=== PATIENT | male | born 1955 | race Caucasian/White ===

== ENCOUNTER → 2016-09-22 | Outpatient (CLI) | payer BC ==
[~2016-09-22] MED LIST: ACHD5005 PO; ALLP300T PO; ALPR0.25 PO; ALPR0.254 PO; AMLO10TA82 PO; AMLO5TAB2 PO; ASP325TEC PO; ASP81TEC PO; ASPI-875 PO; ASPI-892 PO; ASPI-983 PO; ASPI-999 PO; ATOR80TA2 PO; ATOR80TA75 PO; ATOR80TA76 PO; CLON0.1T PO; CLOP75TA PO; CLOP75TA28 PO; CLPD75T PO; COLC0.6T56 PO; COLC0.6T7 PO; CYCL10TA9 PO; ESCI5TAB12 PO; FEBU80TA PO; FISH1CAP15 PO; FURO40TA PO; FURO40TA4 PO; HCTZ12.5T PO; HYDR-3714 PO; HYDR-3812 PO; HYDR25TA4 PO; INDO50CA PO; INSU100I16 SQ; INSU100I29 SQ; INSU100V5 SQ; INSU100V6 SQ; ISM30TCR PO; MAGN400T6 PO; METF-380 PO; METF1000 PO; METH4TAB10 PO; METO-272 PO; METO-274 PO; METO100T5 PO; MTP100TCR PO; NIA500ERT PO; NTR.4SL SL; OMEG1CAP51 PO; OXYC-471 PO; PANT40TA3 PO; POTA10TA86 PO; RAMI10TA PO; RAMI2.5C PO; RAMI5CAP PO; RANO10003 PO; RANO500T3 PO; RMP2.5C PO; SMV20T PO; SUCR1TAB PO; SUCR1TAB36 PO; TEMA15CA6 PO; Ticagrelor PO; ZLP10T PO; ZOLP10TA5 PO
--- OUTSIDE RECORDS SUMMARY | 2016-09-22 13:30 | XMS REPORT | Continuity of Care Document ---
Author Author [facility] Organization [facility] Address Unknown Phone Unavailable Care Team Providers Care Mobile Paramedical Examiner Name Role Phone BENJAMIN ROMAN DO PCP Insurance Providers Payer Name Policy Number Subscriber Name Relationship [facility] [id number] Mickey Gillette 20 Self / Same As Patient Advance Directives Directive Response Recorded Date/Time Advance Directives No 04/02/14 1:10pm Health Care Power of Acid Tester No 04/02/14 1:10pm Organ Donor Yes 04/02/14 1:10pm Resuscitation Status Full Code 04/02/14 1:10pm Chief Complaint and Reason for Visit Chief Complaint CHEST PAIN Reason for Visit Coronary artery disease Problems Medical Problems Problem Onset Date Status Coronary artery disease Unknown Resolved Medications Medication Dose Route Sig Days/Qty Instructions Order Date Discontinued Date Status Metformin HCl (Glucophage) 1,000 Mg PO TWICE A DAY WITH MEALS Active Hydrochlorothiazide 12.5 Mg PO DAILY 01/21/11 11/08/13 Discontinued Amlodipine Besylate (Norvasc 10 Mg) 10 Mg PO DAILY 01/21/11 Discontinued Ramipril 10 Mg PO DAILY 01/21/11 04/04/14 Discontinued Aspirin 81 Mg PO DAILY 01/21/11 01/22/11 Discontinued Nitroglycerin 0.4 Mg SL PRN CHEST PAIN 01/21/11 11/08/13 Discontinued [place]-3 Fatty Acids/Fish Oil 1,000 Mg PO DAILY 01/21/11 11/08/13 Discontinued Allopurinol 300 Mg PO DAILY 01/21/11 11/08/13 Discontinued Simvastatin 20 Mg PO DAILY 01/21/11 11/08/13 Discontinued Metoprolol Succinate 50 Mg PO EVERY PM 01/21/11 11/08/13 Discontinued Metoprolol Succinate 100 Mg PO TWICE A DAY 01/21/11 04/04/14 Discontinued Niacin 1,000 Mg PO DAILY 01/21/11 11/08/13 Discontinued Insulin Glargine,Hum.rec.anlog 90 Unit SQ BEDTIME 01/21/11 11/08/13 Discontinued Clopidogrel Bisulfate 75 Mg PO DAILY 01/21/11 04/02/14 Discontinued Zolpidem Tartrate 10 Mg PO BEDTIME PRN SLEEP NEEDED FOR SLEEP Active Aspirin 325 Mg PO DAILY 01/22/11 04/04/14 Discontinued Hydrochlorothiazide 25 Mg PO DAILY 11/08/13 Active Atorvastatin Calcium 80 Mg PO DAILY 11/08/13 Active Potassium Chloride 10 Meq PO DAILY 11/08/13 Active Fish Oil/Dha/Epa 1,200 Mg PO DAILY 11/08/13 Active Nitroglycerin 0 SL DIRECTED PRN CHEST PAIN 11/08/13 Active Insulin Detemir 50 Unit SQ TWICE A DAY 11/08/13 04/04/14 Discontinued Indomethacin 50 Mg PO THREE TIMES A DAY PRN GOUT PAIN NEEDED FOR GOUT FLARES 11/08/13 04/04/14 Discontinued Acetaminophen/Hydrocodone Bitart 1 Tab PO THREE TIMES A DAY PRN PAIN 5- 325MG TABLET 11/08/13 Active Febuxostat 80 Mg PO DAILY 0 Qty 04/02/14 Active Clopidogrel Bisulfate 75 Mg PO DAILY 30 Qty 04/04/14 Active Ramipril 2.5 Mg PO DAILY 30 Qty 04/04/14 Active [Ticagrelor] 90 Mg PO TWICE A DAY 60 Qty 04/04/14 Active Metoprolol Succinate 150 Mg PO TWICE A DAY 90 Qty 04/04/14 Active Insulin Detemir 55 Unit SQ TWICE A DAY 5 Qty 04/04/14 Active Aspirin 81 Mg PO DAILY 30 Qty 04/04/14 Active Social History Social History Problem Response Recorded Date/Time Alcohol Use Denies Use 04/02/2014 1:10pm Recreational Drug Use No 04/02/2014 1:10pm Smoking Status Former Smoker 04/02/2014 2:33pm Do you dip or chew tobacco? No 04/02/2014 2:33pm Query Response Start Date Stop Date Smoking Status Former Smoker Hospital Discharge Instructions Patient Instructions Physician Instructions New, Converted, or Re-newed RX: Call to Patient Pharmacy Plan of Care/Instructions/FU: pt needs to follow up with cardiology in [address] roman in the next 2 weeks pt needs to bring in a copy of his blood glucose readings to his next office visit with dr. roman. Activity as Tolerated: Yes Dicharge Diet: ADA Diet Return to the hospital for: chest pain, shortness of breath, unusual bleeding, severe fatigue, abdominal pain, blood from stool, or any concern for lifethreatening illness or injury Plan of Care Discharge Date 04/04/14 7:00pm Disposition 01 HOME, SELF-CARE Instructions/Education Provided Myocardial Infarction (DC) Forms Provided Follow-Up Appts. Prescriptions See Medications Section Functional Status Query Response Date Recorded Patient Orientation Person Place Time Situation Normal For Age April 04, 2014 9:52pm Comprehension Ability Understands Concepts April 04, 2014 8:30am Allergies, Adverse Reactions, Alerts Allergen Type Severity Reaction Status Last Updated carvedilol Allergy Unknown Active 01/22/10 Immunizations Name Given Type Date of Influenza Vaccine 10/26/13 Historical pneumococcal polysaccharide PPV23 04/04/14 Administered pneumococcal polysaccharide PPV23 04/04/14 Administered pneumococcal polysaccharide PPV23 04/04/14 Administered Vital Signs Acute Vital Signs Vital Response Date/Time Temperature (Fahrenheit) 98.0 degrees F (97.6 - 99.5) Temperature (Calculated Celsius) 36.81540 degrees C (36.4 - 37.5) Temperature Source Tympanic Pulse Rate (adult) 84 bpm (60 - 90) Respiratory Rate 20 bpm (12 - 24) O2 Sat by Pulse Oximetry 97 % (88 - 100) Blood Pressure 121/80 mm Hg Pain Pain Intensity 0 Height (Feet) 5 feet Height (Inches) 8.00 inches Height (Calculated Centimeters) 172.282046 cm Weight (Pounds) 188 pounds Weight (Ounces) 9.0 oz Weight (Calculated Grams) 84352.512 gm Weight (Calculated Kilograms) 85.202866 kilograms Calculated BMI 28.89 Results Test Source Date Result Interp. Ref. Range Comments Activated Partial Thromboplast Time November 07, 2013 8:35am 36 SEC H 24- 35 Alanine Aminotransferase (ALT/SGPT) November 07, 2013 8:35am 34 U/L N 30- 65 Albumin November 07, 2013 8:35am 3.9 G/DL N 3.4-5.0 Alkaline Phosphatase November 07, 2013 8:35am 69 U/L N 50-136 Aspartate Amino Transf (AST/SGOT) November 07, 2013 8:35am 12 U/L L 15-37 BUN/Creatinine Ratio November 07, 2013 8:35am 13 - Basophils # (Auto) May 24, 2013 7:57am 0.0 10^3/uL N 0.0-0.1 Basophils (%) (Auto) May 24, 2013 7:57am 0 % N 0-10 Blood Urea Nitrogen November 07, 2013 8:35am 16 MG/DL N 7-18 Calcium Level November 07, 2013 8:35am 9.5 MG/DL N 8.5-10.1 Carbon Dioxide Level November 07, 2013 8:35am 24 MMOL/L N 21-32 Chloride Level November 07, 2013 8:35am 102 MMOL/L N 101-110 Cholesterol Level November 07, 2013 8:35am 98 MG/DL N -200 Creatinine November 07, 2013 8:35am 1.2 MG/DL N 0.6-1.3 Eosinophils # (Auto) May 24, 2013 7:57am 0.7 10^3/uL H 0.0-0.3 Eosinophils (%) (Auto) May 24, 2013 7:57am 7 % N 0-10 Free Thyroxine May 24, 2013 7:57am 0.65 NG/DL N 0.59-1.17 Glucose Level November 07, 2013 8:35am 262 MG/DL H 74-106 HDL Cholesterol November 07, 2013 8:35am 26 MG/DL L 35-60 Hematocrit November 07, 2013 8:35am 43 % N 40-54 Hemoglobin November 07, 2013 8:35am 15.0 G/DL N 13.3-17.7 Hemoglobin A1c January 25, 2014 11:57am 7.2 % H 4.5-6.2 LDL Cholesterol November 07, 2013 8:35am 50 MG/DL N 0-129 Lymphocytes # (Auto) May 24, 2013 7:57am 2.6 X 10^3 N 1.0-4.0 Lymphocytes (%) (Auto) May 24, 2013 7:57am 26 % N 12-44 Mean Corpuscular Hemoglobin November 07, 2013 8:35am 30 PG N 25-34 Mean Corpuscular Hemoglobin Concent November 07, 2013 8:35am 35 G/DL N 32- 36 Mean Corpuscular Volume November 07, 2013 8:35am 85 FL N 80-99 Mean Platelet Volume November 07, 2013 8:35am 9.6 FL N 7.4-10.4 Monocytes # (Auto) May 24, 2013 7:57am 0.5 X 10^3 N 0.0-1.0 Monocytes (%) (Auto) May 24, 2013 7:57am 6 % N 0-12 Neutrophils # (Auto) May 24, 2013 7:57am 6.0 X 10^3 N 1.8-7.8 Neutrophils (%) (Auto) May 24, 2013 7:57am 61 % N 42-75 Platelet Count November 07, 2013 8:35am 291 10^3/uL N 130-400 Potassium Level November 07, 2013 8:35am 3.8 MMOL/L N 3.6-5.0 Prostate Specific Antigen May 24, 2013 7:57am 0.35 NG/ML - Interpretative data is available online at:[email or web address] Enter Test Number:[id number] Prothromb Time International Ratio January 20, 2011 8:05am 1.0 N 0.8-1.4 INTERPRETIVE DATASUGGESTED THERAPEUTIC RANGE FOR INR'S: VENOUS THROMBOSIS, PULMONARY EMBOLISM, OR PREVENTION OF SYSTEMIC EMBOLISM (EG. IN ATRIAL FIBRILLATION): 2.0 - 3.0 MECHANICAL PROSTHETIC HEART VALVES: 2.5 - 3.5* *NOTE: INR'S UP TO 4.5 MAY BE NECESSARY IN SELECTED GROUPS OF HIGH RISK PATIENTS. [employer] [place] [employer] CONSENSUS CONFERENCE ON ANTITHROMBOTIC THERAPY (2000). Prothrombin Time November 07, 2013 8:35am 12.4 SEC N 12.2-14.7 Red Blood Count November 07, 2013 8:35am 5.04 10^6/uL N 4.35-5.85 Red Cell Distribution Width November 07, 2013 8:35am 13.1 % N 10.0-14.5 Sodium Level November 07, 2013 8:35am 137 MMOL/L N 135-145 Thyroid Stimulating Hormone (TSH) May 24, 2013 7:57am 0.96 UIU/ML N 0.34-5.60 Total Bilirubin November 07, 2013 8:35am 0.4 MG/DL N 0.0-1.0 Total Protein November 07, 2013 8:35am 7.8 G/DL N 6.4-8.2 Triglycerides Level November 07, 2013 8:35am 108 MG/DL N 30.0-150.0 Uric Acid March 16, 2013 8:33am 8.5 MG/DL H 2.6-7.2 VLDL Cholesterol November 07, 2013 8:35am 22 MG/DL N 5-40 White Blood Count November 07, 2013 8:35am 12.4 10^3/uL H 4.3-11.0 Glucometer January 22, 2011 6:50am 155 MG/DL H 70-110 Estimat Glomerular Filtration Rate November 07, 2013 8:35am > 60 - GFR INTERPRETIVE DATA UNITS FOR ESTIMATED GFR (eGFR): mL/min/1.73 M2 REFERENCE RANGE FOR ESTIMATED GFR (eGFR) eGFR NORMAL eGFR >60 MODERATELY DECREASED eGFR 30-59 SEVERLY DECREASED eGFR 15-29 KIDNEY FAILURE <15 (OR DIALYSIS) INR Comment November 07, 2013 8:35am 0.9 N 0.8-1.4 INTERPRETIVE DATASUGGESTED THERAPEUTIC RANGE FOR INR'S: VENOUS THROMBOSIS, PULMONARY EMBOLISM, OR PREVENTION OF SYSTEMIC EMBOLISM (EG. IN ATRIAL FIBRILLATION): 2.0 - 3.0 MECHANICAL PROSTHETIC HEART VALVES: 2.5 - 3.5* *NOTE: INR'S UP TO 4.5 MAY BE NECESSARY IN SELECTED GROUPS OF HIGH RISK PATIENTS. [employer] [place] [employer] CONSENSUS CONFERENCE ON ANTITHROMBOTIC THERAPY (2000). MRSA Screen Nasal January 21, 2010 9:35am MRSA not isolated Procedures Procedure Status Date Provider(s) Tracing only of electrocardiogram completed 04/02/14 TRISHA ANDRE MD Tracing only of electrocardiogram completed 04/02/14 ROBERT CALLAHAN MD Tracing only of electrocardiogram completed 04/02/14 ROBERT CALLAHAN MD Tracing only of electrocardiogram completed 04/02/14 Elli AGUIRRE MD Tracing only of electrocardiogram completed 04/03/14 Elli AGUIRRE MD Tracing only of electrocardiogram completed 04/04/14 Elli AGUIRRE MD Encounters Encounter Location Date/Time Discharged Inpatient Via [facility] 04/03/14 8:58am Recent Diagnosis Coronary artery disease
--- NOTE | 2016-09-24 08:29 | ECHOCARDIOGRAPHY REPORT ---
PROCEDURE PHYSICIAN: RANJAN CABRERA DATE OF PROCEDURE: 09/22/2016 TWO DIMENSIONAL ECHOCARDIOGRAM REPORT PRIMARY PHYSICIAN: Dr. Umanzor OTHER PHYSICIAN: REFERRING PHYSICIAN: ORDERING PHYSICIAN: Denise Navarrete APRN INDICATION FOR THE PROCEDURE: 1. Coronary artery disease. 2. Hypertension. 3. Hyperlipidemia. 4. Chest discomfort. MEASUREMENTS DERIVED VALUES LV DIAMETER (LAX) NORMALS NORMALS Diastolic 5.3 (3.6-5.2) Eject. Fract. (60%+/-6%) Systolic (2.3-3.9) Diastolic Vol. % Shortening (0.22-0.42) Systolic Vol. Aortic Root 3.4 IVS THICKNESS Diastolic 0.7 (0.6-1.1) LVPW THICKNESS Diastolic 0.8 (0.6-1.1) LA DIAMETER Systolic 3.5 (2.1-3.7) DESCRIPTION: Two-dimensional echocardiography shows normal global left ventricular systolic function with normal regional wall motion. Aortic, mitral and tricuspid valve leaflets show good leaflet excursion. Left ventricular ejection fraction is approximately 65%. Doppler imaging shows trivial tricuspid regurgitation. There is no Doppler evidence of significant valvular stenosis. Aortic valve leaflets are not very well visualized. There is no evidence of significant intracardiac shunt. Mitral inflow is suggestive of moderate diastolic dysfunction of the left ventricle. Inferior vena cava does exhibit inspiratory collapse. There is no evidence of significant valvular stenosis. Pulmonary artery systolic pressure is estimated to be approximately 20 mmHg. CONCLUSIONS: 1. Well preserved left ventricular systolic function with an ejection fraction of approximately 65%. 2. Moderate diastolic dysfunction of the left ventricle. 3. Trivial tricuspid regurgitation and pulmonary artery systolic pressure is approximately 20 mmHg. 4. No evidence of any significant valvular stenosis. Job ID: [id number] Dictated Date: 09/23/2016 14:21:34 Research And Development Manager Date: 09/24/2016 08:22:49 / tbk
== END ==
LOC: CARD 13:27
PROVIDERS: ATTEND Nurse Practitioner Family
DX: R06.09 Other forms of dyspnea (principal); I25.10 Atherosclerotic heart disease of native coronary artery without angina pectoris; I65.23 Occlusion and stenosis of bilateral carotid arteries; I10 Essential (primary) hypertension; E78.4 Other hyperlipidemia
CPT/HCPCS: 93306

== ENCOUNTER 2016-09-23 08:44 | Day surgery (SDC) | payer BC ==
[2016-09-23] VITALS (10 sets, daily range): BP systolic 142–157; BP diastolic 79–92
[~2016-09-23] VITALS: Ht 172.7 cm; Wt 79.4 kg
[~2016-09-23 08:44] MED LIST changes: -RAMI5CAP PO
[2016-09-23] MEDS ORDERED: LIDOCAINE 1% INJ 20 ML (XYLOCAINE) VIAL ONE (08:46)
[2016-09-23] MEDS ORDERED: HEParin (CATH LAB) 2,000 ML IV ONE (08:47)
[2016-09-23] MEDS ORDERED: NS IV 1000 ML 1,000 ML ONE (08:47)
--- OUTSIDE RECORDS SUMMARY | 2016-09-23 08:48 | XMS REPORT | Continuity of Care Document ---
Author Author [facility] Organization [facility] Address Unknown Phone Unavailable Care Team Providers Care Preschool Teacher Name Role Phone BENJAMIN ROMAN DO PCP Insurance Providers Payer Name Policy Number Subscriber Name Relationship [facility] [id number] Mickey Gillette 20 Self / Same As Patient Advance Directives Directive Response Recorded Date/Time Advance Directives No 04/02/14 1:10pm Health Care Power of Melter Helper No 04/02/14 1:10pm Organ Donor Yes 04/02/14 [...] SL PRN CHEST PAIN 01/21/11 11/08/13 Discontinued [place]-3 Fatty Acids/Fish Oil 1,000 Mg PO DAILY [...] F (97.6 - 99.5) Temperature (Calculated Celsius) 36.45327 degrees C (36.4 - 37.5) Temperature Source Tympanic Pulse Rate (adult) 84 bpm (60 - 90) Respiratory Rate 20 bpm (12 - 24) O2 Sat by Pulse Oximetry 97 % (88 - 100) Blood Pressure 121/80 mm Hg Pain Pain Intensity 0 Height (Feet) 5 feet Height (Inches) 8.00 inches Height (Calculated Centimeters) 172.924439 cm Weight (Pounds) 188 pounds Weight (Ounces) 9.0 oz Weight (Calculated Grams) 94454.512 gm Weight (Calculated Kilograms) 85.969729 kilograms Calculated BMI 28.89 Results Test Source [...] NG/ML - Interpretative data is available online at:[email or web address] Enter Test Number:[id number] Prothromb Time International Ratio January 20, 2011 8:05am 1.0 N 0.8-1.4 INTERPRETIVE DATASUGGESTED THERAPEUTIC RANGE FOR INR'S: VENOUS THROMBOSIS, PULMONARY EMBOLISM, OR PREVENTION OF SYSTEMIC EMBOLISM (EG. IN ATRIAL FIBRILLATION): 2.0 - 3.0 MECHANICAL PROSTHETIC HEART VALVES: 2.5 - 3.5* *NOTE: INR'S UP TO 4.5 MAY BE NECESSARY IN SELECTED GROUPS OF HIGH RISK PATIENTS. [employer] [place] [employer] CONSENSUS CONFERENCE ON [...] SELECTED GROUPS OF HIGH RISK PATIENTS. [employer] CONSENSUS CONFERENCE ON [...] Encounters Encounter Location Date/Time Discharged Inpatient Via [facility] 04/03/14 8:58am Recent Diagnosis Coronary artery disease
--- OUTSIDE RECORDS SUMMARY | 2016-09-23 08:48 | XMS REPORT | Continuity of Care Document ---
Author Author [facility] Organization [facility] Address Unknown Phone Unavailable Care Team Providers Care Regional Branch Manager Name Role Phone BENJAMIN ROMAN DO PCP Insurance Providers Payer Name Policy Number Subscriber Name Relationship [facility] [id number] Mickey Gillette 20 Self / Same As Patient Advance Directives Directive Response Recorded Date/Time Advance Directives No 04/02/14 1:10pm Health Care Power of Machine Adjuster Leader No 04/02/14 1:10pm Organ Donor Yes 04/02/14 [...] SL PRN CHEST PAIN 01/21/11 11/08/13 Discontinued [place]-3 Fatty Acids/Fish Oil 1,000 Mg PO DAILY [...] F (97.6 - 99.5) Temperature (Calculated Celsius) 36.68292 degrees C (36.4 - 37.5) Temperature Source Tympanic Pulse Rate (adult) 84 bpm (60 - 90) Respiratory Rate 20 bpm (12 - 24) O2 Sat by Pulse Oximetry 97 % (88 - 100) Blood Pressure 121/80 mm Hg Pain Pain Intensity 0 Height (Feet) 5 feet Height (Inches) 8.00 inches Height (Calculated Centimeters) 172.037902 cm Weight (Pounds) 188 pounds Weight (Ounces) 9.0 oz Weight (Calculated Grams) 93002.512 gm Weight (Calculated Kilograms) 85.153921 kilograms Calculated BMI 28.89 Results Test Source [...] NG/ML - Interpretative data is available online at:[email or web address] Enter Test Number:[id number] Prothromb Time International Ratio January 20, 2011 8:05am 1.0 N 0.8-1.4 INTERPRETIVE DATASUGGESTED THERAPEUTIC RANGE FOR INR'S: VENOUS THROMBOSIS, PULMONARY EMBOLISM, OR PREVENTION OF SYSTEMIC EMBOLISM (EG. IN ATRIAL FIBRILLATION): 2.0 - 3.0 MECHANICAL PROSTHETIC HEART VALVES: 2.5 - 3.5* *NOTE: INR'S UP TO 4.5 MAY BE NECESSARY IN SELECTED GROUPS OF HIGH RISK PATIENTS. [employer] [place] [employer] CONSENSUS CONFERENCE ON [...] SELECTED GROUPS OF HIGH RISK PATIENTS. [employer] [place] [employer] CONSENSUS CONFERENCE ON [...] Encounters Encounter Location Date/Time Discharged Inpatient Via [facility] 04/03/14 8:58am Recent Diagnosis Coronary artery disease
[2016-09-23] MEDS ORDERED: NS IV 1000 ML 1,000 ML IV SCH ×2 (08:55→11:49)
[2016-09-23] MEDS ORDERED: CLON0.1T PO (09:48)
[2016-09-23] MEDS ORDERED: RAMI5CAP PO (09:56)
[2016-09-23 10:09] LABS: MEAN PLATELET VOLUME 9.5 FL (7.4-10.4); RED BLOOD COUNT 5.15 10^6/uL (4.35-5.85); RED CELL DISTRIBUTION WIDTH 13.6 % (10.0-14.5); WHITE BLOOD COUNT 7.9 10^3/uL (4.3-11.0)
[2016-09-23] MEDS ORDERED: diphenhydrAMINE 50 MG/ML INJ (BENADRYL) ONE (10:10)
[2016-09-23] MEDS ORDERED: MIDAZOLAM 5 MG/5 ML (VERSED) VIAL ONE (10:10)
[2016-09-23] MEDS ORDERED: fentaNYL INJECTION 100 MCG/2 ML AMP ONE (10:10)
[2016-09-23 10:20] LABS: PROTHROMBIN TIME PATIENT 12.4 SEC (12.2-14.7)
[2016-09-23 10:29] LABS: ALANINE AMINOTRANSFERASE 19 U/L (0-55); ANION GAP 13 MMOL/L (5-14); ASPARTATE AMINO TRANSFERASE 16 U/L (5-34); BILIRUBIN,TOTAL 0.4 MG/DL (0.1-1.0); BLOOD UREA NITROGEN 20 MG/DL (7-18); BUN/CREATININE RATIO 17; CALCIUM 9.5 MG/DL (8.5-10.1); CARBON DIOXIDE 20 MMOL/L (21-32); CHLORIDE 104 MMOL/L (98-107); CHOLESTEROL 162 MG/DL (< 200); CREATININE SERUM 1.19 MG/DL (0.60-1.30); DIRECT LDL 108 MG/DL (1-129); GFR ESTIMATED > 60; GLUCOSE 214 MG/DL (70-105); SODIUM 137 MMOL/L (135-145); TOTAL PROTEIN 6.9 G/DL (6.4-8.2); TRIGLYCERIDES 228 MG/DL (<150); VLDL CHOLESTEROL 46 MG/DL (5-40)
[2016-09-23] MEDS ORDERED: FLU TRIvalent (5 YOA+) 2016-17 (AFLURIA) 0.5 ML IM ONE (10:45)
--- NOTE | 2016-09-23 11:00 | Cardiac Procedure Note-CS/ASA ---
Pre-Procedure Note Pre-Op Procedure Note H&P Reviewed The H&P was reviewed, patient examined and no changes noted. Date H&P Reviewed: Sep 23, 2016 Time H&P Reviewed: 10:59 Conscious Sedation Pre-Proced Time Reviewed: 10:59 ASA Class: 3 Airway Mallampati Classification: ([place] appropriate class) I. II. III, IV Lungs Heart ASA score ASA 1: a normal healthy patient ASA 2: a patient with a mild systemic disease (mid diabetes, controlled hypertension, obesity ASA 3: a patient with a severe systemic disease that limits activity (angina , COPD, prior Myocardial infarction) ASA 4: a patient with an incapacitating disease that is a constant threat to life (CHF, renal failure) ASA 5: a moribund patient not expected to survive 24 hrs. (ruptured aneurysm) ASA 6: a declared brain patient whose organs are being harvested. For emergent operations, add the letter E after the classification Grade 2 Sedation Plan: Analgesia, Amnesia, Plan communicated to team members, Discussed options with patient/fam, Discussed risks with patient/fam Note The patient is an appropriate candidate to undergo the planned procedure, sedation, and anesthesia. The patient immediately re-assessed prior to indication. RANJAN CABRERA MD FACP [facility] Sep 23, 2016 11:00
[2016-09-23] MEDS ORDERED: ADENOSINE 3 MG/1 ML (ADENOSCAN) 30ML VIAL IV ONE (11:09)
[2016-09-23] MEDS ORDERED: HEParin 1000 UNIT/ML (10ML VIAL) FOR BOLUS ONE (11:09)
[2016-09-23] MEDS ORDERED: ASPI-999 PO (11:53)
--- NOTE | 2016-09-23 11:55 | Discharge Inst-Post CATH ---
Discharge Inst-CATH Post Cardiac Cath D/C Inst Follow Up/Plan F/u with Dr Tracy in 1-2 weeks CARDIAC CATH DISCHARGE INSTRUCTIONS *Hold Metformin for 48 hours post heart cath. ACTIVITY * Go Home directly and rest. * Limit activity of the leg (or wrist if it was used) for 7 days including aerobics, swimming, jogging, bicycling, etc. * Restrict stair-climbing for 7 days if possible, if not, climb up with your non -cath leg, then bring together on the same step. * Avoid lifting, pushing, pulling or excessive movement of the affected extremity for 7 days. * Customary sexual activity may be resumed after 2 days-use caution not to use a position that strains or causes pain to the affected extremity. * No driving for 24 hours. * NO SMOKING. * Avoid straining for bowel movements for 7 days. * Gentle walking on level ground is allowed. * Returning to work will depend on the type of procedure and the results. Your doctor will discuss this with you. CALL YOUR DOCTOR FOR ANY OF THE FOLLOWING: *If bleeding from the puncture site occurs- Apply gentle pressure to site with clean cloth and call your doctor or EMS. * If a knot or lump forms under the skin, increases in size, or causes pain. * If bruising appears to be worsening or moving further down your leg instead of disappearing. * Temperature above 101 F. CARE OF YOUR GROIN INCISION; * Bruising or purple discoloration of the skin near the puncture site is common. * You may shower only, no bathtub bathing for 5 days. Be careful to avoid slipping as your leg may feel stiff. * If a closure device was used on your femoral artery, please see the attached guide regarding care of the device and your leg. * REMOVE the dressing from your groin the next day after your procedure in the shower. CARE OF YOUR WRIST INCISION; * Bruising or purple discoloration of the skin near the puncture site is common. * You may shower. * DO NOT submerge wrist. * Remove dressing in 24 hours. RANJAN TRACY MD [facility] Sep 23, 2016 11:54
--- NOTE | 2016-09-23 11:55 | Discharge Inst-Cardiology ---
Discharge Inst-Cardiac Discharge Medications New Medications: Aspirin (Aspirin) 81 Mg Tab.chew 81 MG PO DAILY #90 Ref 3 TAB Continued Medications: Alprazolam (Alprazolam) 0.25 Mg Tablet 0.25 MG PO BID PRN ANXIETY Amlodipine Besylate (Amlodipine Besylate) 5 Mg Tablet 5 MG PO DAILY #30 Ref 3 TAB Atorvastatin Calcium (Atorvastatin Calcium) 80 Mg Tablet 80 MG PO HS Clonidine HCl (Clonidine HCl) 0.1 Mg Tablet 0.1 MG PO HS TAB Clopidogrel Bisulfate (Clopidogrel) 75 Mg Tablet 75 MG PO DAILY Colchicine (Colchicine) 0.6 Mg Tablet 0.6 MG PO BID PRN GOUT PAIN Febuxostat (Uloric) 80 Mg Tablet 80 MG PO DAILY Furosemide (Furosemide) 40 Mg Tablet 40 MG PO DAILY Hydrocodone/Acetaminophen (Hydrocodon -Acetaminophen 5-325) 1 Each Tablet 1-2 TAB PO Q4H PRN PAIN Insulin Detemir (Levemir Flextouch) 100 Unit/1 Ml Insuln.pen 85 UNITS SQ BID Metoprolol Succinate (Metoprolol Succinate) 100 Mg Tab.er.24h 150 MG PO BID TAKES 1 & 1/2 (100MG) TABLET Pantoprazole Sodium (Pantoprazole Sodium) 40 Mg Tablet. 40 MG PO BID Ramipril (Ramipril) 5 Mg Capsule 5 MG PO DAILY CAP Sucralfate (Carafate) 1 Gm Tablet 1 GM PO QID Discontinued Medications: Aspirin (Aspirin EC) 81 Mg Tablet. 81 MG PO DAILY #100 Ref 4 TAB RANJAN CABRERA MD [facility] Sep 23, 2016 11:55
[2016-09-23] MEDS ORDERED: PATIENT MAY USE OWN MEDS, ALL PO SCH (12:00)
--- NOTE | 2016-09-23 13:45 | CARDIAC CATHETERIZATION ---
PROCEDURE PHYSICIAN: RANJAN CABRERA DATE OF PROCEDURE: 09/23/2016 Mickey Contreras is a 61-year-old man with a known coronary artery disease with multiple coronary artery disease risk factors and recent onset chest discomfort suggesting of new and progressive angina pectoris. Cardiac catheterization was carried out after having obtained an informed consent. PROCEDURE: He was brought to the cardiac catheterization laboratory in a fasting state. The right groin was prepared and draped usual sterile fashion. 1% lidocaine was used for local anesthesia. Modified Seldinger technique was used to advance a 5-Zambian sheath in right femoral artery. 5-Zambian JL4 catheter was used for left coronary angiography. 5-Zambian JR4 catheter was used for right coronary angiography. 5-Zambian pigtail catheter was used for left heart catheterization and left ventricular angiography. The pigtail catheter was pulled back and then removed. FRACTIONAL FLOW RESERVE MEASUREMENT IN THE RIGHT CORONARY ARTERY: Following completion of the diagnostic procedure, we carried out fractional flow reserve measurement in the right coronary artery. We exchanged the sheath over a wire for a 6-Zambian sheath. We used a 6-Zambian JR4 guide catheter to engage the right coronary artery. We advanced an Aeris wire across the proximal and mid lesions in the right coronary artery and the tip was placed in the distal vessel. 140 mcg/kg infusion of adenosine was carried out for 2-1/2 minutes. Fractional flow reserve was 0.94, indicating hemodynamic non-significance of the lesion in the proximal and mid right coronary artery. The wire was removed. Repeat coronary angiography was performed. The catheter was removed. Angiography of the right femoral artery was carried out through the sheath. Mynx was used to achieve hemostasis. HEMODYNAMICS: Left ventricular end diastolic pressure following coronary angiography was 14 mmHg. There is no significant pressure gradient on pullback across the aortic valve. Ascending aortic pressure was 146/87 with a mean 85 mmHg. LEFT VENTRICULAR ANGIOGRAPHY: Left ventricular angiography was carried out in the right anterior oblique position. Global left ventricular systolic function is normal. Left ventricular ejection fraction is approximately 55 to 60%. There does not appear to be significant mitral regurgitation. CORONARY ANGIOGRAPHY: Diffuse coronary calcification is present. The left main coronary artery does not exhibit significant obstructive disease. The left anterior descending artery has a widely patent stented area in its midportion. The left anterior descending artery exhibits moderate diffuse disease. The very terminal portion of the left anterior descending artery has 80 to 90% stenoses. The first diagonal branch of the left circumflex artery is of small caliber and has diffuse disease with stenoses up to 60 to 70%. The left circumflex artery has mild to moderate disease. The terminal obtuse marginal has approximately 60% proximal stenosis. Small caliber subbranches from a large first obtuse marginal branch have moderate to moderately severe disease. The right coronary artery is dominant. The distal posterolateral system of the right coronary artery has stenoses up to 80 to 90% but the vessel is of a small caliber here and not amenable to intervention. In the proximal and mid right coronary artery has stenoses of up to 50 to 60% and fractional flow reserve across these lesions is 0.94, indicating hemodynamic non-significance. The distal right coronary artery has a patent stent. CONCLUSION: 1. Coronary disease as detailed above. The mid left anterior descending artery has overlapping Promus 3 x 12 mm and 2.25 x 16 mm stent that have been postdilated with a 3-0 balloon at the overlap (March 2014). These stents are widely patent without significant disease. The left anterior descending artery exhibits diffuse, moderate disease and the very terminal portion of the left anterior descending artery has severe disease that was not amenable to intervention to this small vessel caliber. The left circumflex artery has diffuse, moderate disease and the disease is mostly in the terminal small caliber branches. The right coronary artery is dominant and has up to 50 to 60% proximal and mid vessel stenoses and the fractional flow reserve across these is 0.94, indicating hemodynamic non-significance. The very distal portion of the right coronary artery has severe disease, but this is in multiple vessels of a small caliber that are not amenable to intervention. There is a patent stent in the distal right coronary artery that is known to be Promus 2.25 x 18 mm. 2. Well preserved global left ventricular systolic function with an ejection fraction of 55 to 60%. 3. Mild elevation left ventricular end-diastolic pressure. 4. No significant mitral regurgitation. DISCUSSION AND RECOMMENDATIONS: Based on the results of this study, it appears appropriate to continue a conservative approach. Close outpatient follow-up is advised. Job ID: [id number] Dictated Date: 09/23/2016 11:44:42 Poacher Operator Date: 09/23/2016 13:28:53 / [email or web address]
== END 2016-09-23 16:45 | disposition home or self-care (01) ==
LOC: CATH 08:44 → SURG 11:59 → CATH 16:45
PROVIDERS: ATTEND Nurse Practitioner Family
DX: R07.89 Other chest pain (principal); I25.10 Atherosclerotic heart disease of native coronary artery without angina pectoris; I25.84 Coronary atherosclerosis due to calcified coronary lesion; I10 Essential (primary) hypertension; R06.09 Other forms of dyspnea; E11.9 Type 2 diabetes mellitus without complications; F41.9 Anxiety disorder, unspecified; E78.5 Hyperlipidemia, unspecified; Z79.899 Other long term (current) drug therapy; Z95.5 Presence of coronary angioplasty implant and graft
CPT/HCPCS: 36415; 80053; 80061; 85027; 85610; 85730; 87081; 93005; 93458; 93571

== ENCOUNTER → 2016-11-17 | Outpatient (CLI) | payer BC ==
[~2016-11-17] MED LIST changes: +RAMI5CAP PO
--- OUTSIDE RECORDS SUMMARY | 2016-11-17 10:56 | XMS REPORT | Continuity of Care Document ---
Author Author [facility] Organization [facility] Address Unknown Phone Unavailable Care Team Providers Care Agency Director Name Role Phone BENJAMIN ROMAN DO PCP Insurance Providers Payer Name Policy Number Subscriber Name Relationship [facility] [id number] Mickey [place] 20 Self / Same As Patient Advance Directives Directive Response Recorded Date/Time Advance Directives No 04/02/14 1:10pm Health Care Power of Cd Reactor Operator No 04/02/14 1:10pm Organ Donor Yes 04/02/14 [...] SL PRN CHEST PAIN 01/21/11 11/08/13 Discontinued [place]-3 Fatty Acids/Fish Oil 1,000 Mg PO DAILY [...] F (97.6 - 99.5) Temperature (Calculated Celsius) 36.69749 degrees C (36.4 - 37.5) Temperature Source Tympanic Pulse Rate (adult) 84 bpm (60 - 90) Respiratory Rate 20 bpm (12 - 24) O2 Sat by Pulse Oximetry 97 % (88 - 100) Blood Pressure 121/80 mm Hg Pain Pain Intensity 0 Height (Feet) 5 feet Height (Inches) 8.00 inches Height (Calculated Centimeters) 172.857957 cm Weight (Pounds) 188 pounds Weight (Ounces) 9.0 oz Weight (Calculated Grams) 51965.512 gm Weight (Calculated Kilograms) 85.787295 kilograms Calculated BMI 28.89 Results Test Source [...] NG/ML - Interpretative data is available online at:[email or web address] Enter Test Number:[id number] Prothromb Time International Ratio January 20, 2011 8:05am 1.0 N 0.8-1.4 INTERPRETIVE DATASUGGESTED THERAPEUTIC RANGE FOR INR'S: VENOUS THROMBOSIS, PULMONARY EMBOLISM, OR PREVENTION OF SYSTEMIC EMBOLISM (EG. IN ATRIAL FIBRILLATION): 2.0 - 3.0 MECHANICAL PROSTHETIC HEART VALVES: 2.5 - 3.5* *NOTE: INR'S UP TO 4.5 MAY BE NECESSARY IN SELECTED GROUPS OF HIGH RISK PATIENTS. [employer] CONSENSUS CONFERENCE ON [...] SELECTED GROUPS OF HIGH RISK PATIENTS. [employer] CONSENSUS CONFERENCE ON [...] Encounters Encounter Location Date/Time Discharged Inpatient Via [facility] 04/03/14 8:58am Recent Diagnosis Coronary artery disease
--- NOTE | 2016-11-17 14:34 | Diagnostic Imaging Report ---
EXAMINATION: Three views of the thoracic spine. INDICATION: Back pain. FINDINGS: There is right convexity scoliosis centered around the upper thoracic spine levels. The alignment of the posterior spinal line is satisfactory. The vertebral body heights appear preserved. There are multilevel anterior osteophytes, most prominent at the mid thoracic spine. No definite significant posterior osteophytes noted. IMPRESSION: Significant right convexity scoliosis centered around the upper to mid thoracic spine. Dictated by: Dictated on workstation # [id number]
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
== END ==
LOC: RAD 10:52
PROVIDERS: ATTEND Chiropractor
DX: M54.6 Pain in thoracic spine (principal); R07.81 Pleurodynia
CPT/HCPCS: 71110; 72072

== ENCOUNTER 2017-02-16 03:19 | Observation (INO) | payer BC ==
[~2017-02-16] VITALS: Ht 177.8 cm; Wt 84.5 kg
[2017-02-16] MEDS ORDERED: RX-NITROGLYCERIN 0.4 MG TAB BTL 25'S SL PRN (03:30)
[2017-02-16 03:35] LABS: BASOPHILS % (AUTO) 0 % (0-10); EOSINOPHILS # (AUTO) 0.5 10^3/uL (0.0-0.3); EOSINOPHILS % (AUTO) 6 % (0-10); LYMPHOCYTES # (AUTO) 2.3 X 10^3 (1.0-4.0); LYMPHOCYTES % (AUTO) 25 % (12-44); MEAN CORPUSCULAR HEMOGLOBIN 28 PG (25-34); MEAN CORPUSCULAR HGB CONC 34 G/DL (32-36); MEAN CORPUSCULAR VOLUME 81 FL (80-99); MEAN PLATELET VOLUME 9.3 FL (7.4-10.4); MONOCYTES # (AUTO) 0.6 X 10^3 (0.0-1.0); MONOCYTES % (AUTO) 7 % (0-12); NEUTROPHILS # (AUTO) 5.7 X 10^3 (1.8-7.8); NEUTROPHILS % (AUTO) 62 % (42-75); PLATELET COUNT 278 10^3/uL (130-400); RED BLOOD COUNT 5.05 10^6/uL (4.35-5.85); RED CELL DISTRIBUTION WIDTH 14.8 % (10.0-14.5); WHITE BLOOD COUNT 9.2 10^3/uL (4.3-11.0)
[2017-02-16 03:45] LABS: PROTHROMBIN TIME PATIENT 13.2 SEC (12.2-14.7)
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
[2017-02-16 03:57] LABS: ALANINE AMINOTRANSFERASE 13 U/L (0-55); ALBUMIN 3.7 G/DL (3.2-4.5); ASPARTATE AMINO TRANSFERASE 14 U/L (5-34); BILIRUBIN,TOTAL 0.5 MG/DL (0.1-1.0); BLOOD UREA NITROGEN 12 MG/DL (7-18); BUN/CREATININE RATIO 12; CALCIUM 9.6 MG/DL (8.5-10.1); CARBON DIOXIDE 24 MMOL/L (21-32); CREATININE SERUM 0.98 MG/DL (0.60-1.30); GFR ESTIMATED > 60; GLUCOSE 118 MG/DL (70-105)
[2017-02-16 04:05] LABS: ANION GAP 10 MMOL/L (5-14); CHLORIDE 106 MMOL/L (98-107); POTASSIUM 3.4 MMOL/L (3.6-5.0); SODIUM 140 MMOL/L (135-145)
[2017-02-16 04:08] LABS: MYOGLOBIN SERUM 45.3 NG/ML (10.0-92.0)
[2017-02-16] MEDS ORDERED: NS IV 500 ML 500 ML IV ONE (04:25)
[2017-02-16] MEDS ORDERED: IOHEXOL 350 MG/ML 150 ML (OMNIPAQUE 350) VIAL IV ONE (05:00)
[2017-02-16] MEDS ORDERED: NS 100 ML (IVPB) BAG IV ONE (05:00)
[2017-02-16] MEDS ORDERED: KETOROLAC 30 MG/ML VIAL IVP STA (05:07)
[2017-02-16] MEDS ORDERED: NS IV 1000 ML 1,000 ML ONE (06:36)
[2017-02-16] MEDS ORDERED: CATHETER FLUSH 10 ML SYR IV PRN (06:45)
[2017-02-16] MEDS: NS IV 1000 ML 1,000 ML IV SCH ×2 (06:46→15:38)
[2017-02-16 06:47] VITALS: BP 145/80
--- NOTE | 2017-02-16 07:39 | Diagnostic Imaging Report ---
INDICATION: Chest pain. COMPARISON: 11/17/2016 FINDINGS: Single frontal view of the chest demonstrates normal heart size and pulmonary vascularity. Evaluation of lung villa demonstrates suggestion of nodular opacity in the lower right lung field measuring approximately 2 cm. This, however, is felt to be artifact and related to projection of a rib end or possible healed rib fracture. Metallic foreign bodies are also again noted. Lungs are otherwise clear. There is no large effusion or pneumothorax on either side. Bony structures show no acute abnormalities. IMPRESSION: 1. Nodular opacity in the lower right lung field is felt to be artifact and related to projection of rib end or healed rib fracture. 2. Otherwise, no acute cardiopulmonary process. Dictated by: Dictated on workstation # [id number]
[2017-02-16 08:00] VITALS: BP 162/81
--- NOTE | 2017-02-16 08:14 | Diagnostic Imaging Report ---
PROCEDURE: CT angiography of the chest with contrast. TECHNIQUE: Multiple contiguous axial images were obtained through the chest after uneventful bolus administration of intravenous contrast. Reconstructed CTA MIP acquisitions were also performed. INDICATION: Chest pain. COMPARISON: Chest radiograph from earlier same day. FINDINGS: There is no acute embolus to the first subsegmental division of the pulmonary arteries. Heart size is within normal limits. There is calcified aortic and coronary atherosclerosis. Thoracic aorta is otherwise normal in course and caliber. Note is made of aberrant course of the right subclavian artery. Bilateral hilar lymph nodes are slightly prominent. Largest on the right measures 1.3 x 1.6 cm and largest on the left measures approximately 1.1 x 1.8 cm (images 64 and 71, series 4). Prominent AP window. Mediastinal lymph node is also identified and measures 1.6 x 2 cm. No abnormal axillary adenopathy is identified. Evaluation of lung villa demonstrates scattered areas of patchy and confluent densities throughout the right upper, right middle, and right lower lobes. Few of these areas have a somewhat nodular appearance. Floor Layer micronodular density seen within the posterior margins of the right upper lobe and measures approximately 5 mm in diameter (image 42, series 4). There is also bilateral dependent posterior atelectasis. Small effusion is present on the left. No pneumothorax is seen on either side. There is some mild air trapping within the mid and upper lung villa consistent with background of COPD. Multiple metallic fragmented foreign bodies are seen within the anterior subcutaneous soft tissues of the right chest. Old healed right-sided rib fractures are also noted and likely correspond to prominent nodular appearing opacities on chest radiograph from earlier same day. No acute appearing bony abnormalities are identified. Included portions of the upper abdomen are unremarkable. IMPRESSION: 1. No evidence of acute pulmonary embolus through the first subsegmental division of the pulmonary arteries. 2. Scattered patchy and confluent infiltrate type opacities within the right upper, middle, and lower lobes. Pneumonia is favored. Followup of serial chest ray graft is recommended. 3. Two micronodular opacities are also seen on the right and may be on the basis of patient's underlying infectious process. Followup with CT chest after appropriate course of antibiotic therapy is recommended to exclude underlying neoplastic process. 3. Small left effusion. 4. Background of COPD. 5. Bilateral hilar and mediastinal adenopathy. This could be reactive and related to the above, although other lymphoproliferative or lymphoinvasive process cannot be excluded. Again, followup is recommended. 6. Other nonacute findings as described above. Dictated by: Dictated on workstation # [id number]
[2017-02-16] MEDS ORDERED: ASPI-999 PO (10:34)
[2017-02-16] MEDS ORDERED: GABA600T2 PO (10:34)
[2017-02-16] MEDS ORDERED: METO-272 PO (10:34)
[2017-02-16] MEDS ORDERED: INSU300I SQ (10:34)
[2017-02-16] MEDS ORDERED: AMLO5TAB2 PO (10:34)
[2017-02-16] MEDS ORDERED: COLC0.6T53 PO (10:34)
[2017-02-16] MEDS ORDERED: CELE-63 PO (10:34)
[2017-02-16] MEDS ORDERED: FLUR30CA13 PO (10:34)
[2017-02-16 12:04] VITALS: BP 163/81
--- NOTE | 2017-02-16 12:32 | Consultation-Cardiology ---
HPI-Cardiology Cardiology Consultation: Date of Consultation 02/16/17 Date of Admission 02-16-17 Attending Physician Christie Umanzor DO Admitting Physician Christie Umanzor DO Consulting Physician Emani Tracy HPI: Chief Complaint: Chest pain Mr. Gillette is a 61 year old male admitted to ICU 6 from the ED. He reports he was feeling good on Thursday when he went to bed, but when he woke up on Thursday morning and was feeling weak and tired. He states he "recalls hallucinating" and yelling for a nurse even though he was home alone. He does not recall how long this went on for. He states he felt better later in the day on Thursday. Then on Thursday morning he was having left shoulder pain, which he felt was d/t his shingles. He states he took a nitro and it may have helped a little. He reports then the discomfort moved from his shoulder to the left side of his chest, just below the nipple like and a bit lateral. The discomfort was localized. It was a sharp pain which was worse with inspiration. He states he then took another nitro and 4 baby ASA. Which helped the pain somewhat, but did not resolve it. He reports an occasional non-productive cough. He reports no further chest pain except with deep inspiration. He is reporting right hip pain. No c/o palpitations, syncope or near syncope. No c/o n/v/d. The chest pain in 48 hrs in duration, constant, mod to severe, worse with deep breathing, without radiation and localized to to the L lateral lower rib cage, never experienced before, associated with a gen feeling of being unwell Review of Systems-Cardiology Review of Systems Time Seen by Provider: 12:32 Constitutional: As described under HPI Eyes: No blurred vision, No drainage, No pain, No vision change Ears/Nose/Throat: No ear discharge, No ear pain, No nasal drainage, No ulcerations Respiratory: As described under HPI Cardiovascular: As described under HPI Gastrointestinal: No constipation, No diarrhea, No nausea, No vomiting, No stool coloration changes Genitourinary: No dysuria, No discharge, No frequency, No hematuria, No urgency Skin: No rash, No skin related problems, No ulcerations Psychiatric/Neurological: No anxiety, No depression, No focal weakness, No seizure, No syncope Hematologic: No bleeding abnormalities All Other Systems Reviewed Negative Unless Noted: Yes [facility]-E[facility]-Dztn[facility] Hx Patient Social History Alcohol Use: Denies Use Recreational Drug Use: No Smoking Status: Never a Smoker 2nd Hand Smoke Exposure: No Recent Foreign Travel: No Recent Infectious Disease Expo: No Hospitalization with Isolation: Denies Physical Abuse Screen: No Sexual Abuse: No Immunizations Up To Date Tetanus Booster (TDap): Unknown Date of Pneumonia Vaccine: Apr 27, 2014 Date of Influenza Vaccine: May 08, 2015 Past Medical History PMH As described under Assessment. Family Medical History Family Medical History: He reports his mother had CAD and HTN. He reports his father had HTN and a CVA. Family History: 19 FATHER Alcoholism Cancer Family history: Hypertension Hearing loss Stroke 19 MOTHER Cancer Chest pain Family history: Cardiovascular disease Family history: Hypertension Heart disease Malignant neoplasm of lung Myocardial infarction G8 SISTER Family history: Arthritis (grandmother) Family history: Diabetes mellitus Allergies and Home Medications Allergies Coded Allergies: carvedilol (Unverified Allergy, Unknown, 01/22/10) codeine (Unverified Allergy, Unknown, PATIENT HAS RECEIVED MORPHINE WITHOUT ISSUE, 06/08/15) Home Medications Amlodipine Besylate 5 Mg Tablet, 5 MG PO DAILY, (Reported) Aspirin 81 Mg Tab.chew, 81 MG PO DAILY, (Reported) Celecoxib 200 Mg Capsule, 200 MG PO BID, (Reported) Clonidine HCl 0.1 Mg Tablet, 0.1 MG PO HS, (Reported) Clopidogrel Bisulfate 75 Mg Tablet, 75 MG PO DAILY, (Reported) Colchicine 0.6 Mg Tablet, 0.6 MG PO BID PRN for GOUT PAIN, (Reported) Febuxostat 80 Mg Tablet, 80 MG PO DAILY, (Reported) Flurazepam HCl 30 Mg Capsule, 30 MG PO HS PRN for SLEEP, (Reported) Gabapentin 600 Mg Tablet, 600 MG PO HS, (Reported) Insulin Glargine,Hum.rec.anlog 300 Unit/1 Ml Insuln.pen, 85 UNITS SQ BID, ( Reported) Metoprolol Succinate 100 Mg Tab.er.24h, 100 MG PO BID, (Reported) TAKES ALONG WITH METOPROLOL SUCCINATE ER 50 MG Metoprolol Succinate 50 Mg Tab.er.24h, 50 MG PO DAILY, (Reported) TAKES ALONG WITH METOPROLOL SUCCINATE ER 100 MG Pantoprazole Sodium 40 Mg Tablet.dr, 40 MG PO BID, (Reported) Ramipril 5 Mg Capsule, 5 MG PO DAILY, (Reported) Physical Exam-Cardiology Physical Exam Vital Signs/I&O Vital Sign - Last 12Hours 02/16/17 02/16/17 02/16/17 02/16/17 06:24 06:38 06:47 06:59 Temp 98.0 98.9 Pulse 60 70 69 Resp 14 B/P (MAP) 145/80 Pulse Ox 95 O2 Delivery Nasal Cannula Nasal Cannula Nasal Cannula O2 Flow Rate 2.00 2.00 2.00 02/16/17 02/16/17 02/16/17 02/16/17 08:00 08:00 08:00 12:00 Temp 98.5 Pulse 74 Resp 16 B/P (MAP) 162/81 Pulse Ox 98 98 O2 Delivery Nasal Cannula Nasal Cannula Nasal Cannula Nasal Cannula O2 Flow Rate 2.00 2.00 2.00 2.00 02/16/17 02/16/17 02/16/17 02/16/17 12:04 13:00 14:52 16:00 Temp 97.9 Pulse 75 76 Resp 18 B/P (MAP) 163/81 Pulse Ox 99 O2 Delivery Nasal Cannula Nasal Cannula Nasal Cannula O2 Flow Rate 2.00 2.00 2.00 02/16/17 02/16/17 16:18 16:56 Temp 98.3 Pulse 83 Resp 16 B/P (MAP) 162/78 Pulse Ox 96 O2 Delivery Nasal Cannula Nasal Cannula O2 Flow Rate 2.00 2.00 Capillary Refill : Less Than 3 Seconds Constitutional: appears stated age, No apparent distress, well-developed, well- nourished HEENT: PERRL, No discharge, hearing is well preserved, oral hygience is good, No ulceration, No xanthelasmas are seen Neck: No carotid bruit, carotid pulses are 2 + bilaterally Respiratory: No accessory muscle use, No respiratory distress, chest expansion is symmetric, chest is bilaterally symmetric, other (diminished right side) Cardiovascular: regular rate-rhythm, No JVD, S1 and S2 Gastrointestinal: No tender, soft, round, audible bowel sounds, No spleenomegaly Extremities: No clubbing, No cyanosis, No significant edema Neurologic/Psychiatric: alert, oriented x 3, power is 5/5 both on sides Skin: No rash, No ulcerations, other Data Review Labs Laboratory Tests 02/16/17 03:30: White Blood Count 9.2, Red Blood Count 5.05, Hemoglobin 14.0, Hematocrit 41, Mean Corpuscular Volume 81, Mean Corpuscular Hemoglobin 28, Mean Corpuscular Hemoglobin Concent 34, Red Cell Distribution Width 14.8H, Platelet Count 278, Mean Platelet Volume 9.3, Neutrophils (%) (Auto) 62, Lymphocytes (%) (Auto) 25, Monocytes (%) (Auto) 7, Eosinophils (%) (Auto) 6, Basophils (%) (Auto) 0, Neutrophils # (Auto) 5.7, Lymphocytes # (Auto) 2.3, Monocytes # (Auto) 0.6, Eosinophils # (Auto) 0.5H, Basophils # (Auto) 0.0, Prothrombin Time 13.2, INR Comment 1.0, Activated Partial Thromboplast Time 31, Sodium Level 140, Potassium Level 3.4L, Chloride Level 106, Carbon Dioxide Level 24, Anion Gap 10 , Blood Urea Nitrogen 12, Creatinine 0.98, Estimat Glomerular Filtration Rate > 60, BUN/Creatinine Ratio 12, Glucose Level 118H, Calcium Level 9.6, Magnesium Level 2.0, Total Bilirubin 0.5, Aspartate Amino Transf (AST/SGOT) 14, Alanine Aminotransferase (ALT/SGPT) 13, Alkaline Phosphatase 30L, Myoglobin 45.3, Troponin I < 0.30, Total Protein 7.0, Albumin 3.7 02/16/17 09:20: Troponin I < 0.30 02/16/17 15:43: Glucometer 254H Radiology NAME: YVROSE GILLETTE [facility] REC#: [id number] PT STATUS: ADM Lauren : 1955 PHYSICIAN: KEI MAYA MD ADMIT DATE: 02/16/17/ICU Signed Date of Exam: 02/16/17 CT ANGIO CHEST W PROCEDURE: CT angiography of the chest with contrast. TECHNIQUE: Multiple contiguous axial images were obtained through the chest after uneventful bolus administration of intravenous contrast. Reconstructed CTA MIP acquisitions were also performed. INDICATION: Chest pain. COMPARISON: Chest radiograph from earlier same day. FINDINGS: There is no acute embolus to the first subsegmental division of the pulmonary arteries. Heart size is within normal limits. There is calcified aortic and coronary atherosclerosis. Thoracic aorta is otherwise normal in course and caliber. Note is made of aberrant course of the right subclavian artery. Bilateral hilar lymph nodes are slightly prominent. Largest on the right measures 1.3 x 1.6 cm and largest on the left measures approximately 1.1 x 1.8 cm (images 64 and 71, series 4). Prominent AP window. Mediastinal lymph node is also identified and measures 1.6 x 2 cm. No abnormal axillary adenopathy is identified. Evaluation of lung villa demonstrates scattered areas of patchy and confluent densities throughout the right upper, right middle, and right lower lobes. Few of these areas have a somewhat nodular appearance. Dry Plasterer micronodular density seen within the posterior margins of the right upper lobe and measures approximately 5 mm in diameter (image 42, series 4). There is also bilateral dependent posterior atelectasis. Small effusion is present on the left. No pneumothorax is seen on either side. There is some mild air trapping within the mid and upper lung villa consistent with background of COPD. Multiple metallic fragmented foreign bodies are seen within the anterior subcutaneous soft tissues of the right chest. Old healed right-sided rib fractures are also noted and likely correspond to prominent nodular appearing opacities on chest radiograph from earlier same day. No acute appearing bony abnormalities are identified. Included portions of the upper abdomen are unremarkable. IMPRESSION: 1. No evidence of acute pulmonary embolus through the first subsegmental division of the pulmonary arteries. 2. Scattered patchy and confluent infiltrate type opacities within the right upper, middle, and lower lobes. Pneumonia is favored. Followup of serial chest ray graft is recommended. 3. Two micronodular opacities are also seen on the right and may be on the basis of patient's underlying infectious process. Followup with CT chest after appropriate course of antibiotic therapy is recommended to exclude underlying neoplastic process. 3. Small left effusion. 4. Background of COPD. 5. Bilateral hilar and mediastinal adenopathy. This could be reactive and related to the above, although other lymphoproliferative or lymphoinvasive process cannot be excluded. Again, followup is recommended. 6. Other nonacute findings as described above. Dictated by: Dictated on workstation # [id number] Dict: 02/16/17 0752 Trans: 02/16/17 1129 Interpreted by: WEI AVILES Electronically signed by: WEI AVILES 02/16/17 1129 ECG Impression ECG Initial ECG Rhythm: Normal Sinus (unchanged from previous) A/P-Cardiology Assessment/Admission Diagnosis Pleuritic chest pain, likely pleuritis. No evidence of ACS Right upper, middle and lower lobe pneumonia - medical services managing Chronic intermittent chest discomfort, including stable angina - no evidence of ACS Labile hypertension. Hospitalization with uncontrolled hypertension and transient neurologic symptoms in early Sep 2015. No evidence of CVA on MRI of 09/10/[address] head of 09/09/15 Low TSH in Jul 2015, being followed by Dr Umanzor Chest and epigastric pain due to PUD, based on endoscopy of 06/08/[address] Minaya that showed multiple gastric and duodenal ulcers. Vague history of syncope without evidence of any significant arrhythmia or acute coronary syndrome CAD - Last cardiac cath was on 09/23/16: The mid left anterior descending artery is known to have overlapping Promus 3 x 12 mm and 2.25 x 16 mm stents with the overlap having been treated with Quantum 3 balloon previously (March 2014). These stents are patent. The left anterior descending artery has diffuse mod erate disease and the very terminal portion has severe disese that is not amenable to intervention. The left circumflex artery has diffuse moderate disease, most in the terminal small caliber branches. The right coronary artery is dominant and has 50% proximal and mid vessel stenoses, with FFR 0.94. There is a patent stent in the distal right coronary artery which is known to be Promus 2.5 x 18 mm stent. The distal posterolateral system of the right coronary artery has severe disease but the vessel is of small caliber and not amenable to intervention. Mild elevation of LVEDP; LVEF 60%; no significant MR CT angio of 02-16-17 .No evidence of acute pulmonary embolus through the first subsegmental division of the pulmonary arteries. Scattered patchy and confluent infiltrate type opacities within the right upper, middle, and lower lobes. Pneumonia is favored. Followup of serial chest ray graft is recommended. Two micronodular opacities are also seen on the right and may be on the basis of patient's underlying infectious process. Followup with CT chest after appropriate course of antibiotic therapy is recommended to exclude underlying neoplastic process. Small left effusion. Background of COPD. Bilateral hilar and mediastinal adenopathy. This could be reactive and related to the above, although other lymphoproliferative or lymphoinvasive process cannot be excluded. Anxiety Echo of 09/22/16 showed LVEF 65%, mod diastolic dysfunction, PASP 20 mmHg Maturity onset diabetes mellitus, being managed by Dr. Umanzor. Hyperlipidemia - intolerant to statin (muscle discomfort) Gen muscle discomfort/fibromyalgia Gout. Carotid arterial disease. CTA of carotids on 09/20/15 showed 50% prox R ICA and less than 50% L ICA bulb stenoses. Mild carotid art disease on carotid u/s of 06/23 Peripheral arterial disease. S/p bilateral leg artery interventions by Dr Layton in Jul and Aug 2014. No leg claudication since Multiple rib fractures per report of November 2016 d/t a non-syncopal fall Discussion and Recomendations Complex management issue. Non-specific chest discomfort with no evidence of ACS thus far. Cardiac cath of September 2016 showed stable coronary status. Continue anti-hypertensives, ASA, Plavix and PPI. Right upper, middle, and lower lobe pneumonia per CT of the chest which is being managed by medical services. Monitor lab closely. We would like to thank the medical services for this consult. Further recommendations will be based on his hospital course. This consult is being scribed by Ronaldo Navarrete APRN on behalf of Dr. Tracy after discussion regarding plan of care. Clinical Quality Measures AMI/AHF: ASA po Prior to arrival: Yes ([phone]) DVT/VTE Risk/Contraindication: Risk Factor Score Per Nursin RFS Level Per Nursing on Admit: 4+=Very High Physician Assessment Physician Assessment Lungs: good bilat air entry Cor: reg A&R * As documented in our note above that I updated at the time of this writing ( italics) * Will carry out echo to eval for any pericardial eff * I spoke with him in detail and answered his questions * There is no evidence of any ACS at this time * Further recs based on his hosp course * Continue to monitor labs closely BLADIMIR NAVARRETE Feb 16, 2017 12:32 EMANI TRACY MD [facility] Feb 16, 2017 17:08
--- NOTE | 2017-02-16 16:14 | History & Physicial ---
History of Present Illness History of Present Illness Reason for visit/HPI This is a 61 year old male with a known history of CAD who presented to the Emergency Dept with c/o left upper shoulder pain improved with 2 Nitroglycerine sublingual and 4 ASA 81mg at home. Pt states Thursday evening he was having hallucinations at home and "speaking to people who have ." Thursday evening pt states he began to have Lt shoulder pain; pt then took 1 Nitro; when pain was not relieved he took an additional 1 Nitroglycerine and 4 ASA 81mg with some pain relief. He then proceeded to call EMS and was transported to [facility] Emergency Dept. His EKG and troponin showed no elevation; WBC count normal. He was given 2 additional doses of Nitroglycerine in the emergency department which relieved his Lt upper shoulder pain. Pt also had c/o rt hip and back pain from a recent shingles outbreak. He was given Toradol IV which relieved this Rt hip and back pain. A CT angiogram of chest completed with results of scattered infiltrates on the right upper, middle, and lower lobes. Clinically, pt has no evidence of infectious process as evidenced by normal WBC count, afebrile, no cough, and no crackles upon auscultation. Due to pt history of CAD he will be admitted with Cardiology consult and repeat cardiac enzymes. Incentive spirometry ordered and will continue to monitor for signs of pneumonia. Date of Admission Feb 16, 2017 at 06:24 Time Seen by Provider: 16:01 I consulted on this patient on 02/16/17 16:01 Attending Physician Christie Umanzor DO Admitting Physician Christie Umanzor DO Consult Allergies and Home Medications Allergies Coded Allergies: carvedilol (Unverified Allergy, Unknown, 01/22/10) codeine (Unverified Allergy, Unknown, PATIENT HAS RECEIVED MORPHINE WITHOUT ISSUE, 06/08/15) Home Medications Amlodipine Besylate 5 Mg Tablet, 5 MG PO DAILY, (Reported) Aspirin 81 Mg Tab.chew, 81 MG PO DAILY, (Reported) Celecoxib 200 Mg Capsule, 200 MG PO BID, (Reported) Clonidine HCl 0.1 Mg Tablet, 0.1 MG PO HS, (Reported) Clopidogrel Bisulfate 75 Mg Tablet, 75 MG PO DAILY, (Reported) Colchicine 0.6 Mg Tablet, 0.6 MG PO BID PRN for GOUT PAIN, (Reported) Febuxostat 80 Mg Tablet, 80 MG PO DAILY, (Reported) Flurazepam HCl 30 Mg Capsule, 30 MG PO HS PRN for SLEEP, (Reported) Gabapentin 600 Mg Tablet, 600 MG PO HS, (Reported) Insulin Glargine,Hum.rec.anlog 300 Unit/1 Ml Insuln.pen, 85 UNITS SQ BID, ( Reported) Metoprolol Succinate 100 Mg Tab.er.24h, 100 MG PO BID, (Reported) TAKES ALONG WITH METOPROLOL SUCCINATE ER 50 MG Metoprolol Succinate 50 Mg Tab.er.24h, 50 MG PO DAILY, (Reported) TAKES ALONG WITH METOPROLOL SUCCINATE ER 100 MG Pantoprazole Sodium 40 Mg Tablet.dr, 40 MG PO BID, (Reported) Ramipril 5 Mg Capsule, 5 MG PO DAILY, (Reported) Past Ksvyukj-Pgdvsm-Piiguc Hx Patient Social History Alcohol Use: Denies Use Recreational Drug Use: No Smoking Status: Never a Smoker 2nd Hand Smoke Exposure: No Physical Abuse Screen: No Sexual Abuse: No Recent Foreign Travel: No Contact w/other who traveled: No Recent Hopitalizations: No Recent Infectious Disease Expo: No Immunizations Up To Date Tetanus Booster (TDap): Unknown Date of Pneumonia Vaccine: Apr 27, 2014 Date of Influenza Vaccine: May 08, 2015 Seasonal Allergies Seasonal Allergies: No Surgeries HX Surgeries: Yes Surgeries: Cardiac, Coronary Stent, Ear Surgery, Orthopedic, Vascular Surgery Respiratory Hx Respiratory Disorders: Yes Cardiovascular Hx Cardiovascular Disorders: Yes Cardiac Disorders: Coronary Artery Disease, High Cholesterol, Hypertension, Peripheral Vascular Neurological Hx Neurological Disorders: Yes (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) Neurological Disorders: Stroke, TIA Reproductive System Hx Reproductive Disorders: No Genitourinary Hx Genitourinary Disorders: Yes (STRESS INCONTINENCE AT TIMES) Gastrointestinal Hx Gastrointestinal Disorders: Yes Gastrointestinal Disorders: Ulcer Musculoskeletal Hx Musculoskeletal Disorders: Yes Musculoskeletal Disorders: Arthritis, Gout Endocrine Hx Endocrine Disorders: Yes Endocrine Disorders: Diabetes, Insulin dep HEENT HX ENT Disorders: Yes ([place] 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; 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) Loss of Vision: Denies Hearing Impairment: Hard of Hearing Cancer Hx Cancer: No Psychosocial Hx Psychiatric Problems: Yes Behavioral Health Disorders: Sleep Difficulties, Anxiety Integumentary HX Skin/Integumentary Disorder: No Blood Transfusions Hx Blood Disorders: No Adverse Reaction to a Blood Tr: No Reviewed Nursing Assessment Reviewed/Agree w Nursing PMH: Yes Family Medical History Significant Family History: No Pertinent Family Hx Family Hx: Alcoholism 19 FATHER Cancer 19 FATHER 19 MOTHER Chest pain 19 MOTHER Family history: Arthritis (grandmother) G8 SISTER Family history: Cardiovascular disease 19 MOTHER Family history: Diabetes mellitus G8 SISTER Family history: Hypertension 19 FATHER 19 MOTHER Hearing loss 19 FATHER Heart disease 19 MOTHER Malignant neoplasm of lung 19 MOTHER Myocardial infarction 19 MOTHER Stroke 19 FATHER Constitutional: weakness EENTM: no symptoms reported Respiratory: no symptoms reported Cardiovascular: chest pain (Lt shoulder/upper arm) Gastrointestinal: No RUQ, No LUQ, No RLQ, No LLQ, No no symptoms reported, No see HPI, No abdominal pain, No constipation, No diarrhea, No dysphagia, No hematemesis, No heartburn, No jaundice, No loss of appetite, No melena, No nausea, No vomiting, No other Musculoskeletal: back pain (Rt lower), joint pain (Rt hip) Skin: No no symptoms reported, No see HPI, No change in color, No change in hair/nails, No dryness, No hx of skin cancer, No lesions, No lumps, No pruritus , No rash, No other Psychiatric/Neurological: Weakness Physical Exam Vital Signs Vital Sign - Last 12Hours Capillary Refill : Less Than 3 Seconds General Appearance: No Apparent Distress Eyes: Bilateral Eye PERRL HEENT: PERRL/EOMI Neck: Full Range of Motion Respiratory: Lungs Clear, Normal Breath Sounds, No Respiratory Distress Cardiovascular: Regular Rate, Rhythm, Systolic Murmur, Gallop/S4 Gastrointestinal: Normal Bowel Sounds, Non Tender Rectal: No Normal Exam, No Normal Rectal Tone, No Heme Negative Stool, No Deferred, No Black Stool, No Blood Streaked Stool, No Decreased Tone, No Heme Positive Stool, No Hemorrhoids, No Mass, No Tenderness, No Other Genital/Rectal: No Normal Genital Exam, No Normal Rectal Exam, No Normal Rectal Tone, No Normal Vaginal Exam, No Heme Negative Stool, No Blood at Uretheral Meatus, No Decreased Rectal Tone, No Heme Positive Stool, No Tenderness, No Other Back: Normal Inspection Extremity: No Normal Capillary Refill, No Normal Inspection, No Normal Range of Motion, No Non Tender, No No Calf Tenderness, No No Pedal Edema, No Calf Tenderness, No Inflammation, No Pedal Edema, No Pelvis Stable, No Slow Capillary Refill, No Swelling, No Other Neurologic/Psychiatric: Alert, Oriented x3 Skin: Normal Color, Warm/Dry Comments CT Scan of the [chest] was obtained. The study was read by the radiologist Laboratory Tests 02/16/17 03:30: White Blood Count 9.2, Red Blood Count 5.05, Hemoglobin 14.0, Hematocrit 41, Mean Corpuscular Volume 81, Mean Corpuscular Hemoglobin 28, Mean Corpuscular Hemoglobin Concent 34, Red Cell Distribution Width 14.8H, Platelet Count 278, Mean Platelet Volume 9.3, Neutrophils (%) (Auto) 62, Lymphocytes (%) (Auto) 25, Monocytes (%) (Auto) 7, Eosinophils (%) (Auto) 6, Basophils (%) (Auto) 0, Neutrophils # (Auto) 5.7, Lymphocytes # (Auto) 2.3, Monocytes # (Auto) 0.6, Eosinophils # (Auto) 0.5H, Basophils # (Auto) 0.0, Prothrombin Time 13.2, INR Comment 1.0, Activated Partial Thromboplast Time 31, Sodium Level 140, Potassium Level 3.4L, Chloride Level 106, Carbon Dioxide Level 24, Anion Gap 10 , Blood Urea Nitrogen 12, Creatinine 0.98, Estimat Glomerular Filtration Rate > 60, BUN/Creatinine Ratio 12, Glucose Level 118H, Calcium Level 9.6, Magnesium Level 2.0, Total Bilirubin 0.5, Aspartate Amino Transf (AST/SGOT) 14, Alanine Aminotransferase (ALT/SGPT) 13, Alkaline Phosphatase 30L, Myoglobin 45.3, Troponin I < 0.30, Total Protein 7.0, Albumin 3.7 02/16/17 09:20: Troponin I < 0.30 02/16/17 15:43: Glucometer 254H Assessment/Plan Assessment and Plan 1. Lt shoulder and upper arm pain relieved by Nitroglycerin- admit to cardiac step-down on telemetry. Repeat cardiac enzymes and EKG. Consult Cardiology. 2. Low back and Rt hip pain- Toradol given and currently pain free. 3. Infiltrates on CT chest with no evidence of active pneumonia- Incentive spirometry and monitor temperature, repeat CBC and CXR. Monitor for signs of infection. 4. HTN-Continue home medication Metoprolol and increase to 150mg BID 5. DMII insulin requiring with hyperglycemia-Levemir 40units HS and Sliding scale insulin per protocol. Problems: Clinical Quality Measures AMI/AHF: ASA po Prior to arrival: Yes (324) DVT/VTE Risk/Contraindication: Risk Factor Score Per Nursin RFS Level Per Nursing on Admit: 4+=Very High CHRISTIE UMANZOR DO Feb 16, 2017 16:13
[2017-02-16 16:18] VITALS: BP 162/78
[2017-02-16] MEDS: inSUlin (REGULAR) HUMAN 1 UNIT/0.01 ML (CHARGE PER UNIT) SC SCH ×2 (17:11→21:38)
[2017-02-16] MEDS ORDERED: HYDROcodone/APAP 5 MG/325 MG (LORTAB) TAB PO PRN (18:45)
[2017-02-16] MEDS ORDERED: PATIENT MAY USE OWN MED,SINGLE MED PO SCH (19:00)
[2017-02-16 20:00] VITALS: BP 159/79
[2017-02-16] MEDS: PANTOPRAZOLE 40 MG (PROTONIX) TAB PO SCH (20:47)
[2017-02-16] MEDS: CELECOXIB 100 MG (CeleBREX) CAP PO SCH (20:48)
[2017-02-16] MEDS: meTOproloL SUCCINATE 50 MG (TOPROL XL) TAB PO SCH (20:48)
[2017-02-16] MEDS: meTOprolol SUCCINATE 100 MG (TOPROL XL) TAB PO SCH (20:48)
[2017-02-16] MEDS ORDERED: NON-FORMULARY MEDICATION 1 EA EA (Celecoxib 200 MG) PO SCH (21:00)
[2017-02-16] MEDS ORDERED: GABAPENTIN 600 MG (NEURONTIN) TAB PO SCH (21:00)
[2017-02-16] MEDS ORDERED: cloNIDine 0.1 MG (CATAPRES) TAB PO SCH (21:00)
[2017-02-16] MEDS ORDERED: inSUlin DETERMIR 1 UNIT/0.01 ML (LEVEMIR) CHARGE PER UNIT SQ SCH (21:00)
[2017-02-17] VITALS: BP 153/78
[2017-02-17 04:00] VITALS: BP 154/88
[2017-02-17 04:28] LABS: BASOPHILS % (AUTO) 0 % (0-10); EOSINOPHILS # (AUTO) 0.6 10^3/uL (0.0-0.3); EOSINOPHILS % (AUTO) 7 % (0-10); LYMPHOCYTES # (AUTO) 2.2 X 10^3 (1.0-4.0); LYMPHOCYTES % (AUTO) 23 % (12-44); MEAN CORPUSCULAR HEMOGLOBIN 27 PG (25-34); MEAN CORPUSCULAR HGB CONC 34 G/DL (32-36); MEAN CORPUSCULAR VOLUME 81 FL (80-99); MEAN PLATELET VOLUME 9.7 FL (7.4-10.4); MONOCYTES # (AUTO) 0.5 X 10^3 (0.0-1.0); MONOCYTES % (AUTO) 6 % (0-12); NEUTROPHILS # (AUTO) 6.1 X 10^3 (1.8-7.8); NEUTROPHILS % (AUTO) 64 % (42-75); PLATELET COUNT 255 10^3/uL (130-400); RED BLOOD COUNT 5.59 10^6/uL (4.35-5.85); RED CELL DISTRIBUTION WIDTH 14.8 % (10.0-14.5); WHITE BLOOD COUNT 9.5 10^3/uL (4.3-11.0)
[2017-02-17 05:09] LABS: ALANINE AMINOTRANSFERASE 14 U/L (0-55); ANION GAP 13 MMOL/L (5-14); ASPARTATE AMINO TRANSFERASE 16 U/L (5-34); BILIRUBIN,TOTAL 0.5 MG/DL (0.1-1.0); BLOOD UREA NITROGEN 13 MG/DL (7-18); BUN/CREATININE RATIO 12; CALCIUM 9.5 MG/DL (8.5-10.1); CARBON DIOXIDE 20 MMOL/L (21-32); CHLORIDE 106 MMOL/L (98-107); CHOLESTEROL 148 MG/DL (< 200); CREATININE SERUM 1.08 MG/DL (0.60-1.30); DIRECT LDL 92 MG/DL (1-129); GFR ESTIMATED > 60; GLUCOSE 211 MG/DL (70-105); MAGNESIUM 2.4 MG/DL (1.8-2.4); POTASSIUM 3.9 MMOL/L (3.6-5.0); SODIUM 139 MMOL/L (135-145); TOTAL PROTEIN 7.2 G/DL (6.4-8.2); TRIGLYCERIDES 137 MG/DL (<150); VLDL CHOLESTEROL 27 MG/DL (5-40)
[2017-02-17] MEDS: NS IV 1000 ML 1,000 ML IV SCH (05:20)
[2017-02-17] MEDS: inSUlin (REGULAR) HUMAN 1 UNIT/0.01 ML (CHARGE PER UNIT) SC SCH ×2 (06:09→12:36)
[2017-02-17] MEDS: PANTOPRAZOLE 40 MG (PROTONIX) TAB PO SCH (06:09)
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
[2017-02-17 08:00] VITALS: BP 162/82
[2017-02-17] MEDS ORDERED: ASPIRIN 81 MG CHEW (CHILDREN'S ASA) PO SCH (09:00)
[2017-02-17] MEDS ORDERED: meTOproloL SUCCINATE 50 MG (TOPROL XL) TAB PO SCH (09:00)
[2017-02-17] MEDS ORDERED: ULORIC 80 MG PO SCH (09:00)
[2017-02-17] MEDS ORDERED: CLOPIDOGREL 75 MG (PLAVIX) TABLET PO SCH (09:00)
[2017-02-17] MEDS ORDERED: RAMIPRIL 5 MG (ALTACE) CAP PO SCH (09:00)
[2017-02-17] MEDS ORDERED: amLODIPine 5 MG (NORVASC) TAB PO SCH (09:00)
--- NOTE | 2017-02-17 10:22 | Progress Note-Cardiology ---
Cardiology SOAP Progress Note Subjective: Denies c/o CP, SOB, palpitations, syncope or near syncope. States he feels better today. He states his pleuritic chest pain has resolved nearly completely Objective: I&O/Vital Signs Vital Sign - Last 12Hours 02/17/17 02/17/17 02/17/17 02/17/17 04:00 04:00 07:00 08:00 Temp 96.9 98.0 Pulse 66 70 67 Resp 14 22 B/P (MAP) 154/88 162/82 Pulse Ox 98 99 O2 Delivery Nasal Cannula Nasal Cannula Room Air O2 Flow Rate 2.00 2.00 02/17/17 02/17/17 02/17/17 02/17/17 08:00 09:00 12:00 12:00 Temp 97.6 Pulse 77 Resp 16 B/P (MAP) 158/81 Pulse Ox 96 O2 Delivery Nasal Cannula Room Air Nasal Cannula Room Air O2 Flow Rate 2.00 2.00 Intake and Output 02/17/17 00:00 Intake Total 1390 ml Output Total 1250 ml Balance 140 ml Weight (Pounds): 186 Weight (Ounces): 6.0 Weight (Calculated Kilograms): 84.127574 Constitutional: appears stated age, No apparent distress, well-developed, well- nourished Respiratory: No accessory muscle use, No respiratory distress, chest expansion is symmetric, chest is bilaterally symmetric, other (diminished right side) Cardiovascular: regular rate-rhythm, No JVD, S1 and S2 Gastrointestional: No tender, soft, round, audible bowel sounds, No spleenomegaly Extremities: No clubbing, No cyanosis, No significant edema Neurologic/Psychiatric: alert, oriented x 3, power is 5/5 both on sides Skin: No rash, No ulcerations Results/Procedures: Labs Laboratory Tests 02/16/17 15:43: Glucometer 254H 02/16/17 21:30: Glucometer 235H 02/17/17 03:39: White Blood Count 9.5, Red Blood Count 5.59, Hemoglobin 15.2, Hematocrit 45, Mean Corpuscular Volume 81, Mean Corpuscular Hemoglobin 27, Mean Corpuscular Hemoglobin Concent 34, Red Cell Distribution Width 14.8H, Platelet Count 255, Mean Platelet Volume 9.7, Neutrophils (%) (Auto) 64, Lymphocytes (%) (Auto) 23, Monocytes (%) (Auto) 6, Eosinophils (%) (Auto) 7, Basophils (%) (Auto) 0, Neutrophils # (Auto) 6.1, Lymphocytes # (Auto) 2.2, Monocytes # (Auto) 0.5, Eosinophils # (Auto) 0.6H, Basophils # (Auto) 0.0, Sodium Level 139, Potassium Level 3.9, Chloride Level 106, Carbon Dioxide Level 20L, Anion Gap 13, Blood Urea Nitrogen 13, Creatinine 1.08, Estimat Glomerular Filtration Rate > 60, BUN/ Creatinine Ratio 12, Glucose Level 211H, Calcium Level 9.5, Magnesium Level 2.4 , Total Bilirubin 0.5, Aspartate Amino Transf (AST/SGOT) 16, Alanine Aminotransferase (ALT/SGPT) 14, Alkaline Phosphatase 40, Total Protein 7.2, Albumin 4.0, Triglycerides Level 137, Cholesterol Level 148, LDL Cholesterol Direct 92, VLDL Cholesterol 27, HDL Cholesterol 32L 02/17/17 12:31: Glucometer 207H A/P: Assessment: Pleuritic chest pain, likely pleuritis. No evidence of ACS. This is much improved today Right upper, middle and lower lobe pneumonia - medical services managing Chronic intermittent chest discomfort, including stable angina - no evidence of ACS Labile hypertension. Hospitalization with uncontrolled hypertension and transient neurologic symptoms in early Sep 2015. No evidence of CVA on MRI of 09/10/[address] head of 09/09/15 Low TSH in Jul 2015, being followed by Dr Umanzor Chest and epigastric pain due to PUD, based on endoscopy of 06/08/[address] Minaya that showed multiple gastric and duodenal ulcers. Vague history of syncope without evidence of any significant arrhythmia or acute coronary syndrome CAD - Last cardiac cath was on 09/23/16: The mid left anterior descending artery is known to have overlapping Promus 3 x 12 mm and 2.25 x 16 mm stents with the overlap having been treated with Quantum 3 balloon previously (March 2014). These stents are patent. The left anterior descending artery has diffuse mod erate disease and the very terminal portion has severe disese that is not amenable to intervention. The left circumflex artery has diffuse moderate disease, most in the terminal small caliber branches. The right coronary artery is dominant and has 50% proximal and mid vessel stenoses, with FFR 0.94. There is a patent stent in the distal right coronary artery which is known to be Promus 2.5 x 18 mm stent. The distal posterolateral system of the right coronary artery has severe disease but the vessel is of small caliber and not amenable to intervention. Mild elevation of LVEDP; LVEF 60%; no significant MR CT angio of 02-16-17 .No evidence of acute pulmonary embolus through the first subsegmental division of the pulmonary arteries. Scattered patchy and confluent infiltrate type opacities within the right upper, middle, and lower lobes. Pneumonia is favored. Followup of serial chest ray graft is recommended. Two micronodular opacities are also seen on the right and may be on the basis of patient's underlying infectious process. Followup with CT chest after appropriate course of antibiotic therapy is recommended to exclude underlying neoplastic process. Small left effusion. Background of COPD. Bilateral hilar and mediastinal adenopathy. This could be reactive and related to the above, although other lymphoproliferative or lymphoinvasive process cannot be excluded. Anxiety Echo of 09/22/16 showed LVEF 65%, mod diastolic dysfunction, PASP 20 mmHg Maturity onset diabetes mellitus, being managed by Dr. Umanzor. Hyperlipidemia - intolerant to statin (muscle discomfort) Gen muscle discomfort/fibromyalgia Gout. Carotid arterial disease. CTA of carotids on 09/20/15 showed 50% prox R ICA and less than 50% L ICA bulb stenoses. Mild carotid art disease on carotid u/s of 06/23 Peripheral arterial disease. S/p bilateral leg artery interventions by Dr Layton in Jul and Aug 2014. No leg claudication since Multiple rib fractures per report of November 2016 d/t a non-syncopal fall Plan: No evidence of ACS No c/o CP at this time Continue current medication regimen Pneumonia being managed by medical services Monitor lab There has been clinical improvement. I spoke with him and answered questions Echo today or as an outpatient Outpatient cardiac f/u advised Advised compliance with his cardiac regimen Physician Assessment Physician Assessment Lungs: clear Cor: reg A&R * As documented in our note above that I updated at the time of this writing ( italics) Clinical Quality Measures AMI/AHF: ASA po Prior to arrival: Yes (324) BLADIMIR MCLAIN BREAST SURGEON Feb 17, 2017 10:22 RANJAN CABRERA MD FACP [facility] Feb 17, 2017 14:16
[2017-02-17] MEDS: meTOprolol SUCCINATE 100 MG (TOPROL XL) TAB PO SCH (10:23)
[2017-02-17] MEDS: CELECOXIB 100 MG (CeleBREX) CAP PO SCH (10:23)
[2017-02-17] MEDS: meTOproloL SUCCINATE 50 MG (TOPROL XL) TAB PO SCH (10:23)
[2017-02-17 12:00] VITALS: BP 158/81
--- NOTE | 2017-02-17 12:28 | Discharge Inst-Simple/Standard ---
Discharge Inst-Standard Patient Instructions/Follow Up Plan of Care/Instructions/FU: Has pending appointment in 1 week Activity as Tolerated: Yes Discharge Diet: ADA Diet, Cardiac Diet BENJAMIN LOBO DO Feb 17, 2017 12:28 pm
[2017-02-17 13:15] VITALS: BP 158/81
--- NOTE | 2017-02-17 19:37 | Discharge Summary ---
Diagnosis/Chief Complaint Date of Admission Feb 16, 2017 at 6:24 am Date of Discharge Feb 17, 2017 at 6:10 pm Discharge Date: Feb 17, 2017 Admission Diagnosis Admission Diagnosis 1. Lt shoulder and upper arm pain relieved by Nitroglycerin- admit to cardiac step-down on telemetry. Repeat cardiac enzymes and EKG. Consult Cardiology. 2. Low back and Rt hip pain- Toradol given and currently pain free. 3. Infiltrates on CT chest with no evidence of active pneumonia- Incentive spirometry and monitor temperature, repeat CBC and CXR. Monitor for signs of infection. 4. HTN-Continue home medication Metoprolol and increase to 150mg BID 5. DMII insulin requiring with hyperglycemia-Levemir 40units HS and Sliding scale insulin per protocol. Discharge Diagnosis 1. Lt shoulder and upper arm pain--musculoskeletal in etiology 2. Low back and Rt hip pain--due to lumbar degenerative disc disease as well as postherpetic neuralgia--stable 3. Infiltrates on CT chest with no evidence of active pneumonia or infectious process--likely atelectesis from recent rib fractures to right side 4. HTN-Continue home medication Metoprolol and increase to 150mg BID 5. DMII insulin requiring with hyperglycemia--stable Reason Hospital Visit This is a 61 year old male with a known history of CAD who presented to the Emergency Dept with c/o left upper shoulder pain improved with 2 Nitroglycerine sublingual and 4 ASA 81mg at home. Pt states Thursday evening he was having hallucinations at home and "speaking to people who have ." Thursday evening pt states he began to have Lt shoulder pain; pt then took 1 Nitro; when pain was not relieved he took an additional 1 Nitroglycerine and 4 ASA 81mg with some pain relief. He then proceeded to call EMS and was transported to [facility] Emergency Dept. His EKG and troponin showed no elevation; WBC count normal. He was given 2 additional doses of Nitroglycerine in the emergency department which relieved his Lt upper shoulder pain. Pt also had c/o rt hip and back pain from a recent shingles outbreak. He was given Toradol IV which relieved this Rt hip and back pain. A CT angiogram of chest completed with results of scattered infiltrates on the right upper, middle, and lower lobes. Clinically, pt has no evidence of infectious process as evidenced by normal WBC count, afebrile, no cough, and no crackles upon auscultation. Due to pt history of CAD he will be admitted with Cardiology consult and repeat cardiac enzymes. Incentive spirometry ordered and will continue to monitor for signs of pneumonia. Discharge Summary Hospital Course Hospital Course This is a 61 year old male with a known history of CAD who presented to the Emergency Dept with c/o left upper shoulder pain improved with 2 Nitroglycerine sublingual and 4 ASA 81mg at home. The patients symptoms started Thursday evening with hallucinations at home and "speaking to people who have ." Thursday evening, he began to have Lt shoulder pain; pt then took 1 Nitro; when pain was not relieved he took an additional 1 Nitroglycerine and 4 ASA 81mg with some pain relief. He then proceeded to call EMS and was transported to [facility] Emergency Dept. His EKG and troponin showed no elevation; WBC count normal. He was given 2 additional doses of Nitroglycerine in the emergency department which relieved his Lt upper shoulder pain. Pt also had c/o rt hip and back pain from a recent shingles outbreak. He was given Toradol IV which relieved this Rt hip and back pain. A CT angiogram of chest was completed with results of scattered infiltrates on the right upper, middle, and lower lobes. Clinically, pt has no evidence of infectious process as evidenced by normal WBC count, afebrile, no cough, and no crackles upon auscultation. Due to pt history of CAD he was admitted to cardiac stepdown ont telemetry with Cardiology consult and repeat cardiac enzymes. Incentive spirometry was ordered due to his history of recent rib fractures but no antibiotics were started as the patient showed no signs of active infection. His repeat cardiac enzymes were negative and cardiology felt that his pain was musculoskeletal in nature and noncardiac. The morning of discharge, he remains afebrile without cough and still with a normal WBC count. He has had no further pain to his left upper arm and shoulder and would like to go home. He was instructed to contact my office or return to the emergency room if he has any signs of infection. Otherwise, he will followup with me in my office in 1 week. Labs Laboratory Tests 02/16/17 03:30: Red Cell Distribution Width 14.8H, Eosinophils # (Auto) 0.5H, Potassium Level 3.4L, Glucose Level 118H, Alkaline Phosphatase 30L 02/16/17 09:20: 02/16/17 15:43: Glucometer 254H 02/16/17 21:30: Glucometer 235H 02/17/17 03:39: Red Cell Distribution Width 14.8H, Eosinophils # (Auto) 0.6H, Carbon Dioxide Level 20L, Glucose Level 211H, HDL Cholesterol 32L 02/17/17 12:31: Glucometer 207H Procedures None. Discharge Physical Examination Allergies: Coded Allergies: carvedilol (Unverified Allergy, Unknown, 01/22/10) codeine (Unverified Allergy, Unknown, PATIENT HAS RECEIVED MORPHINE WITHOUT ISSUE, 06/08/15) Vitals & I&Os Vital Signs Date Time Temp Pulse Resp B/P (MAP) Pulse Ox O2 Delivery O2 Flow Rate FiO2 02/17/17 13:15 74 16 158/81 OxyMask 02/17/17 12:00 97.6 96 02/17/17 12:00 2.00 General Appearance: Alert, Oriented X3, Cooperative, No Acute Distress Respiratory: Clear to Auscultation, Normal Air Movement Cardiovascular: Regular Rate Abdominal: Normal Bowel Sounds, Soft, No Tenderness Extremities: No Clubbing, No Cyanosis, No Edema Skin: No Rashes Psych/Mental Status: Mental Status NL Discharge Home Medications Reviewed and agree with Discharge Medication list on patient's Discharge Instruction sheet Instructions to Patient/Family Please see electonic discharge instructions given to patient. Clinical Quality Measures AMI/AHF: ASA po Prior to arrival: Yes (324) DVT/VTE Risk/Contraindication: Risk Factor Score Per Nursin RFS Level Per Nursing on Admit: 4+=Very High BENJAMIN LOBO DO Feb 17, 2017 7:37 pm
== END 2017-02-17 12:25 | disposition home or self-care (01) ==
LOC: EDUNIT# 03:19 → ER 03:20 → UNDOADMOB 06:24 → ICU 06:24 → UNDODISOB 02-17 18:10
PROVIDERS: ADMIT Family Medicine; ATTEND Family Medicine
DX: M79.622 Pain in left upper arm (principal); M51.36 Other intervertebral disc degeneration, lumbar region; M25.551 Pain in right hip; B02.29 Other postherpetic nervous system involvement; R91.8 Other nonspecific abnormal finding of lung field; I10 Essential (primary) hypertension; E11.51 Type 2 diabetes mellitus with diabetic peripheral angiopathy without gangrene; I25.10 Atherosclerotic heart disease of native coronary artery without angina pectoris; F41.9 Anxiety disorder, unspecified; E78.5 Hyperlipidemia, unspecified; M10.9 Gout, unspecified; I65.23 Occlusion and stenosis of bilateral carotid arteries; I73.9 Peripheral vascular disease, unspecified; E11.65 Type 2 diabetes mellitus with hyperglycemia; Z95.5 Presence of coronary angioplasty implant and graft
CPT/HCPCS: 36415; 71010; 71020; 71275; 80053; 80061; 82962; 83735; 83874; 84484; 85025; 85610; 85730; 93005; 93041; 93306; 94664; 99211; G0378

== ENCOUNTER → 2017-03-30 | Outpatient (CLI) | payer BC, OTHER ==
[~2017-03-30] MED LIST changes: +CELE-63 PO; +COLC0.6T53 PO; +FLUR30CA13 PO; +GABA600T2 PO; +INSU300I SQ; -METO-274 PO; +METO-370 PO; +METO-395 PO
== END ==
LOC: RT 13:11
PROVIDERS: ATTEND Surgery
DX: Z02.71 Encounter for disability determination (principal)
CPT/HCPCS: 94060

== ENCOUNTER → 2017-11-20 | Outpatient (CLI) | payer OTHER ==
[~2017-11-20] MED LIST changes: -HYDR-3812 PO
--- NOTE | 2017-11-20 13:34 | Diagnostic Imaging Report ---
INDICATION: Bilateral hand pain. Disability workup. FINDINGS: RIGHT: There is diffuse loss of joint space with hypertrophic bony changes and erosion of the articulating surfaces throughout the DIP joints of all digits. The PIP joints show narrowing with mild erosive changes. The MP joints are well preserved. There is rather advanced degenerative change of the first metacarpocarpal joint. Radiocarpal joint shows minimal degenerative change. There are no fractures. There is a single small metallic foreign body overlying the dorsum of the distal aspect of the proximal phalanx of the second digit. LEFT: There is advanced arthritic disease with involvement of the DIP and PIP joints. There is marked bony erosion with hypertrophic bony changes. There is considerable bony destruction of the PIP joint of the fifth digit. There is fusion of the PIP joint of the second digit. The MP joints are well preserved. The first MC joint shows mild arthritic change. Radiocarpal joint shows uqbj-qe-dgyaqtyi degenerative changes. There is considerable metallic debris overlying the proximal soft tissues of the third, fourth, and fifth proximal phalanges. IMPRESSION: 1. 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 There is fusion of the second PIP joint and marked bony destruction of the fifth PIP joint. Metallic artifact overlying the proximal phalanges of the third, fourth, and fifth digits. 2. Right hand: Osteoarthritic changes, most severe in the DIP joints throughout the right hand. Moderate degenerative change in the PIP joints with luuqkjbz-pq-mkaabk arthritic change in the first MP joint. Dictated by: Dictated on workstation # [id number]
== END ==
LOC: RAD 11:09
PROVIDERS: ATTEND Neuromusculoskeletal Medicine, Sports Medicine
DX: Z02.71 Encounter for disability determination (principal); M19.041 Primary osteoarthritis, right hand; M19.042 Primary osteoarthritis, left hand; Z98.890 Other specified postprocedural states

== ENCOUNTER 2018-03-23 07:11 | Day surgery (SDC) | payer SELFPAY ==
[2018-03-23] VITALS (15 sets, daily range): BP systolic 98–182; BP diastolic 40–83
[~2018-03-23] VITALS: Ht 172.7 cm; Wt 89.8 kg
[~2018-03-23 07:11] MED LIST changes: +METF10002 PO
[2018-03-23] MEDS ORDERED: HEParin (CATH LAB) 2,000 ML IV ONE (07:18)
[2018-03-23] MEDS ORDERED: LIDOCAINE 1% INJ 20 ML 20 ML VIAL ONE (07:18)
[2018-03-23] MEDS ORDERED: NS IV 1000 ML 1,000 ML ONE (07:18)
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
--- OUTSIDE RECORDS SUMMARY | 2018-03-23 07:19 | XMS REPORT ---
Author Author ELIAS DOWNING Organization [facility] Address [address] [place] [address] Care Team Providers Care Sex Therapist Name Role Phone ELIAS DOWNING Unavailable PROBLEMS Type Condition ICD9-CM Code CMG11-RV Code Onset Dates Condition Status SNOMED Code Problem Type 2 diabetes mellitus without complications E11.9 Active 652173937 Problem Chronic gout of multiple sites, unspecified cause M1A.09X0 Active 86420029 Problem Coronary artery disease involving [place] coronary artery of [place] heart without angina pectoris I25.10 Active 1965071403013 Problem Essential hypertension I10 Active 24765441 Problem PVD (peripheral vascular disease) I73.9 Active 095198963 Problem Anxiety F41.9 Active 29773095 Problem half-way current use of insulin Z79.4 Active 360682101 Problem Arm paresthesia, left R20.2 Active 69430052 Problem Systemic lupus erythematosus with other organ involvement, unspecified SLE type M32.19 Active 76999971 Problem Hypertension, benign I10 Active 25719596 Problem Post herpetic neuralgia B02.29 Active 7696167 Problem Raynaud''s phenomenon without gangrene I73.00 Active 901207993 Problem Arthritis M19.90 Active 3154421 ALLERGIES No Information ENCOUNTERS Encounter Location Date Diagnosis [facility] [id number] [address]- [address] Apr, [facility] [address] [address]- 9103 Feb, [facility] [id number] [place] [address] 88787- 9995 Feb, [facility] [id number] [address]- 3180 Feb, Arm paresthesia, left R20.2 [facility] [id number] [address]- 7995 Feb, [facility] [id number] [place] [address] 13455- 5154 Dec, Essential hypertension I10 and Type 2 diabetes mellitus without complications E11.9 [facility] [id number] [place] [address] 99463- 1745 Nov, [facility] [address] [address]- 7071 Nov, [facility] [id number] [place] [address] 24711- 0026 Oct, Type 2 diabetes mellitus without complications E11.9 ; Arthritis M19.90 and Systemic lupus erythematosus with other organ involvement, unspecified SLE type M32.19 [place] [id number] [place] [address] 67505- 3307 Oct, [facility] [id number] [place] [address] 96423- 5881 Oct, Systemic lupus erythematosus with other organ involvement, unspecified SLE type M32.19 [place] [id number] [place] [address] 92983- 4471 Sep, [facility] [id number] [place] [address] 58847- 2528 Sep, Type 2 diabetes mellitus without complications E11.9 ; Anxiety F41.9 ; Dysuria R30.0 and Hypertension, benign I10 [facility] [address] [place] [address] 85578- 4973 Sep, Type 2 diabetes mellitus without complications E11.9 [facility] [id number] [place] [address] 14769- 1135 Sep, Systemic lupus erythematosus with other organ involvement, unspecified SLE type M32.19 [facility] [address] [place] [address] 05850- 4980 Sep, Post herpetic neuralgia B02.29 [place] [address] [address]- 9132 08 Sep, 2017 Raynaud''s phenomenon without gangrene I73.00 [facility] [address] [address]- 8683 03 Sep, 2017 [facility] [address] [place] [address] 40074- 4648 Aug, [facility] [id number] [place] [address] 14225- 0076 Aug, Type 2 diabetes mellitus without complications E11.9 [facility] [id number] [place] [address] 59766- 0765 19 Aug, 2017 [facility] [id number] [place] [address] 47791- 8653 18 Aug, 2017 [facility] [id number] [place] [address] 75520- 1142 14 Aug, 2017 Type 2 diabetes mellitus without complications E11.9 [facility] [address] [address]- 8641 14 Aug, 2017 Systemic lupus erythematosus with other organ involvement, unspecified SLE type M32.19 [facility] [address] [address]- 0012 05 Aug, 2017 [facility] [address] [address]- 1542 Jul, [facility] [address] [address]- 5330 16 Jul, 2017 Raynaud''s phenomenon without gangrene I73.00 [facility] [address] [place] [address] 61976- 8842 16 Jul, 2017 Dental examination Z01.20 [facility] [address] [address]- 4306 13 Jul, 2017 Type 2 diabetes mellitus without complications E11.9 [facility] [address] [address]- 5830 13 Jul, 2017 Raynaud''s phenomenon without gangrene I73.00 ; Arthritis M19.90 and Hypertension, benign I10 [facility] [id number] [address]- 2074 08 Jul, 2017 Type 2 diabetes mellitus without complications E11.9 [facility] [id number] [place] [address] 31295- 6812 08 Jul, 2017 [facility] [id number] [place] [address] 84738- 2321 Jul, [facility] [id number] [place] [address] 17204- 6394 Jul, Type 2 diabetes mellitus without complications E11.9 [facility] [id number] [place] [address] 22465- 1245 Jun, Type 2 diabetes mellitus without complications E11.9 ; half-way current use of insulin Z79.4 and Acute idiopathic gout of left hand M10.042 [facility] [address] [place] [address] 90641- 1345 27 Jun, 2017 Type 2 diabetes mellitus without complications E11.9 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 [place] [address] [place] [address] 93659- 6951 Jun, [facility] [id number] [place] [address] 79149- 8745 Jun, Type 2 diabetes mellitus without complications E11.9 [facility] [address] [place] [address] 61452- 1030 Jun, [facility] [id number] [place] [address] 43831- 7387 Jun, Type 2 diabetes mellitus without complications E11.9 ; half-way current use of insulin Z79.4 and Acute idiopathic gout of left hand M10.042 [facility] [id number] [place] [address] 91364- 7037 May, [facility] [address] [address]- 1445 May, Type 2 diabetes mellitus without complications E11.9 [facility] [address] [address]- 4861 May, Post herpetic neuralgia B02.29 [facility] [address] [address]- 6866 May, Type 2 diabetes mellitus without complications E11.9 [place] [address] [address]- 7307 Apr, Type 2 diabetes mellitus without complications E11.9 ; Chronic gout of multiple sites, unspecified cause M1A.09X0 and Anxiety F41.9 [place] [address] [address]- 7381 Apr, [place] [address] [address]- 0662 Apr, [place] [address] [address]- 5363 Apr, Post herpetic neuralgia B02.29 [place] [address] [address]- 3224 Aug, Type 2 diabetes mellitus without complications E11.9 [place] [address] [address]- 2049 14 Aug, 2016 Encounter to establish care Z76.89 ; Type 2 diabetes mellitus without complications E11.9 ; 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
--- OUTSIDE RECORDS SUMMARY | 2018-03-23 07:19 | XMS REPORT ---
Author Author ELIAS DOWNING Organization [facility] Address [address] [place] [address] Care Team Providers Care Bull Gang Worker Name Role Phone ELIAS DOWNING Unavailable PROBLEMS Type Condition ICD9-CM Code YCR49-SN Code Onset Dates Condition Status SNOMED Code Problem penitentiary current use of insulin Z79.4 Active 556042438 Problem Coronary artery disease involving [place] coronary artery of [place] heart without angina pectoris I25.10 Active 6125805324726 Problem Type 2 diabetes mellitus without complications E11.9 Active 092502909 Problem Essential hypertension I10 Active 25940299 Problem PVD (peripheral vascular disease) I73.9 Active 592247424 Problem Anxiety F41.9 Active 88627452 Problem Systemic lupus erythematosus with other organ involvement, unspecified SLE type M32.19 Active 08089117 Problem Raynaud''s phenomenon without gangrene I73.00 Active 141271495 Problem Post herpetic neuralgia B02.29 Active 9539713 Problem Chronic gout of multiple sites, unspecified cause M1A.09X0 Active 98172420 Problem Arthritis M19.90 Active 9991988 Problem Hypertension, benign I10 Active 22100639 ALLERGIES No Information ENCOUNTERS Encounter Location Date Diagnosis [facility] [id number], [place] [address] Feb, [facility] [id number] [place] [address] 56513- 5987 Dec, Essential hypertension I10 and Type 2 diabetes mellitus without complications E11.9 [facility] [id number] [place] [address] 68676- 0371 Nov, [facility] [address], [place] [address] 5966 Nov, [facility] [address] [place] [address] 10086- 0275 Oct, Type 2 diabetes mellitus without complications E11.9 ; Arthritis M19.90 and Systemic lupus erythematosus with other organ involvement, unspecified SLE type M32.19 [address] [id number] [place] [address] 32371- 3749 Oct, [facility] [id number] [place] [address] 82383- 9353 Oct, Systemic lupus erythematosus with other organ involvement, unspecified SLE type M32.19 [facility] [id number] [place] [address] 22191- 0553 Sep, [place] [id number] [place] [address] 85209- 2449 Sep, Type 2 diabetes mellitus without complications E11.9 ; Anxiety F41.9 ; Dysuria R30.0 and Hypertension, benign I10 [place] [id number] [place] [address] 56706- 9081 Sep, Type 2 diabetes mellitus without complications E11.9 [place] [id number] [place] [address] 19742- 7345 Sep, Systemic lupus erythematosus with other organ involvement, unspecified SLE type M32.19 [place] [id number] [place] [address] 62304- 1785 Sep, Post herpetic neuralgia B02.29 [place] [id number] [place] [address] 40481- 4350 Sep, Raynaud''s phenomenon without gangrene I73.00 [place] [id number] [place] [address] 30802- 3241 Sep, [place] [id number] [place] [address] 28315- 5963 Aug, [place] [id number] [place] [address] 08913- 6270 Aug, Type 2 diabetes mellitus without complications E11.9 [place] [id number] [place] [address] 45493- 1548 19 Aug, 2017 [facility] [id number] [place] [address] 78667- 5548 18 Aug, 2017 [facility] [id number] [place] [address] 98471- 9803 14 Aug, 2017 Type 2 diabetes mellitus without complications E11.9 [facility] [id number] [place] [address] 96827- 1973 14 Aug, 2017 Systemic lupus erythematosus with other organ involvement, unspecified SLE type M32.19 [facility] [id number] [place] [address] 08486- 4658 05 Aug, 2017 [facility] [id number] [place] [address] 70364- 9944 Jul, [facility] [id number] [place] [address] 97269- 8425 16 Jul, 2017 Raynaud''s phenomenon without gangrene I73.00 [facility] [id number] [place] [address] 14480- 3790 16 Jul, 2017 Dental examination Z01.20 [facility] [id number] [place] [address] 92422- 2499 13 Jul, 2017 Type 2 diabetes mellitus without complications E11.9 [facility] [id number] [place] [address] 46163- 0859 13 Jul, 2017 Raynaud''s phenomenon without gangrene I73.00 ; Arthritis M19.90 and Hypertension, benign I10 [facility] [id number] [place] [address] 02270- 7683 08 Jul, 2017 Type 2 diabetes mellitus without complications E11.9 [facility] [id number] [place] [address] 44445- 3099 08 Jul, 2017 [facility] [id number] [place] [address] 54462- 4960 Jul, [facility] [address], [place] [address] 2581 02 Jul, 2017 Type 2 diabetes mellitus without complications E11.9 [facility] [address] [place] [address] 25927- 5463 Jun, Type 2 diabetes mellitus without complications E11.9 ; 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 and Acute idiopathic gout of left hand M10.042 [facility] [id number] [place] [address] 35466- 3093 Jun, Type 2 diabetes mellitus without complications E11.9 and 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 [facility] [id number] [place] [address] 01929- 5864 Jun, [facility] [id number] [place] [address] 31056- 5115 Jun, Type 2 diabetes mellitus without complications E11.9 [facility] [id number] [place] [address] 15646- 5065 Jun, [facility] [id number] [place] [address] 74671- 0654 Jun, Type 2 diabetes mellitus without complications E11.9 ; 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 and Acute idiopathic gout of left hand M10.042 [facility] [address], [place] [address] 0902 May, [facility] [id number] [place] [address] 79692- 6679 May, Type 2 diabetes mellitus without complications E11.9 [facility] [id number] [place] [address] 81277- 5895 May, Post herpetic neuralgia B02.29 [facility] [id number] [place] [address] 87348- 1413 May, Type 2 diabetes mellitus without complications E11.9 [facility] [id number] [place] [address] 3367 Apr, Type 2 diabetes mellitus without complications E11.9 ; Chronic gout of multiple sites, unspecified cause M1A.09X0 and Anxiety F41.9 [place] [address] [address], [place] [address]- 1432 Apr, [place] [id number] [place] [address] 10695- 2467 Apr, [place] [id number] [place] [address] 51564- 2894 Apr, Post herpetic neuralgia B02.29 [id number] [place] [address] 13534- 0587 Aug, Type 2 diabetes mellitus without complications E11.9 [place] [id number] [place] [address] 74223- 8707 14 Aug, 2016 Encounter to establish care Z76.89 ; Type 2 diabetes mellitus without complications E11.9 ; 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
--- OUTSIDE RECORDS SUMMARY | 2018-03-23 07:19 | XMS REPORT ---
Author Author ELIAS DOWNING Organization [facility] Address [address] [place] [address] Care Team Providers Care Virtual Assistant For Advertisers Name Role Phone ELIAS DOWNING Unavailable PROBLEMS Type Condition ICD9-CM Code KRK37-JC Code Onset Dates Condition Status SNOMED Code Problem Type 2 diabetes mellitus without complications E11.9 Active 096441867 Problem Chronic gout of multiple sites, unspecified cause M1A.09X0 Active 05669995 Problem Coronary artery disease involving [place] coronary artery of [place] heart without angina pectoris I25.10 Active 7463797863494 Problem Essential hypertension I10 Active 35936264 Problem PVD (peripheral vascular disease) I73.9 Active 079866149 Problem Anxiety F41.9 Active 40963387 Problem detention current use of insulin Z79.4 Active 531321707 Problem Arm paresthesia, left R20.2 Active 37962046 Problem Systemic lupus erythematosus with other organ involvement, unspecified SLE type M32.19 Active 74984718 Problem Hypertension, benign I10 Active 86249187 Problem Post herpetic neuralgia B02.29 Active 3444988 Problem Raynaud''s phenomenon without gangrene I73.00 Active 393606501 Problem Arthritis M19.90 Active 5209261 ALLERGIES No Information ENCOUNTERS Encounter Location Date Diagnosis [facility] [address], [place] [address] 3478 Apr, [facility] [address], [place] [address] 5314 Feb, [facility] [id number] [place] [address] 53855- 4420 Feb, [facility] [id number], [place] [address]- 6312 Feb, Arm paresthesia, left R20.2 [facility] [id number], [place] [address]- 4550 Feb, [facility] [id number] [place] [address] 08602- 3766 Dec, Essential hypertension I10 and Type 2 diabetes mellitus without complications E11.9 [facility] [id number] [place] [address] 80164- 7809 Nov, [facility] [address] 89105- 8065 Nov, [facility] [id number] [place] [address] 35438- 1610 Oct, Type 2 diabetes mellitus without complications E11.9 ; Arthritis M19.90 and Systemic lupus erythematosus with other organ involvement, unspecified SLE type M32.19 [address] [id number] [place] [address] 39609- 0897 Oct, [facility] [id number] [place] [address] 38175- 1943 Oct, Systemic lupus erythematosus with other organ involvement, unspecified SLE type M32.19 [address] [id number] [place] [address] 86086- 7215 Sep, [facility] [id number] [place] [address] 28185- 8449 Sep, Type 2 diabetes mellitus without complications E11.9 ; Anxiety F41.9 ; Dysuria R30.0 and Hypertension, benign I10 [facility] [address] [place] [address] 85193- 5574 Sep, Type 2 diabetes mellitus without complications E11.9 [place] [id number] [place] [address] 12113- 6301 Sep, Systemic lupus erythematosus with other organ involvement, unspecified SLE type M32.19 [facility] [address] [place] [address] 76852- 3694 Sep, Post herpetic neuralgia B02.29 [place] [address], [place] [address]- 1104 08 Sep, 2017 Raynaud''s phenomenon without gangrene I73.00 [facility] [address], [place] [address]- 0401 03 Sep, 2017 [facility] [address] [place] [address] 62900- 3509 Aug, [facility] [id number] [place] [address] 12188- 5146 Aug, Type 2 diabetes mellitus without complications E11.9 [facility] [id number] [place] [address] 89412- 6569 19 Aug, 2017 [facility] [id number] [place] [address] 79386- 2922 18 Aug, 2017 [facility] [id number] [place] [address] 66615- 1214 14 Aug, 2017 Type 2 diabetes mellitus without complications E11.9 [facility] [address], [place] [address]- 5390 14 Aug, 2017 Systemic lupus erythematosus with other organ involvement, unspecified SLE type M32.19 [facility] [address], [place] [address]- 3135 05 Aug, 2017 [facility] [address], [place] [address]- 3654 Jul, [facility] [address], [place] [address]- 6242 16 Jul, 2017 Raynaud''s phenomenon without gangrene I73.00 [facility] [address] [place] [address] 94341- 4279 16 Jul, 2017 Dental examination Z01.20 [facility] [address], [place] [address]- 2670 13 Jul, 2017 Type 2 diabetes mellitus without complications E11.9 [facility] [address], [place] [address]- 1459 13 Jul, 2017 Raynaud''s phenomenon without gangrene I73.00 ; Arthritis M19.90 and Hypertension, benign I10 [facility] [id number], [place] [address]- 5743 08 Jul, 2017 Type 2 diabetes mellitus without complications E11.9 [facility] [id number] [place] [address] 87594- 7462 08 Jul, 2017 [facility] [id number] [place] [address] 31473- 0318 Jul, [facility] [id number] [place] [address] 55515- 3289 Jul, Type 2 diabetes mellitus without complications E11.9 [facility] [id number] [place] [address] 98314- 4432 Jun, Type 2 diabetes mellitus without complications E11.9 ; detention current use of insulin Z79.4 and Acute idiopathic gout of left hand M10.042 [facility] [address] [place] [address] 17978- 9520 27 Jun, 2017 Type 2 diabetes mellitus without complications E11.9 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 [place] [address] [place] [address] 97941- 7002 Jun, [facility] [id number] [place] [address] 68139- 7098 Jun, Type 2 diabetes mellitus without complications E11.9 [facility] [address] [place] [address] 39022- 3789 Jun, [facility] [id number] [place] [address] 29872- 2978 Jun, Type 2 diabetes mellitus without complications E11.9 ; detention current use of insulin Z79.4 and Acute idiopathic gout of left hand M10.042 [facility] [id number] [place] [address] 79411- 3171 May, [facility] [address], [place] [address]- 2305 May, Type 2 diabetes mellitus without complications E11.9 [facility] [address], [place] [address]- 8847 May, Post herpetic neuralgia B02.29 [facility] [address], [place] [address]- 6924 May, Type 2 diabetes mellitus without complications E11.9 [place] [address], [place] [address]- 9708 Apr, Type 2 diabetes mellitus without complications E11.9 ; Chronic gout of multiple sites, unspecified cause M1A.09X0 and Anxiety F41.9 [place] [address], [place] [address]- 8425 Apr, [place] [address], [place] [address]- 9493 Apr, [place] [address], [place] [address]- 4429 Apr, Post herpetic neuralgia B02.29 [place] [address], [place] [address]- 0671 Aug, Type 2 diabetes mellitus without complications E11.9 [place] [address], [place] [address]- 7093 14 Aug, 2016 Encounter to establish care Z76.89 ; Type 2 diabetes mellitus without complications E11.9 ; 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.4 ; Essential hypertension I10 ; Chronic gout of multiple sites, unspecified cause M1A.09X0 ; Coronary artery disease involving [place] coronary artery of [place] heart without angina pectoris I25.10 ; PVD (peripheral vascular disease) I73.9 ; Financial difficulties Z59.8 and Anxiety F41.9 [place] [address] [place] [address]- 8496 Aug, IMMUNIZATIONS No Known Immunizations SOCIAL HISTORY Never Assessed REASON FOR VISIT repository med PLAN OF CARE VITAL SIGNS MEDICATIONS Medication Instructions Dosage Frequency Start Date End Date Duration Status Celebrex 200 mg Orally twice a day 1 capsule with food 12h 90 days Active RESULTS No Results PROCEDURES No Known procedures [...] wound to left hand Hospitalization History stroke 2015 Hospitalization History 14 heart caths Hospitalization History surgeries listed above Hospitalization History surgeries of the ears as a child Hospitalization History shingles (internal) 2016
--- OUTSIDE RECORDS SUMMARY | 2018-03-23 07:20 | XMS REPORT ---
Author Author ELIAS DOWNING Organization [facility] Address [address] [place] [address] Care Team Providers Care Silver Recovery Operator Name Role Phone ELIAS DOWNING Unavailable PROBLEMS Type Condition ICD9-CM Code OLF86-VN Code Onset Dates Condition Status SNOMED Code Problem Type 2 diabetes mellitus without complications E11.9 Active 255367295 Problem Chronic gout of multiple sites, unspecified cause M1A.09X0 Active 61877506 Problem Coronary artery disease involving c[place]o coronary artery of caddo heart without angina pectoris I25.10 Active 5441636230731 Problem Essential hypertension I10 Active 08370045 Problem PVD (peripheral vascular disease) I73.9 Active 696885764 Problem Anxiety F41.9 Active 24520282 Problem FCI current use of insulin Z79.4 Active 412783709 Problem Arm paresthesia, left R20.2 Active 04163471 Problem Systemic lupus erythematosus with other organ involvement, unspecified SLE type M32.19 Active 26165025 Problem Hypertension, benign I10 Active 45461866 Problem Post herpetic neuralgia B02.29 Active 7111948 Problem Raynaud''s phenomenon without gangrene I73.00 Active 315296292 Problem Arthritis M19.90 Active 8129767 ALLERGIES No Information ENCOUNTERS Encounter Location Date Diagnosis [facility] [id number], [place] [address] Apr, [facility] [address], [place] [address] 8[address] Feb, [facility] [id number] [place] [address] 20591- 7896 Feb, [facility] [id number], [place] [address] 2861 Feb, Arm paresthesia, left R20.2 [facility] [id number] [address] 3790 Feb, [facility] [id number] [place] [address] 25263- 6638 Dec, Essential hypertension I10 and Type 2 diabetes mellitus without complications E11.9 [facility] [id number] [place] [address] 12896- 0376 Nov, [facility] [address] [address]- 0919 Nov, [facility] [id number] [place] [address] 22712- 7939 Oct, Type 2 diabetes mellitus without complications E11.9 ; Arthritis M19.90 and Systemic lupus erythematosus with other organ involvement, unspecified SLE type M32.19 [place] [id number] [place] [address] 30747- 9839 Oct, [facility] [id number] [place] [address] 55180- 4216 Oct, Systemic lupus erythematosus with other organ involvement, unspecified SLE type M32.19 [place] [id number] [place] [address] 55545- 8446 Sep, [facility] [id number] [place] [address] 50702- 8301 Sep, Type 2 diabetes mellitus without complications E11.9 ; Anxiety F41.9 ; Dysuria R30.0 and Hypertension, benign I10 [facility] [address] [place] [address] 69958- 4127 Sep, Type 2 diabetes mellitus without complications E11.9 [place] [id number] [place] [address] 03884- 6021 Sep, Systemic lupus erythematosus with other organ involvement, unspecified SLE type M32.19 [facility] [address] [place] [address] 23306- 1834 Sep, Post herpetic neuralgia B02.29 [place], [place] [address] 7414 08 Sep, 2017 Raynaud''s phenomenon without gangrene I73.00 [facility] [address], [place] [address] 2760 03 Sep, 2017 [facility] [address] [place] [address] 18509- 3641 Aug, [facility] [id number] [place] [address] 86341- 2242 Aug, Type 2 diabetes mellitus without complications E11.9 [facility] [id number] [place] [address] 29610- 2970 19 Aug, 2017 [facility] [id number] [place] [address] 38054- 8817 18 Aug, 2017 [facility] [id number] [place] [address] 22535- 1784 14 Aug, 2017 Type 2 diabetes mellitus without complications E11.9 [facility] [address], [place] [address] 6050 14 Aug, 2017 Systemic lupus erythematosus with other organ involvement, unspecified SLE type M32.19 [facility] [address], [place] [address] 5604 05 Aug, 2017 [facility] [address], [place] [address] 2943 Jul, [facility] [address], [place] [address] 1501 16 Jul, 2017 Raynaud''s phenomenon without gangrene I73.00 [facility] [address] [place] [address] 78886- 6019 16 Jul, 2017 Dental examination Z01.20 [facility] [address], [place] [address] 5505 13 Jul, 2017 Type 2 diabetes mellitus without complications E11.9 [facility] [address], [place] [address]- 0844 13 Jul, 2017 Raynaud''s phenomenon without gangrene I73.00 ; Arthritis M19.90 and Hypertension, benign I10 [facility] [address], [place] [address] 2564 08 Jul, 2017 Type 2 diabetes mellitus without complications E11.9 [facility] [id number] [place] [address] 01717- 1582 08 Jul, 2017 [facility] [id number] [place] [address] 31931- 8809 Jul, [facility] [id number] [place] [address] 31093- 5053 Jul, Type 2 diabetes mellitus without complications E11.9 [facility] [id number] [place] [address] 00897- 3693 Jun, Type 2 diabetes mellitus without complications E11.9 ; FCI current use of insulin Z79.4 and Acute idiopathic gout of left hand M10.042 [facility] [address] [place] [address] 31734- 3207 27 Jun, 2017 Type 2 diabetes mellitus without complications E11.9 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 [place] [address] [place] [address] 59155- 6819 Jun, [facility] [id number] [place] [address] 66420- 0980 Jun, Type 2 diabetes mellitus without complications E11.9 [facility] [address] [place] [address] 63915- 4585 Jun, [facility] [id number] [place] [address] 78295- 6995 Jun, Type 2 diabetes mellitus without complications E11.9 ; FCI current use of insulin Z79.4 and Acute idiopathic gout of left hand M10.042 [facility] [id number] [place] [address] 54905- 0602 May, [facility] [address], [place] [address]- 9057 May, Type 2 diabetes mellitus without complications E11.9 [facility] [address], [place] [address]- 0514 May, Post herpetic neuralgia B02.29 [facility] [address], [place] [address]- 9195 May, Type 2 diabetes mellitus without complications E11.9 [place] [address], [place] [address] 4623 Apr, Type 2 diabetes mellitus without complications E11.9 ; Chronic gout of multiple sites, unspecified cause M1A.09X0 and Anxiety F41.9 [place] [address], [place] [address]- 0599 Apr, [place] [address], [place] [address]- 5520 Apr, [place] [address], [place] [address]- 9397 Apr, Post herpetic neuralgia B02.29 [place] [address], [place] [address]- 4760 Aug, Type 2 diabetes mellitus without complications E11.9 [place] [address], [place] [address]- 0275 14 Aug, 2016 Encounter to establish care Z76.89 ; Type 2 diabetes mellitus without complications E11.9 ; 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.4 ; Essential hypertension I10 ; Chronic gout of multiple sites, unspecified cause M1A.09X0 ; Coronary artery disease involving c[place] coronary artery of caddo heart without angina pectoris I25.10 ; PVD (peripheral vascular disease) I73.9 ; Financial difficulties Z59.8 and Anxiety F41.9 [place] [address], [place] [address]- 3217 Aug, IMMUNIZATIONS No Known Immunizations SOCIAL HISTORY Never Assessed REASON FOR VISIT BS f/u attempt PLAN OF CARE VITAL SIGNS MEDICATIONS Medication Instructions Dosage Frequency Start Date End Date Duration Status Atorvastatin Calcium 20 mg Orally Once a day 1/2 tablet 24h 60 days Active Pantoprazole Sodium 40 mg Orally twice a day 1 tablet 12h Active RESULTS No Results PROCEDURES No Known [...]
--- OUTSIDE RECORDS SUMMARY | 2018-03-23 07:20 | XMS REPORT ---
Author Author ELIAS DOWNING Organization [facility] Address [address] [place] [address] Care Team Providers Care Route Relief Driver Name Role Phone ELIAS DOWNING Unavailable PROBLEMS Type Condition ICD9-CM Code LUT03-MN Code Onset Dates Condition Status SNOMED Code Problem Type 2 diabetes mellitus without complications E11.9 Active 658046182 Problem Chronic gout of multiple sites, unspecified cause M1A.09X0 Active 45404696 Problem Coronary artery disease involving [place] coronary artery of [place] heart without angina pectoris I25.10 Active 1807260236597 Problem Essential hypertension I10 Active 13570753 Problem PVD (peripheral vascular disease) I73.9 Active 925819752 Problem Anxiety F41.9 Active 76610531 Problem senior living current use of insulin Z79.4 Active 713301796 Problem Arm paresthesia, left R20.2 Active 85776352 Problem Systemic lupus erythematosus with other organ involvement, unspecified SLE type M32.19 Active 23203486 Problem Hypertension, benign I10 Active 48360178 Problem Post herpetic neuralgia B02.29 Active 6993482 Problem Raynaud''s phenomenon without gangrene I73.00 Active 405639077 Problem Arthritis M19.90 Active 4704979 ALLERGIES Substance Reaction Event Type Date Status Codeine Sulfate nausea Drug Allergy Aug, Active ENCOUNTERS Encounter Location Date Diagnosis [facility] [address] [facility] [id number] [address] 0305 Apr, [facility] [id number] [address]- 7623 Feb, [facility] [id number] [address]- 9675 Feb, Arm paresthesia, left R20.2 [facility] [id number] [address]- 1405 Feb, [facility] [address], [place] [address]- 4159 Dec, Essential hypertension I10 and Type 2 diabetes mellitus without complications E11.9 [facility] [id number] [place] [address] 03662- 6162 Nov, [facility] [id number] [place] [address] 53469- 8109 Nov, [facility] [id number] [place] [address] 00389- 5049 Oct, Type 2 diabetes mellitus without complications E11.9 ; Arthritis M19.90 and Systemic lupus erythematosus with other organ involvement, unspecified SLE type M32.19 [place] [id number] [place] [address] 15510- 8489 Oct, [place] [id number] [place] [address] 08580- 8389 Oct, Systemic lupus erythematosus with other organ involvement, unspecified SLE type M32.19 [place] [id number] [place] [address] 97488- 6388 Sep, [facility] [id number] [place] [address] 41843- 8943 Sep, Type 2 diabetes mellitus without complications E11.9 ; Anxiety F41.9 ; Dysuria R30.0 and Hypertension, benign I10 [place] [address], [place] [address]- 3870 Sep, Type 2 diabetes mellitus without complications E11.9 [place] [address] [address]- 2129 Sep, Systemic lupus erythematosus with other organ involvement, unspecified SLE type M32.19 [facility] [address], [place] [address]- 3488 Sep, Post herpetic neuralgia B02.29 [facility] [id number] [place] [address] 95965- 7377 Sep, Raynaud''s phenomenon without gangrene I73.00 [facility] [address], [place] [address]- 4761 Sep, [facility] [address], [place] [address]- 6751 Aug, [facility] [id number] [place] [address] 00874- 4581 Aug, Type 2 diabetes mellitus without complications E11.9 [facility] [address] [place] [address] 73333- 9846 19 Aug, 2017 [facility] [id number] [place] [address] 76317- 1052 18 Aug, 2017 [facility] [id number] [place] [address] 52848- 2822 14 Aug, 2017 Type 2 diabetes mellitus without complications E11.9 [facility] [id number] [place] [address] 89045- 2053 14 Aug, 2017 Systemic lupus erythematosus with other organ involvement, unspecified SLE type M32.19 [facility] [address] [place] [address] 36277- 3298 05 Aug, 2017 [facility] [address] [place] [address] 66696- 6634 22 Jul, 2017 [facility] [address], [place] [address]- 2976 16 Jul, 2017 Raynaud''s phenomenon without gangrene I73.00 [facility] [address] [place] [address] 83883- 6674 16 Jul, 2017 Dental examination Z01.20 [facility] [address], [place] [address]- 2600 13 Jul, 2017 Type 2 diabetes mellitus without complications E11.9 [facility] [address] [place] [address] 75553- 4233 Jul, Raynaud''s phenomenon without gangrene I73.00 ; Arthritis M19.90 and Hypertension, benign I10 [facility] [id number] [place] [address] 82671- 8836 08 Jul, 2017 Type 2 diabetes mellitus without complications E11.9 [facility] [id number] [place] [address] 73173- 8873 08 Jul, 2017 [facility] [id number] [place] [address] 44227- 5266 Jul, [facility] [id number] [place] [address] 53459- 3038 Jul, Type 2 diabetes mellitus without complications E11.9 [facility] [id number] [place] [address] 45671- 5791 Jun, Type 2 diabetes mellitus without complications E11.9 ; 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 current use of insulin Z79.4 and Acute idiopathic gout of left hand M10.042 [facility] [id number] [place] [address] 23830- 1344 Jun, Type 2 diabetes mellitus without complications E11.9 and 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 current use of insulin Z79.4 [facility] [id number] [place] [address] 79298- 5514 Jun, [facility] [id number] [place] [address] 60614- 7014 Jun, Type 2 diabetes mellitus without complications E11.9 [facility] [address] [place] [address] 63181- 0427 Jun, [facility] [id number] [place] [address] 91558- 9927 Jun, Type 2 diabetes mellitus without complications E11.9 ; senior living current use of insulin Z79.4 and Acute idiopathic gout of left hand M10.042 [facility] [address] [place] [address] 73209- 4564 May, [place] [address] [address]- 5253 May, Type 2 diabetes mellitus without complications E11.9 [place] [address] [address]- 2542 May, Post herpetic neuralgia B02.29 [place] [address] [address]- 4345 May, Type 2 diabetes mellitus without complications E11.9 [place] [address] [address]- 5415 Apr, Type 2 diabetes mellitus without complications E11.9 ; Chronic gout of multiple sites, unspecified cause M1A.09X0 and Anxiety F41.9 [place] [address] [address]- 8438 Apr, [place] [id number] [place] [address] 46573- 0757 Apr, [place] [address] [place] [address] 55336- 5381 Apr, Post herpetic neuralgia B02.29 [place] [address] [place] [address] 27351- 4906 Aug, Type 2 diabetes mellitus without complications E11.9 [place] [address] [address]- 4456 14 Aug, 2016 Encounter to establish care Z76.89 ; Type 2 diabetes mellitus without complications E11.9 ; 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 current use of insulin Z79.4 ; Essential hypertension I10 ; Chronic gout of multiple sites, unspecified cause M1A.09X0 ; Coronary artery disease involving [place] coronary artery of [place] heart without angina pectoris I25.10 ; PVD (peripheral vascular disease) I73.9 ; Financial difficulties Z59.8 and Anxiety F41.9 [place] [id number] [address]- 6167 05 Aug, 2016 IMMUNIZATIONS No Known Immunizations SOCIAL HISTORY Never Assessed REASON FOR VISIT 1 month follow up , PT has concerns with swelling in hands and feet and turning blue-[place] HIREN PLAN OF CARE VITAL SIGNS Height 68 in 2017-08-20 Weight 189.0 lbs 2017-08-20 Temperature 98.4 degrees Fahrenheit 2017-08-20 Heart Rate 78 bpm 2017-08-20 Respiratory Rate 18 2017-08-20 BMI 28.73 kg/m2 2017-08-20 Blood pressure systolic 156 mmHg 2017-08-20 Blood pressure diastolic 82 mmHg 2017-08-20 MEDICATIONS Medication Instructions Dosage Frequency Start Date End Date Duration Status Aspirin Adult Low Dose 81 MG Orally Once a day 1 tablet 24h Active Metformin HCl 1000 MG Orally Twice a day 1 tablet with meals 12h Jul, Active Pen Lipan 30G X 8 MM subcutaneously Once a day Use with tresiba pens to Inject 24h Jul, 90 days Active Uloric 80 MG Orally Once a day 1 tablet 24h Apr, Sep, 30 day(s) Not-Taking Toprol XL 50 mg Orally 2 times a day 1 tablet 12h Jun, Active Metoprolol Succinate ER 50 MG Orally Once a day 1 tablet 24h Not- Taking Uloric 80 MG Orally Once a day 1 tablet 24h Jun, Active Rosser 7.5-325 MG Orally every 6 hrs 1 tablet as needed 6h Aug, Active Tresiba FlexTouch 200 UNIT/ML Subcutaneous Once a day inject 140 units 24h Jun, Active Pantoprazole Sodium 40 mg Orally twice a day 1 tablet 12h Active Atorvastatin Calcium 20 mg Orally Once a day 1 tablet 24h Active Plavix 75 MG Orally Once a day 1 tablet 24h Not-Taking Glucocard Expression Monitor w/Device test blood sugar 12h Aug, Active Celebrex 200 MG Orally twice a day 1 capsule with food 12h 30 days Active Cane 1 as directed Apr, Active Blood Glucose Monitor System w/Device as directed Jul, Active Ramipril 5 mg Orally Once a day 1 capsule 24h Not-Taking Gabapentin 600 MG Orally 2 times a day 1 tablet 12h 90 days Active Glucocard Expression Test - test blood sugar 12h Aug, Active Clonidine HCl 0.1 MG Orally Once a day 1 tablet at bedtime 24h Active Hydroxychloroquine Sulfate 200 mg Orally Once a day 1 tablet with food or milk 24h Aug, Active Blood Glucose Test Strip Test Strips test 3 times per day Jul, Active Ambien 10 mg Orally Once a day 1 tablet at bedtime as needed 24h Apr, Active Amlodipine Besylate 10 MG Orally Once a day 1 tablet 24h Active RESULTS No Results PROCEDURES No Known [...]
--- OUTSIDE RECORDS SUMMARY | 2018-03-23 07:20 | XMS REPORT ---
Author Author ELIAS DOWNING Organization [facility] Address [address] [place] [address] Care Team Providers Care Washing Machine Loader Name Role Phone ELIAS DOWNING Unavailable PROBLEMS Type Condition ICD9-CM Code DKR91-IK Code Onset Dates Condition Status SNOMED Code Problem Type 2 diabetes mellitus without complications E11.9 Active 210094377 Problem Chronic gout of multiple sites, unspecified cause M1A.09X0 Active 55687628 Problem Coronary artery disease involving chilkat coronary artery of chilkat heart without angina pectoris I25.10 Active 0412799660711 Problem Essential hypertension I10 Active 36974441 Problem PVD (peripheral vascular disease) I73.9 Active 883016667 Problem Anxiety F41.9 Active 41389893 Problem 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 current use of insulin Z79.4 Active 601094425 Problem Arm paresthesia, left R20.2 Active 04039860 Problem Systemic lupus erythematosus with other organ involvement, unspecified SLE type M32.19 Active 25721558 Problem Hypertension, benign I10 Active 15718698 Problem Post herpetic neuralgia B02.29 Active 0982878 Problem Raynaud''s phenomenon without gangrene I73.00 Active 623736391 Problem Arthritis M19.90 Active 8580708 ALLERGIES No Information ENCOUNTERS Encounter Location Date Diagnosis [facility] [id number], [place] [address] Apr, [facility] [id number] [place] [address] 57980- 8499 Feb, Arm paresthesia, left R20.2 [facility] [address] [place] [address] 77085- 2161 Feb, [facility] [id number] [place] [address] 22427- 6381 Dec, Essential hypertension I10 and Type 2 diabetes mellitus without complications E11.9 [place] [id number] [place] [address] 07379- 8316 Nov, [facility] [id number] [place] [address] 67341- 5387 Nov, [facility] [id number] [place] [address] 32095- 2025 Oct, Type 2 diabetes mellitus without complications E11.9 ; Arthritis M19.90 and Systemic lupus erythematosus with other organ involvement, unspecified SLE type M32.19 [place] [id number] [place] [address] 70884- 4611 Oct, [facility] [id number] [place] [address] 93402- 7792 Oct, Systemic lupus erythematosus with other organ involvement, unspecified SLE type M32.19 [place] [id number] [place] [address] 08141- 1442 Sep, [place] [id number] [place] [address] 71011- 0322 Sep, Type 2 diabetes mellitus without complications E11.9 ; Anxiety F41.9 ; Dysuria R30.0 and Hypertension, benign I10 [place] [id number] [place] [address] 97965- 6991 Sep, Type 2 diabetes mellitus without complications E11.9 [place] [id number] [place] [address] 95806- 4934 Sep, Systemic lupus erythematosus with other organ involvement, unspecified SLE type M32.19 [place] [id number] [place] [address] 80379- 3725 Sep, Post herpetic neuralgia B02.29 [place] [id number] [place] [address] 93641- 9307 Sep, Raynaud''s phenomenon without gangrene I73.00 [place] [id number] [place] [address] 40209- 5585 Sep, [facility] [address], [place] [address] 1020 Aug, [facility] [address] [place] [address] 38213- 8308 Aug, Type 2 diabetes mellitus without complications E11.9 [facility] [address] [place] [address] 68966- 0285 Aug, [facility] [id number] [place] [address] 76713- 9672 18 Aug, 2017 [facility] [id number] [place] [address] 91648- 6438 14 Aug, 2017 Type 2 diabetes mellitus without complications E11.9 [facility] [id number] [place] [address] 17355- 7891 14 Aug, 2017 Systemic lupus erythematosus with other organ involvement, unspecified SLE type M32.19 [facility] [address] [address]- 5968 05 Aug, 2017 [facility] [id number] [place] [address] 66974- 1829 22 Jul, 2017 [facility] [address] [place] [address] 87746- 1343 16 Jul, 2017 Raynaud''s phenomenon without gangrene I73.00 [facility] [address] [address] 8603 16 Jul, 2017 Dental examination Z01.20 [facility] [address] [place] [address] 75520- 3639 13 Jul, 2017 Type 2 diabetes mellitus without complications E11.9 [facility] [address] [address]- 8865 13 Jul, 2017 Raynaud''s phenomenon without gangrene I73.00 ; Arthritis M19.90 and Hypertension, benign I10 [facility] [id number] [address] 6040 08 Jul, 2017 Type 2 diabetes mellitus without complications E11.9 [facility] [address] [address]- 0974 08 Jul, 2017 [facility] [address] [address]- 5448 Jul, [facility] [address] [place] [address] 25088- 1889 Jul, Type 2 diabetes mellitus without complications E11.9 [facility] [id number], [place] [address] 2834 Jun, Type 2 diabetes mellitus without complications E11.9 ; 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 current use of insulin Z79.4 and Acute idiopathic gout of left hand M10.042 [facility] [address] [address] 3654 Jun, Type 2 diabetes mellitus without complications E11.9 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 [facility] [address] [address]- 9985 Jun, [facility] [address] [address]- 4916 Jun, Type 2 diabetes mellitus without complications E11.9 [facility] [address] [address]- 2632 Jun, [facility] [address] [address] 1842 Jun, Type 2 diabetes mellitus without complications E11.9 ; 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 and Acute idiopathic gout of left hand M10.042 [facility] [address] [address] 4711 May, [facility] [address] [address]- 6364 May, Type 2 diabetes mellitus without complications E11.9 [facility] [id number] [address] 4402 May, Post herpetic neuralgia B02.29 [place] [id number] [place] [address] 41116- 6673 May, Type 2 diabetes mellitus without complications E11.9 [place] [id number] [place] [address] 09951- 4051 Apr, Type 2 diabetes mellitus without complications E11.9 ; Chronic gout of multiple sites, unspecified cause M1A.09X0 and Anxiety F41.9 [place] [id number] [place] [address] 39077- 9185 Apr, [place] [id number] [place] [address] 05426- 0531 Apr, [place] [id number] [place] [address] 47088- 4379 Apr, Post herpetic neuralgia B02.29 [place] [address] [place] [address] 46606- 5241 Aug, Type 2 diabetes mellitus without complications E11.9 [place] [address] [place] [address] 06624- 2158 Aug, Encounter to establish care Z76.89 ; Type 2 diabetes mellitus without complications E11.9 ; 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 current use of insulin Z79.4 ; Essential hypertension I10 ; Chronic gout of multiple sites, unspecified cause M1A.09X0 ; Coronary artery disease involving chilkat coronary artery of chilkat heart without angina pectoris I25.10 ; PVD (peripheral vascular disease) I73.9 ; Financial difficulties Z59.8 and Anxiety F41.9 [place] [address] [place] [address] 29076- 5482 Aug, IMMUNIZATIONS No Known Immunizations SOCIAL HISTORY Never Assessed REASON FOR VISIT med change PLAN OF CARE VITAL SIGNS MEDICATIONS Medication Instructions Dosage Frequency Start Date End Date Duration Status NovoLog 100 UNIT/ML Subcutaneous 3 times a day with meals 30 umits Aug Active Tresiba FlexTouch 200 UNIT/ML Subcutaneous Once a day inject 100 units 24h 30 Jun, 2017 Active RESULTS No Results PROCEDURES No Known [...]
--- OUTSIDE RECORDS SUMMARY | 2018-03-23 07:20 | XMS REPORT ---
Author Author ELIAS DOWNING Organization [facility] Address [address] [place] [address] Care Team Providers Care Inspector Aligning Name Role Phone ELIAS DOWNING Unavailable PROBLEMS Type Condition ICD9-CM Code OFK15-MP Code Onset Dates Condition Status SNOMED Code Problem correction current use of insulin Z79.4 Active 528817399 Problem Coronary artery disease involving [place] coronary artery of [place] heart without angina pectoris I25.10 Active 7267430951537 Problem Type 2 diabetes mellitus without complications E11.9 Active 420206415 Problem Essential hypertension I10 Active 33724977 Problem PVD (peripheral vascular disease) I73.9 Active 886666536 Problem Anxiety F41.9 Active 97643580 Problem Systemic lupus erythematosus with other organ involvement, unspecified SLE type M32.19 Active 19542017 Problem Raynaud''s phenomenon without gangrene I73.00 Active 733694224 Problem Post herpetic neuralgia B02.29 Active 7067817 Problem Chronic gout of multiple sites, unspecified cause M1A.09X0 Active 51171629 Problem Arthritis M19.90 Active 7412885 Problem Hypertension, benign I10 Active 73196681 ALLERGIES No Information ENCOUNTERS Encounter Location Date Diagnosis [facility] [id number], [place] [address]130 Feb, [facility] [address] [place] [address] 65293- 1100 Dec, Essential hypertension I10 and Type 2 diabetes mellitus without complications E11.9 [facility] [address] [place] [address] 01423- 1342 Nov, [facility] [address], [place] [address] 1549 Nov, [facility] [address] [place] [address] 40511- 6366 Oct, Type 2 diabetes mellitus without complications E11.9 ; Arthritis M19.90 and Systemic lupus erythematosus with other organ involvement, unspecified SLE type M32.19 [place] [id number] [place] [address] 98291- 0345 Oct, [facility] [id number] [place] [address] 26736- 4434 Oct, Systemic lupus erythematosus with other organ involvement, unspecified SLE type M32.19 [facility] [id number] [place] [address] 09638- 5636 Sep, [place] [id number] [place] [address] 02286- 0800 Sep, Type 2 diabetes mellitus without complications E11.9 ; Anxiety F41.9 ; Dysuria R30.0 and Hypertension, benign I10 [place] [id number] [place] [address] 15011- 2014 Sep, Type 2 diabetes mellitus without complications E11.9 [place] [id number] [place] [address] 53896- 5629 Sep, Systemic lupus erythematosus with other organ involvement, unspecified SLE type M32.19 [place] [id number] [place] [address] 43496- 1881 Sep, Post herpetic neuralgia B02.29 [place] [id number] [place] [address] 00292- 5906 Sep, Raynaud''s phenomenon without gangrene I73.00 [place] [id number] [place] [address] 38605- 8095 Sep, [place] [id number] [place] [address] 13799- 7717 Aug, [place] [id number] [place] [address] 81207- 7461 Aug, Type 2 diabetes mellitus without complications E11.9 [place] [address] [place] [address] 08059- 9342 19 Aug, 2017 [facility] [id number] [place] [address] 13465- 6843 18 Aug, 2017 [facility] [id number] [place] [address] 60001- 7767 14 Aug, 2017 Type 2 diabetes mellitus without complications E11.9 [facility] [id number] [place] [address] 39246- 0137 14 Aug, 2017 Systemic lupus erythematosus with other organ involvement, unspecified SLE type M32.19 [facility] [id number] [place] [address] 15473- 0570 05 Aug, 2017 [facility] [id number] [place] [address] 11232- 9132 Jul, [facility] [id number] [place] [address] 03628- 1058 16 Jul, 2017 Raynaud''s phenomenon without gangrene I73.00 [facility] [id number] [place] [address] 31382- 7154 16 Jul, [address]20 [facility] [id number] [place] [address] 53105- 0194 13 Jul, 2017 Type 2 diabetes mellitus without complications E11.9 [facility] [id number] [place] [address] 05463- 1910 13 Jul, 2017 Raynaud''s phenomenon without gangrene I73.00 ; Arthritis M19.90 and Hypertension, benign I10 [facility] [id number] [place] [address] 51468- 0043 08 Jul, 2017 Type 2 diabetes mellitus without complications E11.9 [facility] [id number] [place] [address] 35801- 7938 08 Jul, 2017 [facility] [id number] [place] [address] 12041- 0485 Jul, [facility] [address], [place] [address]- 9691 02 Jul, 2017 Type 2 diabetes mellitus without complications E11.9 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 [id number] [place] [address] 34767- 7094 Jun, [facility] [id number] [place] [address] 69119- 6154 Jun, Type 2 diabetes mellitus without complications E11.9 [facility] [address] [place] [address] 95545- 3280 Jun, 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 [address], [place] [address]- 7936 May, [facility] [address] [place] [address] 68763- 6154 May, Type 2 diabetes mellitus without complications E11.9 [facility] [address] [place] [address] 97007- 1545 May, Post herpetic neuralgia B02.29 [facility] [address] [place] [address] 67267- 2630 May, Type 2 diabetes mellitus without complications E11.9 [facility] [address], [place] [address]- 9101 Apr, Type 2 diabetes mellitus without complications E11.9 ; Chronic gout of multiple sites, unspecified cause M1A.09X0 and Anxiety F41.9 [place] [address], [place] [address]- 9349 Apr, [place] [id number] [place] [address] 81998- 9152 Apr, [place] [id number] [place] [address] 48592- 6543 Apr, Post herpetic neuralgia B02.29 [id number] [place] [address] 79359- 7896 Aug, Type 2 diabetes mellitus without complications E11.9 [place] [id number] [place] [address] 29655- 1744 14 Aug, 2016 Encounter to establish care Z76.89 ; Type 2 diabetes mellitus without complications E11.9 ; 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
--- OUTSIDE RECORDS SUMMARY | 2018-03-23 07:20 | XMS REPORT ---
Author Author ELIAS DOWNING Organization [facility] Address [address] [place] [address] Care Team Providers Care Nurse Substance Abuse Name Role Phone ELIAS DOWNING Unavailable PROBLEMS Type Condition ICD9-CM Code UPU96-SF Code Onset Dates Condition Status SNOMED Code Problem FDC current use of insulin Z79.4 Active 641557270 Problem Coronary artery disease involving [place] coronary artery of [place] heart without angina pectoris I25.10 Active 2139399704040 Problem Type 2 diabetes mellitus without complications E11.9 Active 253107253 Problem Essential hypertension I10 Active 47661921 Problem PVD (peripheral vascular disease) I73.9 Active 560493012 Problem Anxiety F41.9 Active 20391874 Problem Systemic lupus erythematosus with other organ involvement, unspecified SLE type M32.19 Active 89414582 Problem Raynaud''s phenomenon without gangrene I73.00 Active 108970839 Problem Post herpetic neuralgia B02.29 Active 2481673 Problem Chronic gout of multiple sites, unspecified cause M1A.09X0 Active 81615072 Problem Arthritis M19.90 Active 7794287 Problem Hypertension, benign I10 Active 14016253 ALLERGIES No Information ENCOUNTERS Encounter Location Date Diagnosis [facility] [id number] [address] Feb, [facility] [id number] [place] [address] 78116- 7106 Dec, Essential hypertension I10 and Type 2 diabetes mellitus without complications E11.9 [facility] [id number] [place] [address] 56908- 4619 Nov, [facility] [address] [address] Nov, [facility] [id number] [place] [address] 52692- 2377 Oct, Type 2 diabetes mellitus without complications E11.9 ; Arthritis M19.90 and Systemic lupus erythematosus with other organ involvement, unspecified SLE type M32.19 [place] [id number] [place] [address] 94114- 0640 Oct, [facility] [id number] [place] [address] 19554- 8988 Oct, Systemic lupus erythematosus with other organ involvement, unspecified SLE type M32.19 [facility] [id number] [place] [address] 44417- 2976 Sep, [place] [id number] [place] [address] 66704- 2969 Sep, Type 2 diabetes mellitus without complications E11.9 ; Anxiety F41.9 ; Dysuria R30.0 and Hypertension, benign I10 [place] [id number] [place] [address] 72736- 5527 Sep, Type 2 diabetes mellitus without complications E11.9 [place] [id number] [place] [address] 02472- 8579 Sep, Systemic lupus erythematosus with other organ involvement, unspecified SLE type M32.19 [place] [id number] [place] [address] 72008- 4363 Sep, Post herpetic neuralgia B02.29 [place] [id number] [place] [address] 53248- 9752 Sep, Raynaud''s phenomenon without gangrene I73.00 [place] [id number] [place] [address] 46896- 5695 Sep, [place] [id number] [place] [address] 63007- 3917 Aug, [place] [id number] [place] [address] 50329- 9665 Aug, Type 2 diabetes mellitus without complications E11.9 [place] [address] [place] [address] 91123- 7806 19 Aug, 2017 [facility] [id number] [place] [address] 62076- 0960 18 Aug, 2017 [facility] [id number] [place] [address] 83019- 8313 14 Aug, 2017 Type 2 diabetes mellitus without complications E11.9 [facility] [id number] [place] [address] 43031- 8506 14 Aug, 2017 Systemic lupus erythematosus with other organ involvement, unspecified SLE type M32.19 [facility] [id number] [place] [address] 84534- 8132 05 Aug, 2017 [facility] [id number] [place] [address] 44480- 9332 Jul, [facility] [id number] [place] [address] 82837- 1485 16 Jul, 2017 Raynaud''s phenomenon without gangrene I73.00 [facility] [id number] [place] [address] 49634- 0514 16 Jul, 2017 Dental examination Z01.20 [facility] [id number] [place] [address] 70115- 8589 13 Jul, 2017 Type 2 diabetes mellitus without complications E11.9 [facility] [id number] [place] [address] 12904- 5278 13 Jul, 2017 Raynaud''s phenomenon without gangrene I73.00 ; Arthritis M19.90 and Hypertension, benign I10 [facility] [id number] [place] [address] 33052- 7163 08 Jul, 2017 Type 2 diabetes mellitus without complications E11.9 [facility] [id number] [place] [address] 60225- 0161 08 Jul, 2017 [facility] [id number] [place] [address] 32280- 8215 Jul, [facility] [address] [address] 3313 02 Jul, 2017 Type 2 diabetes mellitus without complications E11.9 [facility] [address] [place] [address] 18033- 7028 Jun, Type 2 diabetes mellitus without complications E11.9 ; 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 and Acute idiopathic gout of left hand M10.042 [facility] [id number] [place] [address] 54127- 9632 Jun, Type 2 diabetes mellitus without complications E11.9 and 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 [facility] [id number] [place] [address] 60894- 2545 Jun, [facility] [id number] [place] [address] 77212- 4080 Jun, Type 2 diabetes mellitus without complications E11.9 [facility] [id number] [place] [address] 59884- 4588 Jun, [facility] [id number] [place] [address] 75527- 3152 Jun, Type 2 diabetes mellitus without complications E11.9 ; 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 and Acute idiopathic gout of left hand M10.042 [facility] [address], [place] [address] 7[address] May, [facility] [id number] [place] [address] 08883- 6210 May, Type 2 diabetes mellitus without complications E11.9 [facility] [id number] [place] [address] 69517- 7405 May, Post herpetic neuralgia B02.29 [facility] [id number] [place] [address] 81652- 5628 May, Type 2 diabetes mellitus without complications E11.9 [facility] [id number] [place] [address] 77073- 3882 Apr, Type 2 diabetes mellitus without complications E11.9 ; Chronic gout of multiple sites, unspecified cause M1A.09X0 and Anxiety F41.9 [place] [address] [address] Apr, [place] [id number] [place] [address] 12639- 7167 Apr, [place] [id number] [place] [address] 49747- 5441 Apr, Post herpetic neuralgia B02.29 [id number] [place] [address] 93612- 2731 Aug, Type 2 diabetes mellitus without complications E11.9 [place] [id number] [place] [address] 18135- 8053 14 Aug, 2016 Encounter to establish care Z76.89 ; Type 2 diabetes mellitus without complications E11.9 ; 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
--- OUTSIDE RECORDS SUMMARY | 2018-03-23 07:20 | XMS REPORT ---
Author Author ELIAS DOWNING Organization [facility] Address [address] [place] [address] Care Team Providers Care Music Education Adjunct Professor Name Role Phone ELIAS DOWNING Unavailable PROBLEMS Type Condition ICD9-CM Code CVN68-WD Code Onset Dates Condition Status SNOMED Code Problem senior living current use of insulin Z79.4 Active 386673179 Problem Coronary artery disease involving [place] coronary artery of [place] heart without angina pectoris I25.10 Active 2731358852398 Problem Type 2 diabetes mellitus without complications E11.9 Active 129191693 Problem Essential hypertension I10 Active 76291544 Problem PVD (peripheral vascular disease) I73.9 Active 292362003 Problem Anxiety F41.9 Active 04221754 Problem Systemic lupus erythematosus with other organ involvement, unspecified SLE type M32.19 Active 23145524 Problem Raynaud''s phenomenon without gangrene I73.00 Active 453399916 Problem Post herpetic neuralgia B02.29 Active 1543679 Problem Chronic gout of multiple sites, unspecified cause M1A.09X0 Active 85681647 Problem Arthritis M19.90 Active 7595682 Problem Hypertension, benign I10 Active 89843042 ALLERGIES Substance Reaction Event Type Date Status Codeine Sulfate nausea Drug Allergy May, Active ENCOUNTERS Encounter Location Date Diagnosis [facility] [id number] [address] 2[address] Feb, [facility] [id number] [address]- 6660 Dec, Essential hypertension I10 and Type 2 diabetes mellitus without complications E11.9 [facility] [id number] [address]- 4454 Nov, [facility] [id number] [address]- 9767 Nov, [facility] [id number] [place] [address] 00779- 7463 Oct, Type 2 diabetes mellitus without complications E11.9 ; Arthritis M19.90 and Systemic lupus erythematosus with other organ involvement, unspecified SLE type M32.19 [facility] [id number] [place] [address] 45240- 6078 Oct, [place] [address] 09100- 6323 Oct, Systemic lupus erythematosus with other organ involvement, unspecified SLE type M32.19 [place] [id number] [place] [address] 82918- 1603 Sep, [place] [id number] [place] [address] 44754- 2675 Sep, Type 2 diabetes mellitus without complications E11.9 ; Anxiety F41.9 ; Dysuria R30.0 and Hypertension, benign I10 [place] [id number] [place] [address] 05106- 5294 Sep, Type 2 diabetes mellitus without complications E11.9 [place] [id number] [place] [address] 52525- 8362 Sep, Systemic lupus erythematosus with other organ involvement, unspecified SLE type M32.19 [place] [id number] [place] [address] 19034- 1367 Sep, Post herpetic neuralgia B02.29 [place] [id number] [place] [address] 60910- 7211 Sep, Raynaud''s phenomenon without gangrene I73.00 [place] [address] 18974- 1111 Sep, [facility] [id number] [place] [address] 75355- 3500 Aug, [place] [address] 50347- 3896 Aug, Type 2 diabetes mellitus without complications E11.9 [facility] [id number] [address]- 7909 19 Aug, 2017 [facility] [id number] [place] [address] 68376- 3818 18 Aug, 2017 [facility] [id number] [place] [address] 71243- 2763 14 Aug, 2017 Type 2 diabetes mellitus without complications E11.9 [facility] [id number] [place] [address] 76227- 6124 14 Aug, 2017 Systemic lupus erythematosus with other organ involvement, unspecified SLE type M32.19 [facility] [id number] [place] [address] 68395- 8926 05 Aug, 2017 [facility] [id number] [place] [address] 29627- 0644 Jul, [facility] [id number] [place] [address] 44311- 5290 16 Jul, 2017 Raynaud''s phenomenon without gangrene I73.00 [facility] [id number] [place] [address] 36912- 0910 16 Jul, 2017 Dental examination Z01.20 [facility] [id number] [place] [address] 22185- 8408 13 Jul, 2017 Type 2 diabetes mellitus without complications E11.9 [facility] [id number] [place] [address] 45736- 4151 13 Jul, 2017 Raynaud''s phenomenon without gangrene I73.00 ; Arthritis M19.90 and Hypertension, benign I10 [facility] [id number] [place] [address] 75175- 1154 08 Jul, 2017 Type 2 diabetes mellitus without complications E11.9 [facility] [id number] [place] [address] 72142- 7926 08 Jul, 2017 [facility] [id number] [address]- 2371 Jul, [facility] [id number] [address]- 5134 Jul, Type 2 diabetes mellitus without complications E11.9 [facility] [id number] [address]- 1582 Jun, Type 2 diabetes mellitus without complications E11.9 ; senior living current use of insulin Z79.4 and Acute idiopathic gout of left hand M10.042 [facility] [id number] [address]- 1290 Jun, Type 2 diabetes mellitus without complications E11.9 and senior living current use of insulin Z79.4 [facility] [id number] [address]- 1616 Jun, [facility] [id number] [place] [address] 98403- 6422 Jun, Type 2 diabetes mellitus without complications E11.9 [facility] [address] [address]- 9952 Jun, [facility] [address] [address]- 9442 Jun, Type 2 diabetes mellitus without complications E11.9 ; senior living current use of insulin Z79.4 and Acute idiopathic gout of left hand M10.042 [facility] [address] [address]- 1649 May, [facility] [address] [address]- 4044 May, Type 2 diabetes mellitus without complications E11.9 [facility] [address] [address]- 6100 May, Post herpetic neuralgia B02.29 [facility] [address] [address]- 1674 May, Type 2 diabetes mellitus without complications E11.9 [place] [address] [address]- 0331 Apr, Type 2 diabetes mellitus without complications E11.9 ; Chronic gout of multiple sites, unspecified cause M1A.09X0 and Anxiety F41.9 [place] [address], [place] [address]- 5545 Apr, [place] [id number] [place] [address] 31598- 8865 Apr, [place] [id number] [place] [address] 12130- 3715 Apr, Post herpetic neuralgia B02.29 [place] [id number] [place] [address] 37460- 2767 Aug, Type 2 diabetes mellitus without complications E11.9 [place] [id number] [place] [address] 41167- 6343 14 Aug, 2016 Encounter to establish care Z76.89 ; Type 2 diabetes mellitus without complications E11.9 ; 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 ; Essential hypertension I10 ; Chronic gout of multiple sites, unspecified cause M1A.09X0 ; Coronary artery disease involving [place] coronary artery of [place] heart without angina pectoris I25.10 ; PVD (peripheral vascular disease) I73.9 ; Financial difficulties Z59.8 and Anxiety F41.9 [place] [id number] [place] [address] 59090- 7558 Aug, IMMUNIZATIONS No Known Immunizations SOCIAL HISTORY Never Assessed REASON FOR VISIT PALS PLAN OF CARE VITAL SIGNS MEDICATIONS Medication Instructions Dosage Frequency Start Date End Date Duration Status Tocarlos SoloStar 300 UNIT/ML Subcutaneous 2 times a day Inject 85 units 12h 14 Aug, 2016 90 days Active RESULTS No Results PROCEDURES [...]
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
--- OUTSIDE RECORDS SUMMARY | 2018-03-23 07:21 | XMS REPORT ---
Author Author ELIAS DOWNING Organization [facility] Address [address] [place] [address] Care Team Providers Care Fixing Carpenter Name Role Phone ELIAS DOWNING Unavailable PROBLEMS Type Condition ICD9-CM Code [id number] Code Onset Dates Condition Status SNOMED Code Problem Type 2 diabetes mellitus without complications E11.9 Active 138457444 Problem Chronic gout of multiple sites, unspecified cause M1A.09X0 Active 66698182 Problem Coronary artery disease involving napaimute coronary artery of napaimute heart without angina pectoris I25.10 Active 6441584675420 Problem Essential hypertension I10 Active 29779042 Problem PVD (peripheral vascular disease) I73.9 Active 539754683 Problem Anxiety F41.9 Active 41170738 Problem FCI current use of insulin Z79.4 Active 295866083 Problem Arm paresthesia, left R20.2 Active 77164125 Problem Systemic lupus erythematosus with other organ involvement, unspecified SLE type M32.19 Active 84809912 Problem Hypertension, benign I10 Active 65429349 Problem Post herpetic neuralgia B02.29 Active 9781823 Problem Raynaud''s phenomenon without gangrene I73.00 Active 414442886 Problem Arthritis M19.90 Active 7488730 ALLERGIES No Information ENCOUNTERS Encounter Location Date Diagnosis [facility] [address], [place] [address]- 4896 Apr, [facility] [address], [place] [address]- 9528 Feb, [facility] [address] [place] [address] 87975- 9627 Feb, Arm paresthesia, left R20.2 [facility] [id number], [place] [address]- 0227 Feb, [facility] [id number] [place] [address] 35130- 7931 Dec, Essential hypertension I10 and Type 2 diabetes mellitus without complications E11.9 [facility] [id number] [place] [address] 38370- 9539 Nov, [facility] [id number] [place] [address] 06484- 0620 Nov, [facility] [id number] [place] [address] 90620- 2702 Oct, Type 2 diabetes mellitus without complications E11.9 ; Arthritis M19.90 and Systemic lupus erythematosus with other organ involvement, unspecified SLE type M32.19 [facility] [id number] [place] [address] 55335- 5859 Oct, [facility] [id number] [place] [address] 40683- 4876 Oct, Systemic lupus erythematosus with other organ involvement, unspecified SLE type M32.19 [facility] [id number] [place] [address] 75064- 1649 Sep, [facility] [id number] [place] [address] 69938- 1617 Sep, Type 2 diabetes mellitus without complications E11.9 ; Anxiety F41.9 ; Dysuria R30.0 and Hypertension, benign I10 [facility] [id number] [place] [address] 10459- 4521 Sep, Type 2 diabetes mellitus without complications E11.9 [facility] [id number] [place] [address] 79329- 6187 Sep, Systemic lupus erythematosus with other organ involvement, unspecified SLE type M32.19 [facility] [id number] [place] [address] 42402- 0269 Sep, Post herpetic neuralgia B02.29 [facility] [id number] [place] [address] 18576- 6355 Sep, Raynaud''s phenomenon without gangrene I73.00 [facility] [address], [place] [address]- 8657 Sep, [facility] [address] [place] [address] 11463- 5801 Aug, [facility] [address] [place] [address] 35066- 6323 Aug, Type 2 diabetes mellitus without complications E11.9 [facility] [address] [place] [address] 41108- 4883 19 Aug, 2017 [facility] [id number] [place] [address] 41121- 0981 18 Aug, 2017 [facility] [id number] [place] [address] 41845- 4657 14 Aug, 2017 Type 2 diabetes mellitus without complications E11.9 [facility] [id number] [place] [address] 04814- 0282 14 Aug, 2017 Systemic lupus erythematosus with other organ involvement, unspecified SLE type M32.19 [facility] [address] [place] [address] 16552- 9074 05 Aug, 2017 [facility] [address] [place] [address] 18273- 2048 22 Jul, 2017 [facility] [address] [place] [address] 88628- 9558 16 Jul, 2017 Raynaud''s phenomenon without gangrene I73.00 [facility] [address], [place] [address]- 9382 16 Jul, 2017 Dental examination Z01.20 [facility] [address] [place] [address] 36027- 9026 13 Jul, 2017 Type 2 diabetes mellitus without complications E11.9 [facility] [address], [place] [address]- 8008 13 Jul, 2017 Raynaud''s phenomenon without gangrene I73.00 ; Arthritis M19.90 and Hypertension, benign I10 [facility] [id number] [place] [address] 93701- 9592 08 Jul, 2017 Type 2 diabetes mellitus without complications E11.9 [facility] [id number] [place] [address] 95478- 5136 08 Jul, 2017 [facility] [id number] [place] [address] 16748- 3486 Jul, [facility] [id number] [place] [address] 46019- 2799 Jul, Type 2 diabetes mellitus without complications E11.9 [facility] [id number] [place] [address] 58187- 4675 Jun, Type 2 diabetes mellitus without complications E11.9 ; 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 Z79.4 and Acute idiopathic gout of left hand M10.042 [facility] [id number] [place] [address] 84954- 1556 Jun, Type 2 diabetes mellitus without complications E11.9 and FCI current use of insulin Z79.4 [facility] [id number] [place] [address] 48212- 3477 Jun, [facility] [id number] [place] [address] 23443- 4820 Jun, Type 2 diabetes mellitus without complications E11.9 [facility] [id number] [place] [address] 56839- 9622 Jun, [facility] [address] [place] [address] 94493- 3767 Jun, Type 2 diabetes mellitus without complications E11.9 ; FCI current use of insulin Z79.4 and Acute idiopathic gout of left hand M10.042 [facility] [address] [address]- 9587 May, [facility] [id number] [place] [address] 84906- 8185 May, Type 2 diabetes mellitus without complications E11.9 [place] [address] [place] [address] 34613- 9371 May, Post herpetic neuralgia B02.29 [place] [address] [place] [address] 00391- 3701 May, Type 2 diabetes mellitus without complications E11.9 [place] [id number] [place] [address] 11474- 9822 Apr, Type 2 diabetes mellitus without complications E11.9 ; Chronic gout of multiple sites, unspecified cause M1A.09X0 and Anxiety F41.9 [place] [id number] [place] [address] 45948- 1387 Apr, [place] [id number] [place] [address] 33364- 6851 Apr, [place] [id number] [place] [address] 47530- 4394 Apr, Post herpetic neuralgia B02.29 [place] [address] [place] [address] 21021- 2888 Aug, Type 2 diabetes mellitus without complications E11.9 [place] [address] [place] [address] 07101- 9237 14 Aug, 2016 Encounter to establish care Z76.89 ; Type 2 diabetes mellitus without complications E11.9 ; FCI current use of insulin Z79.4 ; Essential hypertension I10 ; Chronic gout of multiple sites, unspecified cause M1A.09X0 ; Coronary artery disease involving napaimute coronary artery of napaimute heart without angina pectoris I25.10 ; PVD (peripheral vascular disease) I73.9 ; Financial difficulties Z59.8 and Anxiety F41.9 [place] [address] [address]- 6257 05 Aug, 2016 IMMUNIZATIONS No Known Immunizations [...]
--- OUTSIDE RECORDS SUMMARY | 2018-03-23 07:21 | XMS REPORT ---
Author Author ELIAS DOWNING Organization [facility] Address [address] [place] [address] Care Team Providers Care Inspector Aide Name Role Phone ELIAS DOWNING Unavailable PROBLEMS Type Condition ICD9-CM Code [id number] Code Onset Dates Condition Status SNOMED Code Problem Type 2 diabetes mellitus without complications E11.9 Active 799545150 Problem Chronic gout of multiple sites, unspecified cause M1A.09X0 Active 63273558 Problem Coronary artery disease involving [place] coronary artery of [place] heart without angina pectoris I25.10 Active [id number] Problem Essential hypertension I10 Active 86345339 Problem PVD (peripheral vascular disease) I73.9 Active 590790592 Problem Anxiety F41.9 Active 47524865 Problem care home current use of insulin Z79.4 Active 683132653 Problem Arm paresthesia, left R20.2 Active 75413321 Problem Systemic lupus erythematosus with other organ involvement, unspecified SLE type M32.19 Active 17190204 Problem Hypertension, benign I10 Active 02240446 Problem Post herpetic neuralgia B02.29 Active 8989924 Problem Raynaud''s phenomenon without gangrene I73.00 Active 279660563 Problem Arthritis M19.90 Active 3879069 ALLERGIES No Information ENCOUNTERS Encounter Location Date Diagnosis [facility] [address] [address] Apr, [facility] [address] [address] Feb, [facility] [address] [place] [address] 74085- 8347 Feb, Arm paresthesia, left R20.2 [facility] [id number] [address] 96[address] Feb, [facility] [id number] [place] [address] 15411- 1904 Dec, Essential hypertension I10 and Type 2 diabetes mellitus without complications E11.9 [facility] [id number] [place] [address] 81624- 3156 Nov, [facility] [id number] [place] [address] 59051- 7752 Nov, [facility] [id number] [place] [address] 03635- 3780 Oct, Type 2 diabetes mellitus without complications E11.9 ; Arthritis M19.90 and Systemic lupus erythematosus with other organ involvement, unspecified SLE type M32.19 [facility] [id number] [place] [address] 25625- 9754 Oct, [facility] [id number] [place] [address] 09783- 8011 Oct, Systemic lupus erythematosus with other organ involvement, unspecified SLE type M32.19 [facility] [id number] [place] [address] 83034- 8273 Sep, [facility] [id number] [place] [address] 38726- 4343 Sep, Type 2 diabetes mellitus without complications E11.9 ; Anxiety F41.9 ; Dysuria R30.0 and Hypertension, benign I10 [facility] [id number] [place] [address] 82891- 5541 Sep, Type 2 diabetes mellitus without complications E11.9 [facility] [id number] [place] [address] 94211- 4521 Sep, Systemic lupus erythematosus with other organ involvement, unspecified SLE type M32.19 [facility] [id number] [place] [address] 14494- 7143 Sep, Post herpetic neuralgia B02.29 [facility] [id number] [place] [address] 72624- 1374 Sep, Raynaud''s phenomenon without gangrene I73.00 [facility] [address] [address] 88[address] Sep, [facility] [address] [place] [address] 48554- 9585 Aug, [facility] [address] [place] [address] 53564- 9317 Aug, Type 2 diabetes mellitus without complications E11.9 [facility] [address] [place] [address] 70955- 5664 19 Aug, 2017 [facility] [id number] [place] [address] 43739- 3547 18 Aug, 2017 [facility] [id number] [place] [address] 15056- 7705 14 Aug, 2017 Type 2 diabetes mellitus without complications E11.9 [facility] [id number] [place] [address] 90313- 2060 14 Aug, 2017 Systemic lupus erythematosus with other organ involvement, unspecified SLE type M32.19 [facility] [address] [place] [address] 31715- 0693 05 Aug, 2017 [facility] [address] [place] [address] 45336- 2754 22 Jul, 2017 [facility] [address] [place] [address] 99223- 6129 16 Jul, 2017 Raynaud''s phenomenon without gangrene I73.00 [facility] [address] [address] 4859 16 Jul, 2017 Dental examination Z01.20 [facility] [address] [place] [address] 60530- 3764 13 Jul, 2017 Type 2 diabetes mellitus without complications E11.9 [facility] [address] [address]- 9318 13 Jul, 2017 Raynaud''s phenomenon without gangrene I73.00 ; Arthritis M19.90 and Hypertension, benign I10 [facility] [id number] [place] [address] 48987- 7630 08 Jul, 2017 Type 2 diabetes mellitus without complications E11.9 [facility] [id number] [place] [address] 48844- 1389 08 Jul, 2017 [facility] [id number] [place] [address] 89962- 8554 Jul, [facility] [id number] [place] [address] 13465- 9377 Jul, Type 2 diabetes mellitus without complications E11.9 [facility] [id number] [place] [address] 75961- 9626 Jun, Type 2 diabetes mellitus without complications E11.9 ; 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 and Acute idiopathic gout of left hand M10.042 [facility] [id number] [place] [address] 35310- 5239 Jun, Type 2 diabetes mellitus without complications E11.9 and care home current use of insulin Z79.4 [facility] [id number] [place] [address] 85003- 6394 Jun, [facility] [id number] [place] [address] 35598- 9861 Jun, Type 2 diabetes mellitus without complications E11.9 [facility] [id number] [place] [address] 89122- 8801 Jun, [facility] [address] [place] [address] 78174- 8458 Jun, Type 2 diabetes mellitus without complications E11.9 ; care home current use of insulin Z79.4 and Acute idiopathic gout of left hand M10.042 [facility] [address] [address]- 8851 May, [facility] [id number] [place] [address] 05087- 4965 May, Type 2 diabetes mellitus without complications E11.9 [place] [address] [place] [address] 67344- 5556 May, Post herpetic neuralgia B02.29 [place] [address] [place] [address] 83967- 4133 May, Type 2 diabetes mellitus without complications E11.9 [place] [id number] [place] [address] 31762- 0616 Apr, Type 2 diabetes mellitus without complications E11.9 ; Chronic gout of multiple sites, unspecified cause M1A.09X0 and Anxiety F41.9 [place] [id number] [place] [address] 24674- 7126 Apr, [place] [id number] [place] [address] 20677- 0262 Apr, [place] [id number] [place] [address] 34674- 3007 Apr, Post herpetic neuralgia B02.29 [place] [address] [place] [address] 93802- 3207 Aug, Type 2 diabetes mellitus without complications E11.9 [place] [address] [place] [address] 06520- 6420 14 Aug, 2016 Encounter to establish care Z76.89 ; Type 2 diabetes mellitus without complications E11.9 ; care home current use of insulin Z79.4 ; Essential hypertension I10 ; Chronic gout of multiple sites, unspecified cause M1A.09X0 ; Coronary artery disease involving [place] coronary artery of [place] heart without angina pectoris I25.10 ; PVD (peripheral vascular disease) I73.9 ; Financial difficulties Z59.8 and Anxiety F41.9 [place] [address] [address]- 2635 05 Aug, 2016 IMMUNIZATIONS No Known Immunizations SOCIAL HISTORY Never Assessed REASON FOR VISIT BS f/u PLAN OF CARE VITAL SIGNS MEDICATIONS Unknown [...]
--- OUTSIDE RECORDS SUMMARY | 2018-03-23 07:21 | XMS REPORT ---
Author Author ELIAS DOWNING Organization [facility] Address [address] [place] [address] Care Team Providers Care Densitometer Reader Name Role Phone ELIAS DOWNING Unavailable PROBLEMS Type Condition ICD9-CM Code ZGV63-SK Code Onset Dates Condition Status SNOMED Code Problem shelter current use of insulin Z79.4 Active 221727921 Problem Coronary artery disease involving [place] coronary artery of [place] heart without angina pectoris I25.10 Active 3583910175519 Problem Type 2 diabetes mellitus without complications E11.9 Active 460567544 Problem Essential hypertension I10 Active 52473672 Problem PVD (peripheral vascular disease) I73.9 Active 467209478 Problem Anxiety F41.9 Active 71566420 Problem Systemic lupus erythematosus with other organ involvement, unspecified SLE type M32.19 Active 70725391 Problem Raynaud''s phenomenon without gangrene I73.00 Active 866965867 Problem Post herpetic neuralgia B02.29 Active 8034770 Problem Chronic gout of multiple sites, unspecified cause M1A.09X0 Active 91251509 Problem Arthritis M19.90 Active 3586306 Problem Hypertension, benign I10 Active 73834217 ALLERGIES No Information ENCOUNTERS Encounter Location Date Diagnosis [facility] [id number], [place] [address]- 1869 Feb, [facility] [address] [place] [address] 37128- 4765 Dec, Essential hypertension I10 and Type 2 diabetes mellitus without complications E11.9 [facility] [address] [place] [address] 20041- 6950 Nov, [facility] [address] [place] [address] 46495- 3149 Nov, [facility] [address] [place] [address] 93176- 1550 Oct, Type 2 diabetes mellitus without complications E11.9 ; Arthritis M19.90 and Systemic lupus erythematosus with other organ involvement, unspecified SLE type M32.19 [place] [id number] [place] [address] 94719- 1121 Oct, [facility] [id number] [place] [address] 22120- 2073 Oct, Systemic lupus erythematosus with other organ involvement, unspecified SLE type M32.19 [facility] [id number] [place] [address] 37368- 0212 Sep, [place] [id number] [place] [address] 26035- 2879 Sep, Type 2 diabetes mellitus without complications E11.9 ; Anxiety F41.9 ; Dysuria R30.0 and Hypertension, benign I10 [place] [id number] [place] [address] 35015- 1836 Sep, Type 2 diabetes mellitus without complications E11.9 [place] [id number] [place] [address] 54706- 8499 Sep, Systemic lupus erythematosus with other organ involvement, unspecified SLE type M32.19 [place] [id number] [place] [address] 70597- 1425 Sep, Post herpetic neuralgia B02.29 [place] [id number] [place] [address] 57928- 8953 Sep, Raynaud''s phenomenon without gangrene I73.00 [place] [id number] [place] [address] 15239- 9273 Sep, [place] [id number] [place] [address] 05245- 8338 Aug, [place] [id number] [place] [address] 79337- 0009 Aug, Type 2 diabetes mellitus without complications E11.9 [place] [address] [place] [address] 05902- 6589 19 Aug, 2017 [facility] [id number] [place] [address] 90774- 5597 18 Aug, 2017 [facility] [id number] [place] [address] 53756- 4060 14 Aug, 2017 Type 2 diabetes mellitus without complications E11.9 [facility] [id number] [place] [address] 32387- 7416 14 Aug, 2017 Systemic lupus erythematosus with other organ involvement, unspecified SLE type M32.19 [facility] [id number] [place] [address] 07442- 8049 05 Aug, 2017 [facility] [id number] [place] [address] 53350- 9743 Jul, [facility] [id number] [place] [address] 25616- 3309 16 Jul, 2017 Raynaud''s phenomenon without gangrene I73.00 [facility] [id number] [place] [address] 78272- 1996 16 Jul, 2017 Dental examination Z01.20 [facility] [id number] [place] [address] 71117- 0357 13 Jul, 2017 Type 2 diabetes mellitus without complications E11.9 [facility] [id number] [place] [address] 70752- 6150 13 Jul, 2017 Raynaud''s phenomenon without gangrene I73.00 ; Arthritis M19.90 and Hypertension, benign I10 [facility] [id number] [place] [address] 15810- 6738 08 Jul, 2017 Type 2 diabetes mellitus without complications E11.9 [facility] [id number] [place] [address] 86650- 3371 08 Jul, 2017 [facility] [id number] [place] [address] 83424- 6952 Jul, [facility] [address], [place] [address]- 4981 02 Jul, 2017 Type 2 diabetes mellitus without complications E11.9 [facility] [address] [place] [address] 16697- 2172 Jun, Type 2 diabetes mellitus without complications E11.9 ; 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 and Acute idiopathic gout of left hand M10.042 [facility] [id number] [place] [address] 66550- 3321 Jun, Type 2 diabetes mellitus without complications E11.9 and 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 [facility] [id number] [place] [address] 58845- 5581 Jun, [facility] [id number] [place] [address] 53327- 8162 Jun, Type 2 diabetes mellitus without complications E11.9 [facility] [address] [place] [address] 28128- 3330 Jun, [facility] [id number] [place] [address] 42583- 7528 Jun, Type 2 diabetes mellitus without complications E11.9 ; 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 and Acute idiopathic gout of left hand M10.042 [facility] [address], [place] [address]- 2797 May, [facility] [address] [place] [address] 07623- 6728 May, Type 2 diabetes mellitus without complications E11.9 [facility] [address] [place] [address] 92707- 2171 May, Post herpetic neuralgia B02.29 [facility] [address] [place] [address] 26176- 6053 May, Type 2 diabetes mellitus without complications E11.9 [facility] [id number] [place] [address]- 2297 Apr, Type 2 diabetes mellitus without complications E11.9 ; Chronic gout of multiple sites, unspecified cause M1A.09X0 and Anxiety F41.9 [place] [address], [place] [address]- 4180 Apr, [place] [id number] [place] [address] 61509- 7130 Apr, [place] [id number] [place] [address] 98882- 8798 Apr, Post herpetic neuralgia B02.29 [id number] [place] [address] 26262- 2675 Aug, Type 2 diabetes mellitus without complications E11.9 [place] [id number] [place] [address] 75019- 0197 14 Aug, 2016 Encounter to establish care Z76.89 ; Type 2 diabetes mellitus without complications E11.9 ; 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
--- OUTSIDE RECORDS SUMMARY | 2018-03-23 07:21 | XMS REPORT ---
Author Author ELIAS DOWNING Organization [facility] Address [address] [place] [address] Care Team Providers Care Package Line Operator Name Role Phone ELIAS DOWNING Unavailable PROBLEMS Type Condition ICD9-CM Code GAG04-GW Code Onset Dates Condition Status SNOMED Code Problem Type 2 diabetes mellitus without complications E11.9 Active 506149403 Problem Chronic gout of multiple sites, unspecified cause M1A.09X0 Active 06549105 Problem Coronary artery disease involving white earth coronary artery of white earth heart without angina pectoris I25.10 Active 1466829840093 Problem Essential hypertension I10 Active 13341597 Problem PVD (peripheral vascular disease) I73.9 Active 218373008 Problem Anxiety F41.9 Active 27477454 Problem [facility] current use of insulin Z79.4 Active 567008014 Problem Arm paresthesia, left R20.2 Active 86107673 Problem Systemic lupus erythematosus with other organ involvement, unspecified SLE type M32.19 Active 70942853 Problem Hypertension, benign I10 Active 59798330 Problem Post herpetic neuralgia B02.29 Active 9912375 Problem Raynaud''s phenomenon without gangrene I73.00 Active 044483581 Problem Arthritis M19.90 Active 6165438 ALLERGIES No Information ENCOUNTERS Encounter Location Date Diagnosis [facility] [address] [address] Apr, [facility] [address], [place] [address] Feb, [facility] [id number] [place] [address] 63886- 2752 Feb, Arm paresthesia, left R20.2 [facility] [id number] [address] Feb, [facility] [id number] [place] [address] 57310- 0108 Dec, Essential hypertension I10 and Type 2 diabetes mellitus without complications E11.9 [facility] [id number] [place] [address] 32152- 1055 Nov, [facility] [id number] [place] [address] 82998- 3302 Nov, [facility] [id number] [place] [address] 16980- 8089 Oct, Type 2 diabetes mellitus without complications E11.9 ; Arthritis M19.90 and Systemic lupus erythematosus with other organ involvement, unspecified SLE type M32.19 [facility] [id number] [place] [address] 63893- 3731 Oct, [facility] [id number] [place] [address] 05019- 9814 Oct, Systemic lupus erythematosus with other organ involvement, unspecified SLE type M32.19 [facility] [id number] [place] [address] 93883- 2223 Sep, [facility] [id number] [place] [address] 46150- 3697 Sep, Type 2 diabetes mellitus without complications E11.9 ; Anxiety F41.9 ; Dysuria R30.0 and Hypertension, benign I10 [facility] [id number] [place] [address] 40097- 1356 Sep, Type 2 diabetes mellitus without complications E11.9 [facility] [id number] [place] [address] 83990- 5112 Sep, Systemic lupus erythematosus with other organ involvement, unspecified SLE type M32.19 [facility] [id number] [place] [address] 28814- 4814 Sep, Post herpetic neuralgia B02.29 [facility] [id number] [place] [address] 70308- 0957 Sep, Raynaud''s phenomenon without gangrene I73.00 [facility] [address], [place] [address] 68[address] Sep, [facility] [id number] [place] [address] 45429- 3465 Aug, [facility] [id number] [place] [address] 83702- 0629 Aug, Type 2 diabetes mellitus without complications E11.9 [facility] [id number] [place] [address] 02840- 9632 19 Aug, 2017 [facility] [id number] [place] [address] 58629- 9785 18 Aug, 2017 [facility] [id number] [place] [address] 25333- 1143 14 Aug, 2017 Type 2 diabetes mellitus without complications E11.9 [facility] [id number] [place] [address] 60768- 5670 14 Aug, 2017 Systemic lupus erythematosus with other organ involvement, unspecified SLE type M32.19 [facility] [id number] [place] [address] 53373- 7193 05 Aug, 2017 [facility] [id number] [place] [address] 84068- 4966 22 Jul, 2017 [facility] [id number] [place] [address] 63103- 8288 16 Jul, 2017 Raynaud''s phenomenon without gangrene I73.00 [facility] [address], [place] [address] 0599 16 Jul, 2017 Dental examination Z01.20 [facility] [id number] [place] [address] 64924- 1088 13 Jul, 2017 Type 2 diabetes mellitus without complications E11.9 [facility] [address], [place] [address] 5318 13 Jul, 2017 Raynaud''s phenomenon without gangrene I73.00 ; Arthritis M19.90 and Hypertension, benign I10 [facility] [id number] [place] [address] 00557- 5536 08 Jul, 2017 Type 2 diabetes mellitus without complications E11.9 [facility] [id number] [place] [address] 91359- 8129 08 Jul, 2017 [facility] [id number] [place] [address] 63839- 5700 Jul, [facility] [id number] [place] [address] 47898- 4542 Jul, Type 2 diabetes mellitus without complications E11.9 [facility] [id number] [place] [address] 31309- 9109 Jun, Type 2 diabetes mellitus without complications E11.9 ; 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 and Acute idiopathic gout of left hand M10.042 [facility] [id number] [place] [address] 29828- 8677 Jun, Type 2 diabetes mellitus without complications E11.9 and [facility] current use of insulin Z79.4 [facility] [id number] [place] [address] 49740- 0789 Jun, [facility] [id number] [place] [address] 30391- 3080 Jun, Type 2 diabetes mellitus without complications E11.9 [facility] [id number] [place] [address] 94744- 2880 Jun, [facility] [id number] [place] [address] 73609- 2977 Jun, Type 2 diabetes mellitus without complications E11.9 ; [facility] current use of insulin Z79.4 and Acute idiopathic gout of left hand M10.042 [facility] [address], [place] [address]- 4849 May, [facility] [id number] [place] [address] 94447- 6873 May, Type 2 diabetes mellitus without complications E11.9 [place] [id number] [place] [address] 36871- 0011 May, Post herpetic neuralgia B02.29 [place] [id number] [place] [address] 10362- 9469 May, Type 2 diabetes mellitus without complications E11.9 [place] [id number] [place] [address] 24644- 6870 Apr, Type 2 diabetes mellitus without complications E11.9 ; Chronic gout of multiple sites, unspecified cause M1A.09X0 and Anxiety F41.9 [place] [id number] [place] [address] 62793- 6580 Apr, [place] [id number] [place] [address] 78523- 0452 Apr, [place] [id number] [place] [address] 30491- 9031 Apr, Post herpetic neuralgia B02.29 [place] [id number] [place] [address] 46520- 7409 Aug, Type 2 diabetes mellitus without complications E11.9 [place] [address] [place] [address] 79466- 9434 14 Aug, 2016 Encounter to establish care Z76.89 ; Type 2 diabetes mellitus without complications E11.9 ; [facility] current use of insulin Z79.4 ; Essential hypertension I10 ; Chronic gout of multiple sites, unspecified cause M1A.09X0 ; Coronary artery disease involving white earth coronary artery of white earth heart without angina pectoris I25.10 ; PVD (peripheral vascular disease) I73.9 ; Financial difficulties Z59.8 and Anxiety F41.9 [place] [address], [place] [address]- 5902 05 Aug, 2016 IMMUNIZATIONS No Known Immunizations SOCIAL HISTORY Never Assessed REASON FOR VISIT PALS IN-Novolog FlexPen PLAN OF CARE VITAL SIGNS MEDICATIONS Unknown [...]
--- OUTSIDE RECORDS SUMMARY | 2018-03-23 07:22 | XMS REPORT ---
Author Author ELIAS DOWNING Organization [facility] Address [address] [place] [address] Care Team Providers Care Chief Executive Or Managing Director Name Role Phone ELIAS DOWNING Unavailable PROBLEMS Type Condition ICD9-CM Code JIL32-EC Code Onset Dates Condition Status SNOMED Code Problem [facility] current use of insulin Z79.4 Active 563819721 Problem Coronary artery disease involving huslia coronary artery of huslia heart without angina pectoris I25.10 Active 6109010457129 Problem Type 2 diabetes mellitus without complications E11.9 Active 767018178 Problem Essential hypertension I10 Active 81659350 Problem PVD (peripheral vascular disease) I73.9 Active 054609493 Problem Anxiety F41.9 Active 32210345 Problem Systemic lupus erythematosus with other organ involvement, unspecified SLE type M32.19 Active 45956075 Problem Raynaud''s phenomenon without gangrene I73.00 Active 334440760 Problem Post herpetic neuralgia B02.29 Active 5844787 Problem Chronic gout of multiple sites, unspecified cause M1A.09X0 Active 28328877 Problem Arthritis M19.90 Active 8568514 Problem Hypertension, benign I10 Active 16025204 ALLERGIES No Information ENCOUNTERS Encounter Location Date Diagnosis [facility] [id number], [place] [address]- 8674 Feb, [facility] [id number] [place] [address] 41059- 2969 Dec, Essential hypertension I10 and Type 2 diabetes mellitus without complications E11.9 [facility] [id number] [place] [address] 98433- 6849 Nov, [facility] [address], [place] [address]- 5257 Nov, [facility] [id number] [place] [address] 31818- 7478 Oct, Type 2 diabetes mellitus without complications E11.9 ; Arthritis M19.90 and Systemic lupus erythematosus with other organ involvement, unspecified SLE type M32.19 [place] [id number] [place] [address] 24037- 1022 Oct, [facility] [id number] [place] [address] 28251- 4970 Oct, Systemic lupus erythematosus with other organ involvement, unspecified SLE type M32.19 [facility] [id number] [place] [address] 78126- 4992 Sep, [place] [id number] [place] [address] 87997- 6708 Sep, Type 2 diabetes mellitus without complications E11.9 ; Anxiety F41.9 ; Dysuria R30.0 and Hypertension, benign I10 [place] [id number] [place] [address] 66279- 8435 Sep, Type 2 diabetes mellitus without complications E11.9 [place] [id number] [place] [address] 24215- 4109 Sep, Systemic lupus erythematosus with other organ involvement, unspecified SLE type M32.19 [place] [id number] [place] [address] 63711- 0495 Sep, Post herpetic neuralgia B02.29 [place] [id number] [place] [address] 35003- 9209 Sep, Raynaud''s phenomenon without gangrene I73.00 [place] [id number] [place] [address] 08249- 7543 Sep, [place] [id number] [place] [address] 59448- 6464 Aug, [place] [id number] [place] [address] 27467- 0964 Aug, Type 2 diabetes mellitus without complications E11.9 [place] [id number] [place] [address] 76738- 4854 19 Aug, 2017 [facility] [id number] [place] [address] 62207- 9298 18 Aug, 2017 [facility] [id number] [place] [address] 36642- 8046 14 Aug, 2017 Type 2 diabetes mellitus without complications E11.9 [facility] [id number] [place] [address] 57647- 6013 14 Aug, 2017 Systemic lupus erythematosus with other organ involvement, unspecified SLE type M32.19 [facility] [id number] [place] [address] 66324- 9895 05 Aug, 2017 [facility] [id number] [place] [address] 99030- 2360 Jul, [facility] [id number] [place] [address] 92329- 0035 16 Jul, 2017 Raynaud''s phenomenon without gangrene I73.00 [facility] [id number] [place] [address] 61179- 9338 16 Jul, 2017 Dental examination Z01.20 [facility] [id number] [place] [address] 08347- 4400 13 Jul, 2017 Type 2 diabetes mellitus without complications E11.9 [facility] [id number] [place] [address] 00560- 3509 13 Jul, 2017 Raynaud''s phenomenon without gangrene I73.00 ; Arthritis M19.90 and Hypertension, benign I10 [facility] [id number] [place] [address] 17551- 8995 08 Jul, 2017 Type 2 diabetes mellitus without complications E11.9 [facility] [id number] [place] [address] 31692- 0195 08 Jul, 2017 [facility] [id number] [place] [address] 10943- 2667 Jul, [facility] [address], [place] [address]- 9995 02 Jul, 2017 Type 2 diabetes mellitus without complications E11.9 [facility] [id number] [place] [address] 89309- 7699 Jun, Type 2 diabetes mellitus without complications E11.9 ; 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 and Acute idiopathic gout of left hand M10.042 [facility] [id number] [place] [address] 70837- 4061 Jun, Type 2 diabetes mellitus without complications E11.9 and 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 [facility] [id number] [place] [address] 34652- 7967 Jun, [facility] [id number] [place] [address] 83352- 9614 Jun, Type 2 diabetes mellitus without complications E11.9 [facility] [id number] [place] [address] 33796- 3975 Jun, [facility] [id number] [place] [address] 57273- 9927 Jun, Type 2 diabetes mellitus without complications E11.9 ; 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 and Acute idiopathic gout of left hand M10.042 [facility] [address], [place] [address]- 8527 May, [facility] [id number] [place] [address] 43460- 6613 May, Type 2 diabetes mellitus without complications E11.9 [facility] [id number] [place] [address] 43207- 4165 May, Post herpetic neuralgia B02.29 [facility] [id number] [place] [address] 16911- 8692 May, Type 2 diabetes mellitus without complications E11.9 [facility] [id number], [place] [address]- 5358 Apr, Type 2 diabetes mellitus without complications E11.9 ; Chronic gout of multiple sites, unspecified cause M1A.09X0 and Anxiety F41.9 [place] [address], [place] [address]- 4263 Apr, [place] [id number] [place] [address] 27763- 6545 Apr, [place] [id number] [place] [address] 56200- 9238 Apr, Post herpetic neuralgia B02.29 [place] [id number] [place] [address] 43324- 1004 Aug, Type 2 diabetes mellitus without complications E11.9 [place] [id number] [place] [address] 34601- 4611 14 Aug, 2016 Encounter to establish care Z76.89 ; Type 2 diabetes mellitus without complications E11.9 ; 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
--- OUTSIDE RECORDS SUMMARY | 2018-03-23 07:22 | XMS REPORT ---
Author Author ELIAS DOWNING Organization [facility] [place] Address [address] [place] [address] Care Team Providers Care Selling Underwriter Name Role Phone ELIAS DOWNING Unavailable PROBLEMS Type Condition ICD9-CM Code LBW38-SN Code Onset Dates Condition Status SNOMED Code Problem Type 2 diabetes mellitus without complications E11.9 Active 600338939 Problem Chronic gout of multiple sites, unspecified cause M1A.09X0 Active 76490026 Problem Coronary artery disease involving jackson coronary artery of jackson heart without angina pectoris I25.10 Active 1334454777929 Problem Essential hypertension I10 Active 18189954 Problem PVD (peripheral vascular disease) I73.9 Active 015203408 Problem Anxiety F41.9 Active 26744267 Problem correction current use of insulin Z79.4 Active 255355572 Problem Arm paresthesia, left R20.2 Active 53633679 Problem Systemic lupus erythematosus with other organ involvement, unspecified SLE type M32.19 Active 70932576 Problem Hypertension, benign I10 Active 76386834 Problem Post herpetic neuralgia B02.29 Active 3285391 Problem Raynaud''s phenomenon without gangrene I73.00 Active 704186416 Problem Arthritis M19.90 Active 1598265 ALLERGIES No Information ENCOUNTERS Encounter Location Date Diagnosis [facility] [place] [id number] [address] Apr, [facility] [place] [address] [address] Feb, [facility] [place] [id number] [place] [address]4479- 9251 Feb, [facility] [place] [id number] [address] Feb, Arm paresthesia, left R20.2 [facility] [place] [id number] [address] Feb, [facility] [place] [id number] [place] [address] 28430- 8290 Dec, Essential hypertension I10 and Type 2 diabetes mellitus without complications E11.9 [facility] [place] [id number] [place] [address] 40317- 3343 Nov, [facility] [place] [address] [address]- [address]99 Nov, [facility] [place] [id number] [place] [address] 41674- 1738 Oct, Type 2 diabetes mellitus without complications E11.9 ; Arthritis M19.90 and Systemic lupus erythematosus with other organ involvement, unspecified SLE type M32.19 [place] [id number] [place] [address] 47020- 1468 Oct, [facility] [place] [id number] [place] [address] 78826- 7340 Oct, Systemic lupus erythematosus with other organ involvement, unspecified SLE type M32.19 [place] [id number] [place] [address] 45313- 5542 Sep, [facility] [place] [id number] [place] [address] 61215- 1838 Sep, Type 2 diabetes mellitus without complications E11.9 ; Anxiety F41.9 ; Dysuria R30.0 and Hypertension, benign I10 [facility] [place] [id number] [place] [address] 32734- 8249 Sep, Type 2 diabetes mellitus without complications E11.9 [place] [id number] [place] [address] 94873- 2002 Sep, Systemic lupus erythematosus with other organ involvement, unspecified SLE type M32.19 [facility] [place] [id number] [place] [address] 01140- 9184 Sep, Post herpetic neuralgia B02.29 [place] [id number] [address] 6[address] 08 Sep, 2017 Raynaud''s phenomenon without gangrene I73.00 [facility] [place] [address] [address] 1701 03 Sep, 2017 [facility] [place] [id number] [place] [address] 97024- 8388 Aug, [facility] [place] [id number] [place] [address] 81890- 9250 Aug, Type 2 diabetes mellitus without complications E11.9 [facility] [place] [id number] [place] [address] 94119- 7209 19 Aug, 2017 [facility] [place] [id number] [place] [address] 50430- 1886 18 Aug, 2017 [facility] [place] [id number] [place] [address] 06821- 6196 14 Aug, 2017 Type 2 diabetes mellitus without complications E11.9 [facility] [place] [address] [address] 9252 14 Aug, 2017 Systemic lupus erythematosus with other organ involvement, unspecified SLE type M32.19 [facility] [place] [address] [address]- 5376 05 Aug, 2017 [facility] [place] [address] [address] 8346 Jul, [facility] [place] [address] [address] 9368 16 Jul, 2017 Raynaud''s phenomenon without gangrene I73.00 [facility] [place] [address] [place] [address] 32216- 8556 16 Jul, 2017 Dental examination Z01.20 [facility] [place] [address] [address]- 9188 13 Jul, 2017 Type 2 diabetes mellitus without complications E11.9 [facility] [place] [address] [address]- 2437 13 Jul, 2017 Raynaud''s phenomenon without gangrene I73.00 ; Arthritis M19.90 and Hypertension, benign I10 [facility] [place] [id number] [address]- 5544 08 Jul, 2017 Type 2 diabetes mellitus without complications E11.9 [facility] [place] [id number] [place] [address] 49586- 9000 08 Jul, 2017 [facility] [place] [id number] [place] [address] 51862- 4964 Jul, [facility] [place] [id number] [place] [address] 10623- 8814 Jul, Type 2 diabetes mellitus without complications E11.9 [facility] [place] [id number] [place] [address] 37988- 2189 Jun, Type 2 diabetes mellitus without complications E11.9 ; correction current use of insulin Z79.4 and Acute idiopathic gout of left hand M10.042 [facility] [place] [id number] [place] [address] 08277- 1640 27 Jun, 2017 Type 2 diabetes mellitus without complications E11.9 and eeg tech current use of insulin Z79.4 [place] [id number] [place] [address] 37399- 7114 Jun, [facility] [place] [id number] [place] [address] 47140- 0243 Jun, Type 2 diabetes mellitus without complications E11.9 [facility] [place] [id number] [place] [address] 38008- 4438 Jun, [facility] [place] [id number] [place] [address] 24049- 3109 Jun, Type 2 diabetes mellitus without complications E11.9 ; correction current use of insulin Z79.4 and Acute idiopathic gout of left hand M10.042 [facility] [place] [id number] [place] [address] 09937- 8101 May, [facility] [place] [address] [address]- 5471 May, Type 2 diabetes mellitus without complications E11.9 [facility] [place] [address] [address]- 0510 May, Post herpetic neuralgia B02.29 [facility] [place] [address] [address]- 1637 May, Type 2 diabetes mellitus without complications E11.9 [place] [address] [address]- 8596 Apr, Type 2 diabetes mellitus without complications E11.9 ; Chronic gout of multiple sites, unspecified cause M1A.09X0 and Anxiety F41.9 [place] [address] [address]- 0727 Apr, [place] [id number] [address]- 1027 Apr, [place] [address] [address]- 5272 Apr, Post herpetic neuralgia B02.29 [place] [address] [address]- 4259 Aug, Type 2 diabetes mellitus without complications E11.9 [place] [address] [address]- 8981 14 Aug, 2016 Encounter to establish care Z76.89 ; Type 2 diabetes mellitus without complications E11.9 ; eeg tech current use of insulin Z79.4 ; Essential hypertension I10 ; Chronic gout of multiple sites, unspecified cause M1A.09X0 ; Coronary artery disease involving jackson coronary artery of jackson heart without angina pectoris I25.10 ; PVD (peripheral vascular disease) I73.9 ; Financial difficulties Z59.8 and Anxiety F41.9 [place] [address] [address]- 0587 Aug, IMMUNIZATIONS No Known Immunizations SOCIAL HISTORY [...]
--- OUTSIDE RECORDS SUMMARY | 2018-03-23 07:22 | XMS REPORT ---
Author Author ELIAS DOWNING Organization [facility] Address [address] [place] [address] Care Team Providers Care Nail Expert Name Role Phone ELIAS DOWNING Unavailable PROBLEMS Type Condition ICD9-CM Code FYY49-PB Code Onset Dates Condition Status SNOMED Code Problem [facility] current use of insulin Z79.4 Active 676060915 Problem Coronary artery disease involving jamul coronary artery of jamul heart without angina pectoris I25.10 Active 0501669613406 Problem Type 2 diabetes mellitus without complications E11.9 Active 187845030 Problem Essential hypertension I10 Active 27337699 Problem PVD (peripheral vascular disease) I73.9 Active 797719112 Problem Anxiety F41.9 Active 70965200 Problem Systemic lupus erythematosus with other organ involvement, unspecified SLE type M32.19 Active 95546792 Problem Raynaud''s phenomenon without gangrene I73.00 Active 816905100 Problem Post herpetic neuralgia B02.29 Active 3259561 Problem Chronic gout of multiple sites, unspecified cause M1A.09X0 Active 62519367 Problem Arthritis M19.90 Active 1738541 Problem Hypertension, benign I10 Active 49727422 ALLERGIES Substance Reaction Event Type Date Status Codeine Sulfate nausea Drug Allergy May, Active ENCOUNTERS Encounter Location Date Diagnosis [facility] [id number], [place] [address]- 7943 Feb, [facility] [id number], [place] [address]- 3922 Dec, Essential hypertension I10 and Type 2 diabetes mellitus without complications E11.9 [facility] [id number], [place] [address]- 9677 Nov, [facility] [id number], [place] [address]- 5980 Nov, [facility] [id number] [place] [address] 90145- 0644 Oct, Type 2 diabetes mellitus without complications E11.9 ; Arthritis M19.90 and Systemic lupus erythematosus with other organ involvement, unspecified SLE type M32.19 [facility] [id number] [place] [address] 29718- 3887 Oct, [place] [address] [address]- 7006 Oct, Systemic lupus erythematosus with other organ involvement, unspecified SLE type M32.19 [place] [id number] [place] [address] 97296- 0215 Sep, [place] [id number] [place] [address] 74248- 5927 Sep, Type 2 diabetes mellitus without complications E11.9 ; Anxiety F41.9 ; Dysuria R30.0 and Hypertension, benign I10 [place] [id number] [place] [address] 75518- 2320 Sep, Type 2 diabetes mellitus without complications E11.9 [place] [id number] [place] [address] 55371- 3218 Sep, Systemic lupus erythematosus with other organ involvement, unspecified SLE type M32.19 [place] [id number] [place] [address] 50820- 4849 Sep, Post herpetic neuralgia B02.29 [place] [id number] [place] [address] 07932- 3179 Sep, Raynaud''s phenomenon without gangrene I73.00 [place] [address] 05371- 4895 Sep, [facility] [id number] [place] [address] 72216- 7360 Aug, [place] [address] 71318- 1441 Aug, Type 2 diabetes mellitus without complications E11.9 [facility] [address] [place] [address]- 4987 19 Aug, 2017 [facility] [id number] [place] [address] 15947- 6715 18 Aug, 2017 [facility] [id number] [place] [address] 37410- 7859 14 Aug, 2017 Type 2 diabetes mellitus without complications E11.9 [facility] [id number] [place] [address] 07081- 4591 14 Aug, 2017 Systemic lupus erythematosus with other organ involvement, unspecified SLE type M32.19 [facility] [id number] [place] [address] 90317- 3866 05 Aug, 2017 [facility] [id number] [place] [address] 23390- 9550 Jul, [facility] [id number] [place] [address] 31272- 4112 16 Jul, 2017 Raynaud''s phenomenon without gangrene I73.00 [facility] [id number] [place] [address] 71076- 5414 16 Jul, 2017 Dental examination Z01.20 [facility] [id number] [place] [address] 39454- 8479 13 Jul, 2017 Type 2 diabetes mellitus without complications E11.9 [facility] [id number] [place] [address] 91153- 2280 13 Jul, 2017 Raynaud''s phenomenon without gangrene I73.00 ; Arthritis M19.90 and Hypertension, benign I10 [facility] [id number] [place] [address] 57624- 7108 08 Jul, 2017 Type 2 diabetes mellitus without complications E11.9 [facility] [id number] [place] [address] 48216- 6160 08 Jul, 2017 [facility] [address], [place] [address]- 3842 Jul, [facility] [id number], [place] [address]- 2228 Jul, Type 2 diabetes mellitus without complications E11.9 [facility] [id number], [place] [address]- 2748 Jun, Type 2 diabetes mellitus without complications E11.9 ; [facility] current use of insulin Z79.4 and Acute idiopathic gout of left hand M10.042 [facility] [id number], [place] [address]- 1336 Jun, Type 2 diabetes mellitus without complications E11.9 and [facility] current use of insulin Z79.4 [facility] [id number], [place] [address]- 7584 Jun, [facility] [address] [place] [address] 90106- 0275 Jun, Type 2 diabetes mellitus without complications E11.9 [facility] [address], [place] [address]- 9887 Jun, [facility] [address], [place] [address]- 5959 Jun, Type 2 diabetes mellitus without complications E11.9 ; [facility] current use of insulin Z79.4 and Acute idiopathic gout of left hand M10.042 [facility] [address], [place] [address]- 7103 May, [facility] [address], [place] [address]- 5937 May, Type 2 diabetes mellitus without complications E11.9 [facility] [address], [place] [address]- 6554 May, Post herpetic neuralgia B02.29 [facility] [address], [place] [address]- 9275 May, Type 2 diabetes mellitus without complications E11.9 [place] [address], [place] [address]- 2833 Apr, Type 2 diabetes mellitus without complications E11.9 ; Chronic gout of multiple sites, unspecified cause M1A.09X0 and Anxiety F41.9 [place] [address], [place] [address]- 9555 Apr, [place] [id number] [place] [address] 35903- 7367 Apr, [place] [id number] [place] [address] 32695- 8702 Apr, Post herpetic neuralgia B02.29 [place] [id number] [place] [address] 54509- 0694 Aug, Type 2 diabetes mellitus without complications E11.9 [place] [id number] [place] [address] 58919- 4239 14 Aug, 2016 Encounter to establish care Z76.89 ; Type 2 diabetes mellitus without complications E11.9 ; [facility] current use of insulin Z79.4 ; Essential hypertension I10 ; Chronic gout of multiple sites, unspecified cause M1A.09X0 ; Coronary artery disease involving jamul coronary artery of jamul heart without angina pectoris I25.10 ; PVD (peripheral vascular disease) I73.9 ; Financial difficulties Z59.8 and Anxiety F41.9 [place] [address] [place] [address] 09465- 7459 Aug, IMMUNIZATIONS No Known Immunizations SOCIAL HISTORY Never Assessed REASON FOR VISIT Repository Refill Request PLAN OF CARE VITAL SIGNS MEDICATIONS Medication Instructions Dosage Frequency Start Date End Date Duration Status Celebrex 200 MG Orally twice a day 1 capsule with food 12h 30 days Active RESULTS No Results PROCEDURES No [...]
--- OUTSIDE RECORDS SUMMARY | 2018-03-23 07:22 | XMS REPORT ---
Author Author ELIAS DOWNING Organization [facility] Address [address] [place] [address] Care Team Providers Care Customer Engineering Specialist Name Role Phone ELIAS DOWNING Unavailable PROBLEMS Type Condition ICD9-CM Code [id number] Code Onset Dates Condition Status SNOMED Code Problem [facility] current use of insulin Z79.4 Active 559242326 Problem Coronary artery disease involving [place] coronary artery of [place] heart without angina pectoris I25.10 Active [id number] Problem Type 2 diabetes mellitus without complications E11.9 Active 121530374 Problem Essential hypertension I10 Active 23089710 Problem PVD (peripheral vascular disease) I73.9 Active 021284236 Problem Anxiety F41.9 Active 93250275 Problem Systemic lupus erythematosus with other organ involvement, unspecified SLE type M32.19 Active 22391437 Problem Raynaud''s phenomenon without gangrene I73.00 Active 399710738 Problem Post herpetic neuralgia B02.29 Active 2574152 Problem Chronic gout of multiple sites, unspecified cause M1A.09X0 Active 35202326 Problem Arthritis M19.90 Active 1676547 Problem Hypertension, benign I10 Active 26443776 ALLERGIES Substance Reaction Event Type Date Status Codeine Sulfate nausea Drug Allergy Jun, Active ENCOUNTERS Encounter Location Date Diagnosis [facility] [id number] [address] Feb, [facility] [id number] [address] Dec, Essential hypertension I10 and Type 2 diabetes mellitus without complications E11.9 [facility] [id number] [address] Nov, [facility] [id number] [address] Nov, [facility] [id number] [place] [address] 49811- 9068 Oct, Type 2 diabetes mellitus without complications E11.9 ; Arthritis M19.90 and Systemic lupus erythematosus with other organ involvement, unspecified SLE type M32.19 [facility] [id number] [place] [address]50- 2501 Oct, [place] [address] [address]- [address] Oct, Systemic lupus erythematosus with other organ involvement, unspecified SLE type M32.19 [place] [id number] [place] [address] 70536- 6171 Sep, [place] [id number] [place] [address] 81453- 4595 Sep, Type 2 diabetes mellitus without complications E11.9 ; Anxiety F41.9 ; Dysuria R30.0 and Hypertension, benign I10 [place] [id number] [place] [address] 36912- 8256 Sep, Type 2 diabetes mellitus without complications E11.9 [place] [id number] [place] [address] 00333- 8336 Sep, Systemic lupus erythematosus with other organ involvement, unspecified SLE type M32.19 [place] [id number] [place] [address] 11746- 3489 Sep, Post herpetic neuralgia B02.29 [place] [id number] [place] [address] 49631- 0568 Sep, Raynaud''s phenomenon without gangrene I73.00 [place] [address] 15086- 9861 Sep, [facility] [id number] [place] [address] 45681- 1655 Aug, [place] [address] 05503- 7039 Aug, Type 2 diabetes mellitus without complications E11.9 [facility] [id number], [place] [address] 19 Aug, 2017 [facility] [id number] [place] [address] 68799- 6841 18 Aug, 2017 [facility] [id number] [place] [address] 01914- 4635 14 Aug, 2017 Type 2 diabetes mellitus without complications E11.9 [facility] [id number] [place] [address] 24453- 6188 14 Aug, 2017 Systemic lupus erythematosus with other organ involvement, unspecified SLE type M32.19 [facility] [id number] [place] [address] 28743- 7033 05 Aug, 2017 [facility] [id number] [place] [address] 97102- 2176 Jul, [facility] [id number] [place] [address] 41231- 4170 16 Jul, 2017 Raynaud''s phenomenon without gangrene I73.00 [facility] [id number] [place] [address] 61272- 5319 16 Jul, 2017 Dental examination Z01.20 [facility] [id number] [place] [address] 15383- 2929 13 Jul, 2017 Type 2 diabetes mellitus without complications E11.9 [facility] [id number] [place] [address] 60835- 1850 13 Jul, 2017 Raynaud''s phenomenon without gangrene I73.00 ; Arthritis M19.90 and Hypertension, benign I10 [facility] [id number] [place] [address] 58470- 8592 08 Jul, 2017 Type 2 diabetes mellitus without complications E11.9 [facility] [id number] [place] [address] 45889- 9134 08 Jul, 2017 [facility] [id number], [place] [address] Jul, [facility] [id number], [place] [address] Jul, Type 2 diabetes mellitus without complications E11.9 [facility] [id number], [place] [address] Jun, Type 2 diabetes mellitus without complications E11.9 ; [facility] current use of insulin Z79.4 and Acute idiopathic gout of left hand M10.042 [facility] [id number], [place] [address] Jun, Type 2 diabetes mellitus without complications E11.9 and [facility] current use of insulin Z79.4 [facility] [id number], [place] [address] Jun, [facility] [address] [place] [address] 98840- 4276 Jun, Type 2 diabetes mellitus without complications E11.9 [facility] [address], [place] [address] Jun, [facility] [address], [place] [address] 94[address] Jun, Type 2 diabetes mellitus without complications E11.9 ; [facility] current use of insulin Z79.4 and Acute idiopathic gout of left hand M10.042 [facility] [address], [place] [address] May, [facility] [address], [place] [address] 3[address] May, Type 2 diabetes mellitus without complications E11.9 [facility] [address], [place] [address] May, Post herpetic neuralgia B02.29 [facility] [address], [place] [address] 07[address] May, Type 2 diabetes mellitus without complications E11.9 [place] [address], [place] [address] Apr, Type 2 diabetes mellitus without complications E11.9 ; Chronic gout of multiple sites, unspecified cause M1A.09X0 and Anxiety F41.9 [place] [address], [place] [address] Apr, [place] [id number] [place] [address] 12962- 8746 Apr, [place] [id number] [place] [address] 49153- 1196 Apr, Post herpetic neuralgia B02.29 [place] [id number] [place] [address] 06487- 1324 Aug, Type 2 diabetes mellitus without complications E11.9 [place] [id number] [place] [address] 98067- 4048 14 Aug, 2016 Encounter to establish care Z76.89 ; Type 2 diabetes mellitus without complications E11.9 ; 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 ; Essential hypertension I10 ; Chronic gout of multiple sites, unspecified cause M1A.09X0 ; Coronary artery disease involving [place] coronary artery of [place] heart without angina pectoris I25.10 ; PVD (peripheral vascular disease) I73.9 ; Financial difficulties Z59.8 and Anxiety F41.9 [place] [address] [place] [address] 64478- 0450 Aug, IMMUNIZATIONS No Known Immunizations SOCIAL HISTORY Never Assessed REASON FOR VISIT PALS PLAN OF CARE VITAL SIGNS MEDICATIONS Medication Instructions Dosage Frequency Start Date End Date Duration Status Tresiba FlexTouch 200 UNIT/ML Subcutaneous Once a day inject 170 units 24h Jun, 90 days Active RESULTS No Results PROCEDURES [...]
--- OUTSIDE RECORDS SUMMARY | 2018-03-23 07:22 | XMS REPORT ---
Author Author ELIAS DOWNING Organization [facility] Address [address] [place] [address] Care Team Providers Care Retail Department Supervisor Name Role Phone ELIAS DOWNING Unavailable PROBLEMS Type Condition ICD9-CM Code AFF35-PF Code Onset Dates Condition Status SNOMED Code Problem senior care current use of insulin Z79.4 Active 196303965 Problem Coronary artery disease involving [place] coronary artery of [place] heart without angina pectoris I25.10 Active 7807114320976 Problem Type 2 diabetes mellitus without complications E11.9 Active 725236163 Problem Essential hypertension I10 Active 70913438 Problem PVD (peripheral vascular disease) I73.9 Active 204298959 Problem Anxiety F41.9 Active 70038236 Problem Systemic lupus erythematosus with other organ involvement, unspecified SLE type M32.19 Active 56262872 Problem Raynaud''s phenomenon without gangrene I73.00 Active 485583443 Problem Post herpetic neuralgia B02.29 Active 3910478 Problem Chronic gout of multiple sites, unspecified cause M1A.09X0 Active 52084128 Problem Arthritis M19.90 Active 7338815 Problem Hypertension, benign I10 Active 47828259 ALLERGIES No Information ENCOUNTERS Encounter Location Date Diagnosis [facility] [id number] [address] Feb, [facility] [id number] [place] [address] 55343- 4662 Dec, Essential hypertension I10 and Type 2 diabetes mellitus without complications E11.9 [facility] [address] [place] [address] 17129- 5475 Nov, [facility] [address] [address]- 4234 Nov, [facility] [id number] [place] [address] 07190- 5085 Oct, Type 2 diabetes mellitus without complications E11.9 ; Arthritis M19.90 and Systemic lupus erythematosus with other organ involvement, unspecified SLE type M32.19 [place] [id number] [place] [address] 05196- 5590 Oct, [facility] [id number] [place] [address] 48735- 5555 Oct, Systemic lupus erythematosus with other organ involvement, unspecified SLE type M32.19 [facility] [id number] [place] [address] 32683- 6496 Sep, [place] [id number] [place] [address] 22651- 1981 Sep, Type 2 diabetes mellitus without complications E11.9 ; Anxiety F41.9 ; Dysuria R30.0 and Hypertension, benign I10 [place] [id number] [place] [address] 85551- 2703 Sep, Type 2 diabetes mellitus without complications E11.9 [place] [id number] [place] [address] 74285- 9372 Sep, Systemic lupus erythematosus with other organ involvement, unspecified SLE type M32.19 [place] [id number] [place] [address] 20476- 9116 Sep, Post herpetic neuralgia B02.29 [place] [id number] [place] [address] 61558- 5144 Sep, Raynaud''s phenomenon without gangrene I73.00 [place] [id number] [place] [address] 92493- 6131 Sep, [place] [id number] [place] [address] 16385- 7846 Aug, [place] [id number] [place] [address] 56349- 2420 Aug, Type 2 diabetes mellitus without complications E11.9 [place] [id number] [place] [address] 95193- 2433 19 Aug, 2017 [facility] [id number] [place] [address] 94975- 3880 18 Aug, 2017 [facility] [id number] [place] [address] 38423- 5021 14 Aug, 2017 Type 2 diabetes mellitus without complications E11.9 [facility] [id number] [place] [address] 89617- 1839 14 Aug, 2017 Systemic lupus erythematosus with other organ involvement, unspecified SLE type M32.19 [facility] [id number] [place] [address] 09897- 9802 05 Aug, 2017 [facility] [id number] [place] [address] 77413- 8228 Jul, [facility] [id number] [place] [address] 22713- 9360 16 Jul, 2017 Raynaud''s phenomenon without gangrene I73.00 [facility] [id number] [place] [address] 10312- 8733 16 Jul, 2017 Dental examination Z01.20 [facility] [id number] [place] [address] 32030- 1968 13 Jul, 2017 Type 2 diabetes mellitus without complications E11.9 [facility] [id number] [place] [address] 54363- 0173 13 Jul, 2017 Raynaud''s phenomenon without gangrene I73.00 ; Arthritis M19.90 and Hypertension, benign I10 [facility] [id number] [place] [address] 91346- 7579 08 Jul, 2017 Type 2 diabetes mellitus without complications E11.9 [facility] [id number] [place] [address] 86439- 7367 08 Jul, 2017 [facility] [id number] [place] [address] 81991- 5647 Jul, [facility] [address] [address]- 7001 02 Jul, 2017 Type 2 diabetes mellitus without complications E11.9 [facility] [id number] [place] [address] 29155- 9723 Jun, Type 2 diabetes mellitus without complications E11.9 ; 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 and Acute idiopathic gout of left hand M10.042 [facility] [id number] [place] [address] 48410- 1108 Jun, Type 2 diabetes mellitus without complications E11.9 and 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 [facility] [id number] [place] [address] 82069- 7637 Jun, [facility] [id number] [place] [address] 39791- 9000 Jun, Type 2 diabetes mellitus without complications E11.9 [facility] [id number] [place] [address] 53682- 0183 Jun, [facility] [id number] [place] [address] 08330- 4055 Jun, Type 2 diabetes mellitus without complications E11.9 ; 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 and Acute idiopathic gout of left hand M10.042 [facility] [address], [place] [address]- 2787 May, [facility] [id number] [place] [address] 83448- 3733 May, Type 2 diabetes mellitus without complications E11.9 [facility] [id number] [place] [address] 23292- 5306 May, Post herpetic neuralgia B02.29 [facility] [id number] [place] [address] 66180- 4362 May, Type 2 diabetes mellitus without complications E11.9 [facility] [id number] [address]- 7600 Apr, Type 2 diabetes mellitus without complications E11.9 ; Chronic gout of multiple sites, unspecified cause M1A.09X0 and Anxiety F41.9 [place] [address] [address]- 7366 Apr, [place] [id number] [place] [address] 64628- 9747 Apr, [place] [id number] [place] [address] 86880- 7605 Apr, Post herpetic neuralgia B02.29 [place] [id number] [place] [address] 12059- 4470 Aug, Type 2 diabetes mellitus without complications E11.9 [place] [id number] [place] [address] 80239- 6893 14 Aug, 2016 Encounter to establish care Z76.89 ; Type 2 diabetes mellitus without complications E11.9 ; 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 ; Essential hypertension I10 ; Chronic gout of multiple sites, unspecified cause M1A.09X0 ; Coronary artery disease involving [place] coronary artery of [place] heart without angina pectoris I25.10 ; PVD (peripheral vascular disease) I73.9 ; Financial difficulties Z59.8 and Anxiety F41.9 [place] [address], [place] [address]- 9964 Aug, IMMUNIZATIONS No Known Immunizations SOCIAL HISTORY Never Assessed REASON FOR VISIT Requests return call PLAN OF CARE VITAL SIGNS MEDICATIONS Medication Instructions Dosage Frequency Start Date End Date Duration Status Toulexi SoloStar 300 UNIT/ML Subcutaneous Once a day Inject 170 units 24h Aug, Active RESULTS No Results PROCEDURES No Known [...]
--- OUTSIDE RECORDS SUMMARY | 2018-03-23 07:22 | XMS REPORT ---
Author Author ELIAS DOWNING Organization [facility] Address [address] [place] [address] Care Team Providers Care Table Games Dual Rate Supervisor Name Role Phone ELIAS DOWNING Unavailable PROBLEMS Type Condition ICD9-CM Code DFX36-MG Code Onset Dates Condition Status SNOMED Code Problem Type 2 diabetes mellitus without complications E11.9 Active 874968347 Problem Chronic gout of multiple sites, unspecified cause M1A.09X0 Active 90229311 Problem Coronary artery disease involving the [place] coronary artery of [place] heart without angina pectoris I25.10 Active 5230864181278 Problem Essential hypertension I10 Active 24308704 Problem PVD (peripheral vascular disease) I73.9 Active 917945028 Problem Anxiety F41.9 Active 76066625 Problem correction current use of insulin Z79.4 Active 886532894 Problem Arm paresthesia, left R20.2 Active 33793349 Problem Systemic lupus erythematosus with other organ involvement, unspecified SLE type M32.19 Active 38832806 Problem Hypertension, benign I10 Active 92402949 Problem Post herpetic neuralgia B02.29 Active 2063596 Problem Raynaud''s phenomenon without gangrene I73.00 Active 478187877 Problem Arthritis M19.90 Active 6513180 ALLERGIES No Information ENCOUNTERS Encounter Location Date Diagnosis [facility] [address], [place] [address] Apr, [facility] [address], [place] [address] Feb, [facility] [id number] [place] [address] 50571- 0329 Feb, [facility] [id number], [place] [address]88 Feb, Arm paresthesia, left R20.2 [facility] [id number] [address]279 Feb, [facility] [id number] [place] [address] 56819- 8837 Dec, Essential hypertension I10 and Type 2 diabetes mellitus without complications E11.9 [facility] [id number] [place] [address] 04623- 4689 Nov, [facility] [address] [address]- 1818 Nov, [facility] [id number] [place] [address] 84235- 3857 Oct, Type 2 diabetes mellitus without complications E11.9 ; Arthritis M19.90 and Systemic lupus erythematosus with other organ involvement, unspecified SLE type M32.19 [place] [id number] [place] [address] 59215- 7574 Oct, [facility] [id number] [place] [address] 17741- 9154 Oct, Systemic lupus erythematosus with other organ involvement, unspecified SLE type M32.19 [place] [id number] [place] [address] 47516- 0173 Sep, [facility] [id number] [place] [address] 92148- 5236 Sep, Type 2 diabetes mellitus without complications E11.9 ; Anxiety F41.9 ; Dysuria R30.0 and Hypertension, benign I10 [facility] [address] [place] [address] 32836- 8766 Sep, Type 2 diabetes mellitus without complications E11.9 [place] [id number] [place] [address] 21248- 6429 Sep, Systemic lupus erythematosus with other organ involvement, unspecified SLE type M32.19 [facility] [address] [place] [address] 16452- 9906 Sep, Post herpetic neuralgia B02.29 [place] [address], [place] [address]- 83[address] 08 Sep, 2017 Raynaud''s phenomenon without gangrene I73.00 [facility] [address], [place] [address]- 5113 03 Sep, 2017 [facility] [address] [place] [address] 47516- 5392 Aug, [facility] [id number] [place] [address] 77395- 7691 Aug, Type 2 diabetes mellitus without complications E11.9 [facility] [id number] [place] [address] 40084- 9406 19 Aug, 2017 [facility] [id number] [place] [address] 78276- 1872 18 Aug, 2017 [facility] [id number] [place] [address] 82328- 5932 14 Aug, 2017 Type 2 diabetes mellitus without complications E11.9 [facility] [address], [place] [address]- 0290 14 Aug, 2017 Systemic lupus erythematosus with other organ involvement, unspecified SLE type M32.19 [facility] [address], [place] [address]- 6825 05 Aug, 2017 [facility] [address], [place] [address]- 95[address] Jul, [facility] [address], [place] [address]- 2333 16 Jul, 2017 Raynaud''s phenomenon without gangrene I73.00 [facility] [address] [place] [address] 49289- 4946 16 Jul, 2017 Dental examination Z01.20 [facility] [address], [place] [address]- 7573 13 Jul, 2017 Type 2 diabetes mellitus without complications E11.9 [facility] [address], [place] [address]- 3333 13 Jul, 2017 Raynaud''s phenomenon without gangrene I73.00 ; Arthritis M19.90 and Hypertension, benign I10 [facility] [address] [address]- 8346 08 Jul, 2017 Type 2 diabetes mellitus without complications E11.9 [facility] [id number] [place] [address] 54028- 0492 08 Jul, 2017 [facility] [id number] [place] [address] 57710- 5185 Jul, [facility] [id number] [place] [address] 42849- 2533 Jul, Type 2 diabetes mellitus without complications E11.9 [facility] [id number] [place] [address] 59518- 7213 Jun, Type 2 diabetes mellitus without complications E11.9 ; correction current use of insulin Z79.4 and Acute idiopathic gout of left hand M10.042 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 [id number] [place] [address] 02040- 6281 Jun, Type 2 diabetes mellitus without complications E11.9 [facility] [address] [place] [address] 86035- 7268 Jun, [facility] [id number] [place] [address] 49908- 4671 Jun, Type 2 diabetes mellitus without complications E11.9 ; correction current use of insulin Z79.4 and Acute idiopathic gout of left hand M10.042 [facility] [id number] [place] [address] 34971- 5919 May, [facility] [address], [place] [address]- 9702 May, Type 2 diabetes mellitus without complications E11.9 [facility] [address], [place] [address]- 1568 May, Post herpetic neuralgia B02.29 [facility] [address], [place] [address]- 0313 May, Type 2 diabetes mellitus without complications E11.9 [place] [address], [place] [address]- 8721 Apr, Type 2 diabetes mellitus without complications E11.9 ; Chronic gout of multiple sites, unspecified cause M1A.09X0 and Anxiety F41.9 [place] [address], [place] [address]- 7256 Apr, [place] [address], [place] [address]- 3609 Apr, [place] [address], [place] [address]- 7463 Apr, Post herpetic neuralgia B02.29 [place] [address], [place] [address]- 6806 Aug, Type 2 diabetes mellitus without complications E11.9 [place] [address], [place] [address]- 3947 14 Aug, 2016 Encounter to establish care Z76.89 ; Type 2 diabetes mellitus without complications E11.9 ; 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 ; Essential hypertension I10 ; Chronic gout of multiple sites, unspecified cause M1A.09X0 ; Coronary artery disease involving [place] coronary artery of [place] heart without angina pectoris I25.10 ; PVD (peripheral vascular disease) I73.9 ; Financial difficulties Z59.8 and Anxiety F41.9 [place] [address], [place] [address]- 7602 Aug, IMMUNIZATIONS No Known Immunizations SOCIAL HISTORY Never Assessed REASON FOR VISIT Medication refill request PLAN OF CARE VITAL SIGNS MEDICATIONS Medication Instructions Dosage Frequency Start Date End Date Duration Status VESIcare 5 mg Orally Once a day 1 tablet 24h Sep, Nov, 30 day(s) Active RESULTS No Results PROCEDURES No Known [...]
--- OUTSIDE RECORDS SUMMARY | 2018-03-23 07:22 | XMS REPORT ---
Author Author EDY MOFFETT [facility] Address [address] [place] [address] Care Team Providers Care Ppa Teacher Name Role Phone EDY MOFFETT Unavailable PROBLEMS Type Condition ICD9-CM Code CLB08-UA Code Onset Dates Condition Status SNOMED Code Problem PVD (peripheral vascular disease) I73.9 Active 266932726 Problem Anxiety F41.9 Active 85181351 Problem Post herpetic neuralgia B02.29 Active 6033392 Problem Type 2 diabetes mellitus without complications E11.9 Active 629169326 Problem Chronic gout of multiple sites, unspecified cause M1A.09X0 Active 23914990 Problem Coronary artery disease involving [place] coronary artery of [place] heart without angina pectoris I25.10 Active 5988636364149 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
--- OUTSIDE RECORDS SUMMARY | 2018-03-23 07:23 | XMS REPORT ---
Author Author ELIAS DOWNING Organization [facility] Address [address] [place] [address] Care Team Providers Care Staff Certified Nurse Midwife Name Role Phone ELIAS DOWNING Unavailable PROBLEMS Type Condition ICD9-CM Code IOV59-DZ Code Onset Dates Condition Status SNOMED Code Problem Type 2 diabetes mellitus without complications E11.9 Active 455956307 Problem Chronic gout of multiple sites, unspecified cause M1A.09X0 Active 64707022 Problem Coronary artery disease involving [place] coronary artery of [place] heart without angina pectoris I25.10 Active 1853920073541 Problem Essential hypertension I10 Active 38848006 Problem PVD (peripheral vascular disease) I73.9 Active 533359522 Problem Anxiety F41.9 Active 92593233 Problem penitentiary current use of insulin Z79.4 Active 347021154 Problem Arm paresthesia, left R20.2 Active 68775226 Problem Systemic lupus erythematosus with other organ involvement, unspecified SLE type M32.19 Active 37132444 Problem Hypertension, benign I10 Active 62098275 Problem Post herpetic neuralgia B02.29 Active 6738978 Problem Raynaud''s phenomenon without gangrene I73.00 Active 979523378 Problem Arthritis M19.90 Active 9956135 ALLERGIES No Information ENCOUNTERS Encounter Location Date Diagnosis [facility] [address], [place] [address] 0113 Apr, [facility] [address], [place] [address]- 9324 Feb, [facility] [address] [place] [address] 34507- 9565 Feb, Arm paresthesia, left R20.2 [facility] [id number], [place] [address]- 0884 Feb, [facility] [id number] [place] [address] 48171- 5851 Dec, Essential hypertension I10 and Type 2 diabetes mellitus without complications E11.9 [facility] [id number] [place] [address] 75681- 6743 Nov, [facility] [id number] [place] [address] 52086- 5275 Nov, [facility] [id number] [place] [address] 29838- 2898 Oct, Type 2 diabetes mellitus without complications E11.9 ; Arthritis M19.90 and Systemic lupus erythematosus with other organ involvement, unspecified SLE type M32.19 [facility] [id number] [place] [address] 38360- 9282 Oct, [facility] [id number] [place] [address] 58350- 6956 Oct, Systemic lupus erythematosus with other organ involvement, unspecified SLE type M32.19 [facility] [id number] [place] [address] 25043- 6852 Sep, [facility] [id number] [place] [address] 07543- 7467 Sep, Type 2 diabetes mellitus without complications E11.9 ; Anxiety F41.9 ; Dysuria R30.0 and Hypertension, benign I10 [facility] [id number] [place] [address] 76206- 7904 Sep, Type 2 diabetes mellitus without complications E11.9 [facility] [id number] [place] [address] 26081- 9012 Sep, Systemic lupus erythematosus with other organ involvement, unspecified SLE type M32.19 [facility] [id number] [place] [address] 27004- 1712 Sep, Post herpetic neuralgia B02.29 [facility] [id number] [place] [address] 18747- 2856 Sep, Raynaud''s phenomenon without gangrene I73.00 [facility] [address], [place] [address]- 4117 Sep, [facility] [address] [place] [address] 91518- 0704 Aug, [facility] [address] [place] [address] 59446- 9878 Aug, Type 2 diabetes mellitus without complications E11.9 [facility] [address] [place] [address] 66407- 6733 19 Aug, 2017 [facility] [id number] [place] [address] 59439- 9171 18 Aug, 2017 [facility] [id number] [place] [address] 31776- 2830 14 Aug, 2017 Type 2 diabetes mellitus without complications E11.9 [facility] [id number] [place] [address] 15501- 0589 14 Aug, 2017 Systemic lupus erythematosus with other organ involvement, unspecified SLE type M32.19 [facility] [address] [place] [address] 69521- 1914 05 Aug, 2017 [facility] [address] [place] [address] 55955- 2303 22 Jul, 2017 [facility] [address] [place] [address] 14847- 2546 16 Jul, 2017 Raynaud''s phenomenon without gangrene I73.00 [facility] [address], [place] [address]- 2389 16 Jul, 2017 Dental examination Z01.20 [facility] [address] [place] [address] 52579- 8979 13 Jul, 2017 Type 2 diabetes mellitus without complications E11.9 [facility] [address], [place] [address]- 6014 13 Jul, 2017 Raynaud''s phenomenon without gangrene I73.00 ; Arthritis M19.90 and Hypertension, benign I10 [facility] [id number] [place] [address] 16456- 9945 08 Jul, 2017 Type 2 diabetes mellitus without complications E11.9 [facility] [id number] [place] [address] 67356- 6342 08 Jul, 2017 [facility] [id number] [place] [address] 57909- 1468 Jul, [facility] [id number] [place] [address] 23482- 7071 Jul, Type 2 diabetes mellitus without complications E11.9 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 [id number] [place] [address] 18441- 2455 Jun, Type 2 diabetes mellitus without complications E11.9 and penitentiary current use of insulin Z79.4 [facility] [id number] [place] [address] 40682- 5247 Jun, [facility] [id number] [place] [address] 02784- 4651 Jun, Type 2 diabetes mellitus without complications E11.9 [facility] [id number] [place] [address] 93115- 9805 Jun, [facility] [address] [place] [address] 88182- 0531 Jun, Type 2 diabetes mellitus without complications E11.9 ; penitentiary current use of insulin Z79.4 and Acute idiopathic gout of left hand M10.042 [facility] [address], [place] [address]- 4209 May, [facility] [id number] [place] [address] 36191- 9801 May, Type 2 diabetes mellitus without complications E11.9 [place] [address], [place] [address]- 6364 May, Post herpetic neuralgia B02.29 [place] [address] [place] [address] 37019- 2033 May, Type 2 diabetes mellitus without complications E11.9 [place] [id number] [place] [address] 46631- 0970 Apr, Type 2 diabetes mellitus without complications E11.9 ; Chronic gout of multiple sites, unspecified cause M1A.09X0 and Anxiety F41.9 [place] [id number] [place] [address] 24218- 5835 Apr, [place] [id number] [place] [address] 38551- 3258 Apr, [place] [id number] [place] [address] 05092- 4090 Apr, Post herpetic neuralgia B02.29 [place] [address] [place] [address] 54191- 3306 Aug, Type 2 diabetes mellitus without complications E11.9 [place] [address], [place] [address]- 5327 14 Aug, 2016 Encounter to establish care Z76.89 ; Type 2 diabetes mellitus without complications E11.9 ; penitentiary current use of insulin Z79.4 ; Essential hypertension I10 ; Chronic gout of multiple sites, unspecified cause M1A.09X0 ; Coronary artery disease involving [place] coronary artery of [place] heart without angina pectoris I25.10 ; PVD (peripheral vascular disease) I73.9 ; Financial difficulties Z59.8 and Anxiety F41.9 [place] [address], [place] [address]- 1902 05 Aug, 2016 IMMUNIZATIONS No Known Immunizations SOCIAL HISTORY Never Assessed REASON FOR VISIT BS f/u stimichela starting mealtime insulin attempt PLAN OF CARE VITAL SIGNS MEDICATIONS [...]
--- OUTSIDE RECORDS SUMMARY | 2018-03-23 07:23 | XMS REPORT ---
Author Author ELIAS DOWNING Organization [facility] Address [address] [place] [address] Care Team Providers Care Screen Door Maker Name Role Phone ELIAS DOWNING Unavailable PROBLEMS Type Condition ICD9-CM Code [id number] Code Onset Dates Condition Status SNOMED Code Problem custodial current use of insulin Z79.4 Active 894227055 Problem Coronary artery disease involving quinault coronary artery of quinault heart without angina pectoris I25.10 Active 7428521328735 Problem Type 2 diabetes mellitus without complications E11.9 Active 017228231 Problem Essential hypertension I10 Active 29132524 Problem PVD (peripheral vascular disease) I73.9 Active 606270644 Problem Anxiety F41.9 Active 11783825 Problem Systemic lupus erythematosus with other organ involvement, unspecified SLE type M32.19 Active 03062667 Problem Raynaud''s phenomenon without gangrene I73.00 Active 470885306 Problem Post herpetic neuralgia B02.29 Active 3170020 Problem Chronic gout of multiple sites, unspecified cause M1A.09X0 Active 60889445 Problem Arthritis M19.90 Active 6743607 Problem Hypertension, benign I10 Active 35415346 ALLERGIES Substance Reaction Event Type Date Status Codeine Sulfate nausea Drug Allergy Apr, Active ENCOUNTERS Encounter Location Date Diagnosis [facility] [id number] [address] Dec, [facility] [id number] [address] Nov, [facility] [id number] [place] [address] 64586- 5686 Nov, [facility] [id number] [address] Oct, Type 2 diabetes mellitus without complications E11.9 ; Arthritis M19.90 and Systemic lupus erythematosus with other organ involvement, unspecified SLE type M32.19 [facility] [address] [place] [address] 85606- 3826 Oct, [facility] [id number] [place] [address] Oct, Systemic lupus erythematosus with other organ involvement, unspecified SLE type M32.19 [facility] [id number] [place] [address] 17164- 7921 Sep, [facility] [id number] [place] [address] 35849- 5192 Sep, Type 2 diabetes mellitus without complications E11.9 ; Anxiety F41.9 ; Dysuria R30.0 and Hypertension, benign I10 [facility] [id number] [place] [address] 51105- 0566 Sep, Type 2 diabetes mellitus without complications E11.9 [facility] [id number] [place] [address] 09498- 0622 Sep, Systemic lupus erythematosus with other organ involvement, unspecified SLE type M32.19 [facility] [id number] [place] [address] 87402- 1570 Sep, Post herpetic neuralgia B02.29 [facility] [id number] [place] [address] 03253- 4487 Sep, Raynaud''s phenomenon without gangrene I73.00 [facility] [id number] [place] [address] 40631- 0287 Sep, [facility] [address] [place] [address] 17270- 8590 Aug, [facility] [id number] [place] [address] 58894- 8340 Aug, Type 2 diabetes mellitus without complications E11.9 [facility] [id number] [place] [address] 58979- 2269 Aug, [facility] [address] [place] [address] 20105- 4811 18 Aug, 2017 [facility] [id number] [place] [address] 41117- 8481 14 Aug, 2017 Type 2 diabetes mellitus without complications E11.9 [facility] [id number] [place] [address] 56742- 5818 14 Aug, 2017 Systemic lupus erythematosus with other organ involvement, unspecified SLE type M32.19 [facility] [id number] [place] [address] 71593- 0142 05 Aug, 2017 [facility] [address] 56408- 3761 22 Jul, 2017 [facility] [id number] [place] [address] 05257- 9585 16 Jul, 2017 Raynaud''s phenomenon without gangrene I73.00 [facility] [id number] [place] [address] 45293- 8859 16 Jul, 2017 Dental examination Z01.20 [facility] [id number] [place] [address] 71801- 4771 13 Jul, 2017 Type 2 diabetes mellitus without complications E11.9 [facility] [id number] [place] [address] 69154- 5523 13 Jul, 2017 Raynaud''s phenomenon without gangrene I73.00 ; Arthritis M19.90 and Hypertension, benign I10 [facility] [address] [place] [address] 05907- 0197 08 Jul, 2017 Type 2 diabetes mellitus without complications E11.9 [facility] [id number] [place] [address] 14018- 3280 08 Jul, 2017 [facility] [id number] [place] [address] 57668- 9621 07 Jul, 2017 [facility] [id number] [place] [address] 83916- 7985 Jul, Type 2 diabetes mellitus without complications E11.9 [facility] [address] [address] Jun, Type 2 diabetes mellitus without complications E11.9 ; 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 and Acute idiopathic gout of left hand M10.042 [facility] [address] [address] Jun, Type 2 diabetes mellitus without complications E11.9 and custodial current use of insulin Z79.4 [facility] [id number] [address] 6[address] Jun, [facility] [id number] [place] [address] 48867- 6253 Jun, Type 2 diabetes mellitus without complications E11.9 [facility] [id number] [address]- 9248 Jun, [facility] [id number] [place] [address] 24758- 7076 Jun, Type 2 diabetes mellitus without complications E11.9 ; custodial current use of insulin Z79.4 and Acute idiopathic gout of left hand M10.042 [facility] [address] [address] 5367 May, [facility] [address] [address] 9833 May, Type 2 diabetes mellitus without complications E11.9 [facility] [address] [address] 1399 May, Post herpetic neuralgia B02.29 [facility] [id number] [place] [address] 57762- 4865 May, Type 2 diabetes mellitus without complications E11.9 [facility] [address] [address] 2403 Apr, Type 2 diabetes mellitus without complications E11.9 ; Chronic gout of multiple sites, unspecified cause M1A.09X0 and Anxiety F41.9 [facility] [address] [address]- 0043 Apr, [facility] [address] [address]- 2055 Apr, [facility] [address] [place] [address] 47676- 9193 Apr, Post herpetic neuralgia B02.29 [facility] [address] [place] [address] 69047- 8886 15 Aug, 2016 Type 2 diabetes mellitus without complications E11.9 [facility] [address] [place] [address] 21121- 6864 14 Aug, 2016 Encounter to establish care Z76.89 ; Type 2 diabetes mellitus without complications E11.9 ; custodial current use of insulin Z79.4 ; Essential hypertension I10 ; Chronic gout of multiple sites, unspecified cause M1A.09X0 ; Coronary artery disease involving quinault coronary artery of quinault heart without angina pectoris I25.10 ; PVD (peripheral vascular disease) I73.9 ; Financial difficulties Z59.8 and Anxiety F41.9 [facility] [address] [address]- 1668 05 Aug, 2016 IMMUNIZATIONS No Known Immunizations SOCIAL HISTORY Never Assessed REASON FOR VISIT Establish Care was suppose to see Ana, needed refills. Has been working for 2 yrs to get disability. Needs another script for his cane. Reports may get call from his disability. Has internal shingles right waist. CBrumbackRN PLAN OF CARE VITAL SIGNS Height 68 in 2017-04-30 Weight 178.8 lbs 2017-04-30 Temperature 97.5 degrees Fahrenheit 2017-04-30 Heart Rate 76 bpm 2017-04-30 Respiratory Rate 18 2017-04-30 BMI 27.18 kg/m2 2017-04-30 Blood pressure systolic 154 mmHg 2017-04-30 Blood pressure diastolic 80 mmHg 2017-04-30 MEDICATIONS Medication Instructions Dosage Frequency Start Date End Date Duration Status Cam Bauerar 300 UNIT/ML Subcutaneous 2 times a day Inject 80 units 12h Aug, Active Clonidine HCl 0.1 MG Orally Once a day 1 tablet at bedtime 24h Active Gabapentin 600 MG Orally 2 times a day 1 tablet 12h Active Glucocard Expression Monitor w/Device test blood sugar 12h Aug, Active Atorvastatin Calcium 20 MG Orally Once a day 1 tablet 24h Active Celebrex 200 MG Orally twice a day 1 capsule with food 12h Active Amlodipine Besylate 5 MG Orally Once a day 1 tablet 24h Active Cane 1 as directed Apr, Active Colcrys 0.6 MG Orally Once a day 1 tablet 24h Active Metoprolol Succinate ER 100 mg Orally twice a day 1.5 tablets 12h Active Ambien 10 mg Orally Once a day 1 tablet at bedtime as needed 24h Apr, Active Uloric 80 MG Orally Once a day 1 tablet 24h Apr, Sep, 30 day(s) Active Plavix 75 MG Orally Once a day 1 tablet 24h Active Aspirin Adult Low Dose 81 MG Orally Once a day 1 tablet 24h Active Glucocard Expression Test - test blood sugar 12h Aug, Active Pantoprazole Sodium 40 mg Orally twice a day 1 tablet 12h Active Ramipril 5 mg Orally Once a day 1 capsule 24h Active Uloric 80 MG Orally Once a day 1 tablet 24h Active Metoprolol Succinate ER 50 MG Orally [...]
--- OUTSIDE RECORDS SUMMARY | 2018-03-23 07:23 | XMS REPORT ---
Author Author ELIAS DOWNING Organization [facility] [place] Address [address] [place] [address] Care Team Providers Care Tire Technician Name Role Phone ELIAS DOWNING Unavailable PROBLEMS Type Condition ICD9-CM Code NMP38-VJ Code Onset Dates Condition Status SNOMED Code Problem Type 2 diabetes mellitus without complications E11.9 Active 076662871 Problem Chronic gout of multiple sites, unspecified cause M1A.09X0 Active 76584643 Problem Coronary artery disease involving chevak coronary artery of chevak heart without angina pectoris I25.10 Active 8894021309549 Problem Essential hypertension I10 Active 18664855 Problem PVD (peripheral vascular disease) I73.9 Active 115536130 Problem Anxiety F41.9 Active 56239036 Problem jail current use of insulin Z79.4 Active 834879084 Problem Arm paresthesia, left R20.2 Active 95746787 Problem Systemic lupus erythematosus with other organ involvement, unspecified SLE type M32.19 Active 73583292 Problem Hypertension, benign I10 Active 42554420 Problem Post herpetic neuralgia B02.29 Active 1074105 Problem Raynaud''s phenomenon without gangrene I73.00 Active 716998049 Problem Arthritis M19.90 Active 5889320 ALLERGIES No Information ENCOUNTERS Encounter Location Date Diagnosis [facility] [place] [address] [address]- 8[address] Apr, [facility] [place] [address], [place] [address]- 2867 Feb, [facility] [place] [id number] [place] [address] 13340- 8121 Feb, [facility] [place] [id number] [address]- 9790 Feb, Arm paresthesia, left R20.2 [facility] [place] [id number] [address]- 4851 Feb, [facility] [place] [id number] [place] [address] 02710- 2464 Dec, Essential hypertension I10 and Type 2 diabetes mellitus without complications E11.9 [facility] [place] [id number] [place] [address] 15833- 4932 Nov, [facility] [place] [address] 8[address]40- 8888 Nov, [facility] [place] [id number] [place] [address] 62190- 7714 Oct, Type 2 diabetes mellitus without complications E11.9 ; Arthritis M19.90 and Systemic lupus erythematosus with other organ involvement, unspecified SLE type M32.19 [facility] [id number] [place] [address] 14034- 7236 Oct, [facility] [place] [id number] [place] [address] 06568- 1479 Oct, Systemic lupus erythematosus with other organ involvement, unspecified SLE type M32.19 [facility] [id number] [place] [address] 89486- 0539 Sep, [facility] [place] [id number] [place] [address] 96708- 3119 Sep, Type 2 diabetes mellitus without complications E11.9 ; Anxiety F41.9 ; Dysuria R30.0 and Hypertension, benign I10 [facility] [place] [address] [place] [address] 35848- 9881 Sep, Type 2 diabetes mellitus without complications E11.9 [facility] [id number] [place] [address] 27911- 1244 Sep, Systemic lupus erythematosus with other organ involvement, unspecified SLE type M32.19 [facility] [place] [address] [place] [address] 07834- 9639 Sep, Post herpetic neuralgia B02.29 [place] [address] [address]- 3279 08 Sep, 2017 Raynaud''s phenomenon without gangrene I73.00 [facility] [place] [address] [address]- 9577 03 Sep, 2017 [facility] [place] [id number] [place] [address] 56331- 8216 Aug, [facility] [place] [id number] [place] [address] 30656- 8695 Aug, Type 2 diabetes mellitus without complications E11.9 [facility] [place] [id number] [place] [address] 54552- 4277 19 Aug, 2017 [facility] [place] [id number] [place] [address] 58276- 8734 18 Aug, 2017 [facility] [place] [id number] [place] [address] 40650- 3266 14 Aug, 2017 Type 2 diabetes mellitus without complications E11.9 [facility] [place] [address] [address]- 7212 14 Aug, 2017 Systemic lupus erythematosus with other organ involvement, unspecified SLE type M32.19 [facility] [place] [address] [address]- 6556 05 Aug, 2017 [facility] [place] [address] [address]- 5325 Jul, [facility] [place] [address], [place] [address]- 5640 16 Jul, 2017 Raynaud''s phenomenon without gangrene I73.00 [facility] [place] [address] [place] [address] 68439- 8313 16 Jul, 2017 Dental examination Z01.20 [facility] [place] [address], [place] [address]- 6525 13 Jul, 2017 Type 2 diabetes mellitus without complications E11.9 [facility] [place] [address], [place] [address]- 5948 13 Jul, 2017 Raynaud''s phenomenon without gangrene I73.00 ; Arthritis M19.90 and Hypertension, benign I10 [facility] [place] [id number] [address]- 0686 08 Jul, 2017 Type 2 diabetes mellitus without complications E11.9 [facility] [place] [id number] [place] [address] 90624- 7882 08 Jul, 2017 [facility] [place] [id number] [place] [address] 83725- 7722 Jul, [facility] [place] [id number] [place] [address] 83713- 4078 Jul, Type 2 diabetes mellitus without complications E11.9 [facility] [place] [id number] [place] [address] 90261- 6527 Jun, Type 2 diabetes mellitus without complications E11.9 ; jail current use of insulin Z79.4 and Acute idiopathic gout of left hand M10.042 [facility] [place] [address] [place] [address] 55491- 2158 27 Jun, 2017 Type 2 diabetes mellitus without complications E11.9 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 [facility] [address] [place] [address] 24085- 5902 Jun, [facility] [place] [id number] [place] [address] 39598- 5923 Jun, Type 2 diabetes mellitus without complications E11.9 [facility] [place] [address] [place] [address] 61598- 0986 Jun, [facility] [place] [id number] [place] [address] 38839- 6554 Jun, Type 2 diabetes mellitus without complications E11.9 ; jail current use of insulin Z79.4 and Acute idiopathic gout of left hand M10.042 [facility] [place] [id number] [place] [address] 24717- 8249 May, [facility] [place] [address], [place] [address]- 8245 May, Type 2 diabetes mellitus without complications E11.9 [facility] [place] [address], [place] [address]- 0208 May, Post herpetic neuralgia B02.29 [facility] [place] [address], [place] [address]- 9131 May, Type 2 diabetes mellitus without complications E11.9 [facility] [facility] [address], [place] [address]- 0827 Apr, Type 2 diabetes mellitus without complications E11.9 ; Chronic gout of multiple sites, unspecified cause M1A.09X0 and Anxiety F41.9 [place] [address], [place] [address]- 5816 Apr, [place] [facility] [address], [place] [address]- 6432 Apr, [place] [address], [place] [address]- 7812 Apr, Post herpetic neuralgia B02.29 [place] [address] [address]- 8112 Aug, Type 2 diabetes mellitus without complications E11.9 [facility] [facility] [address], [place] [address]- 0674 14 Aug, 2016 Encounter to establish care Z76.89 ; Type 2 diabetes mellitus without complications E11.9 ; 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 ; Essential hypertension I10 ; Chronic gout of multiple sites, unspecified cause M1A.09X0 ; Coronary artery disease involving [place]vak coronary artery of chevak heart without angina pectoris I25.10 ; PVD (peripheral vascular disease) I73.9 ; Financial difficulties Z59.8 and Anxiety F41.9 [place] [address], [place] [address]- 7634 Aug, IMMUNIZATIONS No Known Immunizations SOCIAL HISTORY Never Assessed REASON FOR VISIT BS f/u PLAN OF CARE VITAL SIGNS MEDICATIONS Medication Instructions Dosage Frequency Start Date End Date Duration Status NovoLog 100 UNIT/ML Subcutaneous 3 times a day with meals 30 umits Aug Active RESULTS No Results PROCEDURES No Known [...]
--- OUTSIDE RECORDS SUMMARY | 2018-03-23 07:23 | XMS REPORT ---
Author Author ELIAS DOWNING Organization [facility] Address [address] [place] [address] Care Team Providers Care Hand Drawer In Helper Name Role Phone ELIAS DOWNING Unavailable PROBLEMS Type Condition ICD9-CM Code PTH38-PI Code Onset Dates Condition Status SNOMED Code Problem Type 2 diabetes mellitus without complications E11.9 Active 915011211 Problem Chronic gout of multiple sites, unspecified cause M1A.09X0 Active 14130094 Problem Coronary artery disease involving grindstone coronary artery of grindstone heart without angina pectoris I25.10 Active 9340694388765 Problem Essential hypertension I10 Active 83286798 Problem PVD (peripheral vascular disease) I73.9 Active 907145813 Problem Anxiety F41.9 Active 76565898 Problem nursing home current use of insulin Z79.4 Active 137584413 Problem Arm paresthesia, left R20.2 Active 18269469 Problem Systemic lupus erythematosus with other organ involvement, unspecified SLE type M32.19 Active 74185917 Problem Hypertension, benign I10 Active 91271363 Problem Post herpetic neuralgia B02.29 Active 8128400 Problem Raynaud''s phenomenon without gangrene I73.00 Active 977422107 Problem Arthritis M19.90 Active 7153355 ALLERGIES No Information ENCOUNTERS Encounter Location Date Diagnosis [facility] [address], [place] [address] Apr, [facility] [address], [place] [address] Feb, [facility] [id number] [place] [address] 98250- 5656 Feb, [facility] [id number] [address] 39[address] Feb, Arm paresthesia, left R20.2 [facility] [id number] [address] 6070 Feb, [facility] [id number] [place] [address] 80468- 9350 Dec, Essential hypertension I10 and Type 2 diabetes mellitus without complications E11.9 [facility] [id number] [place] [address] 47468- 4605 Nov, [facility] [address] [address]- [address]1 Nov, [facility] [id number] [place] [address] 85258- 4602 Oct, Type 2 diabetes mellitus without complications E11.9 ; Arthritis M19.90 and Systemic lupus erythematosus with other organ involvement, unspecified SLE type M32.19 [facility] [facility] [id number] [place] [address] 87398- 8818 Oct, [facility] [id number] [place] [address] 92792- 6824 Oct, Systemic lupus erythematosus with other organ involvement, unspecified SLE type M32.19 [facility] [id number] [place] [address] 88619- 9406 Sep, [facility] [id number] [place] [address] 76253- 6945 Sep, Type 2 diabetes mellitus without complications E11.9 ; Anxiety F41.9 ; Dysuria R30.0 and Hypertension, benign I10 [facility] [address] [place] [address] 64645- 6627 Sep, Type 2 diabetes mellitus without complications E11.9 [facility] [id number] [place] [address] 45753- 5861 Sep, Systemic lupus erythematosus with other organ involvement, unspecified SLE type M32.19 [facility] [address] [place] [address] 81863- 8727 Sep, Post herpetic neuralgia B02.29 [place] [id number], [place] [address] 9070 08 Sep, 2017 Raynaud''s phenomenon without gangrene I73.00 [facility] [address], [place] [address] 2163 03 Sep, 2017 [facility] [id number] [place] [address] 32796- 9800 Aug, [facility] [id number] [place] [address] 22181- 3311 Aug, Type 2 diabetes mellitus without complications E11.9 [facility] [id number] [place] [address] 05458- 3029 19 Aug, 2017 [facility] [id number] [place] [address] 51758- 2194 18 Aug, 2017 [facility] [id number] [place] [address] 06478- 3976 14 Aug, 2017 Type 2 diabetes mellitus without complications E11.9 [facility] [address], [place] [address] 0359 14 Aug, 2017 Systemic lupus erythematosus with other organ involvement, unspecified SLE type M32.19 [facility] [address], [place] [address]- 5060 05 Aug, 2017 [facility] [address], [place] [address] 0368 Jul, [facility] [address], [place] [address]- 5127 16 Jul, 2017 Raynaud''s phenomenon without gangrene I73.00 [facility] [id number] [place] [address] 50882- 5117 16 Jul, 2017 Dental examination Z01.20 [facility] [address], [place] [address] 1020 13 Jul, 2017 Type 2 diabetes mellitus without complications E11.9 [facility] [address], [place] [address] 3257 13 Jul, 2017 Raynaud''s phenomenon without gangrene I73.00 ; Arthritis M19.90 and Hypertension, benign I10 [facility] [id number] [address] 3543 08 Jul, 2017 Type 2 diabetes mellitus without complications E11.9 [facility] [id number] [place] [address] 15391- 2104 08 Jul, 2017 [facility] [id number] [place] [address] 48216- 3668 Jul, [facility] [id number] [place] [address] 30021- 7244 Jul, Type 2 diabetes mellitus without complications E11.9 [facility] [id number] [place] [address] 46481- 8249 Jun, Type 2 diabetes mellitus without complications E11.9 ; nursing home current use of insulin Z79.4 and Acute idiopathic gout of left hand M10.042 [facility] [address] [place] [address] 47397- 0576 27 Jun, 2017 Type 2 diabetes mellitus without complications E11.9 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 [facility] [address] [place] [address] 66118- 6117 Jun, [facility] [id number] [place] [address] 79713- 5117 Jun, Type 2 diabetes mellitus without complications E11.9 [facility] [id number] [place] [address] 14441- 7078 Jun, [facility] [id number] [place] [address] 05762- 0124 Jun, Type 2 diabetes mellitus without complications E11.9 ; nursing home current use of insulin Z79.4 and Acute idiopathic gout of left hand M10.042 [facility] [id number] [place] [address] 82159- 5902 May, [facility] [address], [place] [address]- 6389 May, Type 2 diabetes mellitus without complications E11.9 [facility] [address], [place] [address]- 1481 May, Post herpetic neuralgia B02.29 [facility] [address], [place] [address]- 0674 May, Type 2 diabetes mellitus without complications E11.9 [facility] [facility] [address], [place] [address]- 8621 Apr, Type 2 diabetes mellitus without complications E11.9 ; Chronic gout of multiple sites, unspecified cause M1A.09X0 and Anxiety F41.9 [facility] [address], [place] [address]- 9542 Apr, [facility] [facility] [address], [place] [address]- 6047 Apr, [facility] [address], [place] [address]- 9291 Apr, Post herpetic neuralgia B02.29 [place] [address], [place] [address]- 4102 Aug, Type 2 diabetes mellitus without complications E11.9 [facility] [facility] [address], [place] [address]- 1598 14 Aug, 2016 Encounter to establish care Z76.89 ; Type 2 diabetes mellitus without complications E11.9 ; 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 ; Essential hypertension I10 ; Chronic gout of multiple sites, unspecified cause M1A.09X0 ; Coronary artery disease involving grindstone coronary artery of grindstone heart without angina pectoris I25.10 ; PVD (peripheral vascular disease) I73.9 ; Financial difficulties Z59.8 and Anxiety F41.9 [facility] [facility] [address], [place] [address]- 2824 Aug, IMMUNIZATIONS No Known Immunizations SOCIAL HISTORY Never Assessed REASON FOR VISIT Controlled Refill/Need Ameritox PLAN OF CARE VITAL SIGNS MEDICATIONS Medication Instructions Dosage Frequency Start Date End Date Duration Status Exchange 7.5-325 MG Orally every 6 hrs 1 tablet as needed 6h Sep, 28 days Active Ambien 10 mg Orally Once a day 1 tablet at bedtime as needed 24h Apr, 28 days Active RESULTS No Results PROCEDURES No [...]
--- OUTSIDE RECORDS SUMMARY | 2018-03-23 07:23 | XMS REPORT ---
Author Author ELIAS DOWNING Organization [facility] Address [address] [place] [address] Care Team Providers Care Student Counselor Name Role Phone ELIAS DOWNING Unavailable PROBLEMS Type Condition ICD9-CM Code ITQ50-XP Code Onset Dates Condition Status SNOMED Code Problem [facility] current use of insulin Z79.4 Active 744926817 Problem Coronary artery disease involving tejon coronary artery of tejon heart without angina pectoris I25.10 Active 9259952672320 Problem Type 2 diabetes mellitus without complications E11.9 Active 767861312 Problem Essential hypertension I10 Active 28893863 Problem PVD (peripheral vascular disease) I73.9 Active 313147132 Problem Anxiety F41.9 Active 19193584 Problem Systemic lupus erythematosus with other organ involvement, unspecified SLE type M32.19 Active 24009423 Problem Raynaud''s phenomenon without gangrene I73.00 Active 807178640 Problem Post herpetic neuralgia B02.29 Active 1909450 Problem Chronic gout of multiple sites, unspecified cause M1A.09X0 Active 80377469 Problem Arthritis M19.90 Active 1802347 Problem Hypertension, benign I10 Active 76039825 ALLERGIES No Information ENCOUNTERS Encounter Location Date Diagnosis [facility] [id number] [address]- 1076 Feb, [facility] [address] [place] [address] 23019- 6334 Dec, Essential hypertension I10 and Type 2 diabetes mellitus without complications E11.9 [facility] [id number] [place] [address] 64549- 4893 Nov, [facility] [address] [address]- 0098 Nov, [facility] [id number] [place] [address] 10010- 5985 Oct, Type 2 diabetes mellitus without complications E11.9 ; Arthritis M19.90 and Systemic lupus erythematosus with other organ involvement, unspecified SLE type M32.19 [place] [id number] [place] [address] 07720- 0182 Oct, [facility] [id number] [place] [address] 26057- 2154 Oct, Systemic lupus erythematosus with other organ involvement, unspecified SLE type M32.19 [facility] [id number] [place] [address] 65730- 2058 Sep, [place] [id number] [place] [address] 95394- 9941 Sep, Type 2 diabetes mellitus without complications E11.9 ; Anxiety F41.9 ; Dysuria R30.0 and Hypertension, benign I10 [place] [id number] [place] [address] 60404- 9330 Sep, Type 2 diabetes mellitus without complications E11.9 [place] [id number] [place] [address] 81842- 4548 Sep, Systemic lupus erythematosus with other organ involvement, unspecified SLE type M32.19 [place] [id number] [place] [address] 46239- 6767 Sep, Post herpetic neuralgia B02.29 [place] [id number] [place] [address] 95162- 1375 Sep, Raynaud''s phenomenon without gangrene I73.00 [place] [id number] [place] [address] 38869- 8881 Sep, [place] [id number] [place] [address] 22835- 8644 Aug, [place] [id number] [place] [address] 00255- 1027 Aug, Type 2 diabetes mellitus without complications E11.9 [place] [address] [place] [address] 21369- 8408 19 Aug, 2017 [facility] [id number] [place] [address] 01517- 0638 18 Aug, 2017 [facility] [id number] [place] [address] 35364- 4205 14 Aug, 2017 Type 2 diabetes mellitus without complications E11.9 [facility] [id number] [place] [address] 39928- 8960 14 Aug, 2017 Systemic lupus erythematosus with other organ involvement, unspecified SLE type M32.19 [facility] [id number] [place] [address] 59746- 4038 05 Aug, 2017 [facility] [id number] [place] [address] 50305- 5204 Jul, [facility] [id number] [place] [address] 04278- 1754 16 Jul, 2017 Raynaud''s phenomenon without gangrene I73.00 [facility] [id number] [place] [address] 32851- 3662 16 Jul, 2017 Dental examination Z01.20 [facility] [id number] [place] [address] 63559- 3541 13 Jul, 2017 Type 2 diabetes mellitus without complications E11.9 [facility] [id number] [place] [address] 01545- 2900 13 Jul, 2017 Raynaud''s phenomenon without gangrene I73.00 ; Arthritis M19.90 and Hypertension, benign I10 [facility] [id number] [place] [address] 14132- 7872 08 Jul, 2017 Type 2 diabetes mellitus without complications E11.9 [facility] [id number] [place] [address] 48863- 5099 08 Jul, 2017 [facility] [id number] [place] [address] 60890- 5738 Jul, [facility] [address] [address]- 6607 02 Jul, 2017 Type 2 diabetes mellitus without complications E11.9 [facility] [address] [place] [address] 33363- 2927 Jun, Type 2 diabetes mellitus without complications E11.9 ; 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 and Acute idiopathic gout of left hand M10.042 [facility] [id number] [place] [address] 99777- 4117 Jun, Type 2 diabetes mellitus without complications E11.9 and 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 [facility] [id number] [place] [address] 01629- 7558 Jun, [facility] [id number] [place] [address] 88778- 5925 Jun, Type 2 diabetes mellitus without complications E11.9 [facility] [address] [place] [address] 87692- 3161 Jun, [facility] [id number] [place] [address] 14303- 5778 Jun, Type 2 diabetes mellitus without complications E11.9 ; 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 and Acute idiopathic gout of left hand M10.042 [facility] [address] [address]- 2005 May, [facility] [address] [place] [address] 28008- 1720 May, Type 2 diabetes mellitus without complications E11.9 [facility] [address] [place] [address] 25410- 1134 May, Post herpetic neuralgia B02.29 [facility] [address] [place] [address] 23964- 5828 May, Type 2 diabetes mellitus without complications E11.9 [facility] [id number] [place] [address] 77413- 8059 Apr, Type 2 diabetes mellitus without complications E11.9 ; Chronic gout of multiple sites, unspecified cause M1A.09X0 and Anxiety F41.9 [place] [address] [address]- 6228 Apr, [place] [id number] [place] [address] 44243- 1030 Apr, [place] [id number] [place] [address] 83272- 8883 Apr, Post herpetic neuralgia B02.29 [place] [id number] [place] [address] 51140- 3444 Aug, Type 2 diabetes mellitus without complications E11.9 [place] [id number] [place] [address] 26023- 0742 14 Aug, 2016 Encounter to establish care Z76.89 ; Type 2 diabetes mellitus without complications E11.9 ; 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 ; Essential hypertension I10 ; Chronic gout of multiple sites, unspecified cause M1A.09X0 ; Coronary artery disease involving tejon coronary artery of tejon heart without angina pectoris I25.10 ; PVD (peripheral vascular disease) I73.9 ; Financial difficulties Z59.8 and Anxiety F41.9 [place] [address] [address]- 4742 Aug, IMMUNIZATIONS No Known Immunizations SOCIAL HISTORY Never Assessed REASON FOR VISIT Controlled Refill Request PLAN OF CARE VITAL SIGNS MEDICATIONS Medication Instructions Dosage Frequency Start Date End Date Duration Status Ambien 10 mg Orally Once a day 1 tablet at bedtime as needed 24h Apr, Active RESULTS No Results PROCEDURES No Known [...]
[2018-03-23] MEDS: NS IV 1000 ML 1,000 ML IV SCH ×2 (07:24→17:00)
--- OUTSIDE RECORDS SUMMARY | 2018-03-23 07:24 | XMS REPORT ---
Author Author ELIAS DOWNING Organization [facility] Address [address] [place] [address] Care Team Providers Care Aircraft Maintenance Director Name Role Phone ELIAS DOWNING Unavailable PROBLEMS Type Condition ICD9-CM Code DRV56-GN Code Onset Dates Condition Status SNOMED Code Problem snf current use of insulin Z79.4 Active 915095454 Problem Coronary artery disease involving [place] coronary artery of [place] heart without angina pectoris I25.10 Active 8759594733764 Problem Type 2 diabetes mellitus without complications E11.9 Active 988604012 Problem Essential hypertension I10 Active 81058321 Problem PVD (peripheral vascular disease) I73.9 Active 049364523 Problem Anxiety F41.9 Active 22102927 Problem Systemic lupus erythematosus with other organ involvement, unspecified SLE type M32.19 Active 90492692 Problem Raynaud''s phenomenon without gangrene I73.00 Active 619361038 Problem Post herpetic neuralgia B02.29 Active 2005329 Problem Chronic gout of multiple sites, unspecified cause M1A.09X0 Active 27102827 Problem Arthritis M19.90 Active 0639164 Problem Hypertension, benign I10 Active 87310415 ALLERGIES No Information ENCOUNTERS Encounter Location Date Diagnosis [facility] [id number] [address] Feb, [facility] [address] [place] [address] 98877- 1778 Dec, Essential hypertension I10 and Type 2 diabetes mellitus without complications E11.9 [facility] [address] [place] [address] 02454- 9253 Nov, [facility] [address] [address] Nov, [facility] [address] [place] [address] 84636- 3268 Oct, Type 2 diabetes mellitus without complications E11.9 ; Arthritis M19.90 and Systemic lupus erythematosus with other organ involvement, unspecified SLE type M32.19 [place] [id number] [place] [address] 19009- 8140 Oct, [facility] [id number] [place] [address] 97740- 4687 Oct, Systemic lupus erythematosus with other organ involvement, unspecified SLE type M32.19 [facility] [id number] [place] [address] 71323- 5248 Sep, [place] [id number] [place] [address] 86930- 3875 Sep, Type 2 diabetes mellitus without complications E11.9 ; Anxiety F41.9 ; Dysuria R30.0 and Hypertension, benign I10 [place] [id number] [place] [address] 48655- 2717 Sep, Type 2 diabetes mellitus without complications E11.9 [place] [id number] [place] [address] 92215- 7933 Sep, Systemic lupus erythematosus with other organ involvement, unspecified SLE type M32.19 [place] [id number] [place] [address] 09441- 9786 Sep, Post herpetic neuralgia B02.29 [place] [id number] [place] [address] 92825- 4785 Sep, Raynaud''s phenomenon without gangrene I73.00 [place] [id number] [place] [address] 25819- 4741 Sep, [place] [id number] [place] [address] 40646- 7111 Aug, [place] [id number] [place] [address] 13359- 9481 Aug, Type 2 diabetes mellitus without complications E11.9 [place] [address] [place] [address] 59551- 4452 19 Aug, 2017 [facility] [id number] [place] [address] 74374- 0868 18 Aug, 2017 [facility] [id number] [place] [address] 04929- 8236 14 Aug, 2017 Type 2 diabetes mellitus without complications E11.9 [facility] [id number] [place] [address] 62131- 9443 14 Aug, 2017 Systemic lupus erythematosus with other organ involvement, unspecified SLE type M32.19 [facility] [id number] [place] [address] 69615- 1921 05 Aug, 2017 [facility] [id number] [place] [address] 25426- 9999 Jul, [facility] [id number] [place] [address] 11129- 8714 16 Jul, 2017 Raynaud''s phenomenon without gangrene I73.00 [facility] [id number] [place] [address] 69260- 2008 16 Jul, 2017 Dental examination Z01.20 [facility] [id number] [place] [address] 65573- 7327 13 Jul, 2017 Type 2 diabetes mellitus without complications E11.9 [facility] [id number] [place] [address] 32024- 2337 13 Jul, 2017 Raynaud''s phenomenon without gangrene I73.00 ; Arthritis M19.90 and Hypertension, benign I10 [facility] [id number] [place] [address] 19673- 5468 08 Jul, 2017 Type 2 diabetes mellitus without complications E11.9 [facility] [id number] [place] [address] 37928- 2414 08 Jul, 2017 [facility] [id number] [place] [address] 47825- 8526 Jul, [facility] [address] [address] 7129 02 Jul, 2017 Type 2 diabetes mellitus without complications E11.9 [facility] [address] [place] [address] 58685- 1424 Jun, Type 2 diabetes mellitus without complications E11.9 ; 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 and Acute idiopathic gout of left hand M10.042 [facility] [id number] [place] [address] 32285- 3205 Jun, Type 2 diabetes mellitus without complications E11.9 and 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 [facility] [id number] [place] [address] 10653- 4763 Jun, [facility] [id number] [place] [address] 48179- 9232 Jun, Type 2 diabetes mellitus without complications E11.9 [facility] [address] [place] [address] 45803- 5648 Jun, [facility] [id number] [place] [address] 97867- 3452 Jun, Type 2 diabetes mellitus without complications E11.9 ; 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 and Acute idiopathic gout of left hand M10.042 [facility] [address] [address] May, [facility] [address] [place] [address] 69372- 1813 May, Type 2 diabetes mellitus without complications E11.9 [facility] [address] [place] [address] 83161- 5316 May, Post herpetic neuralgia B02.29 [facility] [address] [place] [address] 14159- 8993 May, Type 2 diabetes mellitus without complications E11.9 [facility] [id number] [address] Apr, Type 2 diabetes mellitus without complications E11.9 ; Chronic gout of multiple sites, unspecified cause M1A.09X0 and Anxiety F41.9 [place] [address] [address]- 478[address] Apr, [place] [id number] [place] [address] 41036- 4630 Apr, [place] [id number] [place] [address] 23974- 4064 Apr, Post herpetic neuralgia B02.29 [place] [id number] [place] [address] 37843- 7744 Aug, Type 2 diabetes mellitus without complications E11.9 [place] [id number] [place] [address] 21117- 6329 14 Aug, 2016 Encounter to establish care Z76.89 ; Type 2 diabetes mellitus without complications E11.9 ; 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 ; Essential hypertension I10 ; Chronic gout of multiple sites, unspecified cause M1A.09X0 ; Coronary artery disease involving [place] coronary artery of sw[place] heart without angina pectoris I25.10 ; PVD (peripheral vascular disease) I73.9 ; Financial difficulties Z59.8 and Anxiety F41.9 [place] [address] [place] [address] 84821- 6093 Aug, IMMUNIZATIONS No Known Immunizations SOCIAL HISTORY Never Assessed REASON FOR VISIT PALS PLAN OF CARE VITAL SIGNS MEDICATIONS Medication Instructions Dosage Frequency Start Date End Date Duration Status Pen [place] 30G X 8 MM subcutaneously Once a day Use with tresiba pens to Inject 24h Jul, 90 days Active RESULTS No Results PROCEDURES [...]
--- OUTSIDE RECORDS SUMMARY | 2018-03-23 07:24 | XMS REPORT ---
Author Author ELIAS DOWNING Organization [facility] Address [address] [place] [address] Care Team Providers Care Cable Spooler Name Role Phone ELIAS DOWNING Unavailable PROBLEMS Type Condition ICD9-CM Code DGM75-HP Code Onset Dates Condition Status SNOMED Code Problem [facility] current use of insulin Z79.4 Active 984350149 Problem Coronary artery disease involving [place] coronary artery of [place] heart without angina pectoris I25.10 Active 1157502639593 Problem Type 2 diabetes mellitus without complications E11.9 Active 415487501 Problem Essential hypertension I10 Active 51418334 Problem PVD (peripheral vascular disease) I73.9 Active 788706640 Problem Anxiety F41.9 Active 21787823 Problem Systemic lupus erythematosus with other organ involvement, unspecified SLE type M32.19 Active 27213442 Problem Raynaud''s phenomenon without gangrene I73.00 Active 937245374 Problem Post herpetic neuralgia B02.29 Active 0359934 Problem Chronic gout of multiple sites, unspecified cause M1A.09X0 Active 04270606 Problem Arthritis M19.90 Active 5062742 Problem Hypertension, benign I10 Active 31178868 ALLERGIES Substance Reaction Event Type Date Status Codeine Sulfate nausea Drug Allergy May, Active ENCOUNTERS Encounter Location Date Diagnosis [facility] [id number], [place] [address] Feb, [facility] [id number], [place] [address] 1990 Dec, Essential hypertension I10 and Type 2 diabetes mellitus without complications E11.9 [facility] [id number], [place] [address]- 4633 Nov, [facility] [id number] [address]- 6173 Nov, [facility] [id number] [place] [address] 34453- 1799 Oct, Type 2 diabetes mellitus without complications E11.9 ; Arthritis M19.90 and Systemic lupus erythematosus with other organ involvement, unspecified SLE type M32.19 [facility] [id number] [place] [address] 01980- 3370 Oct, [place] [address] 65177- 5027 Oct, Systemic lupus erythematosus with other organ involvement, unspecified SLE type M32.19 [place] [id number] [place] [address] 22015- 6123 Sep, [place] [id number] [place] [address] 98708- 6180 Sep, Type 2 diabetes mellitus without complications E11.9 ; Anxiety F41.9 ; Dysuria R30.0 and Hypertension, benign I10 [place] [id number] [place] [address] 61636- 0788 Sep, Type 2 diabetes mellitus without complications E11.9 [place] [id number] [place] [address] 24463- 6226 Sep, Systemic lupus erythematosus with other organ involvement, unspecified SLE type M32.19 [place] [id number] [place] [address] 77340- 2184 Sep, Post herpetic neuralgia B02.29 [place] [id number] [place] [address] 01445- 4242 Sep, Raynaud''s phenomenon without gangrene I73.00 [place] [address] 75919- 9362 Sep, [facility] [id number] [place] [address] 41728- 5826 Aug, [place] [address] 77797- 6894 Aug, Type 2 diabetes mellitus without complications E11.9 [facility] [id number], [place] [address]- 5308 19 Aug, 2017 [facility] [id number] [place] [address] 88066- 5213 18 Aug, 2017 [facility] [id number] [place] [address] 17703- 8056 14 Aug, 2017 Type 2 diabetes mellitus without complications E11.9 [facility] [id number] [place] [address] 36279- 1238 14 Aug, 2017 Systemic lupus erythematosus with other organ involvement, unspecified SLE type M32.19 [facility] [id number] [place] [address] 34800- 1944 05 Aug, 2017 [facility] [id number] [place] [address] 38636- 6757 Jul, [facility] [id number] [place] [address] 26071- 7391 16 Jul, 2017 Raynaud''s phenomenon without gangrene I73.00 [facility] [id number] [place] [address] 31650- 6311 16 Jul, 2017 Dental examination Z01.20 [facility] [id number] [place] [address] 51631- 3836 13 Jul, 2017 Type 2 diabetes mellitus without complications E11.9 [facility] [id number] [place] [address] 19140- 5662 13 Jul, 2017 Raynaud''s phenomenon without gangrene I73.00 ; Arthritis M19.90 and Hypertension, benign I10 [facility] [id number] [place] [address] 06940- 4953 08 Jul, 2017 Type 2 diabetes mellitus without complications E11.9 [facility] [id number] [place] [address] 16243- 3537 08 Jul, 2017 [facility] [id number], [place] [address]- 8035 Jul, [facility] [id number], [place] [address]- 8880 Jul, Type 2 diabetes mellitus without complications E11.9 [facility] [id number], [place] [address]- 7992 Jun, Type 2 diabetes mellitus without complications E11.9 ; MCFP current use of insulin Z79.4 and Acute idiopathic gout of left hand M10.042 [facility] [id number] [address]- 9787 Jun, Type 2 diabetes mellitus without complications E11.9 and MCFP current use of insulin Z79.4 [facility] [id number], [place] [address]- 6361 Jun, [facility] [address] [place] [address] 55064- 9629 Jun, Type 2 diabetes mellitus without complications E11.9 [facility] [address], [place] [address]- 9177 Jun, [facility] [address], [place] [address]- 6563 Jun, Type 2 diabetes mellitus without complications E11.9 ; MCFP current use of insulin Z79.4 and Acute idiopathic gout of left hand M10.042 [facility] [address], [place] [address]- 9060 May, [facility] [address] [address]- 5389 May, Type 2 diabetes mellitus without complications E11.9 [facility] [address], [place] [address]- 4110 May, Post herpetic neuralgia B02.29 [facility] [address] [place] [address]- 2037 May, Type 2 diabetes mellitus without complications E11.9 [place] [address], [place] [address]- 5950 Apr, Type 2 diabetes mellitus without complications E11.9 ; Chronic gout of multiple sites, unspecified cause M1A.09X0 and Anxiety F41.9 [place] [address], [place] [address]- 8074 Apr, [place] [id number] [place] [address] 95647- 7935 Apr, [place] [id number] [place] [address] 95740- 1180 Apr, Post herpetic neuralgia B02.29 [place] [id number] [place] [address] 04226- 8118 Aug, Type 2 diabetes mellitus without complications E11.9 [place] [id number] [place] [address] 90443- 7845 14 Aug, 2016 Encounter to establish care Z76.89 ; Type 2 diabetes mellitus without complications E11.9 ; 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 ; Essential hypertension I10 ; Chronic gout of multiple sites, unspecified cause M1A.09X0 ; Coronary artery disease involving [place] coronary artery of [place] heart without angina pectoris I25.10 ; PVD (peripheral vascular disease) I73.9 ; Financial difficulties Z59.8 and Anxiety F41.9 [place] [address] [place] [address] 14608- 0359 Aug, IMMUNIZATIONS No Known Immunizations SOCIAL HISTORY Never Assessed REASON FOR VISIT samples PLAN OF CARE VITAL SIGNS MEDICATIONS Medication Instructions Dosage Frequency Start Date End Date Duration Status Toulexi SoloStar 300 UNIT/ML Subcutaneous 2 times a day Inject 85 units 12h 14 Aug, 2016 Active RESULTS No Results PROCEDURES No Known [...]
--- OUTSIDE RECORDS SUMMARY | 2018-03-23 07:24 | XMS REPORT ---
Author Author EDY MOFFETT [facility] Address [address] [place] [address] Care Team Providers Care Animal Scientist Name Role Phone EDY MOFFETT Unavailable PROBLEMS Type Condition ICD9-CM Code [id number] Code Onset Dates Condition Status SNOMED Code Problem PVD (peripheral vascular disease) I73.9 Active 912839011 Problem Anxiety F41.9 Active 85607506 Problem Post herpetic neuralgia B02.29 Active 9555334 Problem Type 2 diabetes mellitus without complications E11.9 Active 738375418 Problem Chronic gout of multiple sites, unspecified cause M1A.09X0 Active 52466099 Problem Coronary artery disease involving [place] coronary artery of [place] heart without angina pectoris I25.10 Active 3112620328326 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 454008892 Problem Essential hypertension I10 Active 72004033 ALLERGIES Substance Reaction Event Type Date Status Codeine Sulfate nausea Drug Allergy Aug, Active SOCIAL HISTORY No smoking Hx information available PLAN OF CARE Activity Details Follow Up 4 Weeks Reason:DM VITAL SIGNS Height 68 in 2016-08-20 Weight 186 lbs 2016-08-20 Temperature 97.9 degrees Fahrenheit 2016-08-20 Heart Rate 88 bpm 2016-08-20 Respiratory Rate 16 2016-08-20 BMI 28.28 kg/m2 2016-08-20 Blood pressure systolic 147 mmHg 2016-08-20 Blood pressure diastolic 102 mmHg 2016-08-20 MEDICATIONS Medication Instructions Dosage Frequency Start Date End Date Duration Status Amlodipine Besylate 5 MG Orally Once a day 1 tablet 24h Active Escitalopram Oxalate 10 MG Orally Once a day 1 tablet 24h Active Glucocard Expression Test - test blood sugar 12h Aug, Active Hydrocodone-Acetaminophen 5-325 MG Orally every 4-6 hours as needed 1 tablet as needed Active Lasix 40 mg Orally Once a day 1 tablet 24h Active Atorvastatin Calcium 20 MG Orally Once a day 1 tablet 24h Active Flurazepam HCl 30 MG Orally Once a day 1 capsule at bedtime 24h Active Cam WeaveroStar 300 UNIT/ML Subcutaneous 2 times a day Inject 85 units 12h Aug, Active Clonidine HCl 0.1 MG Orally Once a day 1 tablet at bedtime 24h Active Uloric 80 MG Orally Once a day 1 tablet 24h Active Plavix 75 MG Orally Once a day 1 tablet 24h Active Glucocard Expression Monitor w/Device test blood sugar 12h Aug, Active Ramipril 5 mg Orally Once a day 1 capsule 24h Active Pantoprazole Sodium 40 mg Orally twice a day 1 tablet 12h Active Metoprolol Succinate ER 100 MG Orally twice a day 1.5 tablets 12h 90 days Active Alprazolam 0.25 MG Orally Three times a day 1 tablet 8h Active RESULTS No Results PROCEDURES Procedure Date Ordered Related Diagnosis Body Site Office Visit, New Pt., Level 3 Aug 20, 2016 IMMUNIZATIONS No Known Immunizations
--- OUTSIDE RECORDS SUMMARY | 2018-03-23 07:24 | XMS REPORT ---
Author Author ELIAS DOWNING Organization [facility] Address [address] [place] [address] Care Team Providers Care Advertiser Name Role Phone ELIAS DOWNING Unavailable PROBLEMS Type Condition ICD9-CM Code OHR05-PS Code Onset Dates Condition Status SNOMED Code Problem Type 2 diabetes mellitus without complications E11.9 Active 879001507 Problem Chronic gout of multiple sites, unspecified cause M1A.09X0 Active 07168358 Problem Coronary artery disease involving [place] coronary artery of [place] heart without angina pectoris I25.10 Active 3396062817407 Problem Essential hypertension I10 Active 81290913 Problem PVD (peripheral vascular disease) I73.9 Active 677718636 Problem Anxiety F41.9 Active 90583385 Problem MCFP current use of insulin Z79.4 Active 168425755 Problem Arm paresthesia, left R20.2 Active 47026262 Problem Systemic lupus erythematosus with other organ involvement, unspecified SLE type M32.19 Active 99411303 Problem Hypertension, benign I10 Active 56263560 Problem Post herpetic neuralgia B02.29 Active 2990865 Problem Raynaud''s phenomenon without gangrene I73.00 Active 670817937 Problem Arthritis M19.90 Active 5083087 ALLERGIES Substance Reaction Event Type Date Status Codeine Sulfate nausea Drug Allergy Aug, Active ENCOUNTERS Encounter Location Date Diagnosis [facility] [address] [facility] [id number] [address] Apr, [facility] [id number] [address] Feb, [facility] [id number] [address] Feb, Arm paresthesia, left R20.2 [facility] [id number] [address] Feb, [facility] [address] [address] Dec, Essential hypertension I10 and Type 2 diabetes mellitus without complications E11.9 [facility] [id number] [place] [address] Nov, [facility] [id number] [place] [address] 99153- 2611 Nov, [facility] [id number] [place] [address] 84215- 4271 Oct, Type 2 diabetes mellitus without complications E11.9 ; Arthritis M19.90 and Systemic lupus erythematosus with other organ involvement, unspecified SLE type M32.19 [place] [id number] [place] [address]79- 8285 Oct, [place] [id number] [place] [address] 36993- 6500 Oct, Systemic lupus erythematosus with other organ involvement, unspecified SLE type M32.19 [place] [id number] [place] [address] 15954- 1574 Sep, [facility] [id number] [place] [address] 43993- 8185 Sep, Type 2 diabetes mellitus without complications E11.9 ; Anxiety F41.9 ; Dysuria R30.0 and Hypertension, benign I10 [place] [id number] [address] Sep, Type 2 diabetes mellitus without complications E11.9 [place] [id number] [address] Sep, Systemic lupus erythematosus with other organ involvement, unspecified SLE type M32.19 [facility] [address], [place] [address] Sep, Post herpetic neuralgia B02.29 [facility] [id number] [place] [address] 40743- 0005 Sep, Raynaud''s phenomenon without gangrene I73.00 [facility] [id number] [address] Sep, [facility] [address] [address] Aug, [facility] [id number] [place] [address] 33551- 2173 Aug, Type 2 diabetes mellitus without complications E11.9 [facility] [id number] [place] [address] 22468- 7447 19 Aug, 2017 [facility] [id number] [place] [address] 52051- 9353 18 Aug, 2017 [facility] [id number] [place] [address] 66300- 2515 14 Aug, 2017 Type 2 diabetes mellitus without complications E11.9 [facility] [id number] [place] [address] 45879- 2103 14 Aug, 2017 Systemic lupus erythematosus with other organ involvement, unspecified SLE type M32.19 [facility] [id number] [place] [address] 24728- 5499 05 Aug, 2017 [facility] [id number] [place] [address] 22295- 4170 22 Jul, 2017 [facility] [address] [address] 16 Jul, 2017 Raynaud''s phenomenon without gangrene I73.00 [facility] [id number] [place] [address] 21343- 6265 16 Jul, 2017 Dental examination Z01.20 [facility] [address] [address] 13 Jul, 2017 Type 2 diabetes mellitus without complications E11.9 [facility] [id number] [place] [address] 13842- 5863 Jul, Raynaud''s phenomenon without gangrene I73.00 ; Arthritis M19.90 and Hypertension, benign I10 [facility] [id number] [place] [address] 13319- 0428 08 Jul, 2017 Type 2 diabetes mellitus without complications E11.9 [facility] [id number] [place] [address] 08168- 4146 08 Jul, 2017 [facility] [id number] [place] [address] 87519- 8915 Jul, [facility] [id number] [place] [address] 11906- 7885 Jul, Type 2 diabetes mellitus without complications E11.9 [facility] [id number] [place] [address] 93057- 2169 Jun, Type 2 diabetes mellitus without complications E11.9 ; neurophysiology tech current use of insulin Z79.4 and Acute idiopathic gout of left hand M10.042 [facility] [id number] [place] [address] 87731- 5333 Jun, Type 2 diabetes mellitus without complications E11.9 and neurophysiology tech current use of insulin Z79.4 [facility] [id number] [place] [address] 95106- 5370 Jun, [facility] [id number] [place] [address] 35878- 9807 Jun, Type 2 diabetes mellitus without complications E11.9 [facility] [id number] [place] [address] 31824- 9847 Jun, [facility] [id number] [place] [address] 15811- 9016 Jun, Type 2 diabetes mellitus without complications E11.9 ; MCFP current use of insulin Z79.4 and Acute idiopathic gout of left hand M10.042 [facility] [id number] [place] [address] 99477- 0208 May, [place] [address] [address] May, Type 2 diabetes mellitus without complications E11.9 [place] [address] [address] May, Post herpetic neuralgia B02.29 [place] [address] [address] May, Type 2 diabetes mellitus without complications E11.9 [place] [id number] [address] Apr, Type 2 diabetes mellitus without complications E11.9 ; Chronic gout of multiple sites, unspecified cause M1A.09X0 and Anxiety F41.9 [place] [address] [address] Apr, [place] [id number] [place] [address] 75942- 6954 Apr, [place] [id number] [place] [address] 61694- 5095 Apr, Post herpetic neuralgia B02.29 [place] [id number] [place] [address] 91227- 8915 Aug, Type 2 diabetes mellitus without complications E11.9 [place] [address] [address] 14 Aug, 2016 Encounter to establish care Z76.89 ; Type 2 diabetes mellitus without complications E11.9 ; neurophysiology tech current use of insulin Z79.4 ; Essential hypertension I10 ; Chronic gout of multiple sites, unspecified cause M1A.09X0 ; Coronary artery disease involving [place] coronary artery of [place] heart without angina pectoris I25.10 ; PVD (peripheral vascular disease) I73.9 ; Financial difficulties Z59.8 and Anxiety F41.9 [place] [id number] [address] 05 Aug, 2016 IMMUNIZATIONS No Known Immunizations SOCIAL HISTORY Never Assessed REASON FOR VISIT PALS PLAN OF CARE VITAL SIGNS MEDICATIONS Medication Instructions Dosage Frequency Start Date End Date Duration Status NovoLog 100 UNIT/ML Subcutaneous 3 times a day with meals 30 umits Aug 90 days Active RESULTS No Results PROCEDURES [...]
--- OUTSIDE RECORDS SUMMARY | 2018-03-23 07:35 | XMS REPORT | Continuity of Care Document ---
Author Author [facility] Organization [facility] Address Unknown Phone Unavailable Allergies Active Description Code Type Severity Reaction Onset Reported/Identified Relationship to Patient Clinical Status Yes carvedilol [id number] Drug Allergy Unknown N/A 01/22/2010 Yes codeine [id number] Drug Allergy Unknown N/A 09/14/2014 Yes codeine [id number] Drug Allergy Unknown PATIENT HAS REC 06/08/2015 Medications There is no data. Problems Date Dx Coded Attending Type Code Diagnosis Diagnosed By 01/23/2010 Ot 250.00 01/23/2010 Ot 272.4 01/23/2010 Ot 274.9 01/23/2010 Ot 401.9 01/23/2010 Ot 414.01 01/23/2010 Ot V45.82 04/08/2010 Ot V45.82 04/08/2010 Ot V57.89 01/22/2011 Ot 250.00 01/22/2011 Ot 272.4 01/22/2011 Ot 274.9 01/22/2011 Ot 401.9 01/22/2011 Ot 414.01 01/22/2011 Ot 433.10 01/22/2011 Ot 780.79 01/22/2011 Ot 786.09 01/22/2011 Ot 786.59 01/22/2011 Ot V45.82 01/22/2011 Ot V58.63 01/22/2011 Ot V58.67 01/22/2011 Ot V58.69 11/08/2013 RICK CHAPIN FACC, RANJAN MARTINEZ CCDS Ot 250.00 DIAB DORINA WO COMPL, TYPE II OR UNSPEC TY 11/08/2013 RICK CHAPIN FACC, RANJAN GODFREYP CCDS Ot 272.4 HYPERLIPIDEMIA NEC/NOS 11/08/2013 RANJAN CABRERA MD, FACCP CCDS Ot 274.9 GOUT NOS 11/08/2013 RICK CHAPIN FACC, RANJAN GODFREYP CCDS Ot 401.9 HYPERTENSION NOS 11/08/2013 RICK CHAPIN FACC, RANJAN GODFREYP CCDS Ot 414.01 CORONARY ATHEROSCLEROSIS OF [place] CORON 11/08/2013 RICK CHAPIN FACC, RANJAN MARTINEZ CCDS Ot 414.4 CORONARY ATHEROSCLEROSIS DUE TO [place] 11/08/2013 RICK CHAPIN FACC, RANJAN FACP CCDS Ot 443.9 PERIPH VASCULAR DIS NOS 11/08/2013 RICK CHAPIN FACC, RANJAN FACP CCDS Ot 780.79 OTH MALAISE FATIGUE 11/08/2013 RICK CHAPIN FACC, RANJAN FACP CCDS Ot 786.09 RESPIRATORY ABNORM NEC 11/08/2013 RICK CHAPIN FACC, RANJAN GODFREYP CCDS Ot V45.82 PERCUTANEOUS TRANSLUM CORON ANGIOPLASTY 11/08/2013 RICK CHAPIN FACC, RANJAN GODFREYP CCDS Ot V58.69 OTH MED,LT,CURRENT USE 04/04/2014 LALI UMANZOR DOQUELINE S Ot 250.00 DIAB DORINA WO COMPL, TYPE II OR UNSPEC TY 04/04/2014 LALI UMANZOR DOQUELINE S Ot 274.9 GOUT NOS 04/04/2014 TRENTON UMANZOR DOLINE S Ot 401.9 HYPERTENSION NOS 04/04/2014 LALI UMANZOR DOQUELINE S Ot 410.71 AC MYOCARDIAL INFARCT,SUBENDO INFARCT,IN 04/04/2014 LALI UMANZOR DOQUELINE S Ot 414.01 CORONARY ATHEROSCLEROSIS OF [place] CORON 04/04/2014 LALI UMANZOR DOQUELINE S Ot 996.74 OTH COMPL DUE TO [facility] VASCULAR DEVICE,IMP 04/04/2014 LALI UMANZOR DOQUELINE S Ot V45.81 AORTOCORONARY BYPASS 04/04/2014 LALI UMANZOR DOQUELINE S Ot V58.67 LONG-TERM (CURRENT) USE OF INSULIN 04/14/2014 RAMIRO GILL MD Ot 250.00 DIAB DORINA WO COMPL, TYPE II OR UNSPEC TY 04/14/2014 RAMIRO GILL MD Ot 272.4 HYPERLIPIDEMIA NEC/NOS 04/14/2014 RAMIRO GILL MD Ot 274.9 GOUT NOS 04/14/2014 RAMIRO GILL MD Ot 401.9 HYPERTENSION NOS 04/14/2014 RAMIRO GILL MD Ot 411.1 INTERMED CORONARY SYND 04/14/2014 RAMIRO GILL MD Ot 414.01 CORONARY ATHEROSCLEROSIS OF [place] CORON 04/14/2014 RAMIRO GILL MD Ot 443.9 PERIPH VASCULAR DIS NOS 04/14/2014 RAMIRO GILL MD Ot V45.82 PERCUTANEOUS TRANSLUM CORON ANGIOPLASTY 04/14/2014 RAMIRO GILL MD Ot V58.67 LONG-TERM (CURRENT) USE OF INSULIN 04/14/2014 RAMIRO GILL MD Ot V58.69 OT MED,LT,CURRENT USE 06/27/2014 RICK CHAPIN FACC, ALI FACP CCDS Ot 250.00 DIAB DORINA WO COMPL, TYPE II OR UNSPEC TY 06/27/2014 RICK CHAPIN FACC, ALI FACP CCDS Ot 272.4 HYPERLIPIDEMIA NEC/NOS 06/27/2014 RICK CHAPIN FACC, ALI FACP CCDS Ot 274.9 GOUT NOS 06/27/2014 RICK CHAPIN FACC, ALI FACP CCDS Ot 275.2 DIS MAGNESIUM METABOLISM 06/27/2014 RICK CHAPIN FACC, ALI FACP CCDS Ot 401.9 HYPERTENSION NOS 06/27/2014 RICK CHAPIN FACSusana, ALI FACP CCDS Ot 414.01 CORONARY ATHEROSCLEROSIS OF [place] CORON 06/27/2014 RICK CHAPIN FACC, ALI FACP CCDS Ot 440.21 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 EXTREM W INTERMIT 06/27/2014 RICK CHAPIN FACC, ALI FACP CCDS Ot 440.4 CHRONIC TOTAL OCCLUSION OF ARTERY OF THE 06/27/2014 RICK CHAPIN FACC, RANJAN FACP CCDS Ot V45.82 PERCUTANEOUS TRANSLUM CORON ANGIOPLASTY 06/27/2014 RICK CHAPIN FACC, ALI FACP CCDS Ot V58.63 LONG-TERM(CURRENT)USE OF ANTIPLATELET/AN 06/27/2014 RICK CHAPIN FACC, ALI FACP CCDS Ot V58.69 OT MED,LT,CURRENT USE 07/08/2014 DIANA HUDSON MD Ot 272.4 HYPERLIPIDEMIA NEC/NOS 07/08/2014 DIANA HUDSON MD Ot 401.9 HYPERTENSION NOS 07/08/2014 DIANA HUDSON MD Ot 414.01 CORONARY ATHEROSCLEROSIS OF [place] CORON 07/08/2014 DIANA HUDSON MD Ot 440.21 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 EXTREM W INTERMIT 07/08/2014 DIANA HUDSON MD Ot 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.4 CHRONIC TOTAL OCCLUSION OF ARTERY OF THE 07/08/2014 DIANA HUDSON MD Ot V45.82 PERCUTANEOUS TRANSLUM CORON ANGIOPLASTY 07/08/2014 DIANA HUDSON MD Ot V58.63 LONG-TERM(CURRENT)USE OF ANTIPLATELET/AN 07/08/2014 DIANA HUDSON MD Ot V58.69 OTH MED,LT,CURRENT USE 07/10/2014 BLADIMIR MCLAIN CONSULTING TECHNICAL MANAGER Ot 997.2 SURG COMP-BRUNO VASC SYST 08/16/2014 Ot 414.00 08/16/2014 Ot V45.82 08/16/2014 Ot 413.9 08/16/2014 Ot 414.01 08/16/2014 Ot 786.05 08/16/2014 Ot 794.39 08/16/2014 Ot V58.69 08/16/2014 Ot V72.63 08/16/2014 Ot V72.81 08/16/2014 Ot V74.8 08/16/2014 Ot 250.00 08/16/2014 Ot 414.01 08/16/2014 Ot 433.10 08/16/2014 Ot 250.00 08/16/2014 Ot 272.4 08/16/2014 Ot 401.9 08/16/2014 Ot 413.9 08/16/2014 Ot 414.00 08/16/2014 Ot 780.79 08/16/2014 Ot 786.05 08/16/2014 Ot V58.63 08/16/2014 Ot V58.66 08/16/2014 Ot V58.67 08/16/2014 Ot V58.69 08/16/2014 Ot V72.63 08/16/2014 Ot 250.00 08/16/2014 Ot 272.4 08/16/2014 Ot 414.01 08/16/2014 Ot 443.9 08/16/2014 Ot 274.9 08/16/2014 JEAN-PIERRE PRITCHETT CONSULTING TECHNICAL MANAGER Ot 250.00 08/16/2014 JEAN-PIERRE PRITCHETT M CONSULTING TECHNICAL MANAGER Ot 272.4 08/16/2014 JEAN-PIERRE PRITCHETT CONSULTING TECHNICAL MANAGER Ot V76.44 08/16/2014 Ot 274.9 08/16/2014 Ot 250.00 08/16/2014 Ot 274.9 08/16/2014 Ot 414.00 08/16/2014 CHRISTIE UMANZOR DO Ot 250.02 08/16/2014 CHRISTIE UMANZOR DO Ot 272.4 08/16/2014 ORENDER DO, CHRISTIE S Ot 274.9 08/16/2014 ORENDER DO, CHRISTIE S Ot 401.9 08/16/2014 ORENDER DO, CHRISTIE S Ot 414.00 08/16/2014 RICK CHAPIN FACC, ALI FACP CCDS Ot 250.00 08/16/2014 RICK CHAPIN FACC, ALI FACP CCDS Ot 272.4 08/16/2014 RICK CHAPIN FACC, ALI FACP CCDS Ot 278.00 08/16/2014 RICK MD FACC, ALI FACP CCDS Ot 401.9 08/16/2014 RICK MD FACC, ALI FACP CCDS Ot 414.01 08/16/2014 RICK CHAPIN FACC, ALI FACP CCDS Ot 786.50 08/16/2014 RICK CHAPIN FACC, ALI FACP CCDS Ot V72.81 08/16/2014 RICK CHAPIN FACC, ALI FACP CCDS Ot V72.84 08/16/2014 NANER DO, CHRISTIE S Ot 250.00 08/16/2014 ERIKNDER DO, CHRISTIE S Ot 410.92 08/16/2014 ERIKNDER DO, CHRISTIE S Ot 780.79 08/16/2014 ORENDER DO, CHRISTIE S Ot 786.09 08/16/2014 ORENDER DO, CHRISTIE S Ot 787.91 08/16/2014 RAYNE BLADIMIR L CONSULTING TECHNICAL MANAGER Ot 789.09 08/16/2014 BLADIMIR MCLAIN L CONSULTING TECHNICAL MANAGER Ot 793.6 08/16/2014 RICK CHAPIN FACC, ALI FACP CCDS Ot 250.00 08/16/2014 RICK CHAPIN FACC, ALI FACP CCDS Ot 272.4 08/16/2014 RICK CHAPIN FACC, ALI FACP CCDS Ot 401.9 08/16/2014 RICK CHAPIN FACC, ALI FACP CCDS Ot 413.9 08/16/2014 RICK CHAPIN FACC, ALI FACP CCDS Ot 414.00 08/16/2014 RICK CHAPIN FACC, ALI FACP CCDS Ot 440.20 08/16/2014 RICK CHAPIN FACC, ALI FACP CCDS Ot 786.09 08/16/2014 JEAN-PIERRE PRITCHETT CONSULTING TECHNICAL MANAGER Ot 250.02 08/16/2014 JEAN-PIERRE PRITCHETT CONSULTING TECHNICAL MANAGER Ot 272.4 08/16/2014 JEAN-PIERRE PRITCHETT CONSULTING TECHNICAL MANAGER Ot 401.9 08/16/2014 BLADIMIR MCLAIN CONSULTING TECHNICAL MANAGER Ot 443.9 08/16/2014 BLADIMIR MCLAIN CONSULTING TECHNICAL MANAGER Ot 997.79 08/18/2014 Ot 414.00 08/18/2014 Ot V45.82 08/18/2014 Ot 413.9 08/18/2014 Ot 414.01 08/18/2014 Ot 786.05 08/18/2014 Ot 794.39 08/18/2014 Ot V58.69 08/18/2014 Ot V72.63 08/18/2014 Ot V72.81 08/18/2014 Ot V74.8 08/18/2014 Ot 250.00 08/18/2014 Ot 414.01 08/18/2014 Ot 433.10 08/18/2014 Ot 250.00 08/18/2014 Ot 272.4 08/18/2014 Ot 401.9 08/18/2014 Ot 413.9 08/18/2014 Ot 414.00 08/18/2014 Ot 780.79 08/18/2014 Ot 786.05 08/18/2014 Ot V58.63 08/18/2014 Ot V58.66 08/18/2014 Ot V58.67 08/18/2014 Ot V58.69 08/18/2014 Ot V72.63 08/18/2014 Ot 250.00 08/18/2014 Ot 272.4 08/18/2014 Ot 414.01 08/18/2014 Ot 443.9 08/18/2014 Ot 274.9 08/18/2014 ERWINJEAN-PIERRE REEDER CONSULTING TECHNICAL MANAGER Ot 250.00 08/18/2014 ERWINJEAN-PIERRE REEDER CONSULTING TECHNICAL MANAGER Ot 272.4 08/18/2014 LINUSRAMIROJEAN-PIERRE REEDER CONSULTING TECHNICAL MANAGER Ot V76.44 08/18/2014 Ot 274.9 08/18/2014 Ot 250.00 08/18/2014 Ot 274.9 08/18/2014 Ot 414.00 08/18/2014 CHRISTIE UMANZOR DO S Ot 250.02 08/18/2014 CHRISTIE UMANZOR DO S Ot 272.4 08/18/2014 CHRISTIE UMANZOR DO S Ot 274.9 08/18/2014 YAMIL MARSHALL CHRISTIE S Ot 401.9 08/18/2014 NANER , CHRISTIE S Ot 414.00 08/18/2014 RICK CHAPIN FACC, ALI FACP CCDS Ot 250.00 08/18/2014 RIKC MD FACC, ALI FACP CCDS Ot 272.4 08/18/2014 RICK MD FACC, ALI FACP CCDS Ot 278.00 08/18/2014 RICK MD FACC, ALI FACP CCDS Ot 401.9 08/18/2014 RICK MD FACC, ALI FACP CCDS Ot 414.01 08/18/2014 RICK MD FACC, ALI FACP CCDS Ot 786.50 08/18/2014 RICK CHAPIN FACC, ALI FACP CCDS Ot V72.81 08/18/2014 RICK MD FACC, ALI FACP CCDS Ot V72.84 08/18/2014 LALI UMANZOR DOQUELINE S Ot 250.00 08/18/2014 YAMIL MARSHALL, CHRISTIE S Ot 410.92 08/18/2014 NANER , CHRISTIE S Ot 780.79 08/18/2014 NANER , CHRISTIE S Ot 786.09 08/18/2014 YAMIL MARSHALL, CHRISTIE S Ot 787.91 08/18/2014 BLADIMIR MCLAIN CONSULTING TECHNICAL MANAGER Ot 789.09 08/18/2014 BLADIMIR MCLAIN L CONSULTING TECHNICAL MANAGER Ot 793.6 08/18/2014 RICK CHAPIN FACC, ALI FACP CCDS Ot 250.00 08/18/2014 RICK CHAPIN FACC, ALI FACP CCDS Ot 272.4 08/18/2014 RICK MD FACC, ALI FACP CCDS Ot 401.9 08/18/2014 RICK MD FACC, ALI FACP CCDS Ot 413.9 08/18/2014 RICK CHAPIN FACC, ALI FACP CCDS Ot 414.00 08/18/2014 RICK MD FACC, ALI FACP CCDS Ot 440.20 08/18/2014 RICK MD FACC, ALI FACP CCDS Ot 786.09 08/18/2014 JEAN-PIERRE PRITCHETT CONSULTING TECHNICAL MANAGER Ot 250.02 08/18/2014 JEAN-PIERRE PRITCHETT CONSULTING TECHNICAL MANAGER Ot 272.4 08/18/2014 JEAN-PIERRE PRITCHETT CONSULTING TECHNICAL MANAGER Ot 401.9 08/18/2014 ABIMBOLABLADIMIR MARADIAGA CONSULTING TECHNICAL MANAGER Ot 443.9 08/18/2014 BLADIMIR MCLAIN CONSULTING TECHNICAL MANAGER Ot 997.79 08/19/2014 DIANA HUDSON MD Ot 272.4 HYPERLIPIDEMIA NEC/NOS 08/19/2014 DIANA HUDSON MD Ot 401.9 HYPERTENSION NOS 08/19/2014 DIANA HUDSON MD Ot 412 OLD MYOCARDIAL INFARCT 08/19/2014 DIANA HUDSON MD Ot 414.01 CORONARY ATHEROSCLEROSIS OF [place] CORON 08/19/2014 DIANA HUDSON MD Ot 440.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9 09/14/2014 Ot 414.00 09/14/2014 Ot 780.79 09/14/2014 Ot 786.05 09/14/2014 Ot V58.63 09/14/2014 Ot V58.66 09/14/2014 Ot V58.67 09/14/2014 Ot V58.69 09/14/2014 Ot V72.63 09/14/2014 Ot 250.00 09/14/2014 Ot 272.4 09/14/2014 Ot 414.01 09/14/2014 Ot 443.9 09/14/2014 Ot 274.9 09/14/2014 LINUSBECELAEJEAN-PIERRE LOPES M CONSULTING TECHNICAL MANAGER Ot 250.00 09/14/2014 VANBECELAERE, JEAN-PIERRE M CONSULTING TECHNICAL MANAGER Ot 272.4 09/14/2014 VANBECELAERE, JEAN-PIERRE M CONSULTING TECHNICAL MANAGER Ot V76.44 09/14/2014 Ot 274.9 09/14/2014 Ot 250.00 09/14/2014 Ot 274.9 09/14/2014 Ot 414.00 09/14/2014 ORENDER DO, CHRISTIE S Ot 250.02 09/14/2014 ORENDER DO, CHRISTIE S Ot 272.4 09/14/2014 ORENDER DO, CHRISTIE S Ot 274.9 09/14/2014 ORENDER DO, CHRISTIE S Ot 401.9 09/14/2014 ORENDER DO, CHRISTIE S Ot 414.00 09/14/2014 RICK CHAPIN FAC, ALI FACP CCDS Ot 250.00 09/14/2014 RICK CHAPIN [facility], ALI FACP CCDS Ot 272.4 09/14/2014 RICK CHAPIN [facility], ALI FACP CCDS Ot 278.00 09/14/2014 RICK [facility], ALI FACP CCDS Ot 401.9 09/14/2014 RICK [facility], ALI FACP CCDS Ot 414.01 09/14/2014 RICK CHAPIN [facility], ALI FACP CCDS Ot 786.50 09/14/2014 RICK CHAPIN [facility], ALI FACP CCDS Ot V72.81 09/14/2014 RICK CHAP[facility], ALI FACP CCDS Ot V72.84 09/14/2014 ORENDER DO, CHRISTIE S Ot 250.00 09/14/2014 ORENDER DO, CHRISTIE S Ot 410.92 09/14/2014 ORENDER DO, CHRISTIE S Ot 780.79 09/14/2014 ORENDER DO, CHRISTIE S Ot 786.09 09/14/2014 ORENDER DO, CHRISTIE S Ot 787.91 09/14/2014 BLADIMIR MCLAIN CONSULTING TECHNICAL MANAGER Ot 789.09 09/14/2014 BLADIMIR MCLAIN CONSULTING TECHNICAL MANAGER Ot 793.6 09/14/2014 RICK CHAPIN [facility], ALI FACP CCDS Ot 250.00 09/14/2014 RICK CHAPIN [facility], ALI FACP CCDS Ot 272.4 09/14/2014 RICK CHAPIN [facility], ALI FACP CCDS Ot 401.9 09/14/2014 RICK CHAPIN [facility], ALI FACP CCDS Ot 413.9 09/14/2014 RICK CHAPIN [facility], ALI FACP CCDS Ot 414.00 09/14/2014 RICK CHAPIN [facility], ALI FACP CCDS Ot 440.20 09/14/2014 RICK CHAPIN [facility], ALI FACP CCDS Ot 786.09 09/14/2014 LINUSRAMIROJEAN-PIERRE REEDER CONSULTING TECHNICAL MANAGER Ot 250.02 09/14/2014 LINUSBETH JEAN-PIERRE Calloway CONSULTING TECHNICAL MANAGER Ot 272.4 09/14/2014 LINUSBETH JEAN-PIERRE Calloway CONSULTING TECHNICAL MANAGER Ot 401.9 09/14/2014 BLADIMIR MCLAIN CONSULTING TECHNICAL MANAGER Ot 443.9 09/14/2014 BLADIMIR MCLAIN CONSULTING TECHNICAL MANAGER Ot 997.79 09/14/2014 DIANA HUDSON MD Ot 447.0 09/15/2014 RAMIRO GILL MD Ot 250.00 DIAB DORINA WO COMPL, TYPE II OR UNSPEC TY 09/15/2014 RAMRIO GILL MD Ot 272.4 HYPERLIPIDEMIA NEC/NOS 09/15/2014 RAMIRO GILL MD Ot 401.9 HYPERTENSION NOS 09/15/2014 RAMIRO GILL MD Ot 412 OLD MYOCARDIAL INFARCT 09/15/2014 RAMIRO GILL MD Ot 414.01 CORONARY ATHEROSCLEROSIS OF [place] CORON 09/15/2014 RAMIRO GILL MD Ot 440.21 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 EXTREM W INTERMIT 09/15/2014 RAMIRO GILL MD Ot 440.4 CHRONIC TOTAL OCCLUSION OF ARTERY OF THE 09/15/2014 RAMIRO GILL MD Ot 786.59 09/18/2014 RAMIRO GILL MD Ot 250.00 DIAB DORINA WO COMPL, TYPE II OR UNSPEC TY 09/18/2014 RAMIRO GILL MD Ot 272.4 HYPERLIPIDEMIA NEC/NOS 09/18/2014 RAMIRO GILL MD Ot 401.9 HYPERTENSION NOS 09/18/2014 RAMIRO GILL MD Ot 411.1 INTERMED CORONARY SYND 09/18/2014 RAMIRO GILL MD Ot 414.01 CORONARY ATHEROSCLEROSIS OF [place] CORON 09/18/2014 RAMIRO GILL MD Ot V17.3 FAM HX-ISCHEM HEART DIS 09/18/2014 RAMIRO GILL MD Ot V45.82 PERCUTANEOUS TRANSLUM CORON ANGIOPLASTY 09/18/2014 RAMIRO GILL MD Ot V58.67 LONG-TERM (CURRENT) USE OF INSULIN 09/18/2014 RAMIRO GILL MD Ot V58.69 OTH MED,LT,CURRENT USE 12/22/2014 RICK CHAPIN FACC, ALI EPIFANIOP CCDS Ot 413.9 12/22/2014 RICK CHAPIN FACSusana, RANJAN GODFREYP CCDS Ot V57.89 01/03/2015 Ot 414.00 01/03/2015 Ot V45.82 01/03/2015 Ot 413.9 01/03/2015 Ot 414.01 01/03/2015 Ot 786.05 01/03/2015 Ot 794.39 01/03/2015 Ot V58.69 01/03/2015 Ot V72.63 01/03/2015 Ot V72.81 01/03/2015 Ot V74.8 01/03/2015 Ot 250.00 01/03/2015 Ot 414.01 01/03/2015 Ot 433.10 01/03/2015 Ot 250.00 01/03/2015 Ot 272.4 01/03/2015 Ot 401.9 01/03/2015 Ot 413.9 01/03/2015 Ot 414.00 01/03/2015 Ot 780.79 01/03/2015 Ot 786.05 01/03/2015 Ot V58.63 01/03/2015 Ot V58.66 01/03/2015 Ot V58.67 01/03/2015 Ot V58.69 01/03/2015 Ot V72.63 01/03/2015 Ot 250.00 01/03/2015 Ot 272.4 01/03/2015 Ot 414.01 01/03/2015 Ot 443.9 01/03/2015 Ot 274.9 01/03/2015 JEAN-PIERRE PRITCHETT CONSULTING TECHNICAL MANAGER Ot 250.00 01/03/2015 JEAN-PIERRE PRITCHETTP Ot 272.4 01/03/2015 JEAN-PIERRE PRITCHETT CONSULTING TECHNICAL MANAGER Ot V76.44 01/03/2015 Ot 274.9 01/03/2015 Ot 250.00 01/03/2015 Ot 274.9 01/03/2015 Ot 414.00 01/03/2015 ORENDER DO, CHRISTIE S Ot 250.02 01/03/2015 ORENDER DO, CHRISTIE S Ot 272.4 01/03/2015 ORENDER DO, CHRISTIE S Ot 274.9 01/03/2015 ORENDER DO, CHRISTIE S Ot 401.9 01/03/2015 ORENDER DO, CHRISTIE S Ot 414.00 01/03/2015 RICK CHAPIN FACC, ALI FACP CCDS Ot 250.00 01/03/2015 RICK CHAPIN FACC, ALI FACP CCDS Ot 272.4 01/03/2015 RICK CHAPIN FACC, ALI FACP CCDS Ot 278.00 01/03/2015 RICK CHAPIN FACC, ALI FACP CCDS Ot 401.9 01/03/2015 RICK CHAPIN FACC, ALI FACP CCDS Ot 414.01 01/03/2015 RICK CHAPIN FACC, ALI FACP CCDS Ot 786.50 01/03/2015 RICK CHAPIN FACC, ALI FACP CCDS Ot V72.81 01/03/2015 RICK CHAPIN FACC, ALI FACP CCDS Ot V72.84 01/03/2015 ERIKNDER DO, CHRISTIE S Ot 250.00 01/03/2015 ORENDER DO, CHRISTIE S Ot 410.92 01/03/2015 ORENDER DO, CHRISTIE S Ot 780.79 01/03/2015 ORENDER DO, CHRISTIE S Ot 786.09 01/03/2015 ORENDER DO, CHRISTIE S Ot 787.91 01/03/2015 BLADIMIR MCLAIN L CONSULTING TECHNICAL MANAGER Ot 789.09 01/03/2015 BLADIMIR MCLAIN L CONSULTING TECHNICAL MANAGER Ot 793.6 01/03/2015 RICK GODFREYC, ALI FACP CCDS Ot 250.00 01/03/2015 RICK GODFREYC, ALI FACP CCDS Ot 272.4 01/03/2015 RICK CHAPIN FACC, ALI FACP CCDS Ot 401.9 01/03/2015 RICK GODFREYC, ALI FACP CCDS Ot 413.9 01/03/2015 RICK CHAPIN FACC, ALI FACP CCDS Ot 414.00 01/03/2015 RICK GODFREYC, ALI FACP CCDS Ot 440.20 01/03/2015 RICK CHAPIN FACC, ALI FACP CCDS Ot 786.09 01/03/2015 JEAN-PIERRE PRITCHETT CONSULTING TECHNICAL MANAGER Ot 250.02 01/03/2015 LINUSRAMIROJEAN-PIERRE REEDER M CONSULTING TECHNICAL MANAGER Ot 272.4 01/03/2015 LINUSRAMIROJEAN-PIERRE REEDER M CONSULTING TECHNICAL MANAGER Ot 401.9 01/03/2015 BLADIMIR MCLAIN CONSULTING TECHNICAL MANAGER Ot 443.9 01/03/2015 ABIMBOLABLADIMIR MARADIAGA L CONSULTING TECHNICAL MANAGER Ot 997.79 01/03/2015 TRISTAN CHAPIN, DIANA Ibrahim Ot 447.0 01/03/2015 RICK CHAPIN FAC, ALI FACP CCDS Ot 413.9 01/03/2015 RICK GODFREYC, ALI FACP CCDS Ot V57.89 01/05/2015 RICK CHAPIN FACC, ALI FACP CCDS Ot 413.9 ANGINA PECTORIS NEC/NOS 01/05/2015 RICK CHAPIN FACC, ALI FACP CCDS Ot V57.89 REHABILITATION PROC NEC 03/13/2015 RICK CHAPIN FAC, ALI FACP CCDS Ot 250.00 03/13/2015 RICK GODFREY, ALI FACP CCDS Ot 272.4 03/13/2015 RICK CHAPIN FAC, ALI FACP CCDS Ot 401.9 03/13/2015 RICK CHAPIN FACC, ALI FACP CCDS Ot 413.9 03/13/2015 RICK CHAPIN FAC, ALI FACP CCDS Ot 414.00 03/13/2015 RICK GODFREY, ALI FACP CCDS Ot 443.9 04/24/2015 Ot 414.00 04/24/2015 Ot V45.82 04/24/2015 Ot 413.9 04/24/2015 Ot 414.01 04/24/2015 Ot 786.05 04/24/2015 Ot 794.39 04/24/2015 Ot V58.69 04/24/2015 Ot V72.63 04/24/2015 Ot V72.81 04/24/2015 Ot V74.8 04/24/2015 Ot 250.00 04/24/2015 Ot 414.01 04/24/2015 Ot 433.10 04/24/2015 Ot 250.00 04/24/2015 Ot 272.4 04/24/2015 Ot 401.9 04/24/2015 Ot 413.9 04/24/2015 Ot 414.00 04/24/2015 Ot 780.79 04/24/2015 Ot 786.05 04/24/2015 Ot V58.63 04/24/2015 Ot V58.66 04/24/2015 Ot V58.67 04/24/2015 Ot V58.69 04/24/2015 Ot V72.63 04/24/2015 Ot 250.00 04/24/2015 Ot 272.4 04/24/2015 Ot 414.01 04/24/2015 Ot 443.9 04/24/2015 Ot 274.9 04/24/2015 SHREYASJEAN-PIERRE M CONSULTING TECHNICAL MANAGER Ot 250.00 04/24/2015 SHREYASBRONSONSA M CONSULTING TECHNICAL MANAGER Ot 272.4 04/24/2015 SHREYASJEAN-PIERRE M CONSULTING TECHNICAL MANAGER Ot V76.44 04/24/2015 Ot 274.9 04/24/2015 Ot 250.00 04/24/2015 Ot 274.9 04/24/2015 Ot 414.00 04/24/2015 ERIKNDER DO, CHRISTIE S Ot 250.02 04/24/2015 ERIKNDER DO, CHRISTIE S Ot 272.4 04/24/2015 ERIKNDER DO, CHRISTIE S Ot 274.9 04/24/2015 ERIKNDER DO, CHRISTIE S Ot 401.9 04/24/2015 YAMIL DOTRENTONCHRISTIE S Ot 414.00 04/24/2015 RICK CHAPIN FACC, RANJAN FACP CCDS Ot 250.00 04/24/2015 RICK CHAPIN FACC, RANJAN FACP CCDS Ot 272.4 04/24/2015 RICK CHAPIN FACC, ALI FACP CCDS Ot 278.00 04/24/2015 RICK CHAPIN FACC, ALI FACP CCDS Ot 401.9 04/24/2015 RICK CHAPIN FACC, ALI FACP CCDS Ot 414.01 04/24/2015 RICK CHAPIN FACC, ALI FACP CCDS Ot 786.50 04/24/2015 RICK CHAPIN FACC, ALI FACP CCDS Ot V72.81 04/24/2015 RICK CHAPIN FACC, ALI FACP CCDS Ot V72.84 04/24/2015 ORENDER DO, CHRISTIE S Ot 250.00 04/24/2015 ORENDER DO, CHRISTIE S Ot 410.92 04/24/2015 ORENDER DO, CHRISTIE S Ot 780.79 04/24/2015 ORENDER DO, CHRISTIE S Ot 786.09 04/24/2015 ORENDER DO, CHRISTIE S Ot 787.91 04/24/2015 BAIHIRENJASMINBLADIMIR L CONSULTING TECHNICAL MANAGER Ot 789.09 04/24/2015 BAIMA, BLADIMIR L CONSULTING TECHNICAL MANAGER Ot 793.6 04/24/2015 RICK CHAPIN FACC, ALI FACP CCDS Ot 250.00 04/24/2015 RICK CHAPIN FACC, ALI FACP CCDS Ot 272.4 04/24/2015 RICK CHAPIN FACC, ALI FACP CCDS Ot 401.9 04/24/2015 RICK CHAPIN FACC, ALI FACP CCDS Ot 413.9 04/24/2015 RICK CHAPIN FACC, ALI FACP CCDS Ot 414.00 04/24/2015 RICK CHAPIN FACC, ALI FACP CCDS Ot 440.20 04/24/2015 RICK CHAPIN FACC, ALI FACP CCDS Ot 786.09 04/24/2015 SHREYAS, JEAN-PIERRE M CONSULTING TECHNICAL MANAGER Ot 250.02 04/24/2015 VANBECELAERE, JEAN-PIERRE M CONSULTING TECHNICAL MANAGER Ot 272.4 04/24/2015 VANBECELAERE, JEAN-PIERRE M CONSULTING TECHNICAL MANAGER Ot 401.9 04/24/2015 BLADIMIR MCLAIN L CONSULTING TECHNICAL MANAGER Ot 443.9 04/24/2015 RAYNE BLADIMIR L CONSULTING TECHNICAL MANAGER Ot 997.79 04/24/2015 DIANA HUDSON MD Ot 447.0 04/24/2015 RICK CHAPIN FACC, ALI FACP CCDS Ot 250.00 04/24/2015 RICK GODFREYC, ALI FACP CCDS Ot 272.4 04/24/2015 RICK CHAPIN FACC, ALI FACP CCDS Ot 401.9 04/24/2015 RICK GODFREYC, ALI FACP CCDS Ot 413.9 04/24/2015 RICK GODFREYC, ALI FACP CCDS Ot 414.00 04/24/2015 RICK CHAPIN FACC, ALI FACP CCDS Ot 443.9 04/24/2015 JEAN-PIERRE PRITCHETT CONSULTING TECHNICAL MANAGER Ot 250.00 04/24/2015 JEAN-PIERRE PRITCHETT CONSULTING TECHNICAL MANAGER Ot 272.4 04/24/2015 LINUSRAMIROJEAN-PIERRE REEDER CONSULTING TECHNICAL MANAGER Ot 274.9 04/24/2015 RICK CHAPIN FACC, RANJAN FACP CCDS Ot 250.00 DIAB DORINA WO COMPL, TYPE II OR UNSPEC TY 04/24/2015 RICK CHAPIN FACC, ALI FACP CCDS Ot 274.9 GOUT NOS 04/24/2015 RICK CHAPIN FACC, ALI FACP CCDS Ot 275.2 DIS MAGNESIUM METABOLISM 04/24/2015 RICK CHAPIN FACC, RANJAN FACP CCDS Ot 300.00 ANXIETY STATE NOS 04/24/2015 RICK CHAPIN FACC, RANJAN FACP CCDS Ot 414.01 CORONARY ATHEROSCLEROSIS OF [place] CORON 04/24/2015 RICK CHAPIN FACC, RANJAN FACP CCDS Ot 414.4 CORONARY ATHEROSCLEROSIS DUE TO [place] 04/24/2015 RICK CHAPIN FACC, RANJAN FACP CCDS Ot 786.50 CHEST PAIN NOS 04/24/2015 RICK CHAPIN FACC, RANJAN FACP CCDS Ot V45.82 PERCUTANEOUS TRANSLUM CORON ANGIOPLASTY 04/24/2015 RICK CHAPIN FACC, RANJAN FACP CCDS Ot V58.69 OT MED,LT,CURRENT USE 04/25/2015 Ot 414.00 04/25/2015 Ot V45.82 04/25/2015 Ot 413.9 04/25/2015 Ot 414.01 04/25/2015 Ot 786.05 04/25/2015 Ot 794.39 04/25/2015 Ot V58.69 04/25/2015 Ot V72.63 04/25/2015 Ot V72.81 04/25/2015 Ot V74.8 04/25/2015 Ot 250.00 04/25/2015 Ot 414.01 04/25/2015 Ot 433.10 04/25/2015 Ot 250.00 04/25/2015 Ot 272.4 04/25/2015 Ot 401.9 04/25/2015 Ot 413.9 04/25/2015 Ot 414.00 04/25/2015 Ot 780.79 04/25/2015 Ot 786.05 04/25/2015 Ot V58.63 04/25/2015 Ot V58.66 04/25/2015 Ot V58.67 04/25/2015 Ot V58.69 04/25/2015 Ot V72.63 04/25/2015 Ot 250.00 04/25/2015 Ot 272.4 04/25/2015 Ot 414.01 04/25/2015 Ot 443.9 04/25/2015 Ot 274.9 04/25/2015 JEAN-PIERRE PRITCHETT M CONSULTING TECHNICAL MANAGER Ot 250.00 04/25/2015 VANBECELAEREJEAN-PIERRE M CONSULTING TECHNICAL MANAGER Ot 272.4 04/25/2015 VANBECELAEREBRONSONSA M CONSULTING TECHNICAL MANAGER Ot V76.44 04/25/2015 Ot 274.9 04/25/2015 Ot 250.00 04/25/2015 Ot 274.9 04/25/2015 Ot 414.00 04/25/2015 ERIKNDER DO, CHRISTIE S Ot 250.02 04/25/2015 ORENDER DO, CHRISTIE S Ot 272.4 04/25/2015 ERIKNDER DO CHRISTIE S Ot 274.9 04/25/2015 ORENDER DO, CHRISTIE S Ot 401.9 04/25/2015 ORENDER DO, CHRISTIE S Ot 414.00 04/25/2015 RICK CHAPIN FACC, ALI FACP CCDS Ot 250.00 04/25/2015 RICK CHAPIN FACC, ALI FACP CCDS Ot 272.4 04/25/2015 RICK CHAPIN FACC, ALI FACP CCDS Ot 278.00 04/25/2015 RICK CHAPIN FACC, ALI FACP CCDS Ot 401.9 04/25/2015 RICK CHAPIN FACC, ALI FACP CCDS Ot 414.01 04/25/2015 RICK CHAPIN FACC, ALI FACP CCDS Ot 786.50 04/25/2015 RICK CHAPIN FACC, ALI FACP CCDS Ot V72.81 04/25/2015 RICK CHAPIN FACC, ALI FACP CCDS Ot V72.84 04/25/2015 ERIKNDER DOLALICHRISTIE S Ot 250.00 04/25/2015 ORENDER DO, CHRISTIE S Ot 410.92 04/25/2015 ORENDER DO, CHRISTIE S Ot 780.79 04/25/2015 ERIKNDER DO, CHRISTIE S Ot 786.09 04/25/2015 CHRISTIE UMANZOR DO Ot 787.91 04/25/2015 RAYNEBLADIMIR L CONSULTING TECHNICAL MANAGER Ot 789.09 04/25/2015 BAIMAJASMINBLADIMIR L CONSULTING TECHNICAL MANAGER Ot 793.6 04/25/2015 [facility], ALI FACP CCDS Ot 250.00 04/25/2015 RICK [facility] FAC, ALI FACP CCDS Ot 272.4 04/25/2015 [facility], ALI FACP CCDS Ot 401.9 04/25/2015 [facility], ALI FACP CCDS Ot 413.9 04/25/2015 [facility], ALI FACP CCDS Ot 414.00 04/25/2015 [facility], ALI FACP CCDS Ot 440.20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 09/12/2015 ORENDER DO, CHRISTIE S Ot M62.81 09/12/2015 ORENDER DO, CHRISTIE S Ot R47.81 SLURRED SPEECH 09/12/2015 [facility], CHRISTIE S Ot Z79.4 ACID BLEACHER (CURRENT) USE OF INSULIN 05/21/2016 LACHELLE DO, MARICARMEN K Ot E11.9 TYPE 2 DIABETES MELLITUS WITHOUT COMPLIC 05/21/2016 LACHELLE DO, MARICARMEN K Ot F13.10 SEDATIVE, HYPNOTIC OR ANXIOLYTIC ABUSE, 05/21/2016 LACHELLE DO, MARICARMEN K Ot F15.10 OTHER STIMULANT ABUSE, UNCOMPLICATED 05/21/2016 LACHELLE DO, MARICARMEN K Ot F41.9 ANXIETY DISORDER, UNSPECIFIED 05/21/2016 LACHELLE DO, MARICARMEN K Ot G45.9 TRANSIENT CEREBRAL ISCHEMIC ATTACK, UNSP 05/21/2016 LACHELLE DO, MARICARMEN K Ot I10 ESSENTIAL (PRIMARY) HYPERTENSION 05/21/2016 LACHELLE DO, MARICARMEN K Ot R29.810 FACIAL WEAKNESS 05/21/2016 LACHELLE DO, MARICARMEN K Ot Z79.4 ACID BLEACHER (CURRENT) USE OF INSULIN 05/21/2016 LACHELLE DO, MARICARMEN K Ot Z79.82 ACID BLEACHER (CURRENT) USE OF ASPIRIN 05/21/2016 LACHELLE DO, MARICARMEN K Ot Z79.899 OTHER CARE HOME (CURRENT) DRUG THERAPY 05/21/2016 LACHELLE DO, MARICARMEN K Ot Z91.19 PATIENT'S NONCOMPLIANCE W OT MEDICAL TR 05/22/2016 LACHELLE DO, MARICARMEN K Ot E11.9 TYPE 2 DIABETES MELLITUS WITHOUT COMPLIC 05/22/2016 LACHELLE DO, MARICARMEN K Ot F13.10 SEDATIVE, HYPNOTIC OR ANXIOLYTIC ABUSE, 05/22/2016 LACHELLE DO, MARICARMEN K Ot F15.10 OTHER STIMULANT ABUSE, UNCOMPLICATED 05/22/2016 LACHELLE DO, MARICARMEN K Ot F41.9 ANXIETY DISORDER, UNSPECIFIED 05/22/2016 LACHELLE DO, MARICARMEN K Ot G45.9 TRANSIENT CEREBRAL ISCHEMIC ATTACK, UNSP 05/22/2016 LACHELLE DO, MARICARMEN K Ot I10 ESSENTIAL (PRIMARY) HYPERTENSION 05/22/2016 LACHELLE DO, MARICARMEN K Ot R29.810 FACIAL WEAKNESS 05/22/2016 LACHELLE DO, MARICARMEN K Ot Z79.4 ACID BLEACHER (CURRENT) USE OF INSULIN 05/22/2016 LACHELLE DO, MARICARMEN K Ot Z79.82 CARE HOME (CURRENT) USE OF ASPIRIN 05/22/2016 LACHELLE DO, MARICARMEN K Ot Z79.899 OTHER ACID BLEACHER (CURRENT) DRUG THERAPY 05/22/2016 MARICARMEN LAROSE DO Ot Z91.19 PATIENT'S NONCOMPLIANCE W [facility] MEDICAL TR 09/19/2016 Ot 250.00 DIAB DORINA WO COMPL, TYPE II OR UNSPEC TY 09/19/2016 Ot 272.4 HYPERLIPIDEMIA NEC/NOS 09/19/2016 Ot 414.01 CORONARY ATHEROSCLEROSIS OF [place] CORON 09/19/2016 Ot 443.9 PERIPH VASCULAR DIS NOS 09/19/2016 Ot 274.9 GOUT NOS 09/19/2016 VANBECELAERE, JEAN-PIERRE M CONSULTING TECHNICAL MANAGER Ot 250.00 DIAB DORINA WO COMPL, TYPE II OR UNSPEC TY 09/19/2016 VANBECELAERE, JEAN-PIERRE M CONSULTING TECHNICAL MANAGER Ot 272.4 HYPERLIPIDEMIA NEC/NOS 09/19/2016 VANBECELAERE, JEAN-PIERRE M CONSULTING TECHNICAL MANAGER Ot V76.44 SCREEN MAL NEOP-PROSTATE 09/19/2016 Ot 274.9 GOUT NOS 09/19/2016 Ot 250.00 DIAB DORINA WO COMPL, TYPE II OR UNSPEC TY 09/19/2016 Ot 274.9 GOUT NOS 09/19/2016 Ot 414.00 CORON ATHEROSCLER NOS TYPE VESSEL, NATIV 09/19/2016 ORENDER DO, CHRISTIE S Ot 250.02 DIAB DORINA WO COMPL, TYPE II OR UNSPEC TY 09/19/2016 ORENDER DO, CHRISTIE S Ot 272.4 HYPERLIPIDEMIA NEC/NOS 09/19/2016 ORENDER DO, CHRISTIE S Ot 274.9 GOUT NOS 09/19/2016 ORENDER DO, CHRISTIE S Ot 401.9 HYPERTENSION NOS 09/19/2016 ORENDER DO, CHRISTIE S Ot 414.00 CORON ATHEROSCLER NOS TYPE VESSEL, NATIV 09/19/2016 RICK CHAPIN FACC, ALI FACP CCDS Ot 250.00 DIAB DORINA WO COMPL, TYPE II OR UNSPEC TY 09/19/2016 RICK CHAPIN FACC, ALI FACP CCDS Ot 272.4 HYPERLIPIDEMIA NEC/NOS 09/19/2016 RICK CHAPIN FACC, ALI FACP CCDS Ot 278.00 OBESITY, NOS 09/19/2016 RICK CHAPIN FACC, ALI FACP CCDS Ot 401.9 HYPERTENSION NOS 09/19/2016 RICK CHAPIN FACC, ALI FACP CCDS Ot 414.01 CORONARY ATHEROSCLEROSIS OF [place] CORON 09/19/2016 RICK CHAPIN FACC, ALI FACP CCDS Ot 786.50 CHEST PAIN NOS 09/19/2016 RICK CHAPIN FACC, RANJAN FACP CCDS Ot V72.81 [id number] CARDIOVASCULAR 09/19/2016 RICK CHAPIN FACC, ALI FACP CCDS Ot V72.84 EXAM PRE-OPERATIVE NOS 09/19/2016 TRENT[place] UMANZOR DOLINE S Ot 250.00 DIAB DORINA WO COMPL, TYPE II OR UNSPEC TY 09/19/2016 YAMIL MARSHALL, CHRISTIE S Ot 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,UNSPEC SITE,SUBSEQ 09/19/2016 YAMIL MARSHALL, CHRISTIE S Ot 780.79 OTH MALAISE FATIGUE 09/19/2016 YAMIL MARSHALL, CHRISTIE S Ot 786.09 RESPIRATORY ABNORM NEC 09/19/2016 ERIKWINTER MARSHALL, CHRISTIE S Ot 787.91 DIARRHEA 09/19/2016 BLADIMIR MCLAIN CONSULTING TECHNICAL MANAGER Ot 789.09 ABDOMINAL PAIN, OTHER SPECIFIED SITE 09/19/2016 BLADIMIR MCLAIN CONSULTING TECHNICAL MANAGER Ot 793.6 NOSP (ABN) FINDINGS ON RADIOLOGICAL OT 09/19/2016 RICK CHAPIN FACC, RANJAN FACP CCDS Ot 250.00 DIAB [place] WO COMPL, TYPE II OR UNSPEC TY 09/19/2016 RICK CHAPIN FACC, ALI FACP CCDS Ot 272.4 HYPERLIPIDEMIA NEC/NOS 09/19/2016 RICK CHAPIN FACC, ALI FACP CCDS Ot 401.9 HYPERTENSION NOS 09/19/2016 RICK CHAPIN FACC, ALI FACP CCDS Ot 413.9 ANGINA PECTORIS NEC/NOS 09/19/2016 RICK CHAPIN FACC, ALI FACP CCDS Ot 414.00 CORON ATHEROSCLER NOS TYPE VESSEL, NATIV 09/19/2016 RICK CHAPIN FACC, ALI FACP CCDS Ot 440.20 ATHEROSCLEROSIS [place] ARTERIES EXTREMIT 09/19/2016 RICK CHAPIN FACC, ALI FACP CCDS Ot 786.09 RESPIRATORY ABNORM NEC 09/19/2016 JEAN-PIERRE PRITCHETT M CONSULTING TECHNICAL MANAGER Ot 250.02 DIAB DORINA WO COMPL, TYPE II OR UNSPEC TY 09/19/2016 JEAN-PIERRE PRITCHETT M CONSULTING TECHNICAL MANAGER Ot 272.4 HYPERLIPIDEMIA NEC/NOS 09/19/2016 JEAN-PIERRE PRITCHETT M CONSULTING TECHNICAL MANAGER Ot 401.9 HYPERTENSION NOS 09/19/2016 BLADIMIR MCLAIN CONSULTING TECHNICAL MANAGER Ot 443.9 PERIPH VASCULAR DIS NOS 09/19/2016 BLADIMIR MCLAIN CONSULTING TECHNICAL MANAGER Ot 997.79 VASCULAR COMPL OTHER VESSELS 09/19/2016 TRISTAN CHAPIN, DIANA Ibrahim Ot 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 09/19/2016 RICK CHAPIN FACC, ALI FACP CCDS Ot 250.00 DIAB DORINA WO COMPL, TYPE II OR UNSPEC TY 09/19/2016 RICK CHAPIN FACC, ALI FACP CCDS Ot 272.4 HYPERLIPIDEMIA NEC/NOS 09/19/2016 RICK CHAPIN FACC, ALI FACP CCDS Ot 401.9 HYPERTENSION NOS 09/19/2016 RICK CHAPIN FACC, ALI FACP CCDS Ot 413.9 ANGINA PECTORIS NEC/NOS 09/19/2016 RICK CHAPIN FACC, ALI FACP CCDS Ot 414.00 CORON ATHEROSCLER NOS TYPE VESSEL, NATIV 09/19/2016 RICK CHAPIN FACC, ALI FACP CCDS Ot 443.9 PERIPH VASCULAR DIS NOS 09/19/2016 VANDAVIDRE, JEAN-PIERRE M CONSULTING TECHNICAL MANAGER Ot 250.00 DIAB DORINA WO COMPL, TYPE II OR UNSPEC TY 09/19/2016 VANBECELAERE, JEAN-PIERRE M CONSULTING TECHNICAL MANAGER Ot 272.4 HYPERLIPIDEMIA NEC/NOS 09/19/2016 VANBECELAERE, JEAN-PIERRE M CONSULTING TECHNICAL MANAGER Ot 274.9 GOUT NOS 09/19/2016 VANBECELAERE, JEAN-PIERRE M CONSULTING TECHNICAL MANAGER Ot E11.65 TYPE 2 DIABETES MELLITUS WITH HYPERGLYCE 09/19/2016 VANBECELAERE, JEAN-PIERRE M CONSULTING TECHNICAL MANAGER Ot E78.5 HYPERLIPIDEMIA, UNSPECIFIED 09/19/2016 VANBECELAERE, JEAN-PIERRE M CONSULTING TECHNICAL MANAGER Ot M10.9 GOUT, UNSPECIFIED 09/19/2016 RICK CHAPIN FACC, RANJAN FACP CCDS Ot E11.9 TYPE 2 DIABETES MELLITUS WITHOUT COMPLIC 09/19/2016 RICK CHAPIN FACC, RANJAN FACP CCDS Ot E78.5 HYPERLIPIDEMIA, UNSPECIFIED 09/19/2016 RICK CHAPIN FACC, ALI FACP CCDS Ot I10 ESSENTIAL (PRIMARY) HYPERTENSION 09/19/2016 RICK CHAPIN FACC, ALI FACP CCDS Ot I25.10 ATHSCL HEART DISEASE OF [place] CORONARY 09/19/2016 RICK CHAPIN FACC, ALI FACP CCDS Ot I73.9 PERIPHERAL VASCULAR DISEASE, UNSPECIFIED 09/19/2016 RICK CHAPIN FACC, ALI FACP CCDS Ot I77.9 DISORDER OF ARTERIES AND ARTERIOLES, UNS 09/19/2016 RICK CHAPIN FAC, RANJAN MARTINEZ CCDS Ot K27.[address], SITE UNSP, UNSP AC OR CHR 09/19/2016 RICK CHAPIN FACSusana, RANJAN MARTINEZ CCDS Ot R07.9 CHEST PAIN, UNSPECIFIED 09/19/2016 SHREYAS JEAN-PIERRE M CONSULTING TECHNICAL MANAGER Ot E04.9 NONTOXIC GOITER, UNSPECIFIED 09/19/2016 JEAN-PIERRE PRITCHETT M CONSULTING TECHNICAL MANAGER Ot R94.6 ABNORMAL RESULTS OF THYROID FUNCTION STACY 09/23/2016 ABIMBOLAMA BLADIMIR L CONSULTING TECHNICAL MANAGER Ot E78.4 OTHER HYPERLIPIDEMIA 09/23/2016 BAIMA, BLADIMIR L CONSULTING TECHNICAL MANAGER Ot I10 ESSENTIAL (PRIMARY) HYPERTENSION 09/23/2016 ABIMBOLAMA BLADIMIR L CONSULTING TECHNICAL MANAGER Ot I25.10 ATHSCL HEART DISEASE OF [place] CORONARY 09/23/2016 RAYNE BLADIMIR L CONSULTING TECHNICAL MANAGER Ot I65.23 OCCLUSION AND STENOSIS OF [place] 09/23/2016 RAYNE BLADIMIR L CONSULTING TECHNICAL MANAGER Ot R06.09 OTHER FORMS OF DYSPNEA 09/23/2016 ABIMBOLAMA BLADIMIR L CONSULTING TECHNICAL MANAGER Ot E11.9 TYPE 2 DIABETES MELLITUS WITHOUT COMPLIC 09/23/2016 ABIMBOLAMA BLADIMIR L CONSULTING TECHNICAL MANAGER Ot E78.5 HYPERLIPIDEMIA, UNSPECIFIED 09/23/2016 BAIMA BLADIMIR L CONSULTING TECHNICAL MANAGER Ot F41.9 ANXIETY DISORDER, UNSPECIFIED 09/23/2016 BAIMA BLADIMIR L CONSULTING TECHNICAL MANAGER Ot I10 ESSENTIAL (PRIMARY) HYPERTENSION 09/23/2016 ABIMBOLAMA BLADIMIR L CONSULTING TECHNICAL MANAGER Ot I25.10 ATHSCL HEART DISEASE OF [place] CORONARY 09/23/2016 ABIMBOLAMA BLADIMIR L CONSULTING TECHNICAL MANAGER Ot I25.84 CORONARY ATHEROSCLEROSIS DUE TO [place] 09/23/2016 ABIMBOLAMA BLADIMIR L CONSULTING TECHNICAL MANAGER Ot R06.09 OTHER FORMS OF DYSPNEA 09/23/2016 RAYNE BLADIMIR L CONSULTING TECHNICAL MANAGER Ot R07.89 OTHER CHEST PAIN 09/23/2016 RAYNE BLADIMIR L CONSULTING TECHNICAL MANAGER Ot Z79.899 OTHER CARE HOME (CURRENT) DRUG THERAPY 09/23/2016 RAYNE BLADIMIR L CONSULTING TECHNICAL MANAGER Ot Z95.5 PRESENCE OF CORONARY ANGIOPLASTY IMPLANT 09/25/2016 RAYNE BLADIMIR L CONSULTING TECHNICAL MANAGER Ot E78.4 OTHER HYPERLIPIDEMIA 09/25/2016 BAIMA, BLADIMIR L CONSULTING TECHNICAL MANAGER Ot I10 ESSENTIAL (PRIMARY) HYPERTENSION 09/25/2016 BAIMA, BLADIMIR L CONSULTING TECHNICAL MANAGER Ot I25.10 ATHSCL HEART DISEASE OF [place] CORONARY 09/25/2016 BAIMA, BLADIMIR L CONSULTING TECHNICAL MANAGER Ot I65.23 OCCLUSION AND STENOSIS OF [place] 09/25/2016 BAIMA, BLADIMIR L CONSULTING TECHNICAL MANAGER Ot R06.09 OTHER FORMS OF DYSPNEA 10/08/2016 BAIHIREN BLADIMIR L CONSULTING TECHNICAL MANAGER Ot E78.4 OTHER HYPERLIPIDEMIA 10/08/2016 BAIMA, BLADIMIR L CONSULTING TECHNICAL MANAGER Ot I10 ESSENTIAL (PRIMARY) HYPERTENSION 10/08/2016 BAIMA, BLADIMIR L CONSULTING TECHNICAL MANAGER Ot I25.10 ATHSCL HEART DISEASE OF [place] CORONARY 10/08/2016 BAIMA, BLADIMIR L CONSULTING TECHNICAL MANAGER Ot I65.23 OCCLUSION AND STENOSIS OF [place] 10/08/2016 BAIMA, BLADIMIR L CONSULTING TECHNICAL MANAGER Ot R06.09 OTHER FORMS OF DYSPNEA 10/14/2016 BAIHIREN, BLADIMIR L CONSULTING TECHNICAL MANAGER Ot E11.9 TYPE 2 DIABETES MELLITUS WITHOUT COMPLIC 10/14/2016 BAIHIREN BLADIMIR L CONSULTING TECHNICAL MANAGER Ot E78.5 HYPERLIPIDEMIA, UNSPECIFIED 10/14/2016 BAIMA, BLADIMIR L CONSULTING TECHNICAL MANAGER Ot F41.9 ANXIETY DISORDER, UNSPECIFIED 10/14/2016 BAIMA, BLAIDMIR L CONSULTING TECHNICAL MANAGER Ot I10 ESSENTIAL (PRIMARY) HYPERTENSION 10/14/2016 BAIMA, BLADIMIR L CONSULTING TECHNICAL MANAGER Ot I25.10 ATHSCL HEART DISEASE OF [place] CORONARY 10/14/2016 ABIMBOLAMA BLADIMIR L CONSULTING TECHNICAL MANAGER Ot I25.84 CORONARY ATHEROSCLEROSIS DUE TO [place] 10/14/2016 ABIMBOLAHIREN, BLADIMIR L CONSULTING TECHNICAL MANAGER Ot R06.09 OTHER FORMS OF DYSPNEA 10/14/2016 BAIMA, BLADIMIR L CONSULTING TECHNICAL MANAGER Ot R07.89 OTHER CHEST PAIN 10/14/2016 ABIMBOLAHIREN BLADIMIR L CONSULTING TECHNICAL MANAGER Ot Z79.899 OTHER ACID BLEACHER (CURRENT) DRUG THERAPY 10/14/2016 RAYNE BLADIMIR L CONSULTING TECHNICAL MANAGER Ot Z95.5 PRESENCE OF CORONARY ANGIOPLASTY IMPLANT 11/18/2016 EVIE MAURICIO DC Ot M54.6 PAIN IN THORACIC SPINE 11/18/2016 EVIE MAURICIO DC Ot R07.81 PLEURODYNIA 11/19/2016 EVIE MAURICIO DC Ot M54.6 PAIN IN THORACIC SPINE 11/19/2016 EVIE MAURICIO DC Ot R07.81 PLEURODYNIA 12/03/2016 HANG BEDOLLA, EVIE Ot M54.6 PAIN IN THORACIC SPINE 12/03/2016 HANG BEDOLLA, EVIE Ot R07.81 PLEURODYNIA 01/16/2017 JEAN-PIERRE PRITCHETT CONSULTING TECHNICAL MANAGER Ot 250.00 DIAB DORINA WO COMPL, TYPE II OR UNSPEC TY 01/16/2017 JEAN-PIERRE PRITCHETT CONSULTING TECHNICAL MANAGER Ot 272.4 HYPERLIPIDEMIA NEC/NOS 01/16/2017 JEAN-PIERRE PRITCHETT CONSULTING TECHNICAL MANAGER Ot V76.44 SCREEN MAL NEOP-PROSTATE 01/16/2017 Ot 274.9 GOUT NOS 01/16/2017 Ot 250.00 DIAB DORINA WO COMPL, TYPE II OR UNSPEC TY 01/16/2017 Ot 274.9 GOUT NOS 01/16/2017 Ot 414.00 CORON ATHEROSCLER NOS TYPE VESSEL, NATIV 01/16/2017 ORENDER DO, CHRISTIE S Ot 250.02 DIAB DORINA WO COMPL, TYPE II OR UNSPEC TY 01/16/2017 ORENDER DO, CHRISTIE S Ot 272.4 HYPERLIPIDEMIA NEC/NOS 01/16/2017 ORENDER DO, CHRISTIE S Ot 274.9 GOUT NOS 01/16/2017 ORENDER DO, CHRISTIE S Ot 401.9 HYPERTENSION NOS 01/16/2017 ORENDER DO, CHRISTIE S Ot 414.00 CORON ATHEROSCLER NOS TYPE VESSEL, NATIV 01/16/2017 RICK CHAPIN FACC, ALI FACP CCDS Ot 250.00 DIAB DORINA WO COMPL, TYPE II OR UNSPEC TY 01/16/2017 RICK CHAPIN FACC, ALI FACP CCDS Ot 272.4 HYPERLIPIDEMIA NEC/NOS 01/16/2017 RICK CHAPIN FACC, ALI FACP CCDS Ot 278.00 OBESITY, NOS 01/16/2017 RICK CHAPIN FACC, ALI FACP CCDS Ot 401.9 HYPERTENSION NOS 01/16/2017 RICK CHAPIN FACC, ALI FACP CCDS Ot 414.01 CORONARY ATHEROSCLEROSIS OF [place] CORON 01/16/2017 RICK CHAPIN FACC, ALI FACP CCDS Ot 786.50 CHEST PAIN NOS 01/16/2017 RICK CHAPIN FACC, ALI FACP CCDS Ot V72.81 [id number] CARDIOVASCULAR 01/16/2017 RICK CHAPIN FACC, RANJAN FACP CCDS Ot V72.84 EXAM PRE-OPERATIVE NOS 01/16/2017 ORENDER DO, CHRISTIE S Ot 250.00 DIAB DORINA WO COMPL, TYPE II OR UNSPEC TY 01/16/2017 TRENTON UMANZOR DOLINE S Ot 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,UNSPEC SITE,SUBSEQ 01/16/2017 TRENTON UMANZOR DOLINE S Ot 780.79 OTH MALAISE FATIGUE 01/16/2017 TRENTON UMANZOR DOLINE S Ot 786.09 RESPIRATORY ABNORM NEC 01/16/2017 YAMIL MARSHALL, CHRISTIE S Ot 787.91 DIARRHEA 01/16/2017 BLADIMIR MCLAIN CONSULTING TECHNICAL MANAGER Ot 789.09 ABDOMINAL PAIN, OTHER SPECIFIED SITE 01/16/2017 BLADIMIR MCLAIN CONSULTING TECHNICAL MANAGER Ot 793.6 NOSP (ABN) FINDINGS ON RADIOLOGICAL OT 01/16/2017 RICK CHAPIN FACC, ALI FACP CCDS Ot 250.00 DIAB DORINA WO COMPL, TYPE II OR UNSPEC TY 01/16/2017 RICK CHAPIN FACC, ALI FACP CCDS Ot 272.4 HYPERLIPIDEMIA NEC/NOS 01/16/2017 RICK CHAPIN FACC, ALI FACP CCDS Ot 401.9 HYPERTENSION NOS 01/16/2017 RICK CHAPIN FACC, ALI FACP CCDS Ot 413.9 ANGINA PECTORIS NEC/NOS 01/16/2017 RICK CHAPIN FACC, ALI FACP CCDS Ot 414.00 CORON ATHEROSCLER NOS TYPE VESSEL, NATIV 01/16/2017 RICK GODFREYC, ALI FACP CCDS Ot 440.20 ATHEROSCLEROSIS [place] ARTERIES EXTREMIT 01/16/2017 RICK CHAPIN FACC, ALI FACP CCDS Ot 786.09 RESPIRATORY ABNORM NEC 01/16/2017 JEAN-PIERRE PRITCHETT CONSULTING TECHNICAL MANAGER Ot 250.02 DIAB DORINA WO COMPL, TYPE II OR UNSPEC TY 01/16/2017 JEAN-PIERRE PRITCHETT M CONSULTING TECHNICAL MANAGER Ot 272.4 HYPERLIPIDEMIA NEC/NOS 01/16/2017 JEAN-PIERRE PRITCHETT M CONSULTING TECHNICAL MANAGER Ot 401.9 HYPERTENSION NOS 01/16/2017 BLADIMIR MCLAIN CONSULTING TECHNICAL MANAGER Ot 443.9 PERIPH VASCULAR DIS NOS 01/16/2017 BLADIMIR MCLAIN CONSULTING TECHNICAL MANAGER Ot 997.79 VASCULAR COMPL OTHER VESSELS 01/16/2017 TRISTAN CHAPIN, DIANA Ibrahim Ot 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 01/16/2017 RICK CHAPIN FACC, ALI FACP CCDS Ot 250.00 DIAB DORINA WO COMPL, TYPE II OR UNSPEC TY 01/16/2017 RICK GODFREYC, ALI FACP CCDS Ot 272.4 HYPERLIPIDEMIA NEC/NOS 01/16/2017 RICK CHAPIN FACC, ALI FACP CCDS Ot 401.9 HYPERTENSION NOS 01/16/2017 RICK CHAPIN FACC, ALI FACP CCDS Ot 413.9 ANGINA PECTORIS NEC/NOS 01/16/2017 RICK CHAPIN FACC, ALI FACP CCDS Ot 414.00 CORON ATHEROSCLER NOS TYPE VESSEL, NATIV 01/16/2017 RICK CHAPIN FACC, ALI FACP CCDS Ot 443.9 PERIPH VASCULAR DIS NOS 01/16/2017 VANBECELAERE, JEAN-PIERRE M CONSULTING TECHNICAL MANAGER Ot 250.00 DIAB DORINA WO COMPL, TYPE II OR UNSPEC TY 01/16/2017 VANBECELAERE, JEAN-PIERRE M CONSULTING TECHNICAL MANAGER Ot 272.4 HYPERLIPIDEMIA NEC/NOS 01/16/2017 VANBECELAERE, JEAN-PIERRE M CONSULTING TECHNICAL MANAGER Ot 274.9 GOUT NOS 01/16/2017 VANBECELAERE, JEAN-PIERRE M CONSULTING TECHNICAL MANAGER Ot E11.65 TYPE 2 DIABETES MELLITUS WITH HYPERGLYCE 01/16/2017 VANBECELAERE, JEAN-PIERRE M CONSULTING TECHNICAL MANAGER Ot E78.5 HYPERLIPIDEMIA, UNSPECIFIED 01/16/2017 VANBECELAERE, JEAN-PIERRE M CONSULTING TECHNICAL MANAGER Ot M10.9 GOUT, UNSPECIFIED 01/16/2017 RICK CHAPIN FACC, RANJAN FACP CCDS Ot E11.9 TYPE 2 DIABETES MELLITUS WITHOUT COMPLIC 01/16/2017 RICK CHAPIN FACC, ALI FACP CCDS Ot E78.5 HYPERLIPIDEMIA, UNSPECIFIED 01/16/2017 RICK CHAPIN FACC, ALI FACP CCDS Ot I10 ESSENTIAL (PRIMARY) HYPERTENSION 01/16/2017 RICK CHAPIN FACC, ALI FACP CCDS Ot I25.10 ATHSCL HEART DISEASE OF [place] CORONARY 01/16/2017 RICK CHAPIN FACC, ALI FACP CCDS Ot I73.9 PERIPHERAL VASCULAR DISEASE, UNSPECIFIED 01/16/2017 RICK CHAPIN FACC, ALI FACP CCDS Ot I77.9 DISORDER OF ARTERIES AND ARTERIOLES, UNS 01/16/2017 RICK CHAPIN FACC, ALI FACP CCDS Ot K27.9 PEPTIC ULC, SITE UNSP, UNSP AC OR CHR 01/16/2017 RICK CHAPIN FACC, ALI FACP CCDS Ot R07.9 CHEST PAIN, UNSPECIFIED 01/16/2017 VANJEAN-PIERRE CAMPOS CONSULTING TECHNICAL MANAGER Ot E04.9 NONTOXIC GOITER, UNSPECIFIED 01/16/2017 VANJEAN-PIERRE CAMPOS M CONSULTING TECHNICAL MANAGER Ot R94.6 ABNORMAL RESULTS OF THYROID FUNCTION STACY 01/16/2017 BLADIMIR MCLAIN CONSULTING TECHNICAL MANAGER Ot E78.4 OTHER HYPERLIPIDEMIA 01/16/2017 ABIMBOLABLADIMIR MARADIAGA L CONSULTING TECHNICAL MANAGER Ot I10 ESSENTIAL (PRIMARY) HYPERTENSION 01/16/2017 BLADIMIR MCLAIN L CONSULTING TECHNICAL MANAGER Ot I25.10 ATHSCL HEART DISEASE OF [place] CORONARY 01/16/2017 BLADIMIR MCLAIN CONSULTING TECHNICAL MANAGER Ot I65.23 OCCLUSION AND STENOSIS OF [place] 01/16/2017 BLADIMIR MCLAIN CONSULTING TECHNICAL MANAGER Ot R06.09 OTHER FORMS OF DYSPNEA 01/16/2017 EVIE MAURICIO DC Ot M54.6 PAIN IN THORACIC SPINE 01/16/2017 EVIE MAURICIO DC Ot R07.81 PLEURODYNIA 02/17/2017 LALI UMANZOR DOQUELINE S Ot B02.29 OTHER POSTHERPETIC NERVOUS SYSTEM INVOLV 02/17/2017 ERIKNDER , CHRISTIE S Ot E11.51 TYPE 2 DIABETES W DIABETIC PERIPHERAL AN 02/17/2017 ERIKNDER DO, CHRISTIE S Ot E11.65 TYPE 2 DIABETES MELLITUS WITH HYPERGLYCE 02/17/2017 ERIKNDER DO, CHRISTIE S Ot E78.5 HYPERLIPIDEMIA, UNSPECIFIED 02/17/2017 ERIKNDER DO, CHRISTIE S Ot F41.9 ANXIETY DISORDER, UNSPECIFIED 02/17/2017 ERIKNDER DO CHRISTIE S Ot I10 ESSENTIAL (PRIMARY) HYPERTENSION 02/17/2017 ERIKNDER DO, CHRISTIE S Ot I25.10 ATHSCL HEART DISEASE OF [place] CORONARY 02/17/2017 ERIKNDER DO, CHRISTIE S Ot I65.23 OCCLUSION AND STENOSIS OF [place] 02/17/2017 ERIKNDER DO, CHRISTIE S Ot I73.9 PERIPHERAL VASCULAR DISEASE, UNSPECIFIED 02/17/2017 ERIKNDER DO, CHRISTIE S Ot M10.9 GOUT, UNSPECIFIED 02/17/2017 ERIKNDER DO, CHRISTIE S Ot M25.551 PAIN IN RIGHT HIP 02/17/2017 ERIKNDER DO CHRISTIE S Ot M51.36 OTHER INTERVERTEBRAL DISC DEGENERATION, 02/17/2017 CHRISTIE UMANZOR DO S Ot M79.622 PAIN IN LEFT UPPER ARM 02/17/2017 TRENTON UMANZOR DOLINE S Ot R91.8 OTHER NONSPECIFIC ABNORMAL FINDING OF [place] 02/17/2017 CHRISTIE UMANZOR DO S Ot Z95.5 PRESENCE OF CORONARY ANGIOPLASTY IMPLANT 11/20/2017 JEAN-PIERRE PRITCHETT CONSULTING TECHNICAL MANAGER Ot 250.00 DIAB DORINA WO COMPL, TYPE II OR UNSPEC TY 11/20/2017 VANBECELAERE, JEAN-PIERRE M CONSULTING TECHNICAL MANAGER Ot 272.4 HYPERLIPIDEMIA NEC/NOS 11/20/2017 ERWINELAEJEAN-PIERRE LOPES CONSULTING TECHNICAL MANAGER Ot V76.44 SCREEN MAL NEOP-PROSTATE 11/20/2017 Ot 250.00 DIAB DORINA WO COMPL, TYPE II OR UNSPEC TY 11/20/2017 Ot 274.9 GOUT NOS 11/20/2017 Ot 414.00 CORON ATHEROSCLER NOS TYPE VESSEL, NATIV 11/20/2017 ORENDER DO, CHRISTIE S Ot 250.02 DIAB DORINA WO COMPL, TYPE II OR UNSPEC TY 11/20/2017 ORENDER DO, CHRISTIE S Ot 272.4 HYPERLIPIDEMIA NEC/NOS 11/20/2017 ORENDER DO, CHRISTIE S Ot 274.9 GOUT NOS 11/20/2017 ORENDER DO, CHRISTIE S Ot 401.9 HYPERTENSION NOS 11/20/2017 ERIKNDER DO, CHRISTIE S Ot 414.00 CORON ATHEROSCLER NOS TYPE VESSEL, NATIV 11/20/2017 RICK CHAPIN FACC, ALI FACP CCDS Ot 250.00 DIAB DORINA WO COMPL, TYPE II OR UNSPEC TY 11/20/2017 RICK CHAPIN FACC, ALI FACP CCDS Ot 272.4 HYPERLIPIDEMIA NEC/NOS 11/20/2017 RICK CHAPIN FACC, RANJAN FACP CCDS Ot 278.00 OBESITY, NOS 11/20/2017 RICK CHAPIN FACC, ALI FACP CCDS Ot 401.9 HYPERTENSION NOS 11/20/2017 RICK CHAPIN FACC, ALI FACP CCDS Ot 414.01 CORONARY ATHEROSCLEROSIS OF [place] CORON 11/20/2017 RICK CHAPIN FACC, RANJAN FACP CCDS Ot 786.50 CHEST PAIN NOS 11/20/2017 RICK CHAPIN FACC, ALI FACP CCDS Ot V72.81 [id number] CARDIOVASCULAR 11/20/2017 RICK CHAPIN FACC, ALI FACP CCDS Ot V72.84 EXAM PRE-OPERATIVE NOS 11/20/2017 ERIKNDER , CHRISTIE S Ot 250.00 DIAB DORINA WO COMPL, TYPE II OR UNSPEC TY 11/20/2017 ERIKNDER , CHRISTIE S Ot 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,UNSPEC SITE,SUBSEQ 11/20/2017 ERIKNDER DO, CHRISTIE S Ot 780.79 OTH MALAISE FATIGUE 11/20/2017 ERIKNDER DO, CHRISTIE S Ot 786.09 RESPIRATORY ABNORM NEC 11/20/2017 ERIKNDER DO, CHRISTIE S Ot 787.91 DIARRHEA 11/20/2017 BLADIMIR MCLAIN CONSULTING TECHNICAL MANAGER Ot 789.09 ABDOMINAL PAIN, OTHER SPECIFIED SITE 11/20/2017 BLADIMIR MCLAIN CONSULTING TECHNICAL MANAGER Ot 793.6 NOSP (ABN) FINDINGS ON RADIOLOGICAL OT 11/20/2017 RICK CHAPIN FACC, ALI FACP CCDS Ot 250.00 DIAB DORINA WO COMPL, TYPE II OR UNSPEC TY 11/20/2017 RICK CHAPIN FACC, ALI FACP CCDS Ot 272.4 HYPERLIPIDEMIA NEC/NOS 11/20/2017 RICK CHAPIN FACC, ALI FACP CCDS Ot 401.9 HYPERTENSION NOS 11/20/2017 RICK CHAPIN FACC, ALI FACP CCDS Ot 413.9 ANGINA PECTORIS NEC/NOS 11/20/2017 RICK CHAPIN FACC, ALI FACP CCDS Ot 414.00 CORON ATHEROSCLER NOS TYPE VESSEL, NATIV 11/20/2017 RICK CHAPIN FACC, ALI FACP CCDS Ot 440.20 ATHEROSCLEROSIS [place] ARTERIES EXTREMIT 11/20/2017 RICK CHAPIN FACC, ALI FACP CCDS Ot 786.09 RESPIRATORY ABNORM NEC 11/20/2017 VANJEAN-PIERRE CAMPOS M CONSULTING TECHNICAL MANAGER Ot 250.02 DIAB DORINA WO COMPL, TYPE II OR UNSPEC TY 11/20/2017 VANBRONSON CAMPOSSA M CONSULTING TECHNICAL MANAGER Ot 272.4 HYPERLIPIDEMIA NEC/NOS 11/20/2017 VANBETH JEAN-PIERRE M CONSULTING TECHNICAL MANAGER Ot 401.9 HYPERTENSION NOS 11/20/2017 BLADIMIR MCLAIN CONSULTING TECHNICAL MANAGER Ot 443.9 PERIPH VASCULAR DIS NOS 11/20/2017 BLADIMIR MCLAIN CONSULTING TECHNICAL MANAGER Ot 997.79 VASCULAR COMPL OTHER VESSELS 11/20/2017 TRISTAN CHAPIN, DIANA Ibrahim Ot 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 11/20/2017 RICK CHAPIN FACC, ALI FACP CCDS Ot 250.00 DIAB DORINA WO COMPL, TYPE II OR UNSPEC TY 11/20/2017 RICK GODFREYC, ALI FACP CCDS Ot 272.4 HYPERLIPIDEMIA NEC/NOS 11/20/2017 RICK GODFREYC, ALI FACP CCDS Ot 401.9 HYPERTENSION NOS 11/20/2017 RICK CHAPIN FACC, ALI FACP CCDS Ot 413.9 ANGINA PECTORIS NEC/NOS 11/20/2017 RICK CHAPIN FACC, ALI FACP CCDS Ot 414.00 CORON ATHEROSCLER NOS TYPE VESSEL, NATIV 11/20/2017 RICK CHAPIN FACC, ALI FACP CCDS Ot 443.9 PERIPH VASCULAR DIS NOS 11/20/2017 VANBECELAERE, JEAN-PIERRE M CONSULTING TECHNICAL MANAGER Ot 250.00 DIAB DORINA WO COMPL, TYPE II OR UNSPEC TY 11/20/2017 VANBECELAERE, JEAN-PIERRE M CONSULTING TECHNICAL MANAGER Ot 272.4 HYPERLIPIDEMIA NEC/NOS 11/20/2017 VANBECELAERE, JEAN-PIERRE M CONSULTING TECHNICAL MANAGER Ot 274.9 GOUT NOS 11/20/2017 VANBECELAERE, JEAN-PIERRE M CONSULTING TECHNICAL MANAGER Ot E11.65 TYPE 2 DIABETES MELLITUS WITH HYPERGLYCE 11/20/2017 VANBECELAERE, JEAN-PIERRE M CONSULTING TECHNICAL MANAGER Ot E78.5 HYPERLIPIDEMIA, UNSPECIFIED 11/20/2017 VANBECELAERE, JEAN-PIERRE M CONSULTING TECHNICAL MANAGER Ot M10.9 GOUT, UNSPECIFIED 11/20/2017 RICK CHAPIN FACC, ALI FACP CCDS Ot E11.9 TYPE 2 DIABETES MELLITUS WITHOUT COMPLIC 11/20/2017 RICK CHPAIN FACC, ALI FACP CCDS Ot E78.5 HYPERLIPIDEMIA, UNSPECIFIED 11/20/2017 RICK CHAPIN FACC, ALI FACP CCDS Ot I10 ESSENTIAL (PRIMARY) HYPERTENSION 11/20/2017 RICK CHAPIN FACC, ALI FACP CCDS Ot I25.10 ATHSCL HEART DISEASE OF [place] CORONARY 11/20/2017 RICK CHAPIN FACC, ALI FACP CCDS Ot I73.9 PERIPHERAL VASCULAR DISEASE, UNSPECIFIED 11/20/2017 RICK CHAPIN FACC, ALI FACP CCDS Ot I77.9 DISORDER OF ARTERIES AND ARTERIOLES, UNS 11/20/2017 RICK CHAPIN FACC, ALI FACP CCDS Ot K27.9 PEPTIC ULC, SITE UNSP, UNSP AC OR CHR 11/20/2017 RICK CHAPIN FACC, RANJAN FACP CCDS Ot R07.9 CHEST PAIN, UNSPECIFIED 11/20/2017 JEAN-PIERRE PRITCHETT CONSULTING TECHNICAL MANAGER Ot E04.9 NONTOXIC GOITER, UNSPECIFIED 11/20/2017 JEAN-PIERRE PRITCHETT CONSULTING TECHNICAL MANAGER Ot R94.6 ABNORMAL RESULTS OF THYROID FUNCTION STACY 11/20/2017 RAYNE BLADIMIR L CONSULTING TECHNICAL MANAGER Ot E78.4 OTHER HYPERLIPIDEMIA 11/20/2017 BAIMA BLADIMIR L CONSULTING TECHNICAL MANAGER Ot I10 ESSENTIAL (PRIMARY) HYPERTENSION 11/20/2017 ABIMBOLAMA BLADIMIR L CONSULTING TECHNICAL MANAGER Ot I25.10 ATHSCL HEART DISEASE OF [place] CORONARY 11/20/2017 RAYNE BLADIMIR L CONSULTING TECHNICAL MANAGER Ot I65.23 OCCLUSION AND STENOSIS OF BILATERAL [place] 11/20/2017 RAYNE BLADIMIR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 HUDSON MD [facility] CATH PAD,LOWER EXT PAIN, CLAUDICATION [id number] 07/24/2014 11:04:00 07/24/2014 23:59:59 CLS Outpatient BLADIMIR MCLAIN [facility] RAD PAD,PAIN NO CLASSFIED ELSEWHERE [id number] 07/10/2014 12:40:00 07/10/2014 22:40:00 DIS Outpatient BLADIMIR MCLAIN [facility] RAD LEFT GROIN PERIPHRAL ANGIO [id number] 07/07/2014 09:25:00 07/08/2014 11:30:00 DIS Outpatient DIANA HUDSON MD [facility] CATH PAD CAD HTN HLE [id number] 06/27/2014 07:05:00 06/27/2014 13:15:00 DIS Outpatient RANJAN CABRERA MD, FACC, FACP CCDS [facility] CATH PAD, LEG DISCOMFORT [id number] 06/26/2014 11:57:00 06/26/2014 23:59:59 CLS Outpatient JEAN-PIERRE PRITCHETT [facility] LAB HTN, DIABETES [id number] 05/01/2014 10:49:00 05/01/2014 23:59:59 CLS Outpatient RANJAN CABRERA MD, FACC, FACP CCDS [facility] RAD CAD [id number] 04/17/2014 15:50:00 04/17/2014 23:59:59 CLS Outpatient BLADIMIR MCLAIN [facility] RAD RT GROIN PAIN, SWELLING, POST CATH [id number] 04/13/2014 16:30:00 04/14/2014 17:15:00 DIS Outpatient RAMIRO GILL MD [facility] CATH CHEST PAIN SOB [id number] 04/12/2014 15:47:00 04/12/2014 23:59:59 CLS Outpatient CHRISTIE UMANZOR DO S [facility] RAD DYSPNEA,FATIGUE, DIARRHEA,RECENT [place] [id number] 04/03/2014 08:58:00 04/04/2014 19:00:00 DIS Inpatient TRENTON UMANZOR DOLINE S [facility] CSD CHEST PAIN [id number] 01/25/2014 11:41:00 01/25/2014 23:59:59 CLS Outpatient CHRISTIE UMANZOR DO S [facility] LAB DMII [id number] 11/08/2013 07:06:00 11/08/2013 12:10:00 DIS Outpatient RICK CHAPIN FACC, RANJAN MARTINEZ CCDS [facility] CP,CAD,DM,HTN ,HLP [id number] 11/07/2013 07:55:00 11/07/2013 23:59:59 CLS Outpatient RANJAN CABRERA MD, FACC, FACP CCDS [facility] PREOP CP,CAD,DM, HTN,HL,OBESTIY [id number] 05/24/2013 07:39:00 05/24/2013 23:59:59 CLS Outpatient JEAN-PIERRE PRITCHETT CONSULTING TECHNICAL MANAGER [facility] LAB DM,HLP,ROSTATE SCREENING [id number] 03/16/2013 08:01:00 03/16/2013 23:59:59 CLS Outpatient TRENTON UMANZOR DOLINE S [facility] LAB DIABETES [id number] 03/23/2018 07:11:00 ACT Outpatient RANJAN CABRERA MD, FACC, FACP CCDS [facility] CATH CAD,DM,HTN,ANGINA,FATIGUE,SOB [id number] 08/16/2014 14:49:00 Document Registration [id number] 08/16/2014 14:49:00 Document Registration [id number] 08/09/2012 08:30:00 Document Registration [id number] 08/28/2011 10:23:00 Document Registration [id number] 06/24/2011 13:06:00 Document Registration [id number] 06/24/2011 13:00:00 Document Registration [id number] 01/21/2011 05:35:00 Document Registration [id number] 01/20/2011 07:44:00 Document Registration [id number] 12/18/2010 10:40:00 Document Registration [id number] 04/08/2010 12:03:00 Document Registration [id number] 01/22/2010 05:41:00 Document Registration [id number] 01/21/2010 09:14:00 Document Registration [id number] 12/27/2009 10:54:00 Document Registration [id number] 02/08/2018 14:20:00 02/08/2018 23:59:59 CLS Outpatient ELIAS DOWNING APRN [facility] [id number] 10/02/2017 13:40:00 Document Registration [id number] 07/20/2017 09:26:00 Document Registration [id number] 07/20/2017 08:00:00 Document Registration [id number] 07/07/2017 09:00:00 Document Registration 09/10/18 02/21/2018 06:12:13 02/21/2018 23:59:59 CLS Outpatient Christie Umanzor
[2018-03-23 08:04] LABS: HEMOGLOBIN 14.8 G/DL (13.3-17.7); MEAN PLATELET VOLUME 9.7 FL (7.4-10.4); RED BLOOD COUNT 5.01 10^6/uL (4.35-5.85); RED CELL DISTRIBUTION WIDTH 13.6 % (10.0-14.5); WHITE BLOOD COUNT 8.1 10^3/uL (4.3-11.0)
[2018-03-23 08:21] LABS: ALANINE AMINOTRANSFERASE 22 U/L (0-55); ALBUMIN 4.4 GM/DL (3.2-4.5); ALKALINE PHOSPHATASE 46 U/L (40-136); BILIRUBIN,TOTAL 0.5 MG/DL (0.1-1.0); BUN/CREATININE RATIO 16; CALCIUM 10.2 MG/DL (8.5-10.1); CARBON DIOXIDE 25 MMOL/L (21-32); CHLORIDE 104 MMOL/L (98-107); CHOLESTEROL 177 MG/DL (< 200); CREATININE SERUM 1.27 MG/DL (0.60-1.30); GFR ESTIMATED 58; GLUCOSE 231 MG/DL (70-105); HDL CHOLESTEROL 32 MG/DL (40-60); POTASSIUM 4.2 MMOL/L (3.6-5.0); SODIUM 139 MMOL/L (135-145); TOTAL PROTEIN 7.7 GM/DL (6.4-8.2); TRIGLYCERIDES 459 MG/DL (<150)
[2018-03-23] MEDS ORDERED: MIDAZOLAM 5 MG/5 ML (VERSED) VIAL ONE (08:36)
[2018-03-23] MEDS ORDERED: diphenhydrAMINE 50 MG/ML INJ (BENADRYL) ONE (08:36)
[2018-03-23] MEDS ORDERED: fentaNYL INJECTION 100 MCG/2 ML AMP ONE (08:36)
[2018-03-23] MEDS ORDERED: AMLO10TA2 PO (08:41)
[2018-03-23] MEDS ORDERED: GABA-488 PO (08:44)
[2018-03-23] MEDS ORDERED: INSU100I32 SQ (08:47)
[2018-03-23] MEDS ORDERED: INSU100V16 SQ (08:48)
[2018-03-23] MEDS ORDERED: HYDR200T46 PO (08:49)
[2018-03-23] MEDS ORDERED: PANT40TA3 PO (08:50)
[2018-03-23] MEDS ORDERED: ATOR10TA66 PO (08:50)
[2018-03-23] MEDS ORDERED: FISH1CAP15 PO (08:51)
[2018-03-23] MEDS ORDERED: METO-395 PO (08:51)
[2018-03-23] MEDS ORDERED: HEParin 1000 UNIT/ML (10ML VIAL) FOR BOLUS ONE (09:22)
[2018-03-23] MEDS ORDERED: EPTIFIBATIDE BOLUS 10 ML IV ONE ×2 (09:22→09:25)
[2018-03-23] MEDS ORDERED: NITRO DRIP 25000 MCG/D5W 250 ML IV ONE (09:25)
--- NOTE | 2018-03-23 10:14 | Cardiac Procedure Note-CS/ASA ---
Pre-Procedure Note Pre-Op Procedure Note H&P Reviewed The H&P was reviewed, patient examined and no changes noted. Date H&P Reviewed: Mar 23, 2018 Time H&P Reviewed: 08:30 Conscious Sedation Pre-Proced Time Reviewed: 08:30 ASA Class: 3 Airway Mallampati Classification: ([place] appropriate class) I. II. III, IV Lungs Heart ASA score ASA 1: a normal healthy patient ASA 2: a patient with a mild systemic disease (mid diabetes, controlled hypertension, obesity ASA 3: a patient with a severe systemic disease that limits activity (angina , COPD, prior Myocardial infarction) ASA 4: a patient with an incapacitating disease that is a constant threat to life (CHF, renal failure) ASA 5: a moribund patient not expected to survive 24 hrs. (ruptured aneurysm) ASA 6: a declared brain patient whose organs are being harvested. For emergent operations, add the letter E after the classification Grade 2 Sedation Plan: Analgesia, Amnesia, Plan communicated to team members, Discussed options with patient/fam, Discussed risks with patient/fam Note The patient is an appropriate candidate to undergo the planned procedure, sedation, and anesthesia. The patient immediately re-assessed prior to indication. RANJAN CABRERA MD FACP FAC CCDS Mar 23, 2018 10:14
[2018-03-23] MEDS ORDERED: NS IV 1000 ML 1,000 ML IV SCH (10:18)
[2018-03-23] MEDS ORDERED: PATIENT MAY USE OWN MEDS, ALL PO SCH (10:30)
[2018-03-23] MEDS ORDERED: GABAPENTIN 300 MG (NEURONTIN) CAP PO SCH (13:00)
--- NOTE | 2018-03-23 13:58 | CARDIAC CATHETERIZATION ---
DATE OF SERVICE: 03/23/2018 CARDIAC CATHETERIZATION AND CORONARY INTERVENTION REPORT HISTORY OF PRESENT ILLNESS: The patient is a 62-year-old man, who is known to have coronary artery disease and multiple continuing coronary risk factors. He has lately had recurrent chest discomfort and repeat cardiac catheterization was recommended. Informed consent was obtained. PROCEDURE: He was brought to the cardiac catheterization laboratory in a fasting state. Right groin was prepared and draped in the usual sterile fashion. Lidocaine 1% with local anesthesia. Modified Seldinger technique was used to advance a 5-Colombian sheath into the right femoral artery. A 5-Colombian JL4 catheter for left coronary angiography. A 5-Colombian JR4 catheter for right coronary angiography. A 5-Colombian pigtail catheter was used for left heart catheterization and left ventricular angiography. The catheters were removed. Angiography of the right femoral artery was carried out through the sheath. PERCUTANEOUS INTERVENTION OF THE RIGHT CORONARY ARTERY: Following completion of the diagnostic procedure, we exchanged the sheath over a wire for a 6-Colombian sheath. We gave 6000 units of intravenous heparin. A double bolus of Integrilin was given during the procedure. We used a 6-Colombian JR4 guide catheter with side holes. We used a ChoICE extra strength wire to cross the lesions in the distal right coronary artery and the tip was placed in the terminal posterolateral branch. We carried out balloon angioplasty in the distal right coronary artery with Emerge 2.0 x 20 mm balloon. This included a 70% in-stent restenosis in the distal right coronary artery and a 90% stenosis beyond the distal edge of the stent. Subsequent angiography revealed less than 30% residual stenosis and flow throughout the vessel is normal. Angioplasty equipment was removed. Mynx was used to achieve hemostasis. He tolerated the procedure well. HEMODYNAMICS: Left ventricular end-diastolic pressure following coronary angiography was 8 mmHg. There was no significant pressure gradient on pullback across the aortic valve. Ascending aortic pressure was 102/53 with a mean of 75 mmHg. CORONARY ANGIOGRAPHY: Coronary calcification is present. Left main coronary artery does not exhibit any significant obstructive disease. Left anterior descending artery has a widely patent stented portion in the mid vessel. The very distal left anterior descending artery has diffuse disease with multiple stenoses of up to 90%. The vessel he had is of a small caliber and not amenable to intervention. The left circumflex artery has a diffuse tegb-nx-lmivtgwv disease. The very distal portion of the right coronary artery, including the terminal obtuse marginal branch of the left circumflex artery has severe disease with stenosis of up to 90%, but the vessel he had is of small caliber and does not appear to be amenable to intervention. The right coronary artery is dominant. It has multiple stenoses of up to 50% in its proximal midportion. There is a patent stent in the distal portion with 70% in-stent restenosis, which was reduced to less than 30% following balloon angioplasty. Distal to the distal edge of the stent, prior to the origin of the terminal posterolateral branches, there was 90% stenosis which was reduced to less than 30% following balloon angioplasty. LEFT VENTRICULAR ANGIOGRAPHY: Left ventricular angiography was carried out in the right anterior oblique projection. Global left ventricular systolic function is normal. No regional wall motion abnormality is seen. No significant mitral regurgitation is seen. Left ventricular ejection fraction is approximately 65%. CONCLUSIONS: 1. Coronary artery disease, multivessel. The left anterior descending artery has patent stents (overlapping Promus 3.0 x 12 mm and 2.25 x 16 mm with overlap treated with a 3 mm balloon) in its midportion. The terminal portion of the left anterior descending artery has severe diffuse disease with stenosis of up to 90%, but is not amenable to intervention on account of small caliber size. The left circumflex artery has diffuse moderate disease and the terminal obtuse marginal branches have up to 90% stenoses, but the vessels are small caliber and not amenable for intervention. The right coronary artery is dominant and has moderate proximal and mid vessel disease. There is a patent stent in the distal right coronary known to be Promus 2.5 x 18 mm, which was exhibiting 70% in-stent restenosis that was reduced to less than 30% following balloon angioplasty today. The distal right coronary artery, distal to the stent was exhibiting 90% stenosis that was reduced to less than 30% following balloon angioplasty today. The terminal posterolateral branches of the right coronary artery has severe diffuse disease and are of small caliber and not amenable to intervention. 2. Normal global left ventricular systolic function with ejection fraction of 60% to 65%. 3. Normal left ventricular end-diastolic pressure. 4. No significant mitral regurgitation. 5. Incidental note is made of proximal occlusion of the right superficial femoral artery at the level of the proximal end of a previously placed stent. DISCUSSION AND RECOMMENDATIONS: He is being hospitalized for observation following today's procedure. Risk factor modification is being continued. Outpatient followup is advised. Job ID: [id number] DocumentID: [id number] Dictated Date: 03/23/2018 10:01:06 [place] Date: 03/23/2018 13:57:53 Dictated By: RANJAN CABRERA MD, MA, FACP, FACC,
[2018-03-23] MEDS ORDERED: inSUlin ASPART (NovoLOG) 1 UNIT/0.01 ML (CHARGE PER UNIT) SQ SCH (16:00)
[2018-03-23] MEDS: inSUlin ASPART (NovoLOG) 1 UNIT/0.01 ML (CHARGE PER UNIT) SQ SCH (17:30)
[2018-03-23] MEDS: Celecoxib 200 MG CAPSULE PO SCH (19:55)
[2018-03-23] MEDS: GABAPENTIN 300 MG (NEURONTIN) CAP PO SCH (19:57)
[2018-03-23] MEDS ORDERED: INSULIN DEGLUDEC SQ SCH (21:00)
[2018-03-23] MEDS ORDERED: ATORVASTATIN 10 MG (LIPITOR) TABLET PO SCH (21:00)
[2018-03-23] MEDS ORDERED: cloNIDine 0.1 MG (CATAPRES) TAB PO SCH (21:00)
[2018-03-24] MEDS: NS IV 1000 ML 1,000 ML IV SCH (02:25)
[2018-03-24 03:43] LABS: RED BLOOD COUNT 4.35 10^6/uL (4.35-5.85); RED CELL DISTRIBUTION WIDTH 13.2 % (10.0-14.5); WHITE BLOOD COUNT 8.8 10^3/uL (4.3-11.0)
[2018-03-24 04:00] VITALS: BP 142/77
[2018-03-24 04:03] LABS: BUN/CREATININE RATIO 21; CARBON DIOXIDE 24 MMOL/L (21-32); CHLORIDE 105 MMOL/L (98-107); CREATININE SERUM 1.17 MG/DL (0.60-1.30); GFR ESTIMATED > 60; GLUCOSE 130 MG/DL (70-105); POTASSIUM 4.1 MMOL/L (3.6-5.0); SODIUM 138 MMOL/L (135-145)
[2018-03-24 08:04] VITALS: BP 170/78
[2018-03-24] MEDS: inSUlin ASPART (NovoLOG) 1 UNIT/0.01 ML (CHARGE PER UNIT) SQ SCH (08:10)
[2018-03-24] MEDS: Celecoxib 200 MG CAPSULE PO SCH (08:12)
[2018-03-24] MEDS: GABAPENTIN 300 MG (NEURONTIN) CAP PO SCH (08:12)
--- NOTE | 2018-03-24 08:20 | Progress Note-Cardiology ---
Cardiology SOAP Progress Note Subjective: Sitting up in bed. No c/o CP, dyspnea, palpitations, syncope or near syncope. C/O mild right groin discomfort with palpation. Wants to go home. Objective: I&O/Vital Signs 03/24/18 03/24/18 03/24/18 03/24/18 04:00 04:00 07:00 08:04 Temp 98.1 98.4 Pulse 65 60 72 Resp 15 18 B/P (MAP) 142/77 (98) 170/78 (108) Pulse Ox 99 94 O2 Delivery Nasal Cannula Room Air O2 Flow Rate 3.00 03/24/18 12:05 Pulse 72 Resp 18 B/P (MAP) 170/78 Pulse Ox 94 O2 Delivery Room Air 03/24/18 00:00 Intake Total 700 ml Output Total 900 ml Balance -200 ml Weight (Pounds): 198 Weight (Ounces): 0.0 Weight (Calculated Kilograms): 89.247691 Side: right Condition: DP/PT pulses palpable, extremity w/d/p Bruising: mild bruising Constitutional: AAO x 3, well-developed, well-nourished Respiratory: No accessory muscle use, No respiratory distress; chest expansion is symmetric, chest is bilaterally symmetric, lungs clear to auscultation Cardiovascular: regular rate-rhythm; No JVD; S1 and S2 Gastrointestional: No tender; soft, round, audible bowel sounds Extremities: no lower extremity edema bilateral Neurologic/Psychiatric: grossly intact Skin: No rash, No ulcerations Results/Procedures: Labs Laboratory Tests 03/23/18 19:46: Glucometer 141H 03/24/18 03:25: White Blood Count 8.8, Red Blood Count 4.35, Hemoglobin 13.0L, Hematocrit 36L, Mean Corpuscular Volume 83, Mean Corpuscular Hemoglobin 30, Mean Corpuscular Hemoglobin Concent 36, Red Cell Distribution Width 13.2, Platelet Count 235, Mean Platelet Volume 10.0, Sodium Level 138, Potassium Level 4.1, Chloride Level 105, Carbon Dioxide Level 24, Anion Gap 9, Blood Urea Nitrogen 24H, Creatinine 1.17, Estimat Glomerular Filtration Rate > 60, BUN/Creatinine Ratio 21, Glucose Level 130H, Calcium Level 9.0 03/24/18 06:29: Glucometer 104 03/24/18 10:44: Glucometer 110 Microbiology 03/23/18 MRSA Screen - Final, Complete MRSA not isolated Laboratory Tests 03/23/18 07:32 03/24/18 03:25 Procedures Please refer to cardiac cath report of March 23, 2018 A/P: Assessment: CAD - Card cath of 03/23/18: Coronary artery disease, multivessel. The left anterior descending artery has patent stents (overlapping Promus 3.0 x 12 mm and 2.25 x 16 mm with overlap treated with a 3 mm balloon) in its midportion. The terminal portion of the left anterior descending artery has severe diffuse disease with stenosis of up to 90%, but is not amenable to intervention on account of small caliber size. The left circumflex artery has diffuse moderate disease and the terminal obtuse marginal branches have up to 90% stenoses, but the vessels are small caliber and not amenable for intervention. The right coronary artery is dominant and has moderate proximal and mid vessel disease. There is a patent stent in the distal right coronary known to be Promus 2.5 x 18 mm, which was exhibiting 70% in-stent restenosis that was reduced to less than 30% following balloon angioplasty. The distal right coronary artery, distal to the stent was exhibiting 90% stenosis that was reduced to less than 30 % following balloon angioplasty. The terminal posterolateral branches of the right coronary artery has severe diffuse disease and are of small caliber and not amenable to intervention. Normal global left ventricular systolic function with ejection fraction of 60% to 65%. Normal left ventricular end-diastolic pressure. No significant mitral regurgitation. Incidental note is made of proximal occlusion of the right superficial femoral artery at the level of the proximal end of a previously placed stent. Labile hypertension. Hospitalization with uncontrolled hypertension and transient neurologic symptoms in early Sep 2015. No evidence of CVA on MRI of 09/10/[address] head of 09/09/15 Low TSH in Jul 2015, being followed by Dr Umanzor Chest and epigastric pain due to PUD, based on endoscopy of 06/08/[address] Minaya that showed multiple gastric and duodenal ulcers. Vague history of syncope without evidence of any significant arrhythmia or acute coronary syndrome CT angio of 04/23/15 did not show PE. There were minimal foci of consolidation along medial aspect of sup segment of LLL favored to be minimal atelectasis rather than pneumonitis, per the radiologist report; there were minimally enlarged mediastinal lymph nodes Anxiety Echo of 02/17/17: showed LVEF 55-65%, mildly dilated LA, hypokinesis of apical myocardium Maturity onset diabetes mellitus, being managed by Dr. Umanzor. Hyperlipidemia - intolerant to statin (muscle discomfort) Diagnosed with SLE by his pcp in early 2017 (managed by pcp) Gout. Carotid arterial disease. CTA of carotids on 09/20/15 showed 50% prox R ICA and less than 50% L ICA bulb stenoses. Mild carotid art disease on carotid u/s of 06/23 Peripheral arterial disease. S/p bilateral leg artery interventions by Dr Layton in Jul and Aug 2014. No leg claudication since Multiple rib fractures per report of November 2016 d/t a non-syncopal fall Plan: Discussed coronary status with him Answered questions Left arm discomfort does not appear to be cardiac related - advised f/u with his PCP for further work up of other causes Continue current med regimen Out pt f/u in 4 weeks or sooner if needed Risk factor modification discussed Physician Assessment Physician Assessment No cp or palp or syncope or shortness of breath at rest or groin discomfort. Wishes to go home Lungs: good bilat air entry Cor: reg Ext: no c/c/e; mild to mod bruising at site of entry in the R groin A&R * As documented in our above that I updated in italics and as noted below * I discussed his card cath findings and interventions undertaken * Risk factor modification discussed * Outpat f/u advised * Questions answered BLADIMIR MCLAIN INTERNET ARCHITECT Mar 24, 2018 08:20 RANJAN CABRERA MD FACP FAC CCDS Mar 24, 2018 14:33
[2018-03-24] MEDS ORDERED: PANTOPRAZOLE 40 MG (PROTONIX) TAB PO SCH (09:00)
[2018-03-24] MEDS ORDERED: meTOprolol SUCCINATE 100 MG (TOPROL XL) TAB PO SCH (09:00)
[2018-03-24] MEDS ORDERED: HYDROXYCHLOROQUINE SULFATE 200 MG PO SCH (09:00)
[2018-03-24] MEDS ORDERED: amLODIPine 10 MG (NORVASC) TAB PO SCH (09:00)
[2018-03-24] MEDS ORDERED: ULORIC 80 MG PO SCH (09:00)
[2018-03-24] MEDS ORDERED: OMEGA 3 (FISH OIL) 1000 MG CAP PO SCH (09:00)
[2018-03-24] MEDS ORDERED: RAMIPRIL 5 MG PO SCH (09:00)
[2018-03-24] MEDS ORDERED: meTOproloL SUCCINATE 50 MG (TOPROL XL) TAB PO SCH (09:00)
[2018-03-24] MEDS ORDERED: CLOPIDOGREL 75 MG (PLAVIX) TABLET PO SCH (09:00)
[2018-03-24] MEDS ORDERED: ASPIRIN 81 MG CHEW (CHILDREN'S ASA) PO SCH (09:00)
--- NOTE | 2018-03-24 09:20 | Discharge Inst-Cardiology ---
Discharge Inst-Cardiac Discharge Medications Continued Medications: Amlodipine Besylate (Amlodipine Besylate) 10 Mg Tablet 10 MG PO DAILY, TAB Aspirin (Aspirin) 81 Mg Tab.chew 81 MG PO DAILY, TAB Atorvastatin Calcium (Atorvastatin Calcium) 10 Mg Tablet 10 MG PO HS, TAB Celecoxib (Celecoxib) 200 Mg Capsule 200 MG PO BID Clonidine HCl (Clonidine HCl) 0.1 Mg Tablet 0.1 MG PO HS, TAB Clopidogrel Bisulfate (Clopidogrel) 75 Mg Tablet 75 MG PO DAILY Febuxostat (Uloric) 80 Mg Tablet 80 MG PO DAILY Fish Oil/Dha/Epa (Fish Oil 1,200 mg Fish Oil) 1 Each Capsule 1 EACH PO DAILY, CAP Gabapentin (Gabapentin) 300 Mg Capsule 600 MG PO TID, CAP Hydroxychloroquine Sulfate (Hydroxychloroquine Sulfate) 200 Mg Tablet 200 MG PO DAILY, TAB Insulin Aspart (Novolog) 100 Unit/1 Ml Susp 15 UNIT SQ AC, EACH Insulin Degludec (Tresiba Flextouch U-100) 100 Unit/1 Ml Insuln.pen 120 UNIT SQ HS, EA Metoprolol Succinate (Metoprolol Succinate) 50 Mg Tab.er.24h 50 MG PO DAILY TAKES ALONG WITH METOPROLOL SUCCINATE ER 100 MG Metoprolol Succinate (Metoprolol Succinate) 100 Mg Tab.er.24h 100 MG PO DAILY, TAB Pantoprazole Sodium (Pantoprazole Sodium) 40 Mg Tablet.dr 40 MG PO DAILY, TAB Ramipril (Ramipril) 5 Mg Capsule 5 MG PO DAILY, CAP Patient Instructions Patient Instructions: Please schedule follow up appointment to see Dr. Tracy in 4 weeks BLADIMIR MCLAIN Mar 24, 2018 09:20
[2018-03-24 12:05] VITALS: BP 170/78
== END 2018-03-24 12:05 | disposition home or self-care (01) ==
LOC: CATH 07:11 → ICU 10:45 → CATH 03-24 12:05
PROVIDERS: ATTEND Internal Medicine Cardiovascular Disease
DX: I25.10 Atherosclerotic heart disease of native coronary artery without angina pectoris (principal); E11.9 Type 2 diabetes mellitus without complications; E78.5 Hyperlipidemia, unspecified; I65.23 Occlusion and stenosis of bilateral carotid arteries; I73.9 Peripheral vascular disease, unspecified; M32.9 Systemic lupus erythematosus, unspecified; E66.9 Obesity, unspecified; Z68.30 Body mass index [BMI] 30.0-30.9, adult; Z79.4 Long term (current) use of insulin; Z79.02 Long term (current) use of antithrombotics/antiplatelets; Z79.82 Long term (current) use of aspirin; Z95.5 Presence of coronary angioplasty implant and graft
CPT/HCPCS: 36415; 80048; 80053; 80061; 82962; 85027; 85610; 85730; 87081; 93005; 93458

== ENCOUNTER → 2018-03-25 | Outpatient (CLI) | payer SELFPAY ==
[~2018-03-25] MED LIST changes: +AMLO10TA2 PO; +ATOR10TA66 PO; +GABA-488 PO; +HYDR200T46 PO; +INSU100I32 SQ; +INSU100V16 SQ
--- NOTE | 2018-03-25 14:12 | Diagnostic Imaging Report ---
INDICATION: Right groin pain for three days. The patient is status post heart catheterization. FINDINGS: Sonographic interrogation of the right groin was performed. There is a hematoma present measuring 4.5 x 1.7 x 3.7 cm. No internal vascularity is seen to suggest pseudoaneurysm. IMPRESSION: Right groin hematoma. No pseudoaneurysm is detected. Dictated by: Dictated on workstation # [id number]
== END ==
LOC: RAD 13:07
PROVIDERS: ATTEND Internal Medicine Cardiovascular Disease
DX: S30.1XXA Contusion of abdominal wall, initial encounter (principal); M79.604 Pain in right leg
CPT/HCPCS: 93926

== ENCOUNTER 2018-09-04 08:05 | Emergency (ER) | payer SELFPAY ==
[~2018-09-04] VITALS: Ht 172.7 cm; Wt 93.0 kg
[~2018-09-04 08:05] MED LIST changes: -AMLO10TA2 PO; +AMLO10TA6 PO; -AMLO5TAB2 PO; +AMLO5TAB7 PO; +METF-399 PO; -METF10002 PO; +RAMI2.5C2 PO; -RAMI5CAP PO; +RAMI5CAP65 PO
[2018-09-04 08:38] LABS: BASOPHILS % (AUTO) 0 % (0-10); EOSINOPHILS # (AUTO) 0.4 10^3/uL (0.0-0.3); EOSINOPHILS % (AUTO) 4 % (0-10); HEMATOCRIT 42 % (40-54); HEMOGLOBIN 14.9 G/DL (13.3-17.7); LYMPHOCYTES # (AUTO) 1.8 X 10^3 (1.0-4.0); LYMPHOCYTES % (AUTO) 17 % (12-44); MEAN CORPUSCULAR HEMOGLOBIN 28 PG (25-34); MEAN CORPUSCULAR HGB CONC 35 G/DL (32-36); MEAN CORPUSCULAR VOLUME 79 FL (80-99); MEAN PLATELET VOLUME 9.3 FL (7.4-10.4); MONOCYTES # (AUTO) 0.6 X 10^3 (0.0-1.0); MONOCYTES % (AUTO) 5 % (0-12); NEUTROPHILS # (AUTO) 7.8 X 10^3 (1.8-7.8); NEUTROPHILS % (AUTO) 73 % (42-75); PLATELET COUNT 319 10^3/uL (130-400); RED BLOOD COUNT 5.33 10^6/uL (4.35-5.85); RED CELL DISTRIBUTION WIDTH 14.3 % (10.0-14.5); WHITE BLOOD COUNT 10.6 10^3/uL (4.3-11.0)
[2018-09-04] MEDS ORDERED: FUROSEMIDE 40 MG/4 ML INJ (LASIX) IVP ONE ×2 (08:45→09:45)
[2018-09-04] MEDS ORDERED: NITROGLYCERIN 2% OINT 1 GM UNIT DOSE PACKET TOP ONE (08:45)
[2018-09-04 08:47] LABS: PROTHROMBIN TIME PATIENT 12.8 SEC (12.2-14.7)
--- NOTE | 2018-09-04 08:52 | NUR ---
PT STATES HAS NOT HAD AMLOPADINE FOR 1.5 WEEKS AND NO PLAVIX FOR 4 DAYS.
[2018-09-04 08:56] LABS: ALANINE AMINOTRANSFERASE 25 U/L (0-55); ALBUMIN 4.2 GM/DL (3.2-4.5); ALKALINE PHOSPHATASE 29 U/L (40-136); BUN/CREATININE RATIO 14; CALCIUM 9.6 MG/DL (8.5-10.1); CARBON DIOXIDE 18 MMOL/L (21-32); CHLORIDE 103 MMOL/L (98-107); GFR ESTIMATED > 60; GLUCOSE 233 MG/DL (70-105); MAGNESIUM 2.3 MG/DL (1.8-2.4); SODIUM 134 MMOL/L (135-145); TOTAL PROTEIN 7.9 GM/DL (6.4-8.2)
--- NOTE | 2018-09-04 08:57 | Diagnostic Imaging Report ---
Indication: Short of breath. Upright portable chest shows heart size and vascularity to be upper normal. The lungs are clear. There is no effusion or pneumothorax. Impression: Heart size and vascularity have increased slightly but no infiltrates or effusions are seen and there is no other change from 02/17/2017. Dictated by: Dictated on workstation # [id number]
[2018-09-04 09:00] LABS: POTASSIUM 5.3 MMOL/L (3.6-5.0)
[2018-09-04 09:03] LABS: MYOGLOBIN SERUM 51.2 NG/ML (10.0-92.0)
--- NOTE | 2018-09-04 09:42 | ED General ---
General Chief Complaint: Respiratory Problems Stated Complaint: SOA Nursing Triage Note: PT TO ROOM 10 PER W/C ASSISTED PT FROM CAR. PT CO OF SOA AND FEELING WEAKNESS FOR 3-4 DAYS. PT DENIES CHEST PAIN, BUT DOES HAVE SOME SWELLING IN HANDS AND FACE Nursing Sepsis Screen: No Definite Risk Source of Information: Patient Exam Limitations: No Limitations History of Present Illness Date Seen by Provider: Sep 04, 2018 Time Seen by Provider: 08:07 Initial Comments This 62-year-old gentleman presents to the emergency room with complaints of shortness of air, especially with lying flat. He has been having significant difficulty sleeping the past couple of days because of the symptoms. He also has felt weak and fatigued. He denies any chest pain of any kind over the past few days. He does have history of coronary artery disease with stenting. Dr. Tracy is his coat examiner and Orlin Roland is his primary care provider. He is notably hypertensive upon assessment. He notes that he has been out of amlodipine for about 10 days. He recently had it refilled but has not restarted it yet. He has also lost his Plavix and has not taken it for 4 days. He has anasarca. Swelling is visible in his face and hands. His calves feel tight and swollen bilaterally. Review of his chart reveals a angiography report from March 2018. He had angioplasty of in-stent restenosis and small vessel disease was noted. Ejection fraction was 60-65 percent. Allergies and Home Medications Allergies Coded Allergies: carvedilol (Unverified Allergy, Unknown, 01/22/10) codeine (Unverified Allergy, Unknown, PATIENT HAS RECEIVED MORPHINE WITHOUT ISSUE, 06/08/15) Home Medications Amlodipine Besylate 10 Mg Tablet, 10 MG PO DAILY, (Reported) Aspirin 81 Mg Tab.chew, 81 MG PO DAILY, (Reported) Atorvastatin Calcium 10 Mg Tablet, 10 MG PO HS, (Reported) Celecoxib 200 Mg Capsule, 200 MG PO BID, (Reported) Clonidine HCl 0.1 Mg Tablet, 0.1 MG PO HS, (Reported) Clonidine HCl 0.1 Mg Tablet, 0.1 MG PO BID Prescribed by: TRISHA CASTRO on 09/04/18 1113 Clopidogrel Bisulfate 75 Mg Tablet, 75 MG PO DAILY, (Reported) Febuxostat 80 Mg Tablet, 80 MG PO DAILY, (Reported) Fish Oil/Dha/Epa 1 Each Capsule, 1 EACH PO DAILY, (Reported) Gabapentin 300 Mg Capsule, 600 MG PO TID, (Reported) Hydroxychloroquine Sulfate 200 Mg Tablet, 200 MG PO DAILY, (Reported) Insulin Aspart 100 Unit/1 Ml Susp, 15 UNIT SQ AC, (Reported) Insulin Degludec 100 Unit/1 Ml Insuln.pen, 120 UNIT SQ HS, (Reported) Metoprolol Succinate 50 Mg Tab.er.24h, 50 MG PO DAILY, (Reported) TAKES ALONG WITH METOPROLOL SUCCINATE ER 100 MG Metoprolol Succinate 100 Mg Tab.er.24h, 100 MG PO DAILY, (Reported) Pantoprazole Sodium 40 Mg Tablet.dr, 40 MG PO DAILY, (Reported) Ramipril 5 Mg Capsule, 5 MG PO DAILY, (Reported) Patient Home Medication List Home Medication List Reviewed: Yes Review of Systems Review of Systems Constitutional: no symptoms reported EENTM: no symptoms reported Respiratory: see HPI Cardiovascular: see HPI Gastrointestinal: no symptoms reported Genitourinary: no symptoms reported Musculoskeletal: no symptoms reported Skin: no symptoms reported Psychiatric/Neurological: No Symptoms Reported Hematologic/Lymphatic: No Symptoms Reported Immunological/Allergic: no symptoms reported Past Pcblssh-Avtbhy-Tepvim Hx Past Med/Social Hx: Reviewed Nursing Past Med/Soc Hx Patient Social History Alcohol Use: Denies Use Recreational Drug Use: No Smoking Status: Never a Smoker 2nd Hand Smoke Exposure: No Recent Foreign Travel: No Contact w/Someone Who Travel: No Recent Infectious Disease Expo: No Recent Hopitalizations: No Physical Abuse: No Sexual Abuse: No Immunizations Up To Date Tetanus Booster (TDap): Unknown PED Vaccines UTD: Yes Date of Pneumonia Vaccine: Apr 27, 2014 Date of Influenza Vaccine: May 08, 2015 Seasonal Allergies Seasonal Allergies: No Past Medical History Surgeries: Yes Cardiac, Coronary Stent, Ear Surgery, Orthopedic, Vascular Surgery Respiratory: Yes Sleep Apnea Currently Using CPAP: No Currently Using BIPAP: No Cardiac: Yes Coronary Artery Disease, High Cholesterol, Hypertension, Peripheral Vascular Neurological: Yes (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) Stroke, TIA Reproductive Disorders: No Gastrointestinal: Yes Ulcer Musculoskeletal: Yes Arthritis, Gout Endocrine: Yes Diabetes, Insulin dep Loss of Vision: Denies Hearing Impairment: Hard of Hearing Cancer: No Psychosocial: Yes Sleep Difficulties, Anxiety Integumentary: No Blood Disorders: No Adverse Reaction/Blood Tranf: No Family Medical History Reviewed Nursing Family Hx Alcoholism 19 FATHER Cancer 19 FATHER 19 MOTHER Chest pain 19 MOTHER Family history: Arthritis (grandmother) G8 SISTER Family history: Cardiovascular disease 19 MOTHER Family history: Diabetes mellitus G8 SISTER Family history: Hypertension 19 FATHER 19 MOTHER Hearing loss 19 FATHER Heart disease 19 MOTHER Malignant neoplasm of lung 19 MOTHER Myocardial infarction 19 MOTHER Stroke 19 FATHER No Pertinent Family Hx Physical Exam Vital Signs Vital Signs - First Documented 09/04/18 08:05 Temp 98.1 Pulse 105 Resp 25 B/P (MAP) 172/110 (130) Pulse Ox 94 O2 Delivery Nasal Cannula O2 Flow Rate 2.00 Capillary Refill : Less Than 3 Seconds Height, Weight, BMI Height: 5'8.00" Weight: 205lbs. 0.0oz. 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 Norm as Tested Skin: Normal Color, Warm/Dry Progress/Results/Core Measures Suspected Sepsis Recent Fever Within 48 Hours: No Infection Criteria Present: None New/Unexplained Altered Menta: No Sepsis Screen: No Definite Risk SIRS Temperature:98.1 Pulse: 105 Respiratory Rate: 25 Laboratory Tests 09/04/18 08:24: White Blood Count 10.6 Blood Pressure 172 /110 Mean: 130 Laboratory Tests 09/04/18 08:24: Creatinine 1.10, INR Comment 1.0, Platelet Count 319, Total Bilirubin 1.0 Results/Orders Lab Results Laboratory Tests Test 09/04/18 08:24 Range/Units White Blood Count 10.6 4.3-11.0 10^3/uL Red Blood Count 5.33 4.35-5.85 10^6/uL Hemoglobin 14.9 13.3-17.7 G/DL Hematocrit 42 40-54 % Mean Corpuscular Volume 79 L 80-99 FL Mean Corpuscular Hemoglobin 28 25-34 PG Mean Corpuscular Hemoglobin Concent 35 32-36 G/DL Red Cell Distribution Width 14.3 10.0-14.5 % Platelet Count 319 130-400 10^3/uL Mean Platelet Volume 9.3 7.4-10.4 FL Neutrophils (%) (Auto) 73 42-75 % Lymphocytes (%) (Auto) 17 12-44 % Monocytes (%) (Auto) 5 0-12 % Eosinophils (%) (Auto) 4 0-10 % Basophils (%) (Auto) 0 0-10 % Neutrophils # (Auto) 7.8 1.8-7.8 X 10^3 Lymphocytes # (Auto) 1.8 1.0-4.0 X 10^3 Monocytes # (Auto) 0.6 0.0-1.0 X 10^3 Eosinophils # (Auto) 0.4 H 0.0-0.3 10^3/uL Basophils # (Auto) 0.0 0.0-0.1 10^3/uL Prothrombin Time 12.8 12.2-14.7 SEC INR Comment 1.0 0.8-1.4 Activated Partial Thromboplast Time 31 24-35 SEC Sodium Level 134 L 135-145 MMOL/L Potassium Level 5.3 H 3.6-5.0 MMOL/L Chloride Level 103 98-107 MMOL/L Carbon Dioxide Level 18 L 21-32 MMOL/L Anion Gap 13 5-14 MMOL/L Blood Urea Nitrogen 15 7-18 MG/DL Creatinine 1.10 0.60-1.30 MG/DL Estimat Glomerular Filtration Rate > 60 BUN/Creatinine Ratio 14 Glucose Level 233 H 70-105 MG/DL Calcium Level 9.6 8.5-10.1 MG/DL Corrected Calcium 9.4 8.5-10.1 MG/DL Magnesium Level 2.3 1.8-2.4 MG/DL Total Bilirubin 1.0 0.1-1.0 MG/DL Aspartate Amino Transf (AST/SGOT) 34 5-34 U/L Alanine Aminotransferase (ALT/SGPT) 25 0-55 U/L Alkaline Phosphatase 29 L 40-136 U/L Myoglobin 51.2 10.0-92.0 NG/ML Troponin I < 0.30 <0.30 NG/ML C-Reactive Protein High Sensitivity 1.15 H 0.00-0.50 MG/DL B-Type Natriuretic Peptide 489.3 H <100.0 PG/ML Total Protein 7.9 6.4-8.2 GM/DL Albumin 4.2 3.2-4.5 GM/DL My Orders Orders - TRISHA ANDRE MD Cbc With Automated Diff (09/04/18 08:09) Magnesium (09/04/18 08:09) Chest 1 View, Ap/Pa Only (09/04/18 08:09) Ekg Tracing (09/04/18 08:09) Cardiac Profile 1 (09/04/18 08:09) Comprehensive Metabolic Panel (09/04/18 08:09) Myoglobin Serum (09/04/18 08:09) Protime With Inr (09/04/18 08:09) Partial Thromboplastin Time (09/04/18 08:09) O2 (09/04/18 08:09) Monitor-Rhythm Ecg Trace Only (09/04/18 08:09) Saline Lock/Iv-Start (09/04/18 08:09) BNP (09/04/18 08:09) Hs C Reactive Protein (09/04/18 08:09) Nitroglycerin Ointment (Nitrobid Ointme (09/04/18 08:45) Furosemide Injection (Lasix Injection) (09/04/18 08:45) Amlodipine Tablet (Norvasc Tablet) (09/04/18 09:45) Furosemide Injection (Lasix Injection) (09/04/18 09:45) Medications Given in ED Vital Signs/I&O 09/04/18 11:35 Temp 98.1 Pulse 114 Resp 20 B/P (MAP) 155/99 (117) Pulse Ox 94 O2 Delivery Room Air Capillary Refill : Less Than 3 Seconds Blood Pressure Mean: 130 Progress Note #1: Time: 09:38 Progress Note Patient is feeling a little better after oxygen, Nitropaste and 40 mg of Lasix IV. Blood pressure still elevated. He appears to have some fluid overload and congestion based on x-ray and elevated BNP. I discussed the case with Dr. Hanson. It seems likely patient is having some hypertensive failure and withdraw from medications. He has not yet taken any of his morning medications. In addition to being out of amlodipine and Plavix, he also now recalls that he has not taken his clonidine in a couple of days. He takes all of his blood pressure medications in the morning except for clonidine which he takes at bedtime. I will have him take his Ramipril, amlodipine, metoprolol, and Plavix from his home medications. If this does not improve his heart rate and blood pressure, I will add clonidine. We will watch him for an hour or 2 to ensure he is stable. An additional 40 mg of Lasix is being given as suggested by Dr. Hanson. Progress Note #2: Progress Note Patient was feeling considerably improved. He diuresed a significant amount of fluid which improved his swelling and breathing. Blood pressure was trending down at the time of dismissal. A prescription was provided for clonidine and he will take it when he fills it this evening. ECG Initial ECG Impression Date: Sep 04, 2018 Initial ECG Impression Time: 08:08 Initial ECG Rate: 110 Initial ECG Rhythm: S.Tach Comment Sinus tachycardia with LVH and secondary repolarization abnormality. Similar to prior. No overt ST elevation or depression. No significant change in intervals. Diagnostic Imaging Diagonstic Imaging: Xray Plain Films/CT/US/NM/MRI: chest Comments Chest x-ray viewed by me and report reviewed. See report below: NAME: YVROSE GILLETTE [facility] REC#: [id number] PT STATUS: REG ER : 1955 PHYSICIAN: TRISHA ANDRE MD ADMIT DATE: 09/04/18/ER Signed Date of Exam: 09/04/18 CHEST 1 VIEW, AP/PA ONLY Indication: Short of breath. Upright portable chest shows heart size and vascularity to be upper normal. The lungs are clear. There is no effusion or pneumothorax. Impression: Heart size and vascularity have increased slightly but no infiltrates or effusions are seen and there is no other change from 02/17/2017. Dictated by: Dictated on workstation # [id number] Dict: 09/04/18 0854 Trans: 09/04/18 09 Interpreted by: THO DAUGHERTY MD Electronically signed by: THO DAUGHERTY MD 09/04/18 0900 Departure Impression Primary Impression: Hypertensive urgency Additional Impressions: Fluid overload Qualified Codes: E87.70 - Fluid overload, unspecified Anasarca Noncompliance with medications Disposition: HOME, SELF-CARE Condition: Improved Departure-Patient Inst. Decision time for Depature: 11:13 Referrals: [facility] (PCP) Primary Care Physician ELIAS ROLAND (Family) Primary Care Physician Add. Discharge Instructions: Resume taking your medications as prescribed. Fill clonidine and started as prescribed. Return to the emergency room if you have worsening of symptoms again. Follow-up with your primary care provider and Dr. Tracy as soon as possible. Please call on Thursday morning to schedule follow-up. All discharge instructions reviewed with patient and/or family. Voiced understanding. Scripts Clonidine HCl (Clonidine HCl) 0.1 Mg Tablet 0.1 MG PO BID, #30 TAB Prov: TRISHA ANDRE MD 09/04/18 Copy Copies To 1: RANJAN TRACY MD [facility]S Copies To 2: MAYDA KELLOGG JOSHUA T MD Sep 04, 2018 09:41
[2018-09-04] MEDS ORDERED: amLODIPine 10 MG (NORVASC) TAB PO ONE (09:45)
--- NOTE | 2018-09-04 09:52 | NUR ---
PT HAS VOIDED 800CC TOTAL SINCE 1ST DOSE OF LASIX GIVEN
--- NOTE | 2018-09-04 09:52 | NUR ---
RAMIPRIL ALSO TAKEN
[2018-09-04] MEDS ORDERED: CLON0.1T PO (11:13)
--- NOTE | 2018-09-04 11:15 | NUR ---
PT HAS VOIDED AN ADDITIONAL 800CC OF URINE
[2018-09-04 11:35] VITALS: BP 155/99
== END 2018-09-04 11:37 | disposition home or self-care (01) ==
LOC: EDUNIT# 08:06 → ER 08:07
DX: I16.0 Hypertensive urgency (principal); E87.70 Fluid overload, unspecified; R60.1 Generalized edema; I25.10 Atherosclerotic heart disease of native coronary artery without angina pectoris; G47.30 Sleep apnea, unspecified; E78.00 Pure hypercholesterolemia, unspecified; I10 Essential (primary) hypertension; E11.51 Type 2 diabetes mellitus with diabetic peripheral angiopathy without gangrene; I73.9 Peripheral vascular disease, unspecified; F41.9 Anxiety disorder, unspecified; M10.9 Gout, unspecified; Z98.61 Coronary angioplasty status; Z95.5 Presence of coronary angioplasty implant and graft; Z87.19 Personal history of other diseases of the digestive system; Z86.73 Personal history of transient ischemic attack (TIA), and cerebral infarction without residual deficits; Z82.49 Family history of ischemic heart disease and other diseases of the circulatory system; Z88.5 Allergy status to narcotic agent; Z88.8 Allergy status to other drugs, medicaments and biological substances; Z79.82 Long term (current) use of aspirin; Z79.02 Long term (current) use of antithrombotics/antiplatelets; Z79.4 Long term (current) use of insulin; Z91.14 Patient's other noncompliance with medication regimen
CPT/HCPCS: 36415; 71045; 80053; 83735; 83874; 83880; 84484; 85025; 85610; 85730; 86141; 93041; 96374; 96376

== ENCOUNTER → 2019-02-02 | Outpatient (CLI) | payer SELFPAY ==
[~2019-02-02] MED LIST changes: -AMLO10TA6 PO; +AMLO10TA7 PO; -AMLO5TAB7 PO; +AMLO5TAB9 PO; -GABA600T2 PO; +GBPN600T PO
[2019-02-02 12:21] LABS: ALBUMIN 4.5 GM/DL (3.2-4.5); BILIRUBIN,TOTAL 0.4 MG/DL (0.1-1.0); CALCIUM 9.9 MG/DL (8.5-10.1); CREATININE SERUM 1.49 MG/DL (0.60-1.30); POTASSIUM 4.5 MMOL/L (3.6-5.0); TOTAL PROTEIN 7.8 GM/DL (6.4-8.2)
== END ==
LOC: RAD 11:21
PROVIDERS: ATTEND Nurse Practitioner Community Health
DX: R47.02 Dysphasia (principal); R47.81 Slurred speech; R13.19 Other dysphagia; E11.9 Type 2 diabetes mellitus without complications
CPT/HCPCS: 36415; 80053

== ENCOUNTER → 2019-03-04 | Outpatient (CLI) | payer OTHER ==
--- NOTE | 2019-03-04 15:17 | Diagnostic Imaging Report ---
PROCEDURE: CT head with and without contrast. TECHNIQUE: Multiple contiguous axial images were obtained through the brain before and after the administration of intravenous contrast. Auto Exposure Controls were utilized during the CT exam to meet ALARA standards for radiation dose reduction. INDICATION: Left eyelid drooping with trouble chewing and eating. Comparison made with prior examination from 05/21/2016. FINDINGS: The ventricles and sulci are within normal limits. There is no hydrocephalus. There is no midline shift. There is no intracranial mass, hemorrhage, or extra-axial fluid collection. There is no evidence of an acute CVA. There is some fluid in the right maxillary sinus. The remaining sinuses and mastoid air cells are clear. IMPRESSION: No acute intracranial abnormality. Mucosal thickening and some fluid in the right maxillary sinus. Dictated by: Dictated on workstation # [id number]
== END ==
LOC: RAD 13:53
PROVIDERS: ATTEND Nurse Practitioner Community Health
DX: J34.89 Other specified disorders of nose and nasal sinuses (principal); H02.402 Unspecified ptosis of left eyelid; R13.19 Other dysphagia; R47.81 Slurred speech; R47.02 Dysphasia
CPT/HCPCS: 70470

== ENCOUNTER → 2019-07-28 | Outpatient (CLI) | payer OTHER ==
--- NOTE | 2019-07-28 11:09 | Diagnostic Imaging Report ---
PROCEDURE: US carotid duplex, bilateral. TECHNIQUE: Multiple real-time grayscale images were obtained over the carotid arteries in various projections, bilaterally. Additional spectral analysis and color Doppler duplex images were also obtained. INDICATION: Coronary artery disease and hypertension. COMPARISON: 09/10/2015 FINDINGS: Parameters based on the consensus panel Cerna-Scale and Doppler ultrasound criteria published July 2003, Radiology, Volume 229. DOPPLER (peak systolic velocity M/S Right Left CCA 1.16 1.21 ICA Proximal 1.07 .84 ICA Mid .74 .95 ICA Distal .95 .76 RATIO .9 .8 ECA 1.85 .93 VERT .77 .46 Right carotid circulation: The right common carotid artery is normal in course and caliber. There is mild plaque formation in the right carotid bifurcation. Based on grayscale images and flow velocity criteria, there are no hemodynamically significant stenoses. Left carotid circulation: The left common carotid artery is normal in course and caliber. There is mild plaque formation in the left carotid bifurcation. Based on grayscale images and flow velocity criteria, there are no hemodynamically significant stenoses. Flow in the bilateral vertebral arteries is antegrade. IMPRESSION: 1. Mild (<50%) stenosis of the right internal carotid artery. 2. Mild (<50%) stenosis of the left internal carotid artery. Society of Radiologist in Ultrasound Consensus: Normal: ICA PSV is <125 cm/sec and no plaque or intimal thickening is visible sonographically ICA/CCA PSV ratio <2.0 ICA EDV <40 cm/sec Mild (<50% ICA stenosis): ICA PSV is <125 cm/sec and plaque or intimal thickening is visible sonographically ICA/CCA PSV ratio <2.0 ICA EDV <40 cm/sec Moderate (50-69% ICA stenosis) ICA PSV is 125-230 cm/sec and plaque is visible sonographically ICA/CCA PSV ratio of 2.0-4.0 ICA EDV of 40-100 cm/sec Severe (?70% ICA stenosis but less than near occlusion): ICA PSV is >230 cm/sec and visible plaque and luminal narrowing are seen at cerna-scale and color Doppler ultrasound (the higher the Doppler parameters lie above the threshold of 230 cm/sec, the greater the likelihood of severe disease) ICA/CCA PSV ratio >4 ICA EDV >100 cm/sec Near occlusion of the ICA Velocity parameters may not apply, since velocities may be high, low, or undetectable Markedly narrowed lumen at color or power Doppler ultrasound Total occlusion of the ICA: No detectable patent lumen at cerna-scale ultrasound and no flow with spectral, power, and color Doppler ultrasound May be compensatory increased velocity in the contralateral carotid. Dictated by: Dictated on workstation # [id number]
== END ==
LOC: CARD 08:34
PROVIDERS: ATTEND Nurse Practitioner Family
DX: I25.10 Atherosclerotic heart disease of native coronary artery without angina pectoris (principal); I65.23 Occlusion and stenosis of bilateral carotid arteries; I73.9 Peripheral vascular disease, unspecified; I10 Essential (primary) hypertension; E78.2 Mixed hyperlipidemia
CPT/HCPCS: 93880

== ENCOUNTER 2019-09-27 08:29 | Day surgery (SDC) | payer OTHER ==
[2019-09-27] VITALS (13 sets, daily range): BP systolic 113–157; BP diastolic 64–88
[~2019-09-27] VITALS: Ht 172.7 cm; Wt 93.0 kg
[~2019-09-27 08:29] MED LIST changes: -METO-370 PO; -METO-395 PO; +METO50TA7 PO
[2019-09-27] MEDS ORDERED: LIDOCAINE 1% INJ 20 ML 20 ML VIAL ONE (08:35)
[2019-09-27] MEDS ORDERED: HEParin (CATH LAB) 2,000 ML IV ONE (08:35)
[2019-09-27] MEDS ORDERED: NS IV 1000 ML 1,000 ML ONE ×2 (08:35→11:48)
[2019-09-27] MEDS ORDERED: NS IV 1000 ML 1,000 ML IV SCH ×2 (08:45→12:17)
[2019-09-27 09:44] LABS: HEMOGLOBIN 15.6 G/DL (13.3-17.7); MEAN PLATELET VOLUME 9.7 FL (7.4-10.4); RED CELL DISTRIBUTION WIDTH 13.5 % (10.0-14.5); WHITE BLOOD COUNT 11.2 10^3/uL (4.3-11.0)
[2019-09-27 09:50] LABS: PROTHROMBIN TIME PATIENT 13.1 SEC (12.2-14.7)
[2019-09-27 10:01] LABS: ALBUMIN 4.2 GM/DL (3.2-4.5); BILIRUBIN,TOTAL 0.7 MG/DL (0.1-1.0); CREATININE SERUM 1.38 MG/DL (0.60-1.30); POTASSIUM 4.6 MMOL/L (3.6-5.0); TOTAL PROTEIN 7.5 GM/DL (6.4-8.2)
[2019-09-27] MEDS ORDERED: GABA800T10 PO (10:09)
[2019-09-27] MEDS ORDERED: MIDAZOLAM 5 MG/5 ML (VERSED) VIAL ONE (11:03)
[2019-09-27] MEDS ORDERED: fentaNYL INJECTION 100 MCG/2 ML AMP ONE (11:03)
[2019-09-27] MEDS ORDERED: CLON0.1T PO (11:12)
--- NOTE | 2019-09-27 11:19 | Cardiac Procedure Note-CS/ASA ---
Pre-Procedure Note Pre-Op Procedure Note H&P Reviewed The H&P was reviewed, patient examined and no changes noted. Date H&P Reviewed: Sep 27, 2019 Time H&P Reviewed: 11:19 Conscious Sedation Pre-Proced Time 11:19 ASA Score 3 For ASA 3 and 4: Consider anesthesia and medical clearance. Also, for patients with a history of failed moderate sedation consider anesthesia. Airway Lungs Heart ASA score ASA 1: a normal healthy patient ASA 2: a patient with a mild systemic disease (mid diabetes, controlled hypertension, obesity ASA 3: a patient with a severe systemic disease that limits activity (angina, COPD, prior Myocardial infarction) ASA 4: a patient with an incapacitating disease that is a constant threat to life (CHF, renal failure) ASA 5: a moribund patient not expected to survive 24 hrs. (ruptured aneurysm) ASA 6: a declared brain- patient whose organs are being harvested. For emergent operations, add the letter E after the classification Mallampati Classification Grade 2 Sedation Plan Analgesia, Amnesia, Plan communicated to team members, Discussed options with patient/fam, Discussed risks with patient/fam The patient is an appropriate candidate to undergo the planned procedure, sedation, and anesthesia. The patient immediately re-assessed prior to indication. RANJAN CABRERA MD FACP FAC CCDS Sep 27, 2019 11:19
[2019-09-27] MEDS ORDERED: HEParin 1000 UNIT/ML (10ML VIAL) FOR BOLUS ONE (11:41)
[2019-09-27] MEDS ORDERED: NITRO DRIP 25000 MCG/D5W 0 ML IV ONE (11:42)
[2019-09-27] MEDS ORDERED: EPTIFIBATIDE BOLUS 20 ML IV ONE (11:42)
[2019-09-27] MEDS ORDERED: PRAV20TA3 PO (12:20)
--- NOTE | 2019-09-27 12:20 | Discharge Inst-Post CATH ---
Discharge Inst-CATH/EP Post Cardiac Cath/EP D/C Inst Follow Up/Plan F/u with Dr Tracy in one week ACTIVITY * Go Home directly and rest. * Limit activity of the leg (or wrist if it was used) for 7 days including aerobics, swimming, jogging, bicycling, etc. * Restrict stair-climbing for 7 days if possible, if not, climb up with your non-cath leg, then bring together on the same step. * Avoid lifting, pushing, pulling or excessive movement of the affected e xtremity for 7 days. * Customary sexual activity may be resumed after 2 days-use caution not to use a position that strains or causes pain to the affected extremity. * No driving for 24 hours. * NO SMOKING. * Avoid straining for bowel movements for 7 days. * Gentle walking on level ground is allowed. * Returning to work will depend on the type of procedure and the results. Your doctor will discuss this with you. CALL YOUR DOCTOR FOR ANY OF THE FOLLOWING: *If bleeding from the puncture site occurs- Apply gentle pressure to site with clean cloth and call your doctor or EMS. * If a knot or lump forms under the skin, increases in size, or causes pain. * If bruising appears to be worsening or moving further down your leg instead of disappearing. * Temperature above 101 F. CARE OF YOUR GROIN INCISION; * Bruising or purple discoloration of the skin near the puncture site is common. * You may shower only, no bathtub bathing for 5 days. Be careful to avoid slipping as your leg may feel stiff. * If a closure device was used on your femoral artery, please see the attached guide regarding care of the device and your leg. * Leave dressing on FOR 24 hours. CARE OF YOUR WRIST INCISION; * Bruising or purple discoloration of the skin near the puncture site is common. * You may shower. * DO NOT submerge wrist. * Leave dressing on FOR 24 hours. RANJAN TRACY MD FACP FAC CCDS Sep 27, 2019 12:20
--- NOTE | 2019-09-27 12:21 | Discharge Inst-Cardiology ---
Discharge Inst-Cardiac Discharge Medications New Medications: Pravastatin Sodium (Pravastatin Sodium) 20 Mg Tablet 20 MG PO DAILY, #30 TAB 3 Refills Continued Medications: Amlodipine Besylate (Amlodipine Besylate) 10 Mg Tablet 10 MG PO DAILY, TAB Aspirin (Aspirin) 81 Mg Tab.chew 81 MG PO DAILY, TAB Celecoxib (Celecoxib) 200 Mg Capsule 200 MG PO BID Clonidine HCl (Clonidine HCl) 0.1 Mg Tablet 0.1 MG PO BID, TAB Clopidogrel Bisulfate (Clopidogrel) 75 Mg Tablet 75 MG PO DAILY Fish Oil/Dha/Epa (Fish Oil 1,200 mg Fish Oil) 1 Each Capsule 1 EACH PO DAILY, CAP Gabapentin (Gabapentin) 800 Mg Tablet 800 MG PO TID, TAB Insulin Aspart (Novolog) 100 Unit/1 Ml Susp 28 UNIT SQ TIDAC, EACH Insulin Degludec (Tresiba Flextouch U-100) 100 Unit/1 Ml Insuln.pen 100 UNIT SQ HS, EA Pantoprazole Sodium (Pantoprazole Sodium) 40 Mg Tablet.dr 40 MG PO DAILY, TAB RANJAN CABRERA MD FACP FACC CCDS Sep 27, 2019 12:21
[2019-09-27] MEDS ORDERED: PATIENT MAY USE OWN MEDS, ALL PO SCH (12:30)
--- NOTE | 2019-09-27 13:16 | NUR ---
SPOKE TO THE PT (HE HAS HIS MED BOTTLES) WELL CALLING [facility] AND [facility] (REPOSITORY AND PALS PROGRAM) TO COMPLETE THE MED REC. RAMIPRIL 5MG: PT SAYS HE TAKES 1 TAB DAILY- HOWEVER IT WAS FILLED THRU THE REPOSITORY FOR A 90 DAY SUPPLY IN 02-23-19 AND HAS NOT PICKED IT UP SINCE. EVEN THOUGH HIS BOTTLE HAD TABS IN IT I LEFT IT OFF THE MED REC. METOPROLOL ER 100MG: PT SAYS HE TAKES 1 TAB DAILY (ALONG WITH A 50MG) BUT IT HAS NOT BEEN PICKED UP SINCE 11-09-2018 SO EVEN THOUGH THERE WERE TABS IN THE BOTTLE IT WAS LEFT OFF THE MED REC. METOPROLOL ER 50MG: PT SAYS HE ALSO TAKES 1 TAB OF THE 50MG TO EQUAL 150MG DAILY, HOWEVER THIS HAS NOT BEEN FILLED RECENTLY- SO THIS ALSO WAS LEFT OFF THE MED REC. ATORVASTATIN 10MG: PT SAYS HE WAS TAKING THIS BUT THE RX RAN OUT AND HAS NEVER PICKED IT UP AGAIN. WHEN I SPOKE TO [facility] ABOUT THE REPOSITORY MEDS THEY STATED HE PICKED UP ATORVASTATIN ON 11-09-2018 #90, FOR THIS REASON I LEFT OFF THE MED REC. THE FOLLOWING ARE FILL DATES: 07-20-2019 GABAPENTIN #90/30DS 08-22-2019 AMLODIPINE #30/30DS 09-02-2019 CELEBREX #60/30DS 09-03-2019 PANTOPRAZOLE #30/30DS 09-10-2019 CLOPIDOGREL #30/30DS 09-12-2019 CLONIDINE #60/30DS THE FOLLOWING WERE DISPENSED THRU THE PALS PROGRAM ON 09-09-2019 FOR 90 DAY SUPPLY: TRESIBA AND NOVOLOG OTC MEDS: FISH OIL ASPIRIN
--- NOTE | 2019-09-27 15:00 | CARDIAC CATHETERIZATION ---
DATE OF SERVICE: 09/27/2019 CARDIAC CATHETERIZATION REPORT INDICATIONS: The patient is a 64-year-old man who is known to have coronary artery disease and who has been experiencing symptoms of weakness and intermittent shortness of breath. Cardiac catheterization was carried out today after having obtained informed consent. DESCRIPTION OF PROCEDURE: He was brought to the cardiac catheterization laboratory in a fasting state. Right groin was prepared and draped in the usual sterile fashion. Lidocaine 1% was used for local anesthesia. Modified Seldinger technique was used to advance a 5-Indian sheath in the right femoral artery, 5-Indian JL4 catheter for left coronary angiography, JR4 catheter was used for right coronary angiography, 5-Indian pigtail catheter was used for left heart catheterization. Left ventricular angiography was not performed. This was to conserve contrast because of the patient's chronic kidney disease. HEMODYNAMICS: Left ventricular end-diastolic pressure following coronary angiography was 13 mmHg. There is no significant pressure gradient on pullback across the aortic valve. Ascending aortic pressure was 109/67 with a mean of 77 mmHg. CORONARY ANGIOGRAPHY: Left main coronary artery does not exhibit significant obstructive disease. The left anterior descending artery has a long stented segment in its mid portion that is patent and without significant stenosis. The distal right coronary artery has multiple 90% stenoses, but the vessel here is of a small caliber and not amenable to intervention. The left circumflex artery has a diffuse mild plaque. The right coronary artery is known to be dominant. It is occluded in its distal portion, had a distal stent. The proximal stent is patent. There is moderate mid vessel disease of the right coronary artery. PERCUTANEOUS CORONARY INTERVENTION TO THE RIGHT CORONARY: Following completion of the diagnostic procedure, we exchanged the sheath over a wire for a 6-Indian sheath. We used a 6-Indian JR4 guide catheter with side holes. We gave 7000 units of intravenous heparin and a bolus of Integrilin. We engaged the right coronary artery with a 6-Indian JR4 guide catheter with side holes. We used multiple wires, including ChoICE floppy and ChoICE PT Graphix, and ChoICE PT extra support wires. We were not able to cross the chronic total occlusion in the distal right coronary artery. It did not appear that further attempts would be fruitful. We repeated angiography of the right coronary artery at the end of the attempts to percutaneous intervention of the distal right coronary artery. The coronary status remains unchanged. The angioplasty equipment was removed. Angiography of the right femoral artery was carried out through the sheath. Mynx was used to achieve hemostasis. He tolerated the procedure well. CONCLUSIONS: 1. Coronary artery disease consisting of severe distal disease of the terminal left anterior descending where the vessel is of a very small caliber and not amenable to intervention. The mid left anterior descending artery has a widely patent stented segment (known to be overlapping Promus 3.0 x 12 and 2.25 x 16 mm stents, the overlap of which has been treated with a 3 mm balloon). The right coronary artery exhibits a chronic total occlusion within the stented distal part of the vessel and attempts at percutaneous intervention to this vessel today were unsuccessful. The left circumflex artery exhibits mild plaque. 2. Mildly elevated left ventricular end-diastolic pressure. DISCUSSION AND RECOMMENDATIONS: Risk factor modification was again reviewed with him. Plan is to continue medical therapy and optimize it as tolerated and as needed. Close outpatient followup is advised. Job ID: [id number] DocumentID: [id number] Dictated Date: 09/27/2019 12:15:06 Sas Programmer Analyst Date: 09/27/2019 14:59:10 Dictated By: RANJAN CABRERA MD, MA, FACP, FACC, MTDD
== END 2019-09-27 17:40 | disposition home or self-care (01) ==
LOC: CATH 08:29 → SDC 12:29 → CATH 17:40
PROVIDERS: ATTEND Internal Medicine Cardiovascular Disease
DX: I25.119 Atherosclerotic heart disease of native coronary artery with unspecified angina pectoris (principal); I11.0 Hypertensive heart disease with heart failure; I50.9 Heart failure, unspecified; E11.9 Type 2 diabetes mellitus without complications; M10.9 Gout, unspecified; E78.2 Mixed hyperlipidemia; Z79.82 Long term (current) use of aspirin; Z79.899 Other long term (current) drug therapy; Z79.02 Long term (current) use of antithrombotics/antiplatelets; Z79.84 Long term (current) use of oral hypoglycemic drugs; Z88.5 Allergy status to narcotic agent; Z88.8 Allergy status to other drugs, medicaments and biological substances; Z86.73 Personal history of transient ischemic attack (TIA), and cerebral infarction without residual deficits; Z88.2 Allergy status to sulfonamides
CPT/HCPCS: 36415; 80053; 80061; 85027; 85610; 85730; 87081; 93005; 93458

== ENCOUNTER 2019-10-10 07:19 | Inpatient (IN) | payer MEDICARE, OTHER ==
[~2019-10-10] VITALS: Ht 172.2 cm; Wt 92.7 kg
[~2019-10-10 07:19] MED LIST changes: +GABA800T10 PO; +PRAV20TA3 PO
[2019-10-10] MEDS ORDERED: NS IV 500 ML 500 ML IV ONE (07:39)
--- NOTE | 2019-10-10 07:40 | NUR ---
ATTEMPT TO START IV WHICH WAS UNSUCCESSFUL.
[2019-10-10] MEDS ORDERED: RT-ALBUTEROL/IPRATROPIUM 3 ML (DUONEB) VIAL INH ONE (07:45)
--- NOTE | 2019-10-10 07:45 | NUR ---
RT IN ROOM. PT REQUESTED [facility] TO START HIS IV WITH ULTRASOUND ET HARVEY CONTACTED WHO STATES HE WILL COME.
--- NOTE | 2019-10-10 07:47 | ED Respiratory ---
General Stated Complaint: SOA Source: patient Exam Limitations: no limitations History of Present Illness Date Seen by Provider: Oct 10, 2019 Time Seen by Provider: 07:29 Initial Comments Patient presents to the ER by private conveyance with his spouse and chief complaint of shortness of air weakness and tiredness for the past week. He is not able to get any sleep for the past week. He does not rely on oxygen at home nor does he have any known pulmonary disease but he does have extensive cardiac disease. He is being worked up by Dr. Tracy. He had a heart catheter within the last month but he says they did not do any stenting on. He had an echocardiogram scheduled. He denies any weight gain, swelling in his hands or feet, cough, naus ea, chest pain, sweats, fever, chills or sick contacts. He does not take breathing treatments. He has not had his morning meds yet but he does take Plavix and is a diabetic on insulin. He takes 26 units of NovoLog 3 times a day. He also has a history of lupus. Allergies and Home Medications Allergies Coded Allergies: carvedilol (Unverified Allergy, Unknown, 01/22/10) codeine (Unverified Allergy, Unknown, PATIENT HAS RECEIVED MORPHINE WITHOUT ISSUE, 06/08/15) Home Medications Amlodipine Besylate 10 Mg Tablet, 10 MG PO DAILY, (Reported) Aspirin 81 Mg Tab.chew, 81 MG PO DAILY, (Reported) Celecoxib 200 Mg Capsule, 200 MG PO BID, (Reported) Clonidine HCl 0.1 Mg Tablet, 0.1 MG PO BID, (Reported) Clopidogrel Bisulfate 75 Mg Tablet, 75 MG PO DAILY, (Reported) Fish Oil/Dha/Epa 1 Each Capsule, 1 EACH PO DAILY, (Reported) Gabapentin 800 Mg Tablet, 800 MG PO TID, (Reported) Insulin Aspart 100 Unit/1 Ml Susp, 28 UNIT SQ TIDAC, (Reported) Insulin Degludec 100 Unit/1 Ml Insuln.pen, 100 UNIT SQ HS, (Reported) Pantoprazole Sodium 40 Mg Tablet.dr, 40 MG PO DAILY, (Reported) Pravastatin Sodium 20 Mg Tablet, 20 MG PO DAILY Prescribed by: RANJAN TRACY on 09/27/19 1220 Patient Home Medication List Home Medication List Reviewed: Yes Review of Systems Review of Systems Constitutional: No chills, No fever, No malaise EENTM: No ear discharge, No ear pain Respiratory: No cough; short of breath; No wheezing Cardiovascular: No chest pain, No edema; Hx of Intervention; No palpitations Gastrointestinal: No abdominal pain, No nausea, No vomiting Genitourinary: No discharge, No dysuria Musculoskeletal: No back pain, No joint pain Skin: No pruritus, No rash Psychiatric/Neurological: Denies Headache, Denies Numbness All Other Systems Reviewed Negative Unless Noted: Yes Past Lwlpmgd-Etkyth-[id number] Hx Patient Social History Alcohol Use: Denies Use Recreational Drug Use: No Smoking Status: Never a Smoker 2nd Hand Smoke Exposure: No Recent Hopitalizations: No Immunizations Up To Date Tetanus Booster (TDap): More than 5yrs PED Vaccines UTD: Yes Date of Pneumonia Vaccine: Sep 27, 2013 Date of Influenza Vaccine: May 08, 2015 Seasonal Allergies Seasonal Allergies: No Past Medical History Surgeries: Yes Coronary Stent Respiratory: Yes Sleep Apnea Currently Using CPAP: No Currently Using BIPAP: No Cardiac: Yes Coronary Artery Disease, High Cholesterol, Hypertension Neurological: Yes TIA Reproductive Disorders: No Genitourinary: No Gastrointestinal: Yes Ulcer Musculoskeletal: Yes Arthritis, Gout Endocrine: Yes Diabetes, Insulin dep Loss of Vision: Denies Hearing Impairment: Hard of Hearing Cancer: No Psychosocial: Yes Sleep Difficulties, Anxiety Integumentary: No Blood Disorders: No Adverse Reaction/Blood Tranf: No Family Medical History Alcoholism 19 FATHER Cancer 19 FATHER 19 MOTHER Chest pain 19 MOTHER Family history: Arthritis (grandmother) G8 SISTER Family history: Cardiovascular disease 19 MOTHER Family history: Diabetes mellitus G8 SISTER Family history: Hypertension 19 FATHER 19 MOTHER Hearing loss 19 FATHER Heart disease 19 MOTHER Malignant neoplasm of lung 19 MOTHER Myocardial infarction 19 MOTHER Stroke 19 FATHER No Pertinent Family Hx Physical Exam Vital Signs - First Documented 10/10/19 10/10/19 07:19 07:45 Temp 35.4 Pulse 85 Resp 16 B/P (MAP) 180/95 (123) Pulse Ox 89 O2 Delivery Room Air O2 Flow Rate 2.00 Capillary Refill : Height: 5'8.00" Weight: 205lbs. 0.0oz. [id number]; 31.18 BMI Method:Stated General Appearance: WD/WN, moderate distress Eyes: Bilateral Eye Normal Inspection, Bilateral Eye PERRL, Bilateral Eye EOMI HEENT: PERRL/EOMI, normal ENT inspection, TMs normal, pharynx normal Neck: full range of motion, supple Respiratory: respiratory distress (moderate), decreased breath sounds, accessory muscle use Cardiovascular: normal peripheral pulses, regular rate, rhythm Gastrointestinal: normal bowel sounds, non tender, soft Extremities: normal range of motion, non-tender, normal inspection, slow cap illary refill Neurologic/Psychiatric: alert, normal mood/affect, oriented x 3 Skin: normal color, warm/dry Focused Exam Lactate Level 10/10/19 08:10: Lactic Acid Level 1.65 Lactic Acid Level Laboratory Tests Test 10/10/19 08:10 Lactic Acid Level 1.65 MMOL/L (0.50-2.00) Progress/Results/Core Measures Suspected Sepsis SIRS Temperature: Pulse: Respiratory Rate: Laboratory Tests 10/10/19 08:10: White Blood Count 10.2 Blood Pressure / Mean: 10/10/19 08:10: Lactic Acid Level 1.65 Laboratory Tests 10/10/19 08:10: Creatinine 1.16, INR Comment 1.0, Platelet Count 369, Total Bilirubin 0.8 Results/Orders Lab Results Laboratory Tests Test 10/10/19 07:42 10/10/19 07:53 10/10/19 08:10 Range/Units Glucometer 143 H 70-110 MG/DL Blood Gas Puncture Site R RADIAL Blood Gas Patient Temperature 35.4 Arterial Blood pH 7.41 7.37-7.43 Arterial Blood Partial Pressure CO2 37 35-45 MMHG Arterial Blood Partial Pressure O2 54 L 79-93 MMHG Arterial Blood HCO3 24 23-27 MMOL/L Arterial Blood Total CO2 24.7 21.0-31.0 MMOL/L Arterial Blood Oxygen Saturation 89 L 94-100 % Arterial Blood Base Excess -0.9 -2.5-2.5 MMOL/L Al Test YES-POS Blood Gas Ventilator Setting NO Blood Gas Inspired Oxygen 2 White Blood Count 10.2 4.3-11.0 10^3/uL Red Blood Count 5.08 4.35-5.85 10^6/uL Hemoglobin 14.3 13.3-17.7 G/DL Hematocrit 43 40-54 % Mean Corpuscular Volume 84 80-99 FL Mean Corpuscular Hemoglobin 28 25-34 PG Mean Corpuscular Hemoglobin Concent 33 32-36 G/DL Red Cell Distribution Width 13.9 10.0-14.5 % Platelet Count 369 130-400 10^3/uL Mean Platelet Volume 9.7 7.4-10.4 FL Neutrophils (%) (Auto) 74 42-75 % Lymphocytes (%) (Auto) 17 12-44 % Monocytes (%) (Auto) 4 0-12 % Eosinophils (%) (Auto) 4 0-10 % Basophils (%) (Auto) 0 0-10 % Neutrophils # (Auto) 7.5 1.8-7.8 X 10^3 Lymphocytes # (Auto) 1.7 1.0-4.0 X 10^3 Monocytes # (Auto) 0.5 0.0-1.0 X 10^3 Eosinophils # (Auto) 0.4 H 0.0-0.3 10^3/uL Basophils # (Auto) 0.0 0.0-0.1 10^3/uL Prothrombin Time 13.5 12.2-14.7 SEC INR Comment 1.0 0.8-1.4 Activated Partial Thromboplast Time 35 24-35 SEC D-Dimer 0.71 H 0.00-0.49 UG/ML Sodium Level 139 135-145 MMOL/L Potassium Level 4.1 3.6-5.0 MMOL/L Chloride Level 105 98-107 MMOL/L Carbon Dioxide Level 23 21-32 MMOL/L Anion Gap 11 5-14 MMOL/L Blood Urea Nitrogen 13 7-18 MG/DL Creatinine 1.16 0.60-1.30 MG/DL Estimat Glomerular Filtration Rate > 60 BUN/Creatinine Ratio 11 Glucose Level 174 H 70-105 MG/DL Lactic Acid Level 1.65 0.50-2.00 MMOL/L Calcium Level 9.4 8.5-10.1 MG/DL Corrected Calcium 9.2 8.5-10.1 MG/DL Magnesium Level 1.9 1.6-2.4 MG/DL Total Bilirubin 0.8 0.1-1.0 MG/DL Aspartate Amino Transf (AST/SGOT) 20 5-34 U/L Alanine Aminotransferase (ALT/SGPT) 27 0-55 U/L Alkaline Phosphatase 33 L 40-136 U/L Myoglobin 46.0 10.0-92.0 NG/ML Troponin I 0.046 H <0.028 NG/ML C-Reactive Protein High Sensitivity 1.04 H 0.00-0.50 MG/DL B-Type Natriuretic Peptide 761.2 H <100.0 PG/ML Total Protein 7.6 6.4-8.2 GM/DL Albumin 4.2 3.2-4.5 GM/DL Micro Results Microbiology 10/10/19 Influenza Types A,B Antigen ([facility]IVER) - Final, Complete My Orders Orders - OCTAVIO GRAY Albuterol/Ipra Inhalation Soln (Duoneb I (10/10/19 07:45) Ed Iv/Invasive Line Start (10/10/19 07:39) Ns Iv 500 Ml (Sodium Chloride 0.9%) (10/10/19 07:39) Svn Small Volume Nebulizer (10/10/19 07:39) Cbc With Automated Diff (10/10/19 07:39) Comprehensive Metabolic Panel (10/10/19 07:39) Hs C Reactive Protein (10/10/19 07:39) Continuous Ekg Monitoring (10/10/19 07:39) Ekg Tracing (10/10/19 07:39) Troponin I (10/10/19 07:39) Influenza A And B Antigens (10/10/19 07:39) Accucheck Stat ONCE (10/10/19 07:39) Protime With Inr (10/10/19 07:51) Partial Thromboplastin Time (10/10/19 07:51) O2 (10/10/19 07:51) Lipid Panel (10/11/19 06:00) BNP (10/10/19 07:51) Fibrin Degradation Products (10/10/19 07:51) Aspirin Chewable Tablet (Baby Aspirin Ch (10/10/19 08:00) Blood Culture (10/10/19 07:53) Sputum Culture (10/10/19 07:53) Remove Rings In Anticipation O (10/10/19 07:53) Lactic Acid Analyzer (10/10/19 07:53) Arterial Blood Gas (10/10/19 07:53) Arterial Blood Draw (10/10/19 ) Magnesium (10/10/19 08:10) Myoglobin Serum (10/10/19 08:10) Chest 1 View, Ap/Pa Only (10/10/19 08:30) Ceftriaxone For Iv Use (Rocephin For I (10/10/19 09:15) Azithromycin Injection (Zithromax Inject (10/10/19 09:15) Ct Angio Chest W (10/10/19 09:05) Iohexol Injection (Omnipaque 350 Mg/Ml 1 (10/10/19 09:15) Received Contrast (Hold Metformin- Contr (10/10/19 09:15) Ns (Ivpb) (Sodium Chloride 0.9% Ivpb Bag (10/10/19 09:15) Medications Given in ED Current Medications Medications Dose Ordered Sig/Nicol Route Start Time Stop Time Status Last Admin Dose Admin Albuterol/ Ipratropium 3 ml ONCE ONCE INH 10/10/19 07:45 10/10/19 07:46 DC 10/10/19 07:45 3 ML Azithromycin 500 mg/Sodium Chloride 250 ml @ 250 mls/hr ONCE ONCE IV 10/10/19 09:15 10/10/19 10:14 DC 10/10/19 09:17 250 MLS/HR Ceftriaxone Sodium 1000 mg/ Sterile Water 10 ml @ 200 mls/hr ONCE ONCE IV 10/10/19 09:15 10/10/19 09:17 DC 10/10/19 09:13 200 MLS/HR Iohexol 100 ml ONCE ONCE IV 10/10/19 09:15 10/10/19 09:16 DC 10/10/19 10:27 85 ML Sodium Chloride 100 ml ONCE ONCE IV 10/10/19 09:15 10/10/19 09:16 DC 10/10/19 10:27 80 ML Sodium Chloride 500 ml @ 0 mls/hr Q0M ONCE IV 10/10/19 07:39 10/10/19 07:42 DC 10/10/19 08:47 500 MLS/HR Vital Signs/I&O 10/10/19 10/10/19 10/10/19 07:19 07:45 07:59 Temp 35.4 Pulse 85 84 Resp 16 28 B/P (MAP) 180/95 (123) Pulse Ox 89 94 95 O2 Delivery Room Air Nasal Cannula O2 Flow Rate 2.00 40.00 Capillary Refill : Progress Note #1: Time: 07:47 Progress Note Nonspecific symptoms of restlessness, shortness of breath. He is diminished but we'll give him some albuterol and see how that changes. An ABG has been obtained. He has rapid respiratory rate and 26-30 range and is on 2 L by nasal cannula to keep his oxygen sats in the mid 90s. Influenza, pneumonia, bronchitis, pulmonary embolism, atypical coronary presentation? He is not on the rate limiting drugs such as beta blockers. Heart rates in the 80s. d-dimer. Is difficult to establish an IV started having lab draw blood. We'll get blood cultures. Dr. Tracy cardiac catheterization from 09/27/19: Severe distal disease of the terminal left anterior descending of a small caliber and not amenable to intervention. Mid left anterior descending artery is widely patent stent. The right coronary artery exhibits a chronic total occlusion within the stented distal part of the vessel and attempts at percutaneous intervention of this vessel today were unsuccessful. Left circumflex artery exhibits mild plaque. Mildly elevated left ventricular end-diastolic pressure. Echocardiogram by Dr. Tracy from 07/2020: EF of 50 this 55% with concentric hypertrophy and mildly increased wall thickness. Akinesis of the apical myocardium. Grade 1 diastolic function. Progress Note #2: Time: 08:15 Progress Note ABG shows hypoxia and CO2 retention or respiratory acidosis. We initiated BiPAP and he is comfortable and his breathing has improved. He felt improvement with the DuoNeb and he is less diminished but still no wheezing heard. An IV was established under ultrasound guidance. ECG Initial ECG Impression Date: Oct 10, 2019 Initial ECG Impression Time: 07:23 Initial ECG Rate: 84 Initial ECG Rhythm: Normal Sinus Initial ECG Intervals: Normal Initial ECG Impression: Normal, Nonspecific Changes Initial ECG Comparisson: Unchanged Comment Mild respiratory artifact noted lateral leads. No ST elevation or depression. Sinus rhythm. Diagnostic Imaging Diagonstic Imaging: Xray Plain Films/CT/US/NM/MRI: chest (1v) Comments NAME: Y[facility] REC#: [id number] PT STATUS: REG ER : 1955 PHYSICIAN: OCTAVIO GRAY MD ADMIT DATE: 10/10/19/ER Draft Date of Exam:10/10/19 CHEST 1 VIEW, AP/PA ONLY INDICATION: Dyspnea and weakness. Upright portable AP view of the chest is obtained with comparison made to study of 09/04/2018. FINDINGS: Overall heart size and pulmonary vascularity are at the upper limits of normal. There is mild increased density in the periphery of the left lung with blunting of the left costophrenic sulcus. No pneumothorax is identified. IMPRESSION: Developing edema and/or pneumonitis in the left lung with possible mild left pleural fluid or thickening. Followup PA and lateral views of the chest would be of use. Dictated on workstation # [id number] Dict: 10/10/19 0845 Trans: 10/10/19 0849 [id number] Interpreted by: MINGO ESPANA MD Electronically signed by: Reviewed: Reviewed by Me Diagonstic Imaging: CT (angiogram) Plain Films/CT/US/NM/MRI: chest Comments [facility] [place] [place] NAME: YVROSE [facility]TT[facility] REC#: [id number] PT STATUS: REG ER : 1955 PHYSICIAN: OCTAVIO GRAY MD ADMIT DATE: 10/10/19/ER Signed Date of Exam:10/10/19 CT ANGIO CHEST W PROCEDURE: CT angiography of the chest with contrast. TECHNIQUE: Multiple contiguous axial images were obtained through the chest after uneventful bolus administration of intravenous contrast. 3D reconstructed CTA MIP acquisitions were also performed. Auto Exposure Controls were utilized during the CT exam to meet ALARA standards for radiation dose reduction. INDICATION: Shortness of breath, cough. COMPARISON: 02/16/2017. FINDINGS: There is mild cardiac enlargement with coronary artery disease. No pericardial effusion is seen. Course and caliber of the pulmonary arteries and aorta are unremarkable. There is no pulmonary embolism. Several reactive mediastinal lymph nodes are present. There is infiltrate and atelectasis in both bases. Focal infiltrates are seen in the left upper lobe, likely pneumonia. Moderate bilateral pleural effusions are seen. There is no pneumothorax. Osseous structures are normal. Visualized upper abdominal solid organs are intact. Cholelithiasis is seen without cholecystitis. IMPRESSION: 1. No pulmonary embolism or acute aortic pathology. 2. Basilar consolidation and infiltrate and left upper lobe infiltrate, likely pneumonia. There is reactive mediastinal lymphadenopathy. Recommend follow-up to assure resolution. 3. Moderate-sized bilateral pleural effusions. 4. Cardiac enlargement with coronary artery disease. 5. Cholelithiasis. Dictated by: Dictated on workstation # [id number] Dict: 10/10/19 1039 Trans: 10/10/19 1100 MK [id number] Interpreted by: GENEVA MCGREGOR Electronically signed by: GENEVA MCGREGOR 10/10/19 1100 Reviewed: Reviewed by Me Departure Communication (Admissions) Time/Spoke to Admitting Phy: 13:20 Discussed the case lab EKG recent cardiac catheterization by Dr. Tracy a week ago and she agrees with trending troponins but she'll contact cardiology if she needs them. She agrees with antibiotic selection for pneumonia. Impression Primary Impression: Pneumonia Qualified Codes: J18.1 - Lobar pneumonia, unspecified organism Additional Impressions: Sepsis Qualified Codes: A41.9 - Sepsis, unspecified organism; R65.20 - Severe sepsis without septic shock; J96.01 - Acute respiratory failure with hypoxia Elevated troponin Disposition: ADMITTED INPATIENT Condition: Stable Admissions Decision to Admit Reason: Admit from ER (General) Decision to Admit/Date: Oct 10, 2019 Time/Decision to Admit Time: 09:00 Departure-Patient Inst. Referrals: [facility]/ (PCP) Primary Care Physician ELIAS DOWNING (Family) Primary Care Physician OCTAVIO GRAY Oct 10, 2019 07:47
[2019-10-10] MEDS ORDERED: ASPIRIN 81 MG CHEW (CHILDREN'S ASA) PO ONE (08:00)
--- NOTE | 2019-10-10 08:05 | NUR ---
PT PLACED ON BIPAP BY RT.
[2019-10-10 08:08] LABS: ABG BASE EXCESS -0.9 MMOL/L (-2.5-2.5); ABG OXYGEN SATURATION 89 % (94-100); ABG PCO2 37 MMHG (35-45); ABG PH 7.41 (7.37-7.43); ABG PO2 54 MMHG (79-93); ABG TCO2 24.7 MMOL/L (21.0-31.0)
[2019-10-10 08:10] LABS: ALLENS TEST YES-POS; INSPIRED O2 2; PATIENT TEMP 35.4; VENTILATOR NO
[2019-10-10 08:19] LABS: BASOPHILS % (AUTO) 0 % (0-10); EOSINOPHILS # (AUTO) 0.4 10^3/uL (0.0-0.3); EOSINOPHILS % (AUTO) 4 % (0-10); HEMATOCRIT 43 % (40-54); HEMOGLOBIN 14.3 G/DL (13.3-17.7); LYMPHOCYTES # (AUTO) 1.7 X 10^3 (1.0-4.0); LYMPHOCYTES % (AUTO) 17 % (12-44); MEAN CORPUSCULAR HEMOGLOBIN 28 PG (25-34); MEAN CORPUSCULAR HGB CONC 33 G/DL (32-36); MEAN CORPUSCULAR VOLUME 84 FL (80-99); MEAN PLATELET VOLUME 9.7 FL (7.4-10.4); MONOCYTES # (AUTO) 0.5 X 10^3 (0.0-1.0); MONOCYTES % (AUTO) 4 % (0-12); NEUTROPHILS # (AUTO) 7.5 X 10^3 (1.8-7.8); NEUTROPHILS % (AUTO) 74 % (42-75); PLATELET COUNT 369 10^3/uL (130-400); RED CELL DISTRIBUTION WIDTH 13.9 % (10.0-14.5); WHITE BLOOD COUNT 10.2 10^3/uL (4.3-11.0)
[2019-10-10 08:29] LABS: PROTHROMBIN TIME PATIENT 13.5 SEC (12.2-14.7)
[2019-10-10 08:38] LABS: ALANINE AMINOTRANSFERASE 27 U/L (0-55); ALBUMIN 4.2 GM/DL (3.2-4.5); ALKALINE PHOSPHATASE 33 U/L (40-136); BILIRUBIN,TOTAL 0.8 MG/DL (0.1-1.0); BUN/CREATININE RATIO 11; CALCIUM 9.4 MG/DL (8.5-10.1); CARBON DIOXIDE 23 MMOL/L (21-32); CHLORIDE 105 MMOL/L (98-107); CREATININE SERUM 1.16 MG/DL (0.60-1.30); GFR ESTIMATED > 60; GLUCOSE 174 MG/DL (70-105); MAGNESIUM 1.9 MG/DL (1.6-2.4); POTASSIUM 4.1 MMOL/L (3.6-5.0); SODIUM 139 MMOL/L (135-145); TOTAL PROTEIN 7.6 GM/DL (6.4-8.2)
--- NOTE | 2019-10-10 08:49 | Diagnostic Imaging Report ---
INDICATION: Dyspnea and weakness. Upright portable AP view of the chest is obtained with comparison made to study of 09/04/2018. FINDINGS: Overall heart size and pulmonary vascularity are at the upper limits of normal. There is mild increased density in the periphery of the left lung with blunting of the left costophrenic sulcus. No pneumothorax is identified. IMPRESSION: Developing edema and/or pneumonitis in the left lung with possible mild left pleural fluid or thickening. Followup PA and lateral views of the chest would be of use. Dictated by: Dictated on workstation # [id number]
[2019-10-10] MEDS ORDERED: IOHEXOL 350 MG/ML 100 ML (OMNIPAQUE 350) VIAL IV ONE (09:15)
[2019-10-10] MEDS ORDERED: NS 100 ML (IVPB) BAG IV ONE (09:15)
[2019-10-10] MEDS ORDERED: HOLD METFORMIN - RECEIVED CONTRAST 20 ML VIAL IV SCH (09:15)
[2019-10-10] MEDS ORDERED: AZITHROMYCIN INJECTION 500 MG in NS (IVPB) 250 ML IV ONE (09:15)
[2019-10-10] MEDS ORDERED: cefTRIAXone FOR IV USE 1,000 MG in WATER (STERILE) FOR INJECTION 10 ML IV ONE (09:15)
--- NOTE | 2019-10-10 10:46 | Diagnostic Imaging Report ---
PROCEDURE: CT angiography of the chest with contrast. TECHNIQUE: Multiple contiguous axial images were obtained through the chest after uneventful bolus administration of intravenous contrast. 3D reconstructed CTA MIP acquisitions were also performed. Auto Exposure Controls were utilized during the CT exam to meet ALARA standards for radiation dose reduction. INDICATION: Shortness of breath, cough. COMPARISON: 02/16/2017. FINDINGS: There is mild cardiac enlargement with coronary artery disease. No pericardial effusion is seen. Course and caliber of the pulmonary arteries and aorta are unremarkable. There is no pulmonary embolism. Several reactive mediastinal lymph nodes are present. There is infiltrate and atelectasis in both bases. Focal infiltrates are seen in the left upper lobe, likely pneumonia. Moderate bilateral pleural effusions are seen. There is no pneumothorax. Osseous structures are normal. Visualized upper abdominal solid organs are intact. Cholelithiasis is seen without cholecystitis. IMPRESSION: 1. No pulmonary embolism or acute aortic pathology. 2. Basilar consolidation and infiltrate and left upper lobe infiltrate, likely pneumonia. There is reactive mediastinal lymphadenopathy. Recommend follow-up to assure resolution. 3. Moderate-sized bilateral pleural effusions. 4. Cardiac enlargement with coronary artery disease. 5. Cholelithiasis. Dictated by: Dictated on workstation # [id number]
--- NOTE | 2019-10-10 12:34 | NUR ---
PT CONTINUES TO REST IN BED. NOTFIIED OF BUSY ER ET THAT WAS WITH OTHER PT
[2019-10-10] MEDS ORDERED: LORazepam INJ 2 MG/ML (ATIVAN) VIAL IVP ONE (13:30)
[2019-10-10 14:15] VITALS: BP 160/88
[2019-10-10] MEDS ORDERED: NS IV 1000 ML 1,000 ML ONE (14:41)
[2019-10-10] MEDS ORDERED: NITROGLYCERIN 0.4 MG SL TABS BTL 25'S SL PRN (15:15)
[2019-10-10] MEDS ORDERED: morphine INJ 4 MG/ML 1 ML (VIAL/SYRINGE) IVP PRN (15:15)
[2019-10-10] MEDS ORDERED: NS IV 1000 ML 1,000 ML IV SCH (15:15)
[2019-10-10] MEDS ORDERED: ONDANSETRON 4 MG/2 ML (SDV) Z0FRAN IVP PRN (15:15)
[2019-10-10 15:51] LABS: BASOPHILS % (AUTO) 0 % (0-10); EOSINOPHILS # (AUTO) 0.4 10^3/uL (0.0-0.3); EOSINOPHILS % (AUTO) 4 % (0-10); HEMATOCRIT 40 % (40-54); HEMOGLOBIN 13.5 G/DL (13.3-17.7); LYMPHOCYTES % (AUTO) 20 % (12-44); MEAN CORPUSCULAR HEMOGLOBIN 28 PG (25-34); MEAN CORPUSCULAR HGB CONC 34 G/DL (32-36); MEAN CORPUSCULAR VOLUME 85 FL (80-99); MEAN PLATELET VOLUME 9.8 FL (7.4-10.4); MONOCYTES # (AUTO) 0.6 X 10^3 (0.0-1.0); MONOCYTES % (AUTO) 6 % (0-12); NEUTROPHILS % (AUTO) 70 % (42-75); PLATELET COUNT 278 10^3/uL (130-400); RED CELL DISTRIBUTION WIDTH 13.9 % (10.0-14.5)
[2019-10-10 16:12] LABS: ALANINE AMINOTRANSFERASE 24 U/L (0-55); ALBUMIN 3.8 GM/DL (3.2-4.5); ALKALINE PHOSPHATASE 29 U/L (40-136); BILIRUBIN,TOTAL 0.7 MG/DL (0.1-1.0); BUN/CREATININE RATIO 12; CARBON DIOXIDE 22 MMOL/L (21-32); CHLORIDE 107 MMOL/L (98-107); CREATININE SERUM 0.92 MG/DL (0.60-1.30); GFR ESTIMATED > 60; GLUCOSE 128 MG/DL (70-105); POTASSIUM 4.1 MMOL/L (3.6-5.0); SODIUM 140 MMOL/L (135-145); TOTAL PROTEIN 6.8 GM/DL (6.4-8.2)
--- NOTE | 2019-10-10 16:21 | History & Physical ---
BLADIMIR MO,MED STUDENT 10/10/19 1621: HPI History of Present Illness: Mickey Contreras is a 64 year old male who presented to the ED on 10/10/19 complaining of worsening orthopnea and dyspnea. He states this has been going on for a week, but worsened last night to the point where he could not sleep. He has an extensive cardiac history, and had a heart cath [address] Tracy. Source: patient Exam Limitations: no limitations Date seen by provider: Oct 10, 2019 Time Seen by Provider: 03:50 Attending Physician Cherelle Black MD PCP [facility] Consult Date of Admission Oct 10, 2019 at 13:35 Home Medications Home Medications Reviewed patient Home Medication Reconciliation performed by pharmacy medication reconciliations military technician and/or nursing. Patients Allergies have been reviewed. Allergies Coded Allergies: carvedilol (Unverified Allergy, Unknown, 01/22/10) codeine (Unverified Allergy, Unknown, PATIENT HAS RECEIVED MORPHINE WITHOUT ISSUE, 06/08/15) LFG-[id number]-Ogssvc Hx Patient Social History Marrital Status: Alcohol Use: Denies Use Recreational Drug Use: No Smoking Status: Never a Smoker 2nd Hand Smoke Exposure: No Recent Foreign Travel: No Contact w/other who traveled: No Recent Hopitalizations: No Recent Infectious Disease Expo: No Immunizations Up To Date Tetanus Booster (TDap): More than 5yrs Date of Pneumonia Vaccine: Apr 14, 2014 Date of Influenza Vaccine: May 08, 2015 Past Medical History Diastolic dysfunction with EF of 50-55%, per echo 07/2019 Multiple stents ID Neuropathy Esophageal Ulcers Arthritis Diabetes Mellitus, insulin dependent Anxiety Family Medical History Significant Family History: No Pertinent Family Hx, Heart Disease (mother, maternal grandfather), Cancer (mother-lung, father-esophageal), Diabetes (paternal grandmother), Stroke (father) Family History: Alcoholism 19 FATHER Cancer 19 FATHER 19 MOTHER Chest pain 19 MOTHER Family history: Arthritis (grandmother) G8 SISTER Family history: Cardiovascular disease 19 MOTHER Family history: Diabetes mellitus G8 SISTER Family history: Hypertension 19 FATHER 19 MOTHER Hearing loss 19 FATHER Heart disease 19 MOTHER Malignant neoplasm of lung 19 MOTHER Myocardial infarction 19 MOTHER Stroke 19 FATHER Review of Systems ([facility]) Constitutional: No chills; dizziness; No fever; malaise, weakness; No weight gain, No weight loss EENTM: hearing loss, vision loss (past 6 months); No ear pain, No eye pain Respiratory: No cough; dyspnea on exertion; No hemoptysis; orthopnea, wheezing Cardiovascular: chest pain (pressure), edema, Hx of Intervention Gastrointestinal: No abdominal pain, No constipation, No diarrhea, No d ysphagia; nausea; No vomiting Genitourinary: No dysuria, No frequency Musculoskeletal: joint pain, joint swelling; No muscle pain, No muscle stiffness Skin: No lesions, No rash Psychiatric/Neurological: Anxiety; Denies Depressed Other Hematologic: on blood thinners, reports easy bruising, denies easy bleeding Reviewed Test Results Reviewed Test Results Radiology CT ANGIO CHEST W PROCEDURE: CT angiography of the chest with contrast. TECHNIQUE: Multiple contiguous axial images were obtained through the chest after uneventful bolus administration of intravenous contrast. 3D reconstructed CTA MIP acquisitions were also performed. Auto Exposure Controls were utilized during the CT exam to meet ALARA standards for radiation dose reduction. INDICATION: Shortness of breath, cough. COMPARISON: 02/16/2017. FINDINGS: There is mild cardiac enlargement with coronary artery disease. No pericardial effusion is seen. Course and caliber of the pulmonary arteries and aorta are unremarkable. There is no pulmonary embolism. Several reactive mediastinal lymph nodes are present. There is infiltrate and atelectasis in both bases. Focal infiltrates are seen in the left upper lobe, likely pneumonia. Moderate bilateral pleural effusions are seen. There is no pneumothorax. Osseous structures are normal. Visualized upper abdominal solid organs are intact. Cholelithiasis is seen without cholecystitis. IMPRESSION: 1. No pulmonary embolism or acute aortic pathology. 2. Basilar consolidation and infiltrate and left upper lobe infiltrate, likely pneumonia. There is reactive mediastinal lymphadenopathy. Recommend follow-up to assure resolution. 3. Moderate-sized bilateral pleural effusions. 4. Cardiac enlargement with coronary artery disease. 5. Cholelithiasis. Physical Exam-([facility]) Physical Exam Vital Signs VS - Last 72 Hours, by Label 10/10/19 10/10/19 10/10/19 10/10/19 07:19 07:45 07:59 14:15 Temp 35.4 Pulse 85 84 82 Resp 16 28 14 B/P (MAP) 180/95 (123) 160/88 (112) Pulse Ox 89 94 95 97 O2 Delivery Room Air Nasal Cannula NIV Bilevel O2 Flow Rate 2.00 40.00 30.00 10/10/19 10/10/19 10/10/19 14:21 14:36 16:00 Pulse 81 84 87 Resp 25 24 B/P (MAP) Pulse Ox 95 94 O2 Delivery NIV Bilevel O2 Flow Rate 30.00 30.00 Capillary Refill : Less Than 3 Seconds General Appearance: WD/WN, no apparent distress Eyes: Bilateral Eye PERRL, Bilateral Eye EOMI HEENT: No scleral icterus (R), No scleral icterus (L), No pharyngeal erythema, No tonsillar exudate Neck: non-tender, supple; No lymphadenopathy (R), No lymphadenopathy (L) Respiratory: decreased breath sounds Cardiovascular: regular rate, rhythm, no murmur Peripheral Pulses: 2+ Dorsalis Pedis (R), 2+ Left Dors-Pedis (L), 2+ Radial Pulses (R), 2+ Radial Pulses (L) Gastrointestinal: non tender, soft; No distended Extremities: no pedal edema, no calf tenderness, normal capillary refill Neurologic/Psychiatric: alert, normal mood/affect, oriented x 3 Skin: normal color, warm/dry Assessment/Plan Assessment/Plan Assessment & Plan Assessment: -Pneumonia with acute respiratory failure -Hypertension -NSTEMI, elevated troponins -CHF exacerbation, with elevated BNP Plan: Azithromycin/Ceftriaxone Lasix Cardiology consult Clinical Quality Measures DVT/VTE Risk/Contraindication: Risk Factor Score Per Nursin RFS Level Per Nursing on Admit: 4+=Very High CHERLELE BLACK MD 10/10/19 2128: HPI History of Present Illness: Time Seen by Provider: 18:00 Home Medications Allergies Coded Allergies: carvedilol (Unverified Allergy, Unknown, 01/22/10) codeine (Unverified Allergy, Unknown, PATIENT HAS RECEIVED MORPHINE WITHOUT ISSUE, 06/08/15) [id number]-Eiyvnq Hx Family Medical History Family History: Alcoholism 19 FATHER Cancer 19 FATHER 19 MOTHER Chest pain 19 MOTHER Family history: Arthritis (grandmother) G8 SISTER Family history: Cardiovascular disease 19 MOTHER Family history: Diabetes mellitus G8 SISTER Family history: Hypertension 19 FATHER 19 MOTHER Hearing loss 19 FATHER Heart disease 19 MOTHER Malignant neoplasm of lung 19 MOTHER Myocardial infarction 19 MOTHER Stroke 19 FATHER Physical Exam-([facility]) Physical Exam General Appearance: WD/WN, no apparent distress Respiratory: decreased breath sounds Cardiovascular: regular rate, rhythm, no murmur Gastrointestinal: non tender, soft Extremities: no pedal edema Neurologic/Psychiatric: alert, normal mood/affect Skin: normal color, warm/dry Assessment/Plan Assessment/Plan Admission Status: Inpatient Order (span 2 midnights) Reason for Inpatient Admission: Pneumonia with CHF exacerbation (1) Pneumonia Status: Acute Assessment & Plan: Ceftriaxone and azithromycin. Qualifiers: Qualified Codes: J18.1 - Lobar pneumonia, unspecified organism (2) CHF exacerbation Status: Acute Assessment & Plan: Echo 07/2019 with EF of 50-55% with concentric hypertrophy and mildly increased wall thickness. Akinesis of the apical myocardium. Grade 1 diastolic function. BNP over 700. Lasix given in ER. Consult Cardiology in the morning, hold IVF. Qualifiers: Qualified Codes: I50.33 - Acute on chronic diastolic (congestive) heart failure (3) Elevated troponin Status: Acute Assessment & Plan: Minimal and stable, suspect related to respiratory issues, monitor, Cardiology consult. (4) Coronary artery disease Status: Acute Assessment & Plan: Chronic occlusions noted on cath recently, continue aspirin and plavix. Qualifiers: (5) HTN (hypertension) Status: Acute Assessment & Plan: Resume home medications (6) IDDM (insulin dependent diabetes mellitus) Status: Acute Assessment & Plan: Sliding scale insulin (7) Hyperlipidemia (8) DVT prophylaxis Assessment & Plan: Enoxaparin Supervisory-Addendum Brief Verification & Attestation Participated in pt care: history, MDM, physical Personally performed: exam, history, MDM Care discussed with: Medical Student Procedures: n/a Verification and Attestation of Medical Student E/M Service A medical student performed this service in my presence. I reviewed and verified all information documented by the medical student and made modifications to such information, when appropriate. I personally performed the physical exam and medical decision making. Cherelle Black, Oct 10, 2019,21:36 BLADIMIR MO,MED STUDENT Oct 10, 2019 16:21 CHERELLE BLACK MD Oct 10, 2019 21:28
[2019-10-10] MEDS: inSUlin ASPART (NovoLOG) 1 UNIT/0.01 ML (CHARGE PER UNIT) SC SCH ×3 (16:34→20:17)
[2019-10-10] MEDS ORDERED: MTP100TCR PO (17:35)
[2019-10-10] MEDS ORDERED: ASPI-983 PO (17:35)
[2019-10-10] MEDS ORDERED: PRAV20TA3 PO (17:35)
[2019-10-10] MEDS ORDERED: GLIP5TAB13 PO (17:35)
--- NOTE | 2019-10-10 17:37 | NUR ---
SPOKE WITH THE PATIENT ABOUT HIS MEDICATIONS. HE HAD HIS BOTTLES WITH HIM AND VERIFIED HOW HE TAKES THEM. HIS BOTTLES APPEAR TO BE FROM THE REPOSITORY AND ARE FOLLOWS: 09-29-19 METOPROLOL XL 100MG DAILY #90 (STATES HE NOW TAKES 2 TABS DAILY) 09-29-19 CELEBREX 200MG BID #90 09-29-19 AMLODIPINE 10MG DAILY #90 09-29-19 GLIPIZIDE 5MG DAILY #90 (HAS NOT STARTED YET, WANTS TO TALK TO DR. PERSAUD) 09-29-19 CLONIDINE 0.1MG BID #180 09-29-19 PLAVIX 75MG DAILY #90 09-29-19 LIPITOR 10MG 1/2 DAILY #90 (DR. 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 HE ADMITS HE IS OUT BUT WILL BE GETTING IT REFILLED SOON SINCE HE GOT PAID) OTC MEDS: FISH OIL DAILY ASPIRIN 81MG DAILY HE RECEIVES HIS TRESIBA AND NOVOLOG THROUGH PALS AND HAS THEM WITH HIM.
[2019-10-10 18:55] VITALS: BP 160/88
[2019-10-10] MEDS ORDERED: RT-ALBUTEROL SULF 2.5 MG/3 ML PRE-MIX VIAL INH PRN (19:15)
[2019-10-10 19:20] VITALS: BP 158/77
[2019-10-10] MEDS ORDERED: hydrOXYzine (VISTARIL/ATARAX) 25 MG capsule/tablet PO PRN (20:30)
[2019-10-10] MEDS: RT-ALBUTEROL SULF 2.5 MG/3 ML PRE-MIX VIAL INH SCH (20:56)
[2019-10-10] MEDS: ENOXAPARIN 40 MG/0.4 ML (LOVENOX) SYR SQ SCH (21:00)
[2019-10-10] MEDS ORDERED: NON-FORMULARY MEDICATION 1 EA EA (Gabapentin 800 MG) PO SCH (21:00)
[2019-10-10] MEDS: SIMvastatin 10 MG (ZOCOR) TAB PO SCH (21:00)
[2019-10-10] MEDS: cloNIDine 0.1 MG (CATAPRES) TAB PO SCH (21:00)
[2019-10-10] MEDS: CELECOXIB 100 MG (CeleBREX) CAP PO SCH (21:01)
[2019-10-10] MEDS ORDERED: cefTRIAXone FOR IV USE 1,000 MG in WATER (STERILE) FOR INJECTION 10 ML IV SCH (21:45)
[2019-10-10 23:35] VITALS: BP 132/73
[2019-10-11] VITALS (7 sets, daily range): BP systolic 133–160; BP diastolic 65–83
[2019-10-11] MEDS: RT-ALBUTEROL SULF 2.5 MG/3 ML PRE-MIX VIAL INH SCH ×6 (03:04→21:19)
[2019-10-11 03:58] LABS: HEMOGLOBIN 12.9 G/DL (13.3-17.7); MEAN PLATELET VOLUME 9.7 FL (7.4-10.4); WHITE BLOOD COUNT 9.1 10^3/uL (4.3-11.0)
[2019-10-11 04:19] LABS: BUN/CREATININE RATIO 11; CALCIUM 9.1 MG/DL (8.5-10.1); CARBON DIOXIDE 21 MMOL/L (21-32); CHLORIDE 107 MMOL/L (98-107); CHOLESTEROL 164 MG/DL (< 200); GFR ESTIMATED > 60; GLUCOSE 145 MG/DL (70-105); HDL CHOLESTEROL 27 MG/DL (40-60); POTASSIUM 4.1 MMOL/L (3.6-5.0); SODIUM 139 MMOL/L (135-145); TRIGLYCERIDES 169 MG/DL (<150); VLDL CHOLESTEROL 34 MG/DL (5-40)
[2019-10-11] MEDS ORDERED: FUROSEMIDE 40 MG/4 ML INJ (LASIX) ONE ×2 (04:29→04:44)
--- NOTE | 2019-10-11 05:02 | NUR ---
IV Lasix non admin d/t pulled from [facility] on wrong patient. Dose was intended for ICU room 6. Lasix returned to the [facility].
[2019-10-11] MEDS: inSUlin ASPART (NovoLOG) 1 UNIT/0.01 ML (CHARGE PER UNIT) SC SCH ×7 (05:04→20:32)
--- NOTE | 2019-10-11 08:08 | Consultation-Cardiology ---
HPI-Cardiology Cardiology Consultation: Date of Consultation 10/11/19 Time Seen by a Provider: 10:15 Date of Admission 10-10-2019 Attending Physician Cherelle Black MD Admitting Physician [place] Consulting Physician Emani Tracy MD HPI: Chief Complaint: SOB Mr. Gillette is a 64 year old male admitted to ICU 4 from the ED with c/o increasing SOB, chills and occ cough. No c/o CP, palpitations, syncope, near syncope or LE swelling. He does not report any n/v/d. He states he is feeling better this morning. Review of Systems-Cardiology Review of Systems Constitutional: chills; No fever; malaise Eyes: No vision change Ears/Nose/Throat: No epistaxis, No recent hearing loss Respiratory: As described under HPI Cardiovascular: As described under HPI Gastrointestinal: No constipation, No diarrhea, No nausea, No vomiting Genitourinary: No dysuria Musculoskeletal: other (chronic joint pain) Skin: No rash on exposed areas, No ulcerations on exposed areas Psychiatric/Neurological: anxiety; No seizure, No focal weakness, No syncope Hematologic: No bleeding abnormalities All Other Systems Reviewed Negative Unless Noted: Yes IGN-Eedywq-Hbbnti Hx Patient Social History Marrital Status: Alcohol Use: Denies Use Recreational Drug Use: No Smoking Status: Never a Smoker 2nd Hand Smoke Exposure: No Recent Foreign Travel: No Recent Infectious Disease Expo: No Immunizations Up To Date Tetanus Booster (TDap): More than 5yrs Date of Pneumonia Vaccine: Apr 14, 2014 Date of Influenza Vaccine: May 08, 2015 Past Medical History PMH As described under Assessment. Family Medical History Family Medical History: He reports his mother had CAD and HTN. He reports his father had HTN and a CVA. Family History: Alcoholism 19 FATHER Cancer 19 FATHER 19 MOTHER Chest pain 19 MOTHER Family history: Arthritis (grandmother) G8 SISTER Family history: Cardiovascular disease 19 MOTHER Family history: Diabetes mellitus G8 SISTER Family history: Hypertension 19 FATHER 19 MOTHER Hearing loss 19 FATHER Heart disease 19 MOTHER Malignant neoplasm of lung 19 MOTHER Myocardial infarction 19 MOTHER Stroke 19 FATHER Allergies and Home Medications Allergies Coded Allergies: carvedilol (Unverified Allergy, Unknown, 01/22/10) codeine (Unverified Allergy, Unknown, PATIENT HAS RECEIVED MORPHINE WITHOUT ISSUE, 06/08/15) Home Medications Amlodipine Besylate 10 Mg Tablet, 10 MG PO DAILY, (Reported) Aspirin 81 Mg Tablet.dr, 81 MG PO DAILY, (Reported) Celecoxib 200 Mg Capsule, 200 MG PO BID, (Reported) Clonidine HCl 0.1 Mg Tablet, 0.1 MG PO BID, (Reported) Clopidogrel Bisulfate 75 Mg Tablet, 75 MG PO DAILY, (Reported) Fish Oil/Dha/Epa 1 Each Capsule, 1,200 MG PO DAILY, (Reported) Gabapentin 800 Mg Tablet, 800 MG PO TID, (Reported) LAST FILLED #90 07-20-19 Glipizide 5 Mg Tablet, 5 MG PO DAILY, (Reported) HAS NOT STARTED YET Insulin Aspart 100 Unit/1 Ml Susp, 28 UNIT SQ TIDAC, (Reported) Insulin Degludec 100 Unit/1 Ml Insuln.pen, 100 UNIT SQ HS, (Reported) Metoprolol Succinate 100 Mg Tab.er.24h, 200 MG PO DAILY, (Reported) Pantoprazole Sodium 40 Mg Tablet.dr, 40 MG PO DAILY, (Reported) Pravastatin Sodium 20 Mg Tablet, 20 MG PO HS, (Reported) HAS NOT PICKED UP YET Patient Home Medication List Home Medication List Reviewed: Yes Physical Exam-Cardiology Physical Exam Vital Signs/I&O 10/12/19 10/13/19 10/13/19 10/13/19 23:28 00:31 01:00 02:06 Temp 36.6 Pulse 86 70 Resp 20 B/P (MAP) 123/59 (80) Pulse Ox 98 97 97 O2 Delivery Nasal Cannula Nasal Cannula Nasal Cannula O2 Flow Rate 3.00 4.00 3.00 10/13/19 10/13/19 10/13/19 10/13/19 02:36 04:00 07:00 07:38 Temp 36.3 Pulse 75 73 Resp 21 B/P (MAP) 145/89 (107) Pulse Ox 95 98 97 O2 Delivery Nasal Cannula Nasal Cannula Nasal Cannula O2 Flow Rate 3.00 4.00 3.00 10/13/19 10/13/19 10/13/19 08:12 09:00 10:02 Temp 36.4 Pulse 79 Resp 18 B/P (MAP) 122/55 (77) Pulse Ox 97 97 97 O2 Delivery Nasal Cannula Nasal Cannula Nasal Cannula O2 Flow Rate 1.00 1.00 1.00 10/13/19 00:00 Intake Total 420 ml Balance 420 ml Capillary Refill : Less Than 3 Seconds Constitutional: AAO x 3, well-developed, well-nourished HEENT: PERRL, hearing is well preserved Neck: No carotid bruit; carotid pulses are 2 + bilaterally Respiratory: chest expansion is symmetric, chest is bilaterally symmetric, rhonchi (scattered), other (fair air entry) Cardiovascular: No JVD; S1 and S2 Gastrointestinal: No tender; soft, round, audible bowel sounds Extremities: no lower extremity edema bilateral Neurologic/Psychiatric: grossly intact (moves all extremities) Skin: No rash on exposed areas, No ulcerations on exposed areas Data Review Labs Laboratory Tests 10/12/19 11:24: Glucometer 137H 10/12/19 15:51: Glucometer 125H 10/12/19 20:19: Glucometer 143H 10/13/19 05:18: Glucometer 311H 10/13/19 05:52: White Blood Count 9.5, Red Blood Count 4.26L, Hemoglobin 12.0L, Hematocrit 37L, Mean Corpuscular Volume 86, Mean Corpuscular Hemoglobin 28, Mean Corpuscular Hemoglobin Concent 33, Red Cell Distribution Width 13.5, Platelet Count 302, M paris Platelet Volume 10.0, Sodium Level 139, Potassium Level 4.6, Chloride Level 105, Carbon Dioxide Level 22, Anion Gap 12, Blood Urea Nitrogen 18, Creatinine 1.24, Estimat Glomerular Filtration Rate 59, BUN/Creatinine Ratio 15, Glucose Level 279H, Calcium Level 9.2 Microbiology 10/10/19 Blood Culture - Preliminary, Resulted No growth 10/10/19 Influenza Types A,B Antigen ([facility]) - Final, Complete Radiology NAME: YVROSE GILLETTE [facility] REC#: [id number] PT STATUS: ADM IN : 1955 PHYSICIAN: CHERELLE BLACK MD ADMIT DATE: 10/10/19/ICU Signed Date of Exam:10/11/19 CHEST 1 VIEW, AP/PA ONLY EXAMINATION: Chest radiograph, portable AP view. DATE: 10/11/2019 4:53 AM hours. INDICATION: 64-year-old male, sepsis. Pneumonia. COMPARISON: October 10, 2019 FINDINGS: Heart size and mediastinal contours are unchanged. There is no identified pneumothorax. There is mild blunting of the right and left lateral costophrenic angles which may relate to small effusions. There are mild streaky opacities in the lung bases which likely relate to atelectasis. There is subtle opacification in the left upper lobe likely relating to pneumonia or other alveolar consolidative process. IMPRESSION: 1. Subtle opacities in the left upper lobe likely relating to pneumonia or other alveolar consolidative process. 2. Small bilateral pleural effusions and atelectasis in the lower lobes. Dictated by: Dictated on workstation # [id number] Dict: 10/11/19 0702 Trans: 10/11/19 0858 FLORIAN [id number] Interpreted by: KATHY PEARL MD Electronically signed by: KATHY PEARL MD 10/11/19 0858 ECG Impression ECG Initial ECG Rhythm: Normal Sinus A/P-Cardiology Assessment/Admission Diagnosis Pneumonia - management per medical services Mildly elevated troponin likely secondary to transient hypoxia CAD - Last card cath on 09/27/19: Coronary artery disease consisting of severe distal disease of the terminal left anterior descending where the vessel is of a very small caliber and not amenable to intervention. The mid left anterior descending artery has a widely patent stented segment (known to be overlapping Promus 3.0 x 12 and 2.25 x 16 mm stents, the overlap of which has been treated with a 3 mm balloon). The right coronary artery exhibits a chronic total occlusion within the stented distal part of the vessel and attempts at percutane ous intervention to this vessel today were unsuccessful. The left circumflex artery exhibits mild plaque. Mildly elevated left ventricular end-diastolic pressure. Labile hypertension - currently not well controlled Low TSH in Jul 2015, being followed by his pcp H/o PUD, based on endoscopy of 06/08/[address] Minaya that showed multiple gastric and duodenal ulcers. Anxiety Echo of 02/17/17: showed LVEF 55-65%, mildly dilated LA, hypokinesis of apical myocardium Maturity onset diabetes mellitus, being managed by Dr. Umanzor. Hyperlipidemia - intolerant to statin (muscle discomfort) Diagnosed with SLE by his pcp in early 2017 (managed by pcp) Gout. Carotid arterial disease. CTA of carotids on 09/20/15 showed 50% prox R ICA and less than 50% L ICA bulb stenoses. Mild carotid art disease on carotid u/s of 10/17/16 Peripheral arterial disease. S/p bilateral leg artery interventions by Dr Layton in Jul and Aug 2014. No leg claudication since Multiple rib fractures per report of November 2016 d/t a non-syncopal fall Discussion and Recomendations Management of pneumonia is per medical services BP not well controlled - continue home dose of antihypertensives and adjust as indicate Continue antiplatelet tx with ASA and Plavix d/t known h/o CAD Minimal troponin elevation likely secondary to hypoxia Monitor lab closely Replace electrolytes Further recs will be based on his hospital course We would like to thank medical services for this consult Clinical Quality Measures DVT/VTE Risk/Contraindication: Risk Factor Score Per Nursin RFS Level Per Nursing on Admit: 4+=Very High BLADIMIR MCLAIN Oct 11, 2019 08:08
[2019-10-11] MEDS: meTOprolol SUCCINATE 100 MG (TOPROL XL) TAB PO SCH (08:25)
[2019-10-11] MEDS: amLODIPine 10 MG (NORVASC) TAB PO SCH (08:25)
[2019-10-11] MEDS: cloNIDine 0.1 MG (CATAPRES) TAB PO SCH ×2 (08:26→20:31)
[2019-10-11] MEDS: ASPIRIN E.C. 81 MG (ECOTRIN) TAB PO SCH (08:26)
[2019-10-11] MEDS: CLOPIDOGREL 75 MG (PLAVIX) TABLET PO SCH (08:26)
[2019-10-11] MEDS: PANTOPRAZOLE 40 MG (PROTONIX) TAB PO SCH (08:27)
[2019-10-11] MEDS: cefTRIAXone FOR IV USE 1,000 MG in WATER (STERILE) FOR INJECTION 10 ML IV SCH (08:33)
--- NOTE | 2019-10-11 08:33 | Diagnostic Imaging Report ---
EXAMINATION: Chest radiograph, portable AP view. DATE: 10/11/2019 4:53 AM hours. INDICATION: 64-year-old male, sepsis. Pneumonia. COMPARISON: October 10, 2019 FINDINGS: Heart size and mediastinal contours are unchanged. There is no identified pneumothorax. There is mild blunting of the right and left lateral costophrenic angles which may relate to small effusions. There are mild streaky opacities in the lung bases which likely relate to atelectasis. There is subtle opacification in the left upper lobe likely relating to pneumonia or other alveolar consolidative process. IMPRESSION: 1. Subtle opacities in the left upper lobe likely relating to pneumonia or other alveolar consolidative process. 2. Small bilateral pleural effusions and atelectasis in the lower lobes. Dictated by: Dictated on workstation # [id number]
[2019-10-11] MEDS: CELECOXIB 100 MG (CeleBREX) CAP PO SCH ×2 (08:48→20:31)
[2019-10-11] MEDS: GABAPENTIN 400 MG (NEURONTIN) CAP PO SCH ×3 (08:49→20:31)
[2019-10-11] MEDS ORDERED: PANTOPRAZOLE 40 MG (PROTONIX) TAB PO SCH (09:00)
--- NOTE | 2019-10-11 13:54 | Consultation-Cardiology ---
HPI-Cardiology Cardiology Consultation: Date of Consultation 10/11/19 Time Seen by a Provider: 11:45 Date of Admission Attending Physician Martina Diallo MD Admitting Physician [place] [place] Consulting Physician RANJAN CABRERA MD, MA, FACP, FACC, FSCAI, CCDS HPI: Chief Complaint: CC: Shortness of breath HPI Mr. Contreras is a 64 year old male admitted to ICU 4 from the ED with c/o increasing SOB, chills and occ cough. No c/o CP, palpitations, syncope, near syncope or LE swelling. He does not report any n/v/d. He states he is feeling better this morning. Review of Systems-Cardiology Review of Systems Constitutional: chills; No fever; malaise Eyes: No vision change Ears/Nose/Throat: No epistaxis, No recent hearing loss Respiratory: As described under HPI Cardiovascular: As described under HPI Gastrointestinal: No constipation, No diarrhea, No nausea, No vomiting Genitourinary: No dysuria Musculoskeletal: other (chronic joint pain) Skin: No rash on exposed areas, No ulcerations on exposed areas Psychiatric/Neurological: anxiety; No seizure, No focal weakness, No syncope Hematologic: No bleeding abnormalities All Other Systems Reviewed Negative Unless Noted: Yes [id number] Hx Patient Social History Marrital Status: Alcohol Use: Denies Use Recreational Drug Use: No Smoking Status: Never a Smoker 2nd Hand Smoke Exposure: No Recent Foreign Travel: No Recent Infectious Disease Expo: No Immunizations Up To Date Tetanus Booster (TDap): More than 5yrs Date of Pneumonia Vaccine: Apr 14, 2014 Date of Influenza Vaccine: May 08, 2015 Past Medical History PMH As described under Assessment. Family Medical History Family Medical History: He reports his mother had CAD and HTN. He reports his father had HTN and a CVA. Family History: Alcoholism 19 FATHER Cancer 19 FATHER 19 MOTHER Chest pain 19 MOTHER Family history: Arthritis (grandmother) G8 SISTER Family history: Cardiovascular disease 19 MOTHER Family history: Diabetes mellitus G8 SISTER Family history: Hypertension 19 FATHER 19 MOTHER Hearing loss 19 FATHER Heart disease 19 MOTHER Malignant neoplasm of lung 19 MOTHER Myocardial infarction 19 MOTHER Stroke 19 FATHER Allergies and Home Medications Allergies Coded Allergies: carvedilol (Unverified Allergy, Unknown, 01/22/10) codeine (Unverified Allergy, Unknown, PATIENT HAS RECEIVED MORPHINE WITHOUT ISSUE, 06/08/15) Home Medications Amlodipine Besylate 10 Mg Tablet, 10 MG PO DAILY, (Reported) Aspirin 81 Mg Tablet.dr, 81 MG PO DAILY, (Reported) Celecoxib 200 Mg Capsule, 200 MG PO BID, (Reported) Clonidine HCl 0.1 Mg Tablet, 0.1 MG PO BID, (Reported) Clopidogrel Bisulfate 75 Mg Tablet, 75 MG PO DAILY, (Reported) Fish Oil/Dha/Epa 1 Each Capsule, 1,200 MG PO DAILY, (Reported) Gabapentin 800 Mg Tablet, 800 MG PO TID, (Reported) LAST FILLED #90 07-20-19 Glipizide 5 Mg Tablet, 5 MG PO DAILY, (Reported) HAS NOT STARTED YET Insulin Aspart 100 Unit/1 Ml Susp, 28 UNIT SQ TIDAC, (Reported) Insulin Degludec 100 Unit/1 Ml Insuln.pen, 100 UNIT SQ HS, (Reported) Metoprolol Succinate 100 Mg Tab.er.24h, 200 MG PO DAILY, (Reported) Pantoprazole Sodium 40 Mg Tablet.dr, 40 MG PO DAILY, (Reported) Pravastatin Sodium 20 Mg Tablet, 20 MG PO HS, (Reported) HAS NOT PICKED UP YET Patient Home Medication List Home Medication List Reviewed: Yes Physical Exam-Cardiology Physical Exam Vital Signs/I&O 10/11/19 10/11/19 10/11/19 10/11/19 03:04 03:40 04:29 07:00 Temp 36.7 Pulse 86 72 84 Resp 24 18 B/P (MAP) 151/83 (105) Pulse Ox 92 97 94 O2 Delivery Nasal Cannula Nasal Cannula Nasal Cannula O2 Flow Rate 4.00 4.00 3.00 10/11/19 10/11/19 10/11/19 10/11/19 07:27 08:00 09:00 10:28 Pulse 82 Resp 26 B/P (MAP) 160/83 (108) Pulse Ox 95 90 92 98 O2 Delivery Nasal Cannula Nasal Cannula Nasal Cannula Nasal Cannula O2 Flow Rate 2.00 4.00 4.00 2.00 10/11/19 10/11/19 10/11/19 10:38 11:29 12:00 Temp 37.2 Pulse 77 81 Resp 14 22 B/P (MAP) 133/65 (87) 133/65 (87) Pulse Ox 95 98 O2 Delivery Room Air Nasal Cannula Room Air O2 Flow Rate 4.00 10/11/19 00:00 Intake Total 840 ml Output Total 1425 ml Balance -585 ml Capillary Refill : Less Than 3 Seconds Constitutional: AAO x 3, well-developed, well-nourished HEENT: PERRL, hearing is well preserved Neck: No carotid bruit; carotid pulses are 2 + bilaterally Respiratory: chest expansion is symmetric, chest is bilaterally symmetric, rhonchi (scattered), other (fair air entry) Cardiovascular: No JVD; S1 and S2 Gastrointestinal: No tender; soft, round, audible bowel sounds Extremities: no lower extremity edema bilateral Neurologic/Psychiatric: grossly intact (moves all extremities) Skin: No rash on exposed areas, No ulcerations on exposed areas Data Review Labs Laboratory Tests 10/10/19 15:30: White Blood Count 10.0, Red Blood Count 4.77, Hemoglobin 13.5, Hematocrit 40, Mean Corpuscular Volume 85, Mean Corpuscular Hemoglobin 28, Mean Corpuscular Hemoglobin Concent 34, Red Cell Distribution Width 13.9, Platelet Count 278, Mean Platelet Volume 9.8, Neutrophils (%) (Auto) 70, Lymphocytes (%) (Auto) 20, Monocytes (%) (Auto) 6, Eosinophils (%) (Auto) 4, Basophils (%) (Auto) 0, Neutrophils # (Auto) 7.0, Lymphocytes # (Auto) 2.0, Monocytes # (Auto) 0.6, Eosinophils # (Auto) 0.4H, Basophils # (Auto) 0.0, Sodium Level 140, Potassium Level 4.1, Chloride Level 107, Carbon Dioxide Level 22, Anion Gap 11, Blood Urea Nitrogen 11, Creatinine 0.92, Estimat Glomerular Filtration Rate > 60, BUN/Creatinine Ratio 12, Glucose Level 128H, Calcium Level 9.0, Corrected Calci um 9.2, Total Bilirubin 0.7, Aspartate Amino Transf (AST/SGOT) 18, Alanine Aminotransferase (ALT/SGPT) 24, Alkaline Phosphatase 29L, Troponin I 0.046H, Total Protein 6.8, Albumin 3.8 10/10/19 16:29: Glucometer 124H 10/10/19 20:05: Troponin I 0.049H 10/10/19 20:13: Glucometer 165H 10/11/19 03:35: White Blood Count 9.1, Red Blood Count 4.58, Hemoglobin 12.9L, Hematocrit 39L, Mean Corpuscular Volume 86, Mean Corpuscular Hemoglobin 28, Mean Corpuscular Hemoglobin Concent 33, Red Cell Distribution Width 14.0, Platelet Count 307, Mean Platelet Volume 9.7, Sodium Level 139, Potassium Level 4.1, Chloride Level 107, Carbon Dioxide Level 21, Anion Gap 11, Blood Urea Nitrogen 11, Creatinine 1.00, Estimat Glomerular Filtration Rate > 60, BUN/Creatinine Ratio 11, Glucose Level 145H, Calcium Level 9.1, Triglycerides Level 169H, Cholesterol Level 164, LDL Cholesterol Direct 124, VLDL Cholesterol 34, HDL Cholesterol 27L 10/11/19 11:28: Glucometer 79 Microbiology 10/10/19 Influenza Types A,B Antigen ([facility]IVER) - Final, Complete Laboratory Tests 10/10/19 08:10 10/10/19 15:30 10/11/19 03:35 A/P-Cardiology Assessment/Admission Diagnosis Pneumonia - management is by the Hospitalist Svce Mildly elevated troponin, type 2 SC, likely secondary to transient hypoxia CAD - Last card cath on 09/27/19: Coronary artery disease consisting of severe distal disease of the terminal left anterior descending where the vessel is of a very small caliber and not amenable to intervention. The mid left anterior descending artery has a widely patent stented segment (known to be overlapping Promus 3.0 x 12 and 2.25 x 16 mm stents, the overlap of which has been treated with a 3 mm balloon). The right coronary artery exhibits a chronic total occlusion within the stented distal part of the vessel and attempts at percutaneous intervention to this vessel today were unsuccessful. The left circumflex artery exhibits mild plaque. Mildly elevated left ventricular end- diastolic pressure. Labile hypertension - currently not well controlled Low TSH in Jul 2015, being followed by his pcp H/o PUD, based on endoscopy of 06/08/[address] Minaya that showed multiple gastric and duodenal ulcers. Anxiety Echo of 02/17/17: showed LVEF 55-65%, mildly dilated LA, hypokinesis of apical myocardium Maturity onset diabetes mellitus, being managed by Dr. Umanzor. Hyperlipidemia - intolerant to statin (muscle discomfort) Diagnosed with SLE by his pcp in early 2017 (managed by pcp) Gout. Carotid arterial disease. CTA of carotids on 09/20/15 showed 50% prox R ICA and less than 50% L ICA bulb stenoses. Mild carotid art disease on carotid u/s of 10/17/16 Peripheral arterial disease. S/p bilateral leg artery interventions by Dr Layton in Jul and Aug 2014. No leg claudication since Multiple rib fractures per report of November 2016 d/t a non-syncopal fall Discussion and Recomendations Management of pneumonia is per Medical/Hospitalist service BP not well controlled - continue home dose of antihypertensives and adjust as indicated Continue antiplatelet tx with ASA and Plavix d/t known h/o CAD Monitor lab closely Replace electrolytes Further recs will be based on his hospital course We would like to thank Medical services for this consult Clinical Quality Measures DVT/VTE Risk/Contraindication: Risk Factor Score Per Nursin RFS Level Per Nursing on Admit: 4+=Very High RANJAN CABRERA MD FACP FAC CCDS Oct 11, 2019 13:54
[2019-10-11] MEDS ORDERED: DEXTROSE 10% IV SOLUTION 1,000 ML IV SCH (14:15)
--- NOTE | 2019-10-11 14:56 | Progress Note ---
BLADIMIR MO,MED STUDENT 10/11/19 2346: Subjective Subjective/Events-last exam Patient seen and examined this morning at 0912. He states that he is feeling much better than yesterday, and he was able to sleep well. He feels like his breathing has improved greatly. His blood pressure was elevated to 160/80 this morning. He is on 2L of oxygen and maintaining O2 sats well as I am talking to him. Review of Systems General: No Chills; Other (denies fever) HEENT: No Head Aches Pulmonary: Dyspnea, Cough Cardiovascular: Orthopnea; No: Chest Pain, Edema Gastrointestinal: No: Nausea, Vomiting, Abdominal Pain Focused Exam Lactate Level 10/10/19 08:10: Lactic Acid Level 1.65 Respiratory: No Accessory Muscle Use, Crackles (faint, left upper lobe), Decreased Breath Sounds (bases) Cardiovascular: Regular Rate, Rhythm, No Murmur Peripheral Pulses: 2+ Dorsalis Pedis (R), 2+ Left Dors-Pedis (L), 2+ Radial Pulses (R), 2+ Radial Pulses (L) Skin: normal color, warm/dry Objective Exam Last Set of Vital Signs Vital Signs Date Time Temp Pulse Resp B/P (MAP) Pulse Ox O2 Delivery O2 Flow Rate FiO2 10/11/19 13:00 73 10/11/19 12:00 22 133/65 (87) 98 Room Air 10/11/19 11:29 37.2 4.00 10/10/19 18:55 36 Capillary Refill : Less Than 3 Seconds I&O Intake and Output 10/11/19 00:00 Intake Total 2090 ml Output Total 1425 ml Balance 665 ml Intake Oral 830 ml IV Total 1260 ml Output Urine Total 1425 ml Daily Weight Change No Results/Procedures Lab Laboratory Tests 10/10/19 15:30: White Blood Count 10.0, Red Blood Count 4.77, Hemoglobin 13.5, Hematocrit 40, Mean Corpuscular Volume 85, Mean Corpuscular Hemoglobin 28, Mean Corpuscular Hemoglobin Concent 34, Red Cell Distribution Width 13.9, Platelet Count 278, Mean Platelet Volume 9.8, Neutrophils (%) (Auto) 70, Lymphocytes (%) (Auto) 20, Monocytes (%) (Auto) 6, Eosinophils (%) (Auto) 4, Basophils (%) (Auto) 0, Neutrophils # (Auto) 7.0, Lymphocytes # (Auto) 2.0, Monocytes # (Auto) 0.6, Eosinophils # (Auto) 0.4H, Basophils # (Auto) 0.0, Sodium Level 140, Potassium Level 4.1, Chloride Level 107, Carbon Dioxide Level 22, Anion Gap 11, Blood Urea Nitrogen 11, Creatinine 0.92, Estimat Glomerular Filtration Rate > 60, BUN/Creatinine Ratio 12, Glucose Level 128H, Calcium Level 9.0, Corrected Calcium 9.2, Total Bilirubin 0.7, Aspartate Amino Transf (AST/SGOT) 18, Alanine Aminotransferase (ALT/SGPT) 24, Alkaline Phosphatase 29L, Troponin I 0.046H, Total Protein 6.8, Albumin 3.8 10/10/19 16:29: Glucometer 124H 10/10/19 20:05: Troponin I 0.049H 10/10/19 20:13: Glucometer 165H 10/11/19 03:35: White Blood Count 9.1, Red Blood Count 4.58, Hemoglobin 12.9L, Hematocrit 39L, Mean Corpuscular Volume 86, Mean Corpuscular Hemoglobin 28, Mean Corpuscular Hemoglobin Concent 33, Red Cell Distribution Width 14.0, Platelet Count 307, Mean Platelet Volume 9.7, Sodium Level 139, Potassium Level 4.1, Chloride Level 107, Carbon Dioxide Level 21, Anion Gap 11, Blood Urea Nitrogen 11, Creatinine 1.00, Estimat Glomerular Filtration Rate > 60, BUN/Creatinine Ratio 11, Glucose Level 145H, Calcium Level 9.1, Triglycerides Level 169H, Cholesterol Level 164, LDL Cholesterol Direct 124, VLDL Cholesterol 34, HDL Cholesterol 27L 10/11/19 11:28: Glucometer 79 Microbiology 10/10/19 Influenza Types A,B Antigen ([facility]IVER) - Final, Complete Radiology NAME: YVROSE GILLETTE [facility] REC#: [id number] PT STATUS: ADM IN : 1955 PHYSICIAN: MARTINA BLACK MD ADMIT DATE: 10/10/19/ICU Signed Date of Exam:10/11/19 CHEST 1 VIEW, AP/PA ONLY EXAMINATION: Chest radiograph, portable AP view. DATE: 10/11/2019 4:53 AM hours. INDICATION: 64-year-old male, sepsis. Pneumonia. COMPARISON: October 10, 2019 FINDINGS: Heart size and mediastinal contours are unchanged. There is no identified pneumothorax. There is mild blunting of the right and left lateral costophrenic angles which may relate to small effusions. There are mild streaky opacities in the lung bases which likely relate to atelectasis. There is subtle opacification in the left upper lobe likely relating to pneumonia or other alveolar consolidative process. IMPRESSION: 1. Subtle opacities in the left upper lobe likely relating to pneumonia or other alveolar consolidative process. 2. Small bilateral pleural effusions and atelectasis in the lower lobes. Dictated by: Dictated on workstation # [id number] Dict: 10/11/19 0702 Trans: 10/11/19 0858 [facility] [id number] Interpreted by: KATHY PEARL MD Electronically signed by: KATHY PEARL MD 10/11/19 0858 Assessment/Plan Assessment/Plan Assessment & Plan Assessment: -Pneumonia with acute respiratory failure -Hypertension -NSTEMI, elevated troponins -CHF exacerbation, with elevated BNP Plan: -Continue Azithromycin/Ceftriaxone and lasix -Start cardiac/diabetic diet -Encourage increased activity as tolerated -Could possibly move to floor soon -Appreciate cardiology consult (1) Pneumonia Status: Acute Assessment & Plan: Ceftriaxone and azithromycin. Qualifiers: Qualified Codes: J18.1 - Lobar pneumonia, unspecified organism (2) CHF exacerbation Status: Acute Assessment & Plan: Echo 07/2019 with EF of 50-55% with concentric hypertrophy and mildly increased wall thickness. Akinesis of the apical myocardium. Grade 1 diastolic function. BNP over 700. Lasix given in ER. Consult Cardiology in the morning, hold IVF. Qualifiers: Qualified Codes: I50.33 - Acute on chronic diastolic (congestive) heart failure (3) Elevated troponin Status: Acute Assessment & Plan: Minimal and stable, suspect related to respiratory issues, monitor, Cardiology consult. (4) Coronary artery disease Status: Acute Assessment & Plan: Chronic occlusions noted on cath recently, continue aspirin and plavix. Qualifiers: (5) HTN (hypertension) Status: Acute Assessment & Plan: Resume home medications (6) IDDM (insulin dependent diabetes mellitus) Status: Acute Assessment & Plan: Sliding scale insulin (7) Hyperlipidemia (8) DVT prophylaxis Assessment & Plan: Enoxaparin Clinical Quality Measures DVT/VTE Risk/Contraindication: Risk Factor Score Per Nursin RFS Level Per Nursing on Admit: 4+=Very High MARTINA BLACK MD 10/11/19 1526: Assessment/Plan Assessment/Plan Assessment & Plan (1) Pneumonia Status: Acute Assessment & Plan: Ceftriaxone and azithromycin. Improving. Qualifiers: Qualified Codes: J18.1 - Lobar pneumonia, unspecified organism (2) CHF exacerbation Status: Acute Assessment & Plan: Echo 07/2019 with EF of 50-55% with concentric hypertrophy and mildly increased wall thickness. Akinesis of the apical myocardium. Grade 1 diastolic function. BNP over 700. Lasix given in ER. Hold IVF. Appreciate Cardiology recommendations. Qualifiers: Qualified Codes: I50.33 - Acute on chronic diastolic (congestive) heart failure (3) Elevated troponin Status: Acute Assessment & Plan: Minimal and stable, suspect related to respiratory issues, monitor, Cardiology consulted appreciate recommendations. (4) Coronary artery disease Status: Acute Assessment & Plan: Chronic occlusions noted on cath recently, continue aspirin and plavix. Qualifiers: (5) HTN (hypertension) Status: Acute Assessment & Plan: Resume home medications (6) IDDM (insulin dependent diabetes mellitus) Status: Acute Assessment & Plan: Sliding scale insulin (7) Hyperlipidemia (8) DVT prophylaxis Assessment & Plan: Enoxaparin Supervisory-Addendum Brief Verification & Attestation Participated in pt care: history, MDM, physical Personally performed: exam, history, MDM Care discussed with: Medical Student Procedures: n/a Verification and Attestation of Medical Student E/M Service A medical student performed this service in my presence. I reviewed and verified all information documented by the medical student and made modifications to such information, when appropriate. Pt is not on lasix currently and I did not check peripheral pulses, otherwise physical exam reflects my findings. I personally performed the physical exam and medical decision making. Martina Black, Oct 11, 2019,15:27 BLADIMIR MO,MED STUDENT Oct 11, 2019 14:56 MARTINA BLACK MD Oct 11, 2019 15:26
[2019-10-11] MEDS: SIMvastatin 10 MG (ZOCOR) TAB PO SCH (20:31)
[2019-10-11] MEDS: ENOXAPARIN 40 MG/0.4 ML (LOVENOX) SYR SQ SCH (20:31)
[2019-10-12] MEDS: RT-ALBUTEROL SULF 2.5 MG/3 ML PRE-MIX VIAL INH SCH ×5 (01:37→23:27)
[2019-10-12 03:15] VITALS: BP 129/74
[2019-10-12 03:51] LABS: HEMOGLOBIN 12.6 G/DL (13.3-17.7); MEAN PLATELET VOLUME 9.8 FL (7.4-10.4); RED CELL DISTRIBUTION WIDTH 13.7 % (10.0-14.5); WHITE BLOOD COUNT 8.3 10^3/uL (4.3-11.0)
[2019-10-12 04:20] LABS: BUN/CREATININE RATIO 12; CALCIUM 9.1 MG/DL (8.5-10.1); CARBON DIOXIDE 24 MMOL/L (21-32); CHLORIDE 107 MMOL/L (98-107); CREATININE SERUM 1.17 MG/DL (0.60-1.30); GFR ESTIMATED > 60; GLUCOSE 112 MG/DL (70-105); SODIUM 140 MMOL/L (135-145)
[2019-10-12] MEDS: inSUlin ASPART (NovoLOG) 1 UNIT/0.01 ML (CHARGE PER UNIT) SC SCH ×7 (05:47→20:20)
[2019-10-12 07:40] VITALS: BP 127/53
--- NOTE | 2019-10-12 07:53 | Progress Note - Cardiology ---
Cardiology SOAP Progress Note Subjective: Feels better compared to time of admission Still weak and tired and has gen malaise No cp or palp or syncope No shortness of breath at rest Denies N/V Objective: I&O/Vital Signs 10/11/19 10/11/19 10/11/19 10/11/19 20:00 20:42 21:19 23:22 Temp 37.4 36.9 Pulse 85 70 Resp 16 18 B/P (MAP) 150/76 (100) 135/71 (92) Pulse Ox 95 92 97 95 O2 Delivery Nasal Cannula Nasal Cannula Nasal Cannula Nasal Cannula O2 Flow Rate 4.00 4.00 4.00 4.00 10/12/19 10/12/19 10/12/19 10/12/19 01:00 01:37 01:40 03:15 Temp 37.3 Pulse 67 73 67 Resp 16 16 B/P (MAP) 129/74 (92) Pulse Ox 95 93 97 O2 Delivery Nasal Cannula Nasal Cannula Nasal Cannula O2 Flow Rate 4.00 3.00 4.00 10/12/19 10/12/19 10/12/19 07:00 07:06 07:31 Pulse 84 Pulse Ox 94 O2 Delivery Nasal Cannula Nasal Cannula O2 Flow Rate 3.00 3.00 10/12/19 00:00 Intake Total 690 ml Output Total 450 ml Balance 240 ml Weight (Pounds): 205 Weight (Ounces): 0.0 Weight (Calculated Kilograms): 92.128388 Constitutional: AAO x 3, well-developed, well-nourished Respiratory: chest expansion is symmetric, chest is bilaterally symmetric, rhonchi (scattered), other (fair air entry) Cardiovascular: No JVD; S1 and S2 Gastrointestional: No tender; soft, round, audible bowel sounds Extremities: no lower extremity edema bilateral Neurologic/Psychiatric: grossly intact (moves all extremities) Skin: normal color, warm/dry Results/Procedures: Labs Laboratory Tests 10/11/19 11:28: Glucometer 79 10/11/19 16:04: Glucometer 194H 10/11/19 20:16: Glucometer 240H 10/12/19 03:30: White Blood Count 8.3, Red Blood Count 4.47, Hemoglobin 12.6L, Hematocrit 39L, Mean Corpuscular Volume 87, Mean Corpuscular Hemoglobin 28, Mean Corpuscular Hemoglobin Concent 33, Red Cell Distribution Width 13.7, Platelet Count 296, Mean Platelet Volume 9.8, Sodium Level 140, Potassium Level 4.0, Chloride Level 107, Carbon Dioxide Level 24, Anion Gap 9, Blood Urea Nitrogen 14, Creatinine 1.17, Estimat Glomerular Filtration Rate > 60, BUN/Creatinine Ratio 12, Glucose Level 112H, Calcium Level 9.1 10/12/19 05:52: Glucometer 102 Microbiology 10/10/19 Blood Culture - Preliminary, Resulted No growth 10/10/19 Influenza Types A,B Antigen ([facility]IVER) - Final, Complete Laboratory Tests 10/10/19 08:10 10/10/19 15:30 10/11/19 03:35 10/12/19 03:30 A/P: Assessment: Pneumonia - management is by the Hospitalist Kerry Mildly elevated troponin at presentation: type 2 [place] secondary to transient hypoxia CAD - Last card cath on 09/27/19: Coronary artery disease consisting of severe distal disease of the terminal left anterior descending where the vessel is of a very small caliber and not amenable to intervention. The mid left anterior descending artery has a widely patent stented segment (known to be overlapping Promus 3.0 x 12 and 2.25 x 16 mm stents, the overlap of which has been treated with a 3 mm balloon). The right coronary artery exhibits a chronic total occlusion within the stented distal part of the vessel and attempts at percutaneous intervention to this vessel today were unsuccessful. The left circumflex artery exhibits mild plaque. Mildly elevated left ventricular end- diastolic pressure. Labile hypertension - currently not well controlled Low TSH in Jul 2015, being followed by his pcp H/o PUD, based on endoscopy of 06/08/[address] Minaya that showed multiple gastric and duodenal ulcers. Anxiety Echo of 02/17/17: showed LVEF 55-65%, mildly dilated LA, hypokinesis of apical myocardium Maturity onset diabetes mellitus, being managed by Dr. Umanzor. Hyperlipidemia - intolerant to statin (muscle discomfort) Diagnosed with SLE by his pcp in early 2017 (managed by pcp) Gout. Carotid arterial disease. CTA of carotids on 09/20/15 showed 50% prox R ICA and less than 50% L ICA bulb stenoses. Mild carotid art disease on carotid u/s of 10/17/16 Peripheral arterial disease. S/p bilateral leg artery interventions by Dr Layton in Jul and Aug 2014. No leg claudication since Plan: Management of pneumonia is per Medical/Hospitalist service BP now improved Continue antiplatelet tx with ASA and Plavix d/t known h/o CAD Monitor lab closely RANJAN CABRERA MD FACP FAC CCDS Oct 12, 2019 07:53
[2019-10-12 09:00] VITALS: BP 134/62
--- NOTE | 2019-10-12 09:00 | Progress Note ---
BLADIMIR MO,MED STUDENT 10/12/19 0859: Subjective Subjective/Events-last exam Patient seen and examined this morning. He states that he is still feeling fatigued, but his breathing is better. Has not tried to get up and walk much yet. He also states that his hands are stiff and hurting this morning. Review of Systems General: No Chills; Fatigue HEENT: No Head Aches, No Visual Changes Pulmonary: Dyspnea; No Cough Cardiovascular: No: Chest Pain, Edema Gastrointestinal: No: Nausea, Vomiting, Abdominal Pain Musculoskeletal: hand pain Focused Exam Lactate Level 10/10/19 08:10: Lactic Acid Level 1.65 Time of Focused Exam: 07:27 Respiratory: No Accessory Muscle Use, No Respiratory Distress; No Crackles, No Wheezing Cardiovascular: Regular Rate, Rhythm, No Edema, No Murmur Peripheral Pulses: 2+ Dorsalis Pedis (R), 2+ Left Dors-Pedis (L), 2+ Radial Pulses (R), 2+ Radial Pulses (L) Skin: normal color, warm/dry Objective Exam Last Set of Vital Signs Vital Signs Date Time Temp Pulse Resp B/P (MAP) Pulse Ox O2 Delivery O2 Flow Rate FiO2 10/12/19 07:40 75 16 127/53 (77) 94 Nasal Cannula 3.00 10/12/19 03:15 37.3 10/10/19 18:55 36 Capillary Refill : Less Than 3 Seconds I&O Intake and Output 10/12/19 00:00 Intake Total 1165 ml Output Total 1350 ml Balance -185 ml Intake Oral 1165 ml Output Urine Total 1350 ml Results/Procedures Lab Laboratory Tests 10/11/19 11:28: Glucometer 79 10/11/19 16:04: Glucometer 194H 10/11/19 20:16: Glucometer 240H 10/12/19 03:30: White Blood Count 8.3, Red Blood Count 4.47, Hemoglobin 12.6L, Hematocrit 39L, Mean Corpuscular Volume 87, Mean Corpuscular Hemoglobin 28, Mean Corpuscular Hemoglobin Concent 33, Red Cell Distribution Width 13.7, Platelet Count 296, Mean Platelet Volume 9.8, Sodium Level 140, Potassium Level 4.0, Chloride Level 107, Carbon Dioxide Level 24, Anion Gap 9, Blood Urea Nitrogen 14, Creatinine 1.17, Estimat Glomerular Filtration Rate > 60, BUN/Creatinine Ratio 12, Glucose Level 112H, Calcium Level 9.1 10/12/19 05:52: Glucometer 102 Microbiology 10/10/19 Blood Culture - Preliminary, Resulted No growth 10/10/19 Influenza Types A,B Antigen ([facility]) - Final, Complete Radiology NAME: [facility] REC#: [id number] PT STATUS: ADM IN : 1955 PHYSICIAN: CHERELLE BLACK MD ADMIT DATE: 10/10/19/ICU Signed Date of Exam:10/11/19 CHEST 1 VIEW, AP/PA ONLY EXAMINATION: Chest radiograph, portable AP view. DATE: 10/11/2019 4:53 AM hours. INDICATION: 64-year-old male, sepsis. Pneumonia. COMPARISON: October 10, 2019 FINDINGS: Heart size and mediastinal contours are unchanged. There is no identified pneumothorax. There is mild blunting of the right and left lateral costophrenic angles which may relate to small effusions. There are mild streaky opacities in the lung bases which likely relate to atelectasis. There is subtle opacification in the left upper lobe likely relating to pneumonia or other alveolar consolidative process. IMPRESSION: 1. Subtle opacities in the left upper lobe likely relating to pneumonia or other alveolar consolidative process. 2. Small bilateral pleural effusions and atelectasis in the lower lobes. Dictated by: Dictated on workstation # [id number] Dict: 10/11/19 0702 Trans: 10/11/19 0858 [facility] [id number] Interpreted by: KATHY PEARL MD Electronically signed by: KATHY PERAL MD 10/11/19 0858 Assessment/Plan Assessment/Plan Assessment & Plan Assessment: -Pneumonia with acute respiratory failure -NSTEMI, elevated troponins- likely due to hypoxia -CHF exacerbation, with elevated BNP Plan: -Continue Azithromycin/Ceftriaxone and lasix -Should move to floor today -Encourage increased activity with PT as tolerated -Appreciate cardiology consult (1) Pneumonia Status: Acute Assessment & Plan: Ceftriaxone and azithromycin. Improving. Qualifiers: Qualified Codes: J18.1 - Lobar pneumonia, unspecified organism (2) CHF exacerbation Status: Acute Assessment & Plan: Echo 07/2019 with EF of 50-55% with concentric hypertrophy and mildly increased wall thickness. Akinesis of the apical myocardium. Grade 1 diastolic function. BNP over 700. Lasix given in ER. Hold IVF. Appreciate Cardiology recommendations. Qualifiers: Qualified Codes: I50.33 - Acute on chronic diastolic (congestive) heart failure (3) Elevated troponin Status: Acute Assessment & Plan: Minimal and stable, suspect related to respiratory issues, monitor, Cardiology consulted appreciate recommendations. (4) Coronary artery disease Status: Acute Assessment & Plan: Chronic occlusions noted on cath recently, continue aspirin and plavix. Qualifiers: (5) HTN (hypertension) Status: Acute Assessment & Plan: Resume home medications (6) IDDM (insulin dependent diabetes mellitus) Status: Acute Assessment & Plan: Sliding scale insulin (7) Hyperlipidemia (8) DVT prophylaxis Assessment & Plan: Enoxaparin (1) Pneumonia Status: Acute Assessment & Plan: Ceftriaxone and azithromycin. Qualifiers: Qualified Codes: J18.1 - Lobar pneumonia, unspecified organism (2) CHF exacerbation Status: Acute Assessment & Plan: Echo 07/2019 with EF of 50-55% with concentric hypertrophy and mildly increased wall thickness. Akinesis of the apical myocardium. Grade 1 diastolic function. BNP over 700. Lasix given in ER. Consult Cardiology in the morning, hold IVF. Qualifiers: Qualified Codes: I50.33 - Acute on chronic diastolic (congestive) heart failure (3) Elevated troponin Status: Acute Assessment & Plan: Minimal and stable, suspect related to respiratory issues, monitor, Cardiology consult. (4) Coronary artery disease Status: Acute Assessment & Plan: Chronic occlusions noted on cath recently, continue aspirin and plavix. Qualifiers: (5) HTN (hypertension) Status: Acute Assessment & Plan: Resume home medications (6) IDDM (insulin dependent diabetes mellitus) Status: Acute Assessment & Plan: Sliding scale insulin (7) Hyperlipidemia (8) DVT prophylaxis Assessment & Plan: Enoxaparin Clinical Quality Measures DVT/VTE Risk/Contraindication: Risk Factor Score Per Nursin RFS Level Per Nursing on Admit: 4+=Very High CHERELLE BLACK MD 10/12/19 1504: Assessment/Plan Assessment/Plan Assessment & Plan Not currently on lasix, but not clearly fluid overloaded either. Has wheezing on exam today, will start prednisone. Supervisory-Addendum Brief Verification & Attestation Participated in pt care: history, MDM, physical Personally performed: exam, history, MDM Care discussed with: Medical Student Procedures: n/a I personally have seen and evaluated the patient and performed the physical exam. I agree with the students documentation of assessment and plan except patient is not on lasix. My physical exam- regular rate and rhythm, expiratory wheezing, no respiratory distress, no pedal edema, abdomen soft and nontender with NABS. BLADIMIR MO,MED STUDENT Oct 12, 2019 08:59 CHERELLE BLACK MD Oct 12, 2019 15:04
[2019-10-12] MEDS: meTOprolol SUCCINATE 100 MG (TOPROL XL) TAB PO SCH (10:08)
[2019-10-12] MEDS: cloNIDine 0.1 MG (CATAPRES) TAB PO SCH ×2 (10:08→20:34)
[2019-10-12] MEDS: ASPIRIN E.C. 81 MG (ECOTRIN) TAB PO SCH (10:08)
[2019-10-12] MEDS: AZITHROMYCIN 250 MG TAB (ZITHROMAX) PO SCH (10:08)
[2019-10-12] MEDS: PANTOPRAZOLE 40 MG (PROTONIX) TAB PO SCH (10:08)
[2019-10-12] MEDS: amLODIPine 10 MG (NORVASC) TAB PO SCH (10:08)
[2019-10-12] MEDS: GABAPENTIN 400 MG (NEURONTIN) CAP PO SCH ×3 (10:09→20:34)
[2019-10-12] MEDS: CELECOXIB 100 MG (CeleBREX) CAP PO SCH ×2 (10:09→20:37)
[2019-10-12] MEDS: CLOPIDOGREL 75 MG (PLAVIX) TABLET PO SCH (10:21)
[2019-10-12] MEDS: cefTRIAXone FOR IV USE 1,000 MG in WATER (STERILE) FOR INJECTION 10 ML IV SCH ×2 (10:22)
[2019-10-12 12:00] VITALS: BP 129/60
[2019-10-12 15:48] VITALS: BP 130/60
--- NOTE | 2019-10-12 15:54 | Physical Therapy Evaluation ---
PT Evaluation-General Medical Diagnosis Admission Date Oct 10, 2019 at 13:35 Medical Diagnosis: PNA Onset Date: Oct 10, 2019 Therapy Diagnosis Therapy Diagnosis: Deconditioning Height/Weight Height (Feet): 5 Height (Inches): 8.00 Weight (Pounds): 205 Weight (Ounces): 0.0 Precautions Precautions/Isolations: Standard Precautions Weight Bear Status Right Lower Extremity: Right Weight Bearing/Tolerated Left Lower Extremity: Left Weight Bearing/Tolerated Referral Physician: Yoel Reason for Referral: Evaluation/Treatment Medical History Pertinent Medical History: ASVD, CAD, DM, HTN, AL, PVD Current History Patient presented to ER with SOB. Reviewed History: Yes Social History Home: Single Level Current Living Status: Spouse Entry Into Home: Level Entry Prior Prior Level of Function SCALE: Activities may be completed with or without assistive devices. 7-Sihjhltxtz-irhnaec completes the activity by him/herself with no assistance from a helper. 5-Set-up or Clean-up Assistance-helper sets up or cleans up; patient completes activity. Roff assists only prior to or following the activity. 4-Supervision or Touching Assistance-helper provides verbal cues and/or touching/steadying and/or contact guard assistance as patient completes activity. Assistance may be provided throughout the activity or intermittently. 3-Partial/Moderate Assistance-helper does LESS THAN HALF the effort. Roff lifts, holds or supports trunk or limbs, but provides less than half the effort. 2-Substantial/Maximal Assistance-helper does MORE THAN HALF the effort. Roff lifts or holds trunk or limbs and provides more than half the effort. 4-Ugzghtolv-gddcbb does ALL the effort. Patient does none of the effort to complete the activity. Or, the assistance of 2 or more helpers is required for the patient to complete the activity. If activity was not attempted, code reason: 7-Patient Refused. 9-Not Applicable-not attempted and the patient did not perform the activity before the current illness, exacerbation or injury. 10-Not Attempted due to Environmental Limitations-(lack of equipment, weather restraints, etc.). 88-Not Attempted due to Medical Conditions or Safety Concerns. Bed Mobility: 6 Transfers (B,C,W/C): 6 Gait: 6 Indoor Mobility (Ambulation): Independent Prior Device Use: Cane Patient states he does not use cane around the house, only when he is out of the house. PT Evaluation-Current Subjective Patient is agreeable to therapy and reports no pain at this time. Pt/Family Goals to be able to breathe better Objective Patient Orientation: Person, Place, Time, Situation Attachments: Oxygen (3L) ROM/Strength ROM Lower Extremities WFL BLE Strength Lower Extremities 4/5 gross BLE Integumentary/Posture Bowel Incontinence: No Bladder Incontinence: No Sensory Vision: Functional Hearing: Functional Sensation Right Lower Extremit: Intact Sensation Left Lower Extremity: Intact Sensation Lower Extremities Patient has numbness in tingling BLE almost all of the time due to neuropathy. Transfers Roll Left to Right (QC): 6 Sit to Lying (QC): 6 Lying to Sitting/Side of Bed(Q: 6 Sit to Stand (QC): 4 Gait Does the Patient Walk?: Yes Mode of Locomotion: Walk Anticipated Mode of Locomotion: Walk Walk 10 feet (QC): 4 Walk 50 ft with 2 Turns(QC): 4 Walk 150 ft (QC): 4 Distance: 300' Gait Assistive Device: Cane Large Base Quad Comments/Gait Description CGA for safety. Patient is steady during ambulation. Patient wanted to use quad cane because that is what he uses at home. Patient uses cane incorrectly but states he has been told how to do but doesn't want to change how he uses it. Wheelchair Training Does the Pt Use a Wheelchair?: No Balance Sitting Static: Good Sitting Dynamic: Good Standing Static: Good Standing Dynamic: Good Assessment/Needs Patient is steady during ambulation and walked at a faster pace. Patient uses cane incorrectly but does not want to fix it. Patient leans side to side while walking and states he always has. Patient in bed with call light and bedside table within reach. Rehab Potential: Good PT Hedis Nurse Goals Residential Goals PT Residential Goals Time Frame: Oct 19, 2019 Roll Left & Right (QC): 6 Sit to Lying (QC): 6 Lying-Sitting on Side/Bed(QC): 6 Sit to Stand (QC): 6 Chair/Kgn-fs-Njlhs Xfer(QC): 6 Toilet Transfer (QC): 6 Does the Patient Walk: Yes Walk 10 feet (QC): 6 Walk 50ft with 2 Turns (QC): 6 Walk 150 ft (QC): 6 Does the Pt use WC or Scooter?: No PT Plan Problem List Problem List: Activity Tolerance, Functional Strength, Safety, Balance, Gait, Transfer Treatment/Plan Treatment Plan: Continue Plan of Care Treatment Plan: Education, Functional Activity Mitul, Functional Strength, Gait, Safety, Therapeutic Exercise, Transfers Treatment Duration: Oct 19, 2019 Frequency: 6 times per week Estimated Hrs Per Day: .25 hour per day Patient and/or Family Agrees t: Yes Safety Risks/Education Patient Education: Gait Training, Transfer Techniques, Safety Issues Teaching Recipient: Patient Teaching Methods: Discussion Response to Teaching: Reinforcement Needed Discharge Recommendations Therapy Discharge Recommendati: Home & Family Time/GCodes Time In: 1520 Time Out: 1538 Total Billed Treatment Time: 18 Total Billed Treatment 1 visit EVL 18 HANY JEAN-BAPTISTE PT Oct 12, 2019 15:54
[2019-10-12] MEDS: predniSONE 20 MG TAB PO SCH (16:27)
[2019-10-12 20:16] VITALS: BP 115/60
[2019-10-12] MEDS: ENOXAPARIN 40 MG/0.4 ML (LOVENOX) SYR SQ SCH (20:33)
[2019-10-12] MEDS: SIMvastatin 10 MG (ZOCOR) TAB PO SCH (20:34)
[2019-10-13 00:31] VITALS: BP 123/59
[2019-10-13] MEDS: RT-ALBUTEROL SULF 2.5 MG/3 ML PRE-MIX VIAL INH SCH ×3 (02:35→10:45)
[2019-10-13 04:00] VITALS: BP 145/89
[2019-10-13] MEDS: predniSONE 20 MG TAB PO SCH (05:30)
[2019-10-13] MEDS: inSUlin ASPART (NovoLOG) 1 UNIT/0.01 ML (CHARGE PER UNIT) SC SCH ×4 (05:32→12:36)
[2019-10-13 07:13] LABS: RED CELL DISTRIBUTION WIDTH 13.5 % (10.0-14.5); WHITE BLOOD COUNT 9.5 10^3/uL (4.3-11.0)
[2019-10-13 07:31] LABS: CALCIUM 9.2 MG/DL (8.5-10.1); CREATININE SERUM 1.24 MG/DL (0.60-1.30); POTASSIUM 4.6 MMOL/L (3.6-5.0)
[2019-10-13] MEDS: meTOprolol SUCCINATE 100 MG (TOPROL XL) TAB PO SCH (07:39)
[2019-10-13] MEDS: AZITHROMYCIN 250 MG TAB (ZITHROMAX) PO SCH (07:39)
[2019-10-13] MEDS: CELECOXIB 100 MG (CeleBREX) CAP PO SCH (07:39)
[2019-10-13] MEDS: CLOPIDOGREL 75 MG (PLAVIX) TABLET PO SCH (07:40)
[2019-10-13] MEDS: GABAPENTIN 400 MG (NEURONTIN) CAP PO SCH ×3 (07:40→12:38)
[2019-10-13] MEDS: amLODIPine 10 MG (NORVASC) TAB PO SCH (07:40)
[2019-10-13] MEDS: ASPIRIN E.C. 81 MG (ECOTRIN) TAB PO SCH (07:40)
[2019-10-13] MEDS: cloNIDine 0.1 MG (CATAPRES) TAB PO SCH (07:40)
[2019-10-13] MEDS: PANTOPRAZOLE 40 MG (PROTONIX) TAB PO SCH (07:40)
[2019-10-13 08:12] VITALS: BP 122/55
--- NOTE | 2019-10-13 09:52 | NUR ---
Pt is listed as Denominational but leans more toward [employer].
--- NOTE | 2019-10-13 10:02 | Physical Therapy Daily Note ---
PT Daily Note-Current Subjective Patient is agreeable to therapy at this time and reports no pain. Appearance Patient in bed with call light and bedside table within reach. Mental Status Patient Orientation: Normal For Age Attachments: Oxygen (1L) Transfers SCALE: Activities may be completed with or without assistive devices. 4-Zioaddygmz-ksekehx completes the activity by him/herself with no assistance from a helper. 5-Set-up or Clean-up Assistance-helper sets up or cleans up; patient completes activity. [place] assists only prior to or following the activity. 4-Supervision or Touching Assistance-helper provides verbal cues and/or touching/steadying and/or contact guard assistance as patient completes activity. Assistance may be provided throughout the activity or intermittently. 3-Partial/Moderate Assistance-helper does LESS THAN HALF the effort. [place] lifts, holds or supports trunk or limbs, but provides less than half the effort. 2-Substantial/Maximal Assistance-helper does MORE THAN HALF the effort. [place] lifts or holds trunk or limbs and provides more than half the effort. 7-Kktoyygup-snwxhb does ALL the effort. Patient does none of the effort to complete the activity. Or, the assistance of 2 or more helpers is required for the patient to complete the activity. If activity was not attempted, code reason: 7-Patient Refused. 9-Not Applicable-not attempted and the patient did not perform the activity before the current illness, exacerbation or injury. 10-Not Attempted due to Environmental Limitations-(lack of equipment, weather restraints, etc.). 88-Not Attempted due to Medical Conditions or Safety Concerns. Roll Left & Right (QC): 6 Sit to Lying (QC): 6 Lying to Sitting/Side of Bed(Q: 6 Sit to Stand (QC): 4 (SBA) Weight Bearing Right Lower Extremity: Right Weight Bearing/Tolerated Left Lower Extremity: Left Weight Bearing/Tolerated Gait Training Does the Patient Walk?: Yes Distance: 400' Walk 10 feet (QC): 4 Walk 50 ft with 2 Turns(QC): 4 Walk 150 ft (QC): 4 Gait Persons Needed: 1 Gait Assistive Device: Cane Large Base Quad SBA during ambulation. Patient uses his own quad cane to ambulate with. Wheelchair Training Does the Pt Use a Wheelchair?: No Exercises Seated Therapy Exercises: Ankle pumps (20BLE), Long arc quads (20BLE), Hip flexion (20BLE) Treatments Bed mobility, transfers, BLE exercises, ambulation. Assessment Patient is steady during ambulation using his own quad cane. Patient faces the cane the wrong direction while using it but does not want to fix this. PT Residential Goals Swine Genetics Researcher Goals PT Swine Genetics Researcher Goals Time Frame: Oct 19, 2019 Roll Left & Right (QC): 6 Sit to Lying (QC): 6 Lying-Sitting on Side/Bed(QC): 6 Sit to Stand (QC): 6 Chair/Ibm-il-Sveez Xfer(QC): 6 Toilet Transfer (QC): 6 Does the Patient Walk: Yes Walk 10 feet (QC): 6 Walk 50ft with 2 Turns (QC): 6 Walk 150 ft (QC): 6 Does the Pt use WC or Scooter?: No PT Plan Problem List Problem List: Activity Tolerance, Functional Strength, Safety, Balance, Gait, Transfer Treatment/Plan Treatment Plan: Continue Plan of Care Treatment Plan: Education, Functional Activity Mitul, Functional Strength, Gait, Safety, Therapeutic Exercise, Transfers Treatment Duration: Oct 19, 2019 Frequency: 6 times per week Estimated Hrs Per Day: .25 hour per day Patient and/or Family Agrees t: Yes Safety Risks/Education Patient Education: Gait Training, Transfer Techniques Teaching Recipient: Patient Teaching Methods: Discussion Response to Teaching: Reinforcement Needed Time/GCodes Time In: 858 Time Out: 911 Total Billed Treatment Time: 13 Total Billed Treatment 1 visit FA 13 INDRA ZENG PT Oct 13, 2019 10:02
--- NOTE | 2019-10-13 10:12 | Progress Note - Cardiology ---
Cardiology SOAP Progress Note Subjective: Lying in bed. States he feels much better and stronger today. Feels SOB has improved from yesterday. No c/o CP or palpitations. Objective: I&O/Vital Signs 10/12/19 10/13/19 10/13/19 10/13/19 23:28 00:31 01:00 02:06 Temp 36.6 Pulse 86 70 Resp 20 B/P (MAP) 123/59 (80) Pulse Ox 98 97 97 O2 Delivery Nasal Cannula Nasal Cannula Nasal Cannula O2 Flow Rate 3.00 4.00 3.00 10/13/19 10/13/19 10/13/19 10/13/19 02:36 04:00 07:00 07:38 Temp 36.3 Pulse 75 73 Resp 21 B/P (MAP) 145/89 (107) Pulse Ox 95 98 97 O2 Delivery Nasal Cannula Nasal Cannula Nasal Cannula O2 Flow Rate 3.00 4.00 3.00 10/13/19 10/13/19 10/13/19 08:12 09:00 10:02 Temp 36.4 Pulse 79 Resp 18 B/P (MAP) 122/55 (77) Pulse Ox 97 97 97 O2 Delivery Nasal Cannula Nasal Cannula Nasal Cannula O2 Flow Rate 1.00 1.00 1.00 10/13/19 00:00 Intake Total 420 ml Balance 420 ml Weight (Pounds): 205 Weight (Ounces): 0.0 Weight (Calculated Kilograms): 92.938020 Constitutional: AAO x 3, well-developed, well-nourished Respiratory: chest expansion is symmetric, chest is bilaterally symmetric, other (good air entry) Cardiovascular: regular rate-rhythm; No JVD; S1 and S2 Gastrointestional: No tender; soft, round, audible bowel sounds Extremities: no lower extremity edema bilateral Neurologic/Psychiatric: grossly intact (moves all extremities) Skin: normal color, warm/dry Results/Procedures: Labs Laboratory Tests 10/12/19 11:24: Glucometer 137H 10/12/19 15:51: Glucometer 125H 10/12/19 20:19: Glucometer 143H 10/13/19 05:18: Glucometer 311H 10/13/19 05:52: White Blood Count 9.5, Red Blood Count 4.26L, Hemoglobin 12.0L, Hematocrit 37L, Mean Corpuscular Volume 86, Mean Corpuscular Hemoglobin 28, Mean Corpuscular Hemoglobin Concent 33, Red Cell Distribution Width 13.5, Platelet Count 302, Mean Platelet Volume 10.0, Sodium Level 139, Potassium Level 4.6, Chloride Level 105, Carbon Dioxide Level 22, Anion Gap 12, Blood Urea Nitrogen 18, Creatinine 1.24, Estimat Glomerular Filtration Rate 59, BUN/Creatinine Ratio 15, Glucose Level 279H, Calcium Level 9.2 Microbiology 10/10/19 Blood Culture - Preliminary, Resulted No growth 10/10/19 Influenza Types A,B Antigen ([facility]) - Final, Complete Laboratory Tests 10/12/19 03:30 10/13/19 05:52 A/P: Assessment: Pneumonia - management is by the Hospitalist Kerry Mildly elevated troponin at presentation: type 2 [place] secondary to transient hypoxia CAD - Last card cath on 09/27/19: Coronary artery disease consisting of severe distal disease of the terminal left anterior descending where the vessel is of a very small caliber and not amenable to intervention. The mid left anterior descending artery has a widely patent stented segment (known to be overlapping Promus 3.0 x 12 and 2.25 x 16 mm stents, the overlap of which has been treated with a 3 mm balloon). The right coronary artery exhibits a chronic total occlusion within the stented distal part of the vessel and attempts at percutaneous intervention to this vessel today were unsuccessful. The left circumflex artery exhibits mild plaque. Mildly elevated left ventricular end- diastolic pressure. Labile hypertension - currently not well controlled Low TSH in Jul 2015, being followed by his pcp H/o PUD, based on endoscopy of 06/08/[address] Minaya that showed multiple gastric and duodenal ulcers. Anxiety Echo of 02/17/17: showed LVEF 55-65%, mildly dilated LA, hypokinesis of apical myocardium Maturity onset diabetes mellitus, being managed by Dr. Umanzor. Hyperlipidemia - intolerant to statin (muscle discomfort) Diagnosed with SLE by his pcp in early 2017 (managed by pcp) Gout. Carotid arterial disease. CTA of carotids on 09/20/15 showed 50% prox R ICA and less than 50% L ICA bulb stenoses. Mild carotid art disease on carotid u/s of 10/17/16 Peripheral arterial disease. S/p bilateral leg artery interventions by Dr Layton in Jul and Aug 2014. No leg claudication since Plan: Management of pneumonia is per Medical/Hospitalist service Continue current medication regimen Continue antiplatelet tx with ASA and Plavix d/t known h/o CAD Monitor lab closely Replace electrolytes as indicated BLADIMIR MCLAIN Oct 13, 2019 10:12
[2019-10-13] MEDS: cefTRIAXone FOR IV USE 1,000 MG in WATER (STERILE) FOR INJECTION 10 ML IV SCH (10:56)
--- NOTE | 2019-10-13 11:31 | Progress Note ---
BLADIMIR MO,MED STUDENT 10/13/19 1131: Subjective Subjective/Events-last exam Patient seen and examined this morning. He states he is feeling much better than yesterday. He is breathing better and down to only 1L of O2 via nasal canula. He has also been up walking more. His hands feel much better than yesterday as well. Review of Systems General: No Chills; Fatigue (improving) HEENT: No Head Aches Pulmonary: No Dyspnea, No Cough Cardiovascular: No: Chest Pain, Edema Gastrointestinal: No: Nausea, Vomiting, Abdominal Pain Neurological: Weakness (improving) Objective Exam Last Set of Vital Signs Vital Signs Date Time Temp Pulse Resp B/P (MAP) Pulse Ox O2 Delivery O2 Flow Rate FiO2 10/13/19 10:45 96 Nasal Cannula 1.00 10/13/19 08:12 36.4 79 18 122/55 (77) 10/10/19 18:55 36 Capillary Refill : Less Than 3 SecondsLess Than 3 Seconds I&O Intake and Output 10/13/19 00:00 Intake Total 620 ml Output Total 300 ml Balance 320 ml Intake Oral 620 ml Output Urine Total 300 ml # Voids 3 Daily Weight Change No General: Alert, Oriented X3, No Acute Distress HEENT: EOMI, Mucous Memb Moist/[place] Lungs: Clear to Auscultation Heart: Regular Rate, No Murmurs Abdomen: Normal Bowel Sounds, No Tenderness Extremities: No Edema, Normal Pulses Results/Procedures Lab Laboratory Tests 10/12/19 15:51: Glucometer 125H 10/12/19 20:19: Glucometer 143H 10/13/19 05:18: Glucometer 311H 10/13/19 05:52: White Blood Count 9.5, Red Blood Count 4.26L, Hemoglobin 12.0L, Hematocrit 37L, Mean Corpuscular Volume 86, Mean Corpuscular Hemoglobin 28, Mean Corpuscular Hemoglobin Concent 33, Red Cell Distribution Width 13.5, Platelet Count 302, Mean Platelet Volume 10.0, Sodium Level 139, Potassium Level 4.6, Chloride Level 105, Carbon Dioxide Level 22, Anion Gap 12, Blood Urea Nitrogen 18, Creatinine 1.24, Estimat Glomerular Filtration Rate 59, BUN/Creatinine Ratio 15, Glucose Level 279H, Calcium Level 9.2 10/13/19 10:54: Glucometer 218H Microbiology 10/10/19 Blood Culture - Preliminary, Resulted No growth 10/10/19 Influenza Types A,B Antigen (OLIVER) - Final, Complete Radiology NAME: YVROSE GILLETTE [facility] REC#: [id number] PT STATUS: ADM IN : 1955 PHYSICIAN: CHERELLE BLACK MD ADMIT DATE: 10/10/19/ICU Signed Date of Exam:10/11/19 CHEST 1 VIEW, AP/PA ONLY EXAMINATION: Chest radiograph, portable AP view. DATE: 10/11/2019 4:53 AM hours. INDICATION: 64-year-old male, sepsis. Pneumonia. COMPARISON: October 10, 2019 FINDINGS: Heart size and mediastinal contours are unchanged. There is no identified pneumothorax. There is mild blunting of the right and left lateral costophrenic angles which may relate to small effusions. There are mild streaky opacities in the lung bases which likely relate to atelectasis. There is subtle opacification in the left upper lobe likely relating to pneumonia or other alveolar consolidative process. IMPRESSION: 1. Subtle opacities in the left upper lobe likely relating to pneumonia or other alveolar consolidative process. 2. Small bilateral pleural effusions and atelectasis in the lower lobes. Dictated by: Dictated on workstation # [id number] Dict: 10/11/19 07 Trans: 10/11/19 0858 [facility] [id number] Interpreted by: KATHY PEARL MD Electronically signed by: KATHY PEARL MD 10/11/19 0858 Assessment/Plan Assessment/Plan Assessment & Plan Pneumonia with acute respiratory failure- improving, now down to 1L O2, cu rrently on azithromycin/ceftriaxone and prednisone Will have RT see if he qualifies for home O2, should be able to D/C today. Clinical Quality Measures DVT/VTE Risk/Contraindication: Risk Factor Score Per Nursin RFS Level Per Nursing on Admit: 4+=Very High CHERELLE BLACK MD 10/13/192115: Supervisory-Addendum Brief Verification & Attestation Participated in pt care: history, MDM, physical Personally performed: exam, history, MDM, supervision of care Care discussed with: Medical Student Procedures: n/a I personally have seen and evaluated the patient, see the discharge summary for my exam and plans. BLADIMIR MO,MED STUDENT Oct 13, 2019 11:31 CHERELLE BLACK MD Oct 13, 2019 21:16
[2019-10-13 12:00] VITALS: BP 126/62
[2019-10-13] MEDS ORDERED: DOXY100C2 PO (12:18)
[2019-10-13] MEDS ORDERED: PRD50T PO (12:18)
--- NOTE | 2019-10-13 12:19 | Discharge Summary ---
Discharge [facility] Discharge Medications New, Converted or Re-Newed RX: Transmitted to Pharmacy New Medications: Doxycycline Hyclate (Doxycycline Hyclate) 100 Mg Capsule 100 MG PO BID for 3 Days, #6 CAP 0 Refills Prednisone (Prednisone) 50 Mg Tab 50 MG PO DAILY, #4 TAB 0 Refills Continued Medications: Amlodipine Besylate (Amlodipine Besylate) 10 Mg Tablet 10 MG PO DAILY, TAB Aspirin (Aspirin EC) 81 Mg Tablet.dr 81 MG PO DAILY, TAB Celecoxib (Celecoxib) 200 Mg Capsule 200 MG PO BID Clonidine HCl (Clonidine HCl) 0.1 Mg Tablet 0.1 MG PO BID, TAB Clopidogrel Bisulfate (Clopidogrel) 75 Mg Tablet 75 MG PO DAILY Fish Oil/Dha/Epa (Fish Oil 1,200 mg Fish Oil) 1 Each Capsule 1200 MG PO DAILY, CAP Gabapentin (Gabapentin) 800 Mg Tablet 800 MG PO TID, TAB LAST FILLED #90 07-20-19 Glipizide (Glipizide) 5 Mg Tablet 5 MG PO DAILY, TAB HAS NOT STARTED YET Insulin Aspart (Novolog) 100 Unit/1 Ml Susp 28 UNIT SQ TIDAC, EACH Insulin Degludec (Tresiba Flextouch U-100) 100 Unit/1 Ml Insuln.pen 100 UNIT SQ HS, EA Metoprolol Succinate (Metoprolol Succinate) 100 Mg Tab.er.24h 200 MG PO DAILY, TAB Pantoprazole Sodium (Pantoprazole Sodium) 40 Mg Tablet.dr 40 MG PO DAILY, TAB Pravastatin Sodium (Pravastatin Sodium) 20 Mg Tablet 20 MG PO HS, TAB HAS NOT PICKED UP YET Patient Instructions Goal/Follow Up Appt: Follow up with Orlin Roland APRN on 10/19 at 2:20 pm. Return to [facility] For: Worsening shortness of breath, fever, inability to keep down medications Activity & Diet Discharge Diet: ADA Diet Activity as Tolerated: Yes CHERELLE BLACK MD Oct 13, 2019 12:19
--- NOTE | 2019-10-13 13:51 | Progress Note - Cardiology ---
Cardiology SOAP Progress Note Subjective: No cp or palp or syncope Some tiredness, but is improved compared to a couple of days ago No shortness of breath at rest No N/V Good appetite Objective: I&O/Vital Signs 10/13/19 10/13/19 10/13/19 10/13/19 02:06 02:36 04:00 07:00 Temp 36.3 Pulse 75 73 Resp 21 B/P (MAP) 145/89 (107) Pulse Ox 97 95 98 O2 Delivery Nasal Cannula Nasal Cannula Nasal Cannula O2 Flow Rate 3.00 3.00 4.00 10/13/19 10/13/19 10/13/19 10/13/19 07:38 08:12 09:00 10:02 Temp 36.4 Pulse 79 Resp 18 B/P (MAP) 122/55 (77) Pulse Ox 97 97 97 97 O2 Delivery Nasal Cannula Nasal Cannula Nasal Cannula Nasal Cannula O2 Flow Rate 3.00 1.00 1.00 1.00 10/13/19 10/13/19 10:45 12:00 Temp 36.6 Pulse 68 Resp 18 B/P (MAP) 126/62 (83) Pulse Ox 96 95 O2 Delivery Nasal Cannula Room Air O2 Flow Rate 1.00 10/13/19 00:00 Intake Total 420 ml Balance 420 ml Weight (Pounds): 205 Weight (Ounces): 0.0 Weight (Calculated Kilograms): [id number] Constitutional: AAO x 3, well-developed, well-nourished Respiratory: chest expansion is symmetric, chest is bilaterally symmetric, other (good air entry) Cardiovascular: regular rate-rhythm; No JVD; S1 and S2 Gastrointestional: No tender; soft, round, audible bowel sounds Extremities: no lower extremity edema bilateral Neurologic/Psychiatric: grossly intact (moves all extremities) Skin: normal color, warm/dry Results/Procedures: Labs Laboratory Tests 10/12/19 15:51: Glucometer 125H 10/12/19 20:19: Glucometer 143H 10/13/19 05:18: Glucometer 311H 10/13/19 05:52: White Blood Count 9.5, Red Blood Count 4.26L, Hemoglobin 12.0L, Hematocrit 37L, Mean Corpuscular Volume 86, Mean Corpuscular Hemoglobin 28, Mean Corpuscular Hemoglobin Concent 33, Red Cell Distribution Width 13.5, Platelet Count 302, Mean Platelet Volume 10.0, Sodium Level 139, Potassium Level 4.6, Chloride Level 105, Carbon Dioxide Level 22, Anion Gap 12, Blood Urea Nitrogen 18, Creatinine 1.24, Estimat Glomerular Filtration Rate 59, BUN/Creatinine Ratio 15, Glucose Level 279H, Calcium Level 9.2 10/13/19 10:54: Glucometer 218H Microbiology 10/10/19 Blood Culture - Preliminary, Resulted No growth 10/10/19 Influenza Types A,B Antigen (OLIVER) - Final, Complete Laboratory Tests 10/12/19 03:30 10/13/19 05:52 A/P: Assessment: Pneumonia - management is by the Hospitalist Kerry Mildly elevated troponin at presentation: type 2 OK secondary to transient hypoxia CAD - Last card cath on 09/27/19: Coronary artery disease consisting of severe distal disease of the terminal left anterior descending where the vessel is of a very small caliber and not amenable to intervention. The mid left anterior descending artery has a widely patent stented segment (known to be overlapping Promus 3.0 x 12 and 2.25 x 16 mm stents, the overlap of which has been treated with a 3 mm balloon). The right coronary artery exhibits a chronic total occlusion within the stented distal part of the vessel and attempts at percutaneous intervention to this vessel today were unsuccessful. The left circumflex artery exhibits mild plaque. Mildly elevated left ventricular end- diastolic pressure. Labile hypertension - currently not well controlled Low TSH in Jul 2015, being followed by his pcp H/o PUD, based on endoscopy of 06/08/[address] Minaya that showed multiple gastric and duodenal ulcers. Anxiety Echo of 02/17/17: showed LVEF 55-65%, mildly dilated LA, hypokinesis of apical myocardium Maturity onset diabetes mellitus, being managed by Dr. Umanzor. Hyperlipidemia - intolerant to statin (muscle discomfort) Diagnosed with SLE by his pcp in early 2017 (managed by pcp) Gout. Carotid arterial disease. CTA of carotids on 09/20/15 showed 50% prox R ICA and less than 50% L ICA bulb stenoses. Mild carotid art disease on carotid u/s of Peripheral arterial disease. S/p bilateral leg artery interventions by Dr Layton in Jul and Aug 2014. No leg claudication since Plan: * Pl continue previous cardiac regimen * I spoke with him in detail and answered CV-related questions * Ok to d/c from cardiac standpoint * F/u at our office within two weeks RANJAN CABRERA MD FACP FACC CCDS Oct 13, 2019 13:51
--- NOTE | 2019-10-13 14:12 | NUR ---
patient had been on RA for over 3 hours when O2 walk was completed. O2 sat on RA was 95% with a HR of 74 at rest; o2 walk was started on RA with a O2 Sat of 90% and HR of 79; O2 Sat was monitored for 6 mins during ambulation and O2 Sat did not drop below 90% the entire 6 mins and HR ranged from 87 to 94. Patient did not need O2 at rest or on exertion at this time. Patient did have to stop and rest during the O2 walk/qualification but recovered and was able to finish out the walk.
--- NOTE | 2019-10-13 14:32 | Discharge Summary ---
Discharge Summary Hospital Course Problems/Diagnosis: (1) Pneumonia Status: Acute Assessment & Plan: Treated with ceftriaxone and azithromycin, hypoxia resolved by d/c, discharged with doxycycline. Did have wheezing and has rheumatologic disease underlying, so prednisone was started which led to marked improvement and short course was continued on d/c. Qualifiers: Qualified Codes: J18.1 - Lobar pneumonia, unspecified organism (2) CHF exacerbation Status: Acute Assessment & Plan: Echo 07/2019 with EF of 50-55% with concentric hypertrophy and mildly increased wall thickness. Akinesis of the apical myocardium. Grade 1 diastolic function. BNP over 700. Lasix given in ER. Consulted Cardiology. Did not require further lasix. Qualifiers: Qualified Codes: I50.33 - Acute on chronic diastolic (congestive) heart failure (3) Elevated troponin Status: Acute Assessment & Plan: Minimal and stable, suspect related to respiratory issues, Cardiology consulted. (4) Coronary artery disease Status: Acute Assessment & Plan: Chronic occlusions noted on cath recently, continue aspirin and plavix. Qualifiers: (5) HTN (hypertension) Status: Acute Assessment & Plan: Resume home medications (6) IDDM (insulin dependent diabetes mellitus) Status: Acute Assessment & Plan: Sliding scale insulin (7) Hyperlipidemia Hospital Course Date of Admission: Oct 10, 2019 at 13:35 Admission Diagnosis : Family Physician/Provider: Mike Roland Date of Discharge: 10/13/19 Discharge Diagnosis: See problem list Hospital Course: See problem list Labs and Pending Lab Test: Laboratory Tests 10/12/19 15:51: Glucometer 125H 10/12/19 20:19: Glucometer 143H 10/13/19 05:18: Glucometer 311H 10/13/19 05:52: White Blood Count 9.5, Red Blood Count 4.26L, Hemoglobin 12.0L, Hematocrit 37L, Mean Corpuscular Volume 86, Mean Corpuscular Hemoglobin 28, Mean Corpuscular Hemoglobin Concent 33, Red Cell Distribution Width 13.5, Platelet Count 302, Mean Platelet Volume 10.0, Sodium Level 139, Potassium Level 4.6, Chloride Level 105, Carbon Dioxide Level 22, Anion Gap 12, Blood Urea Nitrogen 18, Creatinine 1.24, Estimat Glomerular Filtration Rate 59, BUN/Creatinine Ratio 15, Glucose Level 279H, Calcium Level 9.2 10/13/19 10:54: Glucometer 218H Microbiology 10/10/19 Blood Culture - Preliminary, Resulted No growth 10/10/19 Influenza Types A,B Antigen (OLIVER) - Final, Complete Home Meds Active Doxycycline Hyclate 100 Mg Capsule 100 Mg PO BID 3 Days Prednisone 50 Mg Tab 50 Mg PO DAILY Reported Pravastatin Sodium 20 Mg Tablet 20 Mg PO HS HAS NOT PICKED UP YET Glipizide 5 Mg Tablet 5 Mg PO DAILY HAS NOT STARTED YET Metoprolol Succinate 100 Mg Tab.er.24h 200 Mg PO DAILY Aspirin EC (Aspirin) 81 Mg Tablet.dr 81 Mg PO DAILY Clonidine HCl 0.1 Mg Tablet 0.1 Mg PO BID Gabapentin 800 Mg Tablet 800 Mg PO TID LAST FILLED #90 07-20-19 Fish Oil 1,200 mg Fish Oil (Fish Oil/Dha/Epa) 1 Each Capsule 1,200 Mg PO DAILY Pantoprazole Sodium 40 Mg Tablet.dr 40 Mg PO DAILY Novolog (Insulin Aspart) 100 Unit/1 Ml Susp 28 Unit SQ TIDAC Tresiba Flextouch U-100 (Insulin Degludec) 100 Unit/1 Ml Insuln.pen 100 Unit SQ HS Amlodipine Besylate 10 Mg Tablet 10 Mg PO DAILY Celecoxib 200 Mg Capsule 200 Mg PO BID Clopidogrel (Clopidogrel Bisulfate) 75 Mg Tablet 75 Mg PO DAILY Assessment/Pt DC Instructions See above Discharge Physical Examination Allergies: Coded Allergies: carvedilol (Unverified Allergy, Unknown, 01/22/10) codeine (Unverified Allergy, Unknown, PATIENT HAS RECEIVED MORPHINE WITHOUT ISSUE, 06/08/15) General Appearance: No Apparent Distress, WD/WN Respiratory: Lungs Clear, Normal Breath Sounds Cardiovascular: Regular Rate, Rhythm, No Murmur Skin: Normal Color, Warm/Dry Neurologic/Psychiatric: Alert, Normal Mood/Affect Copy Copies To 1: Orlin Roland APRN Clinical Quality Measures DVT/VTE Risk/Contraindication: Risk Factor Score Per Nursin RFS Level Per Nursing on Admit: 4+=Very High CHERELLE BLACK MD Oct 13, 2019 14:31
[2019-10-13 14:45] VITALS: BP 126/62
== END 2019-10-13 15:10 | disposition home or self-care (01) | DRG 193 ==
LOC: EDUNIT# 07:19 → ER 07:20 → ICU 13:35 → 4TH 10-12 08:03
PROVIDERS: ADMIT Family Medicine; ATTEND Family Medicine
DX: J18.1 Lobar pneumonia, unspecified organism (principal); J96.01 Acute respiratory failure with hypoxia; I11.0 Hypertensive heart disease with heart failure; I50.33 Acute on chronic diastolic (congestive) heart failure; I21.A1 Myocardial infarction type 2; I25.10 Atherosclerotic heart disease of native coronary artery without angina pectoris; I25.82 Chronic total occlusion of coronary artery; I25.2 Old myocardial infarction; E11.42 Type 2 diabetes mellitus with diabetic polyneuropathy; E78.00 Pure hypercholesterolemia, unspecified; F41.9 Anxiety disorder, unspecified; M32.9 Systemic lupus erythematosus, unspecified; I73.9 Peripheral vascular disease, unspecified; I65.23 Occlusion and stenosis of bilateral carotid arteries; G47.30 Sleep apnea, unspecified; M19.91 Primary osteoarthritis, unspecified site; Z95.5 Presence of coronary angioplasty implant and graft; Z79.4 Long term (current) use of insulin; Z87.11 Personal history of peptic ulcer disease; Z79.02 Long term (current) use of antithrombotics/antiplatelets; Z86.73 Personal history of transient ischemic attack (TIA), and cerebral infarction without residual deficits
CPT/HCPCS: 36415; 36600; 71045; 71275; 80048; 80053; 80061; 82805; 82962; 83605; 83735; 83874; 83880; 84484; 85025; 85027; 85379; 85610; 85730; 86141; 87040; 87804; 93005; 94640; 94660; 94664; 94760; 94761; 96361; 96365; 96375

== ENCOUNTER 2019-10-16 14:59 | Inpatient (IN) | payer OTHER ==
[~2019-10-16] VITALS: Ht 172.7 cm; Wt 90.2 kg
[~2019-10-16 14:59] MED LIST changes: +DOXY100C2 PO; +GLIP5TAB13 PO; +PRD50T PO
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
--- NOTE | 2019-10-16 15:22 | NUR ---
Patient to CT. Patient remains awake and alert, able to answer all questions apppropriately.
[2019-10-16 15:24] LABS: BASOPHILS % (AUTO) 0 % (0-10); EOSINOPHILS # (AUTO) 0.1 10^3/uL (0.0-0.3); EOSINOPHILS % (AUTO) 1 % (0-10); HEMATOCRIT 43 % (40-54); HEMOGLOBIN 14.5 G/DL (13.3-17.7); LYMPHOCYTES # (AUTO) 4.7 X 10^3 (1.0-4.0); LYMPHOCYTES % (AUTO) 26 % (12-44); MEAN CORPUSCULAR HEMOGLOBIN 28 PG (25-34); MEAN CORPUSCULAR HGB CONC 34 G/DL (32-36); MEAN CORPUSCULAR VOLUME 84 FL (80-99); MEAN PLATELET VOLUME 10.1 FL (7.4-10.4); MONOCYTES # (AUTO) 1.3 X 10^3 (0.0-1.0); MONOCYTES % (AUTO) 7 % (0-12); NEUTROPHILS # (AUTO) 12.2 X 10^3 (1.8-7.8); NEUTROPHILS % (AUTO) 66 % (42-75); PLATELET COUNT 427 10^3/uL (130-400); RED CELL DISTRIBUTION WIDTH 14.1 % (10.0-14.5); WHITE BLOOD COUNT 18.3 10^3/uL (4.3-11.0)
[2019-10-16 15:42] LABS: FIBRIN DEGRADATION PRODUCTS 0.54 UG/ML (0.00-0.49); PROTHROMBIN TIME PATIENT 13.4 SEC (12.2-14.7)
--- NOTE | 2019-10-16 15:43 | Diagnostic Imaging Report ---
PROCEDURE: CT head wo r/o stroke. TECHNIQUE: Multiple contiguous axial images were obtained through the brain without the use of intravenous contrast. Auto Exposure Controls were utilized during the CT exam to meet ALARA standards for radiation dose reduction. All CT scans use one or more of the following dose optimizing techniques: automated exposure control, MA and/or KvP adjustment based on patient size and exam type or iterative reconstruction. INDICATION: Difficulty with speech and swallowing. COMPARISON: 03/04/2019. FINDINGS: No intracranial hemorrhage, mass effect, hydrocephalus or extra-axial fluid collections. No CT evidence of territorial infarction. Age-appropriate generalized cerebral and cerebellar parenchymal volume loss. Osseous structures are intact. The paranasal sinuses and mastoids are unremarkable. IMPRESSION: No acute intracranial CT findings. Dictated by: Dictated on workstation # [id number]
[2019-10-16 15:48] LABS: ALANINE AMINOTRANSFERASE 45 U/L (0-55); ALBUMIN 4.5 GM/DL (3.2-4.5); ALKALINE PHOSPHATASE 33 U/L (40-136); BILIRUBIN,TOTAL 0.7 MG/DL (0.1-1.0); BUN/CREATININE RATIO 19; CALCIUM 9.8 MG/DL (8.5-10.1); CARBON DIOXIDE 26 MMOL/L (21-32); CHLORIDE 103 MMOL/L (98-107); CREATINE KINASE 35 U/L (30-200); CREATININE SERUM 1.17 MG/DL (0.60-1.30); GFR ESTIMATED > 60; GLUCOSE 75 MG/DL (70-105); MAGNESIUM 2.3 MG/DL (1.6-2.4); POTASSIUM 3.7 MMOL/L (3.6-5.0); SODIUM 140 MMOL/L (135-145); TOTAL PROTEIN 7.9 GM/DL (6.4-8.2)
[2019-10-16 15:49] LABS: BILIRUBIN,URINE NEGATIVE (NEGATIVE); CLARITY,URINE CLEAR; COLOR,URINE YELLOW; GLUCOSE, URINE (UA) NEGATIVE (NEGATIVE); KETONES,URINE NEGATIVE (NEGATIVE); LEUKOCYTE ESTERASE ,URINE NEGATIVE (NEGATIVE); NITRITE,URINE NEGATIVE (NEGATIVE); PH,URINE 6.5 (5-9); PROTEIN,URINE 2+ (NEGATIVE)
--- NOTE | 2019-10-16 15:50 | Diagnostic Imaging Report ---
EXAMINATION: PA chest at 03:38 p.m. INDICATION: Difficulty talking and swallowing. FINDINGS: The heart size is stable when compared to the prior exam of 10/11/2019. The prior study did note subtle opacities in the left upper lobe and raise a question of mild pneumonia/atelectasis in this area. On this exam, there still appears to be a vague area of slight increased density in the left mid lung. This finding is still concerning for mild pneumonia/atelectasis. The lungs are otherwise relatively clear. The small effusions suggested on the prior study do not seem to have changed significantly. The mediastinum is not widened. The osseous structures are intact. IMPRESSION: 1. There is still a question of mild pneumonia/atelectasis involving the left midlung. Clinical follow-up is recommended. 2. If further imaging is desired, then CT of the chest would be recommended. Dictated by: Dictated on workstation # [id number]
[2019-10-16 15:55] LABS: EOSINOPHILS % (MANUAL) 1 %; LYMPHOCYTES % (MANUAL) 30 %; MONOCYTES % (MANUAL) 6 %; NEUTROPHILS % (MANUAL) 63 %; RBC MORPH NORMAL
[2019-10-16 15:58] LABS: BACTERIA,URINE NEGATIVE /HPF; SQUAMOUS EPITHELIAL CELL,UR RARE /HPF; WBC,URINE RARE /HPF
[2019-10-16 16:00] LABS: AMPHETAMINE SCREEN, URINE NEGATIVE (NEGATIVE); BARBITURATE SCREEN URINE NEGATIVE (NEGATIVE); BENZODIAZEPINES SCREEN URINE NEGATIVE (NEGATIVE); CANNABINOID SCREEN, URINE NEGATIVE (NEGATIVE); COCAINE SCREEN URINE NEGATIVE (NEGATIVE); METHADONE STAT NEGATIVE (NEGATIVE); METHAMPHETAMINE SCREEN URINE S NEGATIVE (NEGATIVE); OPIATE SCREEN URINE NEGATIVE (NEGATIVE); OXYCODONE STAT NEGATIVE (NEGATIVE); PROPOXYPHENE STAT NEGATIVE (NEGATIVE); TRICYCLIC ANTIDEPRESSANTS SCRE NEGATIVE (NEGATIVE)
[2019-10-16 16:07] LABS: CREATINE KINASE MB 3.4 NG/ML (<6.6); TSH (THYROID ANALYZER) 3.27 UIU/ML (0.35-4.94)
--- NOTE | 2019-10-16 16:16 | NUR ---
Patient awake and alert. He denies any pain. Spouse in room. Patient sitting up on side of bed.
[2019-10-16] MEDS ORDERED: HOLD METFORMIN - RECEIVED CONTRAST 20 ML VIAL IV SCH (16:45)
[2019-10-16] MEDS ORDERED: IOHEXOL 350 MG/ML 100 ML (OMNIPAQUE 350) VIAL IV ONE (16:45)
[2019-10-16] MEDS ORDERED: NS 100 ML (IVPB) BAG IV ONE (16:45)
--- NOTE | 2019-10-16 17:19 | NUR ---
Patient sitting in bed with spouse in room. Patient denies any needs or pain. Patient's speech has improved.
[2019-10-16 17:32] VITALS: BP 164/96
--- NOTE | 2019-10-16 17:37 | Diagnostic Imaging Report ---
PROCEDURE: CT angiography of the chest with contrast. TECHNIQUE: Multiple contiguous axial images were obtained through the chest after uneventful bolus administration of intravenous contrast. 3D reconstructed CTA MIP acquisitions were also performed. Auto Exposure Controls were utilized during the CT exam to meet ALARA standards for radiation dose reduction. INDICATION: Shortness of breath. FINDINGS: The recent CTA chest exam of 10/10/2019 failed to show any sign of pulmonary embolus or of aortic dissection. On this exam, however, the pulmonary is and aorta are not fully opacified and consequently the evaluation for pulmonary embolus or an aortic dissection is limited. There is no definite defect within the pulmonary arteries to indicate a pulmonary embolus. There are areas of diminished density in the pulmonary arteries to both lower lobes. These were not clearly evident on the prior study, but these could be secondary to flow phenomena as opposed to pulmonary emboli. The previous exam did note bibasilar pneumonia/atelectasis and bilateral pleural effusions as well as a groundglass infiltrate involving the left upper lung. On this study, both lungs to seem much better aerated. There is only a small amount of residual infiltrate present in the left upper lobe. There still appears to be a small amount of fluid in each lung base. In the left midlung, there is a 8 mm nodular density (coronal series 61 of 109). In retrospect, this finding was present on the prior exam, although was obscured by pneumonia/atelectasis. This density was not evident on the previous CTA chest exam of 02/16/2017 and consequently this finding is worrisome for malignancy. The mediastinal adenopathy seen on the prior study is again evident and does not appear to have changed significantly. 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 The thyroid gland is unremarkable. The sections through the upper abdomen failed to show any sign of an acute abnormality. The bone windows are unremarkable for fracture or for destructive lesion. IMPRESSION: 1. The evaluation for pulmonary embolus and aortic dissection is limited as the pulmonary arteries and aorta are not well opacified. 2. The appearance of the chest has improved as both lungs are much better aerated and the pleural effusions seen previously have essentially resolved. 3. The 8 mm nodule in the left midlung is worrisome for malignancy. This may be too small for PET/CT to resolve. A short-term (three-month) follow-up CT chest exam should be obtained. 4. There is cardiomegaly and coronary artery disease. These results were discussed with Dr. Brandy Houser. Dictated by: Dictated on workstation # [id number]
--- NOTE | 2019-10-16 17:41 | Diagnostic Imaging Report ---
PROCEDURE: CT angiography of the head and CT angiography of the neck with and without contrast. TECHNIQUE: Contiguous noncontrast images were obtained from the skull base through the vertex. After intravenous contrast administration, helical CT angiography of the neck was performed. Source data was reformatted into 3D MIP projections. Delayed post contrast acquisition was also obtained. Auto Exposure Controls were utilized during the CT exam to meet ALARA standards for radiation dose reduction. All CT scans use one or more of the following dose optimizing techniques: automated exposure control, MA and/or KvP adjustment based on patient size and exam type or iterative reconstruction. INDICATION: Speech difficulty and dysphasia. FINDINGS: CTA head: Anterior, middle and posterior cerebral arteries are patent. There is no filling defect. No aneurysm or vascular malformation is identified. Basilar artery has a normal appearance. No abnormal contrast enhancement is detected. CTA neck: There is a three-vessel pattern of the thoracic aorta with aberrant right subclavian artery. Note is made of mediastinal adenopathy. Common carotid arteries are widely patent. There is moderate amount of atherosclerotic plaque at the carotid bulbs resulting in mild stenosis, however no high-grade stenosis or occlusion is identified. Internal carotid arteries are tortuous but otherwise unremarkable. There is left vertebral arterial dominance with very small and possibly partially occluded right vertebral artery. IMPRESSION: Left vertebral arterial dominance with very small right vertebral artery which may be occluded in the lower neck. Note is made of mediastinal adenopathy and clinical correlation would be of use. Dictated by: Dictated on workstation # [id number]
[2019-10-16] MEDS ORDERED: PIPERACILLIN SODIUM/TAZOBACTAM 4.5 GM in NS (IVPB) 100 ML IV ONE (17:45)
[2019-10-16] MEDS ORDERED: FUROSEMIDE 40 MG/4 ML INJ (LASIX) IVP ONE (17:45)
[2019-10-16] MEDS ORDERED: VANCOMYCIN INJECTION 1,000 MG in NS (IVPB) 250 ML IV SCH (17:45)
[2019-10-16] MEDS ORDERED: methylPREDNISolone 125 MG (Solu-MEDROL) VIAL IVP ONE (17:45)
[2019-10-16] MEDS ORDERED: NS (IVPB) 250 ML ONE (18:12)
[2019-10-16] MEDS ORDERED: VANCOMYCIN 1000 MG/VIAL ONE (18:12)
[2019-10-16] MEDS ORDERED: NITROGLYCERIN 2% OINT 1 GM UNIT DOSE PACKET TOP ONE (18:15)
[2019-10-16] MEDS ORDERED: ENOXAPARIN 100 MG/1 ML (LOVENOX) SYR SC ONE (18:15)
[2019-10-16 20:00] VITALS: BP 158/91
[2019-10-16 20:05] LABS: CALCIUM 9.7 MG/DL (8.5-10.1); CREATININE SERUM 1.24 MG/DL (0.60-1.30); POTASSIUM 3.4 MMOL/L (3.6-5.0)
[2019-10-16 21:05] VITALS: BP 158/91
[2019-10-16] MEDS ORDERED: LORazepam INJ 2 MG/ML (ATIVAN) VIAL IVP PRN (21:15)
[2019-10-16] MEDS ORDERED: VANCOMYCIN 750 MG/NS 250 ML IVPB IV ONE ×2 (21:30)
[2019-10-16] MEDS ORDERED: ACETAMINOPHEN 500 MG TAB (TYLENOL) PO PRN (21:30)
[2019-10-16] MEDS: LORazepam INJ 2 MG/ML (ATIVAN) VIAL IV PRN (21:30)
[2019-10-16] MEDS ORDERED: ONDANSETRON 4 MG/2 ML (SDV) Z0FRAN IV PRN (21:30)
[2019-10-16] MEDS ORDERED: morphine INJ 4 MG/ML 1 ML (VIAL/SYRINGE) IV PRN (21:30)
[2019-10-16] MEDS ORDERED: NITROGLYCERIN 0.4 MG SL TABS BTL 25'S SL PRN (21:30)
[2019-10-16] MEDS ORDERED: RT-ALBUTEROL/IPRATROPIUM 3 ML (DUONEB) VIAL INH PRN (22:30)
[2019-10-16 23:00] VITALS: BP 142/74
[2019-10-17] VITALS: BP 127/77
[2019-10-17] MEDS ORDERED: NS (IVPB) 100 ML ONE (00:06)
[2019-10-17] MEDS ORDERED: PIPERACILLIN/TAZO 4.5 GM VIAL (ZOSYN) IV ONE (00:06)
[2019-10-17] MEDS: NITROGLYCERIN 2% OINT 1 GM UNIT DOSE PACKET TOP SCH ×2 (00:35→06:23)
[2019-10-17] MEDS: PIPERACILLIN/TAZOBACTAM (BULK) 4.5 GM in NS (IVPB) 100 ML IV SCH ×3 (00:36→17:19)
[2019-10-17] MEDS: methylPREDNISolone 125 MG (Solu-MEDROL) VIAL IVP SCH ×2 (00:36→06:24)
[2019-10-17 04:00] VITALS: BP 136/74
[2019-10-17 04:13] LABS: BASOPHILS % (AUTO) 0 % (0-10); EOSINOPHILS % (AUTO) 0 % (0-10); HEMATOCRIT 42 % (40-54); HEMOGLOBIN 14.1 G/DL (13.3-17.7); LYMPHOCYTES % (AUTO) 10 % (12-44); MEAN CORPUSCULAR HEMOGLOBIN 28 PG (25-34); MEAN CORPUSCULAR HGB CONC 33 G/DL (32-36); MEAN CORPUSCULAR VOLUME 84 FL (80-99); MEAN PLATELET VOLUME 9.9 FL (7.4-10.4); MONOCYTES # (AUTO) 0.1 X 10^3 (0.0-1.0); MONOCYTES % (AUTO) 1 % (0-12); NEUTROPHILS # (AUTO) 8.4 X 10^3 (1.8-7.8); NEUTROPHILS % (AUTO) 88 % (42-75); PLATELET COUNT 386 10^3/uL (130-400); RED CELL DISTRIBUTION WIDTH 14.1 % (10.0-14.5); WHITE BLOOD COUNT 9.5 10^3/uL (4.3-11.0)
[2019-10-17 04:37] LABS: ALBUMIN 4.2 GM/DL (3.2-4.5); BILIRUBIN,TOTAL 0.8 MG/DL (0.1-1.0); CALCIUM 9.3 MG/DL (8.5-10.1); CREATININE SERUM 1.6 MG/DL (0.60-1.30); POTASSIUM 4.1 MMOL/L (3.6-5.0); TOTAL PROTEIN 7.3 GM/DL (6.4-8.2)
[2019-10-17] MEDS: inSUlin ASPART (NovoLOG) 1 UNIT/0.01 ML (CHARGE PER UNIT) SC SCH ×4 (06:24→21:02)
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
--- NOTE | 2019-10-17 07:45 | Diagnostic Imaging Report ---
EXAMINATION: Chest 1 view HISTORY: Pneumonia. CHF. COMPARISON: 10/16/2019 FINDINGS: Stable cardiomegaly with improving central pulmonary vascular congestion and interstitial edema. No focal consolidation. No large pleural effusion or pneumothorax. No acute osseous abnormalities. IMPRESSION: 1. Improving central pulmonary vascular congestion and interstitial edema. Dictated by: Dictated on workstation # [id number]
[2019-10-17 08:00] VITALS: BP 132/76
[2019-10-17] MEDS ORDERED: FUROSEMIDE 40 MG/4 ML INJ (LASIX) IV ONE (08:00)
--- NOTE | 2019-10-17 08:10 | Consultation-Cardiology ---
HPI-Cardiology Cardiology Consultation: Date of Consultation 10/17/19 Date of Admission Attending Physician Tarsha Cedeño DO Admitting Physician [place] Consulting Physician BLADIMIR ALTAMIRANO [id number] Hx Patient Social History Alcohol Use: Occasionally Uses Recreational Drug Use: Yes (PT HAS TESTED + FOR METHAMPETAMINES/AMPHETAMINES ) Drug of Choice: PT HAS TESTED + FOR AMPHETAMINES/METHAMPHETAMINES Smoking Status: Never a Smoker 2nd Hand Smoke Exposure: No Recent Foreign Travel: No Recent Infectious Disease Expo: No Hospitalization with Isolation: Denies Immunizations Up To Date Tetanus Booster (TDap): More than 5yrs Date of Pneumonia Vaccine: Apr 14, 2017 Date of Influenza Vaccine: May 08, 2019 Past Medical History PMH As described under Assessment. Family Medical History Family Medical History: He reports his mother had CAD and HTN. He reports his father had HTN and a CVA. Family History: Alcoholism 19 FATHER Cancer 19 FATHER 19 MOTHER Chest pain 19 MOTHER Family history: Arthritis (grandmother) G8 SISTER Family history: Cardiovascular disease 19 MOTHER Family history: Diabetes mellitus G8 SISTER Family history: Hypertension 19 FATHER 19 MOTHER Hearing loss 19 FATHER Heart disease 19 MOTHER Malignant neoplasm of lung 19 MOTHER Myocardial infarction 19 MOTHER Stroke 19 FATHER Allergies and Home Medications Allergies Coded Allergies: carvedilol (Unverified Allergy, Unknown, 01/22/10) codeine (Unverified Allergy, Unknown, PATIENT HAS RECEIVED MORPHINE WITHOUT ISSUE, 06/08/15) Home Medications Amlodipine Besylate 10 Mg Tablet, 10 MG PO DAILY, (Reported) Aspirin 81 Mg Tablet.dr, 81 MG PO DAILY, (Reported) Celecoxib 200 Mg Capsule, 200 MG PO BID, (Reported) Clonidine HCl 0.1 Mg Tablet, 0.1 MG PO BID, (Reported) Clopidogrel Bisulfate 75 Mg Tablet, 75 MG PO DAILY, (Reported) Doxycycline Hyclate 100 Mg Capsule, 100 MG PO BID, (Reported) PICKED UP ON 10-13-2019 #6 Fish Oil/Dha/Epa 1 Each Capsule, 1,200 MG PO DAILY, (Reported) Glipizide 5 Mg Tablet, 5 MG PO DAILY, (Reported) HAS NOT STARTED YET Insulin Aspart 100 Unit/1 Ml Susp, 28 UNIT SQ TIDAC, (Reported) Insulin Degludec 100 Unit/1 Ml Insuln.pen, 100 UNIT SQ HS, (Reported) Metoprolol Succinate 100 Mg Tab.er.24h, 100 MG PO BID, (Reported) Pantoprazole Sodium 40 Mg Tablet.dr, 40 MG PO DAILY, (Reported) Pravastatin Sodium 20 Mg Tablet, 20 MG PO HS, (Reported) HAS NOT PICKED UP YET Physical Exam-Cardiology Physical Exam Vital Signs/I&O 10/18/19 10/18/19 10/18/19 10/18/19 00:00 00:00 01:00 04:00 Temp 36.8 Pulse 78 63 Resp 23 B/P (MAP) 130/80 (97) Pulse Ox 95 99 95 O2 Delivery Nasal Cannula Nasal Cannula Nasal Cannula O2 Flow Rate 2.00 2.00 2.00 10/18/19 10/18/19 10/18/19 04:00 06:38 08:00 Temp 36.5 36.9 Pulse 79 63 70 Resp 23 18 B/P (MAP) 148/79 (102) 149/78 (101) Pulse Ox 98 98 O2 Delivery Nasal Cannula Nasal Cannula O2 Flow Rate 2.00 2.00 10/18/19 00:00 Intake Total 1485 ml Output Total 1750 ml Balance -265 ml Capillary Refill : Less Than 3 Seconds Data Review Labs Laboratory Tests 10/17/19 11:27: Glucometer 295H 10/17/19 12:29: 10/17/19 17:22: Glucometer 304H 10/17/19 20:57: Glucometer 264H 10/18/19 03:36: Glucometer 125H 10/18/19 04:15: White Blood Count 17.2H, Red Blood Count 4.82, Hemoglobin 13.8, Hematocrit 41, Mean Corpuscular Volume 84, Mean Corpuscular Hemoglobin 29, Mean Corpuscular Hemoglobin Concent 34, Red Cell Distribution Width 13.6, Platelet Count 341, Mean Platelet Volume 10.2, Neutrophils (%) (Auto) 75, Lymphocytes (%) (Auto) 16, Monocytes (%) (Auto) 8, Eosinophils (%) (Auto) 0, Basophils (%) (Auto) 0, Neutrophils # (Auto) 13.0H, Lymphocytes # (Auto) 2.8, Monocytes # (Auto) 1.5H, Eosinophils # (Auto) 0.0, Basophils # (Auto) 0.0, Sodium Level 139, Potassium Level 3.4L, Chloride Level 100, Carbon Dioxide Level 25, Anion Gap 14, Blood Urea Nitrogen 32H, Creatinine 1.45H, Estimat Glomerular Filtration Rate 49, BUN/Creatinine Ratio 22, Glucose Level 135H, Calcium Level 8.7, Corrected Calcium 8.9, Total Bilirubin 0.6, Aspartate Amino Transf (AST/SGOT) 20, Alanine Aminotransferase (ALT/SGPT) 45, Alkaline Phosphatase 22L, Total Protein 6.8, Albumin 3.8 10/18/19 08:17: Glucometer 71 10/18/19 08:53: Blood Gas Puncture Site RT RAD, Blood Gas Patient Temperature 36.9, Arterial Blood pH 7.44H, Arterial Blood Partial Pressure CO2 47H, Arterial Blood Partial Pressure O2 94H, Arterial Blood HCO3 32H, Arterial Blood Total CO2 33.2H, Arterial Blood Oxygen Saturation 98, Arterial Blood Base Excess 7.5H, Al Test YES-POS, Blood Gas Ventilator Setting NO, Blood Gas Inspired Oxygen 3 L Microbiology 10/16/19 Blood Culture - Preliminary, Resulted No growth A/P-Cardiology Assessment/Admission Diagnosis Recent admission pneumonia CAD - Last card cath on 09/27/19: Coronary artery disease consisting of severe distal disease of the terminal left anterior descending where the vessel is of a very small caliber and not amenable to intervention. The mid left anterior descending artery has a widely patent stented segment (known to be overlapping Promus 3.0 x 12 and 2.25 x 16 mm stents, the overlap of which has been treated with a 3 mm balloon). The right coronary artery exhibits a chronic total occlusion within the stented distal part of the vessel and attempts at percutane ous intervention to this vessel today were unsuccessful. The left circumflex artery exhibits mild plaque. Mildly elevated left ventricular end-diastolic pressure. Labile hypertension - currently not well controlled Low TSH in Jul 2015, being followed by his pcp H/o PUD, based on endoscopy of 06/08/[address] Minaya that showed multiple gastric and duodenal ulcers. Anxiety Echo of 02/17/17: showed LVEF 55-65%, mildly dilated LA, hypokinesis of apical myocardium Maturity onset diabetes mellitus, being managed by Dr. Umanzor. Hyperlipidemia - intolerant to statin (muscle discomfort) Diagnosed with SLE by his pcp in early 2017 (managed by pcp) Gout. Carotid arterial disease. CTA of carotids on 09/20/15 showed 50% prox R ICA and less than 50% L ICA bulb stenoses. Mild carotid art disease on carotid u/s of 10/17/16 Peripheral arterial disease. S/p bilateral leg artery interventions by Dr Layton in Jul and Aug 2014. No leg claudication since Clinical Quality Measures DVT/VTE Risk/Contraindication: Risk Factor Score Per Nursin RFS Level Per Nursing on Admit: 2=Moderate BLADIIMR MCLAIN Oct 17, 2019 08:10
[2019-10-17] MEDS: ASPIRIN E.C. 81 MG (ECOTRIN) TAB PO SCH (08:15)
--- NOTE | 2019-10-17 08:31 | NUR ---
VANCOMYCIN DOSING SCR 1.6; ADJ BW 76; CRCL ~ 51; BOLUS VANC 20 MG/KG X 89 KG ~ 1750 MG (GIVEN LAST NIGHT) THEN VANC 15 MG/KG ~ 1250 MG Q24H CHECK TROUGH LEVEL 10/18 1800 HOLD DOSE AND CONTACT PHARMACY IF LEVEL IS GREATER THAN 20
[2019-10-17] MEDS: RT-ALBUTEROL/IPRATROPIUM 3 ML (DUONEB) VIAL INH SCH ×2 (08:52→21:06)
[2019-10-17] MEDS ORDERED: ENOXAPARIN 100 MG/1 ML (LOVENOX) SYR SC SCH (09:00)
[2019-10-17] MEDS ORDERED: meTOprolol SUCCINATE 100 MG (TOPROL XL) TAB PO NR (09:30)
[2019-10-17] MEDS ORDERED: CLOPIDOGREL 75 MG (PLAVIX) TABLET PO NR (09:30)
--- NOTE | 2019-10-17 09:54 | Consultation-Cardiology ---
HPI-Cardiology Cardiology Consultation: Date of Consultation 10/17/19 Time Seen by a Provider: 09:00 Date of Admission Attending Physician Tarsha Cedeño DO Admitting Physician [place] Consulting Physician RANJAN CABRERA MD, MA, FACP, FACC, FSCAI, CCDS HPI: Chief Complaint: CC: Difficulty forming words HPI 64 yo man admitted through ER last night after he presented with difficulty in forming words. He thinks he had had poor sleep and was very tired and that was the reason for his speech difficulty. No focal weakness. Now that he is rested, he feels better No cp or palp or syncope Has chronic mod exertional shortness of breath, unchanged Denies fever or chill Notes gen malaise and weakness Denies leg swelling Review of Systems-Cardiology Review of Systems Constitutional: malaise, tiredness; No weight loss, No weight gain Eyes: No vision change Ears/Nose/Throat: No ear discharge, No nasal drainage, No recent hearing loss Respiratory: As described under HPI Cardiovascular: As described under HPI Gastrointestinal: No constipation, No diarrhea, No nausea, No vomiting Genitourinary: No dysuria, No urine frequency changes Musculoskeletal: back pain (chronic) Skin: No rash, No ulcerations Psychiatric/Neurological: No seizure, No focal weakness, No syncope Hematologic: No bleeding abnormalities AZN-Yqguny-Qrgetk Hx Patient Social History Alcohol Use: Occasionally Uses Recreational Drug Use: Yes (PT HAS TESTED + FOR METHAMPETAMINES/AMPHETAMINES ) Drug of Choice: PT HAS TESTED + FOR AMPHETAMINES/METHAMPHETAMINES Smoking Status: Never a Smoker 2nd Hand Smoke Exposure: No Recent Foreign Travel: No Recent Infectious Disease Expo: No Hospitalization with Isolation: Denies Immunizations Up To Date Tetanus Booster (TDap): More than 5yrs Date of Pneumonia Vaccine: Apr 14, 2017 Date of Influenza Vaccine: May 08, 2019 Past Medical History PMH As described under Assessment. Family Medical History Family Medical History: He reports his mother had CAD and HTN. He reports his father had HTN and a CVA. Family History: Alcoholism 19 FATHER Cancer 19 FATHER 19 MOTHER Chest pain 19 MOTHER Family history: Arthritis (grandmother) G8 SISTER Family history: Cardiovascular disease 19 MOTHER Family history: Diabetes mellitus G8 SISTER Family history: Hypertension 19 FATHER 19 MOTHER Hearing loss 19 FATHER Heart disease 19 MOTHER Malignant neoplasm of lung 19 MOTHER Myocardial infarction 19 MOTHER Stroke 19 FATHER Allergies and Home Medications Allergies Coded Allergies: carvedilol (Unverified Allergy, Unknown, 01/22/10) codeine (Unverified Allergy, Unknown, PATIENT HAS RECEIVED MORPHINE WITHOUT ISSUE, 06/08/15) Home Medications Amlodipine Besylate 10 Mg Tablet, 10 MG PO DAILY, (Reported) Aspirin 81 Mg Tablet.dr, 81 MG PO DAILY, (Reported) Celecoxib 200 Mg Capsule, 200 MG PO BID, (Reported) Clonidine HCl 0.1 Mg Tablet, 0.1 MG PO BID, (Reported) Clopidogrel Bisulfate 75 Mg Tablet, 75 MG PO DAILY, (Reported) Doxycycline Hyclate 100 Mg Capsule, 100 MG PO BID Prescribed by: CHERELLE BLACK on 10/13/19 1218 Fish Oil/Dha/Epa 1 Each Capsule, 1,200 MG PO DAILY, (Reported) Gabapentin 800 Mg Tablet, 800 MG PO TID, (Reported) LAST FILLED #90 07-20-19 Glipizide 5 Mg Tablet, 5 MG PO DAILY, (Reported) HAS NOT STARTED YET Insulin Aspart 100 Unit/1 Ml Susp, 28 UNIT SQ TIDAC, (Reported) Insulin Degludec 100 Unit/1 Ml Insuln.pen, 100 UNIT SQ HS, (Reported) Metoprolol Succinate 100 Mg Tab.er.24h, 200 MG PO DAILY, (Reported) Pantoprazole Sodium 40 Mg Tablet.dr, 40 MG PO DAILY, (Reported) Pravastatin Sodium 20 Mg Tablet, 20 MG PO HS, (Reported) HAS NOT PICKED UP YET Prednisone 50 Mg Tab, 50 MG PO DAILY Prescribed by: CHERELLE BLACK on 10/13/19 1218 Patient Home Medication List Home Medication List Reviewed: Yes Physical Exam-Cardiology Physical Exam Vital Signs/I&O 10/16/19 10/17/19 10/17/19 10/17/19 23:00 00:00 00:00 01:00 Temp 36.9 36.4 Pulse 93 81 76 Resp 16 B/P (MAP) 127/77 (94) Pulse Ox 96 94 93 O2 Delivery Room Air Room Air 10/17/19 10/17/19 10/17/19 10/17/19 04:00 04:00 06:40 08:00 Temp 36.3 36.6 Pulse 83 96 78 Resp 18 18 B/P (MAP) 136/74 (94) 132/76 (94) Pulse Ox 95 94 95 O2 Delivery Room Air Room Air Room Air 10/17/19 10/17/19 10/17/19 08:00 08:52 09:00 Pulse Ox 95 91 96 O2 Delivery Room Air Room Air Room Air 10/17/19 00:00 Intake Total 350 ml Output Total 2100 ml Balance -1750 ml Capillary Refill : Less Than 3 Seconds Constitutional: AAO x 3, well-developed, well-nourished HEENT: PERRL, EOMI; No xanthelasmas are seen Neck: carotid pulses are 2 + bilaterally, with good upstrokes Respiratory: No accessory muscle use; other (good bilat air entry, a few scattered wheezes, somewhat prolonged exp) Cardiovascular: regular rate-rhythm, S1 and S2, systolic murmur (soft LYDIA at card base) Gastrointestinal: No tender; soft; No guarding, No rebound; audible bowel sounds Extremities: No clubbing, No cyanosis, No significant edema Neurologic/Psychiatric: oriented x 3, other (moves all limbs equally) Skin: No rash on exposed areas, No ulcerations on exposed areas Data Review Labs Laboratory Tests 10/16/19 15:15: Glucometer 77 10/16/19 15:17: White Blood Count 18.3H, Red Blood Count 5.12, Hemoglobin 14.5#, Hematocrit 43, Mean Corpuscular Volume 84, Mean Corpuscular Hemoglobin 28, Mean Corpuscular Hemoglobin Concent 34, Red Cell Distribution Width 14.1, Platelet Count 427H, Mean Platelet Volume 10.1, Neutrophils (%) (Auto) 66, Lymphocytes (%) (Auto) 26, Monocytes (%) (Auto) 7, Eosinophils (%) (Auto) 1, Basophils (%) (Auto) 0, Neutrophils # (Auto) 12.2H, Lymphocytes # (Auto) 4.7H, Monocytes # (Auto) 1.3H, Eosinophils # (Auto) 0.1, Basophils # (Auto) 0.0, Neutrophils % (Manual) 63, Lymphocytes % (Manual) 30, Monocytes % (Manual) 6, Eosinophils % (Manual) 1, Blood Morphology Comment NORMAL, Prothrombin Time 13.4, INR Comment 1.0, Activated Partial Thromboplast Time 27, D-Dimer 0.54H, Sodium Level 140, Potassium Level 3.7, Chloride Level 103, Carbon Dioxide Level 26, Anion Gap 11, Blood Urea Nitrogen 22H, Creatinine 1.17, Estimat Glomerular Filtration Rate > 60, BUN/Creatinine Ratio 19, Glucose Level 75, Calcium Level 9.8, Corrected Calcium 9.4, Magnesium Level 2.3, Total Bilirubin 0.7, Aspartate Amino Transf (AST/SGOT) 28, Alanine Aminotransferase (ALT/SGPT) 45, Alkaline Phosphatase 33L, Total Creatine Kinase 35, Creatine Kinase MB 3.4, Myoglobin 52.6, Troponin I 0.156H, B-Type Natriuretic Peptide 835.1H, Total Protein 7.9, Albumin 4.5, TSH [place] Testing 3.27, Serum Alcohol < 10 10/16/19 15:43: Urine Color YELLOW, Urine Clarity CLEAR, Urine pH 6.5, Urine Specific [place] 1.020, Urine Protein 2+H, Urine Glucose (UA) NEGATIVE, Urine Ketones NEGATIVE, Urine Nitrite NEGATIVE, Urine Bilirubin NEGATIVE, Urine Urobilinogen 0.2, Urine Leukocyte Esterase NEGATIVE, Urine RBC (Auto) NEGATIVE, Urine RBC NONE, Urine WBC RARE, Urine Squamous Epithelial Cells RARE, Urine Crystals NONE, Urine Bacteria NEGATIVE, Urine Casts NONE, Urine Mucus SMALLH, Urine Culture Indicated NO, Urine Opiates Screen NEGATIVE, Urine Oxycodone Screen NEGATIVE, Urine M ethadone Screen NEGATIVE, Urine Propoxyphene Screen NEGATIVE, Urine Barbiturates Screen NEGATIVE, Ur Tricyclic Antidepressants Screen NEGATIVE, Urine Phencyclidine Screen NEGATIVE, Urine Amphetamines Screen NEGATIVE, Urine Methamphetamines Screen NEGATIVE, Urine Benzodiazepines Screen NEGATIVE, Urine Cocaine Screen NEGATIVE, Urine Cannabinoids Screen NEGATIVE 10/16/19 19:30: Sodium Level 139, Potassium Level 3.4L, Chloride Level 102, Carbon Dioxide Level 22, Anion Gap 15H, Blood Urea Nitrogen 22H, Creatinine 1.24, Estimat Glomerular Filtration Rate 59, BUN/Creatinine Ratio 18, Glucose Level 69L, Calcium Level 9.7 10/16/19 21:26: Glucometer 119H 10/17/19 03:50: White Blood Count 9.5, Red Blood Count 5.02, Hemoglobin 14.1, Hematocrit 42, Mean Corpuscular Volume 84, Mean Corpuscular Hemoglobin 28, Mean Corpuscular Hemoglobin Concent 33, Red Cell Distribution Width 14.1, Platelet Count 386, M paris Platelet Volume 9.9, Neutrophils (%) (Auto) 88H, Lymphocytes (%) (Auto) 10L, Monocytes (%) (Auto) 1, Eosinophils (%) (Auto) 0, Basophils (%) (Auto) 0, Neutrophils # (Auto) 8.4H, Lymphocytes # (Auto) 1.0, Monocytes # (Auto) 0.1, Eosinophils # (Auto) 0.0, Basophils # (Auto) 0.0, Sodium Level 135, Potassium Level 4.1, Chloride Level 96L, Carbon Dioxide Level 22, Anion Gap 17H, Blood Urea Nitrogen 27H, Creatinine 1.60H, Estimat Glomerular Filtration Rate 44, BUN/Creatinine Ratio 17, Glucose Level 355H, Calcium Level 9.3, Corrected Calcium 9.1, Total Bilirubin 0.8, Aspartate Amino Transf (AST/SGOT) 36H, Alanine Aminotransferase (ALT/SGPT) 55, Alkaline Phosphatase 30L, Total Protein 7.3, Albumin 4.2, Triglycerides Level 183H, Cholesterol Level 190, LDL Cholesterol Direct 120, VLDL Cholesterol 37, HDL Cholesterol 50 10/17/19 06:20: Glucometer 337H A/P-Cardiology Assessment/Admission Diagnosis Transient dysphasia/dysarthria, being evaluated and managed by the Hospitalist Service Minimal elevation of troponin, probably type-2 MO due to recent pneumonia and chronic diastolic dysfunction of LV. There is no evidence of type I MO Elevated d-Dimer at presentation. Karis Payne is evaluating for PE Admission in early Oct 2019 with pneumonia CAD - Last card cath on 09/27/19: Coronary artery disease consisting of severe distal disease of the terminal left anterior descending where the vessel is of a very small caliber and not amenable to intervention. The mid left anterior descending artery has a widely patent stented segment (known to be overlapping Promus 3.0 x 12 and 2.25 x 16 mm stents, the overlap of which has previously been treated with a 3 mm balloon). The right coronary artery exhibits a chronic total occlusion within the stented distal part of the vessel and attempts at percutaneous intervention to this vessel today were unsuccessful. The left circumflex artery exhibits mild plaque. Mildly elevated left ventricular end- diastolic pressure. Labile hypertension - currently not well controlled Low TSH in Jul 2015, being followed by his pcp H/o PUD, based on endoscopy of 06/08/[address] Minaya that showed multiple gastric and duodenal ulcers. Anxiety Echo of 02/17/17: showed LVEF 55-65%, mildly dilated LA, hypokinesis of apical myocardium Maturity onset diabetes mellitus, being managed by Dr. Umanzor. Hyperlipidemia - intolerant to statin (muscle discomfort) Diagnosed with SLE by his pcp in early 2017 (managed by pcp) Gout. Carotid arterial disease. CTA of carotids on 09/20/15 showed 50% prox R ICA and less than 50% L ICA bulb stenoses. Mild carotid art disease on carotid u/s of 10/17/16 Peripheral arterial disease. S/p bilateral leg artery interventions by Dr Layton in Jul and Aug 2014. No leg claudication since Discussion and Recomendations * Continue previous cardiac regimen * D/c nitropaste * Repeat echo * D/c treatment-dose enoxaparin one PE has been excluded by the Pulm Svce * Advised to refrain from tobacco use * Monitor labs Clinical Quality Measures DVT/VTE Risk/Contraindication: Risk Factor Score Per Nursin RFS Level Per Nursing on Admit: 2=Moderate RANJAN CABRERA MD FACP FAC CCDS Oct 17, 2019 09:54
[2019-10-17] MEDS ORDERED: ENOXAPARIN 40 MG/0.4 ML (LOVENOX) SYR SQ SCH (10:00)
[2019-10-17] MEDS: LORazepam INJ 2 MG/ML (ATIVAN) VIAL IV PRN ×2 (10:40→21:24)
--- NOTE | 2019-10-17 10:55 | NUR ---
Pt called RN to room, pt found in respiratory distress trying to cough but unable too and color turning bryant. Pt sat up quickly in bed, and oxygen applied. Pt was able to clear flem eventually after about 30 seconds. Pt had taken a pill 30 minutes prior and stated that he could still taste it but was not choking on it. Pt was just unable to cough well enough to clear trachea at this time. Dr. Cedeño notified and med student responded to room. After pt was able to clear throat, Vitals taken and stable after pt able to clear trachea.
[2019-10-17 11:22] VITALS: BP 136/72
--- NOTE | 2019-10-17 11:35 | NUR ---
Pastoral care visit, Pt requested a janitorial maintenance worker, I phoned [facility] and they advised they would send a Loan Processor out.
[2019-10-17] MEDS: PYRIDOSTIGMINE 60 MG TAB (MESTINON) NON-FORMULARY PO SCH ×2 (12:03→21:03)
--- NOTE | 2019-10-17 12:59 | Diagnostic Imaging Report ---
PROCEDURE: US Venous Lower Ext Eusebio. TECHNIQUE: Multiple real-time grayscale images were obtained over the lower extremities in various projections, bilaterally. Additional duplex Doppler and color Doppler images were also obtained. INDICATION: Dyspnea, weakness. COMPARISON: Non available. FINDINGS: The bilateral common femoral, femoral and popliteal veins are patent by color doppler imaging and without DVT. Visualized proximal aspects of the greater saphenous, deep femoral, posterior tibial and peroneal veins are also patent. All of the evaluated deep venous structures demonstrate normal compressibility and waveform augmentation where applicable. IMPRESSION: No deep venous thrombosis in either of the lower extremities. Dictated by: Dictated on workstation # [id number]
--- NOTE | 2019-10-17 13:11 | ST Dysphagia Evaluation ---
Speech Evaluation-General Medical Diagnosis Post pneumonia Onset Date: Oct 16, 2019 Therapy Diagnosis Therapy Diagnosis: Oropharyngeal Dysphagia, Dysarthria Precautions Precautions: Aspiration Referral Referring Physician: Dr. Leigh Reason for Referral: Evaluation/Treatment Medical History Pertinent Medical History: ASVD, CAD, DM, HTN, [place], PVD Reviewed History: Yes Speech PLF/Current-Dysphagia Prior Level of Function Patient lived in his own home where he was independent for his daily needs/wan ts. Subjective Patient was pleasant with Bedside Dysphagia Evaluation. Patient's speech is slightly slurred with decreased intelligibility at 80%. Cognitive Status Patient Orientation: Person, Place, Time, Situation Patient appears to be oriented to all concepts. Oral Motor Skills Dentition: Natural, Tumbled, Stained Current Food Consistancy: Regular Ability to Follow Directions: Good Patient's level of intake has been between mechanical soft and regular, however he has not eaten the actual regular served. He has opted to pick the mechanical soft textures off the regular tray. ie: the gravy and vegetables out of the chicken pot pie. He did not attempt the salad or bread. Oral Expression Ability: Mild Impairment Voice Voice Phonatory-Based Quality: Breathy, Weak Voice Pitch: Mildly Low Voice Loudness: Mildly Soft/Quiet Face Facial Symmetry: Symmetrical Oral-Facial Assessment Oral-Facial Dentition: Normal Labial Seal Description: Weak Smile: Reduced ROM Puff Cheeks: Reduced Strength Lingual Protrusion: Normal Lingual ROM: Normal Lingual Strength: Normal Pharynx Velopharyngeal Move.: Normal Volitional Dry Swallow: Yes Voluntary Cough: Yes Can Clear Throat Volitionally: Yes Not observed, nursing reports he is having difficulty with phlegm mgmt. Dysphagia Evaluation Consistencies Presented: Regular, Thin Liquid, Mechanical Soft, Pureed Oral Phase: Reduced Oral Transit Pharyngeal Phase: Decreased A/P Bolus Transit, Multiple Swallow Attempts, Clears Throat, Delayed Swallow Funct. Velo/Pharyngeal Symptom: Clears Throat Dietary Recommendations: Mechanical Soft Liquid Recommendations: Thin Swallowing Precautions: Alternate Liquids/Solids, Double Swallow, Decreased Bolus 1/2 Tsp, Liquids from Straw, Small Bites and Sips, Sitting Upright 90 Degrees, Sitting 90 Degrees 30 Post Intake Dysphagia Evaluation Summary Patient was readmitted following a recent admit for pneumonia. Patient was evaluated at bedside for swallow function. Patient is reported by nursing to have moments of being okay with swallow with other times of difficulty swallowing and management of phlegm. Patient was presented small sips of thin via straw without difficulty. Patient was also given 1/2 tsp of puree and mechanical soft without difficulty. Regular was too difficult to manage and had to spit out the bite of cubed chicken. Patient states he has times of swallowing difficulty following times of not sleeping. Patient did test positive for Methamphetamines. Patient's recommended diet level is Dysphagia II with thin liquids at this time. Nurse Tomeka has been advised of recs. Speech Short Term Goals Short Term Goals Short Term Goals 1) Patient will tolerate least restrictive diet level without s/s of aspiration at 90%. 2) Patient will utilize compensatory strategies as trained at 90% with minimal cuing. Speech Busboy Goals Busboy Goals Patient will maintain adequate nutrition/hydration via safe effective swallow function. Speech-Plan Patient/Family Goals Patient/Family Goals: Patient plans on returning home upon hospital discharge. Treatment Plan Speech Therapy Treatment Plan: Continue Plan of Care Treatment Duration: Oct 25, 2019 Frequency: 3 times per week Estimated Hrs Per Day: .25 hour per day Rehab Potential: Fair Barriers to Learning: Patient's medical status Pt/Family Agrees to Plan: Yes Safety Risks/Education Teaching Recipient: Patient Teaching Methods: Demonstration, Discussion Response to Teaching: Verbalize Understanding, Return Demonstration Education Topics Provided: Safety of oral intake and diet level Time Speech Therapy Time In: 12:40 Speech Therapy Time Out: 12:55 Total Billed Time: 15 Billed Treatment Time Colt JUSTINA Banegas Oct 17, 2019 13:11
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
--- NOTE | 2019-10-17 13:37 | Diagnostic Imaging Report ---
INDICATION: Possible aspiration. TECHNIQUE: A frontal chest was obtained at 1:15 PM and compared to 10/17/2019 at 5:20 AM. FINDINGS: The heart is mildly enlarged. There is no new infiltrate, pneumothorax, or pleural fluid. IMPRESSION: Cardiomegaly with no new abnormality in the chest. Dictated by: Dictated on workstation # [id number]
--- NOTE | 2019-10-17 15:48 | Diagnostic Imaging Report ---
INDICATION: Possible aspiration. TECHNIQUE: Ventilation images were performed after the administration of 41.7 mCi of technetium DTPA. Perfusion imaging was performed after administering 5.43 mcg of technetium labeled MAA. FINDINGS: Both ventilation and perfusion images demonstrate homogeneous uptake of isotope. There are no segmental or subsegmental perfusion defects to suggest pulmonary embolism. IMPRESSION: Low probability for pulmonary embolism. Dictated by: Dictated on workstation # [id number]
[2019-10-17 16:00] VITALS: BP 142/76
[2019-10-17] MEDS ORDERED: DOXY100C2 PO (16:36)
--- NOTE | 2019-10-17 16:37 | NUR ---
SPOKE WITH THE PT WELL GOING THRU THE EXT MED HISTORY TO COMPLETE THE MED REC. PT WAS DISCHARGED ON 10-13-2019 AND WAS READMITTED ON 10-16-2019 I WENT THRU THE PREVIOUS MED REC AND NOTES AND THE ONLY THING THAT WAS UPDATED WAS THE ANTIBIOTIC (LEFT THOSE ON) BUT THE PT IS FINISHED WITH THE PREDNISONE SO THAT WAS TAKEN OFF. PT HAD PREVIOUSLY SAID HE TOOK GABAPENTIN BUT WAS OUT AND HAD NOT PICKED UP A REFILL. WHEN I SPOKE TO THE PT THIS TIME IS SAID SINCE ITS BEEN SO LONG SINCE HES HAD IT HE'S NOT GOING TO TAKE IT AGAIN.
[2019-10-17] MEDS ORDERED: VANCOMYCIN 1250 MG/NS 250 ML IVPB IV SCH ×2 (19:00)
[2019-10-17 20:00] VITALS: BP 148/74
[2019-10-17] MEDS ORDERED: INSULIN DEGLUDEC 100 UNIT SQ SCH (21:00)
[2019-10-17] MEDS: cloNIDine 0.1 MG (CATAPRES) TAB PO SCH (21:03)
[2019-10-17] MEDS: meTOprolol SUCCINATE 100 MG (TOPROL XL) TAB PO SCH (21:03)
[2019-10-17] MEDS: ENOXAPARIN 100 MG/1 ML (LOVENOX) SYR SC SCH (21:04)
[2019-10-18] VITALS (11 sets, daily range): BP systolic 130–188; BP diastolic 75–102
[2019-10-18] MEDS: PIPERACILLIN/TAZOBACTAM (BULK) 4.5 GM in NS (IVPB) 100 ML IV SCH ×3 (00:19→16:30)
--- NOTE | 2019-10-18 04:07 | Pulmonary Progress Note ---
Subjective Time Seen by a Provider: 04:04 Subjective/Events-last exam No complications noted. Sepsis Event Evaluation Height, Weight, BMI Height: 5'8.00" Weight: 205lbs. 0.0oz. 92.287104qx; 29.67 BMI Method:Stated Exam Exam Vital Signs Date Time Temp Pulse Resp B/P (MAP) Pulse Ox O2 Delivery O2 Flow Rate FiO2 10/18/19 00:00 36.8 78 23 130/80 (97) 99 Nasal Cannula 2.00 10/18/19 00:00 95 Nasal Cannula 2.00 10/17/19 21:03 85 Room Air 10/17/19 21:00 96 Nasal Cannula 2.00 10/17/19 20:00 36.9 77 16 148/74 (98) 94 Room Air 10/17/19 20:00 95 Room Air 10/17/19 19:00 91 10/17/19 16:00 36.6 80 18 142/76 (98) 95 Room Air 10/17/19 15:44 96 Room Air 10/17/19 12:50 80 10/17/19 11:22 37.0 88 22 136/72 (93) 91 Room Air 10/17/19 11:18 96 Room Air 10/17/19 09:00 96 Room Air 10/17/19 08:52 91 Room Air 10/17/19 08:00 95 Room Air 10/17/19 08:00 36.6 78 18 132/76 (94) 95 Room Air 10/17/19 06:40 96 I & O 10/18/19 07:00 Intake Total 1485 ml Output Total 1750 ml Balance -265 ml Height & Weight Height: 5'8.00" Weight: 205lbs. 0.0oz. 92.734367rz; 29.67 BMI Method:Stated General Appearance: No Apparent Distress, WD/WN, Chronically ill HEENT: PERRL/EOMI, Moist Mucous Membranes, Other (difficulty speaking the longer the conversation) Neck: Full Range of Motion, Normal Inspection, Non Tender Respiratory: Chest Non Tender, No Accessory Muscle Use, No Respiratory Distress, Decreased Breath Sounds, Wheezing Cardiovascular: Regular Rate, Rhythm, No Edema, No Gallop, No JVD, No Murmur, Normal Peripheral Pulses Capillary Refill: Less Than 3 Seconds Extremity: Normal Capillary Refill, Normal Inspection, Normal Range of Motion, Non Tender, No Calf Tenderness, No Pedal Edema Neurologic/Psychiatric: Alert, Oriented x3, No Motor/Sensory Deficits, Normal Mood/Affect Skin: Normal Color, Warm/Dry Lymphatic: No Adenopathy Results Lab Laboratory Tests 10/16/19 15:17 10/16/19 19:30 10/17/19 03:50 Assessment/Plan Assessment/Plan SOB - doubt PE - Bilateral dopplers -- neg -V/Q scan neg -limited CTA of chest reviewed Dysphagia/dysarthria -Dr. Cedeño is ruling out myasthenia Gravis -No visual changes -No extremity weakness -Improved Hypokalemia -replace CHF/CAD -Cardiology is consulted lung nodule 8mm L lung -Will need repeat CT of chest in 3mo KAYLAN FRANKS DO Oct 18, 2019 04:07
[2019-10-18 04:41] LABS: BASOPHILS % (AUTO) 0 % (0-10); EOSINOPHILS % (AUTO) 0 % (0-10); HEMATOCRIT 41 % (40-54); HEMOGLOBIN 13.8 G/DL (13.3-17.7); LYMPHOCYTES # (AUTO) 2.8 X 10^3 (1.0-4.0); LYMPHOCYTES % (AUTO) 16 % (12-44); MEAN CORPUSCULAR HEMOGLOBIN 29 PG (25-34); MEAN CORPUSCULAR HGB CONC 34 G/DL (32-36); MEAN CORPUSCULAR VOLUME 84 FL (80-99); MEAN PLATELET VOLUME 10.2 FL (7.4-10.4); MONOCYTES # (AUTO) 1.5 X 10^3 (0.0-1.0); MONOCYTES % (AUTO) 8 % (0-12); NEUTROPHILS % (AUTO) 75 % (42-75); PLATELET COUNT 341 10^3/uL (130-400); RED CELL DISTRIBUTION WIDTH 13.6 % (10.0-14.5); WHITE BLOOD COUNT 17.2 10^3/uL (4.3-11.0)
[2019-10-18 05:03] LABS: ALBUMIN 3.8 GM/DL (3.2-4.5); BILIRUBIN,TOTAL 0.6 MG/DL (0.1-1.0); CALCIUM 8.7 MG/DL (8.5-10.1); CREATININE SERUM 1.45 MG/DL (0.60-1.30); POTASSIUM 3.4 MMOL/L (3.6-5.0); TOTAL PROTEIN 6.8 GM/DL (6.4-8.2)
[2019-10-18] MEDS: inSUlin ASPART (NovoLOG) 1 UNIT/0.01 ML (CHARGE PER UNIT) SC SCH ×2 (06:20→11:45)
[2019-10-18] MEDS: inSUlin ASPART (NovoLOG) 1 UNIT/0.01 ML (CHARGE PER UNIT) SQ SCH ×4 (07:54→16:28)
[2019-10-18] MEDS: PANTOPRAZOLE 40 MG (PROTONIX) TAB PO SCH ×2 (07:54→10:12)
[2019-10-18] MEDS: ASPIRIN E.C. 81 MG (ECOTRIN) TAB PO SCH ×2 (07:54→10:11)
[2019-10-18] MEDS: CLOPIDOGREL 75 MG (PLAVIX) TABLET PO SCH ×2 (07:55→10:12)
[2019-10-18] MEDS: amLODIPine 10 MG (NORVASC) TAB PO SCH ×2 (07:55→10:12)
[2019-10-18] MEDS: cloNIDine 0.1 MG (CATAPRES) TAB PO SCH ×2 (07:55→10:11)
[2019-10-18] MEDS: PYRIDOSTIGMINE 60 MG TAB (MESTINON) NON-FORMULARY PO SCH ×3 (07:56→13:10)
[2019-10-18] MEDS: ENOXAPARIN 100 MG/1 ML (LOVENOX) SYR SC SCH (07:56)
[2019-10-18] MEDS: POTASSIUM CL 10MEQ/50ML IVPB 50 ML IV SCH ×4 (08:17→12:34)
--- NOTE | 2019-10-18 08:18 | NUR ---
This nurse called at 08 to update her on patient, patient is having difficulty talking, he is unable to grasp his lips around a straw. Patient writes down on a piece of paper to me that his symptoms are the worse than they have been. No new orders received at this time. 821 at bedside. Order received for Stat MRA with contrast of the head and neck, apply end tidal co2, obtain an ABG, to give 125mg solumedrol IV now and Q4H, NPO and to transfer patient to ICU. 926 this nurse called , this nurse with patient attempting to get MRA. Patient unable to lie flat for the MRA, his oxygen saturation went down to 93% and he was SOB. Patient has 3L o2 per NC on. pt placed on 6L o2 per NC and a second attempt to lie flat was made, patient unable to tolerate. asked me to cancel MRA orders. Patient brought back up to ICU with this nurse and central services tech via wheel chair, patient taken to room CU10 where he was transferred to. This nurse moved all of patients belongings from room 510 to CU10. This nurse showed patient belongings after bringing them to his room and he agreed that all of his belongings were there and there was nothing that I had missed.
[2019-10-18] MEDS: RT-ALBUTEROL/IPRATROPIUM 3 ML (DUONEB) VIAL INH SCH ×2 (08:24→18:15)
[2019-10-18] MEDS: meTOprolol SUCCINATE 100 MG (TOPROL XL) TAB PO SCH ×2 (08:24→10:12)
[2019-10-18] MEDS ORDERED: meTOprolol SUCCINATE 100 MG (TOPROL XL) TAB PO SCH (09:00)
[2019-10-18] MEDS ORDERED: CLOPIDOGREL 75 MG (PLAVIX) TABLET PO SCH (09:00)
[2019-10-18] MEDS ORDERED: ASPIRIN E.C. 81 MG (ECOTRIN) TAB PO SCH (09:00)
[2019-10-18 09:02] LABS: ABG BASE EXCESS 7.5 MMOL/L (-2.5-2.5); ABG OXYGEN SATURATION 98 % (94-100); ABG PCO2 47 MMHG (35-45); ABG PH 7.44 (7.37-7.43); ABG PO2 94 MMHG (79-93); ABG TCO2 33.2 MMOL/L (21.0-31.0)
[2019-10-18 09:03] LABS: ALLENS TEST YES-POS; INSPIRED O2 3 L; VENTILATOR NO
[2019-10-18 09:04] LABS: PATIENT TEMP 36.9
[2019-10-18] MEDS ORDERED: DEXTROSE 50% 50 ML (IMS) SYR IV NR (09:14)
[2019-10-18] MEDS: methylPREDNISolone 125 MG (Solu-MEDROL) VIAL IVP SCH ×3 (10:04→19:10)
--- NOTE | 2019-10-18 10:08 | Pulmonary Progress Note ---
Standard Progress Note Progress Notes Date Seen by Provider: Oct 18, 2019 Time Seen by Provider: 08:20 Called to bedside secondary to worsening dysphagia and speech. -Pt complains of excessive saliva production -He was just started on Mestinon yesterday. -I question if pt's current symptoms are secondary to Mestinon however Myasthenia Gravis is being R/O -Pt has no lower extremity deficits, and no visual changes. He also denies worsening SOB and PAGE. -Will do MRA of head and neck -CT of head on admission is negative -PT also states Ativan makes his symptoms better. He has a hx of methamphetamine use. I question if pt is drug seeking. -Check ABG and place pt on C02 monitor UPDATE Rn states pt is not able to lay down flat without significant SOB for MRI. PT was not able to do MRI. Will transfer pt to ICU and continue to monitor. Assessment & Plan SOB - doubt PE - Bilateral dopplers -- neg -V/Q scan neg -limited CTA of chest reviewed Dysphagia/dysarthria -Dr. Cedeño is ruling out myasthenia Gravis -No visual changes -No extremity weakness -Improved Hypokalemia -replace CHF/CAD -Cardiology is consulted lung nodule 8mm L lung -Will need repeat CT of chest in 3mo 60min spent with pt not including this AM's visit. Critical Care: Critically Ill Patient Time spent with patient (mins): 60 KAYLAN FRANKS DO Oct 18, 2019 10:08
[2019-10-18] MEDS ORDERED: NS IV 500 ML 500 ML ONE (10:29)
[2019-10-18] MEDS ORDERED: GLYCOPYRROLATE 0.2 MG/ML (ROBINUL) 2 ML VIAL IV PRN (10:30)
--- NOTE | 2019-10-18 11:08 | Progress Note - Cardiology ---
Cardiology SOAP Progress Note Subjective: Sitting up in bed. Transferred to ICU 10 from [facility] this morning d/t increasing SOB. He reports he has been having difficulty swallowing and eating d/t jaw tightness. He reports he is not in any pain, but when they give him something to help him relax then he can eat and swallow. He reports he went down this morning for a scan and when lying flat he was unable to breathe. He reports sitting up in bed with oxygen on he can breathe easier. No c/o CP or palpitations. Objective: I&O/Vital Signs 10/18/19 10/18/19 10/18/19 10/18/19 00:00 00:00 01:00 04:00 Temp 36.8 Pulse 78 63 Resp 23 B/P (MAP) 130/80 (97) Pulse Ox 95 99 95 O2 Delivery Nasal Cannula Nasal Cannula Nasal Cannula O2 Flow Rate 2.00 2.00 2.00 10/18/19 10/18/19 10/18/19 10/18/19 04:00 06:38 08:00 10:00 Temp 36.5 36.9 Pulse 79 63 70 72 Resp 23 18 14 B/P (MAP) 148/79 (102) 149/78 (101) 155/75 (101) Pulse Ox 98 98 100 O2 Delivery Nasal Cannula Nasal Cannula Nasal Cannula O2 Flow Rate 2.00 2.00 3.00 10/18/19 00:00 Intake Total 1485 ml Output Total 1750 ml Balance -265 ml Weight (Pounds): 205 Weight (Ounces): 0.0 Weight (Calculated Kilograms): 92.464317 Constitutional: AAO x 3, well-developed, well-nourished Respiratory: No accessory muscle use; other (good bilat air entry, a few scattered wheezes, somewhat prolonged exp) Cardiovascular: regular rate-rhythm, S1 and S2, systolic murmur (soft LYDIA at card base) Gastrointestional: No tender; soft; No guarding, No rebound; audible bowel sounds Extremities: No clubbing, No cyanosis, No significant edema Neurologic/Psychiatric: oriented x 3, other (moves all limbs equally) Skin: No rash on exposed areas, No ulcerations on exposed areas Results/Procedures: Labs Laboratory Tests 10/17/19 11:27: Glucometer 295H 10/17/19 12:29: 2/10/20 17:22: Glucometer 304H 10/17/19 20:57: Glucometer 264H 10/18/19 03:36: Glucometer 125H 10/18/19 04:15: White Blood Count 17.2H, Red Blood Count 4.82, Hemoglobin 13.8, Hematocrit 41, Mean Corpuscular Volume 84, Mean Corpuscular Hemoglobin 29, Mean Corpuscular Hemoglobin Concent 34, Red Cell Distribution Width 13.6, Platelet Count 341, Mean Platelet Volume 10.2, Neutrophils (%) (Auto) 75, Lymphocytes (%) (Auto) 16, Monocytes (%) (Auto) 8, Eosinophils (%) (Auto) 0, Basophils (%) (Auto) 0, Neutrophils # (Auto) 13.0H, Lymphocytes # (Auto) 2.8, Monocytes # (Auto) 1.5H, Eosinophils # (Auto) 0.0, Basophils # (Auto) 0.0, Sodium Level 139, Potassium Level 3.4L, Chloride Level 100, Carbon Dioxide Level 25, Anion Gap 14, Blood Urea Nitrogen 32H, Creatinine 1.45H, Estimat Glomerular Filtration Rate 49, BUN/Creatinine Ratio 22, Glucose Level 135H, Calcium Level 8.7, Corrected Calcium 8.9, Total Bilirubin 0.6, Aspartate Amino Transf (AST/SGOT) 20, Alanine Aminotransferase (ALT/SGPT) 45, Alkaline Phosphatase 22L, Total Protein 6.8, Albumin 3.8 10/18/19 08:17: Glucometer 71 10/18/19 08:53: Blood Gas Puncture Site RT RAD, Blood Gas Patient Temperature 36.9, Arterial Blood pH 7.44H, Arterial Blood Partial Pressure CO2 47H, Arterial Blood Partial Pressure O2 94H, Arterial Blood HCO3 32H, Arterial Blood Total CO2 33.2H, Arterial Blood Oxygen Saturation 98, Arterial Blood Base Excess 7.5H, Al Test YES-POS, Blood Gas Ventilator Setting NO, Blood Gas Inspired Oxygen 3 L Microbiology 10/16/19 Blood Culture - Preliminary, Resulted No growth A/P: Assessment: Transient dysphasia/dysarthria, being evaluated and managed by the Hospitalist Service Minimal elevation of troponin, probably type-2 TN due to recent pneumonia and chronic diastolic dysfunction of LV. There is no evidence of type I TN Elevated d-Dimer at presentation. Pulm Svce is evaluating for PE Admission in early Oct 2019 with pneumonia CAD - Last card cath on 09/27/19: Coronary artery disease consisting of severe distal disease of the terminal left anterior descending where the vessel is of a very small caliber and not amenable to intervention. The mid left anterior descending artery has a widely patent stented segment (known to be overlapping Promus 3.0 x 12 and 2.25 x 16 mm stents, the overlap of which has previously been treated with a 3 mm balloon). The right coronary artery exhibits a chronic total occlusion within the stented distal part of the vessel and attempts at percutaneous intervention to this vessel today were unsuccessful. The left circumflex artery exhibits mild plaque. Mildly elevated left ventricular end- diastolic pressure. Labile hypertension - currently not well controlled Low TSH in Jul 2015, being followed by his pcp H/o PUD, based on endoscopy of 06/08/[address] Minaya that showed multiple gastric and duodenal ulcers. Anxiety Echo of 02/17/17: showed LVEF 55-65%, mildly dilated LA, hypokinesis of apical myocardium Maturity onset diabetes mellitus, being managed by Dr. Umanzor. Hyperlipidemia - intolerant to statin (muscle discomfort) Diagnosed with SLE by his pcp in early 2017 (managed by pcp) Gout. Carotid arterial disease. CTA of carotids on 09/20/15 showed 50% prox R ICA and less than 50% L ICA bulb stenoses. Mild carotid art disease on carotid u/s of 10/17/16 Peripheral arterial disease. S/p bilateral leg artery interventions by Dr Layton in Jul and Aug 2014. No leg claudication since Plan: * Continue current regimen * Echocardiogram pending * D/c treatment-dose enoxaparin once PE has been excluded by the [facility] [place] * Advised to refrain from tobacco use * Monitor labs BLADIMIR MCLAIN Oct 18, 2019 11:08
--- NOTE | 2019-10-18 11:29 | NUR ---
Chaplain lugo w/ pt.
--- NOTE | 2019-10-18 11:34 | Progress Note - Hospitalist ---
RADHA FORD, MEDICAL STUDENT 10/18/19 1134: Subjective HPI/CC On Admission CC: SOB and dysphasia HPI: This is a 64[facility]WM [facility] pt who presents with SOB and cough found to have slightly elevated Troponin, evidence of pneumonia on chest x ray, elevated BP an d dysarthria dysphasia episodes He reports that this has occurred for the past 6 weeks on and off and everything is helped after he takes a little bit of a nap. After a brief evaluation of the pt I assessed him to have myasthenia gravis. We will initiate prompt treatment, we did draw labs for confirmation of the disease and will also get a a VQ scan to check for pulmonary emboli. Subjective/Events-last exam Patient has had copious secretions and is also having difficulty speaking as of this morning Patient had to type in order to communicate Patient's breathing is normal, denies pain or swelling anywhere on his body Patient was well over night Hospital Course 64 YO M who originally presented with SOB with evidence of PNA on CXR, he also complained of episodes of mouth not working when he tries to speak or eat. These episodes have been ongoing for the past 2 months. After comprehensive work up pulmonary embolism was rules out, and a workup for Myasthenia Gravis was started based on the patients symptomatic history. He complained of this mouth weakness, neck weakness and easily being fatigued. The patient also had droopy eyelids and had a positive ice pack test at bedside. AchR antibodies were ordered and the patient was started on Mestinon. Objective Exam Vital Signs Vital Signs Date Time Temp Pulse Resp B/P (MAP) Pulse Ox O2 Delivery O2 Flow Rate FiO2 10/18/19 10:00 72 14 155/75 (101) 100 Nasal Cannula 3.00 10/18/19 08:00 36.9 Capillary Refill : Less Than 3 Seconds General Appearance: Mild Distress, Obese HEENT: PERRL/EOMI, Moist Mucous Membranes Neck: Full Range of Motion, Normal Inspection, Non Tender, Supple Respiratory: Chest Non Tender, Lungs Clear, Normal Breath Sounds, Respiratory Distress Cardiovascular: Regular Rate, Rhythm, No Edema, No Gallop, No JVD Gastrointestinal: Normal Bowel Sounds, No Organomegaly, No Pulsatile Mass, Soft Rectal: Deferred Back: Normal Inspection, No Vertebral Tenderness Extremity: Normal Capillary Refill, Normal Range of Motion, Non Tender Neurologic/Psychiatric: Alert, Oriented x3, No Motor/Sensory Deficits, Normal Mood/Affect, physician vice president II-XII Norm as Tested Reflexes: 2+ Bicep (R), 2+ Bicep (L), 2+ Tricep (R), 2+ Tricep (L), 2+ Knee (R), 2+ Knee (L), 2+ Ankle (R), 2+ Ankle (L) Skin: Normal Color, Warm/Dry Lymphatic: No Adenopathy Results/Procedures Lab Laboratory Tests 10/18/19 04:15 Patient resulted labs reviewed. Assessment/Plan Assessment and Plan Assess & Plan/Chief Complaint 64 YO M who recently completed an antibiotic and steroid course for PNA, who now presents with multiple episodes of not being able to use his mouth. He specific ally mentioned weakness in his mouth, neck and fatigability. The patient has a positive ice pack test on his left eye droop as well as Lupus, which has a strong association with Myasthenia Gravis. Will trial patient on Mestinon 30 mg TID Ordered AchR Antibody test will follow up with results Monitor patient's respiratory status closely - concern for airway obstruction Patient has been having copious oral secretions - moved to ICU to manage oral suctions V/Q scan negative concern for pulmonary embolism is low Patient was unable to tolerate MRI due to secretions Clinical Quality Measures DVT/VTE Risk/Contraindication: Risk Factor Score Per Nursin RFS Level Per Nursing on Admit: 2=Moderate TARSHA MARQUIS DO 10/18/19 2137: Subjective HPI/CC On Admission Date Seen by Provider: Oct 18, 2019 Time Seen by Provider: 10:00 Objective Exam General Appearance: No Apparent Distress, WD/WN, Chronically ill Supervisory-Addendum Brief Verification & Attestation Participated in pt care: history, MDM, physical Personally performed: exam, history, MDM, supervision of care Care discussed with: Medical Student Procedures: n/a Results interpretation: Verified all documentation Verification and Attestation of Medical Student E/M Service A medical student performed and documented this service in my presence. I reviewed and verified all information documented by the medical student and made modifications to such information, when appropriate. I personally performed the physical exam and medical decision making. Tarsha Marquis, Oct 18, 2019,21:37 RADHA FORD, MEDICAL STUDENT Oct 18, 2019 11:34 TARSHA MARQUIS DO Oct 18, 2019 21:37
[2019-10-18] MEDS ORDERED: D5 NS 1000 ML IV SOLUTION 1,000 ML IV SCH (12:30)
--- NOTE | 2019-10-18 12:42 | NUR ---
This nurse notified of patients blood pressure 181/98 and blood sugar of 59, orders received for D5NS @40ml/hr and Nitorglycerin paste 1/2inch, Q4Hrs PRN SBP>170. will continue to monitor.
[2019-10-18] MEDS ORDERED: NITROGLYCERIN 2% OINT 1 GM UNIT DOSE PACKET TOP PRN (12:45)
[2019-10-18] MEDS: meTOprolol 5 MG/5 ML (LOPRESSOR) VIAL IV SCH ×2 (14:21→19:09)
--- NOTE | 2019-10-18 14:22 | NUR ---
Order received from to discontinue nitro and to give patient 5mg IV metoprolol PRN Q4H hold if SBP <110 or HR <55
--- NOTE | 2019-10-18 17:00 | NUR ---
asked this nurse to initiate referral to [facility] for the need of a neuro consultation. This nurse spoke with Cruz at [facility] through one call. at accepted patient, and this nurse both notified. Patient will be going to room [id number]. EMS shift captain contacted. EMS dispatch contacted. Informed consent for transfer signed by patient.
--- NOTE | 2019-10-18 17:10 | Progress Note - Cardiology ---
Cardiology SOAP Progress Note Subjective: Swallowing difficulty this am, but now feels better and feels can swallow No cp or palp or syncope No shortness of breath at rest Objective: I&O/Vital Signs 10/18/19 10/18/19 10/18/19 10/18/19 06:38 08:00 08:00 09:00 Temp 36.9 Pulse 63 70 Resp 18 B/P (MAP) 149/78 (101) Pulse Ox 98 95 95 O2 Delivery Nasal Cannula Nasal Cannula Nasal Cannula O2 Flow Rate 2.00 3.00 3.00 10/18/19 10/18/19 10/18/19 10/18/19 09:51 10:00 11:00 12:00 Pulse 72 65 69 Resp 14 21 19 B/P (MAP) 155/75 (101) 166/88 (114) 188/100 (129) Pulse Ox 98 100 100 99 O2 Delivery Nasal Cannula Nasal Cannula Nasal Cannula Nasal Cannula O2 Flow Rate 3.00 3.00 3.00 3.00 10/18/19 10/18/19 10/18/19 10/18/19 12:00 12:15 12:43 13:00 Temp 37.0 Pulse 68 84 Resp 19 B/P (MAP) 154/102 (119) Pulse Ox 95 96 O2 Delivery Nasal Cannula Nasal Cannula O2 Flow Rate 3.00 3.00 10/18/19 10/18/19 10/18/19 10/18/19 14:00 14:49 15:00 15:55 Temp 37.2 Pulse 76 68 Resp 28 24 B/P (MAP) 164/90 (114) 161/94 (116) Pulse Ox 93 97 97 O2 Delivery Nasal Cannula Nasal Cannula Nasal Cannula O2 Flow Rate 3.00 3.00 3.00 10/18/19 00:00 Intake Total 1485 ml Output Total 1750 ml Balance -265 ml Weight (Pounds): 205 Weight (Ounces): 0.0 Weight (Calculated Kilograms): 92.229156 Constitutional: AAO x 3, well-developed, well-nourished Respiratory: No accessory muscle use; other (good bilat air entry, a few scattered wheezes, somewhat prolonged exp) Cardiovascular: regular rate-rhythm, S1 and S2, systolic murmur (soft LYDIA at card base) Gastrointestional: No tender; soft; No guarding, No rebound; audible bowel sounds Extremities: No clubbing, No cyanosis, No significant edema Neurologic/Psychiatric: oriented x 3, other (moves all limbs equally) Skin: No rash on exposed areas, No ulcerations on exposed areas Results/Procedures: Labs Laboratory Tests 10/17/19 17:22: Glucometer 304H 10/17/19 20:57: Glucometer 264H 10/18/19 03:36: Glucometer 125H 10/18/19 04:15: White Blood Count 17.2H, Red Blood Count 4.82, Hemoglobin 13.8, Hematocrit 41, Mean Corpuscular Volume 84, Mean Corpuscular Hemoglobin 29, Mean Corpuscular Hemoglobin Concent 34, Red Cell Distribution Width 13.6, Platelet Count 341, Mean Platelet Volume 10.2, Neutrophils (%) (Auto) 75, Lymphocytes (%) (Auto) 16, Monocytes (%) (Auto) 8, Eosinophils (%) (Auto) 0, Basophils (%) (Auto) 0, Neutrophils # (Auto) 13.0H, Lymphocytes # (Auto) 2.8, Monocytes # (Auto) 1.5H, Eosinophils # (Auto) 0.0, Basophils # (Auto) 0.0, Sodium Level 139, Potassium Level 3.4L, Chloride Level 100, Carbon Dioxide Level 25, Anion Gap 14, Blood Urea Nitrogen 32H, Creatinine 1.45H, Estimat Glomerular Filtration Rate 49, BUN/Creatinine Ratio 22, Glucose Level 135H, Calcium Level 8.7, Corrected Calcium 8.9, Total Bilirubin 0.6, Aspartate Amino Transf (AST/SGOT) 20, Alanine Aminotransferase (ALT/SGPT) 45, Alkaline Phosphatase 22L, Total Protein 6.8, Albumin 3.8 10/18/19 08:17: Glucometer 71 10/18/19 08:53: Blood Gas Puncture Site RT RAD, Blood Gas Patient Temperature 36.9, Arterial Blood pH 7.44H, Arterial Blood Partial Pressure CO2 47H, Arterial Blood Partial Pressure O2 94H, Arterial Blood HCO3 32H, Arterial Blood Total CO2 33.2H, Arterial Blood Oxygen Saturation 98, Arterial Blood Base Excess 7.5H, Al Test YES-POS, Blood Gas Ventilator Setting NO, Blood Gas Inspired Oxygen 3 L 10/18/19 12:15: Glucometer 59*L 10/18/19 15:55: Glucometer 119H Microbiology 10/16/19 Blood Culture - Preliminary, Resulted No growth A/P: Assessment: Dysphasia and dysphagia, being evaluated and managed by the Hospitalist Service Minimal elevation of troponin, probably type-2 KS due to recent pneumonia and chronic diastolic dysfunction of LV. There is no evidence of type I KS Elevated d-Dimer at presentation. PE suspected and worked up the Pulm service. Low prob VQ scan on 10/17/19 Admission in early Oct 2019 with pneumonia CAD - Last card cath on 09/27/19: Coronary artery disease consisting of severe distal disease of the terminal left anterior descending where the vessel is of a very small caliber and not amenable to intervention. The mid left anterior descending artery has a widely patent stented segment (known to be overlapping Promus 3.0 x 12 and 2.25 x 16 mm stents, the overlap of which has previously been treated with a 3 mm balloon). The right coronary artery exhibits a chronic total occlusion within the stented distal part of the vessel and attempts at percutaneous intervention to this vessel today were unsuccessful. The left circumflex artery exhibits mild plaque. Mildly elevated left ventricular end- diastolic pressure. Labile hypertension - currently not well controlled Low TSH in Jul 2015, being followed by his pcp H/o PUD, based on endoscopy of 06/08/[address] Minaya that showed multiple gastric and duodenal ulcers. Anxiety Ischemic cardiomyopathy. Echo of 10/17/19: showed LVEF 40-45%, grade 1 diastolic dysfunction, mildly dilated LA, akinesis of apical myocardium Maturity onset diabetes mellitus, being managed by Dr. Umanzor. Hyperlipidemia - intolerant to statin (muscle discomfort) Diagnosed with SLE by his pcp in early 2017 (managed by pcp) Gout. Carotid arterial disease. CTA of carotids on 09/20/15 showed 50% prox R ICA and less than 50% L ICA bulb stenoses. Mild carotid art disease on carotid u/s of 10/17/16 Peripheral arterial disease. S/p bilateral leg artery interventions by Dr Layton in Jul and Aug 2014. No leg claudication since Plan: * Continue current regimen * Add OLIMPIA-inhib * Change meds to iv, given inability to swallow * No distinct evidence of pulm embolism on w/u. Change enoxaparin to DVT prophylaxis dose if ok with Hospitalist and Pulm Svces * Hospitalist service managing pt's dysphasia and dysphagia * Advised to refrain from tobacco use * Monitor labs RANJAN CABRERA MD FACP FACC CCDS Oct 18, 2019 17:10
--- NOTE | 2019-10-18 17:38 | Discharge Summary ---
Discharge Summary Hospital Course Was the Problem List Reviewed?: Yes Problems/Dx: (1) Sepsis Status: Acute Qualifiers: (2) Myasthenia gravis (3) Pneumonia Status: Acute (4) Elevated troponin Status: Acute (5) CHF exacerbation Status: Acute (6) Fluid overload Status: Acute (7) Coronary artery disease Status: Acute (8) IDDM (insulin dependent diabetes mellitus) Status: Acute (9) CAD (coronary artery disease) (10) Noncompliance with medications Status: Acute Hospital Course Date of Admission: Oct 16, 2019 at 17:30 Admission Diagnosis : Family Physician/Provider: Mike Roland Date of Discharge: 10/18/19 Discharge Diagnosis: MG presumed and new dx, sepsis, PNA, elevated troponin Hospital Course: MRI was attempted for MRI of the brain with MRA but he began to desat so he could not undergo that test Dysphasia continues VQ scan was negative for PE BP remains stable Will pursue Myasthenia Gravis referral to neurology to in [employer] Pt does not appear to have any urgency for intubation or anything to suggest him pending failure Did speak with Dr. Leigh in depth 64 YO M who originally presented with SOB with evidence of PNA on CXR, he also complained of episodes of mouth not working when he tries to speak or eat. These episodes have been ongoing for the past 2 months. After comprehensive work up pu lmonary embolism was rules out, and a workup for Myasthenia Gravis was started based on the patients symptomatic history. He complained of this mouth weakness, neck weakness and easily being fatigued. The patient also had droopy eyelids and had a positive ice pack test at bedside. AchR antibodies were ordered and the patient was started on Mestinon. Labs and Pending Lab Test: Laboratory Tests 10/17/19 20:57: Glucometer 264H 10/18/19 03:36: Glucometer 125H 10/18/19 04:15: White Blood Count 17.2H, Red Blood Count 4.82, Hemoglobin 13.8, Hematocrit 41, Mean Corpuscular Volume 84, Mean Corpuscular Hemoglobin 29, Mean Corpuscular Hemoglobin Concent 34, Red Cell Distribution Width 13.6, Platelet Count 341, Mean Platelet Volume 10.2, Neutrophils (%) (Auto) 75, Lymphocytes (%) (Auto) 16, Monocytes (%) (Auto) 8, Eosinophils (%) (Auto) 0, Basophils (%) (Auto) 0, Neutrophils # (Auto) 13.0H, Lymphocytes # (Auto) 2.8, Monocytes # (Auto) 1.5H, Eosinophils # (Auto) 0.0, Basophils # (Auto) 0.0, Sodium Level 139, Potassium Level 3.4L, Chloride Level 100, Carbon Dioxide Level 25, Anion Gap 14, Blood Urea Nitrogen 32H, Creatinine 1.45H, Estimat Glomerular Filtration Rate 49, BUN/Creatinine Ratio 22, Glucose Level 135H, Calcium Level 8.7, Corrected Calcium 8.9, Total Bilirubin 0.6, Aspartate Amino Transf (AST/SGOT) 20, Alanine Aminotransferase (ALT/SGPT) 45, Alkaline Phosphatase 22L, Total Protein 6.8, Albumin 3.8 10/18/19 08:17: Glucometer 71 10/18/19 08:53: Blood Gas Puncture Site RT RAD, Blood Gas Patient Temperature 36.9, Arterial Blood pH 7.44H, Arterial Blood Partial Pressure CO2 47H, Arterial Blood Partial Pressure O2 94H, Arterial Blood HCO3 32H, Arterial Blood Total CO2 33.2H, Arterial Blood Oxygen Saturation 98, Arterial Blood Base Excess 7.5H, Al Test YES-POS, Blood Gas Ventilator Setting NO, Blood Gas Inspired Oxygen 3 L 10/18/19 12:15: Glucometer 59*L 10/18/19 15:55: Glucometer 119H Microbiology 10/16/19 Blood Culture - Preliminary, Resulted No growth Home Meds Active Reported Doxycycline Hyclate 100 Mg Capsule 100 Mg PO BID PICKED UP ON 10-13-2019 #6 Pravastatin Sodium 20 Mg Tablet 20 Mg PO HS HAS NOT PICKED UP YET Glipizide 5 Mg Tablet 5 Mg PO DAILY HAS NOT STARTED YET Metoprolol Succinate 100 Mg Tab.er.24h 100 Mg PO BID Aspirin EC (Aspirin) 81 Mg Tablet.dr 81 Mg PO DAILY Clonidine HCl 0.1 Mg Tablet 0.1 Mg PO BID Fish Oil 1,200 mg Fish Oil (Fish Oil/Dha/Epa) 1 Each Capsule 1,200 Mg PO DAILY Pantoprazole Sodium 40 Mg Tablet.dr 40 Mg PO DAILY Novolog (Insulin Aspart) 100 Unit/1 Ml Susp 28 Unit SQ TIDAC Tresiba Flextouch U-100 (Insulin Degludec) 100 Unit/1 Ml Insuln.pen 100 Unit SQ HS Amlodipine Besylate 10 Mg Tablet 10 Mg PO DAILY Celecoxib 200 Mg Capsule 200 Mg PO BID Clopidogrel (Clopidogrel Bisulfate) 75 Mg Tablet 75 Mg PO DAILY Assessment/Pt Instructions [facility] transfer Discharge Planning: <30 minutes discharge planning Discharge Instructions Discharge Diet: Other Diet (NPO) Activity as Tolerated: Yes Discharge Physical Examination Vital Signs Vital Signs Date Time Temp Pulse Resp B/P (MAP) Pulse Ox O2 Delivery O2 Flow Rate FiO2 10/18/19 15:55 37.2 10/18/19 15:00 68 24 161/94 (116) 97 Nasal Cannula 3.00 General Appearance: No Apparent Distress, WD/WN, Chronically ill Allergies: Coded Allergies: carvedilol (Unverified Allergy, Unknown, 01/22/10) codeine (Unverified Allergy, Unknown, PATIENT HAS RECEIVED MORPHINE WITHOUT ISSUE, 06/08/15) Discharge Summary Date of Admission Oct 16, 2019 at 17:30 Date of Discharge Discharge Date: Oct 18, 2019 Admission Diagnosis Assessment: PNA CHF Elevated troponin Suspect Myasthenia Gravis Former smoker Plan: Mestinon Abx Cardiology and pulmonology consultation Discharge Diagnosis (1) Sepsis Status: Acute Qualifiers: (2) Myasthenia gravis (3) Pneumonia Status: Acute (4) Elevated troponin Status: Acute (5) CHF exacerbation Status: Acute (6) Fluid overload Status: Acute (7) Coronary artery disease Status: Acute (8) IDDM (insulin dependent diabetes mellitus) Status: Acute (9) CAD (coronary artery disease) (10) Noncompliance with medications Status: Acute Clinical Quality Measures DVT/VTE Risk/Contraindication: Risk Factor Score Per Nursin RFS Level Per Nursing on Admit: 2=Moderate EVERARDO MARQUIS DO Oct 18, 2019 17:38
[2019-10-18] MEDS ORDERED: inSUlin ASPART (NovoLOG) 1 UNIT/0.01 ML (CHARGE PER UNIT) SC SCH (18:00)
[2019-10-18] MEDS ORDERED: TROUGH ORDER-PHARMACY XX NR (18:00)
--- NOTE | 2019-10-18 18:05 | NUR ---
SBAR Report called to Yovana MILLER at [facility].
--- NOTE | 2019-10-18 19:20 | NUR ---
EMS HERE TO FINISHED YARN EXAMINER PATIENT
[2019-10-18] MEDS ORDERED: ENALAPRILAT 2.5 MG/2 ML (VASOTEC) VIAL IV SCH (21:00)
[2019-10-18] MEDS ORDERED: ENALAPRILAT 1.25 MG/1 ML (VASOTEC) 1 ML VIAL IV SCH (21:00)
[2019-10-19] MEDS ORDERED: POTASSIUM CL 10MEQ/50ML IVPB 50 ML IV SCH (06:00)
[2019-10-19] MEDS ORDERED: MAGNESIUM 1 GM/100 ML IVPB 100 ML IV SCH (06:00)
[2019-10-19] MEDS ORDERED: KCL 20 MEQ TAB (K-DUR) PO SCH (06:00)
[2019-10-19] MEDS ORDERED: ENOXAPARIN 40 MG/0.4 ML (LOVENOX) SYR SC SCH (09:00)
== END 2019-10-18 19:22 | disposition designated cancer center or children's hospital (05) | DRG 56 ==
LOC: EDUNIT# 14:59 → ER 15:00 → CSD 17:30 → ICU 10-18 09:38
PROVIDERS: ADMIT Internal Medicine; ATTEND Internal Medicine
DX: G70.00 Myasthenia gravis without (acute) exacerbation (principal); A41.9 Sepsis, unspecified organism; J18.9 Pneumonia, unspecified organism; I21.A1 Myocardial infarction type 2; I50.33 Acute on chronic diastolic (congestive) heart failure; G72.81 Critical illness myopathy; I11.0 Hypertensive heart disease with heart failure; I25.10 Atherosclerotic heart disease of native coronary artery without angina pectoris; G47.33 Obstructive sleep apnea (adult) (pediatric); E78.00 Pure hypercholesterolemia, unspecified; E78.5 Hyperlipidemia, unspecified; E11.51 Type 2 diabetes mellitus with diabetic peripheral angiopathy without gangrene; K21.9 Gastro-esophageal reflux disease without esophagitis; M10.9 Gout, unspecified; M19.90 Unspecified osteoarthritis, unspecified site; F41.9 Anxiety disorder, unspecified; F15.90 Other stimulant use, unspecified, uncomplicated; I25.5 Ischemic cardiomyopathy; Z95.5 Presence of coronary angioplasty implant and graft
CPT/HCPCS: 36415; 36600; 70450; 70496; 70498; 71045; 71275; 78582; 80048; 80053; 80061; 80202; 80306; 80320; 81000; 82550; 82553; 82805; 82962; 83519; 83735; 83874; 83880; 84443; 84484; 85007; 85025; 85027; 85379; 85610; 85730; 87040; 93005; 93041; 93306; 93970; 94640; 94664; 94760; 96365; 96372; 96375

== ENCOUNTER 2020-04-12 14:26 | Outpatient (RCR) | payer MEDICARE, MEDICAID ==
[2020-04-06 13:00] VITALS: BP 152/83
[2020-04-06] MEDS: HEParin (CENTRAL IV FLUSH) 500 UNIT/5 ML SYR IV PRN (13:40)
[2020-04-10 13:20] VITALS: BP 155/82
[2020-04-10] MEDS: HEParin (CENTRAL IV FLUSH) 500 UNIT/5 ML SYR IV PRN (14:26)
[~2020-04-12] VITALS: Ht 172.7 cm; Wt 90.2 kg
[~2020-04-12 14:26] MED LIST changes: +CATHETER FLUSH 10 ML SYR IV PRN
[2020-04-12 15:05] VITALS: BP 153/119
== END 2020-04-12 15:13 | disposition home or self-care (01) ==
LOC: SDC 14:26
PROVIDERS: ATTEND Psychiatry & Neurology Neurology
DX: G70.00 Myasthenia gravis without (acute) exacerbation (principal)
CPT/HCPCS: 36569; 76937; C1751

== ENCOUNTER 2020-06-11 08:17 | Emergency (ER) | payer MEDICARE, MEDICAID ==
[~2020-06-11] VITALS: Ht 177 cm; Wt 100.0 kg
[~2020-06-11 08:17] MED LIST changes: +ALPR.25T PO; -ALPR0.254 PO; +ASPI-1238 PO; -ASPI-983 PO; -CATHETER FLUSH 10 ML SYR IV PRN; -PANT40TA3 PO; +PANT40TA52 PO
[2020-06-11] MEDS ORDERED: ONDANSETRON 4 MG/2 ML (SDV) Z0FRAN ONE (08:21)
[2020-06-11] MEDS ORDERED: PROPOFOL DRIP (ICU) 100 ML IV ONE ×3 (08:26→14:09)
--- NOTE | 2020-06-11 08:26 | NUR ---
0826 PT ARRIVED PER EMS ON CPAP IN RESP DISTRESS. IN ROOM PT TO BE INTUBATED. 0829 PT SUCTIONED AND ADULT EASY IO PLACED IN L PROXIMAL TIBIA. 0830 ETOMIDATE 20MG IV GIVEN ORDERED.SUCCS 100MG IV GIVEN ORDERED 0831 ZOFRAN 8MG IV GIVEN ORDERED 0832 FENTYL 100MCG GIVEN ORDERED. PT INTUBATED W 7.5 ET TUBE 24CM AT TEETH COLOR CHANGE ON CO2 DETECTOR, BS NOTED BILATERALLY. TUBE SECURED 0833 OG #16 INSERTED W GASTRIC RETURN NOTED 0837 #16 LOPEZ INSERTED W YELLOW URINE RETURN 0843 PROPAFOL GTT STARTED AT 18MLS/HR 0845 VERSED 5MG IV GIVEN ORDERED 0847 PROPAFOL INCREASED TO 24MLS/HR- 40MCG/KG/MIN 0850 [id number] REPORTED TO
[2020-06-11 08:46] LABS: BILIRUBIN,URINE NEGATIVE (NEGATIVE); CLARITY,URINE SL CLOUDY; COLOR,URINE YELLOW; GLUCOSE, URINE (UA) 3+ (NEGATIVE); KETONES,URINE TRACE (NEGATIVE); LEUKOCYTE ESTERASE ,URINE NEGATIVE (NEGATIVE); NITRITE,URINE NEGATIVE (NEGATIVE); PH,URINE 5.5 (5-9); PROTEIN,URINE 2+ (NEGATIVE)
--- NOTE | 2020-06-11 08:50 | NUR ---
0854 EKG DONE 0945 50MG RYDER GIVEN ORDERED AND PT REPOSITIONED [address] BY DR STREETER IN L IJ. PT SAT DECREASED ON VENT TO 70'S PT BAGGED BY STAFF. 1005 LABS COMPLETED. 1040 IO DC'D. 1047 ABG'S DRAWN. 1050 CONT TO USE AMBU BAG TO VENTILATE PT D/T NOT ABLE TO KEEP SATS UP ON VENT 1145 PLACE PADS ON PT BONY PROMINCES, PT TO PRONE POSITION, PT BACK TO VENTILATOR SAT 91%. L IJ, LOPEZ, OG, ET TUBE ALL IN PLACE. DIPROVAN CONT AT 24CC/HR 1250 ABG BY RT 1259 BED ARRANGEMENT MADE, INSULIN 10U SQ GIVEN ORDERED 1308 REPORT TO ALLISON MILLER AT [facility] 1358 LASIX 40MG IV GIVEN ORDERED 1410 HEPARIN 5000U IV GIVEN ORDERED, FLIGHT CREW TO START HEP GTT ENROUTE. PT BACK TO SUPINE POSTION FOR FLIGHT CREW. IJ INTACT L NECK, LOPEZ IN PLACE, ET TUBE AND OG IN PLACE UPON TRANSFER. DIPROVAN CONT @24CC/HR
[2020-06-11 08:59] LABS: AMORPHOUS SEDIMENT,UR MOD AMOR URATES /LPF; BACTERIA,URINE NEGATIVE /HPF; URINE OTHER MOD SPERM /HPF; WBC,URINE RARE /HPF
[2020-06-11 09:06] LABS: AMPHETAMINE SCREEN, URINE POSITIVE (NEGATIVE); BARBITURATE SCREEN URINE NEGATIVE (NEGATIVE); BENZODIAZEPINES SCREEN URINE POSITIVE (NEGATIVE); CANNABINOID SCREEN, URINE NEGATIVE (NEGATIVE); COCAINE SCREEN URINE NEGATIVE (NEGATIVE); METHADONE STAT NEGATIVE (NEGATIVE); METHAMPHETAMINE SCREEN URINE S POSITIVE (NEGATIVE); OPIATE SCREEN URINE NEGATIVE (NEGATIVE); OXYCODONE STAT NEGATIVE (NEGATIVE); PROPOXYPHENE STAT NEGATIVE (NEGATIVE); TRICYCLIC ANTIDEPRESSANTS SCRE NEGATIVE (NEGATIVE)
[2020-06-11] MEDS ORDERED: NOREPINEPHRINE 4 MG/250 ML 250 ML IV ONE (09:37)
[2020-06-11] MEDS ORDERED: PIPERACILLIN SODIUM/TAZOBACTAM 4.5 GM in NS (IVPB) 100 ML IV ONE (09:45)
[2020-06-11] MEDS ORDERED: NOREPINEPHRINE 4 MG/250 ML 250 ML IV SCH (09:45)
[2020-06-11] MEDS ORDERED: ROCURONIUM 10 MG/ML 5 ML SYRINGE IV ONE ×2 (09:45→18:13)
[2020-06-11] MEDS ORDERED: methylPREDNISolone 125 MG (Solu-MEDROL) VIAL IVP ONE (09:45)
[2020-06-11 09:46] LABS: HEMOGLOBIN 14.4 g/dL (13.3-17.7)
[2020-06-11 09:47] LABS: BASOPHILS # (AUTO) 0.1 10^3/uL (0.0-0.1); BASOPHILS % (AUTO) 0 % (0-10); EOSINOPHILS # (AUTO) 0.5 10^3/uL (0.0-0.3); EOSINOPHILS % (AUTO) 2 % (0-10); HEMATOCRIT 45 % (40-54); LYMPHOCYTES # (AUTO) 4.1 10^3/uL (1.0-4.0); LYMPHOCYTES % (AUTO) 15 % (12-44); MEAN CORPUSCULAR HEMOGLOBIN 28 pg (25-34); MEAN CORPUSCULAR HGB CONC 32 g/dL (32-36); MEAN CORPUSCULAR VOLUME 89 fL (80-99); MEAN PLATELET VOLUME 11.4 fL (9.0-12.2); MONOCYTES # (AUTO) 0.8 10^3/uL (0.0-1.0); MONOCYTES % (AUTO) 3 % (0-12); NEUTROPHILS # (AUTO) 21.6 10^3/uL (1.8-7.8); NEUTROPHILS % (AUTO) 78 % (42-75); PLATELET COUNT 232 10^3/uL (130-400); WHITE BLOOD COUNT 27.6 10^3/uL (4.3-11.0)
--- NOTE | 2020-06-11 09:47 | Diagnostic Imaging Report ---
HISTORY: ET and OT tube placement. Sepsis. Post code. COMPARISON: 10/17/2019. TECHNIQUE: Single frontal view of the chest. FINDINGS: The endotracheal tube is approximately 4.5 cm above the jeri. The enteric tube projects over the stomach. EKG leads and defibrillator pads are noted. Small hyperdensities overlie the right chest, likely foreign bodies in the soft tissue. There are bibasilar airspace opacities which appear new. No pleural effusion or pneumothorax is seen. The cardiac silhouette is mildly large. IMPRESSION: 1. The endotracheal tube is 4.5 cm above the jeri. The enteric tube projects over the stomach. 2. Bilateral pulmonary airspace opacities, most likely edema. Dictated by: Dictated on workstation # [id number]
[2020-06-11] MEDS ORDERED: FUROSEMIDE 40 MG/4 ML INJ (LASIX) IVP ONE ×2 (10:00→14:00)
[2020-06-11 10:06] LABS: BAND NEUTROPHILS 0 %; BASOPHILS % (MANUAL) 0 %; EOSINOPHILS % (MANUAL) 2 %; LYMPHOCYTES % (MANUAL) 20 %; MONOCYTES % (MANUAL) 0 %; NEUTROPHILS % (MANUAL) 78 %; RBC MORPH NORMAL
[2020-06-11] MEDS ORDERED: RT-ALBUTEROL INHALER HFA (VENTOLIN HFA) 18 GM IH ONE (10:10)
[2020-06-11 10:24] LABS: ALBUMIN 3.2 GM/DL (3.2-4.5); POTASSIUM 4.7 MMOL/L (3.6-5.0)
[2020-06-11 10:26] LABS: CALCIUM 7.9 MG/DL (8.5-10.1)
[2020-06-11 10:27] LABS: TOTAL PROTEIN 6.8 GM/DL (6.4-8.2)
[2020-06-11 10:29] LABS: BILIRUBIN,TOTAL 0.5 MG/DL (0.1-1.0)
[2020-06-11 10:31] LABS: CREATININE SERUM 2.07 MG/DL (0.60-1.30); MAGNESIUM 1.8 MG/DL (1.6-2.4)
[2020-06-11 10:35] LABS: INR 1.1 (0.8-1.4); PROTHROMBIN TIME PATIENT 14.3 SEC (12.2-14.7)
--- NOTE | 2020-06-11 10:40 | NUR ---
CENTRAL LINE PLACE CONFIRMED W X-RAY IO IN L TIBIA DC'D
--- NOTE | 2020-06-11 10:51 | Diagnostic Imaging Report ---
HISTORY: Central line placement TECHNIQUE: Frontal view of the chest COMPARISON: Radiographs from the same day. FINDINGS: The endotracheal tube is 4.5 cm above the jeri. The left central line tip projects over the upper SVC, directed to the right. The enteric tube crosses the [id number]. There are patchy airspace opacities in the lungs bilaterally, similar to the prior study. No significant pleural effusion or pneumothorax is seen. The cardiac silhouette is mildly prominent, but stable since the prior study. IMPRESSION: 1. The tip of the left central line projects over the upper SVC, directed to the right. 2. Redemonstrated airspace opacities in the lungs appear unchanged. Dictated by: Dictated on workstation # [id number]
[2020-06-11 11:26] LABS: ABG BASE EXCESS -3.4 MMOL/L (-2.5-2.5); ABG OXYGEN SATURATION 92 % (94-100); ABG PO2 86 MMHG (79-93); ABG TCO2 28.2 MMOL/L (21.0-31.0)
[2020-06-11 11:28] LABS: ABG PCO2 87 MMHG (35-45); ABG PH 7.09 (7.37-7.43); ALLENS TEST YES-POS; INSPIRED O2 100%
[2020-06-11 11:29] LABS: PATIENT TEMP 36.7; VENTILATOR NO
[2020-06-11] MEDS ORDERED: ASPIRIN 300 MG (5 GR) SUPPOSITORY PR ONE (11:30)
--- NOTE | 2020-06-11 11:46 | Progress Note-Post Operative ---
Post-Operative Progess Note Surgeon (s)/Composing Room Machinist Apprentice (s) Surgeon HARVEY STREETER DO Composing Room Machinist Apprentice: none Pre-Operative Diagnosis Resp Failure, Hypotension, Venous Insufficiency Post-Operative Diagnosis Same Procedure & Operative Findings Date of Procedure 06/11/20 Procedure Performed/Findings PROCEDURE: [Right] internal jugular central line placement using ultrasound guidance. COMPLICATIONS: None. INDICATIONS: The patient is a 64 year old male [with respiratory failure, Hypotension and Venous Insufficiency]. Patient was intubated and this was an emergent line placement. PROCEDURE: The patient was in his ER room, was prepped and draped in the sterile fashion. A surgical pause was performed. Ultrasound was used to locate the internal jugular vein. Once located anesthetic was infiltrated above it. Using 18 gauge finder needle with negative inspiration the the right internal vein was accessed. Dark nonpulsatile blood was withdrawn. The wire was inserted. US assured proper placement. The needle was removed. A [#11] blade scalpel was used to make a stab incision along the wire. The dilator was advanced over the wire and then removed using the Seldinger technique. The triple lumen catheter was then advanced over using the Seldinger technique and it went in easily. The wire was removed and the catheter was then accessed without difficulty. All three ports were aspirated and then flushed with saline; they flushed easily. The catheter was then sutured in place with 3-0 silk on a Yung needle. The area was then washed and dried and a sterile dressing was placed. Anesthesia Type Sedated on vent Estimated Blood Loss Estimated blood loss (mL): scant Specimens/Packing Specimens Removed none HARVEY STREETER DO Jun 11, 2020 11:46
[2020-06-11 11:48] VITALS: BP 131/73
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
[2020-06-11] MEDS ORDERED: inSUlin (REGULAR) HUMAN 1 UNIT/0.01 ML (CHARGE PER UNIT) SC ONE (12:30)
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
[2020-06-11 13:02] LABS: ABG BASE EXCESS -3.3 MMOL/L (-2.5-2.5); ABG OXYGEN SATURATION 93 % (94-100); ABG PCO2 64 MMHG (35-45); ABG PO2 79 MMHG (79-93); ABG TCO2 25.8 MMOL/L (21.0-31.0)
[2020-06-11 13:04] LABS: ALLENS TEST YES-POS; INSPIRED O2 100%; VENTILATOR YES
[2020-06-11 13:05] LABS: PATIENT TEMP 36.7
--- NOTE | 2020-06-11 13:08 | NUR ---
REPORT TO ALLISON MILLER AT [facility]
[2020-06-11] MEDS ORDERED: NS IV 1000 ML 1,000 ML IV SCH (13:15)
[2020-06-11] MEDS ORDERED: FUROSEMIDE 40 MG/4 ML INJ (LASIX) ONE (13:47)
[2020-06-11] MEDS ORDERED: RT-ALBUTEROL INHALER HFA (VENTOLIN HFA) 18 GM IH SCH (14:00)
[2020-06-11] MEDS ORDERED: HEParin 1000 UNIT/ML (10ML VIAL) FOR BOLUS ONE (14:06)
[2020-06-11] MEDS ORDERED: HEParin DRIP 25000 UNIT/500ML 500 ML IV ONE ×2 (14:06→14:10)
[2020-06-11] MEDS ORDERED: HEParin 1000 UNIT/ML (10ML VIAL) FOR BOLUS IV ONE (14:15)
--- NOTE | 2020-06-11 14:15 | NUR ---
HEPARIN GTT AND BOTTLE OF 100CC OF DIPROVAN SENT W FLIGHT CREW
[2020-06-11 14:16] VITALS: BP 130/73
--- NOTE | 2020-06-11 14:16 | NUR ---
PT DISCHARGED FROM ED TO MED FL[facility]
[2020-06-11] MEDS ORDERED: MIDAZOLAM 5 MG/5 ML (VERSED) VIAL IVP ONE (18:13)
[2020-06-11] MEDS ORDERED: ETOMIDATE IV SOLN 20 MG/10 ML VIAL IV ONE (18:13)
[2020-06-11] MEDS ORDERED: fentaNYL INJECTION 100 MCG/2 ML AMP IV ONE (18:13)
[2020-06-11] MEDS ORDERED: SUCCINYLCHOLINE INJ 100 MG/5 ML SYR/VIAL INJ ONE (18:13)
== END 2020-06-11 14:16 | disposition short-term general hospital (02) ==
LOC: ER 08:17
DX: G70.00 Myasthenia gravis without (acute) exacerbation (principal); R77.8 Other specified abnormalities of plasma proteins; N17.9 Acute kidney failure, unspecified; F19.10 Other psychoactive substance abuse, uncomplicated; K21.9 Gastro-esophageal reflux disease without esophagitis; E78.00 Pure hypercholesterolemia, unspecified; I10 Essential (primary) hypertension; I25.10 Atherosclerotic heart disease of native coronary artery without angina pectoris; E11.65 Type 2 diabetes mellitus with hyperglycemia; R79.1 Abnormal coagulation profile; Z20.828 Contact with and (suspected) exposure to other viral communicable diseases; Z79.4 Long term (current) use of insulin; Z83.3 Family history of diabetes mellitus; Z82.49 Family history of ischemic heart disease and other diseases of the circulatory system; Z80.9 Family history of malignant neoplasm, unspecified; Z82.61 Family history of arthritis; Z95.5 Presence of coronary angioplasty implant and graft; Z95.9 Presence of cardiac and vascular implant and graft, unspecified; Z86.73 Personal history of transient ischemic attack (TIA), and cerebral infarction without residual deficits; Z88.5 Allergy status to narcotic agent; Z88.8 Allergy status to other drugs, medicaments and biological substances; Z79.82 Long term (current) use of aspirin
CPT/HCPCS: 31500; 36600; 36680; 51702; 71045; 80053; 80306; 81000; 82805; 82962; 83605; 83615; 83735; 83874; 83880; 84145; 84484; 85007; 85027; 85379; 85610; 85730; 86141; 87040; 87070; 87088; 87205; 87804; 93005; 93041; 94640; 94799; 99291; 99292; U0002; 36415; 87635

== ENCOUNTER → 2020-06-29 | Outpatient (CLI) | payer MEDICARE, MEDICAID ==
[2020-06-29 10:44] LABS: BASOPHILS # (AUTO) 0.1 10^3/uL (0.0-0.1); BASOPHILS % (AUTO) 1 % (0-10); EOSINOPHILS # (AUTO) 0.4 10^3/uL (0.0-0.3); EOSINOPHILS % (AUTO) 4 % (0-10); HEMATOCRIT 39 % (40-54); HEMOGLOBIN 12.8 g/dL (13.3-17.7); LYMPHOCYTES # (AUTO) 2.9 10^3/uL (1.0-4.0); LYMPHOCYTES % (AUTO) 28 % (12-44); MEAN CORPUSCULAR HEMOGLOBIN 28 pg (25-34); MEAN CORPUSCULAR HGB CONC 33 g/dL (32-36); MEAN CORPUSCULAR VOLUME 85 fL (80-99); MEAN PLATELET VOLUME 9.4 fL (9.0-12.2); MONOCYTES # (AUTO) 0.6 10^3/uL (0.0-1.0); MONOCYTES % (AUTO) 6 % (0-12); NEUTROPHILS # (AUTO) 6.4 10^3/uL (1.8-7.8); NEUTROPHILS % (AUTO) 61 % (42-75); PLATELET COUNT 347 10^3/uL (130-400); WHITE BLOOD COUNT 10.5 10^3/uL (4.3-11.0)
[2020-06-29 11:07] LABS: ALBUMIN 4.5 GM/DL (3.2-4.5); BILIRUBIN,TOTAL 0.5 MG/DL (0.1-1.0); CALCIUM 9.3 MG/DL (8.5-10.1); CREATININE SERUM 1.36 MG/DL (0.60-1.30); MAGNESIUM 1.7 MG/DL (1.6-2.4); POTASSIUM 4.1 MMOL/L (3.6-5.0); TOTAL PROTEIN 7.1 GM/DL (6.4-8.2)
== END ==
LOC: LAB 10:01
PROVIDERS: ATTEND Internal Medicine Cardiovascular Disease
DX: I10 Essential (primary) hypertension (principal); I25.10 Atherosclerotic heart disease of native coronary artery without angina pectoris; I44.1 Atrioventricular block, second degree; I65.23 Occlusion and stenosis of bilateral carotid arteries; E11.9 Type 2 diabetes mellitus without complications; E78.2 Mixed hyperlipidemia; G70.00 Myasthenia gravis without (acute) exacerbation
CPT/HCPCS: 36415; 80053; 83735; 83880; 84443; 85025

== ENCOUNTER → 2020-06-29 | Outpatient (CLI) | payer MEDICARE, MEDICAID ==
[2020-06-29 11:19] LABS: CREATININE SERUM 1.36 MG/DL (0.60-1.30)
== END ==
LOC: LAB 09:56
PROVIDERS: ATTEND Nurse Practitioner Family
DX: G47.33 Obstructive sleep apnea (adult) (pediatric) (principal); G70.00 Myasthenia gravis without (acute) exacerbation; R05 Cough; R91.8 Other nonspecific abnormal finding of lung field; R00.1 Bradycardia, unspecified
CPT/HCPCS: 82565; 84520

== ENCOUNTER 2020-07-04 10:59 | Outpatient (CLI) | payer MEDICARE, MEDICAID ==
[~2020-07-04 10:59] MED LIST changes: +HOLD METFORMIN - RECEIVED CONTRAST 20 ML VIAL IV SCH; +IOHEXOL 350 MG/ML 100 ML (OMNIPAQUE 350) VIAL IV ONE; +NS 100 ML (IVPB) BAG IV ONE
[2020-07-04] MEDS ORDERED: HOLD METFORMIN - RECEIVED CONTRAST 20 ML VIAL IV SCH ×2 (11:30→12:30)
[2020-07-04] MEDS ORDERED: NS 100 ML (IVPB) BAG IV ONE ×2 (11:30→12:30)
[2020-07-04] MEDS ORDERED: IOHEXOL 350 MG/ML 100 ML (OMNIPAQUE 350) VIAL IV ONE ×2 (11:30→12:30)
--- NOTE | 2020-07-04 14:01 | Diagnostic Imaging Report ---
PROCEDURE: CT chest with contrast only. TECHNIQUE: Multiple contiguous axial images were obtained through the chest after administration of intravenous contrast. Auto Exposure Controls were utilized during the CT exam to meet ALARA standards for radiation dose reduction. INDICATION: Cough, shortness of breath, bradycardia. COMPARISON: 10/16/2019 and 02/16/2017 as well as a radiograph dated 06/11/2020. FINDINGS: Significant mediastinal and hilar adenopathy is again identified. This appears stable since the prior examinations including dating back to February 2017. No definite new adenopathy. An aberrant right subclavian artery is incidentally noted. Scattered vascular calcifications, including extensive vascular calcifications, within the coronary arteries. The heart is mildly enlarged. No significant pericardial effusion. No pleural effusion. No pneumothorax. Minimal tree-in-bud nodularity is noted within the posterior and inferior aspect of the right lower lobe, appearing improved since the prior examination. The lungs otherwise appear clear. The previously noted 8 mm left lower lobe pulmonary nodule has resolved. Additionally, the patchy groundglass and reticular opacities within the lungs bilaterally have resolved. No new pulmonary nodule. Fatty infiltration of the liver. The partially visualized 1.6 cm hypodensity arising from the superior pole of the left kidney has not significantly changed since February 2017. The visualized upper abdomen is otherwise unremarkable except for advanced vascular calcifications. Metallic densities within the right breast. Chronic right-sided rib fractures. Scattered osseous degenerative changes. Ingomar right curvature of the spine. No acute osseous abnormality. IMPRESSION: The previously noted left lower lobe pulmonary nodule has resolved; therefore, this is felt to have related to a resolved infectious or inflammatory process. Improved though minimal persisting tree-in-bud nodularity within the right upper lobe is felt to relate to a small airway or small vessel infectious or inflammatory process. This has improved since the prior examination with resolution of additional opacities noted on prior imaging. Persistent mediastinal and hilar adenopathy. This is of uncertain etiology though is unchanged since February 2017. This could relate to an underlying granulomatous process such as sarcoidosis. Given stability since 2017, reactive adenopathy is felt unlikely. A low-grade infiltrative process such as lymphoma cannot totally be excluded though is felt less likely given stability. Advanced vascular calcifications including within the coronary arteries. Dictated by: Dictated on workstation # [id number]
== END 2020-07-04 14:00 | disposition home or self-care (01) ==
LOC: SLEEP 10:59
PROVIDERS: ATTEND Nurse Practitioner Family
DX: G47.33 Obstructive sleep apnea (adult) (pediatric) (principal); G70.00 Myasthenia gravis without (acute) exacerbation; I25.10 Atherosclerotic heart disease of native coronary artery without angina pectoris; R59.0 Localized enlarged lymph nodes; R91.8 Other nonspecific abnormal finding of lung field; Z20.828 Contact with and (suspected) exposure to other viral communicable diseases
CPT/HCPCS: 71260; G0399

== ENCOUNTER → 2020-07-04 | Outpatient (CLI) | payer MEDICARE, MEDICAID ==
[~2020-07-04] MED LIST changes: +AMLO-250 PO; +AMLO-251 PO; -AMLO10TA7 PO; -AMLO5TAB9 PO; +CLN.1T PO; -CLON0.1T PO
== END ==
LOC: CARD 13:00
PROVIDERS: ATTEND Internal Medicine Cardiovascular Disease
DX: I25.10 Atherosclerotic heart disease of native coronary artery without angina pectoris (principal); I65.23 Occlusion and stenosis of bilateral carotid arteries; I10 Essential (primary) hypertension; I44.1 Atrioventricular block, second degree; I51.7 Cardiomegaly; I34.8 Other nonrheumatic mitral valve disorders; E11.9 Type 2 diabetes mellitus without complications; E78.5 Hyperlipidemia, unspecified; G70.00 Myasthenia gravis without (acute) exacerbation
CPT/HCPCS: 93306

== ENCOUNTER 2020-07-09 16:02 | Emergency (ER) | payer MEDICARE, MEDICAID ==
[~2020-07-09] VITALS: Ht 172 cm; Wt 97.0 kg
[~2020-07-09 16:02] MED LIST changes: -HOLD METFORMIN - RECEIVED CONTRAST 20 ML VIAL IV SCH; -IOHEXOL 350 MG/ML 100 ML (OMNIPAQUE 350) VIAL IV ONE; -NS 100 ML (IVPB) BAG IV ONE
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
--- NOTE | 2020-07-09 16:42 | NUR ---
BLANCA MILLER AND CRYPTOGRAPHER IN ROOM ATTEMPTING FOR IV.
--- NOTE | 2020-07-09 16:50 | NUR ---
ATTEMPT TO CALL PT'S ABOUT TRANSFER. SHE DID NOT ANSWER.
[2020-07-09 16:58] LABS: BASOPHILS % (AUTO) 0 % (0-10); EOSINOPHILS # (AUTO) 0.1 10^3/uL (0.0-0.3); EOSINOPHILS % (AUTO) 1 % (0-10); HEMATOCRIT 39 % (40-54); HEMOGLOBIN 12.6 g/dL (13.3-17.7); LYMPHOCYTES # (AUTO) 0.9 10^3/uL (1.0-4.0); LYMPHOCYTES % (AUTO) 8 % (12-44); MEAN CORPUSCULAR HEMOGLOBIN 28 pg (25-34); MEAN CORPUSCULAR HGB CONC 32 g/dL (32-36); MEAN CORPUSCULAR VOLUME 86 fL (80-99); MEAN PLATELET VOLUME 10.7 fL (9.0-12.2); MONOCYTES # (AUTO) 0.2 10^3/uL (0.0-1.0); MONOCYTES % (AUTO) 2 % (0-12); NEUTROPHILS % (AUTO) 88 % (42-75); PLATELET COUNT 194 10^3/uL (130-400); WHITE BLOOD COUNT 11.4 10^3/uL (4.3-11.0)
--- NOTE | 2020-07-09 17:05 | NUR ---
IN ROOM INSERTING A CENTRAL LINE IN AT THIS TIME.
[2020-07-09 17:08] LABS: ALBUMIN 4.6 GM/DL (3.2-4.5)
--- NOTE | 2020-07-09 17:08 | Diagnostic Imaging Report ---
INDICATION: Shortness of air, myasthenia gravis. COMPARISON: 06/11/2020 FINDINGS: Extubation has been performed in the interim. There are old right rib deformities. No focal consolidation. The heart size upper limits but similar to the prior. The lungs themselves are clear on follow-up. IMPRESSION: Clear lungs on follow-up. Stable lung volumes post extubation, no adverse development. Dictated by: Dictated on workstation # [id number]
[2020-07-09 17:09] LABS: CHLORIDE 103 MMOL/L (98-107); POTASSIUM 4.6 MMOL/L (3.6-5.0); SODIUM 137 MMOL/L (135-145)
[2020-07-09 17:10] LABS: CALCIUM 9.2 MG/DL (8.5-10.1)
[2020-07-09 17:11] LABS: GLUCOSE 364 MG/DL (70-105); TOTAL PROTEIN 7.8 GM/DL (6.4-8.2)
[2020-07-09 17:12] LABS: CARBON DIOXIDE 22 MMOL/L (21-32)
[2020-07-09 17:13] LABS: BILIRUBIN,TOTAL 0.8 MG/DL (0.1-1.0)
[2020-07-09 17:14] LABS: ALKALINE PHOSPHATASE 49 U/L (40-136)
[2020-07-09 17:15] LABS: CREATININE SERUM 1.57 MG/DL (0.60-1.30); GFR ESTIMATED 45
[2020-07-09 17:16] LABS: BUN/CREATININE RATIO 15
[2020-07-09 17:18] LABS: ALANINE AMINOTRANSFERASE 114 U/L (0-55)
[2020-07-09 17:23] LABS: BAND NEUTROPHILS 0 %; BASOPHILS % (MANUAL) 0 %; EOSINOPHILS % (MANUAL) 0 %; LYMPHOCYTES % (MANUAL) 9 %; MONOCYTES % (MANUAL) 1 %; NEUTROPHILS % (MANUAL) 90 %; RBC MORPH NORMAL
--- NOTE | 2020-07-09 17:49 | NUR ---
STATES SHE ATTEMPTED THREE TIMES FOR A CENTRAL LINE.
--- NOTE | 2020-07-09 17:57 | NUR ---
ATTEMPT TO CALL WITH NO ANSWER.
--- NOTE | 2020-07-09 18:19 | NUR ---
PT'S CALLED ET UPDATE GIVEN.
--- NOTE | 2020-07-09 18:20 | NUR ---
DR TALKING WITH SERA AT THIS TIME.
--- NOTE | 2020-07-09 18:46 | NUR ---
DR IN WITH PT AT THIS TIME.
--- NOTE | 2020-07-09 18:55 | NUR ---
REPORT GIVEN TO LAUREN.
--- NOTE | 2020-07-09 19:00 | NUR ---
Recieved report from PAUL Londono to assume care of pt at this time.
[2020-07-09] MEDS ORDERED: inSUlin ASPART (NovoLOG) 1 UNIT/0.01 ML (CHARGE PER UNIT) SC ONE (19:15)
--- NOTE | 2020-07-09 21:00 | NUR ---
Pt report given to AXEL Houston for pt transfer to [facility]. Upon arrival pt to [facility].
[2020-07-09 21:10] VITALS: BP 151/89
--- NOTE | 2020-07-09 21:15 | NUR ---
Attempted to contacte spouse, Ginger, regarding pt transfer to [facility] with no answer.
--- NOTE | 2020-07-09 21:20 | NUR ---
Spouse, Ginger, contacted this RN. Ginger updated regarding pt transfer to [facility] room [id number]. Ginger voices no questions or concerns.
== END 2020-07-09 21:10 | disposition short-term general hospital (02) ==
LOC: EDUNIT# 16:02 → ER 16:04
DX: G70.00 Myasthenia gravis without (acute) exacerbation (principal); E11.9 Type 2 diabetes mellitus without complications; E78.00 Pure hypercholesterolemia, unspecified; I10 Essential (primary) hypertension; I25.10 Atherosclerotic heart disease of native coronary artery without angina pectoris; K21.9 Gastro-esophageal reflux disease without esophagitis; Z82.61 Family history of arthritis; Z83.3 Family history of diabetes mellitus; Z82.49 Family history of ischemic heart disease and other diseases of the circulatory system; Z80.1 Family history of malignant neoplasm of trachea, bronchus and lung; Z95.5 Presence of coronary angioplasty implant and graft; Z86.73 Personal history of transient ischemic attack (TIA), and cerebral infarction without residual deficits; Z88.5 Allergy status to narcotic agent; Z88.8 Allergy status to other drugs, medicaments and biological substances; Z95.9 Presence of cardiac and vascular implant and graft, unspecified; Z79.4 Long term (current) use of insulin; Z79.82 Long term (current) use of aspirin
CPT/HCPCS: 36415; 71045; 80053; 82553; 84484; 85007; 85027; 93005

== ENCOUNTER → 2020-07-16 | Outpatient (CLI) | payer MEDICARE, MEDICAID ==
[2020-07-16 14:36] LABS: POTASSIUM 4.5 MMOL/L (3.6-5.0)
[2020-07-16 14:37] LABS: CALCIUM 9.1 MG/DL (8.5-10.1)
[2020-07-16 14:41] LABS: CREATININE SERUM 2.02 MG/DL (0.60-1.30)
== END ==
LOC: LAB 14:08
PROVIDERS: ATTEND Internal Medicine Cardiovascular Disease
DX: I25.10 Atherosclerotic heart disease of native coronary artery without angina pectoris (principal); I11.0 Hypertensive heart disease with heart failure; I44.1 Atrioventricular block, second degree; I50.21 Acute systolic (congestive) heart failure; I25.5 Ischemic cardiomyopathy; E78.2 Mixed hyperlipidemia
CPT/HCPCS: 36415; 80048

== ENCOUNTER → 2020-07-17 | Day surgery (SDC) | payer MEDICARE, MEDICAID ==
[~2020-07-17] VITALS: Ht 172.7 cm; Wt 95.0 kg
[~2020-07-17] MED LIST changes: +LIDOCAINE 1% INJ 20 ML 20 ML VIAL ONE
[2020-07-17 12:14] VITALS: BP 139/81
--- NOTE | 2020-07-17 19:40 | OPERATIVE REPORT ---
DATE OF SERVICE: 07/17/2020 PREOPERATIVE DIAGNOSIS: Bradycardia. POSTOPERATIVE DIAGNOSIS: Bradycardia. PROCEDURE: Implantable loop recorder implantation. INDICATIONS: The patient is a 64-year-old man who was found to have profound bradycardia during a hospitalization at [facility]. It appears that the bradycardic episode may have been during an episode of sleep apnea. Because of the bradycardia was profound and the concern is that he may have intermittent high-grade atrioventricular block, implantable loop recorder implantation is advised. Informed consent was obtained. DESCRIPTION OF PROCEDURE: [facility] The left prepectoral area was prepared and draped in the usual sterile fashion. The tools provided with the implantable loop recorder were used to make a pocket anterior to the fourth intercostal space into which the RoboEdtronic Reveal LINQ device was placed and the skin edges were closed with Dermabond and Steri-Strips. The serial number of the device [id number]. The patient tolerated the procedure well. Job ID: [id number] DocumentID: [id number] Dictated Date: 07/17/2020 13:21:14 Skin Tanner Date: 07/17/2020 19:39:36 Dictated By: RANJAN CABRERA MD, MA, FACP, FACC,
== END ==
LOC: CATH 11:57
PROVIDERS: ATTEND Internal Medicine Cardiovascular Disease
DX: R00.1 Bradycardia, unspecified (principal); I11.0 Hypertensive heart disease with heart failure; I50.21 Acute systolic (congestive) heart failure; I25.119 Atherosclerotic heart disease of native coronary artery with unspecified angina pectoris; M10.9 Gout, unspecified; E78.5 Hyperlipidemia, unspecified; G47.33 Obstructive sleep apnea (adult) (pediatric); I44.1 Atrioventricular block, second degree; E11.51 Type 2 diabetes mellitus with diabetic peripheral angiopathy without gangrene; E66.9 Obesity, unspecified; Z68.31 Body mass index [BMI] 31.0-31.9, adult; Z79.82 Long term (current) use of aspirin; Z79.899 Other long term (current) drug therapy; Z88.5 Allergy status to narcotic agent; Z88.8 Allergy status to other drugs, medicaments and biological substances; Z80.9 Family history of malignant neoplasm, unspecified
CPT/HCPCS: 33285; C1764

== ENCOUNTER → 2020-07-23 | Outpatient (CLI) | payer MEDICARE, MEDICAID ==
[~2020-07-23] MED LIST changes: +CELE100C84 PO; -LIDOCAINE 1% INJ 20 ML 20 ML VIAL ONE; +MYCO500T34 PO; +NF-PYRD60T PO; +PRD10T PO
[2020-07-23 14:52] LABS: CREATININE SERUM 1.9 MG/DL (0.60-1.30)
[2020-07-23 14:54] LABS: MAGNESIUM 1.7 MG/DL (1.6-2.4)
== END ==
LOC: LAB 14:07
PROVIDERS: ATTEND Internal Medicine Cardiovascular Disease
DX: I25.10 Atherosclerotic heart disease of native coronary artery without angina pectoris (principal); I65.23 Occlusion and stenosis of bilateral carotid arteries; E11.9 Type 2 diabetes mellitus without complications; I10 Essential (primary) hypertension; I73.89 Other specified peripheral vascular diseases; I49.8 Other specified cardiac arrhythmias; I44.1 Atrioventricular block, second degree; E78.5 Hyperlipidemia, unspecified; G47.33 Obstructive sleep apnea (adult) (pediatric)
CPT/HCPCS: 36415; 80048; 83735

== ENCOUNTER 2020-07-25 05:33 | Outpatient (RCR) | payer MEDICARE, MEDICAID ==
[~2020-07-25] VITALS: Ht 172.7 cm; Wt 95.0 kg
[~2020-07-25 05:33] MED LIST changes: -COLC0.6T56 PO; +COLC0.6T59 PO
== END 2020-07-25 09:41 | disposition home or self-care (01) ==
LOC: PREOP 05:33
PROVIDERS: ATTEND Specialist
DX: Z01.812 Encounter for preprocedural laboratory examination (principal); H26.9 Unspecified cataract; Z20.828 Contact with and (suspected) exposure to other viral communicable diseases
CPT/HCPCS: 87635

== ENCOUNTER 2020-07-27 06:58 | Day surgery (SDC) | payer MEDICARE, MEDICAID ==
[~2020-07-27] VITALS: Ht 172.7 cm; Wt 95.0 kg
[2020-07-27] MEDS ORDERED: MIDAZOLAM 2 MG/2 ML (VERSED) VIAL ONE (07:11)
[2020-07-27] MEDS ORDERED: TIMOLOL MALEATE 0.5% 5 ML (TIMOPTIC) BTL OU PRN (07:15)
[2020-07-27] MEDS ORDERED: POVIDONE (BETADINE) OPHTH SOLN 5% 30 ML OP ONE (07:15)
[2020-07-27] MEDS ORDERED: MOXIFLOXACIN OPHTH SOLN 5 MG/ML 0.3 ML SYRINGE OP ONE (07:15)
[2020-07-27] MEDS ORDERED: LIDOCAINE PF 1% 2 ML VIAL IR PRN (07:15)
[2020-07-27 07:17] VITALS: BP 105/93
[2020-07-27] MEDS: TETRACAINE 0.5% OPHTH SOLN 4 ML BTL (SINGLE DOSE ONLY) OU PRN ×4 (07:19→07:40)
[2020-07-27] MEDS: PHENYLEPHRINE 10% OPHTH (NEO-SYN) 5 ML BTL OU SCH ×3 (07:30→07:40)
[2020-07-27] MEDS: TROPICAMIDE 1% OPH SOLN (MYDRIACYL) 15 ML BTL OP SCH ×3 (07:30→07:41)
[2020-07-27 07:35] VITALS: BP 105/93
--- NOTE | 2020-07-27 08:12 | Ophthalmologist Pre-Op Note ---
Pre-Operative Progress Note H&P Reviewed The H&P was reviewed, patient examined and no changes noted. Date H&P Reviewed: Jul 27, 2020 Time H&P Reviewed: 08:11 Pre-Op Dx Cataract, Right Eye NAM SAN MD Jul 27, 2020 08:11
--- NOTE | 2020-07-27 08:37 | Ophthalmology Operative Report ---
Cataract removal/placement IOL PREOPERATIVE DIAGNOSIS: Cataract Right Eye POSTOPERATIVE DIAGNOSIS: Cataract Right Eye PROCEDURE: Cataract removal and placement of posterior chamber implant, right eye SURGEON: Andreas San ANESTHESIA: Topical with sedation COMPLICATIONS: None ESTIMATED BLOOD LOSS: Minimal DESCRIPTION OF PROCEDURE: After proper informed consent was obtained, the patient, a 64 male, was taken to the Operating Room and the right eye was anesthetized with tetracaine. The right eye was then prepped and draped in the usual manner. A wire lid speculum was placed. A paracentesis was made at the left hand position. Preservative free lidocaine was injected into the anterior chamber followed by viscoelastic. A clear corneal incision was made in the temporal position. A capsulorrhexis was preformed and the central nuclear and cortical material were removed. The posterior capsule was polished and Markos 16.5 [id number] IOL was placed into the capsular bag. The residual viscoelastic was aspirated and balanced saline solution was injected into the anterior chamber. Moxifloxacin was injected into the anterior chamber. The wound was checked and found to be water tight. The patient tolerated the procedure well without complications. ANDREAS SAN MD Jul 27, 2020 08:37
[2020-07-27 08:50] VITALS: BP 159/98
[2020-07-27] MEDS ORDERED: acetaZOLAMIDE ER 500 MG CAP (DIAMOX SEQUELS) PO ONE (09:30)
== END 2020-07-27 08:50 | disposition home or self-care (01) ==
LOC: SDC 06:58
PROVIDERS: ATTEND Specialist
DX: H25.11 Age-related nuclear cataract, right eye (principal); E11.36 Type 2 diabetes mellitus with diabetic cataract; I10 Essential (primary) hypertension; I25.10 Atherosclerotic heart disease of native coronary artery without angina pectoris; K21.9 Gastro-esophageal reflux disease without esophagitis; M19.90 Unspecified osteoarthritis, unspecified site; Z79.4 Long term (current) use of insulin; Z79.899 Other long term (current) drug therapy; Z88.5 Allergy status to narcotic agent; Z88.8 Allergy status to other drugs, medicaments and biological substances; Z95.5 Presence of coronary angioplasty implant and graft
CPT/HCPCS: 66984; 82962; V2632

== ENCOUNTER 2020-08-08 05:53 | Outpatient (RCR) | payer MEDICARE, MEDICAID ==
--- NOTE | 2020-08-14 16:03 | Anesthesia-General Post-Op ---
MAC Significant Intra-Op Events Notes [id number] Patient Condition Mental Status/LOC: Same as Preop Cardiovascular: Satisfactory Nausea/Vomiting: Absent Respiratory: Satisfactory Pain: Controlled Complications: Absent Post Op Complications Complications None Follow Up Care/Instructions Patient Instructions None needed. Anesthesiology Discharge Order Discharge Order Patient is doing well, no complaints, stable vital signs, no apparent adverse anesthesia problems. No complications reported per nursing. DEAN ESTRADA CRNA Aug 14, 2020 16:03
== END 2020-08-08 10:08 | disposition home or self-care (01) ==
LOC: PREOP 05:53
PROVIDERS: ATTEND Specialist
DX: Z01.818 Encounter for other preprocedural examination (principal)

== ENCOUNTER 2020-11-26 23:26 | Emergency (ER) | payer MEDICARE, MEDICAID ==
[~2020-11-26] VITALS: Ht 172.7 cm; Wt 97.7 kg
[~2020-11-26 23:26] MED LIST changes: -ESCI5TAB12 PO; +ESCI5TAB16 PO; -OXYC-471 PO; +OXYC1TAB11 PO; -RAMI2.5C2 PO; +RAMI2.5C54 PO
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
[2020-11-27 01:05] LABS: ABG BASE EXCESS -0.8 MMOL/L (-2.5-2.5); ABG OXYGEN SATURATION 98 % (94-100); ABG PCO2 36 MMHG (35-45); ABG PH 7.42 (7.37-7.43); ABG PO2 108 MMHG (79-93); ABG TCO2 24.3 MMOL/L (21.0-31.0); ALLENS TEST YES-POS
[2020-11-27 01:06] LABS: INSPIRED O2 2L; PATIENT TEMP 36.4; VENTILATOR NO
[2020-11-27 01:30] LABS: BASOPHILS % (AUTO) 0 % (0-10); EOSINOPHILS % (AUTO) 4 % (0-10); HEMOGLOBIN 10.9 g/dL (13.3-17.7); MEAN CORPUSCULAR HEMOGLOBIN 23 pg (25-34)
[2020-11-27 01:32] LABS: EOSINOPHILS # (AUTO) 0.4 10^3/uL (0.0-0.3); HEMATOCRIT 36 % (40-54); LYMPHOCYTES # (AUTO) 1.4 10^3/uL (1.0-4.0); LYMPHOCYTES % (AUTO) 13 % (12-44); MEAN CORPUSCULAR HGB CONC 30 g/dL (32-36); MEAN CORPUSCULAR VOLUME 78 fL (80-99); MEAN PLATELET VOLUME 10.9 fL (9.0-12.2); MONOCYTES # (AUTO) 0.6 10^3/uL (0.0-1.0); MONOCYTES % (AUTO) 5 % (0-12); NEUTROPHILS # (AUTO) 7.9 10^3/uL (1.8-7.8); NEUTROPHILS % (AUTO) 76 % (42-75); PLATELET COUNT 201 10^3/uL (130-400); WHITE BLOOD COUNT 10.3 10^3/uL (4.3-11.0)
[2020-11-27 01:46] LABS: ALBUMIN 3.7 GM/DL (3.2-4.5); BILIRUBIN,TOTAL 0.6 MG/DL (0.1-1.0); CALCIUM 8.7 MG/DL (8.5-10.1); CREATININE SERUM 1.6 MG/DL (0.60-1.30); POTASSIUM 3.7 MMOL/L (3.6-5.0); TOTAL PROTEIN 6.3 GM/DL (6.4-8.2)
[2020-11-27] MEDS ORDERED: FUROSEMIDE 40 MG/4 ML INJ (LASIX) IM ONE (03:45)
[2020-11-27 03:57] VITALS: BP 112/51
== END 2020-11-27 03:58 | disposition home or self-care (01) ==
LOC: EDUNIT# 23:26 → ER 23:28
DX: I11.0 Hypertensive heart disease with heart failure (principal); I50.9 Heart failure, unspecified; I25.10 Atherosclerotic heart disease of native coronary artery without angina pectoris; E11.9 Type 2 diabetes mellitus without complications; E78.00 Pure hypercholesterolemia, unspecified; G70.00 Myasthenia gravis without (acute) exacerbation; Z99.81 Dependence on supplemental oxygen; Z20.822 Contact with and (suspected) exposure to COVID-19; Z95.9 Presence of cardiac and vascular implant and graft, unspecified; Z95.5 Presence of coronary angioplasty implant and graft; Z87.01 Personal history of pneumonia (recurrent); Z86.73 Personal history of transient ischemic attack (TIA), and cerebral infarction without residual deficits; Z79.4 Long term (current) use of insulin; Z79.899 Other long term (current) drug therapy; Z79.52 Long term (current) use of systemic steroids; Z88.5 Allergy status to narcotic agent; Z88.8 Allergy status to other drugs, medicaments and biological substances
CPT/HCPCS: 36600; 80053; 82805; 83880; 84484; 85025; 86141; 87804; 93005; 99285; U0002; 36415; 87635

== ENCOUNTER 2020-11-27 14:02 | Outpatient (RCR) | payer MEDICARE, MEDICAID ==
[2020-11-27] MEDS ORDERED: FUROSEMIDE 40 MG/4 ML INJ (LASIX) ONE (14:21)
[2020-11-27] MEDS ORDERED: FUROSEMIDE 40 MG/4 ML INJ (LASIX) IM ONE (14:30)
[2020-11-28] MEDS ORDERED: FUROSEMIDE 40 MG/4 ML INJ (LASIX) IM SCH (09:00)
[2020-12-16] MEDS ORDERED: DULO30CA49 PO (16:46)
[2020-12-16] MEDS ORDERED: PENI500T PO (16:46)
[2020-12-16] MEDS ORDERED: FURO40TA4 PO (16:46)
[2020-12-17] MEDS ORDERED: LOSA25TA41 PO (09:14)
[2020-12-17] MEDS ORDERED: INSU100I34 SC (09:14)
[2020-12-17] MEDS ORDERED: PRED5TAB PO (09:14)
[2020-12-17] MEDS ORDERED: METO50TA7 PO (09:14)
[2020-12-17] MEDS ORDERED: ATOR80TA76 PO (09:14)
[2020-12-17] MEDS ORDERED: GBPN600T PO (09:14)
[2020-12-17] MEDS ORDERED: FEBU40TA3 PO (09:14)
[2020-12-17] MEDS ORDERED: OMEG-109 PO (09:14)
[2020-12-17] MEDS ORDERED: ASPI-999 PO (09:14)
[2020-12-17] MEDS ORDERED: ISOS30TA82 PO (09:14)
[2020-12-17] MEDS ORDERED: CHOL100048 PO (09:14)
[2020-12-17] MEDS ORDERED: SPIR25TA5 PO (09:14)
[2020-12-17] MEDS ORDERED: [UNRECOGNIZED DRUG - CODE] IV (09:14)
[2020-12-17] MEDS ORDERED: IMMU40VI IJ (09:28)
[2020-12-17] MEDS ORDERED: ECUL300V IV (09:28)
[2020-12-18] MEDS ORDERED: GBPN600T PO (09:17)
[2021-01-03] MEDS ORDERED: ISOS60TA63 PO (09:01)
[2021-01-03] MEDS ORDERED: SACU1TAB2 PO (09:01)
[2021-01-03] MEDS ORDERED: HYDR2TAB30 PO (09:01)
[2021-01-03] MEDS ORDERED: MILR20PI IV (09:01)
[2021-01-03] MEDS ORDERED: INSU100I14 SQ (09:01)
[2021-01-03] MEDS ORDERED: HYDR2TAB6 PO (09:44)
[2021-01-03] MEDS ORDERED: GBPN600T PO (09:44)
[2021-01-03] MEDS ORDERED: MYCO500T3 PO (09:44)
== END 2021-02-25 ==
LOC: SDC 14:02
PROVIDERS: ATTEND Emergency Medicine
DX: I50.9 Heart failure, unspecified (principal)

== ENCOUNTER 2020-11-27 14:35 | Emergency (ER) | payer MEDICARE, MEDICAID ==
[~2020-11-27] VITALS: Ht 175 cm; Wt 95.0 kg
[2020-11-27] MEDS ORDERED: LIDOCAINE 1% INJ 20 ML 20 ML VIAL ONE (14:48)
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
[2020-11-27] MEDS ORDERED: KCL 10 MEQ TAB (MICRO K) PO ONE (15:15)
[2020-11-27] MEDS ORDERED: FUROSEMIDE 40 MG/4 ML INJ (LASIX) IVP ONE (15:15)
[2020-11-27 15:16] LABS: BASOPHILS % (AUTO) 0 % (0-10); EOSINOPHILS # (AUTO) 0.1 10^3/uL (0.0-0.3); EOSINOPHILS % (AUTO) 1 % (0-10); HEMATOCRIT 41 % (40-54); HEMOGLOBIN 12.4 g/dL (13.3-17.7); LYMPHOCYTES # (AUTO) 0.5 X 10^3 (1.0-4.0); LYMPHOCYTES % (AUTO) 4 % (12-44); MEAN CORPUSCULAR HEMOGLOBIN 24 pg (25-34); MEAN CORPUSCULAR HGB CONC 30 g/dL (32-36); MEAN CORPUSCULAR VOLUME 78 fL (80-99); MONOCYTES # (AUTO) 0.2 X 10^3 (0.0-1.0); MONOCYTES % (AUTO) 2 % (0-12); NEUTROPHILS # (AUTO) 10.5 X 10^3 (1.8-7.8); NEUTROPHILS % (AUTO) 93 % (42-75); PLATELET COUNT 337 10^3/uL (130-400); WHITE BLOOD COUNT 11.3 10^3/uL (4.3-11.0)
--- NOTE | 2020-11-27 15:21 | Diagnostic Imaging Report ---
HISTORY: Weakness, shortness of air. COMPARISON: 07/09/2020. TECHNIQUE: Frontal view of the chest. FINDINGS: There is moderate cardiomegaly. secured entrance monitor device is noted. There is mild central vascular congestion. There is no pleural effusion or pneumothorax. Small radiopaque hyperdensities are again seen over the right lung base, likely foreign bodies. There are old right-sided rib fractures. IMPRESSION: 1. Stable cardiomegaly with mild central vascular congestion. Dictated by: Dictated on workstation # [id number]
[2020-11-27 15:26] LABS: ALBUMIN 4.4 GM/DL (3.2-4.5)
[2020-11-27 15:27] LABS: POTASSIUM 4.3 MMOL/L (3.6-5.0)
[2020-11-27 15:28] LABS: CALCIUM 9.8 MG/DL (8.5-10.1)
[2020-11-27 15:31] LABS: BILIRUBIN,TOTAL 0.9 MG/DL (0.1-1.0)
[2020-11-27 15:33] LABS: CREATININE SERUM 1.67 MG/DL (0.60-1.30)
[2020-11-27 15:35] LABS: MAGNESIUM 1.7 MG/DL (1.6-2.4)
[2020-11-27 15:54] LABS: AMPHETAMINE SCREEN, URINE NEGATIVE (NEGATIVE); BARBITURATE SCREEN URINE NEGATIVE (NEGATIVE); BENZODIAZEPINES SCREEN URINE NEGATIVE (NEGATIVE); CANNABINOID SCREEN, URINE NEGATIVE (NEGATIVE); COCAINE SCREEN URINE NEGATIVE (NEGATIVE); METHADONE STAT NEGATIVE (NEGATIVE); METHAMPHETAMINE SCREEN URINE S POSITIVE (NEGATIVE); OPIATE SCREEN URINE NEGATIVE (NEGATIVE); OXYCODONE STAT NEGATIVE (NEGATIVE); PROPOXYPHENE STAT NEGATIVE (NEGATIVE); TRICYCLIC ANTIDEPRESSANTS SCRE NEGATIVE (NEGATIVE)
[2020-11-27 16:01] LABS: BILIRUBIN,URINE NEGATIVE (NEGATIVE); CLARITY,URINE CLEAR; COLOR,URINE YELLOW; GLUCOSE, URINE (UA) 3+ (NEGATIVE); KETONES,URINE NEGATIVE (NEGATIVE); LEUKOCYTE ESTERASE ,URINE NEGATIVE (NEGATIVE); NITRITE,URINE NEGATIVE (NEGATIVE); PH,URINE 5.5 (5-9); PROTEIN,URINE NEGATIVE (NEGATIVE)
[2020-11-27 16:16] LABS: AMORPHOUS SEDIMENT,UR RARE AMOR URATES /LPF; BACTERIA,URINE TRACE /HPF
[2020-11-27 16:43] LABS: EOSINOPHILS % (MANUAL) 1 %; LYMPHOCYTES % (MANUAL) 5 %; MONOCYTES % (MANUAL) 1 %; NEUTROPHILS % (MANUAL) 93 %; RBC MORPH NORMAL
[2020-11-27 18:52] VITALS: BP 132/72
== END 2020-11-27 18:55 | disposition short-term general hospital (02) ==
LOC: EDUNIT# 14:35 → ER 14:36
DX: I11.0 Hypertensive heart disease with heart failure (principal); I50.9 Heart failure, unspecified; G70.00 Myasthenia gravis without (acute) exacerbation; I25.10 Atherosclerotic heart disease of native coronary artery without angina pectoris; E11.9 Type 2 diabetes mellitus without complications; E78.00 Pure hypercholesterolemia, unspecified; K21.9 Gastro-esophageal reflux disease without esophagitis; Z87.01 Personal history of pneumonia (recurrent); Z86.73 Personal history of transient ischemic attack (TIA), and cerebral infarction without residual deficits; Z79.4 Long term (current) use of insulin; Z79.52 Long term (current) use of systemic steroids; Z88.5 Allergy status to narcotic agent; Z88.8 Allergy status to other drugs, medicaments and biological substances; Z79.899 Other long term (current) drug therapy; Z95.5 Presence of coronary angioplasty implant and graft; Z95.9 Presence of cardiac and vascular implant and graft, unspecified
CPT/HCPCS: 36415; 71045; 80053; 80306; 81000; 83735; 83880; 84484; 85007; 85027; 93005

== ENCOUNTER 2020-12-15 20:10 | Inpatient (IN) | payer MEDICARE, MEDICAID ==
[~2020-12-15] VITALS: Ht 172.7 cm; Wt 94.5 kg
[2020-12-15 20:22] LABS: BASOPHILS % (AUTO) 0 % (0-10); EOSINOPHILS # (AUTO) 0.1 10^3/uL (0.0-0.3); EOSINOPHILS % (AUTO) 1 % (0-10); HEMATOCRIT 43 % (40-54); LYMPHOCYTES # (AUTO) 1.3 10^3/uL (1.0-4.0); LYMPHOCYTES % (AUTO) 11 % (12-44); MEAN CORPUSCULAR HEMOGLOBIN 24 pg (25-34); MEAN CORPUSCULAR HGB CONC 30 g/dL (32-36); MEAN CORPUSCULAR VOLUME 79 fL (80-99); MEAN PLATELET VOLUME 10.2 fL (9.0-12.2); MONOCYTES # (AUTO) 0.7 10^3/uL (0.0-1.0); MONOCYTES % (AUTO) 6 % (0-12); NEUTROPHILS # (AUTO) 9.8 10^3/uL (1.8-7.8); NEUTROPHILS % (AUTO) 82 % (42-75); PLATELET COUNT 338 10^3/uL (130-400)
[2020-12-15 20:32] LABS: PROTHROMBIN TIME PATIENT 13.1 SEC (12.2-14.7)
--- NOTE | 2020-12-15 20:36 | Diagnostic Imaging Report ---
INDICATION: Chest pain. EXAMINATION: AP view of the chest was obtained. COMPARISON: Study of 11/27/2020. FINDINGS: There is suboptimal inspiration which limits evaluation. There has been interval placement of left chest wall pacemaker/defibrillator device. There is also increasing density in the perihilar regions which could be due to edema. No pneumothorax identified. Tunneled right jugular catheter reaches the mid superior vena cava. No pneumothorax is seen. IMPRESSION: Suboptimal inspiration with increasing perihilar density likely due to pulmonary edema. This may represent cardiac decompensation and clinical correlation would be useful. Dictated by: Dictated on workstation # [id number]
[2020-12-15 20:40] LABS: BILIRUBIN,TOTAL 0.4 MG/DL (0.1-1.0); CALCIUM 9.6 MG/DL (8.5-10.1); CREATININE SERUM 1.82 MG/DL (0.60-1.30); MAGNESIUM 1.7 MG/DL (1.6-2.4); POTASSIUM 4.6 MMOL/L (3.6-5.0); TOTAL PROTEIN 8.1 GM/DL (6.4-8.2)
[2020-12-15] MEDS ORDERED: morphine INJ 10 MG/ML 1ML (SYR OR VIAL) IVP STA ×2 (20:47→21:21)
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
[2020-12-15] MEDS ORDERED: ENOXAPARIN 100 MG/1 ML (LOVENOX) SYR SC ONE (21:30)
[2020-12-15] MEDS ORDERED: FUROSEMIDE 40 MG/4 ML INJ (LASIX) IVP ONE (21:30)
[2020-12-15 21:58] LABS: BILIRUBIN,URINE NEGATIVE (NEGATIVE); CLARITY,URINE CLEAR; COLOR,URINE YELLOW; GLUCOSE, URINE (UA) 3+ (NEGATIVE); KETONES,URINE NEGATIVE (NEGATIVE); LEUKOCYTE ESTERASE ,URINE NEGATIVE (NEGATIVE); NITRITE,URINE NEGATIVE (NEGATIVE); PH,URINE 5.5 (5-9); PROTEIN,URINE NEGATIVE (NEGATIVE)
[2020-12-15 22:03] LABS: AMPHETAMINE SCREEN, URINE NEGATIVE (NEGATIVE); BARBITURATE SCREEN URINE NEGATIVE (NEGATIVE); BENZODIAZEPINES SCREEN URINE POSITIVE (NEGATIVE); CANNABINOID SCREEN, URINE NEGATIVE (NEGATIVE); COCAINE SCREEN URINE NEGATIVE (NEGATIVE); METHADONE STAT NEGATIVE (NEGATIVE); METHAMPHETAMINE SCREEN URINE S NEGATIVE (NEGATIVE); OPIATE SCREEN URINE POSITIVE (NEGATIVE); OXYCODONE STAT NEGATIVE (NEGATIVE); PROPOXYPHENE STAT NEGATIVE (NEGATIVE); TRICYCLIC ANTIDEPRESSANTS SCRE NEGATIVE (NEGATIVE)
[2020-12-15 22:09] LABS: BACTERIA,URINE NEGATIVE /HPF; SQUAMOUS EPITHELIAL CELL,UR RARE /HPF
[2020-12-16] MEDS ORDERED: morphine INJ 4 MG/ML 1 ML (VIAL/SYRINGE) ONE (00:12)
[2020-12-16] MEDS ORDERED: ONDANSETRON 4 MG/2 ML (SDV) Z0FRAN IVP PRN ×2 (00:15→00:30)
[2020-12-16] MEDS ORDERED: ACETAMINOPHEN 325 MG TABLET PO PRN (00:15)
[2020-12-16] MEDS: morphine INJ 4 MG/ML 1 ML (VIAL/SYRINGE) IV PRN ×7 (00:22→23:45)
[2020-12-16] MEDS ORDERED: PATIENT MAY USE OWN MEDS, ALL PO SCH (00:30)
[2020-12-16 00:57] VITALS: BP 133/71
[2020-12-16] MEDS ORDERED: RT-ALBUTEROL SULF 2.5 MG/3 ML PRE-MIX VIAL INH PRN (01:15)
[2020-12-16 03:25] LABS: BASOPHILS % (AUTO) 0 % (0-10); EOSINOPHILS # (AUTO) 0.2 10^3/uL (0.0-0.3); EOSINOPHILS % (AUTO) 2 % (0-10); HEMATOCRIT 43 % (40-54); HEMOGLOBIN 12.6 g/dL (13.3-17.7); LYMPHOCYTES # (AUTO) 1.7 10^3/uL (1.0-4.0); LYMPHOCYTES % (AUTO) 14 % (12-44); MEAN CORPUSCULAR HEMOGLOBIN 24 pg (25-34); MEAN CORPUSCULAR HGB CONC 30 g/dL (32-36); MEAN CORPUSCULAR VOLUME 80 fL (80-99); MEAN PLATELET VOLUME 10.3 fL (9.0-12.2); MONOCYTES # (AUTO) 0.8 10^3/uL (0.0-1.0); MONOCYTES % (AUTO) 7 % (0-12); NEUTROPHILS % (AUTO) 76 % (42-75); PLATELET COUNT 305 10^3/uL (130-400); WHITE BLOOD COUNT 11.8 10^3/uL (4.3-11.0)
[2020-12-16 03:51] LABS: ALBUMIN 3.9 GM/DL (3.2-4.5); BILIRUBIN,TOTAL 0.3 MG/DL (0.1-1.0); CALCIUM 9.4 MG/DL (8.5-10.1); CREATININE SERUM 1.86 MG/DL (0.60-1.30); POTASSIUM 4.4 MMOL/L (3.6-5.0); TOTAL PROTEIN 7.5 GM/DL (6.4-8.2)
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
[2020-12-16] MEDS: inSUlin ASPART (NovoLOG) 1 UNIT/0.01 ML (CHARGE PER UNIT) SC SCH ×7 (06:00→23:40)
--- NOTE | 2020-12-16 06:09 | Diagnostic Imaging Report ---
EXAMINATION: Portable erect AP chest at 3:55 AM INDICATION: Unstable angina The cardiomegaly and the left-sided pacemaker seen on the prior exam of 12/15/2020 are again evident and not significantly changed. However, the central pulmonary vascularity is not as prominent as on the prior study and both upper lungs do seem better aerated. The lung bases also remain generally clear. The mediastinum is not widened. The osseous structures are intact. The central venous catheter on the right is unchanged in position. IMPRESSION: The appearance of the chest has improved as the pulmonary congestion noted previously has essentially resolved. Both upper lungs also seem better aerated. Dictated by: Dictated on workstation # [id number]
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
[2020-12-16] MEDS ORDERED: PYRIDOSTIGMINE 60 MG PO SCH (09:00)
[2020-12-16] MEDS: predniSONE 10 MG TAB PO SCH (09:11)
[2020-12-16] MEDS: ASPIRIN E.C. 81 MG (ECOTRIN) TAB PO SCH (09:11)
[2020-12-16] MEDS: ENOXAPARIN 100 MG/1 ML (LOVENOX) SYR SC SCH ×2 (09:12→20:22)
--- NOTE | 2020-12-16 10:46 | Consultation-Cardiology ---
HPI-Cardiology Cardiology Consultation Date of Consultation 12/16/20 Date of Admission Time Seen by Provider: 10:37 Indication: Chest pain, dyspnea HPI 65 years old gentleman with a history of congestive heart failure, severe ischemic cardiomyopathy, deemed inoperable, has been on transplant list. Patient is maintained on milrinone continuous drip for the past 2 weeks. He was discharged last week from . Reporting episode of chest pain dull in nature across his chest, no palpitation. No syncope or near syncopal episodes. No claudications. On my evaluation he was still having active chest pain, borderline tachycardic. Reporting chest pain on deep inspiration. Home Medications & Allergies Allergies: Coded Allergies: albumin colloid, human (Verified Allergy, Unknown, 12/15/20) carvedilol (Unverified Allergy, Unknown, 01/22/10) codeine (Unverified Allergy, Unknown, PATIENT HAS RECEIVED MORPHINE WITHOUT ISSUE, 06/08/15) trazodone (Verified Allergy, Unknown, 12/15/20) Home Medication List Reviewed: Yes GLR-Wpptgm-Sdsstz Hx Patient Social History Marital Status: Recreational Drug Use: No (denies) Drug of Choice: PT HAS TESTED + FOR AMPHETAMINES/METHAMPHETAMINES Smoking Status: Never a Smoker 2nd Hand Smoke Exposure: No Recent Hopitalizations: Yes (dc/d 4/6 ppm placement) Have you traveled recently?: No Alcohol Use?: No Immunizations Up To Date Tetanus Booster (TDap): More than 5yrs Date of Pneumonia Vaccine: Apr 14, 2017 Date of Influenza Vaccine: Jul 18, 2020 Past Medical History Discussed below Family Medical History Significant Family History: No Pertinent Family Hx, Heart Disease, Cancer, Jenna betes, Stroke Family History: Alcoholism 19 FATHER Cancer 19 FATHER 19 MOTHER Chest pain 19 MOTHER Family history: Arthritis (grandmother) G8 SISTER Family history: Cardiovascular disease 19 MOTHER Family history: Diabetes mellitus G8 SISTER Family history: Hypertension 19 FATHER 19 MOTHER Hearing loss 19 FATHER Heart disease 19 MOTHER Malignant neoplasm of lung 19 MOTHER Myocardial infarction 19 MOTHER Stroke 19 FATHER Review of Systems-General Review of Systems Constitutional: see HPI; No chills, No fever; malaise, weakness EENTM: see HPI, no symptoms reported Respiratory: see HPI; No cough; dyspnea on exertion; No hemoptysis, No orthopnea, No phlegm; short of breath; No stridor, No wheezing, No other Cardiovascular: see HPI, chest pain, edema; No Hx of Intervention, No palpitations, No syncope, No vascular heart diseas, No other Gastrointestinal: no symptoms reported, see HPI Genitourinary: no symptoms reported, see HPI Musculoskeletal: see HPI; No back pain, No joint pain Skin: no symptoms reported, see HPI Psychiatric/Neurological: No Symptoms Reported, See HPI All Other Systems Reviewed Negative Unless Noted: Yes Reviewed Test Results Reviewed Test Results Lab Laboratory Tests Test 12/15/20 20:15 12/15/20 21:42 12/16/20 00:27 12/16/20 03:10 Range/Units White Blood Count 12.0 H 11.8 H 4.3-11.0 10^3/uL Red Blood Count 5.44 5.33 4.30-5.52 10^6/uL Hemoglobin 13.0 L 12.6 L 13.3-17.7 g/dL Hematocrit 43 43 40-54 % Mean Corpuscular Volume 79 L 80 80-99 fL Mean Corpuscular Hemoglobin 24 L 24 L 25-34 pg Mean Corpuscular Hemoglobin Concent 30 L 30 L 32-36 g/dL Red Cell Distribution Width 18.6 H 18.5 H 10.0-14.5 % Platelet Count 338 305 130-400 10^3/uL Mean Platelet Volume 10.2 10.3 9.0-12.2 fL Immature Granulocyte % (Auto) 1 1 % Neutrophils (%) (Auto) 82 H 76 H 42-75 % Lymphocytes (%) (Auto) 11 L 14 12-44 % Monocytes (%) (Auto) 6 7 0-12 % Eosinophils (%) (Auto) 1 2 0-10 % Basophils (%) (Auto) 0 0 0-10 % Neutrophils # (Auto) 9.8 H 9.0 H 1.8-7.8 10^3/uL Lymphocytes # (Auto) 1.3 1.7 1.0-4.0 10^3/uL Monocytes # (Auto) 0.7 0.8 0.0-1.0 10^3/uL Eosinophils # (Auto) 0.1 0.2 0.0-0.3 10^3/uL Basophils # (Auto) 0.0 0.0 0.0-0.1 10^3/uL Immature Granulocyte # (Auto) 0.1 0.1 0.0-0.1 10^3/uL Prothrombin Time 13.1 12.2-14.7 SEC INR Comment 1.0 0.8-1.4 Activated Partial Thromboplast Time 34 24-35 SEC Sodium Level 134 L 135 135-145 MMOL/L Potassium Level 4.6 4.4 3.6-5.0 MMOL/L Chloride Level 99 100 98-107 MMOL/L Carbon Dioxide Level 22 20 L 21-32 MMOL/L Anion Gap 13 15 H 5-14 MMOL/L Blood Urea Nitrogen 46 H 49 H 7-18 MG/DL Creatinine 1.82 H 1.86 H 0.60-1.30 MG/DL Estimat Glomerular Filtration Rate 38 37 BUN/Creatinine Ratio 25 26 Glucose Level 246 H 145 H 70-105 MG/DL Calcium Level 9.6 9.4 8.5-10.1 MG/DL Corrected Calcium 9.6 9.5 8.5-10.1 MG/DL Magnesium Level 1.7 1.6-2.4 MG/DL Total Bilirubin 0.4 0.3 0.1-1.0 MG/DL Aspartate Amino Transf (AST/SGOT) 28 27 5-34 U/L Alanine Aminotransferase (ALT/SGPT) 29 30 0-55 U/L Alkaline Phosphatase 63 45 40-136 U/L Myoglobin 42.0 10.0-92.0 NG/ML Troponin I 0.055 H 0.089 H <0.028 NG/ML B-Type Natriuretic Peptide 902.8 H <100.0 PG/ML Total Protein 8.1 7.5 6.4-8.2 GM/DL Albumin 4.0 3.9 3.2-4.5 GM/DL Urine Color YELLOW Urine Clarity CLEAR Urine pH 5.5 5-9 Urine Specific [place] 1.020 1.016-1.022 Urine Protein NEGATIVE NEGATIVE Urine Glucose (UA) 3+ H NEGATIVE Urine Ketones NEGATIVE NEGATIVE Urine Nitrite NEGATIVE NEGATIVE Urine Bilirubin NEGATIVE NEGATIVE Urine Urobilinogen 0.2 < = 1.0 MG/DL Urine Leukocyte Esterase NEGATIVE NEGATIVE Urine RBC (Auto) NEGATIVE NEGATIVE Urine RBC NONE /HPF Urine WBC NONE /HPF Urine Squamous Epithelial Cells RARE /HPF Urine Crystals NONE /LPF Urine Bacteria NEGATIVE /HPF Urine Casts NONE /LPF Urine Mucus NEGATIVE /LPF Urine Culture Indicated NO Urine Opiates Screen POSITIVE H NEGATIVE Urine Oxycodone Screen NEGATIVE NEGATIVE Urine Methadone Screen NEGATIVE NEGATIVE Urine Propoxyphene Screen NEGATIVE NEGATIVE Urine Barbiturates Screen NEGATIVE NEGATIVE Ur Tricyclic Antidepressants Screen NEGATIVE NEGATIVE Urine Phencyclidine Screen NEGATIVE NEGATIVE Urine Amphetamines Screen NEGATIVE NEGATIVE Urine Methamphetamines Screen NEGATIVE NEGATIVE Urine Benzodiazepines Screen POSITIVE H NEGATIVE Urine Cocaine Screen NEGATIVE NEGATIVE Urine Cannabinoids Screen NEGATIVE NEGATIVE Glucometer 129 H 70-110 MG/DL Triglycerides Level 242 H <150 MG/DL Cholesterol Level 146 < 200 MG/DL LDL Cholesterol Direct 85 1-129 MG/DL VLDL Cholesterol 48 H 5-40 MG/DL HDL Cholesterol 38 L 40-60 MG/DL Test 12/16/20 09:20 12/16/20 10:27 Range/Units Troponin I 0.073 H <0.028 NG/ML Glucometer 132 H 70-110 MG/DL Physical Exam Physical Exam Vital Signs Vital Signs - First Documented 12/15/20 12/16/20 20:10 00:57 Temp 36.7 Pulse 98 Resp 20 B/P (MAP) 133/71 (91) FiO2 100 Capillary Refill : Greater Than 3 Seconds Height, Weight, BMI Height: 5'8.00" Weight: 205lbs. 0.0oz. 92.016743ry; 31.75 BMI Method:Stated General Appearance: No Apparent Distress, Anxious HEENT: PERRL/EOMI, Pharynx Normal, Moist Mucous Membranes Neck: Full Range of Motion, Normal Inspection Respiratory: Lungs Clear, Normal Breath Sounds, No Accessory Muscle Use, No Respiratory Distress Cardiovascular: Regular Rate, Rhythm, No Edema, Normal Peripheral Pulses Gastrointestinal: Normal Bowel Sounds, Non Tender, Soft Neurologic/Psychiatric: Alert, Oriented x3 Skin: Normal Color, Warm/Dry A/P-Cardiology Assessment/Plan Chest pain, non-ST elevation myocardial infarction, extensive coronary artery disease deemed inoperable. Conservative management is recommended. Coronary artery disease, last cardiac catheterization was done in September 2019 showing severe distal LAD stenosis where the vessel is very small, has patent stent in the mid LAD, total occlusion of the right coronary artery with mild disease in the circumflex artery. Deemed inoperable. Patient is awaiting on cardiac transplant list. Congestive heart failure, chronic compensated left ventricular systolic dysfunction, ischemic cardiomyopathy, maintained on milrinone drip, I will stop the drip for now and monitor his response Status post ICD implantation done recently at . Site is healing well. I will evaluate 2D echo Acute on chronic renal insufficiency. Continue to monitor renal function Labile hypertension, continue to monitor blood pressure Hyperlipidemia, continue to monitor Diabetes mellitus, followed and managed by primary care physician Extensive peripheral arterial disease, multiple intervention done in the past by Dr. Layton History of myasthenia gravis treated at [facility] with plasmapheresis and prednisone and Pyridostigmine History of peptic ulcer disease. Had endoscopy in 2014 Anxiety. Carotid stenosis, mild to moderate disease, last ultrasound was done in October 2016. Clinical Quality Measures AMI/AHF: ASA po Prior to arrival: Yes (324) RAMIRO GILL MD Dec 16, 2020 10:46
[2020-12-16] MEDS ORDERED: PENI500T PO (16:46)
[2020-12-16] MEDS ORDERED: DULO30CA49 PO (16:46)
[2020-12-16] MEDS ORDERED: FURO40TA4 PO (16:46)
[2020-12-16] MEDS: PANTOPRAZOLE 40 MG (PROTONIX) TAB PO SCH (20:21)
[2020-12-16] MEDS: inSUlin ASPART (NovoLOG) 1 UNIT/0.01 ML (CHARGE PER UNIT) SQ SCH (20:33)
[2020-12-16] MEDS ORDERED: PENICILLIN V POTASSIUM 500 MG PO SCH (21:00)
[2020-12-16] MEDS ORDERED: PYRIDOSTIGMINE 60 MG TAB (MESTINON) NON-FORMULARY PO SCH (21:00)
[2020-12-16] MEDS ORDERED: INSULIN DEGLUDEC 100 UNIT SQ SCH (21:00)
[2020-12-16] MEDS ORDERED: NON-FORMULARY MEDICATION 1 EA EA (Pravastatin Sodium 20 MG) PO SCH (21:00)
[2020-12-16] MEDS ORDERED: meTOprolol SUCCINATE 100 MG (TOPROL XL) TAB PO SCH (21:00)
[2020-12-16] MEDS ORDERED: cloNIDine 0.1 MG (CATAPRES) TAB PO SCH (21:00)
[2020-12-16] MEDS ORDERED: CELECOXIB 100 MG (CeleBREX) CAP PO SCH (21:00)
[2020-12-16] MEDS ORDERED: NON-FORMULARY MEDICATION 1 EA EA (Mycophenolate Mofetil (Cellcept) 500 MG) PO SCH (21:00)
[2020-12-17] MEDS: morphine INJ 4 MG/ML 1 ML (VIAL/SYRINGE) IV PRN ×4 (03:50→21:21)
[2020-12-17] MEDS: inSUlin ASPART (NovoLOG) 1 UNIT/0.01 ML (CHARGE PER UNIT) SC SCH ×5 (06:50→21:16)
[2020-12-17] MEDS: predniSONE 10 MG TAB PO SCH (06:50)
[2020-12-17] MEDS: inSUlin ASPART (NovoLOG) 1 UNIT/0.01 ML (CHARGE PER UNIT) SQ SCH ×3 (07:55→16:28)
[2020-12-17] MEDS ORDERED: amLODIPine 10 MG (NORVASC) TAB PO SCH (09:00)
[2020-12-17] MEDS ORDERED: DULoxetine 30 MG (CYMBALTA) CAP PO SCH (09:00)
[2020-12-17] MEDS ORDERED: predniSONE 10 MG TAB PO SCH (09:00)
[2020-12-17] MEDS ORDERED: CHOL100048 PO (09:14)
[2020-12-17] MEDS ORDERED: METO50TA7 PO (09:14)
[2020-12-17] MEDS ORDERED: INSU100I34 SC (09:14)
[2020-12-17] MEDS ORDERED: ATOR80TA76 PO (09:14)
[2020-12-17] MEDS ORDERED: SPIR25TA5 PO (09:14)
[2020-12-17] MEDS ORDERED: ISOS30TA82 PO (09:14)
[2020-12-17] MEDS ORDERED: LOSA25TA41 PO (09:14)
[2020-12-17] MEDS ORDERED: [UNRECOGNIZED DRUG - CODE] IV (09:14)
[2020-12-17] MEDS ORDERED: PRED5TAB PO (09:14)
[2020-12-17] MEDS ORDERED: ASPI-999 PO (09:14)
[2020-12-17] MEDS ORDERED: FEBU40TA3 PO (09:14)
[2020-12-17] MEDS ORDERED: GBPN600T PO (09:14)
[2020-12-17] MEDS ORDERED: OMEG-109 PO (09:14)
[2020-12-17] MEDS ORDERED: ECUL300V IV (09:28)
[2020-12-17] MEDS ORDERED: IMMU40VI IJ (09:28)
[2020-12-17] MEDS ORDERED: ECULIZUMAB IV SCH (10:00)
[2020-12-17] MEDS ORDERED: DEXTROSE IV SCH (10:00)
[2020-12-17] MEDS ORDERED: MILRINONE IV SCH (10:00)
[2020-12-17] MEDS ORDERED: IMMUNE GLOBULIN IJ SCH (10:00)
[2020-12-17] MEDS ORDERED: [UNRECOGNIZED DRUG - OTHER] IJ SCH (10:00)
[2020-12-17 10:16] LABS: BASOPHILS % (AUTO) 0 % (0-10); EOSINOPHILS # (AUTO) 0.2 10^3/uL (0.0-0.3); EOSINOPHILS % (AUTO) 1 % (0-10); HEMATOCRIT 41 % (40-54); HEMOGLOBIN 11.8 g/dL (13.3-17.7); LYMPHOCYTES # (AUTO) 0.6 10^3/uL (1.0-4.0); LYMPHOCYTES % (AUTO) 5 % (12-44); MEAN CORPUSCULAR HEMOGLOBIN 24 pg (25-34); MEAN CORPUSCULAR HGB CONC 29 g/dL (32-36); MEAN CORPUSCULAR VOLUME 81 fL (80-99); MEAN PLATELET VOLUME 10.1 fL (9.0-12.2); MONOCYTES # (AUTO) 0.5 10^3/uL (0.0-1.0); MONOCYTES % (AUTO) 5 % (0-12); NEUTROPHILS # (AUTO) 9.3 10^3/uL (1.8-7.8); NEUTROPHILS % (AUTO) 88 % (42-75); PLATELET COUNT 257 10^3/uL (130-400); WHITE BLOOD COUNT 10.6 10^3/uL (4.3-11.0)
--- NOTE | 2020-12-17 10:26 | Progress Note ---
YENNIFER MASON MED STUDENT 12/17/20 1026: Subjective Date Seen by a Provider: Dec 17, 2020 Time Seen by a Provider: 08:25 Subjective/Events-last exam HPI: Pt is a 65yoWM former clinic pt of Dr. Daniel with hx of Myasthenia gravis, inoperable CAD awaiting heart transplant s/p defib placement at [facility] 12/2020, PAD, DM, HTN, HLD, GERD, HFrEF, and PUD who now receives all care via [facility]. He came to [facility] ED Thursday evening with shortness of breath, chest pain, an elevated BNP (902) and troponin (0.055). He was admitted and diuresed with sig nificant improvement in respiratory status but continues to have chest pain. Patient is stable today recovering on cardiac stepdown - cardiology following. 12/17/20 Pt resting in bed; vitals WNL Continues to have chest pain; received dose of morphine early this morning ~0400 No lab work for today - will order and check CBC, CMP Dr. Hanson restarted Milrinone drip Home meds reconciled with pharmacy and will restart these today Monitor on cardiac stepdown 1 more day; potentially move to floor tomorrow Review of Systems General: No Chills, No Night Sweats; Fatigue, Appetite HEENT: No Head Aches, No Visual Changes, No Dysphasia, No Sore Throat Pulmonary: No Dyspnea, No Cough, No Pleuritic Chest Pain Cardiovascular: Chest Pain; No: Palpitations, Orthopnea, Edema Gastrointestinal: No: Nausea, Vomiting, Abdominal Pain, Diarrhea Genitourinary: No Dysuria, No Frequency, No Incontinence, No Hematuria Musculoskeletal: No: neck pain, back pain Neurological: No: Weakness, Numbness, Change in speech, Confusion Objective Exam Last Set of Vital Signs Vital Signs Date Time Temp Pulse Resp B/P (MAP) Pulse Ox O2 Delivery O2 Flow Rate FiO2 12/17/20 09:26 87 Room Air 12/17/20 07:47 36.1 77 20 121/78 (92) 12/17/20 02:21 3.00 12/16/20 00:57 100 Capillary Refill : Greater Than 3 Seconds I&O Intake and Output 12/17/20 00:00 Intake Total 850 ml Output Total 1175 ml Balance -325 ml Intake Oral 850 ml Output Urine Total 1175 ml Daily Weight Change No General: Alert, Oriented X3, Cooperative, No Acute Distress HEENT: PERRLA Neck: Supple, No JVD Lungs: Clear to Auscultation, Normal Air Movement Heart: Regular Rate, No Murmurs Abdomen: Normal Bowel Sounds, Soft, No Tenderness Extremities: No Clubbing, No Edema, Normal Pulses, No Tenderness/Swelling Skin: No Rashes Neuro: Normal Speech, Strength at 5/5 X4 Ext Psych/Mental Status: Mental Status NL, Mood NL Results Lab Laboratory Tests 12/16/20 10:27: Glucometer 132H 12/16/20 15:41: Glucometer 130H 12/16/20 20:33: Glucometer 84 12/17/20 06:48: Glucometer 161H 12/17/20 10:05: White Blood Count 10.6, Red Blood Count 5.01, Hemoglobin 11.8L, Hematocrit 41, Mean Corpuscular Volume 81, Mean Corpuscular Hemoglobin 24L, Mean Corpuscular Hemoglobin Concent 29L, Red Cell Distribution Width 18.5H, Platelet Count 257, Mean Platelet Volume 10.1, Immature Granulocyte % (Auto) 1, Neutrophils (%) (Auto) 88H, Lymphocytes (%) (Auto) 5L, Monocytes (%) (Auto) 5, Eosinophils (%) (Auto) 1, Basophils (%) (Auto) 0, Neutrophils # (Auto) 9.3H, Lymphocytes # (Auto) 0.6L, Monocytes # (Auto) 0.5, Eosinophils # (Auto) 0.2, Basophils # (Auto) 0.0, Immature Granulocyte # (Auto) 0.1 12/17/20 10:15: Glucometer 220H Microbiology 12/15/20 MRSA Screen - Final, Complete MRSA not isolated Assessment/Plan Assessment/Plan Assess & Plan/Chief Complaint ASSESSMENT: Acute CHF volume overload with acute respiratory failure - resolved Unstable angina - morphine PRN\ NSTEMI - conservative management HfrEF (15%) s/p defib placement at 12/2020 Severe CAD w/ multiple stents - awaiting heart transplant Carotid stenosis PUD Type 1 2nd Degree Heart Block Myasthenia Gravis - resume home meds; treatment by [facility] DM Insulin-dependent PAD HTN HLD HX of TIA GERD Gout Anxiety PLAN: Restart all home meds Monitor glucose Milrinone drip restarted per cardiology Monitor closely on cardiac stepdown today Final Diagnosis Acute CHF Exacerbation Unstable angina Clinical Quality Measures AMI/AHF: ASA po Prior to arrival: Yes (324) TARSHA MARQUIS DO 12/17/202043: Subjective Subjective/Events-last exam Pt doing a lot better today Home meds were redone after multiple changes were made by the pharmacy Still having chest pain but he is managing it No other issues Blood sugar glucose levels are improved Less SOB Will initiate PT and OT and rehab evaluation Review of Systems General: Fatigue Pulmonary: Dyspnea Objective Exam General: Alert, Oriented X3, Cooperative, No Acute Distress Lungs: Clear to Auscultation Heart: Regular Rate Neuro: Normal Speech Psych/Mental Status: Mental Status NL Assessment/Plan Assessment/Plan Assess & Plan/Chief Complaint Monitor closely Appreciate Dr Hanson No pain reported Supervisory-Addendum Brief Verification & Attestation Participated in pt care: history, MDM, physical Personally performed: exam, history, MDM, supervision of care Care discussed with: Medical Student Procedures: n/a Results interpretation: Verified all documentation Verification and Attestation of Medical Student E/M Service A medical student performed and documented this service in my presence. I reviewed and verified all information documented by the medical student and made modifications to such information, when appropriate. I personally performed the physical exam and medical decision making. Tarsha Marquis, Dec 17, 2020,20:42 YENNIFER MASON MED STUDENT Dec 17, 2020 10:26 TARSHA MARQUIS DO Dec 17, 2020 20:44
[2020-12-17 10:33] LABS: ALBUMIN 3.7 GM/DL (3.2-4.5); BILIRUBIN,TOTAL 0.3 MG/DL (0.1-1.0); CREATININE SERUM 1.63 MG/DL (0.60-1.30); POTASSIUM 4.5 MMOL/L (3.6-5.0)
--- NOTE | 2020-12-17 10:38 | Cardiology Progress Note ---
Subjective Date Seen by Provider: Dec 17, 2020 Time Seen by Provider: 10:37 Subjective/Events-last exam Patient is laying down in bed, feeling better, still having mild chest pain. Slightly worse dyspnea Review of Systems General: No Chills, No Night Sweats, No Fatigue; Malaise; No Appetite, No Other HEENT: No Head Aches, No Visual Changes, No Eye Pain, No Ear Pain, No Dysphasia, No Sinus Congestion, No Post Nasal Drip, No Sore Throat, No Other Pulmonary: Dyspnea; No Cough, No Pleuritic Chest Pain, No Other Cardiovascular: Chest Pain; No: Palpitations, Orthopnea, Paroxysmal Noc. Dyspnea, Edema, Lt Headedness, Other Objective-Cardiology Exam Last Set of Vital Signs Vital Signs 12/16/20 12/17/20 12/17/20 12/17/20 00:57 02:21 07:47 09:26 Temp 36.1 Pulse 77 Resp 20 B/P (MAP) 121/78 (92) Pulse Ox 87 O2 Delivery Room Air O2 Flow Rate 3.00 FiO2 100 Capillary Refill : Greater Than 3 Seconds I&O Intake and Output 12/17/20 00:00 Intake Total 850 ml Output Total 1175 ml Balance -325 ml Intake Oral 850 ml Output Urine Total 1175 ml Daily Weight Change No General: Alert, Oriented X3, Cooperative HEENT: Atraumatic, PERRLA Neck: Supple, No JVD, No Thyromegaly Lungs: Clear to Auscultation, Normal Air Movement Heart: Normal S1, Normal S2, Other (S3 present, systolic murmur) Abdomen: Normal Bowel Sounds, Soft, No Tenderness, No Hepatosplenomegaly, No Masses Extremities: No Clubbing, No Cyanosis, Normal Pulses, No Tenderness/Swelling Skin: No Rashes, No Breakdown, No Significant Lesion, Other (Mild edema) Neuro: Normal Gait, Normal Speech, Strength at 5/5 X4 Ext, Normal Tone, Sensation Intact Psych/Mental Status: Mental Status NL, Mood NL Results Lab Laboratory Tests 12/17/20 10:05 A/P-Cardiology Assessment/Plan Chest pain, non-ST elevation myocardial infarction, extensive coronary artery disease deemed inoperable. Conservative management is recommended. Coronary artery disease, last cardiac catheterization was done in September 2019 showing severe distal LAD stenosis where the vessel is very small, has patent stent in the mid LAD, total occlusion of the right coronary artery with mild disease in the circumflex artery. Deemed inoperable. Patient is awaiting on cardiac transplant list. Congestive heart failure, chronic compensated left ventricular systolic dysfunction, ischemic cardiomyopathy, milrinone drip was on hold since yesterday, I will restart the drip today. Monitor tolerance and response Status post ICD implantation done recently at . Site is healing well. Acute on chronic renal insufficiency. Continue to monitor renal function Labile hypertension, continue to monitor blood pressure Hyperlipidemia, continue to monitor Diabetes mellitus, followed and managed by primary care physician Extensive peripheral arterial disease, multiple intervention done in the past by Dr. Layton History of myasthenia gravis treated at [facility] with plasmapheresis and prednisone and Pyridostigmine History of peptic ulcer disease. Had endoscopy in 2014 Anxiety. Carotid stenosis, mild to moderate disease, last ultrasound was done in October 2016. Clinical Quality Measures AMI/AHF: ASA po Prior to arrival: Yes (324) RAMIRO GILL MD Dec 17, 2020 10:38
[2020-12-17 10:54] LABS: BAND NEUTROPHILS 0 %; BASOPHILS % (MANUAL) 1 %; EOSINOPHILS % (MANUAL) 3 %; LYMPHOCYTES % (MANUAL) 5 %; MONOCYTES % (MANUAL) 9 %; NEUTROPHILS % (MANUAL) 82 %
[2020-12-17 10:55] LABS: ANISOCYTOSIS SLIGHT
[2020-12-17] MEDS: ASPIRIN E.C. 81 MG (ECOTRIN) TAB PO SCH (12:45)
[2020-12-17] MEDS: PANTOPRAZOLE 40 MG (PROTONIX) TAB PO SCH ×2 (12:45→21:16)
[2020-12-17] MEDS: ENOXAPARIN 100 MG/1 ML (LOVENOX) SYR SC SCH ×2 (12:45→21:16)
[2020-12-17] MEDS: LOSARTAN 25 MG (COZAAR) TAB PO SCH (12:46)
[2020-12-17] MEDS: [UNRECOGNIZED DRUG - REMARK] PO SCH ×2 (12:46→21:19)
[2020-12-17] MEDS: [UNRECOGNIZED DRUG - REMARK] PO SCH ×2 (12:49→21:17)
--- NOTE | 2020-12-17 13:50 | Physical Therapy Evaluation ---
PT Evaluation-General Medical Diagnosis Admission Date Dec 15, 2020 at 21:50 Medical Diagnosis: acute CHF/unstable angina Onset Date: Dec 15, 2020 Therapy Diagnosis Therapy Diagnosis: debility Height/Weight Height (Feet): 5 Height (Inches): 8.00 Weight (Pounds): 205 Weight (Ounces): 0.0 Precautions Precautions/Isolations: Fall Prevention, Standard Precautions Referral Physician: Davidson Reason for Referral: Evaluation/Treatment Medical History Pertinent Medical History: ASVD, CAD, DM, HTN, [place], PVD Additional Medical History Myasthenia gravis/polysubstance use/pacemaker Current History EMS secondary to CP Reviewed History: Yes Social History Home: Single Level Current Living Status: Spouse Entry Into Home: Stairs With Railing PT Steps Into Home: 2 Prior Prior Level of Function SCALE: Activities may be completed with or without assistive devices. 3-Kpqqodcgtf-iiwqauj completes the activity by him/herself with no assistance from a helper. 5-Set-up or Clean-up Assistance-helper sets up or cleans up; patient completes activity. [place] assists only prior to or following the activity. 4-Supervision or Touching Assistance-helper provides verbal cues and/or touching/steadying and/or contact guard assistance as patient completes activity. Assistance may be provided throughout the activity or intermittently. 3-Partial/Moderate Assistance-helper does LESS THAN HALF the effort. [place] lifts, holds or supports trunk or limbs, but provides less than half the effort. 2-Substantial/Maximal Assistance-helper does MORE THAN HALF the effort. [place] lifts or holds trunk or limbs and provides more than half the effort. 4-Tyyearmzj-bjuvkp does ALL the effort. Patient does none of the effort to complete the activity. Or, the assistance of 2 or more helpers is required for the patient to complete the activity. If activity was not attempted, code reason: 7-Patient Refused. 9-Not Applicable-not attempted and the patient did not perform the activity before the current illness, exacerbation or injury. 10-Not Attempted due to Environmental Limitations-(lack of equipment, weather restraints, etc.). 88-Not Attempted due to Medical Conditions or Safety Concerns. Bed Mobility: 6 Transfers (B,C,W/C): 6 Gait: 6 Stairs: 6 Wheelchair Mobility: 9 Indoor Mobility (Ambulation): Independent Stairs: Independent Prior Devices Use: None PT Evaluation-Current Subjective Patient just complete with OT. Agrees to PT. Objective Patient Orientation: Normal For Age continuous pump infusion ROM/Strength ROM Lower Extremities bilateral LE WFL Strength Lower Extremities 4+/5 grossly bilateral LE Integumentary/Posture Integumentary refer to nursing notes Bowel Incontinence: No Bladder Incontinence: No Posture scoliosis Neuromuscular (Tone, Coordination, Reflexes) grossly intact Sensory Vision: Functional Hearing: Functional Transfers Roll Left to Right (QC): 6 Sit to Lying (QC): 6 Lying to Sitting/Side of Bed(Q: 6 Sit to Stand (QC): 6 Chair/Zmk-ja-Zmpwy Xfer(QC): 6 Toilet Transfer (QC): 6 Car Transfer (QC): 6 Gait Does the Patient Walk?: Yes Mode of Locomotion: Walk Anticipated Mode of Locomotion: Walk Walk 10 feet (QC): 6 Walk 50 ft with 2 Turns(QC): 6 Walk 150 ft (QC): 6 Walking 10ft/uneven surface-QC: 6 Distance: 300' x 2 Gait Assistive Device: None Comments/Gait Description safe and functional with no deviation Wheelchair Training Does the Pt Use a Wheelchair?: No Wheel 50 ft with 2 turns (QC): 9 Wheel 150 ft (QC): 9 Type of Wheelchair: N/A Stairs #of Steps: 12 1 Step (curb) (QC): 6 4 Steps (QC): 6 12 Steps (QC): 6 reciprocal pattern ascending and descending Balance Sitting Static: Normal Sitting Dynamic: Normal Standing Static: Normal Standing Dynamic: Normal Picking up an Object (QC): 6 Assessment/Needs 65 y.o. male, is currently at [facility] with all gross motor skills and does not require skilled therapy intervention. Patient is up ad zhang in room and has been instructed to ambulate PRN in hallway with mask in place. Rehab Potential: Fair PT Plan Treatment/Plan Treatment Plan: Discontinue PT, goals met Treatment Duration: Dec 17, 2020 Frequency: 1 time per week Estimated Hrs Per Day: .25 hour per day Patient and/or Family Agrees t: Yes Discharge Recommendations Therapy Discharge Recommendati: Home & Family Time/GCodes Time In: 1320 Time Out: 1330 Total Billed Treatment Time: 10 Total Billed Treatment 1 visit EVModC 10 min INDRA ZENG PT Dec 17, 2020 13:50
--- NOTE | 2020-12-17 15:42 | Occupational Therapy Eval ---
OT Evaluation-General/PLF Medical Diagnosis Admission Date Dec 15, 2020 at 21:50 Medical Diagnosis: acute CHF/unstable angina Onset Date: Dec 15, 2020 Therapy Diagnosis Therapy Diagnosis: Decreased ADL status Height/Weight Height (Feet): 5 Height (Inches): 8.00 Weight (Pounds): 205 Weight (Ounces): 0.0 Precautions Precautions/Isolations: Fall Prevention, Standard Precautions Referral Physician: Davidson Referral Reason: Activity Tolerance, Self Care, Evaluation/Treatment, Strengthening/ROM Medical History Pertinent Medical History: ASVD, CAD, DM, HTN, [place], PVD Additional Medical History MG, CAD, DMII, cardiomopathy, heart failure, obesity, CHD, HLD, HTN, lupus, PAD, meth use. Current History Admits to ER via EMS with c/o chest pain 12/15. Pt d/c'd from last Thursday post Myasthenia Gravis exacerbation + post heart transplant workup. New cardiac pacemaker at Thursday. Reviewed History: Yes Social History Home: Single Level Current Living Status: Spouse Entry Into Home: Stairs With Railing Steps Into Home: 2 ADL-Prior Level of Function SCALE: Activities may be completed with or without assistive devices. 1-Svbfpcfysv-xkacckc completes the activity by him/herself with no assistance from a helper. 5-Set-up or Clean-up Assistance-helper sets up or cleans up; patient completes activity. [place] assists only prior to or following the activity. 4-Supervision or Touching Assistance-helper provides verbal cues and/or touching/steadying and/or contact guard assistance as patient completes activity. Assistance may be provided throughout the activity or intermittently. 3-Partial/Moderate Assistance-helper does LESS THAN HALF the effort. [place] lifts, holds or supports trunk or limbs, but provides less than half the effort. 2-Substantial/Maximal Assistance-helper does MORE THAN HALF the effort. [place] lifts or holds trunk or limbs and provides more than half the effort. 7-Zeycxihkq-dszxpe does ALL the effort. Patient does none of the effort to complete the activity. Or, the assistance of 2 or more helpers is required for the patient to complete the activity. If activity was not attempted, code reason: 7-Patient Refused. 9-Not Applicable-not attempted and the patient did not perform the activity before the current illness, exacerbation or injury. 10-Not Attempted due to Environmental Limitations-(lack of equipment, weather restraints, etc.). 88-Not Attempted due to Medical Conditions or Safety Concerns. ADL PLOF Comments IND with I/ADLs, drives, use of cane in community though IND at home Self Care: Independent Functional Cognition: Independent DME/Equipment: Bath Bench, Shower DME/Equipment Comments Expresses SPC, walk in shower, no gbs, though has a sc which he states he doesn't utilize most days. Occupation: retired/ disabled. Drive Self: Yes OT Current Status Subjective Pt AxO, agrees to tx. Pt denies pain, states hx. Mental Status/Objective Patient Orientation: Person, Place, Situation, Normal For Age Attachments: Other-See Comments (infusion ) Current Hearing Aids: No Dentures/Partials: No Hand Dominance: Right Upper Extremity ROM WFL RUE L DNT per pacemaker precautions (distal WFL) Upper Extremity Coordination WFL BUE Upper Extremity Sensation WFL BUE Pt states neuropathy BLE Upper Extremity Strength WFL RUE L DNT per pacemaker precautions (distal WFL) Edema: none noted. ADL-Treatment Eating (QC): 6 Oral Hygiene (QC): 6 Shower/Bathe Self (QC): 6 (states completed on own this am. ) On/Off Footwear (QC): 6 (IND with slip on shoes.) Toileting Hygiene (QC): 6 (expresses no difficulty with this task.) Other Treatments Pt provides hx, completes MMT/ ROM on R side (pacemaker placement LUE). Pt completes shoe donning IND, provides other ADL hx (showered self today), states decreased ability to don pants at times due to low endurance/ strength due to MG, however, when educated on AE for LB dressing pt states he does not want to become reliant on AE (as he states sister has a psych tech and never gets up due to ability to gather with psych tech) and denies further education. Pt sit to stands with SBA and ambulates through room SBA-SUP. Good balance, good abilities. Pt agrees at PLOF and, due to denial of further education, pt does not require skilled OT intervention at this time. Left with PT in recliner end of session. D/c. Education OT Patient Education: Correct positioning, Modified ADL techniques, Progress toward Goal/Update tx plan, Purpose of tx/functional activities, Use of adapted equipment Teaching Recipient: Patient Teaching Methods: Demonstration, Discussion Response to Teaching: Verbalize Understanding, Return Demonstration OT Business Writer Goals Business Writer Goals 1=Demonstrate adherence to instructed precautions during ADL tasks. 2=Patient will verbalize/demonstrate understanding of assistive devices/modifications for ADL. 3=Patient will improve strength/tolerance for activity to enable patient to perform ADL's. OT Education/Plan Problem List/Assessment Assessment: No Skilled OT Needs ID'd Discharge Recommendations Plan/Recommendations: Discharge/Goals Met Therapy Discharge Recommendati: Home & Family Treatment Plan/Plan of Care Treatment,Training & Education: Yes Patient would benefit from OT for education, treatment and training to promote independence in ADL's, mobility, safety and/or upper extremity function for ADL's. Plan of Care: OTHER (eval and d/c) Treatment Duration: Dec 17, 2020 Frequency: 1 time per week (eval only) Rehab Potential: Fair Time/GCodes Start Time: 13:07 Stop Time: 13:21 Total Time Billed (hr/min): 14 Billed Treatment Time 1, EVM D/c. CHET ARREAGA OTR Dec 17, 2020 15:42
[2020-12-17] MEDS ORDERED: GABAPENTIN 600 MG (NEURONTIN) TAB PO SCH (21:00)
[2020-12-17] MEDS ORDERED: OMEGA 3 (FISH OIL) 1000 MG CAP PO SCH (21:00)
[2020-12-17] MEDS ORDERED: ISOSORBIDE MONONITRATE 30 MG (IMDUR) TAB PO SCH (21:00)
[2020-12-17] MEDS: SPIRONOLACTONE 25 MG (ALDACTONE) TAB PO SCH (21:15)
[2020-12-17] MEDS: [UNRECOGNIZED DRUG - REMARK] PO SCH (21:18)
[2020-12-18] MEDS: morphine INJ 4 MG/ML 1 ML (VIAL/SYRINGE) IV PRN ×2 (02:22→05:09)
--- NOTE | 2020-12-18 05:26 | Progress Note ---
Subjective Date Seen by a Provider: Dec 18, 2020 Objective Exam Last Set of Vital Signs Vital Signs Date Time Temp Pulse Resp B/P (MAP) Pulse Ox O2 Delivery O2 Flow Rate FiO2 12/18/20 03:43 36.8 72 14 124/72 (89) 97 Room Air 12/17/20 18:44 90 12/17/20 02:21 3.00 Capillary Refill : Greater Than 3 Seconds I&O Intake and Output 12/18/20 00:00 Intake Total 1215 ml Output Total 1550 ml Balance -335 ml Intake Oral 1215 ml Output Urine Total 1550 ml Results Lab Laboratory Tests 12/17/20 06:48: Glucometer 161H 12/17/20 10:05: White Blood Count 10.6, Red Blood Count 5.01, Hemoglobin 11.8L, Hematocrit 41, Mean Corpuscular Volume 81, Mean Corpuscular Hemoglobin 24L, Mean Corpuscular Hemoglobin Concent 29L, Red Cell Distribution Width 18.5H, Platelet Count 257, Mean Platelet Volume 10.1, Immature Granulocyte % (Auto) 1, Neutrophils (%) (A uto) 88H, Lymphocytes (%) (Auto) 5L, Monocytes (%) (Auto) 5, Eosinophils (%) (Auto) 1, Basophils (%) (Auto) 0, Neutrophils # (Auto) 9.3H, Lymphocytes # (Auto) 0.6L, Monocytes # (Auto) 0.5, Eosinophils # (Auto) 0.2, Basophils # (Auto) 0.0, Immature Granulocyte # (Auto) 0.1, Neutrophils % (Manual) 82, Lymphocytes % (Manual) 5, Monocytes % (Manual) 9, Eosinophils % (Manual) 3, Basophils % (Manual) 1, Band Neutrophils 0, Anisocytosis SLIGHT, Sodium Level 134L, Potassium Level 4.5, Chloride Level 102, Carbon Dioxide Level 23, Anion Gap 9, Blood Urea Nitrogen 43H, Creatinine 1.63H, Estimat Glomerular Filtration Rate 43, BUN/Creatinine Ratio 26, Glucose Level 222H, Calcium Level 9.0, Corrected Calcium 9.2, Total Bilirubin 0.3, Aspartate Amino Transf (AST/SGOT) 23, Alanine Aminotransferase (ALT/SGPT) 24, Alkaline Phosphatase 27L, Total Protein 7.0, Albumin 3.7 12/17/20 10:15: Glucometer 220H 12/17/20 15:38: Glucometer 160H 12/17/20 19:42: Glucometer 133H 12/18/20 05:02: Glucometer 191H Microbiology 12/15/20 MRSA Screen - Final, Complete MRSA not isolated Assessment/Plan Assessment/Plan Assess & Plan/Chief Complaint Monitor closely Appreciate Dr Hanson No pain reported Clinical Quality Measures AMI/AHF: ASA po Prior to arrival: Yes (324) EVERARDO MARQUIS DO Dec 18, 2020 05:26
[2020-12-18] MEDS: inSUlin ASPART (NovoLOG) 1 UNIT/0.01 ML (CHARGE PER UNIT) SC SCH ×2 (08:10→11:08)
[2020-12-18] MEDS: predniSONE 10 MG TAB PO SCH (08:10)
[2020-12-18] MEDS: inSUlin ASPART (NovoLOG) 1 UNIT/0.01 ML (CHARGE PER UNIT) SQ SCH ×2 (08:10→12:21)
[2020-12-18] MEDS: [UNRECOGNIZED DRUG - REMARK] PO SCH (08:13)
[2020-12-18] MEDS: [UNRECOGNIZED DRUG - REMARK] PO SCH (08:14)
[2020-12-18] MEDS: [UNRECOGNIZED DRUG - REMARK] PO SCH (08:15)
[2020-12-18] MEDS ORDERED: predniSONE 5 MG TAB PO SCH (09:00)
[2020-12-18] MEDS ORDERED: ASPIRIN 81 MG CHEW (CHILDREN'S ASA) PO SCH (09:00)
[2020-12-18] MEDS ORDERED: meTOproloL SUCCINATE 50 MG (TOPROL XL) TAB PO SCH (09:00)
[2020-12-18] MEDS ORDERED: [UNRECOGNIZED DRUG - REMARK] PO SCH (09:00)
[2020-12-18] MEDS ORDERED: FEBUXOSTAT 40 MG PO SCH (09:00)
[2020-12-18] MEDS ORDERED: DULoxetine 30 MG (CYMBALTA) CAP PO SCH (09:00)
[2020-12-18] MEDS ORDERED: GBPN600T PO (09:17)
--- NOTE | 2020-12-18 09:18 | Discharge Summary ---
Diagnosis/Chief Complaint Date of Admission Dec 15, 2020 at 21:50 Date of Discharge Discharge Date: Dec 18, 2020 Discharge Diagnosis Assessment: CP with NSTEMI in CAD patient who is inoperable on heart transplant list at [facility] Congestive heart failure, milrinone drip restarted s/p ICD at last week Myasthenia gravis CRI HTN HLP DM PVD Discharge Summary Discharge Physical Examination Allergies: Coded Allergies: albumin colloid, human (Verified Allergy, Unknown, 12/15/20) carvedilol (Unverified Allergy, Unknown, 01/22/10) codeine (Unverified Allergy, Unknown, PATIENT HAS RECEIVED MORPHINE WITHOUT ISSUE, 06/08/15) trazodone (Verified Allergy, Unknown, 12/15/20) Vitals & I&Os Vital Signs Date Time Temp Pulse Resp B/P (MAP) Pulse Ox O2 Delivery O2 Flow Rate FiO2 12/18/20 13:23 12/18/20 11:00 96 Room Air 12/18/20 08:00 36.7 79 16 12/17/20 18:44 90 12/17/20 02:21 3.00 General Appearance: Alert, Oriented X3, Cooperative Respiratory: Clear to Auscultation Cardiovascular: Regular Rate Neuro: Normal Gait Psych/Mental Status: Mental Status NL Hospital Course Was the Problem List Reviewed?: Yes Hospital Course: Pt had an uneventful hospital course when he was admitted for SOB and volume overload. He was admitted to the ICU, cardiology was consulted, pt was diuresed and multiple medications were modified by cardiology considering he is on the heart transplant list, had entire work up at done the previous two weeks. Overall he did very well, he was able to ambulate, get back to his independent ADLs and no medication changes were made by Dr. Hanson and he will have close follow up for his heart transplant. Labs (last 24 hrs) Laboratory Tests 12/15/20 20:15: White Blood Count 12.0H, Red Blood Count 5.44, Hemoglobin 13.0L, Hematocrit 43, Mean Corpuscular Volume 79L, Mean Corpuscular Hemoglobin 24L, Mean Corpuscular Hemoglobin Concent 30L, Red Cell Distribution Width 18.6H, Platelet Count 338, Mean Platelet Volume 10.2, Immature Granulocyte % (Auto) 1, Neutrophils (%) (Auto) 82H, Lymphocytes (%) (Auto) 11L, Monocytes (%) (Auto) 6, Eosinophils (%) (Auto) 1, Basophils (%) (Auto) 0, Neutrophils # (Auto) 9.8H, Lymphocytes # (Auto) 1.3, Monocytes # (Auto) 0.7, Eosinophils # (Auto) 0.1, Basophils # (Auto) 0.0, Immature Granulocyte # (Auto) 0.1, Prothrombin Time 13.1, INR Comment 1.0, Activated Partial Thromboplast Time 34, Sodium Level 134L, Potassium Level 4.6, Chloride Level 99, Carbon Dioxide Level 22, Anion Gap 13, Blood Urea Nitrogen 46 H, Creatinine 1.82H, Estimat Glomerular Filtration Rate 38, BUN/Creatinine Ratio 25, Glucose Level 246H, Calcium Level 9.6, Corrected Calcium 9.6, Magnesium Level 1.7, Total Bilirubin 0.4, Aspartate Amino Transf (AST/SGOT) 28, Alanine Aminotransferase (ALT/SGPT) 29, Alkaline Phosphatase 63, Myoglobin 42.0, Troponin I 0.055H, B-Type Natriuretic Peptide 902.8H, Total Protein 8.1, Albumin 4.0 12/15/20 21:42: Urine Color YELLOW, Urine Clarity CLEAR, Urine pH 5.5, Urine Specific Dexter 1.020, Urine Protein NEGATIVE, Urine Glucose (UA) 3+H, Urine Ketones NEGATIVE, Urine Nitrite NEGATIVE, Urine Bilirubin NEGATIVE, Urine Urobilinogen 0.2, Urine Leukocyte Esterase NEGATIVE, Urine RBC (Auto) NEGATIVE, Urine RBC NONE, Urine WBC NONE, Urine Squamous Epithelial Cells RARE, Urine Crystals NONE, Urine Bacteria NEGATIVE, Urine Casts NONE, Urine Mucus NEGATIVE, Urine Culture Indicated NO, Urine Opiates Screen POSITIVEH, Urine Oxycodone Screen NEGATIVE, Urine Methadone Screen NEGATIVE, Urine Propoxyphene Screen NEGATIVE, Urine Barbiturates Screen NEGATIVE, Ur Tricyclic Antidepressants Screen NEGATIVE, Urine Phencyclidine Screen NEGATIVE, Urine Amphetamines Screen NEGATIVE, Urine Methamphetamines Screen NEGATIVE, Urine Benzodiazepines Screen POSITIVEH, Urine Cocaine Screen NEGATIVE, Urine Cannabinoids Screen NEGATIVE 12/16/20 00:27: Glucometer 129H 12/16/20 03:10: White Blood Count 11.8H, Red Blood Count 5.33, Hemoglobin 12.6L, Hematocrit 43, Mean Corpuscular Volume 80, Mean Corpuscular Hemoglobin 24L, Mean Corpuscular Hemoglobin Concent 30L, Red Cell Distribution Width 18.5H, Platelet Count 305, Mean Platelet Volume 10.3, Immature Granulocyte % (Auto) 1, Neutrophils (%) (Auto) 76H, Lymphocytes (%) (Auto) 14, Monocytes (%) (Auto) 7, Eosinophils (%) (Auto) 2, Basophils (%) (Auto) 0, Neutrophils # (Auto) 9.0H, Lymphocytes # (Auto) 1.7, Monocytes # (Auto) 0.8, Eosinophils # (Auto) 0.2, Basophils # (Auto) 0.0, Immature Granulocyte # (Auto) 0.1, Sodium Level 135, Potassium Level 4.4, Chloride Level 100, Carbon Dioxide Level 20L, Anion Gap 15H, Blood Urea Nitrogen 49H, Creatinine 1.86H, Estimat Glomerular Filtration Rate 37, BUN/Creatinine Ratio 26, Glucose Level 145H, Calcium Level 9.4, Corrected Calcium 9.5, Total Bilirubin 0.3, Aspartate Amino Transf (AST/SGOT) 27, Alanine Aminotransferase (ALT/SGPT) 30, Alkaline Phosphatase 45, Troponin I 0.089H, Total Protein 7.5, Albumin 3.9, Triglycerides Level 242H, Cholesterol Level 146, LDL Cholesterol Direct 85, VLDL Cholesterol 48H, HDL Cholesterol 38L 12/16/20 09:20: Troponin I 0.073H 12/16/20 10:27: Glucometer 132H 12/16/20 15:41: Glucometer 130H 12/16/20 20:33: Glucometer 84 12/17/20 06:48: Glucometer 161H 12/17/20 10:05: White Blood Count 10.6, Red Blood Count 5.01, Hemoglobin 11.8L, Hematocrit 41, Mean Corpuscular Volume 81, Mean Corpuscular Hemoglobin 24L, Mean Corpuscular Hemoglobin Concent 29L, Red Cell Distribution Width 18.5H, Platelet Count 257, Mean Platelet Volume 10.1, Immature Granulocyte % (Auto) 1, Neutrophils (%) (Auto) 88H, Lymphocytes (%) (Auto) 5L, Monocytes (%) (Auto) 5, Eosinophils (%) (Auto) 1, Basophils (%) (Auto) 0, Neutrophils # (Auto) 9.3H, Lymphocytes # (Auto) 0.6L, Monocytes # (Auto) 0.5, Eosinophils # (Auto) 0.2, Basophils # (Auto) 0.0, Immature Granulocyte # (Auto) 0.1, Neutrophils % (Manual) 82, Lymphocytes % (Manual) 5, Monocytes % (Manual) 9, Eosinophils % (Manual) 3, Basophils % (Manual) 1, Band Neutrophils 0, Anisocytosis SLIGHT, Sodium Level 134L, Potassium Level 4.5, Chloride Level 102, Carbon Dioxide Level 23, Anion Gap 9, Blood Urea Nitrogen 43H, Creatinine 1.63H, Estimat Glomerular Filtration Rate 43, BUN/Creatinine Ratio 26, Glucose Level 222H, Calcium Level 9.0, Monique ected Calcium 9.2, Total Bilirubin 0.3, Aspartate Amino Transf (AST/SGOT) 23, Alanine Aminotransferase (ALT/SGPT) 24, Alkaline Phosphatase 27L, Total Protein 7.0, Albumin 3.7 12/17/20 10:15: Glucometer 220H 12/17/20 15:38: Glucometer 160H 12/17/20 19:42: Glucometer 133H 12/18/20 05:02: Glucometer 191H 12/18/20 10:57: Glucometer 141H Microbiology 12/15/20 MRSA Screen - Final, Complete MRSA not isolated Pending Labs Microbiology Date/Time Source Procedure Growth Status 12/15/20 23:50 Nasal MRSA Screen - Final MRSA not isolated Complete Laboratory Tests 12/15/20 20:15: White Blood Count 12.0, Red Blood Count 5.44, Hemoglobin 13.0, Hematocrit 43, Mean Corpuscular Volume 79, Mean Corpuscular Hemoglobin 24, Mean Corpuscular Hemoglobin Concent 30, Red Cell Distribution Width 18.6, Platelet Count 338, Mean Platelet Volume 10.2, Immature Granulocyte % (Auto) 1, Neutrophils (%) (Au to) 82, Lymphocytes (%) (Auto) 11, Monocytes (%) (Auto) 6, Eosinophils (%) (Auto) 1, Basophils (%) (Auto) 0, Neutrophils # (Auto) 9.8, Lymphocytes # (Auto) 1.3, Monocytes # (Auto) 0.7, Eosinophils # (Auto) 0.1, Basophils # (Auto) 0.0, Immature Granulocyte # (Auto) 0.1, Prothrombin Time 13.1, INR Comment 1.0, Activated Partial Thromboplast Time 34, Sodium Level 134, Potassium Level 4.6, Chloride Level 99, Carbon Dioxide Level 22, Anion Gap 13, Blood Urea Nitrogen 46, Creatinine 1.82, Estimat Glomerular Filtration Rate 38, BUN/Creatinine Ratio 25, Glucose Level 246, Calcium Level 9.6, Corrected Calcium 9.6, Magnesium Level 1.7, Total Bilirubin 0.4, Aspartate Amino Transf (AST/SGOT) 28, Alanine Aminotransferase (ALT/SGPT) 29, Alkaline Phosphatase 63, Myoglobin 42.0, Troponin I 0.055, B-Type Natriuretic Peptide 902.8, Total Protein 8.1, Albumin 4.0 12/15/20 21:42: Urine Color YELLOW, Urine Clarity CLEAR, Urine pH 5.5, Urine Specific Dexter 1.020, Urine Protein NEGATIVE, Urine Glucose (UA) 3+, Urine Ketones NEGATIVE, Urine Nitrite NEGATIVE, Urine Bilirubin NEGATIVE, Urine Urobilinogen 0.2, Urine Leukocyte Esterase NEGATIVE, Urine RBC (Auto) NEGATIVE, Urine RBC NONE, Urine WBC NONE, Urine Squamous Epithelial Cells RARE, Urine Crystals NONE, Urine Bacteria NEGATIVE, Urine Casts NONE, Urine Mucus NEGATIVE, Urine Culture Indicated NO, Urine Opiates Screen POSITIVE, Urine Oxycodone Screen NEGATIVE, Urine Methadone Screen NEGATIVE, Urine Propoxyphene Screen NEGATIVE, Urine Barbiturates Screen NEGATIVE, Ur Tricyclic Antidepressants Screen NEGATIVE, Urine Phencyclidine Screen NEGATIVE, Urine Amphetamines Screen NEGATIVE, Urine Methamphetamines Screen NEGATIVE, Urine Benzodiazepines Screen POSITIVE, Urine Cocaine Screen NEGATIVE, Urine Cannabinoids Screen NEGATIVE 12/16/20 00:27: Glucometer 129 12/16/20 03:10: White Blood Count 11.8, Red Blood Count 5.33, Hemoglobin 12.6, Hematocrit 43, Mean Corpuscular Volume 80, Mean Corpuscular Hemoglobin 24, Mean Corpuscular He moglobin Concent 30, Red Cell Distribution Width 18.5, Platelet Count 305, Mean Platelet Volume 10.3, Immature Granulocyte % (Auto) 1, Neutrophils (%) (Auto) 76, Lymphocytes (%) (Auto) 14, Monocytes (%) (Auto) 7, Eosinophils (%) (Auto) 2, Basophils (%) (Auto) 0, Neutrophils # (Auto) 9.0, Lymphocytes # (Auto) 1.7, Monocytes # (Auto) 0.8, Eosinophils # (Auto) 0.2, Basophils # (Auto) 0.0, Immature Granulocyte # (Auto) 0.1, Sodium Level 135, Potassium Level 4.4, Chloride Level 100, Carbon Dioxide Level 20, Anion Gap 15, Blood Urea Nitrogen 49, Creatinine 1.86, Estimat Glomerular Filtration Rate 37, BUN/Creatinine Ratio 26, Glucose Level 145, Calcium Level 9.4, Corrected Calcium 9.5, Total Bilirubin 0.3, Aspartate Amino Transf (AST/SGOT) 27, Alanine Aminotransferase (ALT/SGPT) 30, Alkaline Phosphatase 45, Troponin I 0.089, Total Protein 7.5, Albumin 3.9, Triglycerides Level 242, Cholesterol Level 146, LDL Cholesterol Direct 85, VLDL Cholesterol 48, HDL Cholesterol 38 12/16/20 09:20: Troponin I 0.073 12/16/20 10:27: Glucometer 132 12/16/20 15:41: Glucometer 130 12/16/20 20:33: Glucometer 84 12/17/20 06:48: Glucometer 161 12/17/20 10:05: White Blood Count 10.6, Red Blood Count 5.01, Hemoglobin 11.8, Hematocrit 41, Mean Corpuscular Volume 81, Mean Corpuscular Hemoglobin 24, Mean Corpuscular Hemoglobin Concent 29, Red Cell Distribution Width 18.5, Platelet Count 257, Mean Platelet Volume 10.1, Immature Granulocyte % (Auto) 1, Neutrophils (%) (Auto) 88, Lymphocytes (%) (Auto) 5, Monocytes (%) (Auto) 5, Eosinophils (%) (Auto) 1, Basophils (%) (Auto) 0, Neutrophils # (Auto) 9.3, Lymphocytes # (Auto) 0.6, Monocytes # (Auto) 0.5, Eosinophils # (Auto) 0.2, Basophils # (Auto) 0.0, Immature Granulocyte # (Auto) 0.1, Neutrophils % (Manual) 82, Lymphocytes % (Manual) 5, Monocytes % (Manual) 9, Eosinophils % (Manual) 3, Basophils % (Manual) 1, Band Neutrophils 0, Anisocytosis SLIGHT, Sodium Level 134, Potassium Level 4.5, Chloride Level 102, Carbon Dioxide Level 23, Anion Gap 9, Blood Urea Nitrogen 43, Creatinine 1.63, Estimat Glomerular Filtration Rate 43, BUN/Creatinine Ratio 26, Glucose Level 222, Calcium Level 9.0, Corrected Calcium 9.2, Total Bilirubin 0.3, Aspartate Amino Transf (AST/SGOT) 23, Alanine Aminotransferase (ALT/SGPT) 24, Alkaline Phosphatase 27, Total Protein 7.0, Albumin 3.7 12/17/20 10:15: Glucometer 220 12/17/20 15:38: Glucometer 160 12/17/20 19:42: Glucometer 133 12/18/20 05:02: Glucometer 191 12/18/20 10:57: Glucometer 141 Discharge Home Medications: Active Scripts Active Gabapentin 600 Mg Tablet 600 Mg PO HS Reported Gamunex-C (Immune Glob,Adriano Caprylate(IgG)) 40 Gm/400 Ml Vial 50 Gm IJ EVERY 3 WEEKS 50 GM FOR 2 DAYS Soliris (Eculizumab) 300 Mg/30 Ml Vial 1,200 Mg IV EVERY 2 WEEKS INFUSE OVER 35 MINUTES Fish Oil 1,200 mg Softgel ([place]-3 Fatty Acids/Fish Oil) 1 Each Capsule 1 Each PO HS Aspirin 81 Mg Tab.chew 81 Mg PO DAILY Vitamin D3 (Cholecalciferol (Vitamin D3)) 25 Mcg Capsule 25 Mcg PO DAILY Milrinone-D5w 40 mg/200 ml (Milrinone Lactate/D5w) 40 Mg/200 Ml Piggyback 40 Mg IV UD 12.1875 MCG PER MINUTE Prednisone 5 Mg Tablet 15 Mg PO DAILY TAKES 3 (5MG) TABS Isosorbide Mononitrate ER (Isosorbide Mononitrate) 30 Mg Tab.er.24h 30 Mg PO HS Atorvastatin Calcium 80 Mg Tablet 80 Mg PO HS Spironolactone 25 Mg Tablet 25 Mg PO BID Febuxostat 40 Mg Tablet 40 Mg PO DAILY Basaglar [place] U-100 (Insulin Glargine,Hum.rec.anlog) 100 Unit/1 Ml Insuln.pen 30 Units SC BID Losartan Potassium 25 Mg Tablet 50 Mg PO DAILY TAKES 2 (25MG) TABS Metoprolol Succinate 50 Mg Tab.er.24h 50 Mg PO DAILY Furosemide 40 Mg Tablet 40 Mg PO DAILY Penicillin V Potassium 500 Mg Tablet 500 Mg PO BID Duloxetine HCl 30 Mg Capsule.dr 30 Mg PO DAILY Cellcept (Mycophenolate Mofetil) 500 Mg Tablet 1,000 Mg PO BID Mestinon (Pyridostigmine [place]) 60 Mg Tab 60 Mg PO TID Celecoxib 100 Mg Capsule 100 Mg PO DAILY Pantoprazole Sodium 40 Mg Tablet.dr 40 Mg PO BID Novolog (Insulin Aspart) 100 Unit/1 Ml Susp 28 Unit SQ TIDAC Instructions to patient/family Please see electronic discharge instructions given to patient. Clinical Quality Measures AMI/AHF: ASA po Prior to arrival: Yes ([phone]) EVERARDO MARQUIS DO Dec 18, 2020 09:18
[2020-12-18] MEDS: PANTOPRAZOLE 40 MG (PROTONIX) TAB PO SCH (09:26)
[2020-12-18] MEDS: ASPIRIN E.C. 81 MG (ECOTRIN) TAB PO SCH (09:26)
[2020-12-18] MEDS: ENOXAPARIN 100 MG/1 ML (LOVENOX) SYR SC SCH (09:27)
[2020-12-18] MEDS: LOSARTAN 25 MG (COZAAR) TAB PO SCH (09:27)
[2020-12-18] MEDS: SPIRONOLACTONE 25 MG (ALDACTONE) TAB PO SCH (09:27)
--- NOTE | 2020-12-18 09:57 | Cardiology Progress Note ---
Subjective Date Seen by Provider: Dec 18, 2020 Time Seen by Provider: 09:56 Subjective/Events-last exam Patient was seen at bedside, feeling better today, less chest pain, breathing better. Review of Systems General: No Chills, No Night Sweats; Fatigue; No Malaise, No Appetite, No Other HEENT: No Head Aches, No Visual Changes, No Eye Pain, No Ear Pain, No Dysphasia, No Sinus Congestion, No Post Nasal Drip, No Sore Throat, No Other Pulmonary: Dyspnea; No Cough, No Pleuritic Chest Pain, No Other Cardiovascular: No: Chest Pain, Palpitations, Orthopnea, Paroxysmal Noc. Dyspnea, Edema, Lt Headedness, Other Objective-Cardiology Exam Last Set of Vital Signs Vital Signs 12/17/20 12/17/20 12/18/20 02:21 18:44 08:00 Temp 36.7 Pulse 79 Resp 16 B/P (MAP) 123/63 (83) Pulse Ox 94 O2 Delivery Room Air O2 Flow Rate 3.00 FiO2 90 Capillary Refill : Greater Than 3 Seconds I&O Intake and Output 12/18/20 00:00 Intake Total 1215 ml Output Total 1550 ml Balance -335 ml Intake Oral 1215 ml Output Urine Total 1550 ml General: Alert, Oriented X3, Cooperative, No Acute Distress HEENT: PERRLA Neck: Supple, No JVD Lungs: Clear to Auscultation Heart: Regular Rate, Normal S1, Normal S2 Abdomen: Normal Bowel Sounds, Soft, No Tenderness Extremities: No Clubbing, No Edema, Normal Pulses, No Tenderness/Swelling Skin: No Rashes Neuro: Normal Speech Psych/Mental Status: Mental Status NL Results Lab Laboratory Tests 12/17/20 10:05 A/P-Cardiology Admission Diagnosis Non-ST elevation myocardial infarction Congestive heart failure, acute on chronic left ventricular systolic dysfunction, ischemic cardiomyopathy Hypertension Hyperlipidemia Assessment/Plan Chest pain, non-ST elevation myocardial infarction, extensive coronary artery disease deemed inoperable. Conservative management is recommended. Coronary artery disease, last cardiac catheterization was done in September 2019 showing severe distal LAD stenosis where the vessel is very small, has patent stent in the mid LAD, total occlusion of the right coronary artery with mild disease in the circumflex artery. Deemed inoperable. Patient is awaiting on cardiac transplant list. Congestive heart failure, chronic compensated left ventricular systolic dysfunction, ischemic cardiomyopathy, milrinone drip was Restarted, continue to monitor. Status post ICD implantation done recently at . Site is healing well. Acute on chronic renal insufficiency. Continue to monitor renal function Labile hypertension, continue to monitor blood pressure Hyperlipidemia, continue to monitor Diabetes mellitus, followed and managed by primary care physician Extensive peripheral arterial disease, multiple intervention done in the past by Dr. Layton History of myasthenia gravis treated at [facility] with plasmapheresis and prednisone and Pyridostigmine History of peptic ulcer disease. Had endoscopy in 2014 Anxiety. Carotid stenosis, mild to moderate disease, last ultrasound was done in October 2016. Okay for discharge from cardiology standpoint Clinical Quality Measures AMI/AHF: ASA po Prior to arrival: Yes ([id number]) RAMIRO GILL MD Dec 18, 2020 09:57
--- NOTE | 2020-12-18 09:58 | D/C HH Face to Face Order ---
D/C Face to Face Orders Reconcile Patient Problems Problems Reviewed?: Yes Instructions for Patient Via [facility], Patient Instructions/FollowUp: [facility] 1 week Physician to follow Patient: [facility] Discharge Diet for Home: ADA Diet Patient Problems: CHF Patient Data-Allergies,Ht & Wt Patient Allergies: Coded Allergies: albumin colloid, human (Verified Allergy, Unknown, 12/15/20) carvedilol (Unverified Allergy, Unknown, 01/22/10) codeine (Unverified Allergy, Unknown, PATIENT HAS RECEIVED MORPHINE WITHOUT ISSUE, 06/08/15) trazodone (Verified Allergy, Unknown, 12/15/20) Height (Feet): 5 Height (Inches): 8.00 Weight (Pounds): 205 Weight (Ounces): 0.0 Home Health Need/Face to Face Date of Face to Face: Dec 18, 2020 Clinical Findings: Generalized weakness and fatigue, Immune-compromised, Muscle weakness I have seen Pt [id number]: Yes Discharged To: Home Diagnosis/Conditions: CHF Patient is Homebound due to: Muscle weakness Homebound Status Due to the above stated illness, injury or surgical procedure (medical cond ition or diagnosis) and associated clinical findings, the patient is homebound because of his/her inability to leave home except with aid of a supportive device and/or person AND leaving the home requires a considerable and taxing effort or is medically contraindicated. Pt req the following assistanc: [facility] Nursing Orders Home Health Services Order: Nursing Services, [facility]-Evaluate & Treat, Physical Therapy-Evaluate & Treat Certify Stmt I certify that this patient is under my care and that I, a nurse practitioner or a physician; a desk assistant working with me, had a face to face encounter that - meets the physician face to face encounter requirements with this patient as dated. EVERARDO MARQUIS DO Dec 18, 2020 09:58
== END 2020-12-18 13:23 | disposition home health service (06) | DRG 280 ==
LOC: EDUNIT# 20:10 → ER 20:11 → ICU 21:50 → CSD 12-16 16:49
PROVIDERS: ADMIT Internal Medicine; ATTEND Internal Medicine
DX: I13.0 Hypertensive heart and chronic kidney disease with heart failure and stage 1 through stage 4 chronic kidney disease, or unspecified chronic kidney disease (principal); I50.23 Acute on chronic systolic (congestive) heart failure; I21.4 Non-ST elevation (NSTEMI) myocardial infarction; N17.9 Acute kidney failure, unspecified; I47.2 Ventricular tachycardia; K22.10 Ulcer of esophagus without bleeding; N18.30 Chronic kidney disease, stage 3 unspecified; I25.110 Atherosclerotic heart disease of native coronary artery with unstable angina pectoris; I25.5 Ischemic cardiomyopathy; E66.9 Obesity, unspecified; Z68.31 Body mass index [BMI] 31.0-31.9, adult; E78.2 Mixed hyperlipidemia; E11.9 Type 2 diabetes mellitus without complications; G47.33 Obstructive sleep apnea (adult) (pediatric); E78.00 Pure hypercholesterolemia, unspecified; G70.00 Myasthenia gravis without (acute) exacerbation; I70.303 Unspecified atherosclerosis of unspecified type of bypass graft(s) of the extremities, bilateral legs; I44.1 Atrioventricular block, second degree; M10.9 Gout, unspecified; K21.9 Gastro-esophageal reflux disease without esophagitis; M19.91 Primary osteoarthritis, unspecified site; F41.9 Anxiety disorder, unspecified; Z95.810 Presence of automatic (implantable) cardiac defibrillator; Z95.5 Presence of coronary angioplasty implant and graft; Z87.01 Personal history of pneumonia (recurrent); Z86.73 Personal history of transient ischemic attack (TIA), and cerebral infarction without residual deficits; Z79.4 Long term (current) use of insulin; Z79.52 Long term (current) use of systemic steroids; Z88.6 Allergy status to analgesic agent; Z88.8 Allergy status to other drugs, medicaments and biological substances; Z82.61 Family history of arthritis; Z83.3 Family history of diabetes mellitus; Z82.49 Family history of ischemic heart disease and other diseases of the circulatory system; Z82.3 Family history of stroke
CPT/HCPCS: 36415; 71045; 80053; 80061; 80306; 81000; 82962; 83735; 83874; 83880; 84484; 85007; 85025; 85027; 85610; 85730; 87081; 93005; 93041; 93306; 94760

== ENCOUNTER 2021-01-02 15:46 | Observation (INO) | payer MEDICARE, MEDICAID ==
[~2021-01-02] VITALS: Ht 172 cm; Wt 93.0 kg
[~2021-01-02 15:46] MED LIST changes: +CHOL100048 PO; +DULO30CA49 PO; +ECUL300V IV; +FEBU40TA3 PO; +IMMU40VI IJ; +INSU100I34 SC; +ISOS30TA82 PO; +LOSA25TA41 PO; +OMEG-109 PO; +PENI500T PO; +PRED5TAB PO; +SPIR25TA5 PO; +[UNRECOGNIZED DRUG - CODE] IV
[2021-01-02 16:52] LABS: CALCIUM 9.6 MG/DL (8.5-10.1); CREATININE SERUM 2.27 MG/DL (0.60-1.30); POTASSIUM 6.3 MMOL/L (3.6-5.0)
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
[2021-01-02] MEDS ORDERED: HYDROmorphone (DILAUDID) 4 MG TAB PO ONE (17:00)
[2021-01-02] MEDS ORDERED: CALCIUM GLUC. 10% 4.65 MEQ/10 ML VIAL IV ONE (17:45)
[2021-01-02] MEDS ORDERED: SOD POLYSTERENE 15 GM/60 ML (KAYEXALATE) UNIT DOSE PO ONE (17:45)
[2021-01-02] MEDS ORDERED: DEXTROSE 50% 50 ML (IMS) SYR IV ONE (17:45)
[2021-01-02] MEDS ORDERED: inSUlin (REGULAR) HUMAN 1 UNIT/0.01 ML (CHARGE PER UNIT) IV ONE (17:45)
[2021-01-02 18:26] VITALS: BP 168/69
[2021-01-02] MEDS ORDERED: ANTACID SUSP 30 ML UDC (MYLANTA) PO PRN (19:15)
[2021-01-02] MEDS ORDERED: HYDROmorphone (DILAUDID) 4 MG TAB PO PRN (19:15)
[2021-01-02] MEDS ORDERED: LORazepam 0.5 MG (ATIVAN) TABLET PO PRN (19:15)
[2021-01-02] MEDS ORDERED: ONDANSETRON 4 MG (ZOFRAN) ORAL DISSOLVE TAB PO PRN (19:15)
[2021-01-02] MEDS ORDERED: MELATONIN 10 MG TABLET PO PRN (19:15)
[2021-01-02] MEDS ORDERED: ACETAMINOPHEN 325 MG TABLET PO PRN (19:15)
[2021-01-02] MEDS ORDERED: ONDANSETRON 4 MG/2 ML (SDV) Z0FRAN IV PRN (19:15)
[2021-01-02] MEDS ORDERED: ENOXAPARIN 40 MG/0.4 ML (LOVENOX) SYR SC SCH (19:30)
[2021-01-02 20:00] VITALS: BP 130/68
[2021-01-02 20:56] VITALS: BP 130/68
[2021-01-02] MEDS ORDERED: inSUlin ASPART (NovoLOG) 1 UNIT/0.01 ML (CHARGE PER UNIT) SC SCH (21:00)
[2021-01-02] MEDS ORDERED: RT-ALBUTEROL/IPRATROPIUM 3 ML (DUONEB) VIAL INH PRN (21:15)
[2021-01-02] MEDS: inSUlin ASPART (NovoLOG) 1 UNIT/0.01 ML (CHARGE PER UNIT) SC SCH (21:45)
[2021-01-02] MEDS: SACUBITRIL/VALSARTAN 24/26 MG (ENTRESTO) TABLET PO SCH (21:45)
[2021-01-03 00:30] VITALS: BP 117/63
[2021-01-03] MEDS: HYDROmorphone (DILAUDID) 4 MG TAB PO PRN ×2 (00:47→08:38)
[2021-01-03 04:00] VITALS: BP 116/67
[2021-01-03 04:12] LABS: ALBUMIN 3.7 GM/DL (3.2-4.5); BILIRUBIN,TOTAL 0.2 MG/DL (0.1-1.0); CALCIUM 8.9 MG/DL (8.5-10.1); CREATININE SERUM 1.94 MG/DL (0.60-1.30); POTASSIUM 4.6 MMOL/L (3.6-5.0); TOTAL PROTEIN 7.5 GM/DL (6.4-8.2)
[2021-01-03] MEDS: inSUlin ASPART (NovoLOG) 1 UNIT/0.01 ML (CHARGE PER UNIT) SC SCH (06:45)
[2021-01-03] MEDS ORDERED: inSUlin ASPART (NovoLOG) 1 UNIT/0.01 ML (CHARGE PER UNIT) SC SCH (08:00)
--- NOTE | 2021-01-03 08:04 | Consultation-Cardiology ---
HPI-Cardiology Cardiology Consultation: Date of Consultation 01/03/21 Time Seen by a Provider: 08:10 Date of Admission 01-02-21 Attending Physician Rossy Leung MD Admitting Physician No,Local Physician Consulting Physician Emani Tracy MD HPI: Chief Complaint: Hyperkalemia Dizziness Mr. Gillette is a 65 yr old male admitted to [facility] from the ED with hyperkalemia. He states he has been following with [facility] for cardiac care. He reports he has chronic ACW pain for which he has been placed on chronic pain medication regimen d/t inoperable CV dz. He states he was evaluated for cardiac transplant however, he was found to not be a suitable candidate d/t myasthenia gravis. He reports d/t low LVEF he received a pacer/defib approx 3 weeks ago at [facility]. He denies any defib shocks. He reports he was started on chronic Milrinone infusion which he has home health care with weekly lab that is managed by [facility] cardiology. He states he is unsure of the name of his specific manager bar at [facility] because he has so many different ones he has been seeing. He denies any SOB. No c/o LE swelling. No reports of syncope or near syncope. He reports he does have chest pain which her rates 6/10 on 1-10 pain scale. He reports his pain is unchanged from his chronic chest pain which is controlled with oral Dilaudid. Review of Systems-Cardiology Review of Systems Constitutional: No chills, No fever; malaise Eyes: No vision change Ears/Nose/Throat: No epistaxis, No recent hearing loss, No ulcerations Respiratory: As described under HPI Cardiovascular: As described under HPI Gastrointestinal: As described under HPI; No diarrhea, No nausea, No vomiting Genitourinary: No dysuria, No hematuria Skin: No rash on exposed areas, No ulcerations on exposed areas Psychiatric/Neurological: depression; No anxiety, No seizure, No focal weakness, No syncope Hematologic: No bleeding abnormalities All Other Systems Reviewed Negative Unless Noted: Yes THS-Ztmgsv-Odhjox Hx Patient Social History Smoking Status: Never a Smoker 2nd Hand Smoke Exposure: No Have you traveled recently?: No Alcohol Use?: No Pt feels they are or have been: No Immunizations Up To Date Tetanus Booster (TDap): More than 5yrs Date of Pneumonia Vaccine: Apr 14, 2017 Date of Influenza Vaccine: Jul 18, 2020 Past Medical History PMH As described under Assessment. Family Medical History Family Medical History: He reports his mother had CAD and HTN. He reports his father had HTN and a CVA. Family History: Alcoholism 19 FATHER Cancer 19 FATHER 19 MOTHER Chest pain 19 MOTHER Family history: Arthritis (grandmother) G8 SISTER Family history: Cardiovascular disease 19 MOTHER Family history: Diabetes mellitus G8 SISTER Family history: Hypertension 19 FATHER 19 MOTHER Hearing loss 19 FATHER Heart disease 19 MOTHER Malignant neoplasm of lung 19 MOTHER Myocardial infarction 19 MOTHER Stroke 19 FATHER Allergies and Home Medications Allergies Coded Allergies: albumin colloid, human (Verified Allergy, Unknown, 12/15/20) carvedilol (Unverified Allergy, Unknown, 01/22/10) codeine (Unverified Allergy, Unknown, PATIENT HAS RECEIVED MORPHINE WITHOUT ISSUE, 06/08/15) trazodone (Verified Allergy, Unknown, 12/15/20) Home Medications Aspirin 81 Mg Tab.chew, 81 MG PO DAILY, (Reported) Last Action: Reviewed Atorvastatin Calcium 80 Mg Tablet, 80 MG PO HS, (Reported) Last Action: Reviewed Celecoxib 100 Mg Capsule, 100 MG PO DAILY, (Reported) Last Action: Reviewed Cholecalciferol (Vitamin D3) 25 Mcg Capsule, 25 MCG PO BID, (Reported) Last Action: Reviewed Duloxetine HCl 30 Mg Capsule.dr, 30 MG PO DAILY, (Reported) Last Action: Reviewed Eculizumab 300 Mg/30 Ml Vial, 1,200 MG IV EVERY 2 WEEKS, (Reported) INFUSE OVER 35 MINUTES NEXT INSFUSION DUE 01-08-2021 Last Action: Reviewed Febuxostat 40 Mg Tablet, 40 MG PO DAILY, (Reported) Last Action: Reviewed Furosemide 40 Mg Tablet, 40 MG PO DAILY, (Reported) Last Action: Reviewed Gabapentin 600 Mg Tablet, 600 MG PO HS PRN for PAIN-BREAKTHROUGH, (Reported) Last Action: Reviewed Hydromorphone HCl 2 Mg Tablet, 2-4 MG PO Q6H PRN for PAIN-SEVERE (8-10), (Reported) Last Action: Reviewed Immune Glob,Adriano Caprylate(IgG) 40 Gm/400 Ml Vial, 50 GM IJ EVERY 3 WEEKS, (Reported) 50 GM FOR 2 DAYS NEXT INFUSION STARTS 01-10-2021 Last Action: Reviewed Insulin Aspart 300 Units/3 Ml Solution, 32 UNITS SQ AC, (Reported) Last Action: Reviewed Insulin Glargine,Hum.rec.anlog 100 Unit/1 Ml Insuln.pen, 27 UNITS SC BID, (Reported) Last Action: Reviewed Isosorbide Mononitrate 60 Mg Tab, 60 MG PO HS, (Reported) TAKES 2 (30MG) TABS Last Action: Reviewed Metoprolol Succinate 50 Mg Tab.er.24h, 50 MG PO DAILY, (Reported) Last Action: Reviewed Milrinone Lactate/D5w 20 Mg/100 Ml Piggyback, 20 MG IV UD, (Reported) 24.375MCG/MIN Last Action: New Order Mycophenolate Mofetil 500 Mg Tablet, 1,000 MG PO BID, (Reported) Last Action: Reviewed [place]-3 Fatty Acids/Fish Oil 1 Each Capsule, 1 EACH PO HS, (Reported) Last Action: Reviewed Pantoprazole Sodium 40 Mg Tablet.dr, 40 MG PO BID, (Reported) Last Action: Reviewed Penicillin V Potassium 500 Mg Tablet, 500 MG PO BID, (Reported) Last Action: Reviewed Prednisone 5 Mg Tablet, 15 MG PO DAILY, (Reported) TAKES 3 (5MG) TABS Last Action: Reviewed Pyridostigmine [place] 60 Mg Tab, 60 MG PO TID, (Reported) Last Action: Reviewed Sacubitril/Valsartan 1 Each Tablet, 1 EA PO BID, (Reported) Last Action: Reviewed Spironolactone 25 Mg Tablet, 25 MG PO DAILY, (Reported) Last Action: Reviewed Patient Home Medication List Home Medication List Reviewed: Yes Physical Exam-Cardiology Physical Exam Vital Signs/I&O Capillary Refill : Less Than 3 Seconds Constitutional: AAO x 3, well-developed, well-nourished HEENT: hearing is well preserved, oral hygience is good Neck: No carotid bruit; carotid pulses are 2 + bilaterally Respiratory: No accessory muscle use, No respiratory distress Cardiovascular: irregularly irregular; No JVD; S1 and S2 Gastrointestinal: No tender; soft, round, audible bowel sounds Extremities: no lower extremity edema bilateral Neurologic/Psychiatric: grossly intact (moves all extremities) Skin: No rash on exposed areas, No ulcerations on exposed areas Data Review Labs Radiology NAME: [facility] REC#: [id number] PT STATUS: ADM IN : 1955 PHYSICIAN: EVERARDO MARQUIS DO ADMIT DATE: 12/15/20/ICU Signed Date of Exam:12/16/20 CHEST 1 VIEW, AP/PA ONLY EXAMINATION: Portable erect AP chest at 3:55 AM INDICATION: Unstable angina The cardiomegaly and the left-sided pacemaker seen on the prior exam of 12/15/2020 are again evident and not significantly changed. However, the central pulmonary vascularity is not as prominent as on the prior study and both upper lungs do seem better aerated. The lung bases also remain generally clear. The mediastinum is not widened. The osseous structures are intact. The central venous catheter on the right is unchanged in position. IMPRESSION: The appearance of the chest has improved as the pulmonary congestion noted previously has essentially resolved. Both upper lungs also seem better aerated. 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 Hanson showed LVEF 10-15% DERECK and bradycardia during OS - S/P ILR implant on 07-17-2020 (d/t report of profound bradycardia during hospitalization at [facility]). ILR has deomonstrated intermittent, brief, profound bradycardia but nothing significant since being on CPAP - on CPAP for DERECK since Sep 2020 Ac resp failure in early Jun 2020 and early Jul 2020, probably due to acute HFrEF and / or myasthenia crisis, treated at [facility] in Jun and Jul 2020 Myasthenia gravis, treated at [facility] with plasmapheresis, prednisone and pyridostigmine and ivIg CAD - Last card cath on 09/27/19 at [place], [place]: Coronary artery disease consisting of severe distal disease of the terminal left anterior descending where the vessel is of a very small caliber and not amenable to intervention. The mid left anterior descending artery has a widely patent stented segment (known to be overlapping Promus 3.0 x 12 and 2.25 x 16 mm stents, the overlap of which has previously been treated with a 3 mm balloon). The right coronary artery exhibits a chronic total occlusion within the stented distal part of the vessel and attempts at percutaneous intervention to this vessel today were unsuccessful. The left circumflex artery exhibits mild plaque. Mildly elevated left ventricular end-diastolic pressure. - Last cath on 06/21/20 at [facility] with similar results (severe, diffuse, distal disease), no intervention undertaken CT chest 07/04/20: probable small airway or small vessel infection or inflammatory process, med and hilar adenopathy (chronic), could not exclude sarcoidosis Labile hypertension Low TSH in Jul 2015, being followed by his pcp H/o PUD, based on endoscopy of 06/08/[address] Minaya that showed multiple gastric and duodenal ulcers. Anxiety Echo of 07/04/20: showed LVEF 40-45%, restrictive filling pattern / diastolic dysfunction, mild MAC, mildly to mod dilated LA, hypokinesis to akinesis of anteroseptal and apical myocardium, RVSP 30 mmHg Maturity onset diabetes mellitus, being managed by Dr. Umanzor. Hyperlipidemia - intolerant to statin (muscle discomfort) Diagnosed with SLE by his pcp in early 2017 (managed by pcp) Gout. Carotid arterial disease. CTA of carotids on 09/20/15 showed 50% prox R ICA and less than 50% L ICA bulb stenoses. Mild carotid art disease on carotid u/s of 10/17/16 Peripheral arterial disease. S/p bilateral leg artery interventions by Dr Layton in Jul and Aug 2014. No leg claudication since Discussion and Recomendations Complex management issue for reasons noted above Hyperkalemia likely multifactorial secondary to acute on chronic renal dz, medications and vol depletion Hyperkalemia which has resolved BLADIMIR MCLAIN Jan 03, 2021 08:04
[2021-01-03 08:14] VITALS: BP 138/51
[2021-01-03] MEDS: SACUBITRIL/VALSARTAN 24/26 MG (ENTRESTO) TABLET PO SCH (08:38)
[2021-01-03] MEDS ORDERED: PHARMACY TO DOSE SQ SCH (09:00)
[2021-01-03] MEDS ORDERED: meTOproloL SUCCINATE 50 MG (TOPROL XL) TAB PO SCH (09:00)
[2021-01-03] MEDS ORDERED: SACU1TAB2 PO (09:01)
[2021-01-03] MEDS ORDERED: MILR20PI IV (09:01)
[2021-01-03] MEDS ORDERED: HYDR2TAB30 PO (09:01)
[2021-01-03] MEDS ORDERED: ISOS60TA63 PO (09:01)
[2021-01-03] MEDS ORDERED: INSU100I14 SQ (09:01)
[2021-01-03] MEDS ORDERED: SPIRONOLACTONE 25 MG (ALDACTONE) TAB PO ONE (09:30)
[2021-01-03] MEDS ORDERED: HYDR2TAB6 PO (09:44)
[2021-01-03] MEDS ORDERED: MYCO500T3 PO (09:44)
[2021-01-03] MEDS ORDERED: GBPN600T PO (09:44)
[2021-01-04] MEDS ORDERED: FUROSEMIDE 40 MG (LASIX) TAB PO SCH (09:00)
== END 2021-01-03 12:20 | disposition home or self-care (01) ==
LOC: ER 15:46 → UNDOADMOB 17:28 → CSD 17:28 → UNDODISOB 01-03 12:20
PROVIDERS: ADMIT Internal Medicine; ATTEND Internal Medicine
DX: E87.5 Hyperkalemia (principal); I13.0 Hypertensive heart and chronic kidney disease with heart failure and stage 1 through stage 4 chronic kidney disease, or unspecified chronic kidney disease; N18.30 Chronic kidney disease, stage 3 unspecified; E11.22 Type 2 diabetes mellitus with diabetic chronic kidney disease; I25.2 Old myocardial infarction; I50.9 Heart failure, unspecified; I77.9 Disorder of arteries and arterioles, unspecified; I73.9 Peripheral vascular disease, unspecified; G70.00 Myasthenia gravis without (acute) exacerbation; N17.9 Acute kidney failure, unspecified; I25.10 Atherosclerotic heart disease of native coronary artery without angina pectoris; E78.00 Pure hypercholesterolemia, unspecified; K21.9 Gastro-esophageal reflux disease without esophagitis; M19.90 Unspecified osteoarthritis, unspecified site; M10.9 Gout, unspecified; F41.9 Anxiety disorder, unspecified; G47.33 Obstructive sleep apnea (adult) (pediatric); Z95.0 Presence of cardiac pacemaker; Z79.899 Other long term (current) drug therapy; Z79.82 Long term (current) use of aspirin; Z88.8 Allergy status to other drugs, medicaments and biological substances; Z88.5 Allergy status to narcotic agent; Z79.4 Long term (current) use of insulin; Z80.1 Family history of malignant neoplasm of trachea, bronchus and lung; Z82.3 Family history of stroke
CPT/HCPCS: 36556; 80048; 80053; 82947 ×2; 93005; 96374; 96375; 99284; G0378; 36415

== ENCOUNTER 2021-01-10 21:35 | Emergency (ER) | payer MEDICARE, MEDICAID ==
[~2021-01-10] VITALS: Ht 172 cm; Wt 93.0 kg
[~2021-01-10 21:35] MED LIST changes: +HYDR2TAB30 PO; +HYDR2TAB6 PO; +INSU100I14 SQ; +ISOS60TA63 PO; +MILR20PI IV; +MYCO500T3 PO; +SACU1TAB2 PO
[2021-01-10 21:52] LABS: BASOPHILS % (AUTO) 0 % (0-10); EOSINOPHILS # (AUTO) 0.2 10^3/uL (0.0-0.3); EOSINOPHILS % (AUTO) 2 % (0-10); HEMATOCRIT 41 % (40-54); HEMOGLOBIN 12.4 g/dL (13.3-17.7); LYMPHOCYTES # (AUTO) 2.3 10^3/uL (1.0-4.0); LYMPHOCYTES % (AUTO) 20 % (12-44); MEAN CORPUSCULAR HEMOGLOBIN 24 pg (25-34); MEAN CORPUSCULAR HGB CONC 30 g/dL (32-36); MEAN CORPUSCULAR VOLUME 81 fL (80-99); MONOCYTES # (AUTO) 0.7 10^3/uL (0.0-1.0); MONOCYTES % (AUTO) 6 % (0-12); NEUTROPHILS % (AUTO) 71 % (42-75); PLATELET COUNT 221 10^3/uL (130-400); WHITE BLOOD COUNT 11.3 10^3/uL (4.3-11.0)
--- NOTE | 2021-01-10 21:54 | Diagnostic Imaging Report ---
INDICATION: Shortness of breath and chest pain. EXAMINATION: PA chest was obtained at 9:42 p.m. COMPARISON: 12/16/2020. FINDINGS: There is cardiomegaly. Pacemaker is unchanged. The right-sided central venous catheter is unchanged. There is no focal infiltrate, pneumothorax or pleural fluid. There are old right-sided rib fractures. Small metallic densities overlying the right chest are unchanged from the prior study. IMPRESSION: Cardiomegaly and postop changes with no acute infiltrate, pleural fluid or pneumothorax. Dictated by: Dictated on workstation # [id number]
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
[2021-01-10 22:07] LABS: PROTHROMBIN TIME PATIENT 13.7 SEC (12.2-14.7)
[2021-01-10 22:08] LABS: POTASSIUM 3.7 MMOL/L (3.6-5.0)
[2021-01-10 22:09] LABS: CALCIUM 8.9 MG/DL (8.5-10.1)
[2021-01-10 22:10] LABS: TOTAL PROTEIN 7.2 GM/DL (6.4-8.2)
[2021-01-10 22:12] LABS: BILIRUBIN,TOTAL 0.3 MG/DL (0.1-1.0)
[2021-01-10 22:14] LABS: CREATININE SERUM 1.61 MG/DL (0.60-1.30)
[2021-01-10 22:17] LABS: MAGNESIUM 1.5 MG/DL (1.6-2.4)
[2021-01-10 22:28] LABS: CREATINE KINASE MB 4.2 NG/ML (<6.6)
[2021-01-10] MEDS ORDERED: HYDROmorphone 2 MG/ML VIAL (DILAUDID) IV ONE (23:30)
[2021-01-10 23:48] VITALS: BP 132/77
== END 2021-01-11 00:07 | disposition short-term general hospital (02) ==
LOC: EDUNIT# 21:35 → ER 21:37
DX: G70.01 Myasthenia gravis with (acute) exacerbation (principal); G89.29 Other chronic pain; R07.9 Chest pain, unspecified; I11.0 Hypertensive heart disease with heart failure; I50.9 Heart failure, unspecified; R77.8 Other specified abnormalities of plasma proteins; E11.9 Type 2 diabetes mellitus without complications; E78.00 Pure hypercholesterolemia, unspecified; K21.9 Gastro-esophageal reflux disease without esophagitis; F41.9 Anxiety disorder, unspecified; Z20.822 Contact with and (suspected) exposure to COVID-19; Z88.5 Allergy status to narcotic agent; Z88.8 Allergy status to other drugs, medicaments and biological substances; Z86.73 Personal history of transient ischemic attack (TIA), and cerebral infarction without residual deficits; Z95.810 Presence of automatic (implantable) cardiac defibrillator; Z95.5 Presence of coronary angioplasty implant and graft; Z79.4 Long term (current) use of insulin; Z79.82 Long term (current) use of aspirin; Z79.52 Long term (current) use of systemic steroids; Z79.899 Other long term (current) drug therapy
CPT/HCPCS: 36556; 71045; 80053; 82550; 82553; 83735; 83880; 84484; 85025; 85610; 85730; 93005; 93041; 99291; U0002; 36415; 87635

== ENCOUNTER 2021-02-06 21:54 | Emergency (ER) | payer MEDICARE, MEDICAID ==
[~2021-02-06] VITALS: Ht 172.7 cm; Wt 93.4 kg
[2021-02-06] MEDS ORDERED: ASPIRIN 81 MG CHEW (CHILDREN'S ASA) PO ONE (22:15)
[2021-02-06] MEDS ORDERED: morphine INJ 10 MG/ML 1ML (SYR OR VIAL) IVP ONE (22:15)
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
[2021-02-06 22:22] LABS: BASOPHILS % (AUTO) 0 % (0-10); EOSINOPHILS # (AUTO) 0.1 10^3/uL (0.0-0.3); EOSINOPHILS % (AUTO) 1 % (0-10); HEMATOCRIT 43 % (40-54); HEMOGLOBIN 13.5 g/dL (13.3-17.7); LYMPHOCYTES # (AUTO) 1.7 10^3/uL (1.0-4.0); LYMPHOCYTES % (AUTO) 16 % (12-44); MEAN CORPUSCULAR HEMOGLOBIN 25 pg (25-34); MEAN CORPUSCULAR HGB CONC 32 g/dL (32-36); MEAN CORPUSCULAR VOLUME 79 fL (80-99); MEAN PLATELET VOLUME 10.1 fL (9.0-12.2); MONOCYTES # (AUTO) 0.7 10^3/uL (0.0-1.0); MONOCYTES % (AUTO) 7 % (0-12); NEUTROPHILS # (AUTO) 8.2 10^3/uL (1.8-7.8); NEUTROPHILS % (AUTO) 76 % (42-75); PLATELET COUNT 246 10^3/uL (130-400); WHITE BLOOD COUNT 10.8 10^3/uL (4.3-11.0)
[2021-02-06 22:34] LABS: ALBUMIN 4.1 GM/DL (3.2-4.5); POTASSIUM 4.1 MMOL/L (3.6-5.0)
[2021-02-06 22:35] LABS: CALCIUM 9.2 MG/DL (8.5-10.1)
[2021-02-06 22:37] LABS: TOTAL PROTEIN 7.1 GM/DL (6.4-8.2)
[2021-02-06 22:38] LABS: BILIRUBIN,TOTAL 0.3 MG/DL (0.1-1.0)
[2021-02-06 22:40] LABS: CREATININE SERUM 1.64 MG/DL (0.60-1.30)
[2021-02-06 22:43] LABS: MAGNESIUM 1.8 MG/DL (1.6-2.4)
[2021-02-06 22:49] LABS: PROTHROMBIN TIME PATIENT 13.1 SEC (12.2-14.7)
[2021-02-06 22:50] LABS: CREATINE KINASE MB 4.2 NG/ML (<6.6)
[2021-02-06 23:14] LABS: BILIRUBIN,URINE NEGATIVE (NEGATIVE); CLARITY,URINE CLEAR; COLOR,URINE YELLOW; GLUCOSE, URINE (UA) NEGATIVE (NEGATIVE); KETONES,URINE TRACE (NEGATIVE); LEUKOCYTE ESTERASE ,URINE NEGATIVE (NEGATIVE); NITRITE,URINE NEGATIVE (NEGATIVE); PROTEIN,URINE TRACE (NEGATIVE)
[2021-02-06 23:27] LABS: AMPHETAMINE SCREEN, URINE NEGATIVE (NEGATIVE); BARBITURATE SCREEN URINE NEGATIVE (NEGATIVE); BENZODIAZEPINES SCREEN URINE NEGATIVE (NEGATIVE); CANNABINOID SCREEN, URINE NEGATIVE (NEGATIVE); COCAINE SCREEN URINE NEGATIVE (NEGATIVE); METHADONE STAT NEGATIVE (NEGATIVE); METHAMPHETAMINE SCREEN URINE S NEGATIVE (NEGATIVE); OPIATE SCREEN URINE POSITIVE (NEGATIVE); OXYCODONE STAT NEGATIVE (NEGATIVE); PROPOXYPHENE STAT NEGATIVE (NEGATIVE); TRICYCLIC ANTIDEPRESSANTS SCRE NEGATIVE (NEGATIVE)
[2021-02-07 03:39] VITALS: BP 126/71
--- NOTE | 2021-02-07 08:12 | Diagnostic Imaging Report ---
INDICATION: Chest pain. Compared 01/10/2021 FINDINGS: Right IJ at the upper SVC stable. Pacemaker device stable. Old healed right rib deformities chronic. Heart size stable. No vascular congestion. No edema, pneumonia, effusion or pneumothorax. IMPRESSION: No acute appearing abnormality Dictated by: Dictated on workstation # [id number]
== END 2021-02-07 03:39 | disposition home or self-care (01) ==
LOC: EDUNIT# 21:54 → ER 21:57
DX: I11.0 Hypertensive heart disease with heart failure (principal); I50.9 Heart failure, unspecified; E78.00 Pure hypercholesterolemia, unspecified; G70.00 Myasthenia gravis without (acute) exacerbation; E11.9 Type 2 diabetes mellitus without complications; K21.9 Gastro-esophageal reflux disease without esophagitis; F41.9 Anxiety disorder, unspecified; Z88.5 Allergy status to narcotic agent; Z88.8 Allergy status to other drugs, medicaments and biological substances; Z86.73 Personal history of transient ischemic attack (TIA), and cerebral infarction without residual deficits; Z79.4 Long term (current) use of insulin; Z79.899 Other long term (current) drug therapy; Z79.82 Long term (current) use of aspirin; Z79.52 Long term (current) use of systemic steroids
CPT/HCPCS: 71045; 80053; 80306; 81000; 82550; 82553; 83735; 83874; 83880; 84484 ×2; 85025; 85610; 85730; 93005 ×2; 93041; 99284; G0480; 36415; 80320

== ENCOUNTER 2021-02-07 20:36 | Emergency (ER) | payer MEDICARE, MEDICAID ==
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
[2021-02-07 21:08] LABS: BASOPHILS % (AUTO) 0 % (0-10); EOSINOPHILS # (AUTO) 0.1 10^3/uL (0.0-0.3); EOSINOPHILS % (AUTO) 1 % (0-10); HEMATOCRIT 40 % (40-54); HEMOGLOBIN 12.9 g/dL (13.3-17.7); LYMPHOCYTES # (AUTO) 1.2 10^3/uL (1.0-4.0); LYMPHOCYTES % (AUTO) 11 % (12-44); MEAN CORPUSCULAR HEMOGLOBIN 25 pg (25-34); MEAN CORPUSCULAR HGB CONC 32 g/dL (32-36); MEAN CORPUSCULAR VOLUME 79 fL (80-99); MONOCYTES # (AUTO) 0.7 10^3/uL (0.0-1.0); MONOCYTES % (AUTO) 7 % (0-12); NEUTROPHILS # (AUTO) 8.4 10^3/uL (1.8-7.8); NEUTROPHILS % (AUTO) 80 % (42-75); PLATELET COUNT 222 10^3/uL (130-400); WHITE BLOOD COUNT 10.4 10^3/uL (4.3-11.0)
[2021-02-07 21:18] LABS: POTASSIUM 4.2 MMOL/L (3.6-5.0)
[2021-02-07 21:19] LABS: CALCIUM 8.6 MG/DL (8.5-10.1)
[2021-02-07 21:20] LABS: TOTAL PROTEIN 6.9 GM/DL (6.4-8.2)
[2021-02-07 21:22] LABS: BILIRUBIN,TOTAL 0.4 MG/DL (0.1-1.0)
--- NOTE | 2021-02-07 21:22 | Diagnostic Imaging Report ---
INDICATION: Dysphagia. COMPARISON: Prior examination from 02/06/2021. FINDINGS: There is cardiomegaly. Pacemaker overlies the left hemithorax. No pleural effusion or pneumothorax. Mediastinum is unremarkable. IMPRESSION: 1. No acute cardiopulmonary abnormality. 2. Cardiomegaly. Dictated by: Dictated on workstation # [id number]
[2021-02-07 21:24] LABS: CREATININE SERUM 1.51 MG/DL (0.60-1.30)
[2021-02-07 22:47] VITALS: BP 119/83
== END 2021-02-07 22:57 | disposition short-term general hospital (02) ==
LOC: EDUNIT# 20:36 → ER 20:37
DX: G70.01 Myasthenia gravis with (acute) exacerbation (principal); I10 Essential (primary) hypertension; E78.00 Pure hypercholesterolemia, unspecified; F41.9 Anxiety disorder, unspecified; E11.9 Type 2 diabetes mellitus without complications; K21.9 Gastro-esophageal reflux disease without esophagitis; E66.9 Obesity, unspecified; Z68.45 Body mass index [BMI] 70 or greater, adult; Z88.5 Allergy status to narcotic agent; Z88.8 Allergy status to other drugs, medicaments and biological substances; Z86.73 Personal history of transient ischemic attack (TIA), and cerebral infarction without residual deficits; Z79.82 Long term (current) use of aspirin; Z79.52 Long term (current) use of systemic steroids; Z79.4 Long term (current) use of insulin; Z79.899 Other long term (current) drug therapy
CPT/HCPCS: 36415; 71045; 80053; 85025

== ENCOUNTER 2021-02-15 02:44 | Emergency (ER) | payer MEDICARE, MEDICAID ==
[~2021-02-15] VITALS: Ht 172.7 cm; Wt 93.0 kg
[2021-02-15 03:14] LABS: BASOPHILS % (AUTO) 0 % (0-10); EOSINOPHILS % (AUTO) 0 % (0-10); HEMATOCRIT 40 % (40-54); HEMOGLOBIN 12.8 g/dL (13.3-17.7); LYMPHOCYTES # (AUTO) 0.5 10^3/uL (1.0-4.0); LYMPHOCYTES % (AUTO) 4 % (12-44); MEAN CORPUSCULAR HEMOGLOBIN 25 pg (25-34); MEAN CORPUSCULAR HGB CONC 32 g/dL (32-36); MEAN CORPUSCULAR VOLUME 80 fL (80-99); MEAN PLATELET VOLUME 10.1 fL (9.0-12.2); MONOCYTES # (AUTO) 0.7 10^3/uL (0.0-1.0); MONOCYTES % (AUTO) 5 % (0-12); NEUTROPHILS # (AUTO) 12.3 10^3/uL (1.8-7.8); NEUTROPHILS % (AUTO) 91 % (42-75); PLATELET COUNT 189 10^3/uL (130-400); WHITE BLOOD COUNT 13.5 10^3/uL (4.3-11.0)
[2021-02-15] MEDS ORDERED: ACETAMINOPHEN 500 MG TAB (TYLENOL) PO ONE (03:15)
[2021-02-15 03:25] LABS: ALBUMIN 3.8 GM/DL (3.2-4.5)
[2021-02-15 03:29] LABS: BILIRUBIN,TOTAL 0.5 MG/DL (0.1-1.0)
[2021-02-15 03:31] LABS: CREATININE SERUM 1.82 MG/DL (0.60-1.30)
[2021-02-15 03:34] LABS: MAGNESIUM 1.5 MG/DL (1.6-2.4)
[2021-02-15 03:36] LABS: BAND NEUTROPHILS 4 %; LYMPHOCYTES % (MANUAL) 5 %; MONOCYTES % (MANUAL) 4 %; NEUTROPHILS % (MANUAL) 87 %; RBC MORPH NORMAL
[2021-02-15 04:50] LABS: BILIRUBIN,URINE NEGATIVE (NEGATIVE); CLARITY,URINE CLEAR; COLOR,URINE YELLOW; GLUCOSE, URINE (UA) NEGATIVE (NEGATIVE); KETONES,URINE NEGATIVE (NEGATIVE); LEUKOCYTE ESTERASE ,URINE NEGATIVE (NEGATIVE); NITRITE,URINE NEGATIVE (NEGATIVE); PROTEIN,URINE 1+ (NEGATIVE)
[2021-02-15 04:58] LABS: BACTERIA,URINE NEGATIVE /HPF; SQUAMOUS EPITHELIAL CELL,UR RARE /HPF
[2021-02-15] MEDS ORDERED: ONDANSETRON 4 MG/2 ML (SDV) Z0FRAN IVP ONE ×2 (05:00→05:30)
[2021-02-15] MEDS ORDERED: CEFEPIME INJECTION 1,000 MG in WATER (STERILE) FOR INJECTION 10 ML IV ONE (05:30)
--- NOTE | 2021-02-15 06:21 | Diagnostic Imaging Report ---
INDICATION: Shortness of breath Portable chest 3:29 AM Right IJ central line tip projects over the SVC. There is a dual-chamber pacemaker. There is cardiomegaly. Pulmonary vascularity is normal. Lungs are clear. IMPRESSION: Cardiomegaly without evidence of pulmonary venous hypertension Dictated by: Dictated on workstation # [id number]
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
[2021-02-15] MEDS ORDERED: LORazepam INJ 2 MG/ML (ATIVAN) VIAL IVP ONE (06:30)
[2021-02-15] MEDS ORDERED: NS IV 500 ML 500 ML IV ONE ×2 (06:30→07:30)
[2021-02-15] MEDS ORDERED: LORazepam INJ 2 MG/ML (ATIVAN) VIAL ONE (06:35)
[2021-02-15] MEDS ORDERED: NS IV 500 ML 500 ML ONE (07:19)
--- NOTE | 2021-02-15 07:34 | Diagnostic Imaging Report ---
INDICATION: Chest pain Portable chest 7:20 AM Right IJ central line tip projects over the SVC. There is a dual-chamber pacemaker. There is cardiomegaly. Pulmonary vascularity is normal. Lungs are clear. There are no effusions or pneumothoraces. Left IJ central line tip projects over the left innominate vein. IMPRESSION: Cardiomegaly without evidence of pulmonary venous hypertension. Dictated by: Dictated on workstation # [id number]
[2021-02-15 07:35] LABS: ABG BASE EXCESS -9.7 MMOL/L (-2.5-2.5); ABG OXYGEN SATURATION 97 % (94-100); ABG PCO2 26 MMHG (35-45); ABG PH 7.37 (7.37-7.43); ABG PO2 92 MMHG (79-93); ABG TCO2 15.6 MMOL/L (21.0-31.0)
[2021-02-15 07:38] LABS: ALLENS TEST YES-POS; INSPIRED O2 4 L; VENTILATOR NO
[2021-02-15 07:45] VITALS: BP 136/75
--- NOTE | 2021-02-15 08:11 | Diagnostic Imaging Report ---
EXAMINATION: CT chest without contrast. TECHNIQUE: Multiple contiguous axial images were obtained through the chest without the use of intravenous contrast. All CT scans use one or more of the following dose optimizing techniques: automated exposure control, MA and/or KvP adjustment based on patient size and exam type or iterative reconstruction. HISTORY: Dyspnea. Rule out pneumonia. COMPARISON: CT chest on 07/04/2020. FINDINGS: The heart size is prominent. No pericardial effusion is present. A left pectoral pacemaker is in place. There is calcified aortic and coronary atherosclerotic plaque without aneurysm. There is no mediastinal, hilar, or axillary lymphadenopathy. The lungs demonstrate no pulmonary nodules or masses. There are no focal areas of consolidation. No central endobronchial obstructing lesions are identified. There is no pleural effusion or pneumothorax. The osseous structures demonstrate no acute abnormalities. Old right-sided rib fractures are noted. Limited views of the upper abdominal structures demonstrate no acute abnormalities. Both adrenal glands are unremarkable. IMPRESSION: 1. No focal consolidations. No suspicious pulmonary nodules. No acute process is seen in the chest. 2. Mild cardiomegaly. Agree with overnight report. Dictated by: Dictated on workstation # [id number]
== END 2021-02-15 07:45 | disposition short-term general hospital (02) ==
LOC: EDUNIT# 02:44 → ER 02:45
DX: I11.0 Hypertensive heart disease with heart failure (principal); R65.21 Severe sepsis with septic shock; I50.9 Heart failure, unspecified; K21.9 Gastro-esophageal reflux disease without esophagitis; E11.9 Type 2 diabetes mellitus without complications; I25.10 Atherosclerotic heart disease of native coronary artery without angina pectoris; E78.00 Pure hypercholesterolemia, unspecified; F41.9 Anxiety disorder, unspecified; Z88.5 Allergy status to narcotic agent; Z20.822 Contact with and (suspected) exposure to COVID-19; Z86.73 Personal history of transient ischemic attack (TIA), and cerebral infarction without residual deficits; Z79.899 Other long term (current) drug therapy; Z79.52 Long term (current) use of systemic steroids; Z79.82 Long term (current) use of aspirin; Z79.4 Long term (current) use of insulin
CPT/HCPCS: 36415; 36556; 71045; 71250; 80053; 81000; 82805; 82947; 83605; 83735; 83880; 84484; 85007; 85027; 86141; 87040; 87077; 87088; 87186; 87636; 93005; 93041; 99291; 99292

== ENCOUNTER 2021-03-24 21:59 | Emergency (ER) | payer MEDICARE, MEDICAID ==
[~2021-03-24] VITALS: Ht 173 cm; Wt 95.0 kg
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
[2021-03-24 22:20] LABS: BASOPHILS % (AUTO) 0 % (0-10); EOSINOPHILS # (AUTO) 0.1 10^3/uL (0.0-0.3); EOSINOPHILS % (AUTO) 1 % (0-10); HEMATOCRIT 39 % (40-54); HEMOGLOBIN 12.5 g/dL (13.3-17.7); LYMPHOCYTES # (AUTO) 1.9 10^3/uL (1.0-4.0); LYMPHOCYTES % (AUTO) 15 % (12-44); MEAN CORPUSCULAR HEMOGLOBIN 26 pg (25-34); MEAN CORPUSCULAR HGB CONC 32 g/dL (32-36); MEAN CORPUSCULAR VOLUME 82 fL (80-99); MEAN PLATELET VOLUME 9.9 fL (9.0-12.2); MONOCYTES # (AUTO) 0.9 10^3/uL (0.0-1.0); MONOCYTES % (AUTO) 7 % (0-12); NEUTROPHILS # (AUTO) 9.7 10^3/uL (1.8-7.8); NEUTROPHILS % (AUTO) 76 % (42-75); PLATELET COUNT 250 10^3/uL (130-400); WHITE BLOOD COUNT 12.7 10^3/uL (4.3-11.0)
[2021-03-24 22:35] LABS: ALBUMIN 3.8 GM/DL (3.2-4.5); POTASSIUM 3.9 MMOL/L (3.6-5.0)
[2021-03-24 22:36] LABS: CALCIUM 8.8 MG/DL (8.5-10.1)
[2021-03-24 22:37] LABS: TOTAL PROTEIN 7.6 GM/DL (6.4-8.2)
[2021-03-24 22:39] LABS: BILIRUBIN,TOTAL 0.3 MG/DL (0.1-1.0)
[2021-03-24 22:41] LABS: CREATININE SERUM 1.94 MG/DL (0.60-1.30)
[2021-03-24] MEDS ORDERED: inSUlin (REGULAR) HUMAN 1 UNIT/0.01 ML (CHARGE PER UNIT) SC ONE (23:00)
[2021-03-24] MEDS ORDERED: HYDROmorphone (DILAUDID) 4 MG TAB PO ONE (23:15)
[2021-03-24 23:26] LABS: BILIRUBIN,URINE NEGATIVE (NEGATIVE); CLARITY,URINE CLEAR; COLOR,URINE YELLOW; GLUCOSE, URINE (UA) 1+ (NEGATIVE); KETONES,URINE TRACE (NEGATIVE); LEUKOCYTE ESTERASE ,URINE NEGATIVE (NEGATIVE); NITRITE,URINE NEGATIVE (NEGATIVE); PH,URINE 5.5 (5-9); PROTEIN,URINE TRACE (NEGATIVE)
[2021-03-24 23:30] LABS: BACTERIA,URINE TRACE /HPF; HYALINE CASTS, URINE 0-2 /LPF; SQUAMOUS EPITHELIAL CELL,UR RARE /HPF; WBC,URINE 0-2 /HPF
[2021-03-25] MEDS ORDERED: inSUlin (REGULAR) HUMAN 1 UNIT/0.01 ML (CHARGE PER UNIT) SC ONE (00:30)
[2021-03-25 01:37] VITALS: BP 130/92
--- NOTE | 2021-03-25 08:30 | Diagnostic Imaging Report ---
INDICATION: Shortness of breath. Comparison with 02/15/2021. FINDINGS: Mild cardiomegaly remains present. Lungs are well-aerated and clear. There is no air-trapping. Pulmonary vasculature is normal. No pneumothorax or pleural effusion. Pacemaker on the left appears unchanged. Port-A-Cath on the right has been removed. Old rib deformities are noted. IMPRESSION: No acute abnormalities when compared with previous exam. There has been slight decrease in cardiac size in the interim. Dictated by: Dictated on workstation # [id number]
== END 2021-03-25 02:12 | disposition home or self-care (01) ==
LOC: EDUNIT# 21:59 → ER 22:00
DX: E11.65 Type 2 diabetes mellitus with hyperglycemia (principal); I11.0 Hypertensive heart disease with heart failure; K21.9 Gastro-esophageal reflux disease without esophagitis; E78.00 Pure hypercholesterolemia, unspecified; I25.10 Atherosclerotic heart disease of native coronary artery without angina pectoris; F41.9 Anxiety disorder, unspecified; M10.9 Gout, unspecified; Z20.822 Contact with and (suspected) exposure to COVID-19; Z86.73 Personal history of transient ischemic attack (TIA), and cerebral infarction without residual deficits; Z79.4 Long term (current) use of insulin; Z79.52 Long term (current) use of systemic steroids; Z79.899 Other long term (current) drug therapy; Z79.82 Long term (current) use of aspirin
CPT/HCPCS: 36415; 71045; 80053; 81000; 82010; 82947; 83880; 84145; 84484; 85025; 86141; 87636; 93005

== ENCOUNTER 2021-03-26 10:18 | Emergency (ER) | payer MEDICARE, MEDICAID ==
[~2021-03-26] VITALS: Ht 172.7 cm; Wt 95.9 kg
[2021-03-26] MEDS ORDERED: NS IV 1000 ML 1,000 ML IV SCH (10:30)
[2021-03-26 10:44] LABS: BASOPHILS % (AUTO) 0 % (0-10); EOSINOPHILS # (AUTO) 0.2 10^3/uL (0.0-0.3); EOSINOPHILS % (AUTO) 2 % (0-10); HEMATOCRIT 42 % (40-54); HEMOGLOBIN 12.7 g/dL (13.3-17.7); LYMPHOCYTES # (AUTO) 1.5 10^3/uL (1.0-4.0); LYMPHOCYTES % (AUTO) 12 % (12-44); MEAN CORPUSCULAR HEMOGLOBIN 25 pg (25-34); MEAN CORPUSCULAR HGB CONC 31 g/dL (32-36); MEAN CORPUSCULAR VOLUME 82 fL (80-99); MEAN PLATELET VOLUME 9.9 fL (9.0-12.2); MONOCYTES # (AUTO) 0.9 10^3/uL (0.0-1.0); MONOCYTES % (AUTO) 7 % (0-12); NEUTROPHILS # (AUTO) 10.2 10^3/uL (1.8-7.8); NEUTROPHILS % (AUTO) 79 % (42-75); PLATELET COUNT 242 10^3/uL (130-400)
[2021-03-26 10:58] LABS: ALBUMIN 3.9 GM/DL (3.2-4.5); POTASSIUM 4.4 MMOL/L (3.6-5.0)
[2021-03-26 10:59] LABS: CALCIUM 9.3 MG/DL (8.5-10.1)
[2021-03-26 11:00] LABS: TOTAL PROTEIN 7.3 GM/DL (6.4-8.2)
[2021-03-26 11:02] LABS: BILIRUBIN,TOTAL 0.6 MG/DL (0.1-1.0)
[2021-03-26 11:04] LABS: CREATININE SERUM 1.44 MG/DL (0.60-1.30); INR 0.9 (0.8-1.4); PROTHROMBIN TIME PATIENT 12.8 SEC (12.2-14.7)
[2021-03-26 11:06] LABS: BILIRUBIN,DIRECT 0.2 MG/DL (0.0-0.3); BILIRUBIN,INDIRECT 0.4 MG/DL
[2021-03-26 11:07] LABS: MAGNESIUM 1.8 MG/DL (1.6-2.4)
[2021-03-26 11:13] LABS: ERYTHROCYTE SEDIMENTATION RATE 13 MM/HR (0-30)
[2021-03-26 11:15] LABS: CREATINE KINASE MB 5.1 NG/ML (<6.6)
--- NOTE | 2021-03-26 11:23 | Diagnostic Imaging Report ---
EXAMINATION: Chest, one view. HISTORY: Fever. COMPARISON: 03/24/2021. FINDINGS: The lung volumes are normal. No focal consolidation is seen. No large pleural effusion or pneumothorax is seen. The cardiomediastinal silhouette is prominent with stable configuration of the left pectoral ICD. No acute osseous abnormality is seen. Scattered radiopaque material is seen overlying the lower right chest which is favored to be outside of the thoracic cavity. IMPRESSION: 1. Cardiomegaly. No overt pulmonary edema. Dictated by: Dictated on workstation # [id number]
--- NOTE | 2021-03-26 11:27 | ED General ---
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 THIS TIME WELL. 1330--CALLED [facility] IN . THEY HAVE NO BEDS AVAILABLE AT ANY OF THEIR FACILITIES, INCLUDING [facility], [facility], [facility], [facility] 1349--CALLED [facility]--THEY HAVE NO BEDS IN ANY OF THEIR FACILITIES, AND NO BEDS AT [facility] IN [place]. 1457--CALLED [facility] IN [place].THEY WILL CALL BACK 1519--[facility] CALLED BACK--THEY HAVE NO BEDS AT ANY OF THEIR FACILITIES 1522--CALLED [facility] IN [place]--THEY HAVE NO BEDS AVAILABLE 1524--CALLED [facility] TRANSFER LINE--THEY HAVE NO BEDS AT ANY OF THEIR FACILITIES, INCLUDING [place] AND [place] 1525--CALLED [facility] IN [place]--THEY HAVE NO BEDS AVAILABLE 1526--CALLED DR. GUARDADO, HOSPITALIST HERE. HE STATES THAT PT REQUIRES HIGHER LEVEL OF CARE THAN WE CAN PROVIDE HERE, AND WILL NEED TO BE TRANSFERRED. 1532--CALLED [facility] IN [place]--NO BEDS AT ANY OF THEIR FACILITIES 1539--CALLED [facility] IN [place]--THEY HAVE NO BEDS AT ANY OF THEIR FACILITIES 1657--CALLED [facility] BACK. THEY ARE WAITING FOR CENSUS UPDATE--WILL HAVE THAT SOMETIME BETWEEN 1600 AND 1800. THEY WILL CALL US BACK 1755--SPOKE WITH [facility]. THEY STILL HAVE NO BEDS, AND CANNOT ACCEPT PT AT THIS TIME. 1745--SPOKE WITH PHARMACIST, AND DISCUSSED WITH HIM THE NEED FOR ANTIBIOTICS AND MEDICATIONS THAT THE PATIENT WILL NEED THROUGH THE NIGHT, HE WILL BE BOARDED IN ER UNTIL A BED BECOMES AVAILABLE AT ANOTHER FACILITY. ADDITIONAL DOSES OF VANCOMYCIN AND ZOSYN WILL BE MIXED. ALSO DISCUSSED THE RECOMMENDATION OF PROPHYLAXIS FOR NEISSERIA MENINGITIDIS AND HE ADVISES GIVING AND ADDITIONAL GRAM OF ROCEPHIN FOR A TOTAL OF 2 GRAM BOLUS. HE WILL ALSO MIX THIS AND SEND TO ER. WE DO NOT CARRY SOME OF PT'S HOME MEDICATIONS, INCLUDING MESTINON AND CELLC EPT--PT STATES HE WILL HAVE HIS BRING HIS HOME MEDICATIONS TO ER 1800--CARE TURNED OVER TO DR. ANDRE, INFORMED HIM OF ALL OF THE ABOVE (MARICARMEN HOUSER DO) Impression Primary Impression: Sepsis Qualified Codes: A41.9 - Sepsis, unspecified organism Additional Impressions: Infected venous access port Qualified Codes: T80.219A - Unspecified infection due to central venous c atheter, initial encounter Myasthenia gravis Chronic CHF Qualified Codes: I50.9 - Heart failure, unspecified IDDM (insulin dependent diabetes mellitus) HTN (hypertension) Qualified Codes: I10 - Essential (primary) hypertension Coronary artery disease Qualified Codes: I25.10 - Atherosclerotic heart disease of [place] coronary artery without angina pectoris Chronic pain Qualified Codes: G89.29 - Other chronic pain Elevated troponin Disposition: 02 XFER SHT-TRM HOSP Condition: Stable Transfer Transfer Reason: Exceeds level of care Time Spoke to Accepting Phy: 05:15 Transfer Progress Notes Transfer accepted by Dr. Garcia at [facility]. Transfer Time: 09:45 Transfer Facility: [facility] Method of Transfer: EMS (TRISHA ANDRE MD) Departure-Patient Inst. Referrals: NO,LOCAL PHYSICIAN (PCP/Family) Primary Care Physician MARICARMEN HOUSER DO Mar 26, 2021 11:27 TRISHA ANDRE MD Mar 26, 2021 21:59
[2021-03-26 11:28] LABS: TSH (THYROID ANALYZER) 0.93 UIU/ML (0.35-4.94)
[2021-03-26 12:03] LABS: BILIRUBIN,URINE NEGATIVE (NEGATIVE); CLARITY,URINE CLEAR; COLOR,URINE YELLOW; GLUCOSE, URINE (UA) NEGATIVE (NEGATIVE); KETONES,URINE NEGATIVE (NEGATIVE); LEUKOCYTE ESTERASE ,URINE NEGATIVE (NEGATIVE); NITRITE,URINE NEGATIVE (NEGATIVE); PH,URINE 5.5 (5-9); PROTEIN,URINE 1+ (NEGATIVE)
[2021-03-26 12:12] LABS: BACTERIA,URINE NEGATIVE /HPF; SQUAMOUS EPITHELIAL CELL,UR 0-2 /HPF
[2021-03-26 12:13] LABS: URINE OTHER FEW SPERM /HPF
[2021-03-26] MEDS ORDERED: VANCOMYCIN INJECTION 1,000 MG in NS (IVPB) 250 ML IV SCH (12:30)
[2021-03-26] MEDS ORDERED: PIPERACILLIN SODIUM/TAZOBACTAM 4.5 GM in NS (IVPB) 100 ML IV ONE (12:30)
[2021-03-26] MEDS ORDERED: VANCOMYCIN 1,750 MG/NS 500 ML IVPB IV NR ×2 (13:00)
[2021-03-26] MEDS ORDERED: morphine INJ 4 MG/ML 1 ML (VIAL/SYRINGE) IVP ONE (13:45)
[2021-03-26] MEDS ORDERED: morphine INJ 10 MG/ML 1ML (SYR OR VIAL) ONE (13:52)
[2021-03-26] MEDS ORDERED: HYDROmorphone (DILAUDID) 4 MG TAB PO ONE ×2 (15:15→22:00)
[2021-03-26] MEDS ORDERED: cefTRIAXone 1,000 MG in WATER (STERILE) FOR INJECTION 10 ML IV ONE (15:45)
[2021-03-26] MEDS ORDERED: SACUBITRIL/VALSARTAN 24/26 MG (ENTRESTO) TABLET PO ONE (18:00)
[2021-03-26] MEDS ORDERED: cefTRIAXone 1,000 MG/SWFI 10 ML IV PUSH IV NR ×2 (18:00)
[2021-03-26] MEDS ORDERED: ASPIRIN 81 MG CHEW (CHILDREN'S ASA) PO ONE (18:15)
--- NOTE | 2021-03-26 19:22 | Diagnostic Imaging Report ---
INDICATION: Chest pain COMPARISON: 03/26/2021 FINDINGS: Single view of the chest demonstrates stable cardiac enlargement. The lungs remain clear. There is no pneumothorax. Pacemaker stable. IMPRESSION: Stable cardiac enlargement without pulmonary edema or acute infiltrate. Dictated by: Dictated on workstation # [id number]
[2021-03-26 19:39] LABS: AMPHETAMINE SCREEN, URINE NEGATIVE (NEGATIVE); BARBITURATE SCREEN URINE NEGATIVE (NEGATIVE); BENZODIAZEPINES SCREEN URINE POSITIVE (NEGATIVE); CANNABINOID SCREEN, URINE NEGATIVE (NEGATIVE); COCAINE SCREEN URINE NEGATIVE (NEGATIVE); METHADONE STAT NEGATIVE (NEGATIVE); METHAMPHETAMINE SCREEN URINE S NEGATIVE (NEGATIVE); OPIATE SCREEN URINE NEGATIVE (NEGATIVE); OXYCODONE STAT NEGATIVE (NEGATIVE); PROPOXYPHENE STAT NEGATIVE (NEGATIVE); TRICYCLIC ANTIDEPRESSANTS SCRE NEGATIVE (NEGATIVE)
[2021-03-26] MEDS ORDERED: inSUlin ASPART (NovoLOG) 1 UNIT/0.01 ML (CHARGE PER UNIT) SC ONE (20:00)
[2021-03-26] MEDS: PIPERACILLIN/TAZO 4.5 GM/NS 100 ML IV SCH ×2 (20:12)
[2021-03-26] MEDS: PYRIDOSTIGMINE 60 MG TAB (MESTINON) NON-FORMULARY PO SCH (20:24)
[2021-03-26] MEDS ORDERED: NON-FORMULARY MEDICATION 1 EA EA PO SCH (21:00)
[2021-03-27] MEDS ORDERED: VANCOMYCIN 1500 MG/NS 500 ML IVPB IV NR ×2 (03:00)
[2021-03-27 03:32] LABS: BASOPHILS % (AUTO) 0 % (0-10); EOSINOPHILS % (AUTO) 0 % (0-10); HEMATOCRIT 36 % (40-54); HEMOGLOBIN 11.3 g/dL (13.3-17.7); LYMPHOCYTES # (AUTO) 0.7 10^3/uL (1.0-4.0); LYMPHOCYTES % (AUTO) 7 % (12-44); MEAN CORPUSCULAR HEMOGLOBIN 26 pg (25-34); MEAN CORPUSCULAR HGB CONC 31 g/dL (32-36); MEAN CORPUSCULAR VOLUME 82 fL (80-99); MEAN PLATELET VOLUME 10.1 fL (9.0-12.2); MONOCYTES # (AUTO) 0.3 10^3/uL (0.0-1.0); MONOCYTES % (AUTO) 3 % (0-12); NEUTROPHILS # (AUTO) 9.3 10^3/uL (1.8-7.8); NEUTROPHILS % (AUTO) 90 % (42-75); PLATELET COUNT 207 10^3/uL (130-400); WHITE BLOOD COUNT 10.3 10^3/uL (4.3-11.0)
[2021-03-27 03:44] LABS: POTASSIUM 4.9 MMOL/L (3.6-5.0)
[2021-03-27 03:45] LABS: CALCIUM 8.7 MG/DL (8.5-10.1)
[2021-03-27 03:49] LABS: CREATININE SERUM 1.39 MG/DL (0.60-1.30)
[2021-03-27 04:32] LABS: LYMPHOCYTES % (MANUAL) 7 %; METAMYELOCYTES % 1 %; MONOCYTES % (MANUAL) 1 %; NEUTROPHILS % (MANUAL) 91 %
[2021-03-27] MEDS ORDERED: HYDROmorphone (DILAUDID) 4 MG TAB PO ONE ×2 (04:45→09:30)
[2021-03-27] MEDS: PYRIDOSTIGMINE 60 MG TAB (MESTINON) NON-FORMULARY PO SCH (04:51)
[2021-03-27] MEDS ORDERED: ASPIRIN 81 MG CHEW (CHILDREN'S ASA) PO ONE (05:15)
[2021-03-27] MEDS: PIPERACILLIN/TAZO 4.5 GM/NS 100 ML IV SCH ×2 (05:24)
[2021-03-27] MEDS ORDERED: inSUlin ASPART (NovoLOG) 1 UNIT/0.01 ML (CHARGE PER UNIT) SC ONE (08:45)
[2021-03-27 09:45] VITALS: BP 131/66
== END 2021-03-27 09:45 | disposition short-term general hospital (02) ==
LOC: EDUNIT# 10:18 → ER 10:21
DX: A41.9 Sepsis, unspecified organism (principal); T82.7XXA Infection and inflammatory reaction due to other cardiac and vascular devices, implants and grafts, initial encounter; G70.00 Myasthenia gravis without (acute) exacerbation; I11.0 Hypertensive heart disease with heart failure; I50.9 Heart failure, unspecified; E11.9 Type 2 diabetes mellitus without complications; I25.10 Atherosclerotic heart disease of native coronary artery without angina pectoris; G89.29 Other chronic pain; R74.8 Abnormal levels of other serum enzymes; E66.9 Obesity, unspecified; E78.00 Pure hypercholesterolemia, unspecified; G47.30 Sleep apnea, unspecified; K21.9 Gastro-esophageal reflux disease without esophagitis; F41.9 Anxiety disorder, unspecified; Z68.32 Body mass index [BMI] 32.0-32.9, adult; Z20.822 Contact with and (suspected) exposure to COVID-19; Z95.5 Presence of coronary angioplasty implant and graft; Z95.9 Presence of cardiac and vascular implant and graft, unspecified; Z95.0 Presence of cardiac pacemaker; Z86.73 Personal history of transient ischemic attack (TIA), and cerebral infarction without residual deficits; Z79.4 Long term (current) use of insulin; Z79.82 Long term (current) use of aspirin; Z79.52 Long term (current) use of systemic steroids; Z79.899 Other long term (current) drug therapy
CPT/HCPCS: 36415; 71045; 80048; 80053; 80076; 80306; 81000; 82150; 82248; 82550; 82553; 82947; 83605; 83690; 83735; 83874; 83880; 84145; 84443; 84484; 85007; 85025; 85027; 85610; 85652; 85730; 86141; 87040; 87077; 87088; 87186; 87636; 93005; 93041; 96361; 96365; 96366; 96367; 96372; 96375; 96376; 99291

== ENCOUNTER 2021-04-10 08:10 | Outpatient (CLI) | payer MEDICARE, MEDICAID ==
[2021-04-10 08:30] VITALS: BP 112/60
[2021-04-10] MEDS ORDERED: ALTEPLASE 2 MG (CATHFLO) IV ONE ×2 (11:00)
[2021-04-10] MEDS ORDERED: WATER (STERILE) FOR INJECTION 10 ML ONE (12:00)
== END 2021-04-10 13:40 | disposition home or self-care (01) ==
LOC: SDC 08:10
PROVIDERS: ATTEND Nurse Practitioner Family
DX: I50.20 Unspecified systolic (congestive) heart failure (principal)
CPT/HCPCS: 76937

== ENCOUNTER 2021-04-21 12:44 | Inpatient (IN) | payer MEDICARE, MEDICAID ==
[~2021-04-21] VITALS: Ht 172.7 cm; Wt 100.8 kg
[2021-04-21 13:12] LABS: BASOPHILS % (AUTO) 0 % (0-10); EOSINOPHILS # (AUTO) 0.3 10^3/uL (0.0-0.3); EOSINOPHILS % (AUTO) 3 % (0-10); HEMATOCRIT 32 % (40-54); HEMOGLOBIN 10.1 g/dL (13.3-17.7); LYMPHOCYTES # (AUTO) 0.9 10^3/uL (1.0-4.0); LYMPHOCYTES % (AUTO) 7 % (12-44); MEAN CORPUSCULAR HEMOGLOBIN 27 pg (25-34); MEAN CORPUSCULAR HGB CONC 32 g/dL (32-36); MEAN CORPUSCULAR VOLUME 85 fL (80-99); MEAN PLATELET VOLUME 10.1 fL (9.0-12.2); MONOCYTES # (AUTO) 0.8 10^3/uL (0.0-1.0); MONOCYTES % (AUTO) 7 % (0-12); NEUTROPHILS # (AUTO) 10.2 10^3/uL (1.8-7.8); NEUTROPHILS % (AUTO) 83 % (42-75); PLATELET COUNT 235 10^3/uL (130-400); WHITE BLOOD COUNT 12.3 10^3/uL (4.3-11.0)
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
[2021-04-21] MEDS ORDERED: NS IV 500 ML 500 ML IV ONE (13:15)
[2021-04-21 13:29] LABS: EOSINOPHILS % (MANUAL) 3 %; LYMPHOCYTES % (MANUAL) 7 %; MONOCYTES % (MANUAL) 6 %; NEUTROPHILS % (MANUAL) 84 %; RBC MORPH NORMAL
[2021-04-21 13:30] LABS: BILIRUBIN,TOTAL 0.5 MG/DL (0.1-1.0); CALCIUM 9.1 MG/DL (8.5-10.1); CREATININE SERUM 1.74 MG/DL (0.60-1.30); POTASSIUM 4.3 MMOL/L (3.6-5.0); TOTAL PROTEIN 6.9 GM/DL (6.4-8.2)
[2021-04-21 13:33] LABS: FIBRIN DEGRADATION PRODUCTS 0.55 UG/ML (0.00-0.49); INR 1.1 (0.8-1.4); PROTHROMBIN TIME PATIENT 14.3 SEC (12.2-14.7)
--- NOTE | 2021-04-21 14:28 | Diagnostic Imaging Report ---
Clinical indications: Patient with sepsis. Patient complains of shortness of air at rest and minimal exertion. Exam: Portable chest x-ray upright view. Comparisons: Chest x-ray dated 03/26/2021. Findings: There is interval placement of Port-A-Cath with central line overlying right chest. Both are seen near the distal superior vena cava region, but are partially obscured by the wires. Lungs/pleura: There is interval development of patchy airspace opacities involving the right lung and left lung base region concerning for infiltrates. There is no pneumothorax. There is no pleural effusion. Mediastinum: Unremarkable. Pulmonary vasculature: Unremarkable. Heart: Cardiomegaly is again seen. Cardiac pacemaker/AICD is again seen overlying left chest. Bones/extrathoracic soft tissue: There are degenerative spurs involving the spine. Impression: 1: There is interval development of patchy lung infiltrates involving the right lung and left lung base concerning for pneumonia. 2: Interval placement of central lines overlying the right chest. There is no pneumothorax. Dictated by: Dictated on workstation # [id number]
[2021-04-21 14:35] LABS: BILIRUBIN,URINE NEGATIVE (NEGATIVE); CLARITY,URINE CLEAR; COLOR,URINE YELLOW; GLUCOSE, URINE (UA) NEGATIVE (NEGATIVE); KETONES,URINE NEGATIVE (NEGATIVE); LEUKOCYTE ESTERASE ,URINE NEGATIVE (NEGATIVE); NITRITE,URINE NEGATIVE (NEGATIVE); PROTEIN,URINE NEGATIVE (NEGATIVE)
[2021-04-21 14:46] LABS: BACTERIA,URINE TRACE /HPF; SQUAMOUS EPITHELIAL CELL,UR 0-2 /HPF; WBC,URINE RARE /HPF
[2021-04-21] MEDS ORDERED: PIPERACILLIN SODIUM/TAZOBACTAM 4.5 GM in NS (IVPB) 100 ML IV ONE (15:30)
[2021-04-21] MEDS ORDERED: HYDROCORTISONE 100 MG/2 ML (Solu-CORTEF) VIAL IV ONE (15:30)
--- NOTE | 2021-04-21 15:32 | History & Physical-Hospitalist ---
History of Present Illness HPI/Chief Complaint Pt is a 65yoCM with a PMH of myathenis gravis, a -fib, CHF on milrinone gtt, CKD, who presented to the ER due to fver and shortness of breath. He was just discharged from [facility] after being there for roughly 1 month. A few days ago he developed fever, fatigue, and shortness of breath. He has received both of his COVID vaccines. He was found to have pneumonia on imaging in the Er and is being admitted for sepsis. I actually recommended transfer back to give his significant medical problems but patient declines. We discussed in the presence of his and Dr Maya the potential implications of this (including should he worsen and we not be able to secure transfer). He stated understanding of these risks and still requested admission here so that his can visit. He was discharged from on bactrim for possible PICC line infection and has been compliant with this. He Source: patient Exam Limitations: no limitations Date Seen 04/21/21 Time Seen by a Provider: 15:25 Attending Physician PCP No,Local Physician Referring Physician Date of Admission Home Medications & Allergies Home Medications Reviewed patient Home Medication Reconciliation performed by pharmacy medication reconciliations library acquisitions technician and/or nursing. Patients Allergies have been reviewed. Allergies Allergies Coded Allergies albumin colloid, human (Verified Allergy, Unknown, 12/15/20) carvedilol (Unverified Allergy, Unknown, 01/22/10) codeine (Unverified Allergy, Unknown, PATIENT HAS RECEIVED MORPHINE WITHOUT ISSUE, 06/08/15) trazodone (Verified Allergy, Unknown, 12/15/20) Past Uimoitj-Cgyhko-Yspvkx Hx Patient Social History Marrital Status: Tobacco Use?: No Use of E-Cig and/or Vaping dev: No Substance use?: No Alcohol Use?: No Immunizations Up To Date Date of Influenza Vaccine: Jul 18, 2020 Second COVID19 Vaccination Delvis: 01/25 Tetanus Booster (TDap): Less Than 5 Years Hepatitis A: No Hepatitis B: No PED Vaccines UTD: Yes Date of Pneumonia Vaccine: Apr 14, 2017 Seasonal Allergies Seasonal Allergies: No Current Status Advance Directives: No Primary Language: Divehi Preferred Spoken Language: Divehi Implanted or Applied Medical D: Implantable cardioverter, Pacemaker Past Medical History Surgeries: Cardiac, Coronary Stent, Ear Surgery, Orthopedic, Pacemaker Pneumonia, Sleep Apnea Currently Using CPAP: No Currently Using BIPAP: No Cardiomyopathy, Coronary Artery Disease, High Cholesterol, Hypertension, Peripheral Vascular TIA Gastroesophageal Reflux, Ulcer Arthritis, Gout Diabetes, Insulin dep, Lupus Dysphagia, Chronic Ear Infection Loss of Vision: Denies Hearing Impairment: Hard of Hearing Sleep Difficulties, Anxiety Blood Disorders: No Adverse Reaction/Blood Tranf: No Diastolic dysfunction with EF of 50-55%, per echo 07/2019 but [facility] 11/30/20 Myasthenia gravis 15% EF 25% Multiple stents [place] Neuropathy Esophageal Ulcers Arthritis Diabetes Mellitus, insulin dependent Anxiety CAD inoperable awaiting heart transplant Family Medical History Reviewed Nursing Family Hx Alcoholism 19 FATHER Cancer 19 FATHER 19 MOTHER Chest pain 19 MOTHER Family history: Arthritis (grandmother) G8 SISTER Family history: Cardiovascular disease 19 MOTHER Family history: Diabetes mellitus G8 SISTER Family history: Hypertension 19 FATHER 19 MOTHER Hearing loss 19 FATHER Heart disease 19 MOTHER Malignant neoplasm of lung 19 MOTHER Myocardial infarction 19 MOTHER Stroke 19 FATHER No Pertinent Family Hx, Heart Disease, Cancer, Diabetes, Stroke Review of Systems Constitutional: diaphoresis, fever, malaise EENTM: no symptoms reported Respiratory: short of breath Cardiovascular: see HPI Gastrointestinal: No abdominal pain, No constipation, No nausea, No vomiting Genitourinary: no symptoms reported Musculoskeletal: muscle weakness Skin: no symptoms reported Psychiatric/Neurological: No Symptoms Reported Physical Exam Physical Exam Vital Signs Vital Signs - First Documented 04/21/21 12:50 Temp 38.2 Pulse 119 Resp 28 B/P (MAP) 131/71 (91) Pulse Ox 94 O2 Delivery Nasal Cannula O2 Flow Rate 4.00 Capillary Refill : Less Than 3 Seconds Height, Weight, BMI Height: 5'8.00" Weight: 205lbs. 0.0oz. 92.284855pg; 32.00 BMI Method:Stated General Appearance: No Apparent Distress, Chronically ill, Obese HEENT: PERRL/EOMI, Moist Mucous Membranes; No Scleral Icterus (L), No Scleral Icterus (R) Neck: Normal Inspection, Supple Respiratory: No Accessory Muscle Use, Decreased Breath Sounds; No Wheezing Cardiovascular: No Murmur, Tachycardia Gastrointestinal: Normal Bowel Sounds, Non Tender, Soft, Other (bruise on lower abdomen) Extremity: Normal Capillary Refill, No Calf Tenderness, No Pedal Edema Neurologic/Psychiatric: Alert, Oriented x3, Normal Mood/Affect; No Aphasia Results Results/Procedures Labs Laboratory Tests 04/21/21 13:00 Patient resulted labs reviewed. Imaging: Reviewed Imaging Report Imaging [facility] [place], [place] NAME: [facility] REC#: [id number] PT STATUS: REG ER : 1955 PHYSICIAN: KEI MAYA MD ADMIT DATE: 04/21/21/ER Draft Date of Exam:04/21/21 CHEST 1 VIEW, AP/PA ONLY Clinical indications: Patient with sepsis. Patient complains of shortness of air at rest and minimal exertion. Exam: Portable chest x-ray upright view. Comparisons: Chest x-ray dated 03/26/2021. Findings: There is interval placement of Port-A-Cath with central line overlying right chest. Both are seen near the distal superior vena cava region, but are partially obscured by the wires. Lungs/pleura: There is interval development of patchy airspace opacities involving the right lung and left lung base region concerning for infiltrates. There is no pneumothorax. There is no pleural effusion. Mediastinum: Unremarkable. Pulmonary vasculature: Unremarkable. Heart: Cardiomegaly is again seen. Cardiac pacemaker/AICD is again seen overlying left chest. Bones/extrathoracic soft tissue: There are degenerative spurs involving the spine. Impression: 1: There is interval development of patchy lung infiltrates involving the right lung and left lung base concerning for pneumonia. 2: Interval placement of central lines overlying the right chest. There is no pneumothorax. Dictated on workstation # [id number] Dict: 04/21/21 1422 Trans: 04/21/21 1428 [facility] [phone] Interpreted by: SACHI JUAREZ MD Electronically signed by: Assessment/Plan Admission Diagnosis Sepsis due to pneumonia Admission Status: Inpatient Order (span 2 midnights) Reason for Inpatient Admission: see below Assessment and Plan Sepsis due to pneumonia Will cover for HCAP with Vanc and Zosyn ON 4lpm of oxygen, doing well MAT protocol CHF with EF of 10% A-fib HTN HLD ON milrinone gtt Cardiology consulted, appreciate recs Patient reports gtt should be good until Thursday- will bring in medications MIld troponin elevation- near where it always is Myathenis gravis to bring in home meds PT/OT CKD Stage 3 Hovering baseline around 1.5 but appears to be neat it today, trend Cautious IVF DMII SSI Bs 117 LYNNETTE GEORGE MD Apr 21, 2021 15:32
[2021-04-21] MEDS ORDERED: PATIENT MAY USE OWN MEDS, ALL MC SCH (15:45)
[2021-04-21] MEDS ORDERED: VANCOMYCIN INJECTION 0.1 MG in NS (IVPB) 250 ML IV SCH (15:45)
--- NOTE | 2021-04-21 15:45 | Tele-ICU Consult ---
History of Present Illness History of Present Illness Date Seen by Provider: Apr 21, 2021 Time Seen by Provider: 15:39 Date of Admission 65 y old man with hx of Myastenia gravis, chf on Milrinone drip, recently dc from [facility] after 1month long hospital stay. Pt presented to ED with cc of fever, low grade fever 100.1. Cxray revealed interstitial infiltrates with negative ua; pt was COVID Moderna vaccinated and its COVID -. Sepsis protocol and empiric abx were started. Allergies and Home Medications Allergies Coded Allergies: albumin colloid, human (Verified Allergy, Unknown, 12/15/20) carvedilol (Unverified Allergy, Unknown, 01/22/10) codeine (Unverified Allergy, Unknown, PATIENT HAS RECEIVED MORPHINE WITHOUT ISSUE, 06/08/15) trazodone (Verified Allergy, Unknown, 12/15/20) Home Medications Aspirin 81 Mg Tab.chew, 81 MG PO DAILY, (Reported) Atorvastatin Calcium 80 Mg Tablet, 80 MG PO HS, (Reported) Celecoxib 100 Mg Capsule, 100 MG PO DAILY, (Reported) Cholecalciferol (Vitamin D3) 25 Mcg Capsule, 25 MCG PO BID, (Reported) Duloxetine HCl 30 Mg Capsule.dr, 30 MG PO DAILY, (Reported) Eculizumab 300 Mg/30 Ml Vial, 1,200 MG IV EVERY 2 WEEKS, (Reported) INFUSE OVER 35 MINUTES NEXT INSFUSION DUE 01-08-2021 Febuxostat 40 Mg Tablet, 40 MG PO DAILY, (Reported) Furosemide 40 Mg Tablet, 40 MG PO DAILY, (Reported) Gabapentin 600 Mg Tablet, 600 MG PO HS PRN for PAIN-BREAKTHROUGH, (Reported) Hydromorphone HCl 2 Mg Tablet, 2-4 MG PO Q6H PRN for PAIN-SEVERE (8-10), (Reported) Immune Glob,Adriano Caprylate(IgG) 40 Gm/400 Ml Vial, 50 GM IJ EVERY 3 WEEKS, (Reported) 50 GM FOR 2 DAYS NEXT INFUSION STARTS 01-10-2021 Insulin Aspart 300 Units/3 Ml Solution, 32 UNITS SQ AC, (Reported) Insulin Glargine,Hum.rec.anlog 100 Unit/1 Ml Insuln.pen, 27 UNITS SC BID, (Reported) Isosorbide Mononitrate 60 Mg Tab, 60 MG PO HS, (Reported) TAKES 2 (30MG) TABS Metoprolol Succinate 50 Mg Tab.er.24h, 50 MG PO DAILY, (Reported) Milrinone Lactate/D5w 20 Mg/100 Ml Piggyback, 20 MG IV UD, (Reported) 24.375MCG/MIN Mycophenolate Mofetil 500 Mg Tablet, 1,000 MG PO BID, (Reported) [place]-3 Fatty Acids/Fish Oil 1 Each Capsule, 1 EACH PO HS, (Reported) Pantoprazole Sodium 40 Mg Tablet.dr, 40 MG PO BID, (Reported) Penicillin V Potassium 500 Mg Tablet, 500 MG PO BID, (Reported) Prednisone 5 Mg Tablet, 15 MG PO DAILY, (Reported) TAKES 3 (5MG) TABS Pyridostigmine [place] 60 Mg Tab, 60 MG PO TID, (Reported) Sacubitril/Valsartan 1 Each Tablet, 1 EA PO BID, (Reported) Spironolactone 25 Mg Tablet, 25 MG PO DAILY, (Reported) Past Medical/Social/Family Hx Patient Social History Employed/Student: unemployed Tobacco Use?: No Use of E-Cig and/or Vaping dev: No Substance use?: No Alcohol Use?: No Immunizations Up To Date Influenza Vaccine Up-to-Date: No; Not Current Second COVID19 Vaccination Delvis: 01/25 Tetanus Booster (TDap): Less Than 5 Years Hepatitis A: No Hepatitis B: No TB Skin Test: Negative Date of Pneumonia Vaccine: Apr 14, 2017 Current Status Advance Directives: No Primary Language: Bulgarian Preferred Spoken Language: Bulgarian Implanted or Applied Medical D: Implantable cardioverter, Pacemaker Past Medical History Diastolic dysfunction with EF of 50-55%, per echo 07/2019 but [facility] 11/30/20 Myasthenia gravis 15% EF 25% Multiple stents [place] Neuropathy Esophageal Ulcers Arthritis Diabetes Mellitus, insulin dependent Anxiety CAD inoperable awaiting heart transplant Review of Systems Constitutional: fever, malaise, weakness Sepsis Event Evaluation Sepsis Stage: Sepsis Possible Source: Pulmonary Height, Weight, BMI Height: 5'8.00" Weight: 205lbs. 0.0oz. 92.107285gl; 32.00 BMI Method:Stated Bedside Monitoring Passive Leg Raise/Fluid Bolus: Fluid Responsive Exam Exam Patient acknowledged, consented, and participated in this virtual visit which was conducted using real time audio/video Vital Signs Date Time Temp Pulse Resp B/P (MAP) Pulse Ox O2 Delivery O2 Flow Rate FiO2 04/21/21 12:50 38.2 119 28 131/71 (91) 94 Nasal Cannula 4.00 Height & Weight Height: 5'8.00" Weight: 205lbs. 0.0oz. 92.580915oy; 32.00 BMI Method:Stated General Appearance: No Apparent Distress HEENT: PERRL/EOMI, Pharynx Normal Neck: Non Tender, Supple Respiratory: Lungs Clear, Normal Breath Sounds Cardiovascular: No Murmur, Tachycardia Capillary Refill: Less Than 3 Seconds Extremity: Normal Range of Motion, Non Tender, No Pedal Edema Neurologic/Psychiatric: Alert, Oriented x3 Results Lab Laboratory Tests 04/21/21 13:00 Assessment/Plan Assessment/Plan Sepsis unclear source of infection: lungs vs bacteremia -monitor hemodynamics -empiric abx -pending cultures CHF on milrinone drip IMANI monitor urine outout and creat cl dvt prophylaxis notes/ labs/ diagnostics were reviewed; note will be completed once pt is in the room JUAN A VILLAFANA MD Apr 21, 2021 15:45
[2021-04-21] MEDS: VANCOMYCIN INJECTION 1,000 MG in NS (IVPB) 250 ML IV SCH ×2 (16:11→17:33)
--- NOTE | 2021-04-21 16:23 | Consultation-Cardiology ---
HPI-Cardiology Cardiology Consultation: Date of Consultation 04/21/2021 Date of Admission 04/21/2021 Attending Physician Анна Faye MD Admitting Physician No,Local Physician Consulting Physician IDRIS BA JR, MD HPI: Time Seen by a Provider: 16:19 Chief Complaint: Reason for consultation: Chronic heart failure with reduced ejection fraction. I had the pleasure of seeing Mickey in the emergency room at [facility] this afternoon. He has a history of severe cardiomyopathy with chronic systolic heart failure presently on a continuous milrinone infu juany. He follows with the advanced heart failure team at [facility]. He was actually just discharged from that facility last week after a prolonged stay related to heart failure and his myasthenia gravis. When he went home on Thursday, he states he was feeling pretty well. However, this morning when he woke up, he felt terribly ill. He did not seek immediate medical attention. He felt like he had a fever. He was more short of breath. He got out of bed and slept in his recliner for several hours. When he woke up, he called his visiting nurse who recommended that he come to the hospital for further evaluation. In the emergency room he was diagnosed with pneumonia. Because of his cardiac history, a cardiology consultation was requested. He denies any chest discomfort. He has had cough productive of some yellowish sputum. He denies paroxysmal nocturnal dyspnea, orthopnea, palpitations, lightheadedness, or syncope. He denies any change in his chronic, mild lower extremity edema. He wishes to be a full code with no limitations. Certain portions of this document may have been dictated utilizing voice r ecognition technology. Inherent to this technology, typographical and grammatical errors may exist. As much as I am diligent to identify and correct these mistakes, some errors may remain in the document. Review of Systems-Cardiology Review of Systems Other comments Review of 10 organ systems is as per the history of present illness, otherwise negative. All Other Systems Reviewed Negative Unless Noted: Yes [id number] Hx Patient Social History Marrital Status: Employed/Student: unemployed 2nd Hand Smoke Exposure: No Have you traveled recently?: No Alcohol Use?: No Immunizations Up To Date Tetanus Booster (TDap): More than 5yrs Date of Pneumonia Vaccine: Apr 14, 2017 Date of Influenza Vaccine: Jul 18, 2020 Past Medical History PMH As described under Assessment. Family Medical History Family Medical History: He reports his mother had CAD and HTN. He reports his father had HTN and a CVA. Family History: Alcoholism 19 FATHER Cancer 19 FATHER 19 MOTHER Chest pain 19 MOTHER Family history: Arthritis (grandmother) G8 SISTER Family history: Cardiovascular disease 19 MOTHER Family history: Diabetes mellitus G8 SISTER Family history: Hypertension 19 FATHER 19 MOTHER Hearing loss 19 FATHER Heart disease 19 MOTHER Malignant neoplasm of lung 19 MOTHER Myocardial infarction 19 MOTHER Stroke 19 FATHER Allergies and Home Medications Allergies Coded Allergies: albumin colloid, human (Verified Allergy, Unknown, 12/15/20) carvedilol (Unverified Allergy, Unknown, 01/22/10) codeine (Unverified Allergy, Unknown, PATIENT HAS RECEIVED MORPHINE WITHOUT ISSUE, 06/08/15) trazodone (Verified Allergy, Unknown, 12/15/20) Home Medications Aspirin 81 Mg Tab.chew, 81 MG PO DAILY, (Reported) Atorvastatin Calcium 80 Mg Tablet, 80 MG PO HS, (Reported) Celecoxib 100 Mg Capsule, 100 MG PO DAILY, (Reported) Cholecalciferol (Vitamin D3) 25 Mcg Capsule, 25 MCG PO BID, (Reported) Duloxetine HCl 30 Mg Capsule.dr, 30 MG PO DAILY, (Reported) Eculizumab 300 Mg/30 Ml Vial, 1,200 MG IV EVERY 2 WEEKS, (Reported) INFUSE OVER 35 MINUTES NEXT INSFUSION DUE 01-08-2021 Febuxostat 40 Mg Tablet, 40 MG PO DAILY, (Reported) Furosemide 40 Mg Tablet, 40 MG PO DAILY, (Reported) Gabapentin 600 Mg Tablet, 600 MG PO HS PRN for PAIN-BREAKTHROUGH, (Reported) Hydromorphone HCl 2 Mg Tablet, 2-4 MG PO Q6H PRN for PAIN-SEVERE (8-10), (Reported) Immune Glob,Adriano Caprylate(IgG) 40 Gm/400 Ml Vial, 50 GM IJ EVERY 3 WEEKS, (Reported) 50 GM FOR 2 DAYS NEXT INFUSION STARTS 01-10-2021 Insulin Aspart 300 Units/3 Ml Solution, 32 UNITS SQ AC, (Reported) Insulin Glargine,Hum.rec.anlog 100 Unit/1 Ml Insuln.pen, 27 UNITS SC BID, (Reported) Isosorbide Mononitrate 60 Mg Tab, 60 MG PO HS, (Reported) TAKES 2 (30MG) TABS Metoprolol Succinate 50 Mg Tab.er.24h, 50 MG PO DAILY, (Reported) Milrinone Lactate/D5w 20 Mg/100 Ml Piggyback, 20 MG IV UD, (Reported) 24.375MCG/MIN Mycophenolate Mofetil 500 Mg Tablet, 1,000 MG PO BID, (Reported) [place]-3 Fatty Acids/Fish Oil 1 Each Capsule, 1 EACH PO HS, (Reported) Pantoprazole Sodium 40 Mg Tablet.dr, 40 MG PO BID, (Reported) Penicillin V Potassium 500 Mg Tablet, 500 MG PO BID, (Reported) Prednisone 5 Mg Tablet, 15 MG PO DAILY, (Reported) TAKES 3 (5MG) TABS Pyridostigmine [place] 60 Mg Tab, 60 MG PO TID, (Reported) Sacubitril/Valsartan 1 Each Tablet, 1 EA PO BID, (Reported) Spironolactone 25 Mg Tablet, 25 MG PO DAILY, (Reported) Patient Home Medication List Home Medication List Reviewed: Yes Exam Vital Signs Vital Signs Date Time Temp Pulse Resp B/P (MAP) Pulse Ox O2 Delivery O2 Flow Rate FiO2 04/21/21 12:50 38.2 119 28 131/71 (91) 94 Nasal Cannula 4.00 Physical Exam General: Alert. Mild distress. Well nourished and appears stated age. Eye: Extraocular movements are intact. Conjunctivae are clear. There are no xanthelasma. HENT: Normocephalic. Atraumatic. Carotid pulsations 2/2 without bruits. Neck: Jugular venous pressure does not appear elevated. No thyromegaly appreciated. Respiratory: Lungs have some scattered coarse breath sounds. Respirations are mildly labored. Breath sounds are equal. Symmetrical chest wall expansion. Cardiovascular: Tachycardia with regular rhythm. No murmur. No gallop. Point of maximal impulse is not appear displaced. Good pulses equal in all extremities. Trace bilateral pretibial edema. Gastrointestinal: Soft. Normal bowel sounds. Skin: Skin turgor is normal. There is no pallor. Musculoskeletal: No kyphosis or scoliosis appreciated. Neurologic: Alert and oriented to person, place, time. Cranial nerves 3-12 appear grossly intact. The patient has good motor tone strength in the upper and lower extremities bilaterally. Psychiatric: Cooperative. Appropriate mood & affect. Labs Laboratory Tests Test 04/21/21 12:55 04/21/21 13:00 04/21/21 14:24 Range/Units Influenza Type A (RT-PCR) Not Detected Not Detecte Influenza Type B (RT-PCR) Not Detected Not Detecte SARS-CoV-2 RNA (RT-PCR) Not Detected Not Detecte White Blood Count 12.3 H 4.3-11.0 10^3/uL Red Blood Count 3.74 L 4.30-5.52 10^6/uL Hemoglobin 10.1 L 13.3-17.7 g/dL Hematocrit 32 L 40-54 % Mean Corpuscular Volume 85 80-99 fL Mean Corpuscular Hemoglobin 27 25-34 pg Mean Corpuscular Hemoglobin Concent 32 32-36 g/dL Red Cell Distribution Width 17.0 H 10.0-14.5 % Platelet Count 235 130-400 10^3/uL Mean Platelet Volume 10.1 9.0-12.2 fL Immature Granulocyte % (Auto) 1 % Neutrophils (%) (Auto) 83 H 42-75 % Lymphocytes (%) (Auto) 7 L 12-44 % Monocytes (%) (Auto) 7 0-12 % Eosinophils (%) (Auto) 3 0-10 % Basophils (%) (Auto) 0 0-10 % Neutrophils # (Auto) 10.2 H 1.8-7.8 10^3/uL Lymphocytes # (Auto) 0.9 L 1.0-4.0 10^3/uL Monocytes # (Auto) 0.8 0.0-1.0 10^3/uL Eosinophils # (Auto) 0.3 0.0-0.3 10^3/uL Basophils # (Auto) 0.0 0.0-0.1 10^3/uL Immature Granulocyte # (Auto) 0.1 0.0-0.1 10^3/uL Neutrophils % (Manual) 84 % Lymphocytes % (Manual) 7 % Monocytes % (Manual) 6 % Eosinophils % (Manual) 3 % Blood Morphology Comment NORMAL Prothrombin Time 14.3 12.2-14.7 SEC INR Comment 1.1 0.8-1.4 Activated Partial Thromboplast Time 33 24-35 SEC D-Dimer 0.55 H 0.00-0.49 UG/ML Sodium Level 135 135-145 MMOL/L Potassium Level 4.3 3.6-5.0 MMOL/L Chloride Level 105 98-107 MMOL/L Carbon Dioxide Level 20 L 21-32 MMOL/L Anion Gap 10 5-14 MMOL/L Blood Urea Nitrogen 27 H 7-18 MG/DL Creatinine 1.74 H 0.60-1.30 MG/DL Estimat Glomerular Filtration Rate 40 BUN/Creatinine Ratio 16 Glucose Level 117 H 70-105 MG/DL Lactic Acid Level 1.34 0.50-2.00 MMOL/L Calcium Level 9.1 8.5-10.1 MG/DL Corrected Calcium 9.1 8.5-10.1 MG/DL Total Bilirubin 0.5 0.1-1.0 MG/DL Aspartate Amino Transf (AST/SGOT) 16 5-34 U/L Alanine Aminotransferase (ALT/SGPT) 17 0-55 U/L Alkaline Phosphatase 25 L 40-136 U/L Troponin I 0.120 H <0.028 NG/ML C-Reactive Protein High Sensitivity 5.04 H 0.00-0.50 MG/DL B-Type Natriuretic Peptide 917.2 H <100.0 PG/ML Total Protein 6.9 6.4-8.2 GM/DL Albumin 4.0 3.2-4.5 GM/DL Procalcitonin 0.11 H <0.10 NG/ML Urine Color YELLOW Urine Clarity CLEAR Urine pH 6.0 5-9 Urine Specific [place] 1.025 H 1.016-1.022 Urine Protein NEGATIVE NEGATIVE Urine Glucose (UA) NEGATIVE NEGATIVE Urine Ketones NEGATIVE NEGATIVE Urine Nitrite NEGATIVE NEGATIVE Urine Bilirubin NEGATIVE NEGATIVE Urine Urobilinogen 0.2 < = 1.0 MG/DL Urine Leukocyte Esterase NEGATIVE NEGATIVE Urine RBC (Auto) NEGATIVE NEGATIVE Urine RBC NONE /HPF Urine WBC RARE /HPF Urine Squamous Epithelial Cells 0-2 /HPF Urine Crystals NONE /LPF Urine Bacteria TRACE /HPF Urine Casts NONE /LPF Urine Mucus SMALL H /LPF Urine Culture Indicated NO ECG Impression ECG Comment Sinus rhythm with frequent premature supraventricular complexes, a ventricular couplet, left atrial abnormality, nonspecific intraventricular conduction delay and borderline ST elevation V1-V2. This does not meet criteria for a STEMI. Diagnosis/Problems Diagnosis/Problems (1) Chronic systolic (congestive) heart failure Assessment & Plan: His chest x-ray primary shows pulmonary infiltrates with out clear-cut evidence of heart failure. He is on a milrinone infusion. He tells me his most recent ejection fraction was less than 25%. I recommend continuing the milrinone infusion. I would cautiously resume his outpatient guideline directed medical therapy. However, I would be cautious with this given his pneumonia which could lead to septic shock. He has not been on spironolactone due to recurrent hyperkalemia. (2) Cardiomyopathy Assessment & Plan: He has severe left ventricular systolic dysfunction. He had been on metoprolol succinate and Entresto at home along with the milrinone infusion. I recommend continuing the milrinone infusion at this time. I would be cautious about resuming metoprolol and Entresto until we see how his hemodynamics do with the superimposed pneumonia. I should also note, he has a prophylactic defibrillator in place. (3) Coronary artery disease without angina pectoris Assessment & Plan: He is not having any angina at this point in time. I suspect the elevated troponin level is a probable type II non-ST elevation myocardial infarction related to his pneumonia on top of chronic heart failure. I recommend resuming aspirin and statin medication. I would hold off on resuming metoprolol at this time. (4) Primary hypertension Assessment & Plan: As above, given his pneumonia, I would hold off on resuming his outpatient antihypertensive and heart failure medications at this point in time. (5) Mixed hyperlipidemia Assessment & Plan: Continue statin medication. (6) Cardiac defibrillator in situ Assessment & Plan: As noted in the HPI, he wishes to be a full code. As such, we will leave the defibrillator fully operational. (7) Acute kidney injury superimposed on chronic kidney disease Assessment & Plan: He may need some gentle hydration in light of the pneumonia. I would hold off on resuming Entresto at this time. (8) Chronic kidney disease, stage 3 Assessment & Plan: As above. IDRIS BA JR, MD Apr 21, 2021 16:23
[2021-04-21 16:31] VITALS: BP 131/71
[2021-04-21] MEDS ORDERED: VANCOMYCIN 1 GM/NS 250 ML IVPB IV NR ×2 (17:00)
[2021-04-21] MEDS ORDERED: RANO10005 PO (17:22)
[2021-04-21 17:29] VITALS: BP 161/99
[2021-04-21] MEDS ORDERED: MILRINONE LACTATE IV SCH (17:30)
[2021-04-21] MEDS ORDERED: [UNRECOGNIZED DRUG - OTHER] IV SCH (17:30)
[2021-04-21] MEDS ORDERED: GABAPENTIN 600 MG (NEURONTIN) TAB PO PRN (17:30)
[2021-04-21] MEDS ORDERED: D5W IV SCH (17:30)
[2021-04-21] MEDS: HYDROmorphone (DILAUDID) 2 MG TAB PO PRN (17:54)
[2021-04-21] MEDS: inSUlin ASPART (NovoLOG) 1 UNIT/0.01 ML (CHARGE PER UNIT) SC SCH (20:22)
[2021-04-21] MEDS ORDERED: NON-FORMULARY MEDICATION 1 EA EA (Ranolazine (Ranolazine ER) 1,000 MG) PO SCH (21:00)
[2021-04-21] MEDS ORDERED: PENICILLIN V POTASSIUM 500 MG PO SCH (21:00)
[2021-04-21] MEDS ORDERED: NON-FORMULARY MEDICATION 1 EA EA (Cholecalciferol (Vitamin D3) (Vitamin D3) 25 MCG) PO SCH (21:00)
[2021-04-21] MEDS: RT-ALBUTEROL/IPRATROPIUM 3 ML (DUONEB) VIAL INH SCH (21:00)
[2021-04-21] MEDS ORDERED: SACUBITRIL/VALSARTAN 24/26 MG (ENTRESTO) TABLET PO ONE (21:30)
[2021-04-21] MEDS ORDERED: ISOSORBIDE MONONITRATE 60 MG (IMDUR) TAB PO ONE (21:30)
[2021-04-21] MEDS ORDERED: RANOLAZINE ER 500 MG TAB (RANEXA) PO ONE (21:30)
[2021-04-21] MEDS ORDERED: PANTOPRAZOLE 40 MG (PROTONIX) TAB PO ONE (21:30)
[2021-04-21] MEDS: HYDROCORTISONE 100 MG/2 ML (Solu-CORTEF) VIAL IV SCH (22:09)
[2021-04-21] MEDS: PIPERACILLIN/TAZOBACTAM (BULK) 4.5 GM in NS (IVPB) 100 ML IV SCH (22:09)
[2021-04-21] MEDS: PYRIDOSTIGMINE 60 MG TAB (MESTINON) NON-FORMULARY PO SCH (22:10)
[2021-04-21] MEDS: SACUBITRIL/VALSARTAN 24/26 MG (ENTRESTO) TABLET PO SCH (22:10)
[2021-04-21] MEDS: ISOSORBIDE MONONITRATE 60 MG (IMDUR) TAB PO SCH (22:10)
[2021-04-21] MEDS: PANTOPRAZOLE 40 MG (PROTONIX) TAB PO SCH (22:11)
[2021-04-22] MEDS: HYDROmorphone (DILAUDID) 2 MG TAB PO PRN ×4 (01:11→20:34)
[2021-04-22] MEDS: RT-ALBUTEROL/IPRATROPIUM 3 ML (DUONEB) VIAL INH SCH ×4 (02:35→20:10)
[2021-04-22] MEDS: PIPERACILLIN/TAZOBACTAM (BULK) 4.5 GM in NS (IVPB) 100 ML IV SCH ×3 (05:00→21:13)
[2021-04-22] MEDS: HYDROCORTISONE 100 MG/2 ML (Solu-CORTEF) VIAL IV SCH ×3 (05:00→21:13)
[2021-04-22 05:14] LABS: BASOPHILS % (AUTO) 0 % (0-10); EOSINOPHILS % (AUTO) 0 % (0-10); HEMATOCRIT 30 % (40-54); HEMOGLOBIN 9.2 g/dL (13.3-17.7); LYMPHOCYTES # (AUTO) 0.5 10^3/uL (1.0-4.0); LYMPHOCYTES % (AUTO) 5 % (12-44); MEAN CORPUSCULAR HEMOGLOBIN 27 pg (25-34); MEAN CORPUSCULAR HGB CONC 31 g/dL (32-36); MEAN CORPUSCULAR VOLUME 86 fL (80-99); MEAN PLATELET VOLUME 9.7 fL (9.0-12.2); MONOCYTES # (AUTO) 0.3 10^3/uL (0.0-1.0); MONOCYTES % (AUTO) 3 % (0-12); NEUTROPHILS # (AUTO) 9.8 10^3/uL (1.8-7.8); NEUTROPHILS % (AUTO) 91 % (42-75); PLATELET COUNT 213 10^3/uL (130-400); WHITE BLOOD COUNT 10.7 10^3/uL (4.3-11.0)
[2021-04-22 05:21] LABS: ALBUMIN 3.5 GM/DL (3.2-4.5); POTASSIUM 4.3 MMOL/L (3.6-5.0)
[2021-04-22 05:22] LABS: CALCIUM 8.7 MG/DL (8.5-10.1)
[2021-04-22 05:23] LABS: TOTAL PROTEIN 6.3 GM/DL (6.4-8.2)
[2021-04-22 05:25] LABS: BILIRUBIN,TOTAL 0.6 MG/DL (0.1-1.0)
[2021-04-22 05:26] LABS: PHOSPHORUS 3.5 MG/DL (2.3-4.7)
[2021-04-22 05:27] LABS: CREATININE SERUM 1.88 MG/DL (0.60-1.30)
[2021-04-22 05:30] LABS: MAGNESIUM 2.1 MG/DL (1.6-2.4)
[2021-04-22] MEDS: KCL 20 MEQ TAB (K-DUR) PO SCH (05:37)
[2021-04-22] MEDS: MAGNESIUM 1 GM/100 ML IVPB 100 ML IV SCH (05:37)
[2021-04-22] MEDS: POTASSIUM CL 10MEQ/50ML IVPB 50 ML IV SCH (05:37)
[2021-04-22] MEDS: inSUlin ASPART (NovoLOG) 1 UNIT/0.01 ML (CHARGE PER UNIT) SC SCH ×4 (06:28→21:11)
[2021-04-22] MEDS: VITAMIN D3 25 MCG (1,000 UNITS) TABLET PO SCH ×2 (08:12→21:12)
[2021-04-22] MEDS: RANOLAZINE ER 500 MG TAB (RANEXA) PO SCH ×2 (08:12→21:12)
[2021-04-22] MEDS: ASPIRIN 81 MG CHEW (CHILDREN'S ASA) PO SCH (08:12)
[2021-04-22] MEDS: DULoxetine 30 MG (CYMBALTA) CAP PO SCH (08:12)
[2021-04-22] MEDS: PANTOPRAZOLE 40 MG (PROTONIX) TAB PO SCH ×2 (08:12→21:13)
[2021-04-22] MEDS: PYRIDOSTIGMINE 60 MG TAB (MESTINON) NON-FORMULARY PO SCH ×4 (08:13→21:24)
[2021-04-22] MEDS ORDERED: SPIRONOLACTONE 25 MG (ALDACTONE) TAB PO SCH (09:00)
[2021-04-22] MEDS ORDERED: PENICILLIN V K 250 MG TAB PO SCH (09:00)
[2021-04-22] MEDS ORDERED: FUROSEMIDE 40 MG (LASIX) TAB PO SCH (09:00)
[2021-04-22] MEDS ORDERED: PATIENT MAY USE OWN MED,SINGLE MED PO SCH (09:15)
--- NOTE | 2021-04-22 09:28 | Tele-ICU Progress Note ---
Progress Note Video assessment done , Hemodynamically stable Available charting reviewed, discussed with RN Sepsis unclear source of infection: lungs vs bacteremia -monitor hemodynamics -empiric abx -pending cultures - IF STEROIDS ARE FOR SEPSIS - CONSIDER TAPERING DOWN CHF on milrinone drip - CARDS FOLLOW IMANI monitor urine outout and creat cl DM - WILL RESUME INSULIN Diastolic dysfunction with EF @ t [facility] 11/30/20 - 20 % Myasthenia gravis Multiple stents TX Neuropathy Esophageal Ulcers Arthritis Diabetes Mellitus, insulin dependent Anxiety CAD inoperable NO TELE-ICU CONSULT REQUESTED CONTINUE TO MONITOR PER USUAL TELE-ICU PROTOCOL No need for Tele-ICU interventions Plans as delineated by bedside physicians / consultants Focused Exam Lactate Level 04/21/21 13:00: Lactic Acid Level 1.34 04/21/21 18:54: Lactic Acid Level 1.32 Height, Weight, BMI Height: 5'8.00" Weight: 205lbs. 0.0oz. [id number]; 32.85 BMI Method:Stated VIVIEN SALAZAR MD Apr 22, 2021 09:28
--- NOTE | 2021-04-22 09:30 | Physical Therapy Evaluation ---
PT Evaluation-General Medical Diagnosis Admission Date Apr 21, 2021 at 15:30 Medical Diagnosis: A-fib Onset Date: Apr 21, 2021 Therapy Diagnosis Therapy Diagnosis: debility/weakness Height/Weight Height (Feet): 5 Height (Inches): 8.00 Weight (Pounds): 205 Weight (Ounces): 0.0 Precautions Precautions/Isolations: Fall Prevention, Standard Precautions Referral Physician: Neyda Reason for Referral: Evaluation/Treatment Medical History Pertinent Medical History: ASVD, CAD, DM, Heart Failure, HTN, [place], PVD, Renal Insufficiency Additional Medical History recent stay at Current History ER secondary to fatigue and fever Reviewed History: Yes Social History Home: Single Level Current Living Status: Spouse Prior Prior Level of Function SCALE: Activities may be completed with or without assistive devices. 1-Xwgllzdhdv-vrrkvpd completes the activity by him/herself with no assistance from a helper. 5-Set-up or Clean-up Assistance-helper sets up or cleans up; patient completes activity. Surveyor assists only prior to or following the activity. 4-Supervision or Touching Assistance-helper provides verbal cues and/or touching/steadying and/or contact guard assistance as patient completes activity. Assistance may be provided throughout the activity or intermittently. 3-Partial/Moderate Assistance-helper does LESS THAN HALF the effort. Surveyor lifts, holds or supports trunk or limbs, but provides less than half the effort. 2-Substantial/Maximal Assistance-helper does MORE THAN HALF the effort. Surveyor lifts or holds trunk or limbs and provides more than half the effort. 4-Xifdtigly-edpwly does ALL the effort. Patient does none of the effort to co mplete the activity. Or, the assistance of 2 or more helpers is required for the patient to complete the activity. If activity was not attempted, code reason: 7-Patient Refused. 9-Not Applicable-not attempted and the patient did not perform the activity before the current illness, exacerbation or injury. 10-Not Attempted due to Environmental Limitations-(lack of equipment, weather restraints, etc.). 88-Not Attempted due to Medical Conditions or Safety Concerns. Bed Mobility: 6 Transfers (B,C,W/C): 6 Gait: 6 Indoor Mobility (Ambulation): Independent Stairs: Independent Prior Devices Use: None PT Evaluation-Current Subjective Patient agrees to PT. No c/o. Objective Patient Orientation: Normal For Age Attachments: Central Line, Oxygen ROM/Strength ROM Lower Extremities bilateral LE WFL Strength Lower Extremities 4/5 grossly bilateral LE Integumentary/Posture Bowel Incontinence: No Bladder Incontinence: No Posture WFL Neuromuscular (Tone, Coordination, Reflexes) grossly intact Sensory Vision: Functional Transfers Roll Left to Right (QC): 6 Sit to Lying (QC): 6 Lying to Sitting/Side of Bed(Q: 6 Sit to Stand (QC): 6 Chair/Fug-mj-Hucwq Xfer(QC): 6 patient dons shorts independently with difficulty Gait Does the Patient Walk?: Yes Mode of Locomotion: Walk Anticipated Mode of Locomotion: Walk Walk 10 feet (QC): 6 Walk 50 ft with 2 Turns(QC): 6 Gait Assistive Device: None Comments/Gait Description safe and functional with no deviation Balance Sitting Static: Normal Sitting Dynamic: Normal Standing Static: Normal Standing Dynamic: Normal Assessment/Needs Patient is currently at independent LOF with all gross motor skills and does not require skilled therapy intervention. Rehab Potential: Fair PT Plan Treatment/Plan Treatment Plan: Discontinue PT, goals met Treatment Duration: Apr 22, 2021 Frequency: 1 time per week Estimated Hrs Per Day: .25 hour per day Patient and/or Family Agrees t: Yes Discharge Recommendations Therapy Discharge Recommendati: Home & Family Time/GCodes Time In: 738 Time Out: 752 Total Billed Treatment Time: 14 Total Billed Treatment 1 visit [employer] 14 min INDRA ZENG PT Apr 22, 2021 09:30
[2021-04-22] MEDS: SACUBITRIL/VALSARTAN 24/26 MG (ENTRESTO) TABLET PO SCH ×2 (10:00→21:12)
[2021-04-22] MEDS: meTOproloL SUCCINATE 50 MG (TOPROL XL) TAB PO SCH (10:01)
[2021-04-22] MEDS ORDERED: [UNRECOGNIZED DRUG - OTHER] IV SCH (10:30)
[2021-04-22] MEDS ORDERED: inSUlin ASPART (NovoLOG) 1 UNIT/0.01 ML (CHARGE PER UNIT) SC NR (10:30)
[2021-04-22] MEDS: inSUlin ASPART (NovoLOG) 1 UNIT/0.01 ML (CHARGE PER UNIT) SQ SCH ×2 (11:02→17:03)
[2021-04-22] MEDS ORDERED: PRD10T PO (11:09)
[2021-04-22] MEDS ORDERED: MTP25TSR PO (11:09)
[2021-04-22] MEDS ORDERED: SULF1TAB38 PO (11:09)
[2021-04-22] MEDS ORDERED: MAGN400T39 PO (11:19)
[2021-04-22] MEDS ORDERED: MILR20PI IV (11:19)
[2021-04-22] MEDS ORDERED: MILRINONE (11:29)
--- NOTE | 2021-04-22 11:30 | Occupational Therapy Eval ---
OT Evaluation-General/PLF Medical Diagnosis Admission Date Apr 21, 2021 at 15:30 Medical Diagnosis: A-fib Onset Date: Apr 21, 2021 Therapy Diagnosis Therapy Diagnosis: weakness Height/Weight Height (Feet): 5 Height (Inches): 8.00 Weight (Pounds): 205 Weight (Ounces): 0.0 Precautions Precautions/Isolations: Fall Prevention, Standard Precautions Referral Physician: Neyda Referral Reason: Evaluation/Treatment Medical History Pertinent Medical History: ASVD, CAD, DM, Heart Failure, HTN, [place], PVD, Renal Insufficiency Additional Medical History myasthenia gravis, afib, CHF, CKD, coronary stent, TIA, GERD, arthritis, gout, lupus, anxiety, neuropathy Current History ED due to fever and SOB, recently discharged from [facility] after being there ~1 month Social History Home: Single Level Current Living Status: Spouse ADL-Prior Level of Function SCALE: Activities may be completed with or without assistive devices. 2-Pkafjqfnmc-pthseqf completes the activity by him/herself with no assistance from a helper. 5-Set-up or Clean-up Assistance-helper sets up or cleans up; patient completes activity. [place] assists only prior to or following the activity. 4-Supervision or Touching Assistance-helper provides verbal cues and/or touching/steadying and/or contact guard assistance as patient completes activity. Assistance may be provided throughout the activity or intermittently. 3-Partial/Moderate Assistance-helper does LESS THAN HALF the effort. [place] lifts, holds or supports trunk or limbs, but provides less than half the effort. 2-Substantial/Maximal Assistance-helper does MORE THAN HALF the effort. [place] lifts or holds trunk or limbs and provides more than half the effort. 2-Pxecmlpzh-hgoskb does ALL the effort. Patient does none of the effort to complete the activity. Or, the assistance of 2 or more helpers is required for the patient to complete the activity. If activity was not attempted, code reason: 7-Patient Refused. 9-Not Applicable-not attempted and the patient did not perform the activity before the current illness, exacerbation or injury. 10-Not Attempted due to Environmental Limitations-(lack of equipment, weather restraints, etc.). 88-Not Attempted due to Medical Conditions or Safety Concerns. ADL PLOF Comments Pt reports IND with ADLs and functional mobility at PLOF, no AE/AD Self Care: Independent Functional Cognition: Independent Drive Self: Yes OT Current Status Subjective Pt seated upright in recliner, agreeable to OT tx, Mental Status/Objective Patient Orientation: Person, Place, Time, Situation Current Hand Dominance: Right Upper Extremity ROM WFL Upper Extremity Coordination WFL Upper Extremity Sensation WFL Upper Extremity Strength grossly 4/5 ADL-Treatment Eating (QC): 6 (Per pt report) Upper Body Dressing (QC): 6 (based on clincial judgement and pt report) Lower Body Dressing (QC): 6 (Pt reports he donned shorts this AM prior to PT, independently) On/Off Footwear (QC): 6 (IND with gripper socks.) Other Treatments Pt seated in recliner, OT educated pt on purpose and benefit of OT, she verbalized understanding. Pt provided information about PLOF and home set up and participated in UE screen. Pt states he is at his PLOF and has no concerns with his ability to complete ADLs upon returning home. He declines the need to toilet at this time, and indicates he is already clean when offered sponge bath. pt able to doff/don gripper socks independently, indicates he donned shorts independently this AM as well. Per PT evaluation, pt performed functional mobility independently without AD. Post tx, pt seated in recliner, call light in reach and all needs met. Education OT Patient Education: Correct positioning, Modified ADL techniques, Progress toward Goal/Update tx plan, Purpose of tx/functional activities, Rehab process Teaching Recipient: Patient Teaching Methods: Discussion Response to Teaching: Verbalize Understanding OT Shelter Goals Examining Officer Goals 1=Demonstrate adherence to instructed precautions during ADL tasks. 2=Patient will verbalize/demonstrate understanding of assistive devices/modifications for ADL. 3=Patient will improve strength/tolerance for activity to enable patient to perform ADL's. OT Education/Plan Problem List/Assessment Assessment: No Skilled OT Needs ID'd No skilled OT services indicated at this time as pt is at PLOF and independent with ADLs and functional mobility. Discharge Recommendations Plan/Recommendations: Discharge/Goals Met Treatment Plan/Plan of Care Patient would benefit from OT for education, treatment and training to promote independence in ADL's, mobility, safety and/or upper extremity function for ADL's. Plan of Care: ADL Retraining, Functional Mobility, UE Funct Exercise/Act Treatment Duration: Apr 22, 2021 Frequency: 1 time per week (eval only) Rehab Potential: Fair Time/GCodes Start Time: 10:35 Stop Time: 10:43 Total Time Billed (hr/min): 8 Billed Treatment Time 1, MARIANA DEL VALLE OT Apr 22, 2021 11:30
[2021-04-22] MEDS ORDERED: MILRINONE IV (11:37)
--- NOTE | 2021-04-22 13:53 | Progress Note - Cardiology ---
Cardiology SOAP Progress Note Subjective: Shortness of breath still present. He feels this is his CHF Pleuritic chest discomfort has improved/resolved Gen malaise No n/v/d Gen weakness, but denies focal weakness Objective: I&O/Vital Signs 04/22/21 04/22/21 04/22/21 04/22/21 02:35 04:00 04:09 07:36 Pulse 95 Resp 26 B/P (MAP) 150/73 (98) Pulse Ox 97 98 100 99 O2 Delivery Nasal Cannula Nasal Cannula Nasal Cannula Nasal Cannula O2 Flow Rate 2.00 1.00 1.00 2.00 04/22/21 04/22/21 04/22/21 04/22/21 08:00 08:14 11:30 11:44 Temp 36.8 36.4 Pulse 101 88 Resp 21 17 B/P (MAP) 178/87 (117) 175/88 (117) Pulse Ox 100 100 O2 Delivery Nasal Cannula Nasal Cannula Nasal Cannula Nasal Cannula O2 Flow Rate 2.00 2.00 2.00 2.00 04/22/21 12:00 Pulse 80 Resp 19 B/P (MAP) 171/89 (116) Pulse Ox 100 O2 Delivery Nasal Cannula O2 Flow Rate 2.00 04/22/21 00:00 Intake Total 460 ml Output Total 350 ml Balance 110 ml Weight (Pounds): 205 Weight (Ounces): 0.0 Weight (Calculated Kilograms): [id number] Constitutional: AAO x 3, well-developed, well-nourished Respiratory: No accessory muscle use; other (Diminished bs at bases; basal coarse and fine crackles) Cardiovascular: regular rate-rhythm, S1 and S2, systolic murmur (soft LYDIA at card base) Gastrointestional: No tender; soft; No guarding, No rebound; audible bowel sounds Extremities: pedal edema (mild to mod, bilateral, pitting leg edema); No clubbing, No cyanosis Neurologic/Psychiatric: oriented x 3, other (moves all limbs equally) Skin: normal color, warm/dry Results/Procedures: Labs Laboratory Tests 04/21/21 14:24: Urine Color YELLOW, Urine Clarity CLEAR, Urine pH 6.0, Urine Specific [place] 1.025H, Urine Protein NEGATIVE, Urine Glucose (UA) NEGATIVE, Urine Ketones NEGATIVE, Urine Nitrite NEGATIVE, Urine Bilirubin NEGATIVE, Urine Urobilinogen 0.2, Urine Leukocyte Esterase NEGATIVE, Urine RBC (Auto) NEGATIVE, Urine RBC NONE, Urine WBC RARE, Urine Squamous Epithelial Cells 0-2, Urine Crystals NONE, Urine Bacteria TRACE, Urine Casts NONE, Urine Mucus SMALLH, Urine Culture Indicated NO 04/21/21 18:54: Lactic Acid Level 1.32 04/21/21 20:09: Glucometer 270H 04/22/21 05:05: White Blood Count 10.7, Red Blood Count 3.45L, Hemoglobin 9.2L, Hematocrit 30L, Mean Corpuscular Volume 86, Mean Corpuscular Hemoglobin 27, Mean Corpuscular Hemoglobin Concent 31L, Red Cell Distribution Width 16.9H, Platelet Count 213, Mean Platelet Volume 9.7, Immature Granulocyte % (Auto) 1, Neutrophils (%) (Auto) 91H, Lymphocytes (%) (Auto) 5L, Monocytes (%) (Auto) 3, Eosinophils (%) (Auto) 0, Basophils (%) (Auto) 0, Neutrophils # (Auto) 9.8H, Lymphocytes # (Auto) 0.5L, Monocytes # (Auto) 0.3, Eosinophils # (Auto) 0.0, Basophils # (Auto) 0.0, Immature Granulocyte # (Auto) 0.1, Sodium Level 135, Potassium Level 4.3, Chloride Level 105, Carbon Dioxide Level 20L, Anion Gap 10, Blood Urea Nitrogen 23H, Creatinine 1.88H, Estimat Glomerular Filtration Rate 36, BUN/Creatinine Ratio 12, Glucose Level 331H, Calcium Level 8.7, Corrected Calcium 9.1, Phosphorus Level 3.5, Magnesium Level 2.1, Total Bilirubin 0.6, Aspartate Amino Transf (AST/SGOT) 16, Alanine Aminotransferase (ALT/SGPT) 13, Alkaline Phosphatase 17L, Total Protein 6.3L, Albumin 3.5 Microbiology 04/21/21 Blood Culture - Preliminary, Resulted No growth 04/21/21 MRSA Screen - Final, Complete MRSA not isolated Laboratory Tests 04/21/21 13:00 04/22/21 05:05 A/P: Assessment: Shortness of breath, likely multifactorial, likely due to pneumonia and ac on ch HFrEF Dilated cardiomyopathy - Echo of 07/04/20: showed LVEF 40-45%, restrictive filling pattern / diastolic dysfunction, mild MAC, mildly to mod dilated LA, hypokinesis to akinesis of anteroseptal and apical myocardium, RVSP 30 mmHg - managed by the Heart Failure Svce at [facility]; pt reports last EF was 25%; currently on continuous milrinone infusion - s/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 The mid left anterior descending artery has a widely patent stented segment (known to be overlapping Promus 3.0 x 12 and 2.25 x 16 mm stents, the overlap of which has previously been treated with a 3 mm balloon). The right coronary artery exhibits a chronic total occlusion within the stented distal part of the vessel and attempts at percutaneous intervention to this vessel today were unsuccessful. The left circumflex artery exhibits mild plaque. Mildly elevated left ventricular end-diastolic pressure. Last cath on 06/21/20 at [facility] with similar results (severe, diffuse, distal disease), no intervention undertaken CT chest 07/04/20: probable small airway or small vessel infection or inflammatory process, med and hilar adenopathy (chronic), could not exclude sarcoidosis Labile hypertension Low TSH in Jul 2015, being followed by his pcp H/o PUD, based on endoscopy of 06/08/[address] Minaya that showed multiple gastric and duodenal ulcers. Anxiety Maturity onset diabetes mellitus, being managed by Dr. Umanzor. Hyperlipidemia - intolerant to statin (muscle discomfort) Diagnosed with SLE by his pcp in early 2017 (managed by pcp) Gout. Carotid arterial disease. CTA of carotids on 09/20/15 showed 50% prox R ICA and less than 50% L ICA bulb stenoses. Mild carotid art disease on carotid u/s of 10/17/16 Peripheral arterial disease. S/p bilateral leg artery interventions by Dr Layton in Jul and Aug 2014. No leg claudication since Plan: Complex management due to multiple comorbidities Continue current regimen Change furosemide to iv Monitor labs Management of pneumonia is with the med RANJAN Brewer MD FACP FACC CCDS Apr 22, 2021 13:53
[2021-04-22] MEDS ORDERED: FUROSEMIDE 40 MG/4 ML INJ (LASIX) IVP NR (14:00)
--- NOTE | 2021-04-22 14:36 | Progress Note ---
LISA JOHNSON 04/22/21 1436: Subjective Date Seen by a Provider: Apr 22, 2021 Time Seen by a Provider: 08:30 Subjective/Events-last exam Mickey Contreras is a 65 yr old male who was admitted to the hospital 04/21/21 due to feeling short of breath and probable pneumonia. Patient also reported some chest pain, but no radiations into his extremities. The patient reported feeling better today than yesterday due to the antibiotics and continuous O2 but still reported some shortness of breath. He was diagnosed in October with Myasthenia Gravis and believes it to be playing a factor in placing him in the hospital. Patients primary concern is to be comfortable and asked to be placed on a regular diet instead of heart healthy. Review of Systems General: Appetite Pulmonary: Dyspnea Cardiovascular: Chest Pain Gastrointestinal: No: Nausea, Vomiting, Abdominal Pain Neurological: Weakness (4/5 in leg flexion.); No: Change in speech, Confusion, Seizures, Other Focused Exam Lactate Level 04/21/21 13:00: Lactic Acid Level 1.34 04/21/21 18:54: Lactic Acid Level 1.32 Objective Exam Last Set of Vital Signs Vital Signs Date Time Temp Pulse Resp B/P (MAP) Pulse Ox O2 Delivery O2 Flow Rate FiO2 04/22/21 12:00 80 19 171/89 (116) 100 Nasal Cannula 2.00 04/22/21 11:44 36.4 04/21/21 16:31 36 Capillary Refill : Less Than 3 Seconds I&O Intake and Output 04/22/21 00:00 Intake Total 460 ml Output Total 350 ml Balance 110 ml Intake Oral 460 ml Output Urine Total 350 ml Daily Weight Change No General: Alert, Oriented X3, Cooperative HEENT: EOMI (upon following my finger away from his face the patient reported double vision.) Lungs: Other (Rales in the RLL and LLL ) Heart: Regular Rate, No Murmurs Abdomen: Normal Bowel Sounds, No Tenderness, No Masses Skin: No Breakdown, No Significant Lesion Neuro: Normal Speech Psych/Mental Status: Mood NL Results Lab Laboratory Tests 04/21/21 18:54: Lactic Acid Level 1.32 04/21/21 20:09: Glucometer 270H 04/22/21 05:05: White Blood Count 10.7, Red Blood Count 3.45L, Hemoglobin 9.2L, Hematocrit 30L, Mean Corpuscular Volume 86, Mean Corpuscular Hemoglobin 27, Mean Corpuscular Hemoglobin Concent 31L, Red Cell Distribution Width 16.9H, Platelet Count 213, M [place] Platelet Volume 9.7, Immature Granulocyte % (Auto) 1, Neutrophils (%) (Auto) 91H, Lymphocytes (%) (Auto) 5L, Monocytes (%) (Auto) 3, Eosinophils (%) (Auto) 0, Basophils (%) (Auto) 0, Neutrophils # (Auto) 9.8H, Lymphocytes # (Auto) 0.5L, Monocytes # (Auto) 0.3, Eosinophils # (Auto) 0.0, Basophils # (Auto) 0.0, Immature Granulocyte # (Auto) 0.1, Sodium Level 135, Potassium Level 4.3, Chloride Level 105, Carbon Dioxide Level 20L, Anion Gap 10, Blood Urea Nitrogen 23H, Creatinine 1.88H, Estimat Glomerular Filtration Rate 36, BUN/Creatinine Ratio 12, Glucose Level 331H, Calcium Level 8.7, Corrected Calcium 9.1, Phosphorus Level 3.5, Magnesium Level 2.1, Total Bilirubin 0.6, Aspartate Amino Transf (AST/SGOT) 16, Alanine Aminotransferase (ALT/SGPT) 13, Alkaline Phosphatase 17L, Total Protein 6.3L, Albumin 3.5 Microbiology 04/21/21 Blood Culture - Preliminary, Resulted No growth 04/21/21 MRSA Screen - Final, Complete MRSA not isolated Assessment/Plan Assessment/Plan Assess & Plan/Chief Complaint Pneumonia -Continue TMP/SMX and Vancomycin to treat the pneumonia. Continue supplementary O2 and taper if able in days to come until Patient can go back to only using 2L 02 at night and patient no longer feels short of breath at rest. Heart Failure Continue to administer current regimen as is. Myasthenia Gravis Continue regimen Pt. came in with. CHERELLE BLACK MD 04/22/216: Subjective Time Seen by a Provider: 10:45 Assessment/Plan Assessment/Plan Assess & Plan/Chief Complaint See problem list Diagnosis/Problems Diagnosis/Problems (1) Bilateral pneumonia Status: Acute Assessment & Plan: Zosyn and vancomycin, improving this am. Qualifiers: Qualified Codes: J18.9 - Pneumonia, unspecified organism (2) Chronic systolic (congestive) heart failure Status: Chronic Assessment & Plan: On milrinone drip. Appreciate Cardiology recommendations. (3) Coronary artery disease Status: Chronic (4) IDDM (insulin dependent diabetes mellitus) Status: Acute (5) Mixed hyperlipidemia (6) Chronic kidney disease, stage 3 (7) Myasthenia gravis Status: Chronic Assessment & Plan: Stress dose steroids (8) DVT prophylaxis Status: Acute Assessment & Plan: Enoxaparin Supervisory-Addendum Brief Verification & Attestation Participated in pt care: history, MDM, physical Personally performed: exam, history, MDM Care discussed with: Medical Student Procedures: n/a I personally saw and examined patient today and repeated the history and physical. My findings match those documented by the medical student. See problem list for my assessment and plan. LISA JOHNSON Apr 22, 2021 14:36 CHERELLE BLACK MD Apr 22, 2021 22:06
[2021-04-22] MEDS ORDERED: VANCOMYCIN 1500 MG/NS 500 ML IVPB IV SCH ×2 (16:00)
[2021-04-22] MEDS: ISOSORBIDE MONONITRATE 60 MG (IMDUR) TAB PO SCH (21:12)
[2021-04-23] MEDS: RT-ALBUTEROL/IPRATROPIUM 3 ML (DUONEB) VIAL INH SCH ×4 (02:07→20:58)
[2021-04-23] MEDS: HYDROmorphone (DILAUDID) 2 MG TAB PO PRN ×4 (03:31→23:57)
[2021-04-23 03:33] LABS: BASOPHILS % (AUTO) 0 % (0-10); EOSINOPHILS % (AUTO) 0 % (0-10); HEMATOCRIT 29 % (40-54); HEMOGLOBIN 8.9 g/dL (13.3-17.7); LYMPHOCYTES # (AUTO) 0.5 10^3/uL (1.0-4.0); LYMPHOCYTES % (AUTO) 5 % (12-44); MEAN CORPUSCULAR HEMOGLOBIN 27 pg (25-34); MEAN CORPUSCULAR HGB CONC 31 g/dL (32-36); MEAN CORPUSCULAR VOLUME 87 fL (80-99); MEAN PLATELET VOLUME 10.5 fL (9.0-12.2); MONOCYTES # (AUTO) 0.4 10^3/uL (0.0-1.0); MONOCYTES % (AUTO) 4 % (0-12); NEUTROPHILS # (AUTO) 8.6 10^3/uL (1.8-7.8); NEUTROPHILS % (AUTO) 90 % (42-75); PLATELET COUNT 215 10^3/uL (130-400); WHITE BLOOD COUNT 9.5 10^3/uL (4.3-11.0)
[2021-04-23 03:46] LABS: ALBUMIN 3.4 GM/DL (3.2-4.5); POTASSIUM 4.8 MMOL/L (3.6-5.0)
[2021-04-23 03:47] LABS: CALCIUM 8.8 MG/DL (8.5-10.1)
[2021-04-23 03:49] LABS: TOTAL PROTEIN 6.1 GM/DL (6.4-8.2)
[2021-04-23 03:50] LABS: BILIRUBIN,TOTAL 0.4 MG/DL (0.1-1.0)
[2021-04-23 03:52] LABS: CREATININE SERUM 2.14 MG/DL (0.60-1.30); PHOSPHORUS 3.6 MG/DL (2.3-4.7)
[2021-04-23 03:55] LABS: MAGNESIUM 2.1 MG/DL (1.6-2.4)
[2021-04-23] MEDS: MAGNESIUM 1 GM/100 ML IVPB 100 ML IV SCH (04:14)
[2021-04-23] MEDS: POTASSIUM CL 10MEQ/50ML IVPB 50 ML IV SCH (04:14)
[2021-04-23] MEDS: KCL 20 MEQ TAB (K-DUR) PO SCH (04:15)
[2021-04-23] MEDS: HYDROCORTISONE 100 MG/2 ML (Solu-CORTEF) VIAL IV SCH ×3 (05:38→20:10)
[2021-04-23] MEDS: PIPERACILLIN/TAZOBACTAM (BULK) 4.5 GM in NS (IVPB) 100 ML IV SCH ×3 (05:38→20:11)
[2021-04-23] MEDS: inSUlin ASPART (NovoLOG) 1 UNIT/0.01 ML (CHARGE PER UNIT) SC SCH ×4 (05:38→20:11)
[2021-04-23] MEDS: inSUlin ASPART (NovoLOG) 1 UNIT/0.01 ML (CHARGE PER UNIT) SQ SCH ×3 (05:39→15:36)
[2021-04-23] MEDS: VITAMIN D3 25 MCG (1,000 UNITS) TABLET PO SCH ×2 (07:58→20:10)
[2021-04-23] MEDS: ENOXAPARIN 40 MG/0.4 ML (LOVENOX) SYR SC SCH (07:58)
[2021-04-23] MEDS: PYRIDOSTIGMINE 60 MG TAB (MESTINON) NON-FORMULARY PO SCH ×4 (07:58→20:10)
[2021-04-23] MEDS: DULoxetine 30 MG (CYMBALTA) CAP PO SCH (07:59)
[2021-04-23] MEDS: PANTOPRAZOLE 40 MG (PROTONIX) TAB PO SCH ×2 (07:59→20:10)
[2021-04-23] MEDS: meTOproloL SUCCINATE 50 MG (TOPROL XL) TAB PO SCH (07:59)
[2021-04-23] MEDS: SACUBITRIL/VALSARTAN 24/26 MG (ENTRESTO) TABLET PO SCH ×2 (07:59→20:10)
[2021-04-23] MEDS: ASPIRIN 81 MG CHEW (CHILDREN'S ASA) PO SCH (07:59)
[2021-04-23] MEDS: RANOLAZINE ER 500 MG TAB (RANEXA) PO SCH ×2 (07:59→20:10)
--- NOTE | 2021-04-23 08:16 | Progress Note ---
LISA JOHNSON 04/23/21 0816: Subjective Subjective/Events-last exam Mickey Contreras is a 65 year old male in the hospital with pneumonia. Since meeting with him yesterday he feels like his breathing has been better than it was. He was able to take his O2 off yesterday afternoon when at rest but still gets short of breath and needs it if he is up and moving. Hemoglobin is trending down in the past 2 days, but isn't a major cause for concern as of this time. Patient feels like the Furosemide injections has helped him. Since switching to normal diet patient has been experiencing hyperglycemia. Review of Systems General: No Chills, No Night Sweats HEENT: No Head Aches Pulmonary: Dyspnea, Cough Cardiovascular: Chest Pain (reports the chest pain is his normal chest pain due to his heart failure) Gastrointestinal: No: Nausea, Vomiting, Abdominal Pain, Diarrhea, Constipation Genitourinary: No Dysuria; Frequency (good); No Incontinence, No Hematuria, No Retention Musculoskeletal: No: neck pain, shoulder pain, arm pain, back pain, hand pain, leg pain, foot pain Neurological: No: Weakness, Numbness, Change in speech, Confusion Focused Exam Lactate Level 04/21/21 13:00: Lactic Acid Level 1.34 04/21/21 18:54: Lactic Acid Level 1.32 Objective Exam Last Set of Vital Signs Vital Signs Date Time Temp Pulse Resp B/P (MAP) Pulse Ox O2 Delivery O2 Flow Rate FiO2 04/23/21 08:00 36.3 04/23/21 07:41 Room Air 04/23/21 04:00 72 29 161/82 (108) 99 2.00 04/21/21 16:31 36 Capillary Refill : Less Than 3 Seconds I&O Intake and Output 04/23/21 00:00 Intake Total 2950 ml Output Total 2350 ml Balance 600 ml Intake Oral 2075 ml IV Total 875 ml Output Urine Total 2350 ml # Bowel Movements 2 General: Alert, Oriented X3, Cooperative HEENT: Atraumatic Lungs: Other (crackles in both lower lobes ) Heart: Regular Rate Abdomen: Normal Bowel Sounds, Soft, No Tenderness, No Masses Skin: No Rashes, No Breakdown, No Significant Lesion Neuro: Normal Speech Psych/Mental Status: Mental Status NL, Mood NL Results/Procedures Lab Laboratory Tests 04/23/21 03:17: White Blood Count 9.5, Red Blood Count 3.28L, Hemoglobin 8.9L, Hematocrit 29L, Mean Corpuscular Volume 87, Mean Corpuscular Hemoglobin 27, Mean Corpuscular Hemoglobin Concent 31L, Red Cell Distribution Width 16.8H, Platelet Count 215, Mean Platelet Volume 10.5, Immature Granulocyte % (Auto) 1, Neutrophils (%) (Auto) 90H, Lymphocytes (%) (Auto) 5L, Monocytes (%) (Auto) 4, Eosinophils (%) (Auto) 0, Basophils (%) (Auto) 0, Neutrophils # (Auto) 8.6H, Lymphocytes # (Auto) 0.5L, Monocytes # (Auto) 0.4, Eosinophils # (Auto) 0.0, Basophils # (Auto) 0.0, Immature Granulocyte # (Auto) 0.1, Sodium Level 136, Potassium Level 4.8, Chloride Level 106, Carbon Dioxide Level 19L, Anion Gap 11, Blood Urea Nitrogen 33H, Creatinine 2.14H, Estimat Glomerular Filtration Rate 31, BUN/Creatinine Ratio 15, Glucose Level 378H, Calcium Level 8.8, Corrected Calcium 9.3, Phosphorus Level 3.6, Magnesium Level 2.1, Total Bilirubin 0.4, Aspartate Amino Transf (AST/SGOT) 15, Alanine Aminotransferase (ALT/SGPT) 12, Alkaline Phosphatase 45, Total Protein 6.1L, Albumin 3.4 Microbiology 04/21/21 Blood Culture - Preliminary, Resulted No growth 04/21/21 MRSA Screen - Final, Complete MRSA not isolated 04/21/21 Urine Culture - Preliminary, Resulted Culture In Progress Assessment/Plan Assessment/Plan Admission Dx Pneumonia Assessment & Plan Pneumonia -Patient both feels and looks better than yesterday and is able to tolerate no supplemental Oxygen at rest off and on today. Still experiencing some shortness of breath. -Blood cultures came back with coag negative staph in one culture, but nothing on the rest. Chest X ray from 04/21 shows more diffuse infiltrate compared to lobar infiltrate. -Consider discontinuing Vancomycin at this time since history of renal disease and no indication of MRSA infection. -Continue Piperacillin/Tazobactam for now and find alternative for once patient is discharged. Heart failure -Continue outpatient regimen as well as the Furosemide at this point. Hyperglycemia - Consider increasing amounts of Insulin Aspart and.or Detemir to get patient to a better baseling Blood glucose since on normal diet. Acute on chronic Kidney insufficiency - Patient has elevated BUN (33) & Creatinine (15.42). This is trending up from prior days and needs to be watched. - Believe it to be due to pts antibiotics and furosemide and will hopefully decrease upon discontinuation. CHERELLE BLACK MD 04/23/21 5818: Supervisory-Addendum Brief Verification & Attestation Participated in pt care: history, MDM, physical Personally performed: exam, history, MDM Care discussed with: Medical Student Procedures: n/a I personally saw and evaluated patient and did my own history and exam and my findings match those documented by the medical student. I directed the plan of care as documented by the medical student. LISA JOHNSON Apr 23, 2021 08:16 CHERELLE BLACK MD Apr 23, 2021 17:08
[2021-04-23] MEDS ORDERED: FUROSEMIDE 40 MG/4 ML INJ (LASIX) IVP SCH (09:00)
[2021-04-23] MEDS ORDERED: PHARMACY TO DOSE SQ SCH (09:00)
--- NOTE | 2021-04-23 14:53 | Progress Note - Cardiology ---
Cardiology SOAP Progress Note Subjective: Feels better today, less short of breath No cp or palp or syncope No n/v/d Gen weakness and malaise present Objective: I&O/Vital Signs 04/23/21 04/23/21 04/23/21 04/23/21 04:00 04:00 04:00 07:41 Temp 36.2 Pulse 72 Resp 29 B/P (MAP) 161/82 (108) Pulse Ox 99 O2 Delivery Nasal Cannula Nasal Cannula Room Air O2 Flow Rate 2.00 2.00 04/23/21 04/23/21 04/23/21 04/23/21 08:00 08:00 09:42 11:35 Temp 36.3 Pulse 82 Resp 20 B/P (MAP) 143/69 (93) Pulse Ox 96 97 O2 Delivery Nasal Cannula Room Air Room Air O2 Flow Rate 2.00 04/23/21 04/23/21 11:59 14:25 Temp 36.1 Pulse 87 Resp 20 B/P (MAP) 125/98 (107) Pulse Ox 98 100 O2 Delivery Nasal Cannula Nasal Cannula O2 Flow Rate 2.00 2.00 04/23/21 00:00 Intake Total 2105 ml Output Total 1300 ml Balance 805 ml Weight (Pounds): 205 Weight (Ounces): 0.0 Weight (Calculated Kilograms): 92.872704 Constitutional: AAO x 3, well-developed, well-nourished Respiratory: No accessory muscle use; other (Diminished bs at bases; basal coarse and fine crackles) Cardiovascular: regular rate-rhythm, S1 and S2, systolic murmur (soft LYDIA at card base) Gastrointestional: No tender; soft; No guarding, No rebound; audible bowel sounds Extremities: pedal edema (mild to mod, bilateral, pitting leg edema); No clubbing, No cyanosis Neurologic/Psychiatric: oriented x 3, other (moves all limbs equally) Skin: normal color, warm/dry Results/Procedures: Labs Laboratory Tests 04/23/21 03:17: White Blood Count 9.5, Red Blood Count 3.28L, Hemoglobin 8.9L, Hematocrit 29L, Mean Corpuscular Volume 87, Mean Corpuscular Hemoglobin 27, Mean Corpuscular Hemoglobin Concent 31L, Red Cell Distribution Width 16.8H, Platelet Count 215, Mean Platelet Volume 10.5, Immature Granulocyte % (Auto) 1, Neutrophils (%) (Auto) 90H, Lymphocytes (%) (Auto) 5L, Monocytes (%) (Auto) 4, Eosinophils (%) (Auto) 0, Basophils (%) (Auto) 0, Neutrophils # (Auto) 8.6H, Lymphocytes # (Auto) 0.5L, Monocytes # (Auto) 0.4, Eosinophils # (Auto) 0.0, Basophils # (Auto) 0.0, Immature Granulocyte # (Auto) 0.1, Sodium Level 136, Potassium Level 4.8, Chloride Level 106, Carbon Dioxide Level 19L, Anion Gap 11, Blood Urea Nitrogen 33H, Creatinine 2.14H, Estimat Glomerular Filtration Rate 31, BUN/Creatinine Ratio 15, Glucose Level 378H, Calcium Level 8.8, Corrected Calcium 9.3, Phosphorus Level 3.6, Magnesium Level 2.1, Total Bilirubin 0.4, Aspartate Amino Transf (AST/SGOT) 15, Alanine Aminotransferase (ALT/SGPT) 12, Alkaline Phosphatase 45, Total Protein 6.1L, Albumin 3.4 04/23/21 10:22: Glucometer 232H Microbiology 04/21/21 Blood Culture - Preliminary, Resulted No growth 04/21/21 MRSA Screen - Final, Complete MRSA not isolated 04/21/21 Urine Culture - Preliminary, Resulted Staphylococcus epidermidis Laboratory Tests 04/22/21 05:05 04/23/21 03:17 A/P: Assessment: Shortness of breath, likely multifactorial, likely due to pneumonia and ac on ch HFrEF Dilated cardiomyopathy - Echo of 07/04/20: showed LVEF 40-45%, restrictive filling pattern / diastolic dysfunction, mild MAC, mildly to mod dilated LA, hypokinesis to akinesis of anteroseptal and apical myocardium, RVSP 30 mmHg - managed by the Heart Failure Svce at [facility]; pt reports last EF was 25%; currently on continuous milrinone infusion - s/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 The mid left anterior descending artery has a widely patent stented segment (known to be overlapping Promus 3.0 x 12 and 2.25 x 16 mm stents, the overlap of which has previously been treated with a 3 mm balloon). The right coronary artery exhibits a chronic total occlusion within the stented distal part of the vessel and attempts at percutaneous intervention to this vessel today were unsuccessful. The left circumflex artery exhibits mild plaque. Mildly elevated left ventricular end-diastolic pressure. Last cath on 06/21/20 at [facility] with similar results (severe, diffuse, distal disease), no intervention undertaken CT chest 07/04/20: probable small airway or small vessel infection or inflammatory process, med and hilar adenopathy (chronic), could not exclude sarcoidosis Labile hypertension Low TSH in Jul 2015, being followed by his pcp H/o PUD, based on endoscopy of 06/08/[address] Minaya that showed multiple gastric and duodenal ulcers. Anxiety Maturity onset diabetes mellitus, being managed by Dr. Umanzor. Hyperlipidemia - intolerant to statin (muscle discomfort) Diagnosed with SLE by his pcp in early 2017 (managed by pcp) Gout. Carotid arterial disease. CTA of carotids on 09/20/15 showed 50% prox R ICA and less than 50% L ICA bulb stenoses. Mild carotid art disease on carotid u/s of 06/23 Peripheral arterial disease. S/p bilateral leg artery interventions by Dr Layton in Jul and Aug 2014. No leg claudication since Plan: Complex management due to multiple comorbidities CHF and pneumonia appear to improving clinically, but renal function is worse. Reduce diuretic Monitor labs Management of pneumonia is with the med RANJAN Brewer MD FACP [facility] Apr 23, 2021 14:53
[2021-04-23] MEDS: ISOSORBIDE MONONITRATE 60 MG (IMDUR) TAB PO SCH (20:10)
[2021-04-24 02:25] LABS: BASOPHILS % (AUTO) 0 % (0-10); EOSINOPHILS % (AUTO) 0 % (0-10); HEMATOCRIT 28 % (40-54); HEMOGLOBIN 8.7 g/dL (13.3-17.7); LYMPHOCYTES # (AUTO) 0.6 10^3/uL (1.0-4.0); LYMPHOCYTES % (AUTO) 6 % (12-44); MEAN CORPUSCULAR HEMOGLOBIN 27 pg (25-34); MEAN CORPUSCULAR HGB CONC 31 g/dL (32-36); MEAN CORPUSCULAR VOLUME 86 fL (80-99); MEAN PLATELET VOLUME 10.4 fL (9.0-12.2); MONOCYTES # (AUTO) 0.4 10^3/uL (0.0-1.0); MONOCYTES % (AUTO) 4 % (0-12); NEUTROPHILS # (AUTO) 8.7 10^3/uL (1.8-7.8); NEUTROPHILS % (AUTO) 89 % (42-75); PLATELET COUNT 251 10^3/uL (130-400); WHITE BLOOD COUNT 9.7 10^3/uL (4.3-11.0)
[2021-04-24] MEDS: RT-ALBUTEROL/IPRATROPIUM 3 ML (DUONEB) VIAL INH SCH ×2 (02:31→08:12)
[2021-04-24 02:36] LABS: ALBUMIN 3.4 GM/DL (3.2-4.5); POTASSIUM 4.3 MMOL/L (3.6-5.0)
[2021-04-24 02:37] LABS: CALCIUM 8.7 MG/DL (8.5-10.1)
[2021-04-24 02:40] LABS: BILIRUBIN,TOTAL 0.3 MG/DL (0.1-1.0)
[2021-04-24 02:41] LABS: PHOSPHORUS 4.2 MG/DL (2.3-4.7)
[2021-04-24 02:42] LABS: CREATININE SERUM 1.8 MG/DL (0.60-1.30)
[2021-04-24 02:44] LABS: MAGNESIUM 1.9 MG/DL (1.6-2.4)
[2021-04-24] MEDS: inSUlin ASPART (NovoLOG) 1 UNIT/0.01 ML (CHARGE PER UNIT) SC SCH ×2 (04:59→12:02)
[2021-04-24] MEDS: HYDROCORTISONE 100 MG/2 ML (Solu-CORTEF) VIAL IV SCH (04:59)
[2021-04-24] MEDS: PIPERACILLIN/TAZOBACTAM (BULK) 4.5 GM in NS (IVPB) 100 ML IV SCH (04:59)
[2021-04-24] MEDS: inSUlin ASPART (NovoLOG) 1 UNIT/0.01 ML (CHARGE PER UNIT) SQ SCH ×2 (05:00→12:03)
[2021-04-24] MEDS: POTASSIUM CL 10MEQ/50ML IVPB 50 ML IV SCH (05:04)
[2021-04-24] MEDS: KCL 20 MEQ TAB (K-DUR) PO SCH (05:05)
[2021-04-24] MEDS: MAGNESIUM 1 GM/100 ML IVPB 100 ML IV SCH (05:05)
[2021-04-24] MEDS: SACUBITRIL/VALSARTAN 24/26 MG (ENTRESTO) TABLET PO SCH (08:58)
[2021-04-24] MEDS: RANOLAZINE ER 500 MG TAB (RANEXA) PO SCH (08:58)
[2021-04-24] MEDS: ASPIRIN 81 MG CHEW (CHILDREN'S ASA) PO SCH (08:58)
[2021-04-24] MEDS: DULoxetine 30 MG (CYMBALTA) CAP PO SCH (08:58)
[2021-04-24] MEDS: PANTOPRAZOLE 40 MG (PROTONIX) TAB PO SCH (08:58)
[2021-04-24] MEDS: VITAMIN D3 25 MCG (1,000 UNITS) TABLET PO SCH (08:58)
[2021-04-24] MEDS ORDERED: FUROSEMIDE 40 MG (LASIX) TAB PO SCH (09:00)
[2021-04-24] MEDS: ENOXAPARIN 40 MG/0.4 ML (LOVENOX) SYR SC SCH (09:01)
[2021-04-24] MEDS: meTOproloL SUCCINATE 50 MG (TOPROL XL) TAB PO SCH (09:01)
[2021-04-24] MEDS: PYRIDOSTIGMINE 60 MG TAB (MESTINON) NON-FORMULARY PO SCH ×2 (09:01→12:03)
[2021-04-24] MEDS: HYDROmorphone (DILAUDID) 2 MG TAB PO PRN (09:08)
--- NOTE | 2021-04-24 09:53 | Progress Note - Cardiology ---
Cardiology SOAP Progress Note Subjective: Shortness of breath improved No cp or palp or syncope No n/v/d Gen weakness and malaise as before Objective: I&O/Vital Signs 04/24/21 04/24/21 04/24/21 04/24/21 00:00 00:40 02:32 04:00 Temp 36.6 36.3 Pulse 90 B/P (MAP) 131/74 (93) Pulse Ox 98 100 O2 Delivery Nasal Cannula Nasal Cannula O2 Flow Rate 2.00 2.00 04/24/21 04/24/21 04/24/21 04/24/21 04:00 08:12 08:20 09:00 Temp 36.4 Pulse 82 95 B/P (MAP) 132/62 (85) 157/97 (117) Pulse Ox 98 99 97 O2 Delivery Nasal Cannula Room Air Room Air Room Air O2 Flow Rate 2.00 04/24/21 00:00 Intake Total 1765 ml Output Total 1075 ml Balance 690 ml Weight (Pounds): 205 Weight (Ounces): 0.0 Weight (Calculated Kilograms): 92.519767 Constitutional: AAO x 3, well-developed, well-nourished Respiratory: No accessory muscle use; other (Diminished bs at bases; basal coarse and fine crackles) Cardiovascular: regular rate-rhythm, S1 and S2, systolic murmur (soft LYDIA at card base) Gastrointestional: No tender; soft; No guarding, No rebound; audible bowel sounds Extremities: pedal edema (mild to mod, bilateral, pitting leg edema); No clubbing, No cyanosis Neurologic/Psychiatric: oriented x 3, other (moves all limbs equally) Skin: normal color, warm/dry Results/Procedures: Labs Laboratory Tests 04/23/21 10:22: Glucometer 232H 04/23/21 15:27: Glucometer 365H 04/23/21 21:16: Glucometer 366H 04/24/21 02:15: White Blood Count 9.7, Red Blood Count 3.22L, Hemoglobin 8.7L, Hematocrit 28L, Mean Corpuscular Volume 86, Mean Corpuscular Hemoglobin 27, Mean Corpuscular Hemoglobin Concent 31L, Red Cell Distribution Width 16.5H, Platelet Count 251, Mean Platelet Volume 10.4, Immature Granulocyte % (Auto) 1, Neutrophils (%) (Auto) 89H, Lymphocytes (%) (Auto) 6L, Monocytes (%) (Auto) 4, Eosinophils (%) (Auto) 0, Basophils (%) (Auto) 0, Neutrophils # (Auto) 8.7H, Lymphocytes # (Auto) 0.6L, Monocytes # (Auto) 0.4, Eosinophils # (Auto) 0.0, Basophils # (Auto) 0.0, Immature Granulocyte # (Auto) 0.1, Sodium Level 136, Potassium Level 4.3, Chloride Level 105, Carbon Dioxide Level 20L, Anion Gap 11, Blood Urea Nitrogen 32H, Creatinine 1.80H, Estimat Glomerular Filtration Rate 38, BUN/ Creatinine Ratio 18, Glucose Level 283H, Calcium Level 8.7, Corrected Calcium 9 .2, Phosphorus Level 4.2, Magnesium Level 1.9, Total Bilirubin 0.3, Aspartate Amino Transf (AST/SGOT) 12, Alanine Aminotransferase (ALT/SGPT) 11, Alkaline Phosphatase 40, Total Protein 6.0L, Albumin 3.4 Microbiology 04/21/21 Blood Culture - Preliminary, Resulted No growth 04/21/21 MRSA Screen - Final, Complete MRSA not isolated 04/21/21 Urine Culture - Final, Complete Staphylococcus epidermidis Laboratory Tests 04/23/21 03:17 04/24/21 02:15 A/P: Assessment: Shortness of breath, likely multifactorial, likely due to pneumonia and ac on ch HFrEF Dilated cardiomyopathy - Echo of 07/04/20: showed LVEF 40-45%, restrictive filling pattern / diastolic dysfunction, mild MAC, mildly to mod dilated LA, hypokinesis to akinesis of anteroseptal and apical myocardium, RVSP 30 mmHg - managed by the Heart Failure Svce at [facility]; pt reports last EF was 25%; currently on continuous milrinone infusion - 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 The mid left anterior descending artery has a widely patent stented segment (known to be overlapping Promus 3.0 x 12 and 2.25 x 16 mm stents, the overlap of which has previously been treated with a 3 mm balloon). The right coronary artery exhibits a chronic total occlusion within the stented distal part of the vessel and attempts at percutaneous intervention to this vessel today were unsuccessful. The left circumflex artery exhibits mild plaque. Mildly elevated left ventricular end-diastolic pressure. Last cath on 06/21/20 at [facility] with similar results (severe, diffuse, distal disease), no intervention undertaken CT chest 07/04/20: probable small airway or small vessel infection or inflammatory process, med and hilar adenopathy (chronic), could not exclude sarcoidosis Labile hypertension Low TSH in Jul 2015, being followed by his pcp H/o PUD, based on endoscopy of 06/08/[address] Minaya that showed multiple gastric and duodenal ulcers. Anxiety Maturity onset diabetes mellitus, being managed by Dr. Umanzor. Hyperlipidemia - intolerant to statin (muscle discomfort) Diagnosed with SLE by his pcp in early 2017 (managed by pcp) Gout. Carotid arterial disease. CTA of carotids on 09/20/15 showed 50% prox R ICA and less than 50% L ICA bulb stenoses. Mild carotid art disease on carotid u/s of 10/17/16 Peripheral arterial disease. S/p bilateral leg artery interventions by Dr Layton in Jul and Aug 2014. No leg claudication since Plan: Complex management due to multiple comorbidities CHF and pneumonia appear to have improved clinically Monitor labs Management of pneumonia is with the med svce Outpt cardiac f/u advised RANJAN CABRERA MD [facility] Apr 24, 2021 09:53
--- NOTE | 2021-04-24 12:30 | Discharge Summary ---
Discharge Summary Hospital Course Hospital Course Date of Admission: Apr 21, 2021 at 15:30 Admission Diagnosis : Family Physician/Provider: HarithaLocal Physician Date of Discharge: 04/24/21 Discharge Diagnosis: Acute on chronic systolic congestive heart failure Diabetes type II, insulin dependent Myasthenia gravis Hospital Course: Possible pneumonia- pt discharged recently from on Bactrim for possible line infection, came to ER due to fever and shortness of breath. CXR without clear pneumonia and he had mild leukocytosis, was treated with Zosyn inpatient, but ultimately discharged on VISUAL SPECIALIST bactrim as his shortness of breath seemed to be more related to CHF exacerbation for which he received IV diuresis with good improvement. He was continued on his home milrinone infusion and heart failure medications and had stress dose steroids for his myasthenia gravis. Labs and Pending Lab Test: Laboratory Tests 04/23/21 15:27: Glucometer 365H 04/23/21 21:16: Glucometer 366H 04/24/21 02:15: White Blood Count 9.7, Red Blood Count 3.22L, Hemoglobin 8.7L, Hematocrit 28L, Mean Corpuscular Volume 86, Mean Corpuscular Hemoglobin 27, Mean Corpuscular Hemoglobin Concent 31L, Red Cell Distribution Width 16.5H, Platelet Count 251, Mean Platelet Volume 10.4, Immature Granulocyte % (Auto) 1, Neutrophils (%) (Auto) 89H, Lymphocytes (%) (Auto) 6L, Monocytes (%) (Auto) 4, Eosinophils (%) (Auto) 0, Basophils (%) (Auto) 0, Neutrophils # (Auto) 8.7H, Lymphocytes # (Auto) 0.6L, Monocytes # (Auto) 0.4, Eosinophils # (Auto) 0.0, Basophils # (Auto) 0.0, Immature Granulocyte # (Auto) 0.1, Sodium Level 136, Potassium Level 4.3, Chloride Level 105, Carbon Dioxide Level 20L, Anion Gap 11, Blood Urea Nitrogen 32H, Creatinine 1.80H, Estimat Glomerular Filtration Rate 38, B UN/Creatinine Ratio 18, Glucose Level 283H, Calcium Level 8.7, Corrected Calcium 9.2, Phosphorus Level 4.2, Magnesium Level 1.9, Total Bilirubin 0.3, Aspartate Amino Transf (AST/SGOT) 12, Alanine Aminotransferase (ALT/SGPT) 11, Alkaline Phosphatase 40, Total Protein 6.0L, Albumin 3.4 Microbiology 04/21/21 Blood Culture - Preliminary, Resulted No growth 04/21/21 MRSA Screen - Final, Complete MRSA not isolated 04/21/21 Urine Culture - Final, Complete Staphylococcus epidermidis Home Meds Active Reported [[id number]] 1 Ea IV UD RATE=1.8ML/HR DOSE RATE=0.25MCG/KG/MIN; WT=96KG Magnesium (Magnesium Oxide) 400 Mg Tablet 400 Mg PO BID Metoprolol Succinate 25 Mg Tab.er.24h 12.5 Mg PO DAILY TAKES OF A 25MG Prednisone 10 Mg Tab 10 Mg PO DAILY Bactrim Ds Tablet (Sulfamethoxazole/Trimethoprim) 1 Each Tablet 1 Ea PO BID FILLED 04-16-2021 #60/30 DAY SUPPLY Ranolazine ER (Ranolazine) 1,000 Mg Tab.er.12h 1,000 Mg PO BID Gabapentin 600 Mg Tablet 600 Mg PO HS PRN Hydromorphone HCl 2 Mg Tablet 2-4 Mg PO Q6H PRN Entresto 24 mg-26 mg Tablet (Sacubitril/Valsartan) 1 Each Tablet 1 Ea PO BID Isosorbide Mononitrate ER (Isosorbide Mononitrate) 60 Mg Tab 60 Mg PO HS Novolog Flexpen (Insulin Aspart) 300 Units/3 Ml Solution 30 Units SQ AC Gamunex-C (Immune Glob,Adriano Caprylate(IgG)) 40 Gm/400 Ml Vial 50 Gm IJ EVERY 4 WEEKS Soliris (Eculizumab) 300 Mg/30 Ml Vial 1,200 Mg IV EVERY 2 WEEKS Fish Oil 1,200 mg Softgel ([place]-3 Fatty Acids/Fish Oil) 1 Each Capsule 1 Each PO HS Aspirin 81 Mg Tab.chew 81 Mg PO DAILY Vitamin D3 (Cholecalciferol (Vitamin D3)) 25 Mcg Capsule 25 Mcg PO BID Atorvastatin Calcium 80 Mg Tablet 80 Mg PO HS LAST FILLED 12-04-2020 #90/90 DAY SUPPLY Basaglar Kwikpen U-100 (Insulin Glargine,Hum.rec.anlog) 100 Unit/1 Ml Insuln.pen 40 Units SC BID Furosemide 40 Mg Tablet 40 Mg PO DAILY Duloxetine HCl 30 Mg Capsule.dr 30 Mg PO DAILY LAST FILLED 12-11-2020 #90/90 DAY SUPPLY Mestinon (Pyridostigmine [place]) 60 Mg Tab 60 Mg PO QID Pantoprazole Sodium 40 Mg Tablet.dr 40 Mg PO BID Assessment/Pt DC Instructions Follow up with Denise Alba APRN at [facility] on 05/01 at 3:20 pm. Discharge Diet: Low Sodium Diet, ADA Diet Discharge Physical Examination Allergies: Coded Allergies: albumin colloid, human (Verified Allergy, Unknown, 12/15/20) carvedilol (Unverified Allergy, Unknown, 01/22/10) codeine (Unverified Allergy, Unknown, PATIENT HAS RECEIVED MORPHINE WITHOUT ISSUE, 06/08/15) trazodone (Verified Allergy, Unknown, 12/15/20) General Appearance: No Apparent Distress Respiratory: Lungs Clear, Normal Breath Sounds Cardiovascular: Regular Rate, Rhythm, No Murmur Extremity: No Pedal Edema Skin: Warm/Dry CHERELLE BLACK MD Apr 24, 2021 12:30
--- NOTE | 2021-04-24 12:31 | D/C HH Face to Face Order ---
D/C Face to Face Orders Instructions for Patient Patient Instructions/FollowUp: Follow up with Denise Alba APRN on 05/01 at 3:20 pm. Physician to follow Patient: Denise Alba APRN Discharge Diet for Home: ADA Diet, Cardiac Diet Patient Problems: See problem list Patient Data-Allergies,Ht & Wt Patient Allergies: Coded Allergies: albumin colloid, human (Verified Allergy, Unknown, 12/15/20) carvedilol (Unverified Allergy, Unknown, 01/22/10) codeine (Unverified Allergy, Unknown, PATIENT HAS RECEIVED MORPHINE WITHOUT ISSUE, 06/08/15) trazodone (Verified Allergy, Unknown, 12/15/20) Height (Feet): 5 Height (Inches): 8.00 Weight (Pounds): 205 Weight (Ounces): 0.0 Home Health Need/Face to Face Date of Face to Face: Apr 24, 2021 Clinical Findings: Generalized weakness and fatigue, Shortness of breath I have seen Pt [id number]: Yes Discharged To: Home Diagnosis/Conditions: See problem list Problems/Diagnosis/Condition: (1) Chronic systolic (congestive) heart failure (2) Myasthenia gravis (3) IDDM (insulin dependent diabetes mellitus) (4) Coronary artery disease (5) Chronic kidney disease, stage 3 Patient is Homebound due to: Shortness of breath/distress Homebound Status Due to the above stated illness, injury or surgical procedure (medical condition or diagnosis) and associated clinical findings, the patient is homebound because of his/her inability to leave home except with aid of a supportive device and/or person AND leaving the home requires a considerable and taxing effort or is medically contraindicated. Pt req the following assistanc: Aid of another person Home Health Nursing Orders Home Health Services Order: Nursing Services Certify Stmt I certify that this patient is under my care and that I, a nurse practitioner or a physician; a assistant statistician working with me, had a face to face encounter that - meets the physician face to face encounter requirements with this patient as dated. CHERELLE BLACK MD Apr 24, 2021 12:31
--- NOTE | 2021-04-24 16:47 | Physician Query Clarification ---
Physician Query-General Query to Physician: The medical record reflects the following clinical scenario: The patient, in the setting of History/Risk factors, Pneumonia, Immunosuppressive Therapy Clinical Findings Admission VS/Labs: HR 119, RR 28, BP 131/71, SpO2 94% sat on 4 L T 38.2, WBC 12.3 Treatment Normal saline Appox 2.7L fluids in 36 hours, Zosyn IV, vancomycin IV, hydrocortisone injection, ICU admission Question: Do you agree with the impression of Sepsis, present on admission per Dr. Faizan Faye? 1. Yes; will document Sepsis, Present on admission in the Progress Notes/Discharge Summary 2. No; will continue current documentation in the Progress Notes 3. Other; will document explanation of clinical findings 4. Clinically undetermined; no explanation for clinical findings Please clarify and document your clinical opinion in the Progress Notes and Discharge Summary including the definitive and/or presumptive diagnosis, (suspected or probable), related to the above clinical findings. Please include clinical findings supporting your diagnosis. In responding to this query, please exercise your independent professional judgment. The purpose of this communication is to more accurately reflect the complexity of your patients condition. The fact that a question is asked does not imply that any particular answer is desired or expected. Please remember a lack of response to the above will prompt a phone page by CDI/coding staff Thank you for timely response to this clarification. Sabrina Bey MSN, RN Clinical Watch Train Inspector [phone] [email or web address] PHYSICIAN RESPONSE: Based on the clinical findings in the record, please respond to the query above on this document as an addendum. Physician Response: Physician Response 3 If you have questions please contact: Supervisor Filtration: Ext: Thank you for your time and cooperation. Clinical Watch Train Inspector/Supervisor Filtration This is a permanent part of the medical record SABRINA BYE Apr 24, 2021 16:47 CHERELLE BLACK MD Apr 24, 2021 22:28
--- NOTE | 2021-04-24 16:57 | Physician Query Clarification ---
Physician Query-General Query to Physician: The medical record reflects the following clinical evidence: Clinical Indicators: Admission: SOA at rest, Tachypnea, RR 28, 94% 02 sat on 4L (P/F = 202), HR 119 Risk Factor(s): Cardiomyopathy/EF 10%, Pneumonia, Treatment: Supplemental 02, IV ABX, IVF's, Breathing RX 1. Acute respiratory failure with hypoxia, present on Admission 2. Other explanation of clinical findings 3. Unable to determine (no explanation for clinical findings) Please clarify and document your clinical opinion in the progress notes and discharge summary including the definitive and/or presumptive diagnosis, (suspected or probable), related to the above clinical findings. Please include clinical findings supporting your diagnosis. Sabrina Bey MSN, RN Clinical Museum Or Zoo Director [phone] [email or web address] PHYSICIAN RESPONSE: Based on the clinical findings in the record, please respond to the query above on this document as an addendum. Physician Response: Physician Response 1 If you have questions please contact: Ear Muff Assembler: Ext: Thank you for your time and cooperation. Clinical Museum Or Zoo Director/Ear Muff Assembler This is a permanent part of the medical record SABRINA BEY Apr 24, 2021 16:57 CHERELLE BLACK MD Apr 24, 2021 22:37
== END 2021-04-24 13:10 | disposition home health service (06) | DRG 291 ==
LOC: EDUNIT# 12:44 → ER 12:46 → ICU 15:30
PROVIDERS: ADMIT Family Medicine; ATTEND Family Medicine
DX: I13.0 Hypertensive heart and chronic kidney disease with heart failure and stage 1 through stage 4 chronic kidney disease, or unspecified chronic kidney disease (principal); I50.23 Acute on chronic systolic (congestive) heart failure; J96.01 Acute respiratory failure with hypoxia; J18.9 Pneumonia, unspecified organism; N17.9 Acute kidney failure, unspecified; E11.22 Type 2 diabetes mellitus with diabetic chronic kidney disease; E11.65 Type 2 diabetes mellitus with hyperglycemia; N18.30 Chronic kidney disease, stage 3 unspecified; Z20.822 Contact with and (suspected) exposure to COVID-19; G70.00 Myasthenia gravis without (acute) exacerbation; I48.91 Unspecified atrial fibrillation; I42.0 Dilated cardiomyopathy; I25.10 Atherosclerotic heart disease of native coronary artery without angina pectoris; E78.00 Pure hypercholesterolemia, unspecified; E78.2 Mixed hyperlipidemia; K21.9 Gastro-esophageal reflux disease without esophagitis; M19.91 Primary osteoarthritis, unspecified site; M10.9 Gout, unspecified; G47.33 Obstructive sleep apnea (adult) (pediatric); E66.9 Obesity, unspecified; Z68.33 Body mass index [BMI] 33.0-33.9, adult; M32.9 Systemic lupus erythematosus, unspecified; F41.9 Anxiety disorder, unspecified; E11.40 Type 2 diabetes mellitus with diabetic neuropathy, unspecified; I25.82 Chronic total occlusion of coronary artery; Z95.5 Presence of coronary angioplasty implant and graft; Z79.4 Long term (current) use of insulin; Z95.820 Peripheral vascular angioplasty status with implants and grafts; Z95.0 Presence of cardiac pacemaker; Z99.81 Dependence on supplemental oxygen; Z87.01 Personal history of pneumonia (recurrent); Z83.3 Family history of diabetes mellitus; Z82.49 Family history of ischemic heart disease and other diseases of the circulatory system; Z79.82 Long term (current) use of aspirin; Z79.52 Long term (current) use of systemic steroids; Z79.899 Other long term (current) drug therapy; Z88.6 Allergy status to analgesic agent; Z88.8 Allergy status to other drugs, medicaments and biological substances
CPT/HCPCS: 36415; 71045; 80053; 81000; 82947; 83605; 83735; 83880; 84100; 84145; 84484; 85007; 85025; 85027; 85379; 85610; 85730; 86141; 87040; 87081; 87088; 87636; 93005; 94640; 94664; 96374; 96375

== ENCOUNTER 2021-04-29 10:49 | Emergency (ER) | payer MEDICARE, MEDICAID ==
[~2021-04-29] VITALS: Ht 172.7 cm; Wt 98.6 kg
[~2021-04-29 10:49] MED LIST changes: +MAGN400T39 PO; +MILRINONE; +MILRINONE IV; +MTP25TSR PO; +RANO10005 PO; +SULF1TAB38 PO
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
[2021-04-29] MEDS ORDERED: HYDROmorphone (DILAUDID) 4 MG TAB PO ONE (11:45)
[2021-04-29 11:58] LABS: BASOPHILS % (AUTO) 0 % (0-10); EOSINOPHILS # (AUTO) 0.3 10^3/uL (0.0-0.3); EOSINOPHILS % (AUTO) 3 % (0-10); HEMATOCRIT 33 % (40-54); LYMPHOCYTES # (AUTO) 0.6 10^3/uL (1.0-4.0); LYMPHOCYTES % (AUTO) 6 % (12-44); MEAN CORPUSCULAR HEMOGLOBIN 26 pg (25-34); MEAN CORPUSCULAR HGB CONC 31 g/dL (32-36); MEAN CORPUSCULAR VOLUME 85 fL (80-99); MEAN PLATELET VOLUME 9.3 fL (9.0-12.2); MONOCYTES # (AUTO) 0.6 10^3/uL (0.0-1.0); MONOCYTES % (AUTO) 6 % (0-12); NEUTROPHILS # (AUTO) 8.1 10^3/uL (1.8-7.8); NEUTROPHILS % (AUTO) 83 % (42-75); PLATELET COUNT 297 10^3/uL (130-400); WHITE BLOOD COUNT 9.7 10^3/uL (4.3-11.0)
[2021-04-29 12:08] LABS: CALCIUM 9.8 MG/DL (8.5-10.1)
[2021-04-29 12:12] LABS: CREATININE SERUM 1.62 MG/DL (0.60-1.30)
[2021-04-29 12:21] LABS: ANISOCYTOSIS SLIGHT; EOSINOPHILS % (MANUAL) 3 %; HYPOCHROMASIA SLIGHT; LYMPHOCYTES % (MANUAL) 6 %; MICROCYTOSIS SLIGHT; MONOCYTES % (MANUAL) 3 %; NEUTROPHILS % (MANUAL) 88 %
--- NOTE | 2021-04-29 12:31 | Diagnostic Imaging Report ---
INDICATION: CHF. Shortness of air. Weakness. COMPARISON: 04/21/2021 FINDINGS: Single frontal radiograph view of the chest was obtained and demonstrate mild cardiomegaly and pulmonary vascular congestion. Lungs show diffuse prominence interstitium with some scattered patchy airspace opacities as well. There is no large effusion or pneumothorax. Right-sided subclavian central venous catheters are noted, as is left-sided AICD. Osseous structures show no gross acute abnormalities. IMPRESSION: 1. Moderate cardiomegaly with sequela CHF including probable mixed interstitial and alveolar pulmonary edema. Dictated by: Dictated on workstation # [id number]
[2021-04-29 13:11] VITALS: BP 130/79
== END 2021-04-29 13:10 | disposition home or self-care (01) ==
LOC: ER 10:50 → EDUNIT# 10:53 → ER 13:10
DX: I11.0 Hypertensive heart disease with heart failure (principal); I50.9 Heart failure, unspecified; G47.30 Sleep apnea, unspecified; F41.9 Anxiety disorder, unspecified; E78.00 Pure hypercholesterolemia, unspecified; I25.10 Atherosclerotic heart disease of native coronary artery without angina pectoris; K21.9 Gastro-esophageal reflux disease without esophagitis; E11.9 Type 2 diabetes mellitus without complications; Z95.9 Presence of cardiac and vascular implant and graft, unspecified; Z86.73 Personal history of transient ischemic attack (TIA), and cerebral infarction without residual deficits; Z79.82 Long term (current) use of aspirin; Z79.4 Long term (current) use of insulin; Z79.52 Long term (current) use of systemic steroids; Z79.899 Other long term (current) drug therapy
CPT/HCPCS: 36415; 71045; 80048; 83880; 85007; 85027; 93005

== ENCOUNTER 2021-05-14 14:49 | Emergency (ER) | payer MEDICARE, MEDICAID ==
[~2021-05-14] VITALS: Ht 172.7 cm; Wt 98.6 kg
--- NOTE | 2021-05-14 15:21 | Diagnostic Imaging Report ---
INDICATION: Shortness of breath. COMPARISON: 04/29/2021. TECHNIQUE: Single radiograph of the chest dated 05/14/2021. FINDINGS: Pacer device is again seen with a battery pack overlying the left chest. Right IJ central venous catheter is stable. The cardiac silhouette is enlarged. Mild central pulmonary vascular congestion is present, though improved from the prior examination. Minimal prominence of the pulmonary interstitium, though improved from the prior exam. Minimal persisting right basilar interstitial opacities are present. No new focal pulmonary opacity. No significant pleural effusion. No pneumothorax. Chronic right-sided rib fractures. No new acute osseous abnormality. IMPRESSION: 1. Persistent cardiomegaly with improved though persistent minimal central pulmonary vascular congestion. 2. Improved interstitial opacities felt to relate to improving interstitial edema. Minimal persisting interstitial edema within the right lung base may be present. 3. No significant pleural effusion. Dictated by: Dictated on workstation # [id number]
[2021-05-14 15:40] LABS: POTASSIUM 5.2 MMOL/L (3.6-5.0)
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
[2021-05-14 15:41] LABS: CALCIUM 9.4 MG/DL (8.5-10.1)
[2021-05-14 15:42] LABS: TOTAL PROTEIN 7.2 GM/DL (6.4-8.2)
[2021-05-14 15:43] LABS: BASOPHILS % (AUTO) 0 % (0-10); EOSINOPHILS # (AUTO) 0.1 10^3/uL (0.0-0.3); EOSINOPHILS % (AUTO) 1 % (0-10); HEMATOCRIT 30 % (40-54); HEMOGLOBIN 9.3 g/dL (13.3-17.7); LYMPHOCYTES # (AUTO) 0.5 X 10^3 (1.0-4.0); LYMPHOCYTES % (AUTO) 6 % (12-44); MEAN CORPUSCULAR HEMOGLOBIN 26 pg (25-34); MEAN CORPUSCULAR HGB CONC 31 g/dL (32-36); MEAN CORPUSCULAR VOLUME 86 fL (80-99); MEAN PLATELET VOLUME 9.8 fL (9.0-12.2); MONOCYTES # (AUTO) 0.4 X 10^3 (0.0-1.0); MONOCYTES % (AUTO) 5 % (0-12); NEUTROPHILS # (AUTO) 7.6 X 10^3 (1.8-7.8); NEUTROPHILS % (AUTO) 88 % (42-75); PLATELET COUNT 297 10^3/uL (130-400); WHITE BLOOD COUNT 8.6 10^3/uL (4.3-11.0)
[2021-05-14 15:44] LABS: BILIRUBIN,TOTAL 0.5 MG/DL (0.1-1.0)
[2021-05-14] MEDS ORDERED: BUMETANIDE 1 MG/4 ML (BUMEX) VIAL IV ONE (15:45)
[2021-05-14 15:46] LABS: CREATININE SERUM 2.04 MG/DL (0.60-1.30)
[2021-05-14 16:12] LABS: ANISOCYTOSIS SLIGHT; BAND NEUTROPHILS 0 %; BASOPHILS % (MANUAL) 0 %; EOSINOPHILS % (MANUAL) 0 %; LYMPHOCYTES % (MANUAL) 4 %; MONOCYTES % (MANUAL) 6 %; NEUTROPHILS % (MANUAL) 90 %; POLYCHROMASIA SLIGHT
[2021-05-14 16:28] LABS: INR 1.1 (0.8-1.4); PROTHROMBIN TIME PATIENT 14.2 SEC (12.2-14.7)
[2021-05-14 21:33] VITALS: BP 123/53
== END 2021-05-14 21:33 | disposition short-term general hospital (02) ==
LOC: EDUNIT# 14:49 → ER 14:50
DX: I11.0 Hypertensive heart disease with heart failure (principal); I50.9 Heart failure, unspecified; I21.4 Non-ST elevation (NSTEMI) myocardial infarction; G70.00 Myasthenia gravis without (acute) exacerbation; E78.00 Pure hypercholesterolemia, unspecified; I25.10 Atherosclerotic heart disease of native coronary artery without angina pectoris; G47.30 Sleep apnea, unspecified; K21.9 Gastro-esophageal reflux disease without esophagitis; E11.9 Type 2 diabetes mellitus without complications; F41.9 Anxiety disorder, unspecified; Z20.822 Contact with and (suspected) exposure to COVID-19; Z86.73 Personal history of transient ischemic attack (TIA), and cerebral infarction without residual deficits; Z79.82 Long term (current) use of aspirin; Z79.4 Long term (current) use of insulin; Z79.899 Other long term (current) drug therapy; Z79.52 Long term (current) use of systemic steroids
CPT/HCPCS: 36415; 36556; 71045; 80053; 83880; 84484; 85007; 85027; 85610; 87636; 93005; 93041

== ENCOUNTER 2021-06-20 10:41 | Emergency (ER) | payer MEDICARE, MEDICAID ==
[~2021-06-20] VITALS: Ht 172.7 cm; Wt 93.6 kg
[~2021-06-20 10:41] MED LIST changes: -DOXY100C2 PO; +DOXY100C5 PO
[2021-06-20 11:09] LABS: BASOPHILS % (AUTO) 0 % (0-10); EOSINOPHILS # (AUTO) 0.3 10^3/uL (0.0-0.3); EOSINOPHILS % (AUTO) 3 % (0-10); HEMATOCRIT 32 % (40-54); HEMOGLOBIN 9.7 g/dL (13.3-17.7); LYMPHOCYTES # (AUTO) 1.2 10^3/uL (1.0-4.0); LYMPHOCYTES % (AUTO) 13 % (12-44); MEAN CORPUSCULAR HEMOGLOBIN 23 pg (25-34); MEAN CORPUSCULAR HGB CONC 30 g/dL (32-36); MEAN CORPUSCULAR VOLUME 77 fL (80-99); MEAN PLATELET VOLUME 9.4 fL (9.0-12.2); MONOCYTES # (AUTO) 0.8 10^3/uL (0.0-1.0); MONOCYTES % (AUTO) 9 % (0-12); NEUTROPHILS # (AUTO) 6.7 10^3/uL (1.8-7.8); NEUTROPHILS % (AUTO) 74 % (42-75); PLATELET COUNT 367 10^3/uL (130-400); WHITE BLOOD COUNT 9.1 10^3/uL (4.3-11.0)
[2021-06-20] MEDS ORDERED: HYDROmorphone 2 MG/ML VIAL (DILAUDID) IV ONE ×3 (11:15→14:45)
[2021-06-20 11:20] LABS: ALBUMIN 3.9 GM/DL (3.2-4.5); POTASSIUM 4.5 MMOL/L (3.6-5.0)
[2021-06-20 11:21] LABS: CALCIUM 9.9 MG/DL (8.5-10.1); INR 1.1 (0.8-1.4); PROTHROMBIN TIME PATIENT 14.1 SEC (12.2-14.7)
[2021-06-20 11:23] LABS: TOTAL PROTEIN 8.2 GM/DL (6.4-8.2)
[2021-06-20 11:24] LABS: BILIRUBIN,TOTAL 0.4 MG/DL (0.1-1.0)
[2021-06-20 11:26] LABS: CREATININE SERUM 2.39 MG/DL (0.60-1.30)
[2021-06-20 12:11] LABS: BILIRUBIN,URINE NEGATIVE (NEGATIVE); CLARITY,URINE CLEAR; COLOR,URINE YELLOW; GLUCOSE, URINE (UA) 1+ (NEGATIVE); KETONES,URINE NEGATIVE (NEGATIVE); LEUKOCYTE ESTERASE ,URINE NEGATIVE (NEGATIVE); NITRITE,URINE NEGATIVE (NEGATIVE); PROTEIN,URINE TRACE (NEGATIVE)
[2021-06-20 12:25] LABS: BACTERIA,URINE NEGATIVE /HPF
--- NOTE | 2021-06-20 12:26 | Diagnostic Imaging Report ---
CLINICAL INDICATION: Patient with chest pain. EXAM: Portable chest x-ray upright view. COMPARISONS: Chest x-ray dated 05/14/2021. FINDINGS: Central line is again seen overlying the right chest region. Lungs/pleura: There is improved aeration of both lung bases with residual mild right basilar atelectasis versus infiltrate. There is no pneumothorax. There is no pleural effusion. Mediastinum: Unremarkable. Pulmonary vasculature: Pulmonary vasculature is now within normal limits. Heart: Stable cardiomegaly. Again noted cardiac pacemaker/AICD overlying the chest. Bones/extrathoracic soft tissue: Unremarkable. IMPRESSION: 1: There is improved aeration of both lung bases with residual mild right basilar atelectasis versus infiltrate. 2: There is stable cardiomegaly with resolution of previously seen mild pulmonary vascular congestion. 3: The remainder of this exam shows no significant interval change compared to the prior study of comparison. Dictated by: Dictated on workstation # [id number]
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
[2021-06-20 14:59] VITALS: BP 132/76
== END 2021-06-20 15:04 | disposition home or self-care (01) ==
LOC: EDUNIT# 10:41 → ER 10:43
DX: I42.9 Cardiomyopathy, unspecified (principal); I25.10 Atherosclerotic heart disease of native coronary artery without angina pectoris; G47.30 Sleep apnea, unspecified; K21.9 Gastro-esophageal reflux disease without esophagitis; E78.00 Pure hypercholesterolemia, unspecified; E11.9 Type 2 diabetes mellitus without complications; F41.9 Anxiety disorder, unspecified; Z95.5 Presence of coronary angioplasty implant and graft; Z95.0 Presence of cardiac pacemaker; Z95.9 Presence of cardiac and vascular implant and graft, unspecified; Z20.822 Contact with and (suspected) exposure to COVID-19; Z86.73 Personal history of transient ischemic attack (TIA), and cerebral infarction without residual deficits; Z79.82 Long term (current) use of aspirin; Z79.899 Other long term (current) drug therapy; Z79.4 Long term (current) use of insulin
CPT/HCPCS: 36415; 71045; 80053; 81000; 83605; 83735; 83874; 83880; 84484; 85025; 85610; 85730; 86141; 87040; 87088; 87636; 93005; 93041

== ENCOUNTER 2021-06-23 08:28 | Emergency (ER) | payer MEDICARE, MEDICAID ==
[~2021-06-23] VITALS: Ht 172 cm; Wt 94.8 kg
[2021-06-23 08:54] LABS: BASOPHILS % (AUTO) 0 % (0-10); EOSINOPHILS # (AUTO) 0.3 10^3/uL (0.0-0.3); EOSINOPHILS % (AUTO) 2 % (0-10); HEMATOCRIT 31 % (40-54); LYMPHOCYTES # (AUTO) 1.1 10^3/uL (1.0-4.0); LYMPHOCYTES % (AUTO) 8 % (12-44); MEAN CORPUSCULAR HEMOGLOBIN 23 pg (25-34); MEAN CORPUSCULAR HGB CONC 29 g/dL (32-36); MEAN CORPUSCULAR VOLUME 77 fL (80-99); MONOCYTES # (AUTO) 1.1 10^3/uL (0.0-1.0); MONOCYTES % (AUTO) 9 % (0-12); NEUTROPHILS # (AUTO) 10.6 10^3/uL (1.8-7.8); NEUTROPHILS % (AUTO) 81 % (42-75); PLATELET COUNT 283 10^3/uL (130-400); WHITE BLOOD COUNT 13.1 10^3/uL (4.3-11.0)
[2021-06-23 09:01] LABS: BILIRUBIN,URINE NEGATIVE (NEGATIVE); CLARITY,URINE CLEAR; COLOR,URINE YELLOW; GLUCOSE, URINE (UA) NEGATIVE (NEGATIVE); KETONES,URINE NEGATIVE (NEGATIVE); LEUKOCYTE ESTERASE ,URINE NEGATIVE (NEGATIVE); NITRITE,URINE NEGATIVE (NEGATIVE); PROTEIN,URINE TRACE (NEGATIVE)
[2021-06-23 09:03] LABS: ALBUMIN 3.7 GM/DL (3.2-4.5); POTASSIUM 4.2 MMOL/L (3.6-5.0)
[2021-06-23 09:04] LABS: CALCIUM 9.4 MG/DL (8.5-10.1)
[2021-06-23 09:05] LABS: PROTHROMBIN TIME PATIENT 13.4 SEC (12.2-14.7)
[2021-06-23 09:06] LABS: TOTAL PROTEIN 7.3 GM/DL (6.4-8.2)
[2021-06-23 09:07] LABS: BILIRUBIN,TOTAL 0.5 MG/DL (0.1-1.0)
[2021-06-23 09:09] LABS: CREATININE SERUM 2.17 MG/DL (0.60-1.30)
[2021-06-23 09:22] LABS: BACTERIA,URINE NEGATIVE /HPF; WBC,URINE RARE /HPF
--- NOTE | 2021-06-23 09:56 | Diagnostic Imaging Report ---
EXAMINATION: Chest radiograph, portable AP view. DATE: 06/23/2021 9:41 AM INDICATION: 65-year-old male, sepsis. COMPARISON: June 20, 2021. FINDINGS: There is a left-sided cardiac assist device with leads. There are right-sided lines. Heart size and mediastinal contours are unchanged. There are low lung volumes. There is no identified pneumothorax. There is new airspace consolidation in the right midlung and right perihilar region. There are lucencies in the right perihilar region which could relate to cavitary changes or aerated bronchi surrounded by consolidation. IMPRESSION: 1. Right mid lung zone consolidation and perihilar opacities with areas of lucency which may relate to air bronchograms or early cavitary changes. 2. There are other alveolar consolidative process is considered. Dictated by: Dictated on workstation # [id number]
[2021-06-23 10:00] LABS: MAGNESIUM 1.7 MG/DL (1.6-2.4)
[2021-06-23] MEDS ORDERED: HYDROmorphone 2 MG/ML VIAL (DILAUDID) IV ONE ×2 (10:30→11:45)
--- NOTE | 2021-06-23 10:47 | Diagnostic Imaging Report ---
PROCEDURE: CT chest without contrast. TECHNIQUE: Multiple contiguous axial images were obtained through the chest without the use of intravenous contrast. Auto Exposure Controls were utilized during the CT exam to meet ALARA standards for radiation dose reduction. DATE: June 23, 2021. COMPARISON: CT chest February 15, 2021. INDICATION: 65-year-old male, chest pain and shortness of breath. Hypoxia. PROCEDURE: Axial noncontrasted CT images of the chest. Noncontrasted limits the evaluation of the mediastinum and vascular structures. FINDINGS: There is airspace consolidation in the right upper lobe with air bronchograms. This consolidation is respecting the boundary of the right major fissure. There is no identified pulmonary nodule or lung mass. There is no additional focal airspace consolidation. There is no pneumothorax. There is no pleural effusion. The right upper lobe consolidation is new since February 15, 2021. There are coronary artery calcifications and additional areas of atherosclerotic disease. The heart is not grossly enlarged. There is no pericardial effusion. There is a right paratracheal lymph node on axial image 41 measuring 11 mm in short axis. There are additional abnormally prominent right paratracheal lymph nodes. There is no abnormally enlarged axillary lymph node which meets CT size criteria for adenopathy. There is a low-attenuation right thyroid nodule measuring 11 mm in size. The imaged portions of the upper abdomen are unremarkable. There are multilevel degenerative changes of the spine. There are chronic appearing right rib deformities. There is no identified acute bony abnormality. IMPRESSION: 1. Right upper lobe airspace consolidation concerning for pneumonia. Recommend correlation clinically and ensure follow-up to resolution. 2. Abnormally enlarged right paratracheal lymph nodes which are likely reactive. Dictated by: Dictated on workstation # [id number]
[2021-06-23] MEDS ORDERED: cefTRIAXone 1,000 MG in WATER (STERILE) FOR INJECTION 10 ML IV ONE (11:30)
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
[2021-06-23] MEDS ORDERED: DOXY100T2 PO (12:18)
[2021-06-23] MEDS ORDERED: CEFD300C3 PO (12:18)
[2021-06-23 12:22] VITALS: BP 118/70
== END 2021-06-23 12:22 | disposition home or self-care (01) ==
LOC: EDUNIT# 08:28 → ER 08:29
DX: J18.1 Lobar pneumonia, unspecified organism (principal); I42.9 Cardiomyopathy, unspecified; I12.9 Hypertensive chronic kidney disease with stage 1 through stage 4 chronic kidney disease, or unspecified chronic kidney disease; E11.22 Type 2 diabetes mellitus with diabetic chronic kidney disease; N18.9 Chronic kidney disease, unspecified; R00.0 Tachycardia, unspecified; G47.30 Sleep apnea, unspecified; I25.10 Atherosclerotic heart disease of native coronary artery without angina pectoris; E78.00 Pure hypercholesterolemia, unspecified; K21.9 Gastro-esophageal reflux disease without esophagitis; F41.9 Anxiety disorder, unspecified; Z95.9 Presence of cardiac and vascular implant and graft, unspecified; Z95.5 Presence of coronary angioplasty implant and graft; Z86.73 Personal history of transient ischemic attack (TIA), and cerebral infarction without residual deficits; Z20.822 Contact with and (suspected) exposure to COVID-19; Z79.4 Long term (current) use of insulin; Z79.899 Other long term (current) drug therapy; Z79.82 Long term (current) use of aspirin
CPT/HCPCS: 36415; 71045; 71250; 80053; 81000; 83605; 83735; 83874; 83880; 84145; 84484; 85025; 85610; 85730; 86141; 87040; 87081; 87088; 87636; 93005; 93041

== ENCOUNTER 2021-07-01 14:00 | Emergency (ER) | payer MEDICARE, MEDICAID ==
[~2021-07-01] VITALS: Ht 172 cm; Wt 94.8 kg
[~2021-07-01 14:00] MED LIST changes: +CEFD300C3 PO; +DOXY100T2 PO
[2021-07-01] MEDS ORDERED: VANCOMYCIN INJECTION 2,000 MG in NS IV 500 ML 500 ML IV ONE (14:08)
[2021-07-01] MEDS ORDERED: CEFEPIME INJECTION 1,000 MG in WATER (STERILE) FOR INJECTION 10 ML IV ONE (14:15)
[2021-07-01] MEDS ORDERED: NS IV 500 ML 500 ML IV ONE ×2 (14:15→15:30)
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
[2021-07-01 14:23] LABS: BASOPHILS % (AUTO) 0 % (0-10); EOSINOPHILS # (AUTO) 0.3 10^3/uL (0.0-0.3); EOSINOPHILS % (AUTO) 4 % (0-10); HEMATOCRIT 31 % (40-54); HEMOGLOBIN 9.4 g/dL (13.3-17.7); LYMPHOCYTES # (AUTO) 1.8 10^3/uL (1.0-4.0); LYMPHOCYTES % (AUTO) 19 % (12-44); MEAN CORPUSCULAR HEMOGLOBIN 23 pg (25-34); MEAN CORPUSCULAR HGB CONC 30 g/dL (32-36); MEAN CORPUSCULAR VOLUME 76 fL (80-99); MEAN PLATELET VOLUME 9.2 fL (9.0-12.2); MONOCYTES # (AUTO) 0.8 10^3/uL (0.0-1.0); MONOCYTES % (AUTO) 9 % (0-12); NEUTROPHILS # (AUTO) 6.3 10^3/uL (1.8-7.8); NEUTROPHILS % (AUTO) 68 % (42-75); PLATELET COUNT 315 10^3/uL (130-400); WHITE BLOOD COUNT 9.3 10^3/uL (4.3-11.0)
[2021-07-01 14:38] LABS: ALBUMIN 3.8 GM/DL (3.2-4.5); INR 1.1 (0.8-1.4); POTASSIUM 4.1 MMOL/L (3.6-5.0); PROTHROMBIN TIME PATIENT 14.4 SEC (12.2-14.7)
[2021-07-01 14:40] LABS: CALCIUM 9.6 MG/DL (8.5-10.1)
[2021-07-01 14:41] LABS: TOTAL PROTEIN 7.2 GM/DL (6.4-8.2)
[2021-07-01 14:43] LABS: BILIRUBIN,TOTAL 0.5 MG/DL (0.1-1.0)
[2021-07-01 14:45] LABS: CREATININE SERUM 1.88 MG/DL (0.60-1.30)
--- NOTE | 2021-07-01 15:08 | Diagnostic Imaging Report ---
INDICATION: Weakness. Lower back pain. COMPARISON: CT chest dated 06/23/2021. FINDINGS: Single frontal radiographic view of the chest was obtained and demonstrates persistent mild cardiomegaly. Pulmonary vasculature however is within normal limits. Since the previous exam, there has been significant interval improved aeration of the right lung. Some residual patchy airspace disease persists. No large effusion or pneumothorax is seen on either side. Left-sided AICD is noted. Right upper extremity PICC line and right subclavian Port-A-Cath are also identified. Tips are heavily obscured, but extend at least into the SVC. IMPRESSION: 1. Significant interval improved aeration of the right lung. 2. Mild cardiomegaly. 3. Right upper extremity PICC line and right subclavian Port-A-Cath as above. Dictated by: Dictated on workstation # [id number]
[2021-07-01 16:28] LABS: BILIRUBIN,URINE NEGATIVE (NEGATIVE); CLARITY,URINE CLEAR; COLOR,URINE YELLOW; GLUCOSE, URINE (UA) TRACE (NEGATIVE); KETONES,URINE NEGATIVE (NEGATIVE); LEUKOCYTE ESTERASE ,URINE NEGATIVE (NEGATIVE); NITRITE,URINE NEGATIVE (NEGATIVE); PROTEIN,URINE NEGATIVE (NEGATIVE)
[2021-07-01 16:34] LABS: BACTERIA,URINE NEGATIVE /HPF
[2021-07-01] MEDS ORDERED: HYDROmorphone 2 MG/ML VIAL (DILAUDID) IV ONE (17:00)
[2021-07-01] MEDS ORDERED: FUROSEMIDE 40 MG (LASIX) TAB PO ONE (17:00)
[2021-07-01 18:25] VITALS: BP 148/74
[2021-07-03] MEDS ORDERED: DIPH25TA65 PO (10:32)
[2021-07-03] MEDS ORDERED: ISOS60TA63 PO (10:32)
[2021-07-03] MEDS ORDERED: FURO80TA3 PO (10:32)
[2021-07-03] MEDS ORDERED: PYRI60TA PO (10:32)
[2021-07-03] MEDS ORDERED: POTA10TA PO ×2 (10:32)
[2021-07-03] MEDS ORDERED: HYDR4TAB PO (10:32)
[2021-07-03] MEDS ORDERED: METO5TAB6 PO (10:32)
[2021-07-03] MEDS ORDERED: [UNRECOGNIZED DRUG - CODE] IV (10:32)
[2021-07-03] MEDS ORDERED: PENI500T PO (10:32)
[2021-07-03] MEDS ORDERED: SPIR25TA5 PO (10:32)
[2021-07-03] MEDS ORDERED: CEFD300C3 PO (10:32)
[2021-07-03] MEDS ORDERED: PRED10TA22 PO (11:09)
== END 2021-07-01 18:27 | disposition home or self-care (01) ==
LOC: EDUNIT# 14:05 → ER 14:06
DX: J18.1 Lobar pneumonia, unspecified organism (principal); G47.30 Sleep apnea, unspecified; I10 Essential (primary) hypertension; E78.00 Pure hypercholesterolemia, unspecified; I25.10 Atherosclerotic heart disease of native coronary artery without angina pectoris; K21.9 Gastro-esophageal reflux disease without esophagitis; F41.9 Anxiety disorder, unspecified; E11.9 Type 2 diabetes mellitus without complications; Z20.822 Contact with and (suspected) exposure to COVID-19; Z86.73 Personal history of transient ischemic attack (TIA), and cerebral infarction without residual deficits; Z79.82 Long term (current) use of aspirin; Z79.899 Other long term (current) drug therapy; Z79.52 Long term (current) use of systemic steroids; Z79.4 Long term (current) use of insulin
CPT/HCPCS: 36415; 71045; 80053; 81000; 83605; 83880; 84145; 84484; 85025; 85610; 85730; 86141; 87040; 87088; 87636; 93005

== ENCOUNTER 2021-07-02 10:11 | Observation (INO) | payer MEDICARE, MEDICAID ==
[2021-07-02] VITALS (7 sets, daily range): BP systolic 103–149; BP diastolic 50–88
[~2021-07-02] VITALS: Ht 172.7 cm; Wt 96.4 kg
[2021-07-02] MEDS ORDERED: PYRIDOSTIGMINE 60 MG TAB (MESTINON) NON-FORMULARY PO ONE (10:30)
[2021-07-02] MEDS ORDERED: HYDROmorphone 2 MG/ML VIAL (DILAUDID) IV ONE ×2 (10:45→14:00)
[2021-07-02] MEDS ORDERED: methylPREDNISolone 125 MG (Solu-MEDROL) VIAL IVP ONE (10:45)
[2021-07-02] MEDS ORDERED: ALTEPLASE 2 MG (CATHFLO) IV ONE (11:00)
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
[2021-07-02 11:13] LABS: BASOPHILS % (AUTO) 0 % (0-10); EOSINOPHILS # (AUTO) 0.1 10^3/uL (0.0-0.3); EOSINOPHILS % (AUTO) 1 % (0-10); HEMATOCRIT 30 % (40-54); HEMOGLOBIN 8.9 g/dL (13.3-17.7); LYMPHOCYTES # (AUTO) 0.9 10^3/uL (1.0-4.0); LYMPHOCYTES % (AUTO) 8 % (12-44); MEAN CORPUSCULAR HEMOGLOBIN 22 pg (25-34); MEAN CORPUSCULAR HGB CONC 30 g/dL (32-36); MEAN CORPUSCULAR VOLUME 75 fL (80-99); MEAN PLATELET VOLUME 9.4 fL (9.0-12.2); MONOCYTES # (AUTO) 0.7 10^3/uL (0.0-1.0); MONOCYTES % (AUTO) 6 % (0-12); NEUTROPHILS # (AUTO) 9.1 10^3/uL (1.8-7.8); NEUTROPHILS % (AUTO) 83 % (42-75); PLATELET COUNT 280 10^3/uL (130-400); WHITE BLOOD COUNT 10.9 10^3/uL (4.3-11.0)
[2021-07-02 11:24] LABS: INR 1.1 (0.8-1.4); PROTHROMBIN TIME PATIENT 14.4 SEC (12.2-14.7)
[2021-07-02 11:28] LABS: ALBUMIN 3.7 GM/DL (3.2-4.5)
[2021-07-02 11:29] LABS: POTASSIUM 4.1 MMOL/L (3.6-5.0)
[2021-07-02 11:30] LABS: CALCIUM 9.5 MG/DL (8.5-10.1)
[2021-07-02 11:33] LABS: BILIRUBIN,TOTAL 0.5 MG/DL (0.1-1.0)
[2021-07-02 11:34] LABS: CREATININE SERUM 1.56 MG/DL (0.60-1.30)
[2021-07-02 11:37] LABS: MAGNESIUM 1.6 MG/DL (1.6-2.4)
[2021-07-02 11:37] LABS: BILIRUBIN,URINE NEGATIVE (NEGATIVE); CLARITY,URINE CLEAR; COLOR,URINE YELLOW; GLUCOSE, URINE (UA) NEGATIVE (NEGATIVE); KETONES,URINE NEGATIVE (NEGATIVE); LEUKOCYTE ESTERASE ,URINE NEGATIVE (NEGATIVE); NITRITE,URINE NEGATIVE (NEGATIVE); PROTEIN,URINE TRACE (NEGATIVE)
[2021-07-02 11:52] LABS: BACTERIA,URINE NEGATIVE /HPF
--- NOTE | 2021-07-02 13:03 | Diagnostic Imaging Report ---
INDICATION: Sepsis. Pneumonia. Comparison with 07/01/2021. FINDINGS: There continues to be cardiomegaly with pacemaker on the left and Port-A-Cath on the right. The both lungs are well aerated. The there has been continued clearing of the dense consolidated infiltrate right lower lobe. Mild infiltrate remains. There is a suspicion of 2 pulmonary nodules in the right lower lobe measuring approximately 1.5 cm. These do appear to contain some calcification. IMPRESSION: 1. Continued improvement with clearing of right lower lung. There are persistent nodular densities overlying the right lower lung. These were not appreciated on previous CT scan of 06/23/2001. These may been obscured by infiltrates. Dictated by: Dictated on workstation # [id number]
[2021-07-02] MEDS ORDERED: NS IV 1000 ML 1,000 ML IV ONE (14:00)
[2021-07-02] MEDS ORDERED: NON-FORMULARY MEDICATION 1 EA EA PO ONE (14:30)
[2021-07-02] MEDS ORDERED: cefTRIAXone 1,000 MG in WATER (STERILE) FOR INJECTION 10 ML IV ONE (14:30)
[2021-07-02] MEDS ORDERED: NS IV 1000 ML 1,000 ML IV SCH (16:15)
[2021-07-02] MEDS ORDERED: DOXYCYCLINE INJECTION 100 MG in NS (IVPB) 100 ML IV NR (16:15)
[2021-07-02] MEDS: HYDROmorphone 2 MG/ML VIAL (DILAUDID) IV PRN ×4 (16:24→23:03)
[2021-07-02] MEDS: PYRIDOSTIGMINE 60 MG TAB (MESTINON) NON-FORMULARY PO SCH ×2 (18:19→23:52)
[2021-07-02] MEDS ORDERED: ANTACID SUSP 30 ML UDC (MYLANTA) PO PRN (19:00)
[2021-07-02] MEDS ORDERED: PATIENT MAY USE OWN MEDS, ALL PO SCH (19:00)
[2021-07-02] MEDS ORDERED: ONDANSETRON 4 MG (ZOFRAN) ORAL DISSOLVE TAB PO PRN (19:00)
[2021-07-02] MEDS ORDERED: polyethylene glycoL POWDER 17 GM (MIRALAX) PACK PO PRN (19:00)
[2021-07-02] MEDS ORDERED: ONDANSETRON 4 MG/2 ML (SDV) Z0FRAN IV PRN (19:00)
[2021-07-02] MEDS ORDERED: MELATONIN 3 MG TABLET PO PRN (19:00)
[2021-07-02] MEDS ORDERED: diphenhydrAMINE 25 MG TAB (BENADRYL) PO PRN (19:00)
[2021-07-02] MEDS ORDERED: ACETAMINOPHEN 325 MG TABLET PO PRN (19:00)
[2021-07-02] MEDS: RT-ALBUTEROL SULF 2.5 MG/3 ML PRE-MIX VIAL INH SCH (19:06)
--- NOTE | 2021-07-02 19:56 | Progress Note ---
Progress Note RN called me due to patient's report of chest pain. I am familiar with this patient with myasthenia gravis and end stage CHF and inoperable CAD managed at but they could not take the patient due to diversion and at capacity. I reviewed the case with Dr Hanson and the decision was made to move him to ICU and continue all orders. Reviewed all meds and will monitor closely. EVERARDO MARQUIS DO Jul 02, 2021 19:56
[2021-07-02] MEDS: MAGNESIUM 1 GM/100 ML IVPB 100 ML IV SCH ×2 (20:58→21:43)
[2021-07-02] MEDS: SACUBITRIL/VALSARTAN 24/26 MG (ENTRESTO) TABLET PO SCH (21:42)
[2021-07-02] MEDS: ISOSORBIDE MONONITRATE 60 MG (IMDUR) TAB PO SCH (21:42)
[2021-07-02] MEDS: RANOLAZINE ER 500 MG TAB (RANEXA) PO SCH (21:42)
[2021-07-02] MEDS: PANTOPRAZOLE 40 MG (PROTONIX) TAB PO SCH (21:42)
[2021-07-02] MEDS: inSUlin ASPART (NovoLOG) 1 UNIT/0.01 ML (CHARGE PER UNIT) SC SCH (21:55)
[2021-07-03] VITALS (23 sets, daily range): BP systolic 85–127; BP diastolic 48–78
[2021-07-03] MEDS: inSUlin ASPART (NovoLOG) 1 UNIT/0.01 ML (CHARGE PER UNIT) SC SCH ×7 (00:01→20:21)
[2021-07-03] MEDS ORDERED: inSUlin ASPART (NovoLOG) 1 UNIT/0.01 ML (CHARGE PER UNIT) SC ONE (00:30)
[2021-07-03] MEDS: HYDROmorphone 2 MG/ML VIAL (DILAUDID) IV PRN ×7 (03:08→23:50)
[2021-07-03 04:26] LABS: BASOPHILS % (AUTO) 0 % (0-10); EOSINOPHILS % (AUTO) 0 % (0-10); HEMATOCRIT 31 % (40-54); HEMOGLOBIN 9.1 g/dL (13.3-17.7); LYMPHOCYTES # (AUTO) 0.6 10^3/uL (1.0-4.0); LYMPHOCYTES % (AUTO) 5 % (12-44); MEAN CORPUSCULAR HEMOGLOBIN 23 pg (25-34); MEAN CORPUSCULAR HGB CONC 30 g/dL (32-36); MEAN CORPUSCULAR VOLUME 77 fL (80-99); MEAN PLATELET VOLUME 9.6 fL (9.0-12.2); MONOCYTES # (AUTO) 0.9 10^3/uL (0.0-1.0); MONOCYTES % (AUTO) 8 % (0-12); NEUTROPHILS # (AUTO) 10.5 10^3/uL (1.8-7.8); NEUTROPHILS % (AUTO) 86 % (42-75); PLATELET COUNT 317 10^3/uL (130-400); WHITE BLOOD COUNT 12.1 10^3/uL (4.3-11.0)
[2021-07-03 05:08] LABS: LYMPHOCYTES % (MANUAL) 5 %; MONOCYTES % (MANUAL) 3 %; NEUTROPHILS % (MANUAL) 92 %
[2021-07-03 05:09] LABS: HYPOCHROMASIA MODERATE; MICROCYTOSIS MODERATE
[2021-07-03 05:18] LABS: POTASSIUM 4.9 MMOL/L (3.6-5.0)
[2021-07-03 05:19] LABS: ALBUMIN 3.5 GM/DL (3.2-4.5)
[2021-07-03 05:20] LABS: CALCIUM 9.3 MG/DL (8.5-10.1)
[2021-07-03 05:21] LABS: TOTAL PROTEIN 6.7 GM/DL (6.4-8.2)
[2021-07-03 05:23] LABS: BILIRUBIN,TOTAL 0.4 MG/DL (0.1-1.0)
[2021-07-03] MEDS: POTASSIUM CL 10MEQ/50ML IVPB 50 ML IV SCH (05:23)
[2021-07-03 05:24] LABS: PHOSPHORUS 3.6 MG/DL (2.3-4.7)
[2021-07-03 05:25] LABS: CREATININE SERUM 1.95 MG/DL (0.60-1.30)
[2021-07-03] MEDS: KCL 20 MEQ TAB (K-DUR) PO SCH (05:25)
[2021-07-03 05:28] LABS: MAGNESIUM 2.4 MG/DL (1.6-2.4)
[2021-07-03] MEDS: MAGNESIUM 1 GM/100 ML IVPB 100 ML IV SCH (05:32)
[2021-07-03] MEDS: PYRIDOSTIGMINE 60 MG TAB (MESTINON) NON-FORMULARY PO SCH ×3 (05:33→18:31)
[2021-07-03] MEDS: DOXYCYCLINE INJECTION 100 MG in NS (IVPB) 100 ML IV SCH ×2 (05:55→16:51)
--- NOTE | 2021-07-03 06:38 | Diagnostic Imaging Report ---
Indication: Pneumonia follow-up Portable chest shows cardiomegaly with normal vascularity. No infiltrates are evident on today's examination with improved aeration of the right lung base since 07/02/2021. There is no effusion or pneumothorax. IMPRESSION: Improving chest. Dictated by: Dictated on workstation # [id number]
[2021-07-03] MEDS: RT-ALBUTEROL SULF 2.5 MG/3 ML PRE-MIX VIAL INH SCH ×2 (07:01→21:23)
[2021-07-03] MEDS: SACUBITRIL/VALSARTAN 24/26 MG (ENTRESTO) TABLET PO SCH ×2 (07:49→20:21)
[2021-07-03] MEDS: PANTOPRAZOLE 40 MG (PROTONIX) TAB PO SCH ×2 (07:49→20:21)
[2021-07-03] MEDS: RANOLAZINE ER 500 MG TAB (RANEXA) PO SCH ×2 (07:49→20:21)
--- NOTE | 2021-07-03 08:33 | Tele-ICU Progress Note ---
Subjective Date Seen by a Provider: Jul 03, 2021 Time Seen by a Provider: 08:20 Subjective/Events-last exam This virtual visit was conducted using real time audio/video. Thank you for asking us to see this patient for ES CAD/CHF and Myasthenia Gravis, respiratory insufficiency and distress. HPC: Recent events: Increased BG PE: Obese. Resting comfortably. VSS O2 sat 98% on 2 L NC. HEENT: No obvious masses, adenopathy or JVD. Chest: clear to auscultation, but diminished CV: RRR S1 S2 No murmur or added sounds. Abd: Non-tender. Bowel sounds Y. : Unremarkable. Jarvis N. QUALITY ASSISTANT/psychiatric: Alert and oriented, grossly intact. No obvious focal findings. Extremities: Trace edema. Capillary refill < 3 seconds. Skin: unremarkable. Results: Elevated WCC 12.1, BUN 35, Creat 1.95, BG 463. Decreased Hb 9.1. CXR clear. A/P: Respiratory insufficiency/distress: better Available chart/ vitals / labs / images reviewed. Video assessment done using teleICU camera, rest of exam as per RN. Monitor for increasing oxygenation needs. Critical Care: critically ill patient. Cont imdur, Milrinone infusion, ranexa, mestinon, abx., albuterol. Discussed with PAUL Magaña. Asked RN to reach out to eICU if any questions or concerns later. Time spent with patient/coordination of care with other health professionals (mins): 20 Sepsis Event Evaluation Height, Weight, BMI Height: 5'8.00" Weight: 205lbs. 0.0oz. [id number]; 32.22 BMI Method:Stated Focused Exam Lactate Level 07/02/21 11:00: Lactic Acid Level 1.88 Exam Exam Patient acknowledged, consented, and participated in this virtual visit which w as conducted using real time audio/video Vital Signs Date Time Temp Pulse Resp B/P (MAP) Pulse Ox O2 Delivery O2 Flow Rate FiO2 07/03/21 07:06 95 Nasal Cannula 2.00 07/03/21 06:00 89 11 107/57 (74) 98 Nasal Cannula 2.00 07/03/21 05:00 95 12 105/60 (75) 99 Nasal Cannula 2.00 07/03/21 04:00 117 29 117/54 (75) 97 Nasal Cannula 2.00 07/03/21 04:00 93 13 113/76 (88) 95 Nasal Cannula 2.00 07/03/21 03:00 102 13 113/56 (75) 90 Nasal Cannula 2.00 07/03/21 02:00 102 15 101/48 (65) 98 Nasal Cannula 2.00 07/03/21 01:00 112 15 103/55 (71) 99 Nasal Cannula 2.00 07/03/21 01:00 110 07/03/21 00:00 117 29 117/54 (75) 97 Nasal Cannula 2.00 07/02/21 23:00 124 27 137/66 (89) 96 Nasal Cannula 2.00 07/02/21 22:00 126 17 147/78 (101) 96 Nasal Cannula 2.00 07/02/21 21:24 137 07/02/21 21:00 126 20 120/70 (87) 94 Nasal Cannula 2.00 07/02/21 20:15 130 21 147/81 (103) 95 Nasal Cannula 2.00 07/02/21 19:43 2.00 99 07/02/21 19:35 37.3 111 18 103/50 (67) 100 Nasal Cannula 2.00 07/02/21 19:08 99 Nasal Cannula 2.00 07/02/21 17:12 35.6 108 93 91 07/02/21 15:47 37.0 107 22 149/77 (101) 97 Room Air 07/02/21 15:45 118 23 133/75 93 Room Air 07/02/21 10:15 35.6 108 20 105/88 97 Room Air 07/02/21 10:15 35.6 108 20 97 Room Air I & O 07/03/21 07:00 Intake Total 1090 ml Output Total 800 ml Balance 290 ml Height & Weight Height: 5'8.00" Weight: 205lbs. 0.0oz. [id number]; 32.22 BMI Method:Stated General Appearance: No Apparent Distress Capillary Refill: Less Than 3 Seconds Peripheral Pulses: 1+ Dorsalis Pedis (R), 1+ Left Dors-Pedis (L) Results Lab Laboratory Tests 07/02/21 11:00 07/03/21 04:10 Assessment/Plan Assessment/Plan See free text. Critical Care: Critically Ill Patient ANDRE BOOGIE MD Jul 03, 2021 08:33
[2021-07-03] MEDS ORDERED: SPIR25TA5 PO ×2 (10:32)
[2021-07-03] MEDS ORDERED: PENI500T PO ×2 (10:32)
[2021-07-03] MEDS ORDERED: PYRI60TA PO ×2 (10:32)
[2021-07-03] MEDS ORDERED: [UNRECOGNIZED DRUG - CODE] IV ×2 (10:32)
[2021-07-03] MEDS ORDERED: DIPH25TA65 PO ×2 (10:32)
[2021-07-03] MEDS ORDERED: CEFD300C3 PO ×2 (10:32)
[2021-07-03] MEDS ORDERED: HYDR4TAB PO ×2 (10:32)
[2021-07-03] MEDS ORDERED: FURO80TA3 PO ×2 (10:32)
[2021-07-03] MEDS ORDERED: ISOS60TA63 PO ×2 (10:32)
[2021-07-03] MEDS ORDERED: METO5TAB6 PO ×2 (10:32)
[2021-07-03] MEDS ORDERED: POTA10TA PO ×4 (10:32)
--- NOTE | 2021-07-03 10:45 | Physical Therapy Evaluation ---
PT Evaluation-General Medical Diagnosis Admission Date Jul 02, 2021 at 14:42 Medical Diagnosis: Myasthenia Gravis, End stage CHF, Chest pain, CAD Onset Date: Jun 29, 2021 Therapy Diagnosis Therapy Diagnosis: Gait deficit, strength deficit Height/Weight Height (Feet): 5 Height (Inches): 8.00 Weight (Pounds): 205 Weight (Ounces): 0.0 Precautions Precautions/Isolations: Contact Isolation, Fall Prevention Referral Physician: Dr. Cedeño Reason for Referral: Evaluation/Treatment Medical History Pertinent Medical History: ASVD, CAD, DM, Heart Failure, HTN, [place], PVD, Renal Insufficiency Social History Home: Single Level Current Living Status: Spouse Entry Into Home: Stairs With Railing PT Steps Into Home: 2 Prior Prior Level of Function SCALE: Activities may be completed with or without assistive devices. 3-Xrhqafnyga-bpfyvzm completes the activity by him/herself with no assistance from a helper. 5-Set-up or Clean-up Assistance-helper sets up or cleans up; patient completes activity. [place] assists only prior to or following the activity. 4-Supervision or Touching Assistance-helper provides verbal cues and/or touching/steadying and/or contact guard assistance as patient completes activity. Assistance may be provided throughout the activity or intermittently. 3-Partial/Moderate Assistance-helper does LESS THAN HALF the effort. [place] lifts, holds or supports trunk or limbs, but provides less than half the effort. 2-Substantial/Maximal Assistance-helper does MORE THAN HALF the effort. [place] lifts or holds trunk or limbs and provides more than half the effort. 4-Faioubyuw-nwsnou does ALL the effort. Patient does none of the effort to complete the activity. Or, the assistance of 2 or more helpers is required for the patient to complete the activity. If activity was not attempted, code reason: 7-Patient Refused. 9-Not Applicable-not attempted and the patient did not perform the activity before the current illness, exacerbation or injury. 10-Not Attempted due to Environmental Limitations-(lack of equipment, weather restraints, etc.). 88-Not Attempted due to Medical Conditions or Safety Concerns. Bed Mobility: 6 Transfers (B,C,W/C): 6 Gait: 6 Stairs: 6 Indoor Mobility (Ambulation): Independent Stairs: Independent Prior Devices Use: None Prior Device Use: Patient reports he has a cane but never uses it. 2 L O2 at night. PT Evaluation-Current Subjective Patient rates chest pain at 7/10 currently. Patient reports "I think my MG is acting up; my eye lids are droopy, I can't lift my arms up, having trouble walking, and I can't stand up." Objective Patient Orientation: Person, Place, Time, Situation Attachments: Oxygen, IV ROM/Strength ROM Lower Extremities WFLs bilaterally to AROM Strength Lower Extremities Joint Right Left Hip Flex 3/5 3/5 Hip Ext 3+/5 3+/5 Hip Abd 3+/5 3+/5 Hip Add 3+/5 3+/5 Knee Flex 4/5 3/5 Knee Ext 4-/5 4/5 Ankle DF 3+/5 3+/5 Ankle PF 3+/5 3+/5 Sensory Vision: Functional Hearing: Functional Sensation Right Lower Extremit: Intact Sensation Left Lower Extremity: Intact Transfers Roll Left to Right (QC): 5 Sit to Lying (QC): 5 Lying to Sitting/Side of Bed(Q: 5 Sit to Stand (QC): 3 Chair/Klx-cu-Anwhv Xfer(QC): 3 Gait Does the Patient Walk?: No and Walking Goal IS indicated Mode of Locomotion: Walk Anticipated Mode of Locomotion: Walk Walk 10 feet (QC): 88 Gait Assistive Device: FWW Balance Sitting Static: Good Sitting Dynamic: Good Standing Static: Poor Standing Dynamic: Poor Assessment/Needs Patient lying supine in bed upon PT arrival, agreeable to treatment. Patient demonstrates moving tremors throughout in that whenever he would move his LEs, a tremor would initiate. Patient performed all observed bed mobility with SBA. Patient performed transfer with mod A. Patient able to perform sit to stand with mod A, however shaking in LEs becomes too great and patient unable to initiate stepping, requests to sit down. Attempted LE therapeutic exercise, however patient stopped at 7 and 5 reps of LAQs right and left LE respectively due to self report of fatigue. Patient returned to bed with call light in hand, all needs met, nursing notified, and Dr. Cedeño consulted on patients evaluation. Rehab Potential: Fair PT Watch Engine Operator Goals Snf Goals PT Watch Engine Operator Goals Time Frame: Jul 31, 2021 Roll Left & Right (QC): 5 Sit to Lying (QC): 5 Lying-Sitting on Side/Bed(QC): 5 Sit to Stand (QC): 5 Chair/Smi-qi-Lhqfq Xfer(QC): 5 Toilet Transfer (QC): 5 Car Transfer (QC): 5 Does the Patient Walk: Yes Walk 10 feet (QC): 3 Walk 50ft with 2 Turns (QC): 3 Walk 150 ft (QC): 3 Walking 10ft on Uneven Surface: 3 1 Step (curb) (QC): 3 4 Steps (QC): 3 12 Steps (QC): 3 PT Plan Problem List Problem List: Activity Tolerance, Functional Strength, Safety, Balance, Gait, Transfer, Bed Mobility, ROM Treatment/Plan Treatment Plan: Continue Plan of Care Treatment Plan: Bed Mobility, Education, Functional Activity Mitul, Functional Strength, Group Therapy, Gait, Safety, Therapeutic Exercise, Transfers Treatment Duration: Sep 04, 2021 Frequency: 6 times per week Estimated Hrs Per Day: .25 hour per day Safety Risks/Education Patient Education: Transfer Techniques, Safety Issues Teaching Recipient: Patient Teaching Methods: Demonstration, Discussion Response to Teaching: Verbalize Understanding, Return Demonstration Time/GCodes Time In: 1000 Time Out: 1030 Total Billed Treatment Time: 30 Total Billed Treatment Visit, MAGNUS Fung JOHN A PT Jul 03, 2021 10:45
[2021-07-03] MEDS ORDERED: PRED10TA22 PO ×2 (11:09)
--- NOTE | 2021-07-03 13:30 | History & Physical ---
AGNES KEITH 07/03/21 1330: History of Present Illness History of Present Illness Reason for visit/HPI Pt is a 65yo male with a PMH of myathenis gravis, a -fib, CHF on milrinone gtt, CKD, who presented to the ER due to blockage of his picc line responsible for milrinone gtt. He has also been receiving treatment for a pneumonia for the last week. He states that last night he had chest pain that radiated to jaw and left arm. Had a short period of dyspnea that has since resolved. He reports difficulty swallowing yesterday but was able to eat dinner last night without issue. Denies any nausea/vomiting. He did have night sweats last night. Patients says he feels week and is unable to walk. He is usually able to walk without any aid. Date of Admission Jul 02, 2021 at 14:42 Date Seen by a Provider: Jul 03, 2021 Time Seen by a Provider: 09:00 I consulted on this patient on 07/03/21 13:21 Attending Physician Maritza Guardado MD Admitting Physician No,Local Physician Consult Allergies and Home Medications Allergies Coded Allergies: albumin colloid, human (Verified Allergy, Unknown, 07/02/21) carvedilol (Verified Allergy, Unknown, 07/02/21) codeine (Verified Allergy, Unknown, PATIENT HAS RECEIVED MORPHINE WITHOUT ISSUE, 07/02/21) trazodone (Verified Allergy, Unknown, 07/02/21) Patient Home Medication List Aspirin (Aspirin) 81 Mg Tab.chew, 81 MG PO DAILY, (Reported) Entered as Reported by: SLIME VELIZ on 12/17/20913 Last Action: Reviewed Atorvastatin Calcium (Atorvastatin Calcium) 80 Mg Tablet, 80 MG PO HS, (Reported) Entered as Reported by: SLIME VELIZ on 12/17/20913 Last Action: Reviewed Cefdinir (Cefdinir) 300 Mg Capsule, 300 MG PO BID, (Reported) Entered as Reported by: SLIME VELIZ on 07/03/21 1032 Last Action: Reviewed Cholecalciferol (Vitamin D3) (Vitamin D3) 25 Mcg Capsule, 25 MCG PO BID, (Reported) Entered as Reported by: SLIME VELIZ on 12/17/20913 Last Action: Reviewed Diphenhydramine HCl (Benadryl Allergy) 25 Mg Tablet, 25-50 MG PO Q6H PRN for ALLERGY SYMPTOMS, (Reported) Entered as Reported by: SLIME VELIZ on 07/03/211031 Last Action: Reviewed Duloxetine HCl (Duloxetine HCl) 30 Mg Capsule.dr, 30 MG PO DAILY, (Reported) Entered as Reported by: LOI KULKARNI on 12/16/201645 Last Action: Reviewed Eculizumab (Soliris) 300 Mg/30 Ml Vial, 1,200 MG IV EVERY 2 WEEKS, (Reported) Entered as Reported by: SLIME VELIZ on 12/17/20927 Last Action: Reviewed Furosemide (Furosemide) 40 Mg Tablet, 40 MG PO 1400, (Reported) Entered as Reported by: LOI KULKARNI on 12/16/201645 Last Action: Reviewed Furosemide (Furosemide) 80 Mg Tablet, 80 MG PO DAILY, (Reported) Entered as Reported by: SLIME VELIZ on 07/03/211031 Last Action: Reviewed Gabapentin (Gabapentin) 600 Mg Tablet, 600 MG PO HS PRN for PAIN-BREAKTHROUGH, (Reported) Entered as Reported by: SLIME VELIZ on 01/03/21943 Last Action: Reviewed Hydromorphone HCl (Hydromorphone HCl) 4 Mg Tablet, 4 MG PO Q6H PRN for PAIN- SEVERE (8-10), (Reported) Entered as Reported by: SLIME VELIZ on 07/03/211031 Last Action: Reviewed Immun Glob G(IgG)/Gly/Iga 0-50 (Gammaplex 10 Gram/100 ml Vial) 100 Ml Vial, 50 GM IV EVERY 2 WEEKS, (Reported) Entered as Reported by: SLIME VELIZ on 07/03/211031 Last Action: Reviewed Insulin Aspart (Novolog Flexpen) 300 Units/3 Ml Solution, 30 UNITS SQ AC, (Reported) Entered as Reported by: DENNISE BLAKELY on 01/03/21900 Last Action: Reviewed Insulin Glargine,Hum.rec.anlog (Basaglar Kwikpen U-100) 100 Unit/1 Ml Insuln.pen, 35 UNITS SC Q12H, (Reported) Entered as Reported by: SLIME VELIZ on 12/17/20913 Last Action: Reviewed Isosorbide Mononitrate (Isosorbide Mononitrate ER) 60 Mg Tab, 60 MEQ PO HS, (Reported) Entered as Reported by: SLIME VELIZ on 07/03/21 103 Last Action: Reviewed Magnesium Oxide (Magnesium) 400 Mg Tablet, 400 MG PO BID, (Reported) Entered as Reported by: SLIME VELIZ on 04/22/21 111 Last Action: Reviewed Metolazone (Metolazone) 5 Mg Tablet, 5 MG PO 1400 PRN for 2 LB GAIN IN 24 HRS, (Reported) Entered as Reported by: SLIME VELIZ on 07/03/211031 Last Action: Reviewed Pantoprazole Sodium (Pantoprazole Sodium) 40 Mg Tablet.dr, 40 MG PO BID, (Reported) Entered as Reported by: JAMEY GUTIERREZ on 03/23/18 0850 Last Action: Reviewed Penicillin V Potassium (Penicillin V Potassium) 500 Mg Tablet, 500 MG PO BID, (Reported) Entered as Reported by: SLIME VELIZ on 07/03/211031 Last Action: Reviewed Potassium Chloride (K-Tab ER) 10 Meq Tablet.er, 20 MEQ PO DAILY, (Reported) Entered as Reported by: SLIME VELIZ on 07/03/211031 Last Action: Reviewed Potassium Chloride (K-Tab ER) 10 Meq Tablet.er, 10 MEQ PO 1999, (Reported) Entered as Reported by: SLIME VELIZ on 07/03/211031 Last Action: Reviewed Prednisone (Prednisone) 10 Mg Tab, 10 MG PO DAILY, (Reported) Entered as Reported by: SLIME VELIZ on 04/22/21 110 Last Action: Reviewed Prednisone (Prednisone) 10 Mg Tab.ds.pk, 10 MG PO DAILY Prescribed by: MARITZA GUARDADO on 07/03/21 110 Pyridostigmine [place] (Pyridostigmine [place]) 60 Mg Tablet, 60 MG PO QID, (Reported) Entered as Reported by: SLIME VELIZ on 07/03/21 103 Last Action: Reviewed Ranolazine (Ranolazine ER) 1,000 Mg Tab.er.12h, 1,000 MG PO BID, (Reported) Entered as Reported by: HERMINIO ENAMORADO on 04/21/21 1722 Last Action: Reviewed Spironolactone (Spironolactone) 25 Mg Tablet, 12.5 MG PO DAILY, (Reported) Entered as Reported by: SLIME VELIZ on 07/03/21 1032 Last Action: Reviewed [[id number]/325ML] , 1 EA IV UD, (Reported) Entered as Reported by: SLIME VELIZ on 04/22/21 1137 Last Action: Reviewed Discontinued Medications Cefdinir (Cefdinir) 300 Mg Capsule, 300 MG PO BID Discontinued Reason: Duplicate Order Prescribed by: TRISHA CASTRO on 06/23/21 1218 Last Action: Discontinued Doxycycline Hyclate (Doxycycline Hyclate) 100 Mg Tablet, 100 MG PO BID Discontinued Reason: Duplicate Order Prescribed by: TRISHA CASTRO on 06/23/21 1218 Last Action: Discontinued Hydromorphone HCl (Hydromorphone HCl) 2 Mg Tablet, 2-4 MG PO Q6H PRN for PAIN- SEVERE (8-10), (Reported) Discontinued Reason: Duplicate Order Entered as Reported by: SLIME VELIZ on 01/03/21 0944 Last Action: Discontinued Immune Glob,Adriano Caprylate(IgG) (Gamunex-C) 40 Gm/400 Ml Vial, 50 GM IJ EVERY 4 WEEKS, (Reported) Discontinued Reason: Duplicate Order Entered as Reported by: SLIME VELIZ on 12/17/20 0928 Last Action: Discontinued Isosorbide Mononitrate (Isosorbide Mononitrate ER) 60 Mg Tab, 60 MG PO HS, (Reported) Discontinued Reason: Duplicate Order Entered as Reported by: DENNISE BLAKELY on 01/03/21 0901 Last Action: Discontinued Metoprolol Succinate (Metoprolol Succinate) 25 Mg Tab.er.24h, 12.5 MG PO DAILY, (Reported) Discontinued Reason: No Longer Taking Entered as Reported by: SLIME VELIZ on 04/22/21 1109 Last Action: Discontinued [place]-3 Fatty Acids/Fish Oil (Fish Oil 1,200 mg Softgel) 1 Each Capsule, 1 EACH PO HS, (Reported) Discontinued Reason: No Longer Taking Entered as Reported by: SLIME VELIZ on 12/17/20 0914 Last Action: Discontinued Pyridostigmine [place] (Mestinon) 60 Mg Tab, 60 MG PO QID, (Reported) Discontinued Reason: Duplicate Order Entered as Reported by: DINA FITZGERALD on 07/24/20 1147 Last Action: Discontinued Sacubitril/Valsartan (Entresto 24 mg-26 mg Tablet) 1 Each Tablet, 1 EA PO BID, (Reported) Discontinued Reason: No Longer Taking Entered as Reported by: DENNISE BLAKELY on 01/03/21 0901 Last Action: Discontinued Sulfamethoxazole/Trimethoprim (Bactrim Ds Tablet) 1 Each Tablet, 1 EA PO BID, (Reported) Discontinued Reason: No Longer Taking Entered as Reported by: SLIME VELIZ on 04/22/21 1109 Last Action: Discontinued Past Cvpmupw-Flhkyj-Yahwsp Hx Patient Social History Tobacco Use?: No Use of E-Cig and/or Vaping dev: No Substance use?: Yes Substance type: Marijuana Additional substance use comme: Pain medication substitute, 3-4 weeks ago Substance frequency: Couple times a week Alcohol Use?: No Pt feels they are or have been: No Immunizations Up To Date Date of Influenza Vaccine: Jun 06, 2021 First/Initial COVID19 Vaccinat: Nov 03, 2020 Second COVID19 Vaccination [place]: February 01, 2021 Tetanus Booster (TDap): Less Than 5 Years Hepatitis A: Yes Hepatitis B: Yes PED Vaccines UTD: Yes Date of Pneumonia Vaccine: Apr 14, 2017 Seasonal Allergies Seasonal Allergies: No Current Status Advance Directives: Yes Advance Directive Location: Copy from prev record Communicates: Verbally Primary Language: Burmese Preferred Spoken Language: Burmese Is interpretation needed?: No Sensory deficits: Vision impairment, Hearing impairment Implanted or Applied Medical D: Pacemaker, Central venous access, Port-a-cath, Stents Past Medical History Surgeries: Cardiac, Coronary Stent, Ear Surgery, Orthopedic, Pacemaker Pneumonia, Sleep Apnea Currently Using CPAP: No Currently Using BIPAP: No Cardiomyopathy, Coronary Artery Disease, High Cholesterol, Hypertension, Peripheral Vascular TIA Gastroesophageal Reflux, Ulcer Arthritis, Gout Diabetes, Insulin dep, Lupus Dysphagia, Chronic Ear Infection Loss of Vision: Denies Hearing Impairment: Hard of Hearing Sleep Difficulties, Anxiety Blood Disorders: No Adverse Reaction/Blood Tranf: No Diastolic dysfunction with EF of 50-55%, per echo 07/2019 but [facility] 11/30/20 Myasthenia gravis 15% EF 25% Multiple stents [place] Neuropathy Esophageal Ulcers Arthritis Diabetes Mellitus, insulin dependent Anxiety CAD inoperable awaiting heart transplant Family Medical History Alcoholism 19 FATHER Cancer 19 FATHER 19 MOTHER Chest pain 19 MOTHER Family history: Arthritis (grandmother) G8 SISTER Family history: Cardiovascular disease 19 MOTHER Family history: Diabetes mellitus G8 SISTER Family history: Hypertension 19 FATHER 19 MOTHER Hearing loss 19 FATHER Heart disease 19 MOTHER Malignant neoplasm of lung 19 MOTHER Myocardial infarction 19 MOTHER Stroke 19 FATHER No Pertinent Family Hx, Heart Disease, Cancer, Diabetes, Stroke Review of Systems Constitutional: diaphoresis, weakness Respiratory: cough; No short of breath Gastrointestinal: No abdominal pain, No nausea, No vomiting Musculoskeletal: muscle weakness Physical Exam Vital Signs Vital Signs - First Documented 07/02/21 07/02/21 07/02/21 10:15 17:12 19:08 Temp 35.6 Pulse 108 Resp 20 B/P (MAP) 105/88 Pulse Ox 97 O2 Delivery Room Air O2 Flow Rate 2.00 FiO2 91 Capillary Refill : Less Than 3 Seconds Height, Weight, BMI Height: 5'8.00" Weight: 205lbs. 0.0oz. [id number]; 32.22 BMI Method:Stated General Appearance: No Apparent Distress, Obese HEENT: PERRL/EOMI, Moist Mucous Membranes Neck: Normal Inspection, Supple Respiratory: Lungs Clear, No Accessory Muscle Use, No Respiratory Distress Cardiovascular: Regular Rate, Rhythm, No Edema Gastrointestinal: Normal Bowel Sounds, Non Tender, Soft Extremity: Normal Inspection, No Pedal Edema Neurologic/Psychiatric: Alert, Oriented x3, Normal Mood/Affect Skin: Normal Color, Warm/Dry Assessment/Plan Assessment and Plan Myasthenia Gravis Pt received solu-medrol in ER No respiratory distress Continue outpatient regimen PT/OT Pneumonia IV fluids, Rocephin, Doxy CXR improved from prior CHFrEF Cardiology consulted Continue outpatient regimen T2DM [facility] MARITZA GUARDADO MD 07/03/212020: History of Present Illness History of Present Illness Time Seen by a Provider: 09:15 Allergies and Home Medications Allergies Coded Allergies: albumin colloid, human (Verified Allergy, Unknown, 07/02/21) carvedilol (Verified Allergy, Unknown, 07/02/21) codeine (Verified Allergy, Unknown, PATIENT HAS RECEIVED MORPHINE WITHOUT ISSUE, 07/02/21) trazodone (Verified Allergy, Unknown, 07/02/21) Patient Home Medication List Home Medication List Reviewed: Yes Aspirin (Aspirin) 81 Mg Tab.chew, 81 MG PO DAILY, (Reported) Entered as Reported by: SLIME VELIZ on 12/17/20913 Last Action: Reviewed Atorvastatin Calcium (Atorvastatin Calcium) 80 Mg Tablet, 80 MG PO HS, (Reported) Entered as Reported by: SLIME VELIZ on 12/17/20913 Last Action: Reviewed Cefdinir (Cefdinir) 300 Mg Capsule, 300 MG PO BID, (Reported) Entered as Reported by: SLIME VELIZ on 07/03/211031 Last Action: Reviewed Cholecalciferol (Vitamin D3) (Vitamin D3) 25 Mcg Capsule, 25 MCG PO BID, (Reported) Entered as Reported by: SLIME VELIZ on 12/17/20913 Last Action: Reviewed Diphenhydramine HCl (Benadryl Allergy) 25 Mg Tablet, 25-50 MG PO Q6H PRN for ALLERGY SYMPTOMS, (Reported) Entered as Reported by: SLIME VELIZ on 07/03/211031 Last Action: Reviewed Duloxetine HCl (Duloxetine HCl) 30 Mg Capsule.dr, 30 MG PO DAILY, (Reported) Entered as Reported by: LOI KULKARNI on 12/16/201645 Last Action: Reviewed Eculizumab (Soliris) 300 Mg/30 Ml Vial, 1,200 MG IV EVERY 2 WEEKS, (Reported) Entered as Reported by: SLIME VELIZ on 12/17/20927 Last Action: Reviewed Furosemide (Furosemide) 40 Mg Tablet, 40 MG PO 1400, (Reported) Entered as Reported by: LOI KULKARNI on 12/16/201645 Last Action: Reviewed Furosemide (Furosemide) 80 Mg Tablet, 80 MG PO DAILY, (Reported) Entered as Reported by: SLIME VELIZ on 07/03/211031 Last Action: Reviewed Gabapentin (Gabapentin) 600 Mg Tablet, 600 MG PO HS PRN for PAIN-BREAKTHROUGH, (Reported) Entered as Reported by: SLIME VELIZ on 01/03/21943 Last Action: Reviewed Hydromorphone HCl (Hydromorphone HCl) 4 Mg Tablet, 4 MG PO Q6H PRN for PAIN- SEVERE (8-10), (Reported) Entered as Reported by: SLIME VELIZ on 07/03/211031 Last Action: Reviewed Immun Glob G(IgG)/Gly/Iga 0-50 (Gammaplex 10 Gram/100 ml Vial) 100 Ml Vial, 50 GM IV EVERY 2 WEEKS, (Reported) Entered as Reported by: SLIME VELIZ on 07/03/21 103 Last Action: Reviewed Insulin Aspart (Novolog Flexpen) 300 Units/3 Ml Solution, 30 UNITS SQ AC, (Reported) Entered as Reported by: DENNISE BLAKELY on 01/03/21 0901 Last Action: Reviewed Insulin Glargine,Hum.rec.anlog (Basaglar Kwikpen U-100) 100 Unit/1 Ml Insuln.pen, 35 UNITS SC Q12H, (Reported) Entered as Reported by: SLIME VELIZ on 12/17/20 0914 Last Action: Reviewed Isosorbide Mononitrate (Isosorbide Mononitrate ER) 60 Mg Tab, 60 MEQ PO HS, (Reported) Entered as Reported by: SLIME VELIZ on 07/03/211031 Last Action: Reviewed Magnesium Oxide (Magnesium) 400 Mg Tablet, 400 MG PO BID, (Reported) Entered as Reported by: SLIME VELIZ on 04/22/21 1119 Last Action: Reviewed Metolazone (Metolazone) 5 Mg Tablet, 5 MG PO 1400 PRN for 2 LB GAIN IN 24 HRS, (Reported) Entered as Reported by: SLIME VELIZ on 07/03/211031 Last Action: Reviewed Pantoprazole Sodium (Pantoprazole Sodium) 40 Mg Tablet.dr, 40 MG PO BID, ( Reported) Entered as Reported by: JAMEY GUTIERREZ on 03/23/18 0850 Last Action: Reviewed Penicillin V Potassium (Penicillin V Potassium) 500 Mg Tablet, 500 MG PO BID, (Reported) Entered as Reported by: SLIME VELIZ on 07/03/211031 Last Action: Reviewed Potassium Chloride (K-Tab ER) 10 Meq Tablet.er, 20 MEQ PO DAILY, (Reported) Entered as Reported by: SLIME VELIZ on 07/03/211031 Last Action: Reviewed Potassium Chloride (K-Tab ER) 10 Meq Tablet.er, 10 MEQ PO 1999, (Reported) Entered as Reported by: SLIME VELIZ on 07/03/211031 Last Action: Reviewed Prednisone (Prednisone) 10 Mg Tab, 10 MG PO DAILY, (Reported) Entered as Reported by: SLIME VELIZ on 04/22/21 1109 Last Action: Reviewed Prednisone (Prednisone) 10 Mg Tab.ds.pk, 10 MG PO DAILY Prescribed by: MARITZA GUARDADO on 07/03/21 1109 Pyridostigmine [place] (Pyridostigmine [place]) 60 Mg Tablet, 60 MG PO QID, (Reported) Entered as Reported by: SLIME VELIZ on 07/03/21 1032 Last Action: Reviewed Ranolazine (Ranolazine ER) 1,000 Mg Tab.er.12h, 1,000 MG PO BID, (Reported) Entered as Reported by: HERMINIO ENAMORADO on 04/21/21 1722 Last Action: Reviewed Spironolactone (Spironolactone) 25 Mg Tablet, 12.5 MG PO DAILY, (Reported) Entered as Reported by: SLIME VELIZ on 07/03/21 103 Last Action: Reviewed [[id number]/325ML] , 1 EA IV UD, (Reported) Entered as Reported by: SLIME VELIZ on 04/22/21 1137 Last Action: Reviewed Discontinued Medications Cefdinir (Cefdinir) 300 Mg Capsule, 300 MG PO BID Discontinued Reason: Duplicate Order Prescribed by: TRISHA CASTRO on 06/23/21 121 Last Action: Discontinued Doxycycline Hyclate (Doxycycline Hyclate) 100 Mg Tablet, 100 MG PO BID Discontinued Reason: Duplicate Order Prescribed by: TRISHA CASTRO on 06/23/211217 Last Action: Discontinued Hydromorphone HCl (Hydromorphone HCl) 2 Mg Tablet, 2-4 MG PO Q6H PRN for PAIN-SEVERE (8-10), (Reported) Discontinued Reason: Duplicate Order Entered as Reported by: SLIME VELIZ on 01/03/21 0944 Last Action: Discontinued Immune Glob,Adriano Caprylate(IgG) (Gamunex-C) 40 Gm/400 Ml Vial, 50 GM IJ EVERY 4 WEEKS, (Reported) Discontinued Reason: Duplicate Order Entered as Reported by: SLIME VELIZ on 12/17/20 0928 Last Action: Discontinued Isosorbide Mononitrate (Isosorbide Mononitrate ER) 60 Mg Tab, 60 MG PO HS, (Reported) Discontinued Reason: Duplicate Order Entered as Reported by: DENNISE BLAKELY on 01/03/21 0901 Last Action: Discontinued Metoprolol Succinate (Metoprolol Succinate) 25 Mg Tab.er.24h, 12.5 MG PO DAILY, (Reported) Discontinued Reason: No Longer Taking Entered as Reported by: SLIME VELIZ on 04/22/21 110 Last Action: Discontinued [place]-3 Fatty Acids/Fish Oil (Fish Oil 1,200 mg Softgel) 1 Each Capsule, 1 EACH PO HS, (Reported) Discontinued Reason: No Longer Taking Entered as Reported by: SLIME VELIZ on 12/17/20 0914 Last Action: Discontinued Pyridostigmine [place] (Mestinon) 60 Mg Tab, 60 MG PO QID, (Reported) Discontinued Reason: Duplicate Order Entered as Reported by: DINA FITZGERALD on 07/24/20 1147 Last Action: Discontinued Sacubitril/Valsartan (Entresto 24 mg-26 mg Tablet) 1 Each Tablet, 1 EA PO BID, (Reported) Discontinued Reason: No Longer Taking Entered as Reported by: DENNISE BLAKELY on 01/03/21900 Last Action: Discontinued Sulfamethoxazole/Trimethoprim (Bactrim Ds Tablet) 1 Each Tablet, 1 EA PO BID, (Reported) Discontinued Reason: No Longer Taking Entered as Reported by: SLIME VELIZ on 04/22/211108 Last Action: Discontinued Past Pfgiddo-Zaovjy-Vkwnru Hx Family Medical History Alcoholism 19 FATHER Cancer 19 FATHER 19 MOTHER Chest pain 19 MOTHER Family history: Arthritis (grandmother) G8 SISTER Family history: Cardiovascular disease 19 MOTHER Family history: Diabetes mellitus G8 SISTER Family history: Hypertension 19 FATHER 19 MOTHER Hearing loss 19 FATHER Heart disease 19 MOTHER Malignant neoplasm of lung 19 MOTHER Myocardial infarction 19 MOTHER Stroke 19 FATHER Physical Exam General Appearance: No Apparent Distress, Chronically ill, Obese HEENT: PERRL/EOMI, Pharynx Normal Neck: Normal Inspection, Supple Respiratory: Lungs Clear, Normal Breath Sounds, No Respiratory Distress Cardiovascular: Regular Rate, Rhythm, No Murmur Gastrointestinal: Normal Bowel Sounds, Non Tender, Soft Extremity: Normal Inspection, Non Tender, No Pedal Edema Neurologic/Psychiatric: Alert, Oriented x3, No Motor/Sensory Deficits, Normal Mood/Affect; No Aphasia, No Facial Droop, No Motor Weakness Skin: Normal Color, Warm/Dry Assessment/Plan Assessment and Plan 65 year old male with end stage heart failure on continuous milrinone who presented with occluded PICC and was admitted for observation. He has been on antibiotics for pneumonia as an outpatient and this appears to be improving. He also has myasthenia gravis and reports difficulty swallowing pills and difficulty with ADLs. He was able to eat dinner and breakfast without issue. He appears to be moving all extremities without issue. PICC nurse, Elda, was able to assist with his line and it is fully functioning and well positioned. Continue observation. Likely discharge home tomorrow. Problems: (1) End stage heart failure Status: Chronic (2) Occluded PICC line Status: Acute Qualifiers: Qualified Codes: T82.898A - Other specified complication of vascular pr osthetic devices, implants and grafts, initial encounter (3) Right lower lobe pneumonia Status: Acute Qualifiers: Qualified Codes: J18.9 - Pneumonia, unspecified organism (4) Chronic chest pain Status: Acute (5) Coronary artery disease Status: Chronic (6) Myasthenia gravis Status: Chronic (7) Chronic kidney disease Status: Acute (8) IDDM (insulin dependent diabetes mellitus) Status: Acute (9) Receiving inotropic medication Status: Chronic Admission Diagnosis Occluded PICC line with end stage heart failure on continuous milrinone Admission Status: Observation Supervisory-Addendum Brief Verification & Attestation Participated in pt care: history, MDM, physical Personally performed: exam, history, MDM, supervision of care Care discussed with: Medical Student Procedures: n/a Results interpretation: Verified all documentation A medical student performed and documented this service in my presence. I reviewed and verified all information documented by the medical student and made modifications to such information, when appropriate. I personally performed the physical exam and medical decision making. AGNES KEITH Jul 03, 2021 13:30 MARITZA GUARDADO MD Jul 03, 2021 20:21
[2021-07-03] MEDS: cefTRIAXone 1,000 MG/SWFI 10 ML IV PUSH IV SCH ×2 (13:37)
--- NOTE | 2021-07-03 13:50 | Consultation-Cardiology ---
HPI-Cardiology Cardiology Consultation Date of Consultation 07/03/21 Date of Admission Time Seen by Provider: 12:00 Indication: chest pain HPI Pt is a 65yo male with history of myathenis gravis, extensive CAD, CHF on milrinone gtt, CKD, presented to the ER with complaints of difficulting swallowing for the past 1-2 days, episode of chest pain and tachycardia as well as c/o blockage of his picc line responsible for milrinone gtt. Had recently been treated for pneumonia. Had episode of chest pain that radiated to jaw and left arm with associated tachycardia. Patient reports episode lasted for several minutes. Denies any active chest pain at this time. Concerned about his swallowing difficulties and concerned he is having AE of his Myathenis Gravis. Follows with neurology at . Home Medications & Allergies Allergies: Coded Allergies: albumin colloid, human (Verified Allergy, Unknown, 07/02/21) carvedilol (Verified Allergy, Unknown, 07/02/21) codeine (Verified Allergy, Unknown, PATIENT HAS RECEIVED MORPHINE WITHOUT ISSUE, 07/02/21) trazodone (Verified Allergy, Unknown, 07/02/21) Home Medication List Reviewed: Yes QUW-Ghpqko-Wzcepo Hx Patient Social History Marital Status: Drug of Choice: HX AMPHETAMINES/METHAMPHETAMINES 2nd Hand Smoke Exposure: No Recent Hopitalizations: Yes Have you traveled recently?: No Alcohol Use?: No Substance type: Marijuana Immunizations Up To Date Tetanus Booster (TDap): More than 5yrs Date of Pneumonia Vaccine: Apr 14, 2017 Date of Influenza Vaccine: Jun 06, 2021 Past Medical History Discussed below Family Medical History Significant Family History: No Pertinent Family Hx, Heart Disease, Cancer, Diabetes, Stroke Family History: Alcoholism 19 FATHER Cancer 19 FATHER 19 MOTHER Chest pain 19 MOTHER Family history: Arthritis (grandmother) G8 SISTER Family history: Cardiovascular disease 19 MOTHER Family history: Diabetes mellitus G8 SISTER Family history: Hypertension 19 FATHER 19 MOTHER Hearing loss 19 FATHER Heart disease 19 MOTHER Malignant neoplasm of lung 19 MOTHER Myocardial infarction 19 MOTHER Stroke 19 FATHER Review of Systems-General Review of Systems Constitutional: see HPI, malaise, weakness EENTM: other (dysphagia); No double vision Respiratory: see HPI; No cough; dyspnea on exertion Cardiovascular: see HPI, chest pain; No edema; Hx of Intervention; No palpitations, No syncope; vascular heart diseas; No other Gastrointestinal: see HPI; No abdominal pain Genitourinary: see HPI; No hematuria Musculoskeletal: see HPI, joint pain, muscle weakness Skin: see HPI; No lesions Psychiatric/Neurological: See HPI Reviewed Test Results Reviewed Test Results Lab Laboratory Tests 07/02/21 17:45: Glucometer 323H 07/02/21 19:47: Troponin I 0.055H 07/02/21 21:47: Glucometer 468*H 07/02/21 23:55: Glucometer 463*H 07/03/21 01:49: Glucometer 370H 07/03/21 04:10: Glucometer 255H, White Blood Count 12.1H, Red Blood Count 4.00L, Hemoglobin 9.1L , Hematocrit 31L, Mean Corpuscular Volume 77L, Mean Corpuscular Hemoglobin 23L, Mean Corpuscular Hemoglobin Concent 30L, Red Cell Distribution Width 15.5H, Platelet Count 317, Mean Platelet Volume 9.6, Immature Granulocyte % (Auto) 1, Neutrophils (%) (Auto) 86H, Lymphocytes (%) (Auto) 5L, Monocytes (%) (Auto) 8, Eosinophils (%) (Auto) 0, Basophils (%) (Auto) 0, Neutrophils # (Auto) 10.5H, Lymphocytes # (Auto) 0.6L, Monocytes # (Auto) 0.9, Eosinophils # (Auto) 0.0, Basophils # (Auto) 0.0, Immature Granulocyte # (Auto) 0.1, Neutrophils % (Manual) 92, Lymphocytes % (Manual) 5, Monocytes % (Manual) 3, Hypochromasia MOD ERATE, Microcytosis MODERATE, Sodium Level 136, Potassium Level 4.9, Chloride Level 106, Carbon Dioxide Level 17L, Anion Gap 13, Blood Urea Nitrogen 35H, Creatinine 1.95H, Estimat Glomerular Filtration Rate 35, BUN/Creatinine Ratio 18, Glucose Level 262H, Calcium Level 9.3, Corrected Calcium 9.7, Phosphorus Level 3.6, Magnesium Level 2.4, Total Bilirubin 0.4, Aspartate Amino Transf (AST/SGOT) 25, Alanine Aminotransferase (ALT/SGPT) 15, Alkaline Phosphatase 29L, C-Reactive Protein High Sensitivity 0.68H, Total Protein 6.7, Albumin 3.5, Triglycerides Level 80, Cholesterol Level 126, LDL Cholesterol Direct 69, VLDL Cholesterol 16, HDL Cholesterol 42 07/03/21 06:21: Glucometer 156H 07/03/21 10:01: Glucometer 166H Physical Exam Physical Exam Vital Signs Vital Signs - First Documented 07/02/21 07/02/21 07/02/21 10:15 17:12 19:08 Temp 35.6 Pulse 108 Resp 20 B/P (MAP) 105/88 Pulse Ox 97 O2 Delivery Room Air O2 Flow Rate 2.00 FiO2 91 Capillary Refill : Less Than 3 Seconds Height, Weight, BMI Height: 5'8.00" Weight: 205lbs. 0.0oz. 92.362629ty; 32.22 BMI Method:Stated General Appearance: No Apparent Distress Eyes: Bilateral Eye Normal Inspection, Bilateral Eye PERRL, Bilateral Eye EOMI HEENT: PERRL/EOMI Neck: Non Tender, Supple Respiratory: Chest Non Tender, Lungs Clear Cardiovascular: Regular Rate, Rhythm, Gallop/S3 Gastrointestinal: Non Tender, Soft Back: No CVA Tenderness Extremity: Non Tender, No Calf Tenderness Neurologic/Psychiatric: Alert, Oriented x3 Skin: Normal Color, Warm/Dry Lymphatic: No Adenopathy A/P-Cardiology Admission Diagnosis Chest pain Myasthenia gravis CAD CHF Assessment/Plan Chest pain, resembling unstable angina, likely d/t small vessel disease. Patient with extensive CAD as discussed below. Continue conservative management Myasthenia gravis, with h/o myasthenia crises, possible acute exacerbation. Treated at [facility] with plasmapheresis, prednisone and pyridostigmine and ivIg. Recommend neurology evaluation. CHF, Dilated cardiomyopath. Echo of 07/04/20: showed LVEF 40-45%, restrictive filling pattern / diastolic dysfunction, mild MAC, mildly to mod dilated LA, hypokinesis to akinesis of anteroseptal and apical myocardium, RVSP 30 mmHg.On continuous milrinone infusion. Managed by Heart Failure clinic at . 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 The mid left anterior descending artery has a widely patent stented segment (known to be overlapping Promus 3.0 x 12 and 2.25 x 16 mm stents, the overlap of which has previously been treated with a 3 mm balloon). The right coronary artery exhibits a chronic total occlusion within the stented distal part of the vessel and attempts at percutaneous intervention to this vessel today were unsuccessful. The left circumflex artery exhibits mild plaque. Mildly elevated left ventricular end-diastolic pressure. Last cath on 06/21/20 at [facility] with similar results (severe, diffuse, distal disease), no intervention done. Continue conservative management. Recent pneumonia Labile hypertension- continue to monitor blood pressure. Anxiety DM Carotid arterial disease, monitored as outpatient. Peripheral arterial disease. S/p bilateral leg artery interventions by Dr Layton in Jul and Aug 2014. Thank you for allowing us to participate in the management of Mr. Contreras. This is Marian Mark PA-C, as a scribe for Dr. Hanson. Patient was seen and evaluated with Marian, he is a 65-year-old gentleman with extensive disease as described above, admitted for malfunctioning of his port During his hospitalization he has been complaining of weakness, generalized fatigue, unable to move his extremities in addition he had an episode of chest pain yesterday with shortness of breath. EKG did not show any acute abnormality. Patient is known to have extensive coronary artery disease that is deemed inoperable and he was on the heart transplant list versus heart failure. I visited with him today, from my standpoint he is okay for discharge to follow- up with the heart failure clinic at Patient is very concerned about his myasthenia gravis and inquiring about his generalized fatigue and inability to do his daily activity in addition to his sore throat He has called his neurologist at and his neurologist is communicating with our hospitalist on his management plan Continue on current medication, okay for discharge by cardiology and follow-up at the heart transplant clinic. MARIAN BATES Jul 03, 2021 13:50 RAMIRO HANSON MD Jul 03, 2021 15:05
--- NOTE | 2021-07-03 13:56 | Occupational Therapy Eval ---
OT Evaluation-General/PLF Medical Diagnosis Admission Date Jul 02, 2021 at 14:42 Medical Diagnosis: Myasthenia Gravis, End stage CHF, Chest pain, CAD Onset Date: Jun 29, 2021 Therapy Diagnosis Therapy Diagnosis: decreased ADL status Height/Weight Height (Feet): 5 Height (Inches): 8.00 Weight (Pounds): 205 Weight (Ounces): 0.0 Precautions Precautions/Isolations: Contact Isolation, Fall Prevention Referral Physician: Dr. Cedeño Referral Reason: Evaluation/Treatment Medical History Pertinent Medical History: ASVD, CAD, DM, Heart Failure, HTN, VT, PVD, Renal Insufficiency Additional Medical History ASVD, CAD, DM, heart failure, HTN, VT, PVD, renal insufficiency Current History ED due to difficulty swallowing medications with home health nurse. Social History Home: Single Level Current Living Status: Spouse Entry Into Home: Stairs With Railing Steps Into Home: 2 ADL-Prior Level of Function SCALE: Activities may be completed with or without assistive devices. 7-Zfctwafmmn-ndaoeef completes the activity by him/herself with no assistance from a helper. 5-Set-up or Clean-up Assistance-helper sets up or cleans up; patient completes a ctivity. Pecos assists only prior to or following the activity. 4-Supervision or Touching Assistance-helper provides verbal cues and/or touching/steadying and/or contact guard assistance as patient completes activity. Assistance may be provided throughout the activity or intermittently. 3-Partial/Moderate Assistance-helper does LESS THAN HALF the effort. Pecos lifts, holds or supports trunk or limbs, but provides less than half the effort. 2-Substantial/Maximal Assistance-helper does MORE THAN HALF the effort. Pecos lifts or holds trunk or limbs and provides more than half the effort. 6-Upfqmxmvw-kluriz does ALL the effort. Patient does none of the effort to complete the activity. Or, the assistance of 2 or more helpers is required for the patient to complete the activity. If activity was not attempted, code reason: 7-Patient Refused. 9-Not Applicable-not attempted and the patient did not perform the activity before the current illness, exacerbation or injury. 10-Not Attempted due to Environmental Limitations-(lack of equipment, weather restraints, etc.). 88-Not Attempted due to Medical Conditions or Safety Concerns. ADL PLOF Comments Pt reports he is typically independent with ADLs and functional mobility, no AD. He has a walk in shower with a SC. He owns a cane and a w/c, but does not use them. Self Care: Independent Functional Cognition: Independent OT Current Status Subjective Pt laying in bed, states his MG is acting up. He feels weak and states he is not ready to go home, as he has to be independent at discharge. 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 Mental Status/Objective Patient Orientation: Person, Place, Situation Attachments: Oxygen Current Upper Extremity ROM Decreased, BUE shoulder flexion to approx 90 degrees, WFL at elbow/wrist/hand. Pt indicates fatigue, and motion decreases with increased reps. Upper Extremity Coordination WFL Upper Extremity Strength grossly 3/5 ADL-Treatment Eating (QC): 6 (Per pt report.) Oral Hygiene (QC): 7 (Pt declined as he is too fatigued.) Other Treatments Pt in bed, OT educated pt on purpose and benefit of OT. Pt then provided information about PLOF and home set up, and participated in UE screen. OT educated pt on activity modifications and energy conservation techniques to implement at home, he verbalized understanding. OT encouraged pt to complete BUE exercises in order to increase BUE Strength and activity tolerance, pt able to perform shoulder flexion x1 rep to approx 90 degrees, second rep to 30 degrees. Pt states he is unable to complete further exercise due to fatigue and weakness. Pt declines attempting any further exercises. Post tx, pt in bed, call light in reach and all needs met. As OT left the room, pt was holding call light in hands, elbows flexed to 90 degrees above his chest, he then rolled onto L side independently. Education OT Patient Education: Correct positioning, Energy conservation, Modified ADL techniques, Progress toward Goal/Update tx plan, Purpose of tx/functional activities Teaching Recipient: Patient Teaching Methods: Discussion Response to Teaching: Verbalize Understanding OT Half-Way Goals Belt Builder Helper Goals Time Frame: Jul 19, 2021 Eating (QC): 6 Oral Hygiene (QC): 6 Toileting Hygiene (QC): 4 Shower/Bathe Self (QC): 4 Upper Body Dressing (QC): 6 Lower Body Dressing (QC): 4 On/Off Footwear (QC): 4 Additional Goals: 1-Demonstrate ADL Tasks, 2-Verbalize Understanding, 3-ImproveStrength/Mitul 1=Demonstrate adherence to instructed precautions during ADL tasks. 2=Patient will verbalize/demonstrate understanding of assistive devices/modifications for ADL. 3=Patient will improve strength/tolerance for activity to enable patient to perform ADL's. OT Education/Plan Problem List/Assessment Assessment: Decreased Activ Tolerance, Decreased UE Strength, Impaired Funct Balance, Impaired I ADL's, Impaired Self-Care Skills, Restricted Funct UE ROM Discharge Recommendations Plan/Recommendations: Continue POC Therapy Discharge Recommendati: Home & Family, Post Acute OT (home health therapy) Treatment Plan/Plan of Care Patient would benefit from OT for education, treatment and training to promote independence in ADL's, mobility, safety and/or upper extremity function for ADL's. Plan of Care: ADL Retraining, Functional Mobility, UE Funct Exercise/Act Treatment Duration: Jul 19, 2021 Frequency: 5 times per week Agreement: Yes Rehab Potential: Fair Time/GCodes Start Time: 13:15 Stop Time: 13:30 Total Time Billed (hr/min): 15 Billed Treatment Time 1JUAN ADDISON OT Jul 03, 2021 13:56
--- NOTE | 2021-07-03 15:20 | Diagnostic Imaging Report ---
Portable lateral chest at 2:38. Indication: Check line placement Multiple previous AP views of the chest has shown a right-sided PICC line and a right-sided Port-A-Cath in place. On this exam the PICC line and the Port-A-Cath tip seen to be in the expected region of the distal superior superior vena cava. Therefore I do feel there are most likely adequately positioned. If further evaluation is desired, then contrast could be injected into the lines under fluoroscopy. Impression: 1. The tips of the right-sided PICC line and Port-A-Cath appear to be in the region of the distal superior vena cava. 2. The results were called to Elda, the supervisor dimension warehouse. Dictated by: Dictated on workstation # [id number]
[2021-07-03] MEDS: ISOSORBIDE MONONITRATE 60 MG (IMDUR) TAB PO SCH (20:21)
--- NOTE | 2021-07-03 21:57 | CONSULTATION REPORT ---
DATE OF SERVICE: 07/03/2021 ADMITTING PHYSICIAN: Dr. Leung. HISTORY OF PRESENT ILLNESS: The patient is a 65-year-old male with a number of medical comorbidities. He has a past medical history encompassing myasthenia gravis, atrial fibrillation, severe congestive heart failure and chronic kidney disease. He requires milrinone drip for inotropic support. He was admitted for chest pain as well as shortness of breath. He was admitted and there was a question of IV access. He has a very poor peripheral venous circulation and at this time has what appears to be a Groshong port as well as a right subclavian PICC line, which was placed by interventional radiology at [facility]. From our understanding, this was tunneled and then placed by interventional radiology and this access was solely used for the milrinone drip. The port was accessed and is functional and was used. The subclavian PICC line was nonfunctional, however, after the administration of tissue plasminogen activator, is now functional and being used for his milrinone drip. PAST MEDICAL HISTORY: Coronary artery disease, severe congestive heart failure, atrial fibrillation, pneumonia, sleep apnea, hypercholesterolemia, hypertension, peripheral vascular disease, history of TIA, gastroesophageal reflux disease, diabetes. PAST SURGICAL HISTORY: Pacemaker implantation, cardiac catheterization and stent placement, ear surgery, orthopedic procedures. ALLERGIES: ALBUMIN, CARVEDILOL, CODEINE, TRAZODONE. MEDICATIONS: Aspirin, atorvastatin, cefdinir, diphenhydramine, duloxetine, eculizumab, furosemide, gabapentin, hydromorphone, insulin, glargine insulin, isosorbide mononitrate, metolazone, Protonix, penicillin V, potassium, prednisone, pyridostigmine, ranolazine, spironolactone, milrinone, cefdinir, doxycycline, metoprolol, Entresto, Bactrim. SOCIAL HISTORY: Previous smoking. Does use THC occasionally. Negative for alcohol. FAMILY HISTORY: Mother and father, hypertension, coronary artery disease. Mother, lung cancer. Father, CVA. VITAL SIGNS: Temperature 36.7, blood pressure 102/66, pulse 100, respiration 15, pulse ox 87% on 2 liters nasal cannula. REVIEW OF SYSTEMS: Well-nourished male currently in no acute distress. He is not experiencing any shortness of breath and difficulty breathing. No chest pain, palpitations, diaphoresis. He does have exertional shortness of breath with intermittent cough that is nonproductive. No nausea or vomiting. No diarrhea or constipation. No red blood per rectum. No dark tarry stools. No fever, chills, no recent inadvertent weight loss. All other review of systems negative. PHYSICAL EXAMINATION: CHEST: Scattered rales bilaterally. HEART: Regular, no murmurs. EXTREMITIES: A +1/3 bilateral lower extremity edema, negative Homans sign. HEENT: No scleral icterus. NECK: No cervical lymphadenopathy. ABDOMEN: Soft, nontender, nondistended. SKIN: Warm, dry. LABORATORY DATA: WBC 12.1, hemoglobin 9.1, hematocrit 31, platelets 317. BUN 35, creatinine 1.95. ASSESSMENT AND PLAN: A 65-year-old male with severe congestive heart failure with an ejection fraction of approximately 15-20%, who is in the process of getting on a heart . He is currently dependent on phosphodiesterase inhibitor drip to maintain cardiac function and adequate perfusion. He has poor peripheral circulation. However, he does have what appears to be a right subclavian Groshong implantable catheter as well as a tunneled right subclavian PICC line placed by interventional radiology, which was initially nonfunctional however, after the administration of tissue plasminogen activator is functional and now has adequate IV access for his milrinone drip as well as other IV medical pharmaceutical therapeutics. Job ID: [id number] DocumentID: [id number] Dictated Date: 07/03/2021 21:06:10 Storage Battery Charger Date: 07/03/2021 21:56:39 Dictated By: ROSALINDA PEREZ MD
[2021-07-04] VITALS (17 sets, daily range): BP systolic 84–136; BP diastolic 49–76
[2021-07-04 04:05] LABS: BASOPHILS % (AUTO) 0 % (0-10); EOSINOPHILS # (AUTO) 0.3 10^3/uL (0.0-0.3); EOSINOPHILS % (AUTO) 3 % (0-10); HEMATOCRIT 26 % (40-54); HEMOGLOBIN 7.6 g/dL (13.3-17.7); LYMPHOCYTES # (AUTO) 1.4 10^3/uL (1.0-4.0); LYMPHOCYTES % (AUTO) 12 % (12-44); MEAN CORPUSCULAR HEMOGLOBIN 22 pg (25-34); MEAN CORPUSCULAR HGB CONC 29 g/dL (32-36); MEAN CORPUSCULAR VOLUME 77 fL (80-99); MEAN PLATELET VOLUME 9.6 fL (9.0-12.2); MONOCYTES # (AUTO) 0.7 10^3/uL (0.0-1.0); MONOCYTES % (AUTO) 6 % (0-12); NEUTROPHILS # (AUTO) 8.9 10^3/uL (1.8-7.8); NEUTROPHILS % (AUTO) 79 % (42-75); PLATELET COUNT 237 10^3/uL (130-400); WHITE BLOOD COUNT 11.4 10^3/uL (4.3-11.0)
[2021-07-04 04:23] LABS: ANISOCYTOSIS SLIGHT; BAND NEUTROPHILS 0 %; BASOPHILS % (MANUAL) 0 %; ELLIPT/OVALOCYTES SLIGHT; EOSINOPHILS % (MANUAL) 4 %; HYPOCHROMASIA MODERATE; LYMPHOCYTES % (MANUAL) 18 %; MONOCYTES % (MANUAL) 4 %; NEUTROPHILS % (MANUAL) 74 %; POLYCHROMASIA SLIGHT; ROULEAUX SLIGHT; TEAR DROP CELLS SLIGHT
[2021-07-04 04:37] LABS: ALBUMIN 3.1 GM/DL (3.2-4.5); POTASSIUM 4.1 MMOL/L (3.6-5.0)
[2021-07-04 04:38] LABS: CALCIUM 8.5 MG/DL (8.5-10.1)
[2021-07-04 04:40] LABS: TOTAL PROTEIN 5.8 GM/DL (6.4-8.2)
[2021-07-04 04:41] LABS: BILIRUBIN,TOTAL 0.4 MG/DL (0.1-1.0)
[2021-07-04 04:43] LABS: CREATININE SERUM 1.98 MG/DL (0.60-1.30); PHOSPHORUS 4.2 MG/DL (2.3-4.7)
[2021-07-04 04:46] LABS: MAGNESIUM 1.9 MG/DL (1.6-2.4)
[2021-07-04] MEDS: POTASSIUM CL 10MEQ/50ML IVPB 50 ML IV SCH (05:19)
[2021-07-04] MEDS: DOXYCYCLINE INJECTION 100 MG in NS (IVPB) 100 ML IV SCH (05:20)
[2021-07-04] MEDS: PYRIDOSTIGMINE 60 MG TAB (MESTINON) NON-FORMULARY PO SCH ×3 (05:20→11:07)
[2021-07-04] MEDS: KCL 20 MEQ TAB (K-DUR) PO SCH (05:20)
[2021-07-04] MEDS: MAGNESIUM 1 GM/100 ML IVPB 100 ML IV SCH (05:20)
[2021-07-04] MEDS: HYDROmorphone 2 MG/ML VIAL (DILAUDID) IV PRN ×5 (05:21→16:39)
[2021-07-04] MEDS: inSUlin ASPART (NovoLOG) 1 UNIT/0.01 ML (CHARGE PER UNIT) SC SCH ×6 (06:44→17:04)
[2021-07-04] MEDS: RT-ALBUTEROL SULF 2.5 MG/3 ML PRE-MIX VIAL INH SCH (07:48)
[2021-07-04] MEDS: PANTOPRAZOLE 40 MG (PROTONIX) TAB PO SCH (08:41)
[2021-07-04] MEDS: SACUBITRIL/VALSARTAN 24/26 MG (ENTRESTO) TABLET PO SCH (08:41)
[2021-07-04] MEDS: RANOLAZINE ER 500 MG TAB (RANEXA) PO SCH (08:41)
--- NOTE | 2021-07-04 08:59 | Cardiology Progress Note ---
Subjective Date Seen by Provider: Jul 04, 2021 Time Seen by Provider: 08:57 Subjective/Events-last exam Patient was seen at bedside, sitting comfortably, feeling better today, noticing some increasing dyspnea Review of Systems General: No Chills, No Night Sweats; Fatigue; No Malaise, No Appetite, No Other HEENT: No Head Aches, No Visual Changes, No Eye Pain, No Ear Pain, No Dysphasia, No Sinus Congestion, No Post Nasal Drip, No Sore Throat, No Other Pulmonary: Dyspnea; No Cough, No Pleuritic Chest Pain, No Other Cardiovascular: No: Chest Pain, Palpitations, Orthopnea, Paroxysmal Noc. Dyspnea, Edema, Lt Headedness, Other Focused Exam Lactate Level 07/02/21 11:00: Lactic Acid Level 1.88 Objective-Cardiology Exam Last Set of Vital Signs Vital Signs 07/02/21 07/04/21 07/04/21 07/04/21 19:43 06:00 07:50 08:20 Temp 37.2 Pulse 83 Resp 15 B/P (MAP) 104/66 (79) Pulse Ox 97 O2 Delivery Nasal Cannula O2 Flow Rate 2.00 FiO2 99 I&O Intake and Output 07/04/21 00:00 Intake Total 1700 ml Output Total 2200 ml Balance -500 ml Intake Oral 1700 ml Output Urine Total 2200 ml General: Alert, Oriented X3, Cooperative HEENT: Atraumatic, PERRLA Neck: Supple, No JVD, No Thyromegaly Lungs: Normal Air Movement, Other (Bilateral rhonchi) Heart: Regular Rate, Normal S1, Normal S2, No Murmurs Abdomen: Normal Bowel Sounds, Soft, No Tenderness, No Hepatosplenomegaly, No Masses Extremities: No Clubbing, No Cyanosis, No Edema, Normal Pulses, No Tenderness/Swelling Skin: No Rashes, No Breakdown, No Significant Lesion Neuro: Normal Gait, Normal Speech, Strength at 5/5 X4 Ext, Normal Tone, Sensation Intact Psych/Mental Status: Mental Status NL, Mood NL Results Lab Laboratory Tests 07/04/21 03:58 A/P-Cardiology Admission Diagnosis Chest pain Myasthenia gravis CAD CHF Assessment/Plan Chest pain, resembling unstable angina, likely d/t small vessel disease. Patient with extensive CAD as discussed below. Continue conservative management Myasthenia gravis, with h/o myasthenia crises, possible acute exacerbation. Treated at [facility] with plasmapheresis, prednisone and pyridostigmine and ivIg. Recommend neurology evaluation. CHF, Dilated cardiomyopath. Echo of 07/04/20: showed LVEF 40-45%, restrictive filling pattern / diastolic dysfunction, mild MAC, mildly to mod dilated LA, hypokinesis to akinesis of anteroseptal and apical myocardium, RVSP 30 mmHg.On continuous milrinone infusion. Managed by Heart Failure clinic at . 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 Hyperlipidemia - intolerant to statin (muscle discomfort) Diagnosed with SLE by his pcp in early 2017 (managed by pcp) DERECK, treated with CPAP CAD - Cath on 09/27/19 at [place], [place]: Coronary artery disease consisting of severe distal disease of the terminal left anterior descending where the vessel is of a very small caliber and not amenable to intervention. The mid left anterior descending artery has a widely patent stented segment (known to be overlapping Promus 3.0 x 12 and 2.25 x 16 mm stents, the overlap of which has previously been treated with a 3 mm balloon). The right coronary artery exhibits a chronic total occlusion within the stented distal part of the vessel and a ttempts at percutaneous intervention to this vessel today were unsuccessful. The left circumflex artery exhibits mild plaque. Mildly elevated left ventricular end-diastolic pressure. Last cath on 06/21/20 at [facility] with similar results (severe, diffuse, distal disease), no intervention done. Continue conservative management. Recent pneumonia Labile hypertension- continue to monitor blood pressure. Anxiety DM Carotid arterial disease, monitored as outpatient. Peripheral arterial disease. S/p bilateral leg artery interventions by Dr Layton in Jul and Aug 2014. RAMIRO GILL MD Jul 04, 2021 08:59
[2021-07-04] MEDS ORDERED: FUROSEMIDE 40 MG/4 ML INJ (LASIX) IVP NR (09:30)
--- NOTE | 2021-07-04 10:54 | Discharge Summary ---
Discharge Summary Hospital Course Problems/Dx: (1) End stage heart failure Status: Chronic (2) Occluded PICC line Status: Acute Qualifiers: Qualified Codes: T82.898A - Other specified complication of vascular prosthetic devices, implants and grafts, initial encounter (3) Right lower lobe pneumonia Status: Acute Qualifiers: Qualified Codes: J18.9 - Pneumonia, unspecified organism (4) Chronic chest pain Status: Acute (5) Coronary artery disease Status: Chronic (6) Myasthenia gravis Status: Chronic (7) Chronic kidney disease Status: Acute (8) IDDM (insulin dependent diabetes mellitus) Status: Acute (9) Receiving inotropic medication Status: Chronic Hospital Course Date of Admission: Jul 02, 2021 at 14:42 Admission Diagnosis : Occluded PICC line Family Physician/Provider: Claudia Mg Physician Date of Discharge: 07/04/21 Discharge Diagnosis: Occluded PICC line Hospital Course: Mickey Contreras is a 65 year old male with PMH end stage CHF on continuous milrinone infusion, myasthenia gravis, chronic kidney disease, who presented with an occluded PICC line. The line was evaluated by our PICC nurse and was fully functioning and well positioned. He also had issues with chest pain but had stable EKG and troponins. Cardiology was consulted and recommended continued conservative medical management and he was continued on his anti-anginals. He also reported weakness and difficulty swallowing and there was concern for myasthenia exacerbation. He was able to eat and drink without issue. He had difficulty working with therapy the first day but this seemed to be due to lack of effort. The next day he was able to walk and sit on the edge of the bed without issue. He had been taking antibiotics as an outpatient for pneumonia and these were continued. His chest xray appeared to be improving and his oxygen requirement was at baseline. He was stabilized and discharged home. He should resume home health care for nursing. Labs and Pending Lab Test: Laboratory Tests 07/03/21 14:39: Glucometer 284H 07/03/21 16:44: Glucometer 147H 07/03/21 19:36: Glucometer 79 07/04/21 01:24: Glucometer 77 07/04/21 03:56: Glucometer 137H 07/04/21 03:58: White Blood Count 11.4H, Red Blood Count 3.39L, Hemoglobin 7.6L, Hematocrit 26L, Mean Corpuscular Volume 77L, Mean Corpuscular Hemoglobin 22L, Mean Corpuscular Hemoglobin Concent 29L, Red Cell Distribution Width 15.8H, Platelet Count 237, Mean Platelet Volume 9.6, Immature Granulocyte % (Auto) 0, Neutrophils (%) (Auto) 79H, Lymphocytes (%) (Auto) 12, Monocytes (%) (Auto) 6, Eosinophils (%) (Auto) 3, Basophils (%) (Auto) 0, Neutrophils # (Auto) 8.9H, Lymphocytes # (Auto) 1.4, Monocytes # (Auto) 0.7, Eosinophils # (Auto) 0.3, Basophils # (Auto) 0.0, Immature Granulocyte # (Auto) 0.1, Neutrophils % (Manual) 74, Lymphocytes % (Manual) 18, Monocytes % (Manual) 4, Eosinophils % (Manual) 4, Basophils % (Manual) 0, Band Neutrophils 0, Polychromasia SLIGHT, Hypochromasia MODERATE, Basophilic Stippling SLIGHT, Anisocytosis SLIGHT, Tear Drop Cells SLIGHT, Elliptocytes SLIGHT, Rouleau SLIGHT, Sodium Level 134L, Potassium Level 4.1, Chloride Level 106, Carbon Dioxide Level 18L, Anion Gap 10, Blood Urea Nitrogen 40H, Creatinine 1.98H, Estimat Glomerular Filtration Rate 34, BUN/Creatinine Ratio 20, Glucose Level 135H, Calcium Level 8.5, Corrected Calcium 9.2, Phosphorus Level 4.2, Magnesium Level 1.9, Total Bilirubin 0.4, Aspartate Amino Transf (AST/SGOT) 21, Alanine Aminotransferase (ALT/SGPT) 13, Alkaline Phosphatase 25L, Total Protein 5.8L, Albumin 3.1L 07/04/21 09:55: Glucometer 115H Microbiology 07/02/21 MRSA Screen - Final, Complete MRSA not isolated 07/02/21 Blood Culture - Preliminary, Resulted No growth 07/02/21 Urine Culture - Final, Complete NO GROWTH Home Meds Active Reported Gammaplex 10 Gram/100 ml Vial (Immun Glob G(IgG)/Gly/Iga 0-50) 100 Ml Vial 50 Gm IV EVERY 2 WEEKS Benadryl Allergy (Diphenhydramine HCl) 25 Mg Tablet 25-50 Mg PO Q6H PRN Metolazone 5 Mg Tablet 5 Mg PO 1400 PRN Furosemide 80 Mg Tablet 80 Mg PO DAILY Isosorbide Mononitrate ER (Isosorbide Mononitrate) 60 Mg Tab 60 Meq PO HS K-Tab ER (Potassium Chloride) 10 Meq Tablet.er 10 Meq PO 2000 K-Tab ER (Potassium Chloride) 10 Meq Tablet.er 20 Meq PO DAILY TAKES 2 (10MEQ) TABS Spironolactone 25 Mg Tablet 12.5 Mg PO DAILY TAKES OF A 25MG TAB Penicillin V Potassium 500 Mg Tablet 500 Mg PO BID Hydromorphone HCl 4 Mg Tablet 4 Mg PO Q6H PRN Cefdinir 300 Mg Capsule 300 Mg PO BID FILLED 06-23-2021 #20/ DAY SUPPLY Pyridostigmine [place] 60 Mg Tablet 60 Mg PO QID [[id number]/325ML] 1 Ea IV UD RATE=1.8ML/HR DOSE RATE=0.25MCG/KG/MIN; WT=96KG DAILY DOSE=34.56MG; CONC=0.8MG/ML Magnesium (Magnesium Oxide) 400 Mg Tablet 400 Mg PO BID Prednisone 10 Mg Tab 10 Mg PO DAILY Ranolazine ER (Ranolazine) 1,000 Mg Tab.er.12h 1,000 Mg PO BID Gabapentin 600 Mg Tablet 600 Mg PO HS PRN Novolog Flexpen (Insulin Aspart) 300 Units/3 Ml Solution 30 Units SQ AC Soliris (Eculizumab) 300 Mg/30 Ml Vial 1,200 Mg IV EVERY 2 WEEKS Aspirin 81 Mg Tab.chew 81 Mg PO DAILY Vitamin D3 (Cholecalciferol (Vitamin D3)) 25 Mcg Capsule 25 Mcg PO BID Atorvastatin Calcium 80 Mg Tablet 80 Mg PO HS Basaglar Kwikpen U-100 (Insulin Glargine,Hum.rec.anlog) 100 Unit/1 Ml Insuln.pen 35 Units SC Q12H Furosemide 40 Mg Tablet 40 Mg PO 1400 Duloxetine HCl 30 Mg Capsule. 30 Mg PO DAILY Pantoprazole Sodium 40 Mg Tablet. 40 Mg PO BID Assessment/Pt Instructions Take medications as prescribed. Follow up with Dr. Dyer at [facility]. Return with worsening weakness, chest pain, or if you feel like you are getting worse. Discharge Planning: <30 minutes discharge planning Discharge Instructions Discharge Diet: Low Sodium Diet, ADA Diet Activity as Tolerated: Yes Consultations TeleICU Discharge Physical Examination Vital Signs Vital Signs Date Time Temp Pulse Resp B/P (MAP) Pulse Ox O2 Delivery O2 Flow Rate FiO2 07/04/21 09:00 112 20 109/62 (78) 96 Nasal Cannula 2.00 07/04/21 08:20 37.2 07/02/21 19:43 99 General Appearance: No Apparent Distress, Chronically ill, Obese HEENT: PERRL/EOMI, Pharynx Normal Respiratory: Lungs Clear, Normal Breath Sounds, No Respiratory Distress, Other (right chest port and PICC) Cardiovascular: Regular Rate, Rhythm, No Edema, No Murmur Gastrointestinal: Normal Bowel Sounds, Non Tender, Soft Extremity: Normal Inspection, Non Tender, No Pedal Edema Skin: Normal Color, Warm/Dry Neurologic/Psychiatric: Alert, Oriented x3, No Motor/Sensory Deficits, Normal Mood/Affect Allergies: Coded Allergies: albumin colloid, human (Verified Allergy, Unknown, 07/02/21) carvedilol (Verified Allergy, Unknown, 07/02/21) codeine (Verified Allergy, Unknown, PATIENT HAS RECEIVED MORPHINE WITHOUT ISSUE, 07/02/21) trazodone (Verified Allergy, Unknown, 07/02/21) Discharge Summary Date of Admission Jul 02, 2021 at 14:42 Date of Discharge Discharge Date: Jul 04, 2021 Discharge Time: 10:44 Admission Diagnosis Occluded PICC line Consults/Procedures Consulations TeleICU, Cardiology Discharge Diagnosis (1) End stage heart failure Status: Chronic (2) Occluded PICC line Status: Acute Qualifiers: Qualified Codes: T82.898A - Other specified complication of vascular prosthetic devices, implants and grafts, initial encounter (3) Right lower lobe pneumonia Status: Acute Qualifiers: Qualified Codes: J18.9 - Pneumonia, unspecified organism (4) Chronic chest pain Status: Acute (5) Coronary artery disease Status: Chronic (6) Myasthenia gravis Status: Chronic (7) Chronic kidney disease Status: Acute (8) IDDM (insulin dependent diabetes mellitus) Status: Acute (9) Receiving inotropic medication Status: Chronic MARITZA GUARDADO MD Jul 04, 2021 10:53
--- NOTE | 2021-07-04 13:58 | Occ Therapy Progress Note ---
Therapy Progress Note Pt seated up at EOB, stating he is planning on discharging later this evening after his gets off of work. Pt declined OT tx at this time, as he is already tired and wants to save his energy to go home. OT educated pt on purpose/benefit of OT, but he continued to pleasantly decline. OT will attempt tx again tomorrow if pt is still admitted. 1, refusal 1350 MARIANA DUGAN OT Jul 04, 2021 13:58
[2021-07-04] MEDS: cefTRIAXone 1,000 MG/SWFI 10 ML IV PUSH IV SCH ×2 (14:06)
[2021-07-04] MEDS ORDERED: DOXYCYCLINE 100 MG (VIBRAMYCIN) TABLET PO SCH (17:00)
--- NOTE | 2021-07-05 09:33 | Physician Query-Final Dx ---
Final Diagnosis Give Final Diagnosis Please give Final Diagnosis GODWIN SIMMONS Jul 05, 2021 09:33
== END 2021-07-04 17:38 | disposition home or self-care (01) ==
LOC: EDUNIT# 10:11 → ER 10:12 → 4TH 14:42 → ICU 19:50
PROVIDERS: ADMIT Internal Medicine; ATTEND Internal Medicine
DX: T82.898A Other specified complication of vascular prosthetic devices, implants and grafts, initial encounter (principal); G70.01 Myasthenia gravis with (acute) exacerbation; J18.1 Lobar pneumonia, unspecified organism; I42.9 Cardiomyopathy, unspecified; E78.00 Pure hypercholesterolemia, unspecified; I25.10 Atherosclerotic heart disease of native coronary artery without angina pectoris; K21.9 Gastro-esophageal reflux disease without esophagitis; M19.90 Unspecified osteoarthritis, unspecified site; M10.9 Gout, unspecified; H66.90 Otitis media, unspecified, unspecified ear; I13.2 Hypertensive heart and chronic kidney disease with heart failure and with stage 5 chronic kidney disease, or end stage renal disease; E11.22 Type 2 diabetes mellitus with diabetic chronic kidney disease; I50.9 Heart failure, unspecified; N18.6 End stage renal disease; F41.9 Anxiety disorder, unspecified; R00.0 Tachycardia, unspecified; E78.5 Hyperlipidemia, unspecified; G47.33 Obstructive sleep apnea (adult) (pediatric); I65.29 Occlusion and stenosis of unspecified carotid artery; I73.9 Peripheral vascular disease, unspecified; I49.3 Ventricular premature depolarization; I48.91 Unspecified atrial fibrillation; Z79.2 Long term (current) use of antibiotics; Z79.899 Other long term (current) drug therapy; Z79.4 Long term (current) use of insulin; Z95.5 Presence of coronary angioplasty implant and graft; Z95.0 Presence of cardiac pacemaker
CPT/HCPCS: 71045 ×2; 80053 ×3; 80061; 81000; 82947 ×3; 83605; 83735 ×3; 83874; 83880; 84100 ×2; 84484; 85007 ×2; 85025; 85027 ×2; 85610; 85730; 86141; 87040; 87081; 87088; 93005; 93041; 94640 ×3; 94664; 94760; 96361; 96374; 96375; 96376; 97161; 97166; 97530; 99284; G0378; 36415

== ENCOUNTER 2021-07-04 22:01 | Inpatient (IN) | payer MEDICARE, MEDICAID ==
[~2021-07-04] VITALS: Ht 172.7 cm; Wt 99.0 kg
[~2021-07-04 22:01] MED LIST changes: +DIPH25TA65 PO; +FURO80TA3 PO; +HYDR4TAB PO; +METO5TAB6 PO; +POTA10TA PO; +PRED10TA22 PO; +PYRI60TA PO; +[UNRECOGNIZED DRUG - CODE] IV
[2021-07-04] MEDS ORDERED: HYDROmorphone 2 MG/ML VIAL (DILAUDID) IV ONE (22:15)
[2021-07-04 22:27] LABS: BASOPHILS % (AUTO) 0 % (0-10); EOSINOPHILS # (AUTO) 0.4 10^3/uL (0.0-0.3); EOSINOPHILS % (AUTO) 4 % (0-10); HEMATOCRIT 28 % (40-54); HEMOGLOBIN 8.5 g/dL (13.3-17.7); LYMPHOCYTES # (AUTO) 1.1 10^3/uL (1.0-4.0); LYMPHOCYTES % (AUTO) 10 % (12-44); MEAN CORPUSCULAR HEMOGLOBIN 23 pg (25-34); MEAN CORPUSCULAR HGB CONC 30 g/dL (32-36); MEAN CORPUSCULAR VOLUME 76 fL (80-99); MONOCYTES # (AUTO) 0.7 10^3/uL (0.0-1.0); MONOCYTES % (AUTO) 6 % (0-12); NEUTROPHILS # (AUTO) 8.6 10^3/uL (1.8-7.8); NEUTROPHILS % (AUTO) 79 % (42-75); PLATELET COUNT 248 10^3/uL (130-400); WHITE BLOOD COUNT 10.9 10^3/uL (4.3-11.0)
[2021-07-04] MEDS ORDERED: ASPIRIN 81 MG CHEW (CHILDREN'S ASA) PO ONE (22:30)
[2021-07-04 22:36] LABS: ALBUMIN 3.7 GM/DL (3.2-4.5)
[2021-07-04 22:38] LABS: CALCIUM 8.5 MG/DL (8.5-10.1)
[2021-07-04 22:39] LABS: INR 1.1 (0.8-1.4); PROTHROMBIN TIME PATIENT 14.5 SEC (12.2-14.7); TOTAL PROTEIN 6.8 GM/DL (6.4-8.2)
[2021-07-04 22:41] LABS: BILIRUBIN,TOTAL 0.6 MG/DL (0.1-1.0)
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
[2021-07-04 22:43] LABS: CREATININE SERUM 2.22 MG/DL (0.60-1.30)
[2021-07-04 22:45] LABS: MAGNESIUM 1.7 MG/DL (1.6-2.4)
[2021-07-04 23:01] LABS: BILIRUBIN,URINE NEGATIVE (NEGATIVE); CLARITY,URINE CLEAR; COLOR,URINE YELLOW; GLUCOSE, URINE (UA) NEGATIVE (NEGATIVE); KETONES,URINE NEGATIVE (NEGATIVE); LEUKOCYTE ESTERASE ,URINE NEGATIVE (NEGATIVE); NITRITE,URINE NEGATIVE (NEGATIVE); PH,URINE 5.5 (5-9); PROTEIN,URINE NEGATIVE (NEGATIVE)
[2021-07-04 23:10] LABS: BACTERIA,URINE NEGATIVE /HPF; SQUAMOUS EPITHELIAL CELL,UR 0-2 /HPF
[2021-07-04] MEDS ORDERED: HEParin 1000 UNIT/ML (10ML VIAL) FOR BOLUS IV ONE (23:42)
[2021-07-04] MEDS ORDERED: HEParin DRIP 25000 UNIT/500ML 500 ML IV ONE (23:45)
[2021-07-05] MEDS ORDERED: HYDROmorphone 2 MG/ML VIAL (DILAUDID) IV ONE (01:15)
--- NOTE | 2021-07-05 05:12 | Tele-ICU Consult ---
History of Present Illness History of Present Illness Date Seen by Provider: Jul 05, 2021 Time Seen by Provider: 04:30 Date of Admission This virtual visit was conducted using real time audio/video. Thank you for asking us to see this patient for respiratory insufficiency and distress. Fully vaccinated. HPC: Recent events: Discharged yesterday PMH: CAD/stents CHF HL DM M Gravis PAD DERECK GERD SH: smoking history N FH: CAD ROS: as in HPI PE: Obese, appears comfortable. VSS HR 115 BP 130/70 RR 20 O2 sat 99% on 2 LPM. HEENT: No obvious masses, adenopathy or JVD. Chest: clear to auscultation. CV: RRR S1 S2 No murmur or added sounds. Abd: Non-tender. Bowel sounds Y. : Unremarkable. Jarvis N. FRIT COATER/psychiatric: Alert and oriented, grossly intact. No obvious focal findings. Extremities: 2+ edema. Capillary refill < 3 seconds. Skin: unremarkable. Results: Elevated Trop 3.159, BNP 846, BUN 43, Creat 2.22.. Decreased 8.5. CXR w cardiomegaly, mild congestion A/P: Respiratory insufficiency/distress: Cont O2 Available chart/ vitals / labs / images reviewed. Video assessment done using teleICU camera, rest of exam as per RN. Respiratory: Continue present management with O2, PRN Dilaudid. Add Lasix 80 mg IV once. Monitor for increasing oxygenation needs. Critical Care: critically ill patient. Cards to see. Discussed with PAUL Loja. Asked RN to reach out to eICU if any questions or concer ns later. Time spent with patient/coordination of care with other health professionals (mins): 25. Allergies and Home Medications Allergies Coded Allergies: albumin colloid, human (Verified Allergy, Unknown, 07/02/21) carvedilol (Verified Allergy, Unknown, 07/02/21) codeine (Verified Allergy, Unknown, PATIENT HAS RECEIVED MORPHINE WITHOUT ISSUE, 07/02/21) trazodone (Verified Allergy, Unknown, 07/02/21) Home Medications Aspirin 81 Mg Tab.chew, 81 MG PO DAILY, (Reported) Atorvastatin Calcium 80 Mg Tablet, 80 MG PO HS, (Reported) Cefdinir 300 Mg Capsule, 300 MG PO BID, (Reported) FILLED 06-23-2021 #20/10 DAY SUPPLY Cholecalciferol (Vitamin D3) 25 Mcg Capsule, 25 MCG PO BID, (Reported) Diphenhydramine HCl 25 Mg Tablet, 25-50 MG PO Q6H PRN for ALLERGY SYMPTOMS, (Reported) Duloxetine HCl 30 Mg Capsule.dr, 30 MG PO DAILY, (Reported) Eculizumab 300 Mg/30 Ml Vial, 1,200 MG IV EVERY 2 WEEKS, (Reported) Furosemide 40 Mg Tablet, 40 MG PO 1400, (Reported) Furosemide 80 Mg Tablet, 80 MG PO DAILY, (Reported) Gabapentin 600 Mg Tablet, 600 MG PO HS PRN for PAIN-BREAKTHROUGH, (Reported) Hydromorphone HCl 4 Mg Tablet, 4 MG PO Q6H PRN for PAIN-SEVERE (8-10), (Rep orted) Immun Glob G(IgG)/Gly/Iga 0-50 100 Ml Vial, 50 GM IV EVERY 2 WEEKS, (Reported) Insulin Aspart 300 Units/3 Ml Solution, 30 UNITS SQ AC, (Reported) Insulin Glargine,Hum.rec.anlog 100 Unit/1 Ml Insuln.pen, 35 UNITS SC Q12H, (Reported) Isosorbide Mononitrate 60 Mg Tab, 60 MEQ PO HS, (Reported) Magnesium Oxide 400 Mg Tablet, 400 MG PO BID, (Reported) Metolazone 5 Mg Tablet, 5 MG PO 1400 PRN for 2 LB GAIN IN 24 HRS, (Reported) Pantoprazole Sodium 40 Mg Tablet.dr, 40 MG PO BID, (Reported) Penicillin V Potassium 500 Mg Tablet, 500 MG PO BID, (Reported) Potassium Chloride 10 Meq Tablet.er, 20 MEQ PO DAILY, (Reported) TAKES 2 (10MEQ) TABS Potassium Chloride 10 Meq Tablet.er, 10 MEQ PO 2000, (Reported) Prednisone 10 Mg Tab, 10 MG PO DAILY, (Reported) Pyridostigmine [place] 60 Mg Tablet, 60 MG PO QID, (Reported) Ranolazine 1,000 Mg Tab.er.12h, 1,000 MG PO BID, (Reported) Spironolactone 25 Mg Tablet, 12.5 MG PO DAILY, (Reported) TAKES OF A 25MG TAB [[id number]/325ML] , 1 EA IV UD, (Reported) RATE=1.8ML/HR DOSE RATE=0.25MCG/KG/MIN; WT=96KG DAILY DOSE=34.56MG; CONC=0.8MG/ML Past Medical/Social/Family Hx Patient Social History Tobacco Use?: No Use of E-Cig and/or Vaping dev: No Substance use?: No Alcohol Use?: No Pt stated abuse/neglect: No Immunizations Up To Date First/Initial COVID19 Vaccinat: Nov 03, 2020 Second COVID19 Vaccination [place]: February 01, 2021 Tetanus Booster (TDap): Less Than 5 Years Hepatitis A: Yes Hepatitis B: Yes TB Skin Test: Negative Date of Pneumonia Vaccine: Apr 14, 2017 Current Status Advance Directives: No Communicates: Verbally Primary Language: Tongan Preferred Spoken Language: Tongan Is interpretation needed?: No Implanted or Applied Medical D: None Past Medical History Diastolic dysfunction with EF of 50-55%, per echo 07/2019 but [facility] 11/30/20 Myasthenia gravis 15% EF 25% Multiple stents [place] Neuropathy Esophageal Ulcers Arthritis Diabetes Mellitus, insulin dependent Anxiety CAD inoperable awaiting heart transplant Review of Systems Constitutional: see HPI EENTM: see HPI Respiratory: see HPI Gastrointestinal: see HPI Genitourinary: see HPI Musculoskeletal: see HPI Skin: see HPI Psychiatric/Neurological: See HPI (See free text.) Sepsis Event Evaluation Height, Weight, BMI Height: 5'8.00" Weight: 205lbs. 0.0oz. [id number]; 32.22 BMI Method:Stated Exam Exam Patient acknowledged, consented, and participated in this virtual visit which was conducted using real time audio/video Vital Signs Date Time Temp Pulse Resp B/P (MAP) Pulse Ox O2 Delivery O2 Flow Rate FiO2 07/04/21 22:01 99 Nasal Cannula 2.00 07/04/21 22:01 Nasal Cannula 2.00 07/04/21 22:01 36.9 115 20 129/69 (89) 99 Nasal Cannula Height & Weight Height: 5'8.00" Weight: 205lbs. 0.0oz. 92.907733vk; 32.22 BMI Method:Stated General Appearance: Obese Capillary Refill: Less Than 3 Seconds Peripheral Pulses: 1+ Dorsalis Pedis (R), 1+ Left Dors-Pedis (L) (Se free text) Gastrointestinal: non tender, soft Results Lab Laboratory Tests 07/04/21 20:14 Assessment/Plan Assessment/Plan See free text Critical Care: Critically Ill Patient ANDRE BOOGIE MD Jul 05, 2021 05:12
[2021-07-05] MEDS ORDERED: FUROSEMIDE 40 MG/4 ML INJ (LASIX) IVP ONE (05:15)
[2021-07-05] MEDS ORDERED: HEParin DRIP 25000 UNIT/500ML 500 ML IV SCH (05:30)
[2021-07-05] MEDS ORDERED: NS IV 1000 ML 1,000 ML IV SCH (05:30)
[2021-07-05] MEDS ORDERED: ONDANSETRON 4 MG/2 ML (SDV) Z0FRAN IV PRN (05:30)
[2021-07-05] MEDS: HYDROmorphone 2 MG/ML VIAL (DILAUDID) IV PRN ×5 (05:42→18:28)
[2021-07-05] MEDS ORDERED: FUROSEMIDE 40 MG/4 ML INJ (LASIX) IV SCH (07:00)
--- NOTE | 2021-07-05 08:03 | Diagnostic Imaging Report ---
INDICATION: Chest pain COMPARISON: 07/03/2021 TECHNIQUE: Single frontal radiograph of the chest dated 07/05/2021. FINDINGS: Pacer/AICD is again identified with battery pack overlying left chest. Right-sided Port-A-Cath is again identified and stable. Right sided subclavian central venous catheter is again noted and unchanged. The cardiac silhouette is enlarged, though stable. No significant pulmonary vascular congestion. The lungs are clear of focal pulmonary opacity. Chronic appearing right-sided rib fractures are again noted. Chronic metallic densities overlying the right chest wall are again seen and stable. No acute osseous abnormality. IMPRESSION: Similar-appearing examination demonstrating postsurgical and posttraumatic changes and cardiomegaly without superimposed acute cardiopulmonary abnormality. Dictated by: Dictated on workstation # [id number]
--- NOTE | 2021-07-05 09:40 | Consultation-Cardiology ---
HPI-Cardiology Cardiology Consultation: Date of Consultation 07/05/2021 Date of Admission 07/04/2021 Attending Physician Tarsha Cedeño DO Admitting Physician Haritha,Local Physician Consulting Physician IDRIS BA JR, MD HPI: Time Seen by a Provider: 09:36 Chief Complaint: Reason for consultation: Heart failure and possible non-ST elevation myocardial infarction. I had the pleasure of seeing Mickey in the intensive care unit at [facility] in [place], [place] this morning. He has an extensive past cardiac history and follows with one of my partners here in [place] as well as with the advanced heart failure team at [facility]. He was here earlier in the week being treated for an exacerbation of his chronic systolic heart failure. Late yesterday afternoon he was discharged home. However, within a few hours of getting home, he developed worsening shortness of breath. He called 911 and was brought back to the hospital for further evaluation. He felt as though he was still gaining weight in the past 24 hours prior to discharge last evening. He has chronic intermittent chest discomfort. He has been taking ranolazine but does not think this helps. While he was here in the hospital on Thursday this week, he had a severe episode of chest discomfort. Troponin levels were obtained which were elevated but similar to his previous chronic elevated troponin levels. However, last evening his troponin level was markedly elevated. As such, in light of the heart failure and elevated troponin levels, another cardiology consultation was requested. This morning his breathing is slightly improved but not entirely back to his baseline normal. He has ongoing peripheral edema. His chest discomfort is back to his normal baseline. Dilaudid helps his chronic chest discomfort. He has had some lightheaded spells at times but denies syncope. He denies paroxysmal nocturnal dyspnea. He has some occasional orthopnea. He denies any palpitations. Certain portions of this document may have been dictated utilizing voice recognition technology. Inherent to this technology, typographical and grammatical errors may exist. As much as I am diligent to identify and correct these mistakes, some errors may remain in the document. Review of Systems-Cardiology Review of Systems Other comments Review of 10 organ systems is as per the history of present illness, otherwise negative. All Other Systems Reviewed Negative Unless Noted: Yes MOK-[id number]-Ujuszi Hx Patient Social History Smoking Status: Never a Smoker 2nd Hand Smoke Exposure: No Have you traveled recently?: No Alcohol Use?: No Pt feels they are or have been: No Immunizations Up To Date Tetanus Booster (TDap): More than 5yrs Date of Pneumonia Vaccine: Apr 14, 2017 Date of Influenza Vaccine: Jun 06, 2021 Past Medical History PMH As described under Assessment. Family Medical History Family Medical History: He reports his mother had CAD and HTN. He reports his father had HTN and a CVA. Family History: Alcoholism 19 FATHER Cancer 19 FATHER 19 MOTHER Chest pain 19 MOTHER Family history: Arthritis (grandmother) G8 SISTER Family history: Cardiovascular disease 19 MOTHER Family history: Diabetes mellitus G8 SISTER Family history: Hypertension 19 FATHER 19 MOTHER Hearing loss 19 FATHER Heart disease 19 MOTHER Malignant neoplasm of lung 19 MOTHER Myocardial infarction 19 MOTHER Stroke 19 FATHER Allergies and Home Medications Allergies Coded Allergies: albumin colloid, human (Verified Allergy, Unknown, 07/02/21) carvedilol (Verified Allergy, Unknown, 07/02/21) codeine (Verified Allergy, Unknown, PATIENT HAS RECEIVED MORPHINE WITHOUT ISSUE, 07/02/21) trazodone (Verified Allergy, Unknown, 07/02/21) Patient Home Medication List Home Medication List Reviewed: Yes Aspirin (Aspirin) 81 Mg Tab.chew, 81 MG PO DAILY, (Reported) Entered as Reported by: SLIME VELIZ on 12/17/20913 Last Action: Reviewed Atorvastatin Calcium (Atorvastatin Calcium) 80 Mg Tablet, 80 MG PO HS, (Reporte d) Entered as Reported by: SLIME VELIZ on 12/17/20913 Last Action: Reviewed Cefdinir (Cefdinir) 300 Mg Capsule, 300 MG PO BID, (Reported) Entered as Reported by: SLIME VELIZ on 07/03/21 103 Last Action: Reviewed Cholecalciferol (Vitamin D3) (Vitamin D3) 25 Mcg Capsule, 25 MCG PO BID, (Reported) Entered as Reported by: SLIME VELIZ on 12/17/20913 Last Action: Reviewed Diphenhydramine HCl (Benadryl Allergy) 25 Mg Tablet, 25-50 MG PO Q6H PRN for ALLERGY SYMPTOMS, (Reported) Entered as Reported by: SLIME VELIZ on 07/03/21 103 Last Action: Reviewed Duloxetine HCl (Duloxetine HCl) 30 Mg Capsule.dr, 30 MG PO DAILY, (Reported) Entered as Reported by: LOI KULKARNI on 12/16/201645 Last Action: Reviewed Eculizumab (Soliris) 300 Mg/30 Ml Vial, 1,200 MG IV EVERY 2 WEEKS, (Reported) Entered as Reported by: SLIME VELIZ on 12/17/20927 Last Action: Reviewed Furosemide (Furosemide) 40 Mg Tablet, 40 MG PO 1400, (Reported) Entered as Reported by: LOI KULKARNI on 12/16/201645 Last Action: Reviewed Furosemide (Furosemide) 80 Mg Tablet, 80 MG PO DAILY, (Reported) Entered as Reported by: SLIME VELIZ on 07/03/211031 Last Action: Reviewed Gabapentin (Gabapentin) 600 Mg Tablet, 600 MG PO HS PRN for PAIN-BREAKTHROUGH, (Reported) Entered as Reported by: SLIME VELIZ on 01/03/21943 Last Action: Reviewed Hydromorphone HCl (Hydromorphone HCl) 4 Mg Tablet, 4 MG PO Q6H PRN for PAIN- SEVERE (8-10), (Reported) Entered as Reported by: SLIME VELIZ on 07/03/211031 Last Action: Reviewed Immun Glob G(IgG)/Gly/Iga 0-50 ([place] 10 Gram/100 ml Vial) 100 Ml Vial, 50 GM IV EVERY 2 WEEKS, (Reported) Entered as Reported by: SLIME VELIZ on 07/03/211031 Last Action: Reviewed Insulin Aspart (Novolog Flexpen) 300 Units/3 Ml Solution, 30 UNITS SQ AC, ( Reported) Entered as Reported by: DENNISE BLAKELY on 01/03/21900 Last Action: Reviewed Insulin Glargine,Hum.rec.anlog (Basaglar Kwikpen U-100) 100 Unit/1 Ml Insuln.pen, 35 UNITS SC Q12H, (Reported) Entered as Reported by: SLIME VELIZ on 12/17/20913 Last Action: Reviewed Isosorbide Mononitrate (Isosorbide Mononitrate ER) 60 Mg Tab, 60 MEQ PO HS, (Reported) Entered as Reported by: SLIME VELIZ on 07/03/211031 Last Action: Reviewed Magnesium Oxide (Magnesium) 400 Mg Tablet, 400 MG PO BID, (Reported) Entered as Reported by: SLIME VELIZ on 04/22/21 1119 Last Action: Reviewed Metolazone (Metolazone) 5 Mg Tablet, 5 MG PO 1400 PRN for 2 LB GAIN IN 24 HRS, (Reported) Entered as Reported by: SLIME VELIZ on 07/03/21 103 Last Action: Reviewed Pantoprazole Sodium (Pantoprazole Sodium) 40 Mg Tablet.dr, 40 MG PO BID, (Reported) Entered as Reported by: JAMEY GUTIERREZ on 03/23/18 0850 Last Action: Reviewed Penicillin V Potassium (Penicillin V Potassium) 500 Mg Tablet, 500 MG PO BID, (Reported) Entered as Reported by: SLIME VELIZ on 07/03/21 103 Last Action: Reviewed Potassium Chloride (K-Tab ER) 10 Meq Tablet.er, 20 MEQ PO DAILY, (Reported) Entered as Reported by: SLIME VELIZ on 07/03/211031 Last Action: Reviewed Potassium Chloride (K-Tab ER) 10 Meq Tablet.er, 10 MEQ PO 2000, (Reported) Entered as Reported by: SLIME VELIZ on 07/03/211031 Last Action: Reviewed Prednisone (Prednisone) 10 Mg Tab, 10 MG PO DAILY, (Reported) Entered as Reported by: SLIME VELIZ on 04/22/21 110 Last Action: Reviewed Pyridostigmine [place] (Pyridostigmine [place]) 60 Mg Tablet, 60 MG PO QID, (Reported) Entered as Reported by: SLIME VELIZ on 07/03/211031 Last Action: Reviewed Ranolazine (Ranolazine ER) 1,000 Mg Tab.er.12h, 1,000 MG PO BID, (Reported) Entered as Reported by: HERMINIO ENAMORADO on 04/21/21 172 Last Action: Reviewed Spironolactone (Spironolactone) 25 Mg Tablet, 12.5 MG PO DAILY, (Reported) Entered as Reported by: SLIME VELIZ on 07/03/21 103 Last Action: Reviewed [[id number]/325ML] , 1 EA IV UD, (Reported) Entered as Reported by: SLIME VELIZ on 04/22/21 1137 Last Action: Reviewed Discontinued Medications Cefdinir (Cefdinir) 300 Mg Capsule, 300 MG PO BID Discontinued Reason: Duplicate Order Prescribed by: TRISHA CASTRO on 06/23/21 1218 Doxycycline Hyclate (Doxycycline Hyclate) 100 Mg Tablet, 100 MG PO BID Discontinued Reason: Duplicate Order Prescribed by: TRISHA CASTRO on 06/23/21 1218 Hydromorphone HCl (Hydromorphone HCl) 2 Mg Tablet, 2-4 MG PO Q6H PRN for PAIN- SEVERE (8-10), (Reported) Discontinued Reason: Duplicate Order Entered as Reported by: SLIME VELIZ on 01/03/21 0944 Immune Glob,Adriano Caprylate(IgG) (Gamunex-C) 40 Gm/400 Ml Vial, 50 GM IJ EVERY 4 WEEKS, (Reported) Discontinued Reason: Duplicate Order Entered as Reported by: SLIME VELIZ on 12/17/20 0928 Isosorbide Mononitrate (Isosorbide Mononitrate ER) 60 Mg Tab, 60 MG PO HS, (Reported) Discontinued Reason: Duplicate Order Entered as Reported by: DENNISE BLAKELY on 01/03/21 0901 Metoprolol Succinate (Metoprolol Succinate) 25 Mg Tab.er.24h, 12.5 MG PO DAILY, (Reported) Discontinued Reason: No Longer Taking Entered as Reported by: SLIME VELIZ on 04/22/21 1109 [place]-3 Fatty Acids/Fish Oil (Fish Oil 1,200 mg Softgel) 1 Each Capsule, 1 EACH PO HS, (Reported) Discontinued Reason: No Longer Taking Entered as Reported by: SLIME VELIZ on 12/17/20 0914 Pyridostigmine [place] (Mestinon) 60 Mg Tab, 60 MG PO QID, (Reported) Discontinued Reason: Duplicate Order Entered as Reported by: DINA FITZGERALD on 07/24/20 1147 Sacubitril/Valsartan (Entresto 24 mg-26 mg Tablet) 1 Each Tablet, 1 EA PO BID, (Reported) Discontinued Reason: No Longer Taking Entered as Reported by: DENNISE BLAKELY on 01/03/21 0901 Sulfamethoxazole/Trimethoprim (Bactrim Ds Tablet) 1 Each Tablet, 1 EA PO BID, (Reported) Discontinued Reason: No Longer Taking Entered as Reported by: SLIME VELIZ on 04/22/21 1109 Exam Vital Signs Vital Signs Date Time Temp Pulse Resp B/P (MAP) Pulse Ox O2 Delivery O2 Flow Rate FiO2 07/05/21 13:10 37.1 07/05/21 13:00 102 18 135/62 96 Nasal Cannula 3.00 07/05/21 12:43 97 Physical Exam General: Alert. No acute distress. Well nourished and appears stated age. Eye: Extraocular movements are intact. Conjunctivae are clear. There are no xanthelasma. HENT: Normocephalic. Atraumatic. Carotid pulsations 2/2 without bruits. Neck: Jugular venous pressure does not appear elevated. No thyromegaly appreciated. Respiratory: Lungs are clear to auscultation. Respirations are non-labored. Breath sounds are equal. Symmetrical chest wall expansion. Cardiovascular: Normal rate. Regular rhythm. 2/6 systolic ejection murmur. No gallop. Point of maximal impulse is not appear displaced. Good pulses equal in all extremities. 1+ bilateral pretibial edema. Gastrointestinal: Soft. Normal bowel sounds. Skin: Skin turgor is normal. There is no pallor. Musculoskeletal: No kyphosis or scoliosis appreciated. Neurologic: Alert and oriented to person, place, time. Cranial nerves 3-12 appear grossly intact. The patient has good motor tone strength in the upper and lower extremities bilaterally. Psychiatric: Cooperative. Appropriate mood & affect. Labs Laboratory Tests Test 07/04/21 20:14 07/04/21 20:15 07/04/21 22:20 07/05/21 04:30 Range/Units White Blood Count 10.9 4.3-11.0 10^3/uL Red Blood Count 3.75 L 4.30-5.52 10^6/uL Hemoglobin 8.5 L 13.3-17.7 g/dL Hematocrit 28 L 40-54 % Mean Corpuscular Volume 76 L 80-99 fL Mean Corpuscular Hemoglobin 23 L 25-34 pg Mean Corpuscular Hemoglobin Concent 30 L 32-36 g/dL Red Cell Distribution Width 15.9 H 10.0-14.5 % Platelet Count 248 130-400 10^3/uL Mean Platelet Volume 10.0 9.0-12.2 fL Immature Granulocyte % (Auto) 1 % Neutrophils (%) (Auto) 79 H 42-75 % Lymphocytes (%) (Auto) 10 L 12-44 % Monocytes (%) (Auto) 6 0-12 % Eosinophils (%) (Auto) 4 0-10 % Basophils (%) (Auto) 0 0-10 % Neutrophils # (Auto) 8.6 H 1.8-7.8 10^3/uL Lymphocytes # (Auto) 1.1 1.0-4.0 10^3/uL Monocytes # (Auto) 0.7 0.0-1.0 10^3/uL Eosinophils # (Auto) 0.4 H 0.0-0.3 10^3/uL Basophils # (Auto) 0.0 0.0-0.1 10^3/uL Immature Granulocyte # (Auto) 0.1 0.0-0.1 10^3/uL Prothrombin Time 14.5 12.2-14.7 SEC INR Comment 1.1 0.8-1.4 Activated Partial Thromboplast Time 30 104 H 24-35 SEC Sodium Level 131 L 135-145 MMOL/L Potassium Level 4.0 3.6-5.0 MMOL/L Chloride Level 102 98-107 MMOL/L Carbon Dioxide Level 18 L 21-32 MMOL/L Anion Gap 11 5-14 MMOL/L Blood Urea Nitrogen 43 H 7-18 MG/DL Creatinine 2.22 H 0.60-1.30 MG/DL Estimat Glomerular Filtration Rate 30 BUN/Creatinine Ratio 19 Glucose Level 151 H 70-105 MG/DL Calcium Level 8.5 8.5-10.1 MG/DL Corrected Calcium 8.7 8.5-10.1 MG/DL Magnesium Level 1.7 1.6-2.4 MG/DL Total Bilirubin 0.6 0.1-1.0 MG/DL Aspartate Amino Transf (AST/SGOT) 21 5-34 U/L Alanine Aminotransferase (ALT/SGPT) 15 0-55 U/L Alkaline Phosphatase 32 L 40-136 U/L Myoglobin 114.2 H 10.0-92.0 NG/ML Troponin I 3.159 *H <0.028 NG/ML B-Type Natriuretic Peptide 846.0 H <100.0 PG/ML Total Protein 6.8 6.4-8.2 GM/DL Albumin 3.7 3.2-4.5 GM/DL SARS-CoV-2 RNA (RT-PCR) Not Detected Not Detecte Urine Color YELLOW Urine Clarity CLEAR Urine pH 5.5 5-9 Urine Specific Bow 1.010 L 1.016-1.022 Urine Protein NEGATIVE NEGATIVE Urine Glucose (UA) NEGATIVE NEGATIVE Urine Ketones NEGATIVE NEGATIVE Urine Nitrite NEGATIVE NEGATIVE Urine Bilirubin NEGATIVE NEGATIVE Urine Urobilinogen 0.2 < = 1.0 MG/DL Urine Leukocyte Esterase NEGATIVE NEGATIVE Urine RBC (Auto) NEGATIVE NEGATIVE Urine RBC NONE /HPF Urine WBC NONE /HPF Urine Squamous Epithelial Cells 0-2 /HPF Urine Crystals NONE /LPF Urine Bacteria NEGATIVE /HPF Urine Casts NONE /LPF Urine Mucus NEGATIVE /LPF Urine Culture Indicated NO Test 07/05/21 08:45 07/05/21 10:42 07/05/21 10:43 Range/Units Troponin I 3.028 *H <0.028 NG/ML Glucometer 184 H 70-110 MG/DL Activated Partial Thromboplast Time 60 H 24-35 SEC ECG Impression ECG Comment Sinus rhythm with nonspecific intraventricular conduction delay. Diagnosis/Problems Diagnosis/Problems (1) Non-ST elevation myocardial infarction (NSTEMI), initial care episode Assessment & Plan: He appears to be suffering a non-ST elevation myocardial infarction. I have continued his aspirin and started him on intravenous heparin. He continues to have intermittent chest discomfort but also has chronic chest discomfort. I will start him on nitroglycerin paste. I spoke to his advanced heart failure specialist, Dr. Dyer, this morning who feels that cardiac catheterization is not indicated since this will not change the patient's long-term outcome. (2) Acute on chronic systolic heart failure Assessment & Plan: He has had varying degrees of left ventricular systolic dy sfunction in the past. He follows with the advanced heart failure team at [facility]. He is on chronic milrinone infusion at home. Given his recurrent hospitalizations, it may be time to talk to the patient about cardiac hospice. Since he was just discharged to home yesterday and returned within a few hours, I have made arrangements to send him to [facility]. (3) Acute kidney injury superimposed on chronic kidney disease Assessment & Plan: His renal function at the time of admission was even worse than earlier in the week. This would increase the likelihood of contrast- induced nephrotoxicity if we were to have him undergo cardiac catheterization. (4) Cardiomyopathy Status: Chronic Assessment & Plan: As above, he has had varying degrees of left ventricular systolic dysfunction over the past couple of years. We will proceed as above. He has a [employer]ICAL [employer]STRUCTOR-D device in place. (5) Primary hypertension Assessment & Plan: His blood pressures appear reasonably controlled on his home medications which should be continued. (6) Mixed hyperlipidemia Assessment & Plan: Continue statin medication. (7) Cardiac defibrillator in situ Assessment & Plan: His defibrillator appears to be functioning normally. (8) Myasthenia gravis Status: Chronic Assessment & Plan: This condition complicates his overall long-term management of his other medical conditions. IDRIS BA JR, MD Jul 05, 2021 09:40
[2021-07-05] MEDS ORDERED: inSUlin ASPART (NovoLOG) 1 UNIT/0.01 ML (CHARGE PER UNIT) SC SCH ×5 (11:00→17:00)
[2021-07-05] MEDS: HEParin 1000 UNIT/ML (10ML VIAL) FOR BOLUS IV SCH ×2 (11:20→18:02)
--- NOTE | 2021-07-05 12:32 | History & Physical-Hospitalist ---
History of Present Illness HPI/Chief Complaint Mickey Contreras is a 65 year old male with PMH HTN, HLD, T2DM, end stage heart failure, HFrEF, CAD, myasthenia gravis, methamphetamine abuse, who presented with chest pain and shortness of breath. He was just discharged home yesterday after an observation stay. After going home, he developed worsening shortness of breath. He has chronic chest pain. This was worse than normal. He denies any radiation of the pain. He also reports nausea. He was having diaphoresis. He thinks he had his last echo about a month and a half ago at . Source: patient Exam Limitations: no limitations Date Seen 07/05/21 Time Seen by a Provider: 09:40 Attending Physician Tarsha Cedeño DO PCP No,Local Physician Referring Physician Date of Admission Jul 05, 2021 at 04:00 Home Medications & Allergies Home Medications Reviewed patient Home Medication Reconciliation performed by pharmacy medication reconciliations vehicle monitor technician and/or nursing. Patients Allergies have been reviewed. Allergies Allergies Coded Allergies albumin colloid, human (Verified Allergy, Unknown, 07/02/21) carvedilol (Verified Allergy, Unknown, 07/02/21) codeine (Verified Allergy, Unknown, PATIENT HAS RECEIVED MORPHINE WITHOUT ISSUE, 07/02/21) trazodone (Verified Allergy, Unknown, 07/02/21) Past Leunyzf-Avotkm-Tdiypu Hx Patient Social History Tobacco Use?: No Smoking Status: Never a Smoker Smokeless Tobacco Frequency: Never a User Use of E-Cig and/or Vaping dev: No Substance use?: No Alcohol Use?: No Pt feels they are or have been: No Immunizations Up To Date Date of Influenza Vaccine: Jun 06, 2021 First/Initial COVID19 Vaccinat: 06/06/21 Second COVID19 Vaccination Delvis: 06/06/21 Tetanus Booster (TDap): Less Than 5 Years Hepatitis A: Yes Hepatitis B: Yes PED Vaccines UTD: Yes Date of Pneumonia Vaccine: Apr 14, 2017 Seasonal Allergies Seasonal Allergies: No Current Status Advance Directives: No Communicates: Verbally Primary Language: Occitan Preferred Spoken Language: Occitan Is interpretation needed?: No Implanted or Applied Medical D: Pacemaker, Central venous access, Port-a-cath Past Medical History Surgeries: Cardiac, Coronary Stent, Ear Surgery, Orthopedic, Pacemaker Pneumonia, Sleep Apnea Currently Using CPAP: No Currently Using BIPAP: No Cardiomyopathy, Coronary Artery Disease, High Cholesterol, Hypertension, Peripheral Vascular TIA Gastroesophageal Reflux, Ulcer Arthritis, Gout Diabetes, Insulin dep, Lupus Dysphagia, Chronic Ear Infection Loss of Vision: Denies Hearing Impairment: Hard of Hearing Sleep Difficulties, Anxiety Blood Disorders: No Adverse Reaction/Blood Tranf: No Diastolic dysfunction with EF of 50-55%, per echo 07/2019 but [facility] 11/30/20 Myasthenia gravis 15% EF 25% Multiple stents [place] Neuropathy Esophageal Ulcers Arthritis Diabetes Mellitus, insulin dependent Anxiety CAD inoperable awaiting heart transplant Family Medical History Reviewed Nursing Family Hx Alcoholism 19 FATHER Cancer 19 FATHER 19 MOTHER Chest pain 19 MOTHER Family history: Arthritis (grandmother) G8 SISTER Family history: Cardiovascular disease 19 MOTHER Family history: Diabetes mellitus G8 SISTER Family history: Hypertension 19 FATHER 19 MOTHER Hearing loss 19 FATHER Heart disease 19 MOTHER Malignant neoplasm of lung 19 MOTHER Myocardial infarction 19 MOTHER Stroke 19 FATHER No Pertinent Family Hx, Heart Disease, Cancer, Diabetes, Stroke Review of Systems Constitutional: diaphoresis EENTM: no symptoms reported Respiratory: short of breath Cardiovascular: chest pain Gastrointestinal: nausea Genitourinary: no symptoms reported Musculoskeletal: no symptoms reported Skin: no symptoms reported Psychiatric/Neurological: No Symptoms Reported Physical Exam Physical Exam Vital Signs Vital Signs - First Documented 07/05/21 08:13 FiO2 97 Capillary Refill : Less Than 3 Seconds Height, Weight, BMI Height: 5'8.00" Weight: 205lbs. 0.0oz. [id number]; 33.19 BMI Method:Stated General Appearance: No Apparent Distress, Chronically ill, Obese HEENT: PERRL/EOMI, Pharynx Normal Neck: Normal Inspection, Supple Respiratory: Lungs Clear, Normal Breath Sounds, No Respiratory Distress Cardiovascular: Regular Rate, Rhythm, No Murmur Gastrointestinal: Normal Bowel Sounds, Non Tender, Soft Extremity: Normal Inspection, Non Tender, Pedal Edema Neurologic/Psychiatric: Alert, Oriented x3, No Motor/Sensory Deficits, Normal Mood/Affect Skin: Normal Color, Warm/Dry Results Results/Procedures Labs Laboratory Tests 07/04/21 20:14 Patient resulted labs reviewed. Imaging: Reviewed Imaging Report Assessment/Plan Admission Diagnosis NSTEMI Admission Status: Inpatient Order (span 2 midnights) Reason for Inpatient Admission: Possible cardiology intervention Assessment and Plan NSTEMI CAD HFrEF End stage heart failure Receiving chronic inotropic medication HTN HLD Poor prognosis Troponin elevated significantly from baseline Cardiology consulted Continue Milrinone Given ASA Started on Heparin gtt Reportedly intolerant to Plavix and Brilinta IV Lasix given Dr. Garcia awaiting return call from Dr. Dyer, heart failure specialist at [facility] on CKD Likely cardiorenal IV Lasix T2DM Levemir decreased dose Novolog with meals decreased dose Sliding scale insulin Myasthenia gravis Clinically significant, no acute needs Diagnosis/Problems Diagnosis/Problems (1) NSTEMI (non-ST elevated myocardial infarction) Status: Acute (2) Coronary artery disease Status: Chronic (3) End stage heart failure Status: Chronic (4) Receiving inotropic medication Status: Chronic (5) Cardiomyopathy Status: Chronic (6) Acute kidney injury superimposed on chronic kidney disease (7) HTN (hypertension) Status: Acute (8) Hyperlipidemia (9) T2DM (type 2 diabetes mellitus) Status: Chronic Qualifiers: 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
[2021-07-05] MEDS ORDERED: FUROSEMIDE 40 MG/4 ML INJ (LASIX) IVP NR (12:45)
[2021-07-05] MEDS ORDERED: NITROGLYCERIN 2% OINT 1 GM UNIT DOSE PACKET ONE (15:53)
[2021-07-05] MEDS ORDERED: HYDROmorphone 2 MG/ML VIAL (DILAUDID) ONE (16:03)
[2021-07-05] MEDS ORDERED: NITROGLYCERIN 2% OINT 1 GM UNIT DOSE PACKET TOP SCH (18:00)
[2021-07-05 19:18] VITALS: BP 111/6
[2021-07-06] MEDS ORDERED: MAGNESIUM 1 GM/100 ML IVPB 100 ML IV SCH (06:00)
[2021-07-06] MEDS ORDERED: KCL 20 MEQ TAB (K-DUR) PO SCH (06:00)
[2021-07-06] MEDS ORDERED: POTASSIUM CL 10MEQ/50ML IVPB 50 ML IV SCH (06:00)
== END 2021-07-05 19:15 | disposition home health service (06) | DRG 280 ==
LOC: EDUNIT# 22:01 → ER 22:03 → ICU 07-05 04:00
PROVIDERS: ADMIT Internal Medicine; ATTEND Internal Medicine
DX: I21.4 Non-ST elevation (NSTEMI) myocardial infarction (principal); I50.23 Acute on chronic systolic (congestive) heart failure; I42.9 Cardiomyopathy, unspecified; N17.9 Acute kidney failure, unspecified; I13.0 Hypertensive heart and chronic kidney disease with heart failure and stage 1 through stage 4 chronic kidney disease, or unspecified chronic kidney disease; G70.00 Myasthenia gravis without (acute) exacerbation; I25.10 Atherosclerotic heart disease of native coronary artery without angina pectoris; E78.00 Pure hypercholesterolemia, unspecified; K21.9 Gastro-esophageal reflux disease without esophagitis; M19.90 Unspecified osteoarthritis, unspecified site; E78.2 Mixed hyperlipidemia; Z20.822 Contact with and (suspected) exposure to COVID-19; N18.9 Chronic kidney disease, unspecified; M10.9 Gout, unspecified; E11.40 Type 2 diabetes mellitus with diabetic neuropathy, unspecified; F41.9 Anxiety disorder, unspecified; Z95.5 Presence of coronary angioplasty implant and graft; Z86.73 Personal history of transient ischemic attack (TIA), and cerebral infarction without residual deficits; Z95.810 Presence of automatic (implantable) cardiac defibrillator; Z79.82 Long term (current) use of aspirin; Z79.4 Long term (current) use of insulin; Z79.899 Other long term (current) drug therapy; I25.2 Old myocardial infarction
CPT/HCPCS: 36415; 36556; 71045; 80053; 81000; 82947; 83735; 83874; 83880; 84484; 85025; 85610; 85730; 87081; 87636; 93005; 93041; 96374; 96375; 96376

== ENCOUNTER 2021-07-18 12:54 | Outpatient (CLI) | payer MEDICARE, MEDICAID ==
[~2021-07-18] VITALS: Ht 172.7 cm; Wt 99.0 kg
[2021-07-18] MEDS ORDERED: WATER (STERILE) FOR INJECTION 10 ML ONE (13:27)
[2021-07-18] MEDS ORDERED: ALTEPLASE 2 MG (CATHFLO) ONE (13:27)
[2021-07-18] MEDS ORDERED: ALTEPLASE 2 MG (CATHFLO) IV ONE (13:45)
[2021-07-18 15:40] VITALS: BP 128/68
== END 2021-07-18 15:40 ==
LOC: SDC 12:54
PROVIDERS: ATTEND Nurse Practitioner
DX: Z01.89 Encounter for other specified special examinations (principal)
CPT/HCPCS: 76937

== ENCOUNTER 2021-09-17 13:19 | Outpatient (RCR) | payer MEDICARE, MEDICAID ==
[~2021-09-17 13:19] MED LIST changes: +CYCL10TA25 PO; -CYCL10TA9 PO
[2021-09-17 13:45] VITALS: BP 188/67
[2021-09-18] MEDS ORDERED: DOXY100T2 PO (03:36)
[2021-09-18] MEDS ORDERED: CEFD300C3 PO (03:36)
== END 2021-10-07 | disposition home or self-care (01) ==
LOC: SDC 13:19
PROVIDERS: ATTEND Nurse Practitioner
DX: Z45.2 Encounter for adjustment and management of vascular access device (principal)
CPT/HCPCS: 99211

== ENCOUNTER 2021-09-18 01:24 | Emergency (ER) | payer MEDICARE, MEDICAID ==
[~2021-09-18] VITALS: Ht 172.7 cm; Wt 93.9 kg
[2021-09-18 01:30] VITALS: BP 135/85
[2021-09-18] MEDS ORDERED: NS IV 1000 ML 1,000 ML IV SCH (01:30)
[2021-09-18] MEDS ORDERED: ONDANSETRON 4 MG/2 ML (SDV) Z0FRAN IV PRN (01:30)
[2021-09-18] MEDS ORDERED: ACETAMINOPHEN 500 MG TAB (TYLENOL) PO PRN (01:30)
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
[2021-09-18 01:58] LABS: BASOPHILS % (AUTO) 0 % (0-10); EOSINOPHILS # (AUTO) 0.2 10^3/uL (0.0-0.3); EOSINOPHILS % (AUTO) 1 % (0-10); HEMATOCRIT 36 % (40-54); HEMOGLOBIN 11.7 g/dL (13.3-17.7); LYMPHOCYTES % (AUTO) 7 % (12-44); MEAN CORPUSCULAR HEMOGLOBIN 25 pg (25-34); MEAN CORPUSCULAR HGB CONC 32 g/dL (32-36); MEAN CORPUSCULAR VOLUME 77 fL (80-99); MEAN PLATELET VOLUME 9.6 fL (9.0-12.2); MONOCYTES # (AUTO) 0.6 10^3/uL (0.0-1.0); MONOCYTES % (AUTO) 5 % (0-12); NEUTROPHILS # (AUTO) 11.4 10^3/uL (1.8-7.8); NEUTROPHILS % (AUTO) 86 % (42-75); PLATELET COUNT 253 10^3/uL (130-400); WHITE BLOOD COUNT 13.3 10^3/uL (4.3-11.0)
[2021-09-18 02:08] LABS: ALBUMIN 3.4 GM/DL (3.2-4.5); POTASSIUM 4.2 MMOL/L (3.6-5.0)
[2021-09-18 02:09] LABS: CALCIUM 8.7 MG/DL (8.5-10.1)
[2021-09-18 02:11] LABS: PROTHROMBIN TIME PATIENT 13.7 SEC (12.2-14.7); TOTAL PROTEIN 7.2 GM/DL (6.4-8.2)
[2021-09-18 02:12] LABS: BILIRUBIN,TOTAL 0.5 MG/DL (0.1-1.0)
[2021-09-18 02:13] LABS: ERYTHROCYTE SEDIMENTATION RATE 33 MM/HR (0-30)
[2021-09-18 02:14] LABS: CREATININE SERUM 1.53 MG/DL (0.60-1.30)
[2021-09-18 02:18] LABS: MAGNESIUM 1.3 MG/DL (1.6-2.4)
[2021-09-18 02:27] LABS: CREATINE KINASE MB 1.9 NG/ML (<6.6)
[2021-09-18] MEDS ORDERED: CEFEPIME INJECTION 1,000 MG in NS (IVPB) 50 ML IV ONE (02:45)
[2021-09-18] MEDS ORDERED: VANCOMYCIN INJECTION 1,000 MG in NS (IVPB) 250 ML IV ONE (02:45)
[2021-09-18 02:49] LABS: BILIRUBIN,URINE NEGATIVE (NEGATIVE); CLARITY,URINE CLEAR; COLOR,URINE YELLOW; GLUCOSE, URINE (UA) NEGATIVE (NEGATIVE); KETONES,URINE NEGATIVE (NEGATIVE); LEUKOCYTE ESTERASE ,URINE NEGATIVE (NEGATIVE); NITRITE,URINE NEGATIVE (NEGATIVE); PROTEIN,URINE 1+ (NEGATIVE)
[2021-09-18 02:57] LABS: BACTERIA,URINE NEGATIVE /HPF; URINE OTHER LG SPERM /HPF
[2021-09-18 03:03] LABS: AMPHETAMINE SCREEN, URINE NEGATIVE (NEGATIVE); BARBITURATE SCREEN URINE NEGATIVE (NEGATIVE); BENZODIAZEPINES SCREEN URINE NEGATIVE (NEGATIVE); CANNABINOID SCREEN, URINE NEGATIVE (NEGATIVE); COCAINE SCREEN URINE NEGATIVE (NEGATIVE); METHADONE STAT NEGATIVE (NEGATIVE); METHAMPHETAMINE SCREEN URINE S NEGATIVE (NEGATIVE); OPIATE SCREEN URINE POSITIVE (NEGATIVE); OXYCODONE STAT NEGATIVE (NEGATIVE); PROPOXYPHENE STAT NEGATIVE (NEGATIVE); TRICYCLIC ANTIDEPRESSANTS SCRE NEGATIVE (NEGATIVE)
[2021-09-18] MEDS ORDERED: CEFD300C3 PO (03:36)
[2021-09-18] MEDS ORDERED: DOXY100T2 PO (03:36)
--- NOTE | 2021-09-18 04:11 | Diagnostic Imaging Report ---
EXAMINATION: Chest 1 view HISTORY: CP COMPARISON: 07/04/2021 FINDINGS: Stable enlargement of the cardiac silhouette. Left-sided cardiac device is unchanged. Right-sided IJ central line is unchanged. There are low lung volumes with bibasilar interstitial opacities. No pleural effusion or pneumothorax. Metallic densities overlying the right lower chest wall. Chronic right rib deformities. IMPRESSION: 1. Stable cardiomegaly without acute radiographic abnormality in the chest. Dictated by: Dictated on workstation # [id number]
== END 2021-09-18 05:30 | disposition home or self-care (01) ==
LOC: EDUNIT# 01:24 → ER 01:25
DX: T80.211A Bloodstream infection due to central venous catheter, initial encounter (principal); B96.1 Klebsiella pneumoniae [K. pneumoniae] as the cause of diseases classified elsewhere; I13.0 Hypertensive heart and chronic kidney disease with heart failure and stage 1 through stage 4 chronic kidney disease, or unspecified chronic kidney disease; E11.22 Type 2 diabetes mellitus with diabetic chronic kidney disease; N18.9 Chronic kidney disease, unspecified; I50.9 Heart failure, unspecified; Z79.4 Long term (current) use of insulin; G70.00 Myasthenia gravis without (acute) exacerbation; I25.10 Atherosclerotic heart disease of native coronary artery without angina pectoris; Z91.19 Patient's noncompliance with other medical treatment and regimen; R77.8 Other specified abnormalities of plasma proteins; I25.82 Chronic total occlusion of coronary artery; I42.9 Cardiomyopathy, unspecified; E78.00 Pure hypercholesterolemia, unspecified; G47.30 Sleep apnea, unspecified; K21.9 Gastro-esophageal reflux disease without esophagitis; E66.9 Obesity, unspecified; Z68.31 Body mass index [BMI] 31.0-31.9, adult; M32.9 Systemic lupus erythematosus, unspecified; Z99.81 Dependence on supplemental oxygen; Z87.01 Personal history of pneumonia (recurrent); Z95.810 Presence of automatic (implantable) cardiac defibrillator; H91.90 Unspecified hearing loss, unspecified ear; F41.9 Anxiety disorder, unspecified; Z95.5 Presence of coronary angioplasty implant and graft; Z95.820 Peripheral vascular angioplasty status with implants and grafts; Z82.49 Family history of ischemic heart disease and other diseases of the circulatory system; Z82.2 Family history of deafness and hearing loss; Z79.82 Long term (current) use of aspirin; Z79.52 Long term (current) use of systemic steroids; Z79.899 Other long term (current) drug therapy; Z88.5 Allergy status to narcotic agent; Z88.8 Allergy status to other drugs, medicaments and biological substances
CPT/HCPCS: 71045; 80053; 80306; 81000; 82550; 82553; 82947; 83605; 83615; 83735; 83874; 83880; 84145; 84484; 85025; 85610; 85652; 85730; 86141; 87040; 87077; 87088; 87184; 87186; 87636; 93005; 93041; 96374; 96375; 99284; G0480; 36415; 80320

== ENCOUNTER → 2021-10-07 | Outpatient (RCR) | payer MEDICARE, MEDICAID ==
[2021-09-30 13:25] VITALS: BP 138/73
[2021-09-30 14:17] LABS: BASOPHILS % (AUTO) 0 % (0-10); EOSINOPHILS # (AUTO) 0.3 10^3/uL (0.0-0.3); EOSINOPHILS % (AUTO) 3 % (0-10); HEMATOCRIT 39 % (40-54); HEMOGLOBIN 11.7 g/dL (13.3-17.7); LYMPHOCYTES # (AUTO) 0.7 10^3/uL (1.0-4.0); LYMPHOCYTES % (AUTO) 7 % (12-44); MEAN CORPUSCULAR HEMOGLOBIN 24 pg (25-34); MEAN CORPUSCULAR HGB CONC 30 g/dL (32-36); MEAN CORPUSCULAR VOLUME 82 fL (80-99); MEAN PLATELET VOLUME 8.9 fL (9.0-12.2); MONOCYTES # (AUTO) 0.5 10^3/uL (0.0-1.0); MONOCYTES % (AUTO) 5 % (0-12); NEUTROPHILS # (AUTO) 9.2 10^3/uL (1.8-7.8); NEUTROPHILS % (AUTO) 85 % (42-75); PLATELET COUNT 344 10^3/uL (130-400); WHITE BLOOD COUNT 10.8 10^3/uL (4.3-11.0)
[2021-09-30 14:29] LABS: ALBUMIN 3.8 GM/DL (3.2-4.5); POTASSIUM 4.2 MMOL/L (3.6-5.0)
[2021-09-30 14:30] LABS: CALCIUM 9.7 MG/DL (8.5-10.1)
[2021-09-30 14:33] LABS: BILIRUBIN,TOTAL 0.5 MG/DL (0.1-1.0)
[2021-09-30 14:35] LABS: BAND NEUTROPHILS 0 %; BASOPHILS % (MANUAL) 0 %; CREATININE SERUM 1.74 MG/DL (0.60-1.30); EOSINOPHILS % (MANUAL) 1 %; LYMPHOCYTES % (MANUAL) 4 %; MONOCYTES % (MANUAL) 1 %; NEUTROPHILS % (MANUAL) 94 %; RBC MORPH NORMAL
[2021-10-07 13:15] VITALS: BP 145/80
[2021-10-07 13:31] LABS: BASOPHILS % (AUTO) 0 % (0-10); EOSINOPHILS # (AUTO) 0.1 10^3/uL (0.0-0.3); EOSINOPHILS % (AUTO) 1 % (0-10); HEMATOCRIT 38 % (40-54); HEMOGLOBIN 11.5 g/dL (13.3-17.7); LYMPHOCYTES # (AUTO) 0.7 10^3/uL (1.0-4.0); LYMPHOCYTES % (AUTO) 7 % (12-44); MEAN CORPUSCULAR HEMOGLOBIN 25 pg (25-34); MEAN CORPUSCULAR HGB CONC 31 g/dL (32-36); MEAN CORPUSCULAR VOLUME 82 fL (80-99); MONOCYTES # (AUTO) 0.5 10^3/uL (0.0-1.0); MONOCYTES % (AUTO) 5 % (0-12); NEUTROPHILS # (AUTO) 8.3 10^3/uL (1.8-7.8); NEUTROPHILS % (AUTO) 86 % (42-75); PLATELET COUNT 338 10^3/uL (130-400); WHITE BLOOD COUNT 9.7 10^3/uL (4.3-11.0)
[2021-10-07 13:42] LABS: ANISOCYTOSIS SLIGHT; HYPOCHROMASIA SLIGHT; LYMPHOCYTES % (MANUAL) 4 %; MONOCYTES % (MANUAL) 3 %; NEUTROPHILS % (MANUAL) 93 %; POIKILOCYTOSIS SLIGHT
[2021-10-07 13:46] LABS: ALBUMIN 3.9 GM/DL (3.2-4.5); BILIRUBIN,TOTAL 0.5 MG/DL (0.1-1.0); CALCIUM 8.8 MG/DL (8.5-10.1); CREATININE SERUM 1.85 MG/DL (0.60-1.30); POTASSIUM 4.2 MMOL/L (3.6-5.0); TOTAL PROTEIN 7.9 GM/DL (6.4-8.2)
== END | disposition home or self-care (01) ==
LOC: SDC 09-30 13:19 → EDSTATUS 09-30 13:22 → SDC 12:57
PROVIDERS: ATTEND Internal Medicine Advanced Heart Failure and Transplant Cardiology
DX: A41.9 Sepsis, unspecified organism (principal); I50.23 Acute on chronic systolic (congestive) heart failure; R57.0 Cardiogenic shock
CPT/HCPCS: 80053; 85007; 85027; G0463; 36415; 99211